=== PATIENT | male | born 1965 | race Caucasian/White ===

== ENCOUNTER 2020-02-29 08:51 | Outpatient (REF) | payer OTHER, SELFPAY | END 2020-02-29 08:52 | disposition home or self-care (01) | LOC: HO.LAB 08:51 | PROVIDERS: Visit Provider Internal Medicine | DX: Z20.828 Contact with and (suspected) exposure to other viral communicable diseases (principal) | CPT/HCPCS: C9803; U0003 ==

== ENCOUNTER 2020-09-03 10:39 | Emergency (ER) | payer OTHER, SELFPAY ==
[2020-09-03 10:47] VITALS: BP 165/98; PULSE 64; RESP 18; TEMP 36.5; O2SAT 96; BMI 32.8
--- NOTE | 2020-09-03 10:53 | PC.NURSE ---
PT USED [facility] IN [facility]. PT PROVIDED WITH PO FLUIDS.
--- NOTE | 2020-09-03 11:04 | ED_ITS ---
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 and in the last few months had LASIK on the right eye which at baseline has 2020 vision <CHI Estes Last Filed: 09/10/20 14:31> Related Data Home medications: Home Medications Medication Instructions Recorded Confirmed labetalol 300 mg tablet 300 mg PO BID 02/10/20 02/10/20 omeprazole 20 mg capsule,delayed 20 mg PO DAILY 02/10/20 02/10/20 release Previous Rx's Medication Instructions Recorded gemfibrozil 600 mg tablet 600 mg PO BID #180 tab 09/18/20 <CHI Estes Last Filed: 09/10/20 14:31> Allergies/adverse reactions: Allergies Allergy/AdvReac Type Severity Reaction Status Date / Time No Known Allergies Allergy Verified 02/10/20 09:42 [No Known Allergies*] <CHI Estes Last Filed: 09/10/20 14:31> Review of Systems Review of Systems: Positive for chemical spill exposure to eye No fever no chills no dizziness no weakness no headache no vision loss no eye pain no photophobia no discharge from high no other rash no chest pain no difficulty breathing no nausea no vomiting <CHI Estes Last Filed: 09/10/20 14:31> Yes all other systems are reviewed and are negative <CHI Estes Last Filed: 09/10/20 14:31> [facility] Past Medical History Source: nursing notes reviewed <CHI Estes Last Filed: 09/10/20 14:31> Medical History: Medical History (Updated 09/04/20 @ 00:01 by Blas Fischer) Benign essential hypertension Bipolar depression Diabetes mellitus GERD without esophagitis Mixed hyperlipidemia Obesity (BMI 30-39.9) Other bursal cyst, left ankle and foot Other cyst of bone, left hand <CHI Estes - Last Filed: 09/10/20 14:31> Surgical History: Surgical History No pertinent past surgical history <CHI Estes - Last Filed: 09/10/20 14:31> Family History Family History: Family History Father Advanced cirrhosis of liver Alcoholic cirrhosis Mother Dementia <CHI Estes - Last Filed: 09/10/20 14:31> Social History Social History: Social History (Updated 02/10/20 @ 09:47 by Fritz Shelley MD) Alcohol intake: former Advance Directives: Yes Advance Directives Information Provided: No Advance Directives on File: No <CHI Estes - Last Filed: 09/10/20 14:31> Physical Exam Vital Signs: Vital Signs: Last Vital Signs Temp 97.7 F 09/03/20 10:47 Pulse 64 09/03/20 10:47 Resp 18 09/03/20 10:47 BP 165/98 H 09/03/20 10:47 Pulse Ox 96 09/03/20 10:47 Body Mass Index 32.8 <CHI Estes - Last Filed: 09/10/20 14:31> Vital Signs: Last Vital Signs Temp 97.7 F 09/03/20 10:47 Pulse 64 09/03/20 10:47 Resp 18 09/03/20 10:47 BP 165/98 H 09/03/20 10:47 Pulse Ox 96 09/03/20 10:47 Body Mass Index 32.8 <Ronny Noland MD - Last Filed: 10/14/20 18:13> General appearance no acute distress The head is normocephalic atraumatic The eyes pupils equal round reactive to light, extraocular motions are intact Visual acuity is 2020 bilaterally, no discharge no redness Neck is supple Respiratory no acute distress Extremities no rash <CHI Estes - Last Filed: 09/10/20 14:31> Course Course Course Narrative: Both eyes are tested with pH strip and it is normal 7.0 Both eyes are stained with fluorescein, there is no dye uptake in either eye Patient did wash with copious water when he had his bleach exposure and is now asymptomatic and is discharged <CHI Estes - Last Filed: 09/10/20 14:31> I have reviewed the chart <Ronny Noland MD - Last Filed: 10/14/20 18:13> Discharge Plan Discharge Clinical Impression: Chemical exposure of eye <CHI Estes - Last Filed: 09/10/20 14:31> Patient Disposition: Home, Self-Care <CHI Estes Last Filed: 09/10/20 14:31> Additional Instructions: Our testing today showed a normal pH and no evidence of abrasion or ulceration or burn to the eye The vision in your normal good eye was 2020, we did not check the blind eye Follow with work connection if needed for any other issues related to this injury Return any concerns <CHI Estes - Last Filed: 09/10/20 14:31> Prescriptions: No Action gemfibrozil 600 mg tablet 600 mg PO BID Qty: 180 RF: 11 labetalol 300 mg tablet 300 mg PO BID RF: 0 omeprazole 20 mg capsule,delayed release(DR/EC) 20 mg PO DAILY RF: 0 <CHI Estes - Last Filed: 09/10/20 14:31> Referrals: Allen Henning MD [Physician] - 2 days (Chemical exposure to eyes, normal exam at the time of visit in the ER) <CHI Estes - Last Filed: 09/10/20 14:31> Interventions: ED Discharge Assessment Last Done: 09/03/20 11:42 <CHI Estes Last Filed: 09/10/20 14:31> Discharge Date/Time: 09/03/20 11:44 <CHI Estes Last Filed: 09/10/20 14:31>
[2020-09-03] MEDS: Tetracaine HCl/PF 0.5% Oph Sol 4 ML DROPS 3 DROP EYE-BOTH (11:11)
[2020-09-03] MEDS: Fluorescein Sodium STRIP 1 STRIP EYE-BOTH (11:12)
== END 2020-09-03 11:44 | disposition home or self-care (01) ==
PROVIDERS: Emergency Provider Emergency Medicine; PCP Internal Medicine
DX: Z77.098 Contact with and (suspected) exposure to other hazardous, chiefly nonmedicinal, chemicals (principal); Z57.9 Occupational exposure to unspecified risk factor
CPT/HCPCS: 99283

== ENCOUNTER 2020-10-29 18:42 | Inpatient (IN) | payer OTHER, SELFPAY ==
--- NOTE | 2020-10-29 | ECG_ITS ---
Test Reason : HYPOTENTION Blood Pressure : / mmHG Vent. Rate : 061 BPM Atrial Rate : 061 BPM P-R Int : 204 ms QRS Dur : 110 ms QT Int : 508 ms P-R-T Axes : 037 038 040 degrees QTc Int : 511 ms Normal sinus rhythm Prolonged QT Abnormal ECG When compared with ECG of 09-OCT-2018 20:34, Vent. rate has decreased BY 32 BPM QRS duration has increased QT has lengthened Referred By: Ronny Noland Electronically Signed By:ISRA HERNANDEZ MD
--- NOTE | ~2020-10-29 | CT_ITS ---
EXAMINATION: CT ABDOMEN AND PELVIS WITHOUT CONTRAST CLINICAL INFORMATION: Lower abdominal pain, question diverticulitis COMPARISON: 06/30/2016 TECHNIQUE: Multidetector volumetric imaging was performed from the superior aspect of the liver through the pubic symphysis. Sagittal and coronal reformatted images were obtained on the technologist's workstation. This CT examination was performed using dose optimization techniques as appropriate, variously including the following: *Automated exposure control *Adjustment of mA and/or kV according to patient size (this includes techniques or standardized protocols for targeted exams where dose is matched to indication/reason for exam; i.e. extremities or head) *Use of iterative reconstruction technique DLP: 719 mGy-cm FINDINGS: LUNG BASES: The visualized lung bases are unremarkable. Coronary artery calcifications are present. LIVER, GALLBLADDER, AND BILIARY TREE: The liver demonstrates hypoattenuation consistent with steatosis. No biliary ductal dilatation is present. The gallbladder is unremarkable with no evidence of radiopaque gallstones, gallbladder wall thickening, or obvious pericholecystic inflammatory changes. PANCREAS: No significant peripancreatic stranding. Prior cyst adjacent to the pancreatic tail on 06/30/2016 now appears essentially resolved. SPLEEN: Unremarkable. ADRENAL GLANDS: Unremarkable. KIDNEYS AND URETERS: The kidneys are normal in size, shape, and attenuation. No hydronephrosis, hydroureter, or calculi seen. BLADDER: Unremarkable. GASTROINTESTINAL TRACT: The small and large bowel are unremarkable. No findings of diverticulitis. The appendix is unremarkable. No free fluid or free air is seen. ABDOMINAL WALL: No significant hernia is appreciated. LYMPH NODES: Normal. VASCULAR: There is atherosclerotic calcification along the aorta. PELVIC VISCERA: Unremarkable. OSSEOUS STRUCTURES: Scattered endplate osteophytes are noted in the spine. CT/CT abdomen pelvis wo con IMPRESSION: No acute findings identified in the abdomen/pelvis. Hepatic steatosis.
[2020-10-29 18:55] VITALS: BP 78/40; PULSE 63; RESP 16; TEMP 36.5; O2SAT 97; BMI 31.2
--- NOTE | 2020-10-29 19:02 | ED_ITS ---
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 Patient states his last drink was yesterday. <Ronny Noland MD - Last Filed: 10/30/20 01:12> MD elicited complaint: abdominal pain <Ronny Noland MD - Last Filed: 10/30/20 01:12> Pertinent past history: other (alcoholism and pancreatitis) <Ronny Noland MD - Last Filed: 01:12> Onset (ago): day(s) (3) <Ronny Noland MD - Last Filed: 10/30/20 01:12> Location: epigastric <Ronny Noland MD - Last Filed: 10/30/20 01:12> Severity: moderate <Ronny Noland MD - Last Filed: 10/30/20 01:12> Quality: aching <Ronny Noland MD - Last Filed: 10/30/20 01:12> Associated symptoms: nausea and vomiting <Ronny Noland MD - Last Filed: 10/30/20 01:12> Related Data Home Medications: Home Medications Medication Instructions Recorded Confirmed labetalol 300 mg tablet 300 mg PO BID 02/10/20 02/10/20 omeprazole 20 mg capsule,delayed 20 mg PO DAILY 02/10/20 02/10/20 release Previous Rx's Medication Instructions Recorded gemfibrozil 600 mg tablet 600 mg PO BID #180 tab 09/18/20 metformin 500 mg tablet 500 mg PO BID #60 tab 10/20/20 <Ronny Noland MD - Last Filed: 10/30/20 01:12> Allergies/Adverse Reactions: Allergies Allergy/AdvReac Type Severity Reaction Status Date / Time No Known Allergies Allergy Verified 02/10/20 09:42 [No Known Allergies*] <Ronny Noland MD - Last Filed: 10/30/20 01:12> Review of Systems Constitutional: Reports no additional constitutional complaints <Ronny Noland MD - Last Filed: 10/30/20 01:12> Eyes: Reports no additional eye complaints <Ronny Noland MD - Last Filed: 10/30/20 01:12> Denies dizziness <Ronny Noland MD - Last Filed: 10/30/20 01:12> Cardiovascular: Reports no additional cardiovascular complaints <Ronny Noland MD - Last Filed: 10/30/20 01:12> Respiratory: Reports as per HPI <Ronny Noland MD - Last Filed: 10/30/20 01:12> Gastrointestinal: Reports no additional gastrointestinal complaints <Ronny Noland MD - Last Filed: 10/30/20 01:12> Musculoskeletal: Reports no additional musculoskeletal complaints <Ronny Noland MD - Last Filed: 10/30/20 01:12> Skin/Breast: Denies rash <Ronny Noland MD - Last Filed: 10/30/20 01:12> Reports system reviewed and no additional complaints, except as doc umented, Denies dizziness and Denies Sensory deficit (Neuro) <Ronny Noland MD - Last Filed: 10/30/20 01:12> Psychiatric: Denies anxiety <Ronny Noland MD - Last Filed: 10/30/20 01:12> Physical Exam Vital Signs: Vital Signs: Last Vital Signs Temp 97.8 F 10/30/20 04:00 Pulse 71 10/30/20 04:00 Resp 18 10/30/20 04:00 BP 92/54 L 10/30/20 04:00 Pulse Ox 94 10/30/20 04:00 Body Mass Index 31.2 <Ronny Noland MD - Last Filed: 10/30/20 01:12> Vital Signs: Last Vital Signs Temp 97.8 F 10/30/20 04:00 Pulse 71 10/30/20 04:00 Resp 18 10/30/20 04:00 BP 92/54 L 10/30/20 04:00 Pulse Ox 94 10/30/20 04:00 Body Mass Index 31.2 <Silas Jimenez MD - Last Filed: 10/30/20 04:35> Const: Other: male vomiting <Ronny Noland MD - Last Filed: 10/30/20 01:12> Nutritional Appearance: average body habitus <Ronny Noland MD - Last Filed: 10/30/20 01:12> Orientation/consciousness: oriented to person and patient oriented x3 <Ronny Noland MD - Last Filed: 10/30/20 01:12> Limitations: no limitations <Ronny Noland MD - Last Filed: 10/30/20 01:12> HENMT: Head: Yes normal to inspection <Ronny Noland MD - Last Filed: 10/30/20 01:12> Ears: external ears normal <Ronny Noland MD - Last Filed: 10/30/20 01:12> General nose exam: Normal external nose present <Ronny Noland MD - Last Filed: 10/30/20 01:12> Mouth: Normal oral and palatal mucosa present and oropharynx normal <Ronny Noland MD - Last Filed: 10/30/20 01:12> Throat: Yes posterior oropharynx normal <Ronny Noland MD - Last Filed: 10/30/20 01:12> Eyes: General: appearance normal, both eyes and all related structures < Ronny Noland MD - Last Filed: 10/30/20 01:12> Neck: Other: supple <Ronny Noland MD - Last Filed: 10/30/20 01:12> Neck: Yes normal visual inspection <Ronny Noland MD - Last Filed: 10/30/20 01:12> Chest: Chest palpation & inspection: normal inspection of the chest <Ronny Noland MD - Last Filed: 10/30/20 01:12> Resp: Auscultation: clear to auscultation bilaterally <Ronny Noland MD - Last Filed: 10/30/20 01:12> Cardio: Jugular venous distension: no JVD <Ronny Noland MD - Last Filed: 10/30/20 01:12> Rate: regular rate <Ronny Noland MD - Last Filed: 10/30/20 01:12> Rhythm: regular rhythm <Ronny Noland MD - Last Filed: 10/30/20 01:12> Heart sounds: S1 normal heart sound present and S2 normal heart sound present <Ronny Noland MD - Last Filed: 10/30/20 01:12> GI: Inspection: Yes normal to inspection <Ronny Noland MD - Last Filed: 10/30/20 01:12> Palpation (GI): Soft to palpation, nontender and No hepatosplenomegaly present <Ronny Noland MD - Last Filed: 10/30/20 01:12> Auscultation: normal bowel sounds <Ronny Noland MD - Last Filed: 10/30/20 01:12> : General: Yes no CVA tenderness <Ronny Noland MD - Last Filed: 10/30/20 01:12> Back/Spine/Pelvis: Back: no CVA tenderness <Ronny Noland MD - Last Filed: 10/30/20 01:12> Skin: General skin exam: no rashes or lesions noted <oRnny Noland MD - Last Filed: 10/30/20 01:12> Neuro: General: oriented to person and patient oriented x3 <Ronny Noland MD - Last Filed: 10/30/20 01:12> Cranial nerves: Yes CN's II-XII intact bilaterally <Ronny Noland MD - Last Filed: 10/30/20 01:12> Motor exam (neuro): 5/5 motor strength present throughout <Ronny Noland MD - Last Filed: 10/30/20 01:12> Sensory Exam: No Sensory deficit (Neuro) <Ronny Noland MD - Last Filed: 10/30/20 01:12> Extrem: General: Yes normal to inspection <Ronny Noland MD - Last Filed: 10/30/20 01:12> Psych: Appearance: grossly normal <Ronny Noland MD - Last Filed: 10/30/20 01:12> Course Course Course Narrative: Patient placed in physician observation at 1am The indication for observation is that the patient needs more time for his vomiting to settle down and wants to see detox counselor. At this time the patient is well developed well nourished, lungs clear, CV RRR, abd nontender, neuro is intact continuing with IVF and nausea medicine <Ronny Noland MD - Last Filed: 10/30/20 01:12> MDM - Abdominal Pain MDM Narrative Medical decision making narrative: 3 am Patient seen and evaluated for her and [facility] patient alcoholic came for increased nausea vomiting for last 2 days initial blood pressure was 78/40 improved to 98/60 after 5 L of IV fluid patient is still complaining of lower abdominal pain. On examination patient has percussion tenderness on the right lower quadrant? Appendicitis?? Lab workup showed WBC 93619 bicarb of 21 decreased to 14 with an anion gap of 32 blood glucose 189 magnesium 1.1 normal lipase. Serum creatinine of 1.8 Patient in severe metabolic acidosis etiology not clear also has acute renal failure. Will do abdomen set CT to rule out acute appendicitis as a cause of metabolic acidosis. Will check lactic acid level ketones blood cultures start on phenobarb protocol and plan to admit <Silas Jimenez MD - Last Filed: 10/30/20 04:35> Lab Data Result diagrams: : 10/29/20 19:16 10/30/20 01:36 <Ronny Noland MD - Last Filed: 10/30/20 01:12> Labs: Lab Results 10/29/20 10/29/20 10/29/20 Range/Units 19:16 19:16 19:16 WBC 12.0 H (4.8-10.8) X10*3/uL RBC 4.39 L (4.60-5.80) X10*6/uL Hgb 14.7 (14.0-18.0) g/dl Hct 39.9 L (42-52) % MCV 90.9 (80-98) fL MCH 33.5 H (27.0-33.0) pg MCHC 36.8 H (31.0-36.0) g/dl RDW 12.2 (11.0-16.0) % Plt Count 307 (160-400) X10*3/uL MPV 8.9 L (9.4-12.4) fL Immature Gran % (Auto) 0.5 H (0.0-0.4) % Neut % (Auto) 77.3 H (45-73) % Lymph % (Auto) 16.2 L (20-40) % Anderson % (Auto) 5.5 (2-11) % Eos % (Auto) 0.2 (0-4) % Baso % (Auto) 0.3 (0-2) % Lymph # (Auto) 1.9 (1.2-4.9) X10*3/uL Anderson # (Auto) 0.7 (0.1-1.2) X10*3/uL Eos # (Auto) 0.0 (0.0-0.4) X10*3/uL Baso # (Auto) 0.0 (0.0-0.2) X10*3/uL Abs Immat Gran (auto) 0.06 H (0.00-0.03) X10*3/uL Absolute Neuts (auto) 9.3 H (2.0-8.3) X10*3/uL Absolute Nucleated RBC 0.020 H (0.0-0.012) X10*3/uL Nucleated RBC % (auto) 0.2 (0.0-0.2) /100WBC VBG pH (7.32-7.43) VBG pCO2 mmHg VBG pO2 mmHg VBG HCO3 (22-26) mmol/L VBG O2 Saturation % VBG Base Excess mmol/L Sodium 141 (135-145) mmol/L Potassium 4.0 (3.3-5.1) mmol/L Chloride 92 L (96-108) mmol/L Carbon Dioxide 21 L (22-29) mmol/L Anion Gap 32 H (12-20) BUN 18 H (9-16) mg/dL Creatinine 1.83 H (0.5-1.4) mg/dL Estim Creat Clear Calc 50.0 Estimated GFR 39 Random Glucose 189 H (60-115) mg/dL Lactic Acid (0.5-2.0) mmol/L Calcium 8.4 (8.4-10.2) mg/dL Magnesium (1.6-2.6) mg/dL Total Bilirubin 0.7 (0.0-1.0) mg/dL Direct Bilirubin 0.3 (0.0-0.5) mg/dL AST 68 H (5-37) U/L ALT 48 H (0-40) U/L Alkaline Phosphatase 62 (39-117) U/L Troponin I High Sens 9.2 (<3.5-35.0) ng/L Total Protein 7.0 (6.5-8.0) g/dL Albumin 4.4 (3.5-5.0) g/dL Lipase 42 (8-78) U/L Urine Color Urine Appearance Urine pH (5.0-8.0) Ur Specific [place] (1.005-1.025) Urine Protein (NEG-TRACE) MG/DL Urine Glucose (UA) (NEG) MG/DL Urine Ketones (NEG) MG/DL Urine Blood (NEG) Urine Nitrite (NEG) Ur Leukocyte Esterase (NEG) Urine RBC (0) /HPF Urine WBC (0-4) /HPF Ur Squamous Epith Cells /LPF Amorphous Sediment /LPF Urine Bacteria /LPF Hyaline Casts /LPF Granular Casts /LPF Urine Opiates Screen (Not Detect) Ur Barbiturates Screen (Not Detect) Ur Phencyclidine Scrn (Not Detect) Ur Amphetamines Screen (Not Detect) U Benzodiazepines Scrn (Not Detect) Urine Cocaine Screen (Not Detect) U Marijuana (THC) Screen (Not Detect) Ethyl Alcohol mg/dL Acetone, Qual (Negative) COVID-19 ([facility]) (Negative) COVID-19 Clin Com 10/29/20 10/30/20 10/30/20 Range/Units 19:16 01:36 03:13 WBC (4.8-10.8) X10*3/uL RBC (4.60-5.80) X10*6/uL Hgb (14.0-18.0) g/dl Hct (42-52) % MCV (80-98) fL MCH (27.0-33.0) pg MCHC (31.0-36.0) g/dl RDW (11.0-16.0) % Plt Count (160-400) X10*3/uL MPV (9.4-12.4) fL Immature Gran % (Auto) (0.0-0.4) % Neut % (Auto) (45-73) % Lymph % (Auto) (20-40) % Anderson % (Auto) (2-11) % Eos % (Auto) (0-4) % Baso % (Auto) (0-2) % Lymph # (Auto) (1.2-4.9) X10*3/uL Anderson # (Auto) (0.1-1.2) X10*3/uL Eos # (Auto) (0.0-0.4) X10*3/uL Baso # (Auto) (0.0-0.2) X10*3/uL Abs Immat Gran (auto) (0.00-0.03) X10*3/uL Absolute Neuts (auto) (2.0-8.3) X10*3/uL Absolute Nucleated RBC (0.0-0.012) X10*3/uL Nucleated RBC % (auto) (0.0-0.2) /100WBC VBG pH (7.32-7.43) VBG pCO2 mmHg VBG pO2 mmHg VBG HCO3 (22-26) mmol/L VBG O2 Saturation % VBG Base Excess mmol/L Sodium 141 (135-145) mmol/L Potassium 4.9 D (3.3-5.1) mmol/L Chloride 102 (96-108) mmol/L Carbon Dioxide 14 L (22-29) mmol/L Anion Gap 30 H (12-20) BUN 21 H (9-16) mg/dL Creatinine 1.86 H (0.5-1.4) mg/dL Estim Creat Clear Calc 49.2 Estimated GFR 38 Random Glucose 142 H (60-115) mg/dL Lactic Acid (0.5-2.0) mmol/L Calcium 6.9 L D (8.4-10.2) mg/dL Magnesium 1.1 L* (1.6-2.6) mg/dL Total Bilirubin (0.0-1.0) mg/dL Direct Bilirubin (0.0-0.5) mg/dL AST (5-37) U/L ALT (0-40) U/L Alkaline Phosphatase (39-117) U/L Troponin I High Sens (<3.5-35.0) ng/L Total Protein (6.5-8.0) g/dL Albumin (3.5-5.0) g/dL Lipase (8-78) U/L Urine Color STRAW Urine Appearance HAZY Urine pH 6.0 (5.0-8.0) Ur Specific [place] 1.020 (1.005-1.025) Urine Protein 1+ H (NEG-TRACE) MG/DL Urine Glucose (UA) NEG (NEG) MG/DL Urine Ketones 15 (NEG) MG/DL Urine Blood 1+ H (NEG) Urine Nitrite NEG (NEG) Ur Leukocyte Esterase NEG (NEG) Urine RBC 0-2 (0) /HPF Urine WBC 10-14 H (0-4) /HPF Ur Squamous Epith Cells NONE /LPF Amorphous Sediment 2+ /LPF Urine Bacteria NONE /LPF Hyaline Casts 0-2 /LPF Granular Casts 0-2 /LPF Urine Opiates Screen (Not Detect) Ur Barbiturates Screen (Not Detect) Ur Phencyclidine Scrn (Not Detect) Ur Amphetamines Screen (Not Detect) U Benzodiazepines Scrn (Not Detect) Urine Cocaine Screen (Not Detect) U Marijuana (THC) Screen (Not Detect) Ethyl Alcohol 236 mg/dL Acetone, Qual (Negative) COVID-19 ([facility]) (Negative) COVID-19 Clin Com 10/30/20 10/30/20 10/30/20 Range/Units 03:13 03:30 03:30 WBC (4.8-10.8) X10*3/uL RBC (4.60-5.80) X10*6/uL Hgb (14.0-18.0) g/dl Hct (42-52) % MCV (80-98) fL MCH (27.0-33.0) pg MCHC (31.0-36.0) g/dl RDW (11.0-16.0) % Plt Count (160-400) X10*3/uL MPV (9.4-12.4) fL Immature Gran % (Auto) (0.0-0.4) % Neut % (Auto) (45-73) % Lymph % (Auto) (20-40) % Anderson % (Auto) (2-11) % Eos % (Auto) (0-4) % Baso % (Auto) (0-2) % Lymph # (Auto) (1.2-4.9) X10*3/uL Anderson # (Auto) (0.1-1.2) X10*3/uL Eos # (Auto) (0.0-0.4) X10*3/uL Baso # (Auto) (0.0-0.2) X10*3/uL Abs Immat Gran (auto) (0.00-0.03) X10*3/uL Absolute Neuts (auto) (2.0-8.3) X10*3/uL Absolute Nucleated RBC (0.0-0.012) X10*3/uL Nucleated RBC % (auto) (0.0-0.2) /100WBC VBG pH (7.32-7.43) VBG pCO2 mmHg VBG pO2 mmHg VBG HCO3 (22-26) mmol/L VBG O2 Saturation % VBG Base Excess mmol/L Sodium (135-145) mmol/L Potassium (3.3-5.1) mmol/L Chloride (96-108) mmol/L Carbon Dioxide (22-29) mmol/L Anion Gap (12-20) BUN (9-16) mg/dL Creatinine (0.5-1.4) mg/dL Estim Creat Clear Calc Estimated GFR Random Glucose (60-115) mg/dL Lactic Acid 5.5 H* (0.5-2.0) mmol/L Calcium (8.4-10.2) mg/dL Magnesium (1.6-2.6) mg/dL Total Bilirubin (0.0-1.0) mg/dL Direct Bilirubin (0.0-0.5) mg/dL AST (5-37) U/L ALT (0-40) U/L Alkaline Phosphatase (39-117) U/L Troponin I High Sens (<3.5-35.0) ng/L Total Protein (6.5-8.0) g/dL Albumin (3.5-5.0) g/dL Lipase (8-78) U/L Urine Color Urine Appearance Urine pH (5.0-8.0) Ur Specific [place] (1.005-1.025) Urine Protein (NEG-TRACE) MG/DL Urine Glucose (UA) (NEG) MG/DL Urine Ketones (NEG) MG/DL Urine Blood (NEG) Urine Nitrite (NEG) Ur Leukocyte Esterase (NEG) Urine RBC (0) /HPF Urine WBC (0-4) /HPF Ur Squamous Epith Cells /LPF Amorphous Sediment /LPF Urine Bacteria /LPF Hyaline Casts /LPF Granular Casts /LPF Urine Opiates Screen Not Detected (Not Detect) Ur Barbiturates Screen Not Detected (Not Detect) Ur Phencyclidine Scrn Not Detected (Not Detect) Ur Amphetamines Screen Not Detected (Not Detect) U Benzodiazepines Scrn Not Detected (Not Detect) Urine Cocaine Screen Not Detected (Not Detect) U Marijuana (THC) Screen Not Detected (Not Detect) Ethyl Alcohol mg/dL Acetone, Qual Small H (Negative) COVID-19 ([facility]) (Negative) COVID-19 Clin Com 10/30/20 10/30/20 Range/Units 03:32 03:35 WBC (4.8-10.8) X10*3/uL RBC (4.60-5.80) X10*6/uL Hgb (14.0-18.0) g/dl Hct (42-52) % MCV (80-98) fL MCH (27.0-33.0) pg MCHC (31.0-36.0) g/dl RDW (11.0-16.0) % Plt Count (160-400) X10*3/uL MPV (9.4-12.4) fL Immature Gran % (Auto) (0.0-0.4) % Neut % (Auto) (45-73) % Lymph % (Auto) (20-40) % Anderson % (Auto) (2-11) % Eos % (Auto) (0-4) % Baso % (Auto) (0-2) % Lymph # (Auto) (1.2-4.9) X10*3/uL Anderson # (Auto) (0.1-1.2) X10*3/uL Eos # (Auto) (0.0-0.4) X10*3/uL Baso # (Auto) (0.0-0.2) X10*3/uL Abs Immat Gran (auto) (0.00-0.03) X10*3/uL Absolute Neuts (auto) (2.0-8.3) X10*3/uL Absolute Nucleated RBC (0.0-0.012) X10*3/uL Nucleated RBC % (auto) (0.0-0.2) /100WBC VBG pH 7.37 (7.32-7.43) VBG pCO2 28 mmHg VBG pO2 95 mmHg VBG HCO3 17 L (22-26) mmol/L VBG O2 Saturation 97.0 % VBG Base Excess -6.9 mmol/L Sodium (135-145) mmol/L Potassium (3.3-5.1) mmol/L Chloride (96-108) mmol/L Carbon Dioxide (22-29) mmol/L Anion Gap (12-20) BUN (9-16) mg/dL Creatinine (0.5-1.4) mg/dL Estim Creat Clear Calc Estimated GFR Random Glucose (60-115) mg/dL Lactic Acid (0.5-2.0) mmol/L Calcium (8.4-10.2) mg/dL Magnesium (1.6-2.6) mg/dL Total Bilirubin (0.0-1.0) mg/dL Direct Bilirubin (0.0-0.5) mg/dL AST (5-37) U/L ALT (0-40) U/L Alkaline Phosphatase (39-117) U/L Troponin I High Sens (<3.5-35.0) ng/L Total Protein (6.5-8.0) g/dL Albumin (3.5-5.0) g/dL Lipase (8-78) U/L Urine Color Urine Appearance Urine pH (5.0-8.0) Ur Specific [place] (1.005-1.025) Urine Protein (NEG-TRACE) MG/DL Urine Glucose (UA) (NEG) MG/DL Urine Ketones (NEG) MG/DL Urine Blood (NEG) Urine Nitrite (NEG) Ur Leukocyte Esterase (NEG) Urine RBC (0) /HPF Urine WBC (0-4) /HPF Ur Squamous Epith Cells /LPF Amorphous Sediment /LPF Urine Bacteria /LPF Hyaline Casts /LPF Granular Casts /LPF Urine Opiates Screen (Not Detect) Ur Barbiturates Screen (Not Detect) Ur Phencyclidine Scrn (Not Detect) Ur Amphetamines Screen (Not Detect) U Benzodiazepines Scrn (Not Detect) Urine Cocaine Screen (Not Detect) U Marijuana (THC) Screen (Not Detect) Ethyl Alcohol mg/dL Acetone, Qual (Negative) COVID-19 ([facility]) Negative (Negative) COVID-19 Clin Com See Note <Ronny Noland MD - Last Filed: 10/30/20 01:12> Lab Results 10/29/20 10/29/20 10/29/20 Range/Units 19:16 19:16 19:16 WBC 12.0 H (4.8-10.8) X10*3/uL RBC 4.39 L (4.60-5.80) X10*6/uL Hgb 14.7 (14.0-18.0) g/dl Hct 39.9 L (42-52) % MCV 90.9 (80-98) fL MCH 33.5 H (27.0-33.0) pg MCHC 36.8 H (31.0-36.0) g/dl RDW 12.2 (11.0-16.0) % Plt Count 307 (160-400) X10*3/uL MPV 8.9 L (9.4-12.4) fL Immature Gran % (Auto) 0.5 H (0.0-0.4) % Neut % (Auto) 77.3 H (45-73) % Lymph % (Auto) 16.2 L (20-40) % Anderson % (Auto) 5.5 (2-11) % Eos % (Auto) 0.2 (0-4) % Baso % (Auto) 0.3 (0-2) % Lymph # (Auto) 1.9 (1.2-4.9) X10*3/uL Anderson # (Auto) 0.7 (0.1-1.2) X10*3/uL Eos # (Auto) 0.0 (0.0-0.4) X10*3/uL Baso # (Auto) 0.0 (0.0-0.2) X10*3/uL Abs Immat Gran (auto) 0.06 H (0.00-0.03) X10*3/uL Absolute Neuts (auto) 9.3 H (2.0-8.3) X10*3/uL Absolute Nucleated RBC 0.020 H (0.0-0.012) X10*3/uL Nucleated RBC % (auto) 0.2 (0.0-0.2) /100WBC VBG pH (7.32-7.43) VBG pCO2 mmHg VBG pO2 mmHg VBG HCO3 (22-26) mmol/L VBG O2 Saturation % VBG Base Excess mmol/L Sodium 141 (135-145) mmol/L Potassium 4.0 (3.3-5.1) mmol/L Chloride 92 L (96-108) mmol/L Carbon Dioxide 21 L (22-29) mmol/L Anion Gap 32 H (12-20) BUN 18 H (9-16) mg/dL Creatinine 1.83 H (0.5-1.4) mg/dL Estim Creat Clear Calc 50.0 Estimated GFR 39 Random Glucose 189 H (60-115) mg/dL Lactic Acid (0.5-2.0) mmol/L Calcium 8.4 (8.4-10.2) mg/dL Magnesium (1.6-2.6) mg/dL Total Bilirubin 0.7 (0.0-1.0) mg/dL Direct Bilirubin 0.3 (0.0-0.5) mg/dL AST 68 H (5-37) U/L ALT 48 H (0-40) U/L Alkaline Phosphatase 62 (39-117) U/L Troponin I High Sens 9.2 (<3.5-35.0) ng/L Total Protein 7.0 (6.5-8.0) g/dL Albumin 4.4 (3.5-5.0) g/dL Lipase 42 (8-78) U/L Urine Color Urine Appearance Urine pH (5.0-8.0) Ur Specific [place] (1.005-1.025) Urine Protein (NEG-TRACE) MG/DL Urine Glucose (UA) (NEG) MG/DL Urine Ketones (NEG) MG/DL Urine Blood (NEG) Urine Nitrite (NEG) Ur Leukocyte Esterase (NEG) Urine RBC (0) /HPF Urine WBC (0-4) /HPF Ur Squamous Epith Cells /LPF Amorphous Sediment /LPF Urine Bacteria /LPF Hyaline Casts /LPF Granular Casts /LPF Urine Opiates Screen (Not Detect) Ur Barbiturates Screen (Not Detect) Ur Phencyclidine Scrn (Not Detect) Ur Amphetamines Screen (Not Detect) U Benzodiazepines Scrn (Not Detect) Urine Cocaine Screen (Not Detect) U Marijuana (THC) Screen (Not Detect) Ethyl Alcohol mg/dL Acetone, Qual (Negative) COVID-19 ([facility]) (Negative) COVID-19 Clin Com 10/29/20 10/30/20 10/30/20 Range/Units 19:16 01:36 03:13 WBC (4.8-10.8) X10*3/uL RBC (4.60-5.80) X10*6/uL Hgb (14.0-18.0) g/dl Hct (42-52) % MCV (80-98) fL MCH (27.0-33.0) pg MCHC (31.0-36.0) g/dl RDW (11.0-16.0) % Plt Count (160-400) X10*3/uL MPV (9.4-12.4) fL Immature Gran % (Auto) (0.0-0.4) % Neut % (Auto) (45-73) % Lymph % (Auto) (20-40) % Anderson % (Auto) (2-11) % Eos % (Auto) (0-4) % Baso % (Auto) (0-2) % Lymph # (Auto) (1.2-4.9) X10*3/uL [place] # (Auto) (0.1-1.2) X10*3/uL Eos # (Auto) (0.0-0.4) X10*3/uL Baso # (Auto) (0.0-0.2) X10*3/uL Abs Immat Gran (auto) (0.00-0.03) X10*3/uL Absolute Neuts (auto) (2.0-8.3) X10*3/uL Absolute Nucleated RBC (0.0-0.012) X10*3/uL Nucleated RBC % (auto) (0.0-0.2) /100WBC VBG pH (7.32-7.43) VBG pCO2 mmHg VBG pO2 mmHg VBG HCO3 (22-26) mmol/L VBG O2 Saturation % VBG Base Excess mmol/L Sodium 141 (135-145) mmol/L Potassium 4.9 D (3.3-5.1) mmol/L Chloride 102 (96-108) mmol/L Carbon Dioxide 14 L (22-29) mmol/L Anion Gap 30 H (12-20) BUN 21 H (9-16) mg/dL Creatinine 1.86 H (0.5-1.4) mg/dL Estim Creat Clear Calc 49.2 Estimated GFR 38 Random Glucose 142 H (60-115) mg/dL Lactic Acid (0.5-2.0) mmol/L Calcium 6.9 L D (8.4-10.2) mg/dL Magnesium 1.1 L* (1.6-2.6) mg/dL Total Bilirubin (0.0-1.0) mg/dL Direct Bilirubin (0.0-0.5) mg/dL AST (5-37) U/L ALT (0-40) U/L Alkaline Phosphatase (39-117) U/L Troponin I High Sens (<3.5-35.0) ng/L Total Protein (6.5-8.0) g/dL Albumin (3.5-5.0) g/dL Lipase (8-78) U/L Urine Color STRAW Urine Appearance HAZY Urine pH 6.0 (5.0-8.0) Ur Specific [place] 1.020 (1.005-1.025) Urine Protein 1+ H (NEG-TRACE) MG/DL Urine Glucose (UA) NEG (NEG) MG/DL Urine Ketones 15 (NEG) MG/DL Urine Blood 1+ H (NEG) Urine Nitrite NEG (NEG) Ur Leukocyte Esterase NEG (NEG) Urine RBC 0-2 (0) /HPF Urine WBC 10-14 H (0-4) /HPF Ur Squamous Epith Cells NONE /LPF Amorphous Sediment 2+ /LPF Urine Bacteria NONE /LPF Hyaline Casts 0-2 /LPF Granular Casts 0-2 /LPF Urine Opiates Screen (Not Detect) Ur Barbiturates Screen (Not Detect) Ur Phencyclidine Scrn (Not Detect) Ur Amphetamines Screen (Not Detect) U Benzodiazepines Scrn (Not Detect) Urine Cocaine Screen (Not Detect) U Marijuana (THC) Screen (Not Detect) Ethyl Alcohol 236 mg/dL Acetone, Qual (Negative) COVID-19 (ARCENIO) (Negative) COVID-19 Clin [facility] 10/30/20 10/30/20 10/30/20 Range/Units 03:13 03:30 03:30 WBC (4.8-10.8) X10*3/uL RBC (4.60-5.80) X10*6/uL Hgb (14.0-18.0) g/dl Hct (42-52) % MCV (80-98) fL MCH (27.0-33.0) pg MCHC (31.0-36.0) g/dl RDW (11.0-16.0) % Plt Count (160-400) X10*3/uL MPV (9.4-12.4) fL Immature Gran % (Auto) (0.0-0.4) % Neut % (Auto) (45-73) % Lymph % (Auto) (20-40) % [place] % (Auto) (2-11) % Eos % (Auto) (0-4) % Baso % (Auto) (0-2) % Lymph # (Auto) (1.2-4.9) X10*3/uL [place] # (Auto) (0.1-1.2) X10*3/uL Eos # (Auto) (0.0-0.4) X10*3/uL Baso # (Auto) (0.0-0.2) X10*3/uL Abs Immat Gran (auto) (0.00-0.03) X10*3/uL Absolute Neuts (auto) (2.0-8.3) X10*3/uL Absolute Nucleated RBC (0.0-0.012) X10*3/uL Nucleated RBC % (auto) (0.0-0.2) /100WBC VBG pH (7.32-7.43) VBG pCO2 mmHg VBG pO2 mmHg VBG HCO3 (22-26) mmol/L VBG O2 Saturation % VBG Base Excess mmol/L Sodium (135-145) mmol/L Potassium (3.3-5.1) mmol/L Chloride (96-108) mmol/L Carbon Dioxide (22-29) mmol/L Anion Gap (12-20) BUN (9-16) mg/dL Creatinine (0.5-1.4) mg/dL Estim Creat Clear Calc Estimated GFR Random Glucose (60-115) mg/dL Lactic Acid 5.5 H* (0.5-2.0) mmol/L Calcium (8.4-10.2) mg/dL Magnesium (1.6-2.6) mg/dL Total Bilirubin (0.0-1.0) mg/dL Direct Bilirubin (0.0-0.5) mg/dL AST (5-37) U/L ALT (0-40) U/L Alkaline Phosphatase (39-117) U/L Troponin I High Sens (<3.5-35.0) ng/L Total Protein (6.5-8.0) g/dL Albumin (3.5-5.0) g/dL Lipase (8-78) U/L Urine Color Urine Appearance Urine pH (5.0-8.0) Ur Specific [place] (1.005-1.025) Urine Protein (NEG-TRACE) MG/DL Urine Glucose (UA) (NEG) MG/DL Urine Ketones (NEG) MG/DL Urine Blood (NEG) Urine Nitrite (NEG) Ur Leukocyte Esterase (NEG) Urine RBC (0) /HPF Urine WBC (0-4) /HPF Ur Squamous Epith Cells /LPF Amorphous Sediment /LPF Urine Bacteria /LPF Hyaline Casts /LPF Granular Casts /LPF Urine Opiates Screen Not Detected (Not Detect) Ur Barbiturates Screen Not Detected (Not Detect) Ur Phencyclidine Scrn Not Detected (Not Detect) Ur Amphetamines Screen Not Detected (Not Detect) U Benzodiazepines Scrn Not Detected (Not Detect) Urine Cocaine Screen Not Detected (Not Detect) U Marijuana (THC) Screen Not Detected (Not Detect) Ethyl Alcohol mg/dL Acetone, Qual Small H (Negative) COVID-19 (ARCENIO) (Negative) COVID-19 Clin Com 10/30/20 10/30/20 Range/Units 03:32 03:35 WBC (4.8-10.8) X10*3/uL RBC (4.60-5.80) X10*6/uL Hgb (14.0-18.0) g/dl Hct (42-52) % MCV (80-98) fL MCH (27.0-33.0) pg MCHC (31.0-36.0) g/dl RDW (11.0-16.0) % Plt Count (160-400) X10*3/uL MPV (9.4-12.4) fL Immature Gran % (Auto) (0.0-0.4) % Neut % (Auto) (45-73) % Lymph % (Auto) (20-40) % [place] % (Auto) (2-11) % Eos % (Auto) (0-4) % Baso % (Auto) (0-2) % Lymph # (Auto) (1.2-4.9) X10*3/uL [place] # (Auto) (0.1-1.2) X10*3/uL Eos # (Auto) (0.0-0.4) X10*3/uL Baso # (Auto) (0.0-0.2) X10*3/uL Abs Immat Gran (auto) (0.00-0.03) X10*3/uL Absolute Neuts (auto) (2.0-8.3) X10*3/uL Absolute Nucleated RBC (0.0-0.012) X10*3/uL Nucleated RBC % (auto) (0.0-0.2) /100WBC VBG pH 7.37 (7.32-7.43) VBG pCO2 28 mmHg VBG pO2 95 mmHg VBG HCO3 17 L (22-26) mmol/L VBG O2 Saturation 97.0 % VBG Base Excess -6.9 mmol/L Sodium (135-145) mmol/L Potassium (3.3-5.1) mmol/L Chloride (96-108) mmol/L Carbon Dioxide (22-29) mmol/L Anion Gap (12-20) BUN (9-16) mg/dL Creatinine (0.5-1.4) mg/dL Estim Creat Clear Calc Estimated GFR Random Glucose (60-115) mg/dL Lactic Acid (0.5-2.0) mmol/L Calcium (8.4-10.2) mg/dL Magnesium (1.6-2.6) mg/dL Total Bilirubin (0.0-1.0) mg/dL Direct Bilirubin (0.0-0.5) mg/dL AST (5-37) U/L ALT (0-40) U/L Alkaline Phosphatase (39-117) U/L Troponin I High Sens (<3.5-35.0) ng/L Total Protein (6.5-8.0) g/dL Albumin (3.5-5.0) g/dL Lipase (8-78) U/L Urine Color Urine Appearance Urine pH (5.0-8.0) Ur Specific [place] (1.005-1.025) Urine Protein (NEG-TRACE) MG/DL Urine Glucose (UA) (NEG) MG/DL Urine Ketones (NEG) MG/DL Urine Blood (NEG) Urine Nitrite (NEG) Ur Leukocyte Esterase (NEG) Urine RBC (0) /HPF Urine WBC (0-4) /HPF Ur Squamous Epith Cells /LPF Amorphous Sediment /LPF Urine Bacteria /LPF Hyaline Casts /LPF Granular Casts /LPF Urine Opiates Screen (Not Detect) Ur Barbiturates Screen (Not Detect) Ur Phencyclidine Scrn (Not Detect) Ur Amphetamines Screen (Not Detect) U Benzodiazepines Scrn (Not Detect) Urine Cocaine Screen (Not Detect) U Marijuana (THC) Screen (Not Detect) Ethyl Alcohol mg/dL Acetone, Qual (Negative) COVID-19 ([facility]) Negative (Negative) COVID-19 Clin Com See Note <Silas Jimenez MD - Last Filed: 10/30/20 04:35> Discharge Plan Discharge Prescriptions: No Action gemfibrozil 600 mg tablet 600 mg PO BID Qty: 180 RF: 11 metformin 500 mg tablet 500 mg PO BID Qty: 60 RF: 0 labetalol 300 mg tablet 300 mg PO BID RF: 0 omeprazole 20 mg capsule,delayed release(DR/EC) 20 mg PO DAILY RF: 0 <Ronny Noland MD - Last Filed: 10/30/20 01:12> [facility] Past Medical History Medical History: Medical History Benign essential hypertension Bipolar depression Diabetes mellitus GERD without esophagitis Mixed hyperlipidemia Obesity (BMI 30-39.9) Other bursal cyst, left ankle and foot Other cyst of bone, left hand <Ronny Noland MD - Last Filed: 10/30/20 01:12> Surgical History: Surgical History No pertinent past surgical history <Ronny Noland MD - Last Filed: 10/30/20 01:12> Family History Family History: Family History Father Advanced cirrhosis of liver Alcoholic cirrhosis Mother Dementia <Ronny Noland MD - Last Filed: 10/30/20 01:12> Social History Social History: Social History Alcohol intake: current Alcohol type: beer, wine and hard liquor Patient Tobacco Use Status: Current everyday Tobacco user Smoked in Last 30 Days: Yes Use of substances other than those prescribed or required for medical reasons: Refusing to respond Advance Directives: No Advance Directives Information Provided: No <Ronny Noland MD - Last Filed: 10/30/20 01:12>
[2020-10-29 19:21] LABS: MANUAL DIFF FLAG NO
[2020-10-29 19:22] LABS: Basophils Percent Auto 0.3 % (0-2); Eosinophils Percent Auto 0.2 % (0-4); Hematocrit 39.9 % (42-52); Hemoglobin 14.7 g/dl (14.0-18.0); Imm Gran Abs Auto 0.06 X10*3/uL (0.00-0.03); Imm Gran Pct Auto 0.5 % (0.0-0.4); Lymphocytes Absolute Auto 1.9 X10*3/uL (1.2-4.9); Lymphocytes Percent Auto 16.2 % (20-40); Mean Corpuscular HGB Conc 36.8 g/dl (31.0-36.0); Mean Corpuscular Hemoglobin 33.5 pg (27.0-33.0); Mean Corpuscular Volume 90.9 fL (80-98); Mean Platelet Volume 8.9 fL (9.4-12.4); Monocytes Absolute Auto 0.7 X10*3/uL (0.1-1.2); Monocytes Percent Auto 5.5 % (2-11); NRBC Pct Auto 0.2 /100WBC (0.0-0.2); Neutrophils Absolute Auto 9.3 X10*3/uL (2.0-8.3); Neutrophils Percent Auto 77.3 % (45-73); Platelet Count 307 X10*3/uL (160-400); Red Blood Count 4.39 X10*6/uL (4.60-5.80); Red Cell Distribution Width 12.2 % (11.0-16.0)
[2020-10-29] MEDS: ondansetron HCL 4 MG/2 ML VIAL IVPUSH (19:24)
[2020-10-29] MEDS: Pantoprazole Sodium 40 MG/10 ML VIAL IVPUSH (19:24)
[2020-10-29 19:32] VITALS: BP 82/48
--- NOTE | 2020-10-29 19:34 | PC.NURSE ---
2nd l ns hung with verbal order from helen.
[2020-10-29] MEDS: 0.9 % Sodium Chloride 1,000 ML 999 ML IVCONT ×2 (19:38→20:02)
[2020-10-29 19:52] LABS: Ethanol 236 mg/dL
[2020-10-29 19:57] LABS: Alanine Aminotransferase 48 U/L (0-40); Albumin Level 4.4 g/dL (3.5-5.0); Alkaline Phosphatase 62 U/L (39-117); Anion Gap 32 (12-20); Aspartate Amino Transferase 68 U/L (5-37); Bilirubin Direct 0.3 mg/dL (0.0-0.5); Bilirubin Total 0.7 mg/dL (0.0-1.0); Blood Urea Nitrogen 18 mg/dL (9-16); Calcium 8.4 mg/dL (8.4-10.2); Carbon Dioxide 21 mmol/L (22-29); Chloride 92 mmol/L (96-108); Estimated Glomerular Filt Rate 39; Glucose Random 189 mg/dL (60-115); Lipase 42 U/L (8-78); Sodium 141 mmol/L (135-145)
[2020-10-29 20:00] VITALS: BP 80/41; PULSE 64; RESP 18; O2SAT 96
[2020-10-29 20:01] LABS: Troponin-I High Sensitivity 9.2 ng/L (<3.5-35.0)
--- NOTE | 2020-10-29 20:57 | PC.NURSE ---
3rd liter shekhar vitale. okay for ice chips.
[2020-10-29] MEDS: Magnesium Hydrox/Alum Hydrox 30 ML ORAL.SUSP PO (21:09)
[2020-10-29] MEDS: Lidocaine HCl Viscous 2 % 15 ML SOLUTION MUCOUS MEM (21:09)
[2020-10-29] MEDS: PHENobarb/Hyoscy/Atropine/Scop 10 ML ELIXIR PO (21:09)
[2020-10-29 21:54] VITALS: BP 99/51; PULSE 69; RESP 18
[2020-10-29] MEDS: SODIUM CHLORIDE 2715 ML IV (23:38)
[2020-10-30] VITALS (12 sets, daily range): BP systolic 92–114; BP diastolic 54–73; PULSE 68–74; RESP 16–20; TEMP 36.6–37.2; O2SAT 94–97; BMI 31.4
[2020-10-30 02:20] LABS: Anion Gap 30 (12-20); Blood Urea Nitrogen 21 mg/dL (9-16); Calcium 6.9 mg/dL (8.4-10.2); Carbon Dioxide 14 mmol/L (22-29); Chloride 102 mmol/L (96-108); Creatinine Clr Calc Pharmacy 49.2; Estimated Glomerular Filt Rate 38; Glucose Random 142 mg/dL (60-115); Magnesium 1.1 mg/dL (1.6-2.6); Potassium 4.9 mmol/L (3.3-5.1); Sodium 141 mmol/L (135-145)
--- NOTE | 2020-10-30 02:20 | PC.NURSE ---
Magnesium 1.1 nurse notified notified
[2020-10-30] MEDS: Magnesium Sulfate/H2O 2 GM/50 ML PIGGYBACK IV (02:31)
[2020-10-30 03:24] LABS: Appearance Urine HAZY; Color Urine STRAW; Glucose Urine UA NEG (NEG); Leukocyte Esterase Urine NEG (NEG); Nitrite Urine NEG (NEG); Urine Blood 1+ (NEG); Urine Ketones 15 MG/DL (NEG); Urine Protein 1+ MG/DL (NEG-TRACE)
[2020-10-30] MEDS: Sodium Bicarbonate 8.4% 50 MEQ/50 ML VIAL IVPUSH (03:25)
--- NOTE | 2020-10-30 03:29 | PC.NURSE ---
REEVAL BY OVERNIGHT MD DUE TO CONTINUED COMPLAINTS OF ABD PAIN. MD AWARE. PLAN TO START PHENOBARB PROTOCOL DUE TO CONCERNS ABOUT EPISODIC DRINKING BEHAVIORS TO BE MORE CHRONIC IN NATURE. MAG INFUSED WITHOUT DIFFICULTY.
[2020-10-30 03:32] LABS: Amorphous Sediment Urine 2+ /LPF; Granular Casts Urine 0-2 /LPF; Hyaline Casts Urine 0-2 /LPF; RBC Urine 0-2 /HPF (0); UACC CULT YES
[2020-10-30 03:39] LABS: Venous Blood Gas Refer to POC result
[2020-10-30 03:41] LABS: VBG Base Excess -6.9 mmol/L; VBG HCO3 17 mmol/L (22-26); VBG pCO2 28 mmHg; VBG pH 7.37 (7.32-7.43); VBG pO2 95 mmHg
[2020-10-30 03:48] LABS: Amphetamine Screen Urine Not Detected (Not Detect); Barbiturates, Urine Not Detected (Not Detect); Benzodiazepines Screen Urine Not Detected (Not Detect); Cannabinoid Screen Urine Not Detected (Not Detect); Cocaine Screen Urine Not Detected (Not Detect); Opiate Screen Urine Not Detected (Not Detect); Phencyclidine Screen Urine Not Detected (Not Detect)
[2020-10-30] MEDS: Morphine Sulfate 4 MG/ML CARTRIDGE IVPUSH (03:52)
[2020-10-30] MEDS: ondansetron HCL 4 MG/2 ML VIAL IVPUSH (03:52)
[2020-10-30 03:53] LABS: COVID-19 Test Negative (Negative); IDNOW Serial# 9DD0AD1C
[2020-10-30 04:02] LABS: Lactic Acid 5.5 mmol/L (0.5-2.0)
[2020-10-30 04:03] LABS: Acetone, serum QL Small (Negative)
--- NOTE | 2020-10-30 04:03 | PC.NURSE ---
lactic acid 5.5 RN notified notified
[2020-10-30] MEDS: PHENobarbitaL sodium 130 MG/ML VIAL 264 MG IM (04:17)
[2020-10-30] MEDS: Piperacillin Sodium/Tazobactam 3.375 GM in 0.9 % Sodium Chloride 50 ML IV (04:18)
[2020-10-30 05:35] LABS: Reflex Lactate? Lactic Acid Added
--- NOTE | 2020-10-30 06:05 | PC.NURSE ---
LATE ENTRY 2244: DR RODRIGUES CALLED TO BEDSIDE FOR POTENTIAL SEPSIS ALERT. 2300: BP LOWER-2ND IV ESTABLISHED IN L AC. MONITORING AT THIS MARIANA. 0100: NOTIFIED OF SEVERE PAIN IN ABDOMEN BY THIS MACHINE LOAD CLERK AND 2ND RN.
[2020-10-30] MEDS: PHENobarbitaL sodium 130 MG/ML VIAL 198 MG IM ×2 (07:00→11:30)
[2020-10-30] MEDS: Morphine Sulfate 2 MG/ML CARTRIDGE IVPUSH ×4 (07:20→21:36)
[2020-10-30] MEDS: 0.9 % Sodium Chloride 1,000 ML 999 ML IV (07:21)
--- NOTE | 2020-10-30 08:25 | PHA.MEDREC ---
Pharmacy Consult ? Medication Reconciliation Pharmacy has completed the medication reconciliation. Patient reports being on Seroquel 400mg daily, however there is no recent claim history. Seroquel was last filled 12/03/2019 for Seroquel 200mg QID for a 30 day supply. Last time he took medications was yesterday (10/29/2020) morning. Stacey Currie, PharmD
[2020-10-30 08:29] LABS: ~Lactic Acid-LAB USE ONLY 2.2 mmol/L (0.5-2.0)
--- NOTE | 2020-10-30 09:05 | P.HPHOSP_ITS ---
History of Present Illness Date of Service: 10/30/20 Chief Complaint: abd pain 55M ETOH dependence, presented after 4 days of binge drinking with epigastric pain, nausea, vomitting, inability to tolerate po, denies fever, chills, sob, chest pain. symptoms started one day ptp, are continuous, relieved by antiemetic s. in ED found to have AGMA, lactic acidosis, hypomagnesemia, hypotension. given IV fluids, phenobarbital, PPI, magnesium. Review of Systems Review of Systems: Constitutional: Denies fever, denies Chills Eyes: denies blurry vision ENT: denies sore throat CVS: denies chest pain Respiratory: Denies dyspnea GI: abdominal pain : denies dysuria MSK: denies neck pain Skin: denies rash Neuro: denies specific motor weakness Psych: denies suicidal ideation Endocrine: denies heat/cold intoleratnce Hematologic: denies easy bleeding Allergy: denies hives PMFSH Medical History Benign essential hypertension Bipolar depression Diabetes mellitus GERD without esophagitis Mixed hyperlipidemia Obesity (BMI 30-39.9) Other bursal cyst, left ankle and foot Other cyst of bone, left hand Family History Father Advanced cirrhosis of liver Alcoholic cirrhosis Mother Dementia Surgical History No pertinent past surgical history Social History Alcohol intake: current Alcohol type: beer, wine and hard liquor Patient Tobacco Use Status: Current everyday Tobacco user Smoked in Last 30 Days: Yes Use of substances other than those prescribed or required for medical reasons: Refusing to respond Advance Directives: No Advance Directives Information Provided: No Meds Allergies Allergy/AdvReac Type Severity Reaction Status Date / Time No Known Allergies Allergy Verified 02/10/20 09:42 [No Known Allergies*] Active Medications: Current Medications Generic Name Dose Route Start Last Admin Trade Name Freq PRN Reason Stop Dose Admin Enoxaparin Sodium 40 mg 10/30/20 09:15 Enoxaparin Sodium 40 Mg/0.4 Ml Syringe SUBCUT Q24H [facility] Lactated Ringer's 1,000 mls @ 100 mls/hr 10/30/20 09:15 Lr IVCONT .Q10H [facility] Insulin Human Lispro 0 unit 10/30/20 11:30 Insulin Lispro 100 Unit/Ml 3 Ml Vial SUBCUT QIDACHS [facility] Protocol Medication 1 each 10/30/20 09:00 No Benzodiazepines MISCELLANE DAILY [facility] Omeprazole 20 mg 10/30/20 09:00 Omeprazole 20 Mg Capsule.Dr PO DAILY [facility] Pharmacy Consult 1 each 10/30/20 07:49 Consult Rx Perform Med Rec MISCELLANE ONCE PRN Consult order Phenobarbital 45 mg 10/30/20 21:00 Phenobarbital 15 Mg Tablet PO 11/01/20 09:01 BID [facility] Protocol Phenobarbital 15 mg 11/04/20 09:00 Phenobarbital 15 Mg Tablet PO 11/05/20 09:01 DAILY [facility] Protocol Phenobarbital 15 mg 11/01/20 21:00 Phenobarbital 15 Mg Tablet PO 11/03/20 09:01 BID [facility] Protocol Phenobarbital Sodium 198 mg 10/30/20 07:30 10/30/20 07:00 Phenobarbital Sodium 130 Mg/Ml Vial IM 10/30/20 10:31 198 mg Q3H [facility] Administration Quetiapine Fumarate 400 mg 10/30/20 09:00 Quetiapine Fumarate 400 Mg Tablet PO DAILY [facility] Sodium Chloride 3 ml 10/30/20 16:00 0.9 % Sodium Chloride Flush 3 Ml Syringe IVFLUSH QSHIFT [facility] Home Medications Medication Instructions Recorded Confirmed Last Taken Type labetalol 300 mg tablet 300 mg PO BID 02/10/20 10/30/20 10/29/20 09:00 History omeprazole 20 mg capsule,delayed 20 mg PO DAILY 02/10/20 10/30/20 10/29/20 09:00 History release multivitamin 1 tab PO DAILY 10/30/20 10/30/20 10/29/20 09:00 History omega-3 fatty acids [Fish Oil] 1,000 mg PO DAILY 10/30/20 10/30/20 10/29/20 09:00 History quetiapine [Seroquel] 400 mg PO DAILY 10/30/20 10/30/20 10/29/20 09:00 History Physical Exam Vital Signs and Narrative: Vital Signs: Last Vital Signs Temp 97.8 F 10/30/20 04:00 Pulse 70 07/22/21 07:08 Resp 18 10/30/20 07:08 BP 94/55 L 10/30/20 07:08 Pulse Ox 96 10/30/20 07:08 Body Mass Index 31.2 General: no acute distress HEENT: atraumatic Neck: normal to visual inspection CVS: S1, S2, RRR Resp: CTA bilateral Chest: non tender GI: soft, non tender, non distended : no CVA tenderness Skin: no rashes Extremities: no edema Neuro: Oriented X3, grossly intact, tremulous Psych: cooperative Results Labs CBC and Chem 7: 10/29/20 19:16 10/30/20 01:36 Labs: Laboratory Results - last 24 hr 10/29/20 10/29/20 10/29/20 19:16 19:16 19:16 MCV 90.9 MCH 33.5 H MCHC 36.8 H RDW 12.2 Plt Count 307 MPV 8.9 L Immature Gran % (Auto) 0.5 H Neut % (Auto) 77.3 H Lymph % (Auto) 16.2 L [place] % (Auto) 5.5 Eos % (Auto) 0.2 Baso % (Auto) 0.3 Lymph # (Auto) 1.9 [place] # (Auto) 0.7 Eos # (Auto) 0.0 Baso # (Auto) 0.0 Abs Immat Gran (auto) 0.06 H Absolute Neuts (auto) 9.3 H Absolute Nucleated RBC 0.020 H Nucleated RBC % (auto) 0.2 VBG pH VBG pCO2 VBG pO2 VBG HCO3 VBG O2 Saturation VBG Base Excess Anion Gap 32 H Estim Creat Clear Calc 50.0 Estimated GFR 39 Random Glucose 189 H Lactic Acid Lactic Acid Fup @ 2Hr Calcium 8.4 Magnesium Total Bilirubin 0.7 Direct Bilirubin 0.3 AST 68 H ALT 48 H Alkaline Phosphatase 62 Troponin I High Sens 9.2 Total Protein 7.0 Albumin 4.4 Lipase 42 Urine Color Urine Appearance Urine pH Ur Specific [place] Urine Protein Urine Glucose (UA) Urine Ketones Urine Blood Urine Nitrite Ur Leukocyte Esterase Urine RBC Urine WBC Ur Squamous Epith Cells Amorphous Sediment Urine Bacteria Hyaline Casts Granular Casts Urine Opiates Screen Ur Barbiturates Screen Ur Phencyclidine Scrn Ur Amphetamines Screen U Benzodiazepines Scrn Urine Cocaine Screen U Marijuana (THC) Screen Ethyl Alcohol Acetone, Qual COVID-19 ([facility]) COVID-19 Clin Com 10/29/20 10/30/20 10/30/20 19:16 01:36 03:13 MCV MCH MCHC RDW Plt Count MPV Immature Gran % (Auto) Neut % (Auto) Lymph % (Auto) [place] % (Auto) Eos % (Auto) Baso % (Auto) Lymph # (Auto) [place] # (Auto) Eos # (Auto) Baso # (Auto) Abs Immat Gran (auto) Absolute Neuts (auto) Absolute Nucleated RBC Nucleated RBC % (auto) VBG pH VBG pCO2 VBG pO2 VBG HCO3 VBG O2 Saturation VBG Base Excess Anion Gap 30 H Estim Creat Clear Calc 49.2 Estimated GFR 38 Random Glucose 142 H Lactic Acid Lactic Acid Fup @ 2Hr Calcium 6.9 L D Magnesium 1.1 L* Total Bilirubin Direct Bilirubin AST ALT Alkaline Phosphatase Troponin I High Sens Total Protein Albumin Lipase Urine Color STRAW Urine Appearance HAZY Urine pH 6.0 Ur Specific [place] 1.020 Urine Protein 1+ H Urine Glucose (UA) NEG Urine Ketones 15 Urine Blood 1+ H Urine Nitrite NEG Ur Leukocyte Esterase NEG Urine RBC 0-2 Urine WBC 10-14 H Ur Squamous Epith Cells NONE Amorphous Sediment 2+ Urine Bacteria NONE Hyaline Casts 0-2 Granular Casts 0-2 Urine Opiates Screen Ur Barbiturates Screen Ur Phencyclidine Scrn Ur Amphetamines Screen U Benzodiazepines Scrn Urine Cocaine Screen U Marijuana (THC) Screen Ethyl Alcohol 236 Acetone, Qual COVID-19 ([facility]) COVID-19 Clin Com 10/30/20 10/30/20 10/30/20 03:13 03:30 03:30 MCV MCH MCHC RDW Plt Count MPV Immature Gran % (Auto) Neut % (Auto) Lymph % (Auto) [place] % (Auto) Eos % (Auto) Baso % (Auto) Lymph # (Auto) [place] # (Auto) Eos # (Auto) Baso # (Auto) Abs Immat Gran (auto) Absolute Neuts (auto) Absolute Nucleated RBC Nucleated RBC % (auto) VBG pH VBG pCO2 VBG pO2 VBG HCO3 VBG O2 Saturation VBG Base Excess Anion Gap Estim Creat Clear Calc Estimated GFR Random Glucose Lactic Acid 5.5 H* Lactic Acid Fup @ 2Hr Calcium Magnesium Total Bilirubin Direct Bilirubin AST ALT Alkaline Phosphatase Troponin I High Sens Total Protein Albumin Lipase Urine Color Urine Appearance Urine pH Ur Specific [place] Urine Protein Urine Glucose (UA) Urine Ketones Urine Blood Urine Nitrite Ur Leukocyte Esterase Urine RBC Urine WBC Ur Squamous Epith Cells Amorphous Sediment Urine Bacteria Hyaline Casts Granular Casts Urine Opiates Screen Not Detected Ur Barbiturates Screen Not Detected Ur Phencyclidine Scrn Not Detected Ur Amphetamines Screen Not Detected U Benzodiazepines Scrn Not Detected Urine Cocaine Screen Not Detected U Marijuana (THC) Screen Not Detected Ethyl Alcohol Acetone, Qual Small H COVID-19 ([facility]) COVID-19 Clin Com 10/30/20 10/30/20 10/30/20 03:32 03:35 07:58 MCV MCH MCHC RDW Plt Count MPV Immature Gran % (Auto) Neut % (Auto) Lymph % (Auto) [place] % (Auto) Eos % (Auto) Baso % (Auto) Lymph # (Auto) [place] # (Auto) Eos # (Auto) Baso # (Auto) Abs Immat Gran (auto) Absolute Neuts (auto) Absolute Nucleated RBC Nucleated RBC % (auto) VBG pH 7.37 VBG pCO2 28 VBG pO2 95 VBG HCO3 17 L VBG O2 Saturation 97.0 VBG Base Excess -6.9 Anion Gap Estim Creat Clear Calc Estimated GFR Random Glucose Lactic Acid Lactic Acid Fup @ 2Hr 2.2 H* Calcium Magnesium Total Bilirubin Direct Bilirubin AST ALT Alkaline Phosphatase Troponin I High Sens Total Protein Albumin Lipase Urine Color Urine Appearance Urine pH Ur Specific [place] Urine Protein Urine Glucose (UA) Urine Ketones Urine Blood Urine Nitrite Ur Leukocyte Esterase Urine RBC Urine WBC Ur Squamous Epith Cells Amorphous Sediment Urine Bacteria Hyaline Casts Granular Casts Urine Opiates Screen Ur Barbiturates Screen Ur Phencyclidine Scrn Ur Amphetamines Screen U Benzodiazepines Scrn Urine Cocaine Screen U Marijuana (THC) Screen Ethyl Alcohol Acetone, Qual COVID-19 ([facility]) Negative COVID-19 Clin Com See Note Imaging Radiologist's Impressions: Impressions Abdomen/Pelvis CT 10/30/20 03:09 IMPRESSION: No acute findings identified in the abdomen/pelvis. Hepatic steatosis. Assessment and Plan (1) Alcohol abuse with withdrawal: Status: Acute 55M presented with abdominal pain, etoh withdrawl, found to have AGMA, hypotension, hypomagnesemia. alcohol dependence with withdrawl, fatty liver, alcoholic gastritis, AGMA lactic acidosis due to nausea and vomitting, metformin, not sepsis IVF, ppi monitor lfts, bmp phenobarb CIWA DM insulin, hold metformin htn relatively hypotensive, hold labetolol Quality Stroke Does the patient have a stroke diagnosis?: No VTE Prior VTE?: No VTE Risk Level:: Medical - moderate - high VTE Device Contraindication: Treatment Not Indicated VTE Drug Contraindication: N/A - Med Ordered
[2020-10-30] MEDS: Omeprazole 20 MG CAPSULE.DR PO (09:33)
[2020-10-30] MEDS: QUEtiapine Fumarate 400 MG TABLET PO (09:33)
[2020-10-30] MEDS: Lactated Ringers 1,000 ML 100 ML IVCONT ×2 (09:37→21:23)
[2020-10-30 10:00] LABS: Reflex Lactate? 2 Y
[2020-10-30] MEDS: Insulin Lispro 100 UNIT/ML 3 ML VIAL SUBCUT ×3 (11:31→21:36)
[2020-10-30 11:41] LABS: Glucose, Whole Blood 171 mg/dL (60-115)
[2020-10-30 11:44] LABS: ~Lactic Acid-LAB USE ONLY 2.6 mmol/L (0.5-2.0)
--- NOTE | 2020-10-30 11:45 | PC.NURSE ---
Patient having nausea and pain at this time. MD Worthy sent a message requesting medication.
[2020-10-30] MEDS: 0.9 % Sodium Chloride Flush 3 ML SYRINGE IVFLUSH (15:44)
[2020-10-30 18:32] LABS: Glucose, Whole Blood 196 mg/dL (60-115)
--- NOTE | 2020-10-30 20:05 | MHC.CM.PN ---
CM met with admitted patient pending bed assignment. HCP/son Jonathan Juan ([phone]). HCP is on file. HCP #2 S.O. Gabrielle Naranjo ([phone]). Pt lives with girlfriend, Has no DME and no services. No service. Pt interested in recovery support services. States I need to get my drinking under control . States he has had 2 years sobriety in past. States I want to keep my job . D/C plan is home with recovery support services. Transportation by family. CM to follow for d/c needs.
--- NOTE | 2020-10-30 20:33 | PC.NURSE ---
Report given to I[facility] RN
[2020-10-30 21:25] LABS: Glucose, Whole Blood 232 mg/dL (60-115)
[2020-10-30] MEDS: PHENobarbitaL 15 MG TABLET 45 MG PO (21:36)
[2020-10-31] VITALS (7 sets, daily range): BP systolic 116–174; BP diastolic 70–104; PULSE 72–87; RESP 18–19; TEMP 35.9–37.6; O2SAT 94–97
[2020-10-31] MEDS: Lactated Ringers 1,000 ML 100 ML IVCONT ×2 (06:17→22:01)
[2020-10-31 06:24] LABS: Hematocrit 31.4 % (42-52); Hemoglobin 10.9 g/dl (14.0-18.0); Mean Corpuscular HGB Conc 34.7 g/dl (31.0-36.0); Mean Corpuscular Hemoglobin 32.8 pg (27.0-33.0); Mean Corpuscular Volume 94.6 fL (80-98); Mean Platelet Volume 9.8 fL (9.4-12.4); Platelet Count 137 X10*3/uL (160-400); Red Blood Count 3.32 X10*6/uL (4.60-5.80); Red Cell Distribution Width 12.6 % (11.0-16.0); White Blood Count 5.7 X10*3/uL (4.8-10.8)
[2020-10-31 06:41] LABS: Prothrombin Time 11.2 SEC (9.9-13.0)
[2020-10-31 07:31] LABS: Glucose, Whole Blood 169 mg/dL (60-115)
[2020-10-31 08:02] LABS: Alanine Aminotransferase 33 U/L (0-40); Aspartate Amino Transferase 56 U/L (5-37); Bilirubin Direct 0.3 mg/dL (0.0-0.5); Bilirubin Total 0.6 mg/dL (0.0-1.0); Blood Urea Nitrogen 12 mg/dL (9-16); Creatinine Clr Calc Pharmacy 89.1; Estimated Glomerular Filt Rate > 60; Glucose Fasting 161 mg/dL (60-99); Magnesium 1.6 mg/dL (1.6-2.6)
[2020-10-31 08:17] LABS: Albumin Level 3.5 g/dL (3.5-5.0); Alkaline Phosphatase 44 U/L (39-117); Anion Gap 13 (12-20); Calcium 7.3 mg/dL (8.4-10.2); Carbon Dioxide 27 mmol/L (22-29); Chloride 102 mmol/L (96-108); Potassium 3.5 mmol/L (3.3-5.1); Sodium 138 mmol/L (135-145); Total Protein 5.4 g/dL (6.5-8.0)
[2020-10-31] MEDS: Insulin Lispro 100 UNIT/ML 3 ML VIAL SUBCUT ×3 (08:49→22:00)
[2020-10-31] MEDS: Morphine Sulfate 2 MG/ML CARTRIDGE IVPUSH ×2 (08:50→19:31)
[2020-10-31] MEDS: Enoxaparin Sodium 40 MG/0.4 ML SYRINGE SUBCUT (08:50)
[2020-10-31] MEDS: PHENobarbitaL 15 MG TABLET 45 MG PO ×2 (08:50→22:00)
[2020-10-31] MEDS: Omeprazole 20 MG CAPSULE.DR PO (08:51)
[2020-10-31] MEDS: QUEtiapine Fumarate 400 MG TABLET PO (08:51)
[2020-10-31 11:29] LABS: Glucose, Whole Blood 145 mg/dL (60-115)
--- NOTE | 2020-10-31 11:36 | HO.PM.IMPN ---
Subjective Subjective Date of Service: 10/31/20 Interval History: back pain, heartburn Cardiovascular Cardiovascular: Reports no additional cardiovascular complaints Respiratory Respiratory: Reports no additional respiratory complaints Physical Exam Vital Signs: Vital Signs: Last Vital Signs Temp 99.7 F 10/31/20 11:04 Pulse 77 10/31/20 11:04 Resp 18 10/31/20 11:04 BP 132/78 10/31/20 11:04 Pulse Ox 97 10/31/20 11:04 Body Mass Index 31.4 General: AO X 3, anxious Resp: CTA bilateral CVS: S1,S2,RRR GI: soft, non tender, non distended Neuro: motor grossly intact Psych: appropriate affect Objective Data Current Medications Generic Name Dose Route Start Last Admin Trade Name Freq PRN Reason Stop Dose Admin Calcium Carbonate 750 mg 10/31/20 10:24 Calcium Carbonate 750 Mg Tab.Chew PO Q6H PRN heartburn Enoxaparin Sodium 40 mg 10/30/20 10:00 10/31/20 08:50 Enoxaparin Sodium 40 Mg/0.4 Ml Syringe SUBCUT 40 mg Q24H [facility] Administration Lactated Ringer's 1,000 mls @ 100 mls/hr 10/30/20 09:15 10/31/20 06:17 Lr IVCONT 100 mls/hr .Q10H [facility] Administration Insulin Human Lispro 0 unit 10/30/20 11:30 10/31/20 08:49 Insulin Lispro 100 Unit/Ml 3 Ml Vial SUBCUT 2 unit QIDACHS [facility] Administration Protocol Medication 1 each 10/30/20 09:00 No Benzodiazepines MISCELLANE DAILY [facility] Morphine Sulfate 2 mg 10/30/20 11:50 10/31/20 08:50 Morphine Sulfate 2 Mg/Ml Cartridge IVPUSH 2 mg Q3H PRN Administration pain Omeprazole 20 mg 10/30/20 09:00 10/31/20 08:51 Omeprazole 20 Mg Capsule.Dr PO 20 mg DAILY [facility] Administration Ondansetron HCl 4 mg 10/30/20 11:50 Ondansetron Hcl 4 Mg/2 Ml Vial IVPUSH Q6H PRN nausea Pharmacy Consult 1 each 10/30/20 07:49 Consult Rx Perform Med Rec MISCELLANE ONCE PRN Consult order Phenobarbital 45 mg 10/30/20 21:00 10/31/20 08:50 Phenobarbital 15 Mg Tablet PO 11/01/20 09:01 45 mg BID [facility] Administration Protocol Phenobarbital 15 mg 11/04/20 09:00 Phenobarbital 15 Mg Tablet PO 11/05/20 09:01 DAILY [facility] Protocol Phenobarbital 15 mg 11/01/20 21:00 Phenobarbital 15 Mg Tablet PO 11/03/20 09:01 BID [facility] Protocol Quetiapine Fumarate 400 mg 10/30/20 09:00 10/31/20 08:51 Quetiapine Fumarate 400 Mg Tablet PO 400 mg DAILY [facility] Administration Sodium Chloride 3 ml 10/30/20 16:00 10/31/20 08:51 0.9 % Sodium Chloride Flush 3 Ml Syringe IVFLUSH Not Given QSHIFT [facility] Labs CBC & Chem 7: 10/31/20 05:22 10/31/20 05:22 Labs: Laboratory Results - last 24 hr 10/30/20 10/30/20 10/30/20 10:54 11:19 18:28 WBC RBC Hgb Hct MCV MCH MCHC RDW Plt Count MPV Absolute Nucleated RBC Nucleated RBC % (auto) PT INR Sodium Potassium Chloride Carbon Dioxide Anion Gap BUN Creatinine Estim Creat Clear Calc Estimated GFR POC Glucose 171 H 196 H Fasting Glucose Lactic Acid Fup @ 4Hr 2.6 H* Calcium Magnesium Total Bilirubin Direct Bilirubin AST ALT Alkaline Phosphatase Total Protein Albumin 10/30/20 10/31/20 10/31/20 21:21 05:22 05:22 WBC 5.7 RBC 3.32 L D Hgb 10.9 L D Hct 31.4 L D MCV 94.6 MCH 32.8 MCHC 34.7 RDW 12.6 Plt Count 137 L D MPV 9.8 Absolute Nucleated RBC 0.000 Nucleated RBC % (auto) 0.0 PT 11.2 INR 1.0 Sodium Potassium Chloride Carbon Dioxide Anion Gap BUN Creatinine Estim Creat Clear Calc Estimated GFR POC Glucose 232 H Fasting Glucose Lactic Acid Fup @ 4Hr Calcium Magnesium Total Bilirubin Direct Bilirubin AST ALT Alkaline Phosphatase Total Protein Albumin 10/31/20 10/31/20 10/31/20 05:22 07:14 11:03 WBC RBC Hgb Hct MCV MCH MCHC RDW Plt Count MPV Absolute Nucleated RBC Nucleated RBC % (auto) PT INR Sodium 138 Potassium 3.5 D Chloride 102 Carbon Dioxide 27 Anion Gap 13 BUN 12 Creatinine 1.03 Estim Creat Clear Calc 89.1 Estimated GFR > 60 POC Glucose 169 H 145 H Fasting Glucose 161 H Lactic Acid Fup @ 4Hr Calcium 7.3 L Magnesium 1.6 Total Bilirubin 0.6 Direct Bilirubin 0.3 AST 56 H ALT 33 Alkaline Phosphatase 44 D Total Protein 5.4 L D Albumin 3.5 D Microbiology Microbiology Results: Microbiology 10/30/20 Unknown Urine Culture - Final Urine clean catch - Urine rivera top No growth. 10/30/20 03:30 Blood Culture - Preliminary Blood - Venous No growth after 24 hours. 10/30/20 03:30 Blood Culture - Preliminary Blood - Venous No growth after 24 hours. Quality Stroke Does the patient have a stroke diagnosis?: No VTE Prior VTE?: No VTE Risk Level:: Medical - moderate - high VTE Device Contraindication: Treatment Not Indicated VTE Drug Contraindication: N/A - Med Ordered Assessment and Plan (1) Alcohol abuse with withdrawal: Status: Acute Assessment and Plan: 55M presented with abdominal pain, etoh withdrawl, found to have AGMA, hypotension, hypomagnesemia. alcohol dependence with withdrawal, fatty liver, alcoholic gastritis, AGMA lactic acidosis due to nausea and vomiting, metformin, not sepsis IVF, ppi monitor lfts, bmp phenobarb CIWA acidosis resolved improving, still with scoring on CIWA - 3 DM insulin, hold metformin htn relatively hypotensive, hold labetolol
--- NOTE | 2020-10-31 11:57 | MHC.CM.PN ---
EMR REVIEWED, PT REMAINS IN WITHDRAWAL AND ON PHENOBARBITOL PROTOCOL, PT TO BE SEEN BY RECOVERY SUPPORT NURSE PRIOR TO D/C, POSSIBLE D/C OVER W/E. D/C PLAN HOME SELF-CARE, FAMILY FOR TRANSPORT.
[2020-10-31] MEDS: Calcium Carbonate 750 MG TAB.CHEW PO (12:11)
--- NOTE | 2020-10-31 13:41 | MHC.CLN ---
NUTRITION CHANGED DIET TO DIABETIC 2000 KCAL TO PROVIDE 27.3 KCAL/KG CMW.
[2020-10-31 15:44] LABS: Glucose, Whole Blood 270 mg/dL (60-115)
[2020-10-31 20:38] LABS: Glucose, Whole Blood 174 mg/dL (60-115)
[2020-10-31] MEDS: 0.9 % Sodium Chloride Flush 3 ML SYRINGE IVFLUSH (23:59)
[2020-11-01] VITALS (7 sets, daily range): BP systolic 150–184; BP diastolic 94–109; PULSE 69–85; RESP 18–20; TEMP 36.4–37.1; O2SAT 94–96
--- NOTE | 2020-11-01 | ECG_ITS ---
Test Reason : chest pain Blood Pressure : / mmHG Vent. Rate : 076 BPM Atrial Rate : 076 BPM P-R Int : 196 ms QRS Dur : 092 ms QT Int : 406 ms P-R-T Axes : 005 -01 024 degrees QTc Int : 456 ms Normal sinus rhythm Normal ECG When compared to the previous EKG of QT has shortened Referred By: Herson Worthy Electronically Signed By:ISRA HERNANDEZ MD
--- NOTE | 2020-11-01 04:20 | MHC.PIE ---
P.174/104, 180/107 I.DR LEE UPDATED.ORDER FOR LABETOLOL 100MG PO X1 GIVEN.PT UPDATED AND MED GIVEN E.BP 150/96 AFTER.
[2020-11-01] MEDS: Labetalol HCL 100 MG TABLET PO (04:50)
[2020-11-01] MEDS: Morphine Sulfate 2 MG/ML CARTRIDGE IVPUSH ×3 (05:08→18:32)
[2020-11-01 07:31] LABS: Alanine Aminotransferase 29 U/L (0-40); Albumin Level 3.8 g/dL (3.5-5.0); Alkaline Phosphatase 52 U/L (39-117); Anion Gap 13 (12-20); Aspartate Amino Transferase 44 U/L (5-37); Bilirubin Direct 0.3 mg/dL (0.0-0.5); Bilirubin Total 0.7 mg/dL (0.0-1.0); Blood Urea Nitrogen 5 mg/dL (9-16); Calcium 7.6 mg/dL (8.4-10.2); Carbon Dioxide 31 mmol/L (22-29); Chloride 100 mmol/L (96-108); Creatinine Clr Calc Pharmacy 114.8; Estimated Glomerular Filt Rate > 60; Glucose Fasting 159 mg/dL (60-99); Magnesium 1.5 mg/dL (1.6-2.6); Potassium 3.3 mmol/L (3.3-5.1); Sodium 141 mmol/L (135-145); Total Protein 5.9 g/dL (6.5-8.0)
[2020-11-01 07:31] LABS: Glucose, Whole Blood 152 mg/dL (60-115)
[2020-11-01] MEDS: Omeprazole 20 MG CAPSULE.DR PO (07:56)
[2020-11-01] MEDS: PHENobarbitaL 15 MG TABLET 45 MG PO (07:56)
[2020-11-01] MEDS: QUEtiapine Fumarate 400 MG TABLET PO (07:56)
[2020-11-01] MEDS: Insulin Lispro 100 UNIT/ML 3 ML VIAL SUBCUT ×4 (07:57→20:44)
[2020-11-01] MEDS: Potassium Chloride ER 20 MEQ TAB.ER.PRT 40 MEQ PO (07:57)
[2020-11-01] MEDS: Magnesium Oxide 400 MG TABLET PO ×2 (07:57→16:36)
[2020-11-01] MEDS: Lactated Ringers 1,000 ML 100 ML IVCONT (08:17)
[2020-11-01 10:59] LABS: Glucose, Whole Blood 213 mg/dL (60-115)
--- NOTE | 2020-11-01 11:33 | HO.PM.IMPN ---
Subjective Subjective Date of Service: 11/01/20 Interval History: odynophagia Physical Exam Vital Signs: Vital Signs: Last Vital Signs Temp 97.7 F 11/01/20 08:00 Pulse 77 11/01/20 08:00 Resp 18 11/01/20 08:00 BP 158/94 H 11/01/20 08:00 Pulse Ox 94 11/01/20 08:00 Body Mass Index 31.4 General: AO X 3, anxious Resp: CTA bilateral heent: christin candidiasis CVS: S1,S2,RRR GI: soft, non tender, non distended Neuro: motor grossly intact Psych: appropriate affect Objective Data Current Medications Generic Name Dose Route Start Last Admin Trade Name Freq PRN Reason Stop Dose Admin Calcium Carbonate 750 mg 10/31/20 10:24 10/31/20 12:11 Calcium Carbonate 750 Mg Tab.Chew PO 750 mg Q6H PRN Administration heartburn Enoxaparin Sodium 40 mg 10/30/20 10:00 10/31/20 08:50 Enoxaparin Sodium 40 Mg/0.4 Ml Syringe SUBCUT 40 mg Q24H MAILE Administration Insulin Human Lispro 0 unit 10/30/20 11:30 11/01/20 07:57 Insulin Lispro 100 Unit/Ml 3 Ml Vial SUBCUT 2 unit QIDACHS [facility] Administration Protocol Lidocaine/Diphenhydr/Alum/Mg/Simeth 10 ml 11/01/20 09:30 Mag&Al/Sim/Diphenhyd/Lidocaine 10 Ml Oral.Susp PO Q4H PRN odynophagia Protocol Magnesium Oxide 400 mg 11/01/20 08:30 11/01/20 07:57 Magnesium Oxide 400 Mg Tablet PO 400 mg BIDPC MAILE Administration Medication 1 each 10/30/20 09:00 No Benzodiazepines MISCELLANE DAILY MAILE Morphine Sulfate 2 mg 10/30/20 11:50 11/01/20 05:08 Morphine Sulfate 2 Mg/Ml Cartridge IVPUSH 2 mg Q3H PRN Administration pain Nystatin 400,000 unit 11/01/20 13:00 Nystatin Oral Susp 500,000 Unit/5 Ml Oral.Susp PO QID [facility] Protocol Omeprazole 20 mg 10/30/20 09:00 11/01/20 07:56 Omeprazole 20 Mg Capsule.Dr PO 20 mg DAILY [facility] Administration Ondansetron HCl 4 mg 10/30/20 11:50 Ondansetron Hcl 4 Mg/2 Ml Vial IVPUSH Q6H PRN nausea Pharmacy Consult 1 each 10/30/20 07:49 Consult Rx Perform Med Rec MISCELLANE ONCE PRN Consult order Phenobarbital 15 mg 11/04/20 09:00 Phenobarbital 15 Mg Tablet PO 11/05/20 09:01 DAILY [facility] Protocol Phenobarbital 15 mg 11/01/20 21:00 Phenobarbital 15 Mg Tablet PO 11/03/20 09:01 BID [facility] Protocol Quetiapine Fumarate 400 mg 10/30/20 09:00 11/01/20 07:56 Quetiapine Fumarate 400 Mg Tablet PO 400 mg DAILY [facility] Administration Sodium Chloride 3 ml 10/30/20 16:00 11/01/20 07:58 0.9 % Sodium Chloride Flush 3 Ml Syringe IVFLUSH Not Given QSHIFT [facility] Labs CBC & Chem 7: 10/31/20 05:22 11/01/20 05:33 Labs: Laboratory Results - last 24 hr 10/31/20 10/31/20 11/01/20 15:40 20:34 05:33 Sodium 141 Potassium 3.3 Chloride 100 Carbon Dioxide 31 H Anion Gap 13 BUN 5 L D Creatinine 0.80 Estim Creat Clear Calc 114.8 Estimated GFR > 60 POC Glucose 270 H 174 H Fasting Glucose 159 H Calcium 7.6 L Magnesium 1.5 L Total Bilirubin 0.7 Direct Bilirubin 0.3 AST 44 H ALT 29 Alkaline Phosphatase 52 Troponin I High Sens Total Protein 5.9 L Albumin 3.8 11/01/20 11/01/20 11/01/20 07:24 09:14 10:55 Sodium Potassium Chloride Carbon Dioxide Anion Gap BUN Creatinine Estim Creat Clear Calc Estimated GFR POC Glucose 152 H 213 H Fasting Glucose Calcium Magnesium Total Bilirubin Direct Bilirubin AST ALT Alkaline Phosphatase Troponin I High Sens 9.0 Total Protein Albumin Microbiology Microbiology Results: Microbiology 10/30/20 03:30 Blood Culture - Preliminary Blood - Venous No growth after 48 hours. 10/30/20 03:30 Blood Culture - Preliminary Blood - Venous No growth after 48 hours. 10/30/20 Unknown Urine Culture - Final Urine clean catch - Urine rivera top No growth. Quality Stroke Does the patient have a stroke diagnosis?: No VTE Prior VTE?: No VTE Risk Level:: Medical - moderate - high VTE Device Contraindication: Treatment Not Indicated VTE Drug Contraindication: N/A - Med Ordered Assessment and Plan (1) Alcohol abuse with withdrawal: Status: Acute Assessment and Plan: 55M presented with abdominal pain, etoh withdrawl, found to have AGMA, hypotension, hypomagnesemia. alcohol dependence with withdrawal, fatty liver, alcoholic gastritis, AGMA lactic acidosis due to nausea and vomiting, metformin, not sepsis ppi phenobarb CIWA acidosis resolved improving but still having withdrawal symptoms odynophagia appears to be roula nystatin, magic mouthwash DM insulin, hold metformin htn restart labetolol
[2020-11-01] MEDS: Nystatin Oral Susp 500,000 UNIT/5 ML ORAL.SUSP 400000 UNIT PO ×3 (12:03→22:32)
[2020-11-01] MEDS: Enoxaparin Sodium 40 MG/0.4 ML SYRINGE SUBCUT (12:04)
[2020-11-01 16:09] LABS: Glucose, Whole Blood 153 mg/dL (60-115)
[2020-11-01] MEDS: 0.9 % Sodium Chloride Flush 3 ML SYRINGE IVFLUSH ×2 (16:37→22:32)
[2020-11-01] MEDS: Mag&Al/Sim/Diphenhyd/Lidocaine 10 ML ORAL.SUSP PO (20:12)
[2020-11-01] MEDS: Calcium Carbonate 750 MG TAB.CHEW PO (20:12)
[2020-11-01 20:21] LABS: Glucose, Whole Blood 213 mg/dL (60-115)
[2020-11-01] MEDS: HYDROmorphone HCl 0.5 MG/0.5 ML SYRINGE IVPUSH (20:44)
[2020-11-01] MEDS: Labetalol HCL 100 MG TABLET 300 MG PO (22:31)
[2020-11-01] MEDS: PHENobarbitaL 15 MG TABLET PO (22:32)
[2020-11-02] VITALS (9 sets, daily range): BP systolic 118–157; BP diastolic 84–99; PULSE 66–95; RESP 17–19; TEMP 36.1–36.7; O2SAT 94–98
[2020-11-02] MEDS: HYDROmorphone HCl 0.5 MG/0.5 ML SYRINGE IVPUSH ×6 (03:56→20:18)
--- NOTE | 2020-11-02 06:09 | PC.NURSE ---
Pt pain remaining elevated at 9/10 epigastric and upper chest pain. MD notified. Morphine changed to 0.5mg dilauded PRN Q4hr. This has good effect on patient.
[2020-11-02 07:04] LABS: Hematocrit 34.6 % (42-52); Hemoglobin 12.4 g/dl (14.0-18.0); Mean Corpuscular HGB Conc 35.8 g/dl (31.0-36.0); Mean Corpuscular Hemoglobin 33.5 pg (27.0-33.0); Mean Corpuscular Volume 93.5 fL (80-98); Mean Platelet Volume 9.9 fL (9.4-12.4); Platelet Count 147 X10*3/uL (160-400); Red Cell Distribution Width 11.9 % (11.0-16.0); White Blood Count 4.7 X10*3/uL (4.8-10.8)
[2020-11-02 07:41] LABS: Anion Gap 16 (12-20); Blood Urea Nitrogen 7 mg/dL (9-16); Carbon Dioxide 31 mmol/L (22-29); Chloride 96 mmol/L (96-108); Creatinine Clr Calc Pharmacy 117.7; Estimated Glomerular Filt Rate > 60; Glucose Fasting 152 mg/dL (60-99); Magnesium 1.4 mg/dL (1.6-2.6); Potassium 3.3 mmol/L (3.3-5.1); Sodium 140 mmol/L (135-145)
[2020-11-02 07:54] LABS: Calcium 8.4 mg/dL (8.4-10.2)
[2020-11-02 07:55] LABS: Glucose, Whole Blood 169 mg/dL (60-115)
[2020-11-02] MEDS: Insulin Lispro 100 UNIT/ML 3 ML VIAL SUBCUT ×4 (08:30→20:24)
[2020-11-02] MEDS: Mag&Al/Sim/Diphenhyd/Lidocaine 10 ML ORAL.SUSP PO ×2 (08:32→16:17)
[2020-11-02] MEDS: Enoxaparin Sodium 40 MG/0.4 ML SYRINGE SUBCUT (08:32)
[2020-11-02] MEDS: QUEtiapine Fumarate 400 MG TABLET PO (08:34)
[2020-11-02] MEDS: Nystatin Oral Susp 500,000 UNIT/5 ML ORAL.SUSP 400000 UNIT PO ×3 (08:35→16:24)
[2020-11-02] MEDS: Magnesium Oxide 400 MG TABLET PO ×2 (08:38→16:20)
[2020-11-02] MEDS: Omeprazole 20 MG CAPSULE.DR PO (08:38)
[2020-11-02] MEDS: PHENobarbitaL 15 MG TABLET PO ×2 (08:40→20:17)
[2020-11-02] MEDS: Labetalol HCL 100 MG TABLET 300 MG PO ×2 (08:41→20:17)
[2020-11-02] MEDS: Potassium Chloride ER 20 MEQ TAB.ER.PRT 40 MEQ PO (08:50)
[2020-11-02] MEDS: 0.9 % Sodium Chloride Flush 3 ML SYRINGE IVFLUSH ×3 (08:52→20:16)
--- NOTE | 2020-11-02 10:51 | HO.PM.IMPN ---
Subjective Subjective Date of Service: 11/02/20 Interval History: not feeling well, odynophagia Cardiovascular Cardiovascular: Reports no additional cardiovascular complaints Gastrointestinal Gastrointestinal: Reports no additional gastrointestinal complaints Physical Exam Vital Signs: Vital Signs: Last Vital Signs Temp 97.4 F 11/02/20 08:00 Pulse 95 11/02/20 08:41 Resp 18 11/02/20 08:00 BP 144/99 H 11/02/20 08:41 Pulse Ox 95 11/02/20 08:00 Body Mass Index 31.4 General: AO X 3, anxious Resp: CTA bilateral heent: oral candidiasis CVS: S1,S2,RRR GI: soft, non tender, non distended Neuro: motor grossly intact Psych: appropriate affect Objective Data Current Medications Generic Name Dose Route Start Last Admin Trade Name Freq PRN Reason Stop Dose Admin Calcium Carbonate 750 mg 10/31/20 10:24 11/01/20 20:12 Calcium Carbonate 750 Mg Tab.Chew PO 750 mg Q6H PRN Administration heartburn Enoxaparin Sodium 40 mg 10/30/20 10:00 11/02/20 08:32 Enoxaparin Sodium 40 Mg/0.4 Ml Syringe SUBCUT 40 mg Q24H [facility]ILE Administration Hydromorphone HCl 0.5 mg 11/01/20 20:19 11/02/20 08:31 Hydromorphone Hcl 0.5 Mg/0.5 Ml Syringe IVPUSH 0.5 mg Q4H PRN Administration Breakthrough Pain Insulin Human Lispro 0 unit 10/30/20 11:30 11/02/20 08:30 Insulin Lispro 100 Unit/Ml 3 Ml Vial SUBCUT 2 unit QIDACHS [facility] Administration Protocol Labetalol HCl 300 mg 11/01/20 21:00 11/02/20 08:41 Labetalol Hcl 100 Mg Tablet PO 300 mg BID [facility] Administration Lidocaine/Diphenhydr/Alum/Mg/Simeth 10 ml 11/01/20 09:30 11/02/20 08:32 Mag&Al/Sim/Diphenhyd/Lidocaine 10 Ml Oral.Susp PO 10 ml Q4H PRN Administration odynophagia Protocol Magnesium Oxide 400 mg 11/01/20 08:30 11/02/20 08:38 Magnesium Oxide 400 Mg Tablet PO 400 mg BIDPC MAILE Administration Medication 1 each 10/30/20 09:00 No Benzodiazepines MISCELLANE DAILY [facility] Nystatin 400,000 unit 11/01/20 13:00 11/02/20 08:35 Nystatin Oral Susp 500,000 Unit/5 Ml Oral.Susp PO 400,000 unit QID [facility] Administration Protocol Omeprazole 20 mg 10/30/20 09:00 11/02/20 08:38 Omeprazole 20 Mg Capsule.Dr PO 20 mg DAILY MAILE Administration Ondansetron HCl 4 mg 10/30/20 11:50 Ondansetron Hcl 4 Mg/2 Ml Vial IVPUSH Q6H PRN nausea Pharmacy Consult 1 each 10/30/20 07:49 Consult Rx Perform Med Rec MISCELLANE ONCE PRN Consult order Phenobarbital 15 mg 11/04/20 09:00 Phenobarbital 15 Mg Tablet PO 11/05/20 09:01 DAILY [facility] Protocol Phenobarbital 15 mg 11/01/20 21:00 11/02/20 08:40 Phenobarbital 15 Mg Tablet PO 11/03/20 09:01 15 mg BID [facility] Administration Protocol Quetiapine Fumarate 400 mg 10/30/20 09:00 11/02/20 08:34 Quetiapine Fumarate 400 Mg Tablet PO 400 mg DAILY [facility] Administration Sodium Chloride 3 ml 10/30/20 16:00 11/02/20 08:52 0.9 % Sodium Chloride Flush 3 Ml Syringe IVFLUSH 3 ml QSHIFT [facility] Administration Labs CBC & Chem 7: 11/02/20 05:20 11/02/20 05:20 Labs: Laboratory Results - last 24 hr 11/01/20 11/01/20 11/01/20 10:55 16:06 20:18 WBC RBC Hgb Hct MCV MCH MCHC RDW Plt Count MPV Absolute Nucleated RBC Nucleated RBC % (auto) Sodium Potassium Chloride Carbon Dioxide Anion Gap BUN Creatinine Estim Creat Clear Calc Estimated GFR POC Glucose 213 H 153 H 213 H Fasting Glucose Calcium Magnesium 11/02/20 11/02/20 11/02/20 05:20 05:20 07:51 WBC 4.7 L RBC 3.70 L Hgb 12.4 L Hct 34.6 L MCV 93.5 MCH 33.5 H MCHC 35.8 RDW 11.9 Plt Count 147 L MPV 9.9 Absolute Nucleated RBC 0.000 Nucleated RBC % (auto) 0.0 Sodium 140 Potassium 3.3 Chloride 96 Carbon Dioxide 31 H Anion Gap 16 BUN 7 L Creatinine 0.78 Estim Creat Clear Calc 117.7 Estimated GFR > 60 POC Glucose 169 H Fasting Glucose 152 H Calcium 8.4 D Magnesium 1.4 L* Quality Stroke Does the patient have a stroke diagnosis?: No VTE Prior VTE?: No VTE Risk Level:: Medical - moderate - high VTE Device Contraindication: Treatment Not Indicated VTE Drug Contraindication: N/A - Med Ordered Assessment and Plan (1) Alcohol abuse with withdrawal: Status: Acute Assessment and Plan: 55M presented with abdominal pain, etoh withdrawl, found to have AGMA, hypotension, hypomagnesemia. alcohol dependence with withdrawal, fatty liver, alcoholic gastritis, AGMA lactic acidosis due to nausea and vomiting, metformin, not sepsis ppi phenobarb CIWA acidosis resolved improving but still having withdrawal symptoms odynophagia appears to be roual continue nystatin, magic mouthwash hypokalemia, hypomagnesemia replace, monitor DM insulin, hold metformin htn restart labetolol
[2020-11-02 12:27] LABS: Glucose, Whole Blood 140 mg/dL (60-115)
[2020-11-02 16:02] LABS: Glucose, Whole Blood 184 mg/dL (60-115)
[2020-11-02 20:23] LABS: Glucose, Whole Blood 177 mg/dL (60-115)
[2020-11-03 03:38] VITALS: BP 150/103; PULSE 86; RESP 20; TEMP 37.1; O2SAT 97
[2020-11-03] MEDS: HYDROmorphone HCl 0.5 MG/0.5 ML SYRINGE IVPUSH ×3 (04:26→12:52)
[2020-11-03 06:04] LABS: Anion Gap 14 (12-20); Blood Urea Nitrogen 9 mg/dL (9-16); Carbon Dioxide 30 mmol/L (22-29); Chloride 98 mmol/L (96-108); Creatinine Clr Calc Pharmacy 119.2; Estimated Glomerular Filt Rate > 60; Glucose Fasting 164 mg/dL (60-99); Magnesium 1.5 mg/dL (1.6-2.6); Potassium 3.8 mmol/L (3.3-5.1); Sodium 138 mmol/L (135-145)
[2020-11-03 07:14] VITALS: BP 135/96; PULSE 82; RESP 20; TEMP 37.1; O2SAT 97
[2020-11-03 07:18] LABS: Glucose, Whole Blood 159 mg/dL (60-115)
[2020-11-03] MEDS: Insulin Lispro 100 UNIT/ML 3 ML VIAL SUBCUT ×2 (07:30→11:39)
[2020-11-03 07:31] VITALS: BP 135/96; PULSE 82
[2020-11-03] MEDS: Labetalol HCL 100 MG TABLET 300 MG PO (07:31)
[2020-11-03] MEDS: PHENobarbitaL 15 MG TABLET PO ×2 (07:31→07:36)
[2020-11-03] MEDS: Magnesium Oxide 400 MG TABLET PO (07:31)
[2020-11-03] MEDS: Omeprazole 20 MG CAPSULE.DR PO (07:31)
[2020-11-03] MEDS: Nystatin Oral Susp 500,000 UNIT/5 ML ORAL.SUSP 400000 UNIT PO ×2 (07:31→11:39)
[2020-11-03] MEDS: QUEtiapine Fumarate 400 MG TABLET PO (07:31)
[2020-11-03] MEDS: 0.9 % Sodium Chloride Flush 3 ML SYRINGE IVFLUSH (07:32)
[2020-11-03] MEDS: Mag&Al/Sim/Diphenhyd/Lidocaine 10 ML ORAL.SUSP PO (09:46)
[2020-11-03 10:38] LABS: Glucose, Whole Blood 194 mg/dL (60-115)
[2020-11-03 11:12] VITALS: BP 126/82; PULSE 68; RESP 20; TEMP 36.2; O2SAT 95
[2020-11-03 11:17] LABS: Glucose, Whole Blood 188 mg/dL (60-115)
--- NOTE | 2020-11-03 12:51 | PM.DS ---
DS: Providers Provider Date of Service: 11/03/20 Date of admission: 10/30/20 09:04 Primary care physician: Unknown Physician Consults: 10/29/20 23:48 Consult to Care Team Stat Comment: Reason for consultation: needs detox DS: Diagnosis Discharge Diagnosis (1) Alcohol abuse with withdrawal: Status: Acute DS: Medications Discharge Medications Home Medications: Home Medications Medication Instructions Recorded Confirmed labetalol 300 mg tablet 300 mg PO BID 02/10/20 10/30/20 omeprazole 20 mg capsule,delayed 20 mg PO DAILY 02/10/20 10/30/20 release multivitamin 1 tab PO DAILY 10/30/20 10/30/20 omega-3 fatty acids 1,000 mg PO DAILY 10/30/20 10/30/20 quetiapine [Seroquel] 400 mg PO DAILY 10/30/20 10/30/20 Previous Rx's Medication Instructions Recorded gemfibrozil 600 mg tablet 600 mg PO BID #180 tab 09/18/20 metformin 500 mg tablet 500 mg PO BID #60 tab 10/20/20 nystatin 400,000 unit PO QID 14 Days #224 ml 11/03/20 DS: Summary Hospital Course Hospital Course: patient was admitted for alcohol dependence with withdrawl complicated by anion gap metabolic acidosis/ lactic acidosis, hypokalemia and hypomagnesemia. he was given phenobarbital, potassium, magnesium. symptoms and labs improved. he was also noted to have oral candidiasis with odynophagia, he was given nystatin and will continue for 2 weeks. if no improvement should follow up with GI. Time Spent with Patient Time attestation: Total time spent providing and/or coordinating discharge services: Discharge coordination time: Greater than 30 minutes Quality: Stroke Does the patient have a stroke diagnosis?: No Physical Exam Vital Signs: Vital Signs: Last Vital Signs Temp 97.1 F 11/03/20 11:12 Pulse 68 11/03/20 11:12 Resp 20 11/03/20 11:12 BP 126/82 11/03/20 11:12 Pulse Ox 95 11/03/20 11:12 Body Mass Index 31.4 General: AO X 3, no acute distress Resp: CTA bilateral CVS: S1,S2,RRR GI: soft, non tender, non distended Neuro: motor grossly intact Psych: appropriate affect DS: Data Data Completed and Pending Labs on day of discharge: Laboratory Results - last 24 hr 11/02/20 11/02/20 11/02/20 11:13 15:58 20:17 Sodium Potassium Chloride Carbon Dioxide Anion Gap BUN Creatinine Estim Creat Clear Calc Estimated GFR POC Glucose 194 H 184 H 177 H Fasting Glucose Calcium Magnesium 11/03/20 11/03/20 11/03/20 05:12 07:13 11:14 Sodium 138 Potassium 3.8 Chloride 98 Carbon Dioxide 30 H Anion Gap 14 BUN 9 Creatinine 0.77 Estim Creat Clear Calc 119.2 Estimated GFR > 60 POC Glucose 159 H 188 H Fasting Glucose 164 H Calcium 9.0 D Magnesium 1.5 L Preliminary micro results at discharge 10/30/20 03:30 Blood Culture - Preliminary Blood - Venous No growth after 48 hours. 10/30/20 03:30 Blood Culture - Preliminary Blood - Venous No growth after 48 hours. Discharge Plan Discharge Patient Disposition: Home, Self-Care Discharge Diagnosis: etoh withdrawal Referrals: Kiara Stephenson MD [Physician] - 1 Week Physician,Unknown [Primary Care Provider] - 1 Week Discharge Medications: New nystatin 100,000 unit/mL Suspension 400,000 unit PO QID 14 Days Qty: 224 RF: 0 Continued gemfibrozil 600 mg tablet 600 mg PO BID Qty: 180 RF: 11 multivitamin Tablet 1 tab PO DAILY RF: 0 omega-3 fatty acids Capsule 1,000 mg PO DAILY RF: 0 quetiapine [Seroquel] 400 mg Tablet 400 mg PO DAILY RF: 0 metformin 500 mg tablet 500 mg PO BID Qty: 60 RF: 0 labetalol 300 mg tablet 300 mg PO BID RF: 0 omeprazole 20 mg capsule,delayed release(DR/EC) 20 mg PO DAILY RF: 0 Discharge Orders: Discharge Order (Routine); Ordered 11/03/20 Ordered By: Herson Worthy Diet: advance to usual diet Activity on Discharge: As tolerated Stand Alone Forms: Patient Portal Discharge page, Work/School Release Care Plan Goals: recovery Health Concerns: etoh, roula Plan of Treatment: nystatin for 2 weeks, avoid etoh, OTC prilosec Assessment: see above
--- NOTE | 2020-11-03 14:00 | MHC.CM.PN ---
Male 55 dx ETOH W/D He is discharged today to home. He has arranged for transport.
== END 2020-11-03 15:30 | disposition home or self-care (01) | DRG 392 ==
LOC: HO.ED 20:03 → HO.EDOVER 10-30 09:12 → HO.IMC 10-30 19:41
PROVIDERS: Internal Medicine; Admitting Provider Internal Medicine; Emergency Provider Emergency Medicine; Visit Provider Internal Medicine
DX: K29.20 Alcoholic gastritis without bleeding (principal); F10.239 Alcohol dependence with withdrawal, unspecified; E87.2 Acidosis; B37.0 Candidal stomatitis; K21.9 Gastro-esophageal reflux disease without esophagitis; E83.42 Hypomagnesemia; R13.10 Dysphagia, unspecified; K76.0 Fatty (change of) liver, not elsewhere classified; Z20.822 Contact with and (suspected) exposure to COVID-19; E87.6 Hypokalemia; F17.210 Nicotine dependence, cigarettes, uncomplicated; Z71.6 Tobacco abuse counseling; E11.9 Type 2 diabetes mellitus without complications; I10 Essential (primary) hypertension; Z79.899 Other long term (current) drug therapy
CPT/HCPCS: 36415; 74176; 80048; 80053; 80076; 80307; 81001; 82009; 82077; 82803; 82947; 83605; 83690; 83735; 84484; 85025; 85027; 85610; 87040; 87086; 87635; 93005; 99285; J1170; J1650; J2270; J2405; J2543; J2550; J2560; J3475

== ENCOUNTER 2021-01-09 16:23 | Inpatient (IN) | payer BC, MEDICAID, SELFPAY ==
--- NOTE | ~2021-01-09 | CT_ITS ---
EXAMINATION: CT ABDOMEN AND PELVIS WITH CONTRAST CLINICAL INFORMATION: Elevated lipase. Epigastric pain. COMPARISON: CT abdomen pelvis October 30, 2020 TECHNIQUE: Multidetector volumetric images were obtained from the superior aspect of the liver through the pubic symphysis following administration 85 mL of Omnipaque 350 intravenous contrast. Sagittal and coronal reformatted images were obtained on the technologist's workstation. Oral contrast: No This CT examination was performed using dose optimization techniques as appropriate, variously including the following: *Automated exposure control *Adjustment of mA and/or kV according to patient size (this includes techniques or standardized protocols for targeted exams where dose is matched to indication/reason for exam; i.e. extremities or head) *Use of iterative reconstruction technique DLP: 679 mGy-cm FINDINGS: LUNG BASES: The visualized lung bases are unremarkable. LIVER, GALLBLADDER, AND BILIARY TREE: There is diffuse low attenuation of liver parenchyma due to fatty change. No focal liver lesion or intrahepatic bile duct dilatation. The liver is enlarged. Right lobe of liver measures 25 cm superior inferior. The gallbladder is unremarkable with no evidence of radiopaque gallstones, gallbladder wall thickening, or obvious pericholecystic inflammatory changes. PANCREAS: Unremarkable. SPLEEN: Unremarkable. ADRENAL GLANDS: Unremarkable. KIDNEYS AND URETERS: The kidneys are normal in size, shape, and attenuation. No hydronephrosis, hydroureter, or calculi seen. No perinephric stranding. BLADDER: Unremarkable. GASTROINTESTINAL TRACT: The small and large bowel are unremarkable. The appendix is unremarkable. ABDOMINAL WALL: No significant hernia is appreciated. LYMPH NODES: Normal. VASCULAR: Unremarkable. PELVIC VISCERA: Unremarkable. OSSEOUS STRUCTURES: No acute osteoporotic. Mild degenerative spondylosis of the spine. CT/CT abdomen pelvis w con IMPRESSION: No acute abnormality CT scan abdomen pelvis. Medically. Hepatic steatosis.
[2021-01-09 16:28] VITALS: BP 150/100; PULSE 130; O2SAT 91
[2021-01-09 16:34] VITALS: BP 127/105; PULSE 118; RESP 15; TEMP 37.3; O2SAT 94; BMI 28.7
--- NOTE | 2021-01-09 16:42 | ED_ITS ---
HPI - Alcohol General Chief Complaint: ETOH/Substance Use Stated Complaint: alcohol withdrawal Time Seen by Provider: 01/09/21 16:38 Source: patient Mode of arrival: ambulatory Limitations: no limitations History of Present Illness HPI narrative: 55-year-old male presents emergency department stating that he wants to go to detox. Patient arrived in the room was asleep when I went to talk the patient started stating that he has abdominal pain. He did not complain about this to the front room and he started shaking once I came into the room. Patient was demanding pain meds. Patient admits drinking 3 hours pr ior to arrival he denies fevers cough or shortness of breath. Patient has history of acid reflux Related Data Home Medications Medication Instructions Recorded Confirmed omeprazole 20 mg capsule,delayed 20 mg PO DAILY 02/10/20 10/30/20 release multivitamin 1 tab PO DAILY 10/30/20 10/30/20 omega-3 fatty acids 1,000 mg PO DAILY 10/30/20 10/30/20 quetiapine 400 mg tablet (Seroquel) 400 mg PO DAILY 10/30/20 10/30/20 Previous Rx's Medication Instructions Recorded gemfibrozil 600 mg tablet 600 mg PO BID #180 tab 09/18/20 metformin 500 mg tablet 500 mg PO BID #60 tab 10/20/20 nystatin 100,000 unit/mL oral 400,000 unit PO QID 14 Days #224 ml 11/03/20 suspension labetalol 300 mg tablet 300 mg PO BID #180 tab 11/08/20 Allergies Allergy/AdvReac Type Severity Reaction Status Date / Time No Known Allergies Allergy Verified 02/10/20 09:42 [No Known Allergies*] Review of Systems Review of Systems: Review of systems: General: Patient denies any fever chills recent illness or falls Musculoskeletal: Denies back pain or body aches or other injuries HEENT: denies headache, runny nose, ear pain Respiratory: denies shortness of breath, cough Cardiovascular: no chest pain or palpitations : denies dysuria, frequency Abdomen: no nausea vomiting has epigastricabdominal pain Extremities: no swelling, no pain Skin: no diaphoresis Yes all other systems are reviewed and are negative PMFSH Past Medical History Medical History Benign essential hypertension Bipolar depression Diabetes mellitus GERD without esophagitis Mixed hyperlipidemia Obesity (BMI 30-39.9) Other bursal cyst, left ankle and foot Other cyst of bone, left hand Surgical History No pertinent past surgical history Family History Family History Father Advanced cirrhosis of liver Alcoholic cirrhosis Mother Dementia Social History Social History Household Members: Other Housing: House Do you presently have visiting nurse or other home services: No Alcohol intake: current Alcohol intake frequency: 3 or more drinks per day Alcohol type: beer and hard liquor Patient Tobacco Use Status: Current everyday Tobacco user Tobacco use type: Cigarette e-Cigarette/Vaping Use: Currently Using Use of substances other than those prescribed or required for medical reasons: Unknown Advance Directives: No Advance Directives Information Provided: Yes service: No Current occupational status: employed Physical Exam Vital Signs: Vital Signs: Last Vital Signs Temp 99.1 F 01/09/21 16:34 Pulse 113 H 01/09/21 18:34 Resp 24 H 01/09/21 18:34 BP 137/86 01/09/21 18:34 Pulse Ox 96 01/09/21 18:34 Body Mass Index 28.7 General: Well-appearing well-nourished in no signs of distress HEENT: Normocephalic atraumatic Neck: No signs of JVD, no masses no tenderness or lymphadenopathy Cardiovascular: Regular rate and rhythm Respiratory: Clear to auscultation bilaterally Abdomen: Soft nontender no masses rectal exam performed guia negative clinical quality assurance specialist confirmed. Extremities: Normal pedal pulses no signs of edema Skin: Dry warm no rashes Back: No tenderness full ROM Course Course Course Narrative: 1723 Ammonia is minimally elevated not to the point where the patient will need admission. I will continue with the rest of the workup. Signs of dehydration with hemoconcentration and Hemoglobin of 18. MDM - Alcohol MDM Narrative Medical decision making narrative: Patient looks well vitals are completely normal other than low but tachycardic with patient's fluids Ativan droperidol for his pain and Pepcid. I will check labs including alcohol level urine drug screen will check an ammonia level since patient is complaining of pain he does not look ill at this time. 175 Patient with minimally elevated lipase I will get patient over for CT abdomen pelvis Patient still tachycardic after 1 liter of fluid and 2 of ativan. Signs of dehydration so he will get a 2nd liter. I will give another 2 of ativan as well. Patient sleeping in the room at this time. 1830Patient with very elevated LFT is within this technically 5 and ALT 455. I spoke with Dr. Fernandez from gastroenterology thinks this is likely related to something else not test alcohol. Wanted a PT INR PTT an acute hepatitis panel. He states that he will formally consult on the patient after admission and agrees and consents to be admitted for this. He agrees that CT scan as this at this time. 1916 CT does not show any acute abnormality patient will be admitted to the hospitalist service for further evaluation of his elevated AST and hepatitis no signs of pancreatitis on the CT scan. Lab Data Result diagrams: 01/09/21 16:50 01/09/21 16:50 Labs: Lab Results 01/09/21 01/09/21 01/09/21 Range/Units 16:50 16:50 16:50 WBC 15.1 H (4.8-10.8) X10*3/uL RBC 5.75 D (4.60-5.80) X10*6/uL Hgb 18.9 H D (14.0-18.0) g/dl Hct 51.4 D (42-52) % MCV 89.4 (80-98) fL MCH 32.9 (27.0-33.0) pg MCHC 36.8 H (31.0-36.0) g/dl RDW 12.8 (11.0-16.0) % Plt Count 265 D (160-400) X10*3/uL MPV 9.0 L (9.4-12.4) fL Immature Gran % (Auto) 0.4 (0.0-0.4) % Neut % (Auto) 80.0 H (45-73) % Lymph % (Auto) 14.1 L (20-40) % [place] % (Auto) 4.8 (2-11) % Eos % (Auto) 0.1 (0-4) % Baso % (Auto) 0.6 (0-2) % Lymph # (Auto) 2.1 (1.2-4.9) X10*3/uL [place] # (Auto) 0.7 (0.1-1.2) X10*3/uL Eos # (Auto) 0.0 (0.0-0.4) X10*3/uL Baso # (Auto) 0.1 (0.0-0.2) X10*3/uL Abs Immat Gran (auto) 0.06 H (0.00-0.03) X10*3/uL Absolute Neuts (auto) 12.1 H (2.0-8.3) X10*3/uL Absolute Nucleated RBC 0.000 (0.0-0.012) X10*3/uL Nucleated RBC % (auto) 0.0 (0.0-0.2) /100WBC Sodium 130 L (135-145) mmol/L Potassium 3.7 (3.3-5.1) mmol/L Chloride 90 L (96-108) mmol/L Carbon Dioxide 13 L (22-29) mmol/L Anion Gap 31 H (12-20) BUN 16 D (9-16) mg/dL Creatinine 1.07 (0.5-1.4) mg/dL Estim Creat Clear Calc 82.3 Estimated GFR > 60 Random Glucose 245 H D (60-115) mg/dL Calcium 8.3 L D (8.4-10.2) mg/dL Total Bilirubin 1.1 H (0.0-1.0) mg/dL Direct Bilirubin 0.5 (0.0-0.5) mg/dL AST 955 H (5-37) U/L ALT 555 H (0-40) U/L Alkaline Phosphatase 78 D (39-117) U/L Ammonia 56 H (13-55) umol/L Total Protein 7.6 D (6.5-8.0) g/dL Albumin 4.6 D (3.5-5.0) g/dL Lipase 81 H (8-78) U/L Salicylates < 5.0 L (15-30) mg/dL Acetaminophen < 1 (<30) mcg/mL Ethyl Alcohol mg/dL Acetone, Qual Negative (Negative) 01/09/21 Range/Units 16:50 WBC (4.8-10.8) X10*3/uL RBC (4.60-5.80) X10*6/uL Hgb (14.0-18.0) g/dl Hct (42-52) % MCV (80-98) fL MCH (27.0-33.0) pg MCHC (31.0-36.0) g/dl RDW (11.0-16.0) % Plt Count (160-400) X10*3/uL MPV (9.4-12.4) fL Immature Gran % (Auto) (0.0-0.4) % Neut % (Auto) (45-73) % Lymph % (Auto) (20-40) % [place] % (Auto) (2-11) % Eos % (Auto) (0-4) % Baso % (Auto) (0-2) % Lymph # (Auto) (1.2-4.9) X10*3/uL [place] # (Auto) (0.1-1.2) X10*3/uL Eos # (Auto) (0.0-0.4) X10*3/uL Baso # (Auto) (0.0-0.2) X10*3/uL Abs Immat Gran (auto) (0.00-0.03) X10*3/uL Absolute Neuts (auto) (2.0-8.3) X10*3/uL Absolute Nucleated RBC (0.0-0.012) X10*3/uL Nucleated RBC % (auto) (0.0-0.2) /100WBC Sodium (135-145) mmol/L Potassium (3.3-5.1) mmol/L Chloride (96-108) mmol/L Carbon Dioxide (22-29) mmol/L Anion Gap (12-20) BUN (9-16) mg/dL Creatinine (0.5-1.4) mg/dL Estim Creat Clear Calc Estimated GFR Random Glucose (60-115) mg/dL Calcium (8.4-10.2) mg/dL Total Bilirubin (0.0-1.0) mg/dL Direct Bilirubin (0.0-0.5) mg/dL AST (5-37) U/L ALT (0-40) U/L Alkaline Phosphatase (39-117) U/L Ammonia (13-55) umol/L Total Protein (6.5-8.0) g/dL Albumin (3.5-5.0) g/dL Lipase (8-78) U/L Salicylates (15-30) mg/dL Acetaminophen (<30) mcg/mL Ethyl Alcohol 277 mg/dL Acetone, Qual (Negative) Critical Care Time Critical Care Time Critical Care Time: Yes Total Critical Care Time: 35 Attestation: Patient acute alcohol withdrawal tachycardic and hypertensive patient had to be r re-evaluated multiple times in the emergency department. Patient's vitals improved I would have to consult GI due to his acute hepatitis as well. Discharge Plan Discharge Clinical Impression: Alcohol abuse with withdrawal, Acute hepatitis, Acute alcoholic hepatitis, Abdominal pain, Acute dehydration Patient Disposition: Admitted As Inpatient Prescriptions: No Action gemfibrozil 600 mg tablet 600 mg PO BID Qty: 180 RF: 11 labetalol 300 mg tablet 300 mg PO BID Qty: 180 RF: 3 multivitamin Tablet 1 tab PO DAILY RF: 0 omega-3 fatty acids Capsule 1,000 mg PO DAILY RF: 0 quetiapine [Seroquel] 400 mg Tablet 400 mg PO DAILY RF: 0 nystatin 100,000 unit/mL Suspension 400,000 unit PO QID 14 Days Qty: 224 RF: 0 metformin 500 mg tablet 500 mg PO BID Qty: 60 RF: 0 omeprazole 20 mg capsule,delayed release(DR/EC) 20 mg PO DAILY RF: 0
[2021-01-09 16:54] LABS: MANUAL DIFF FLAG NO
[2021-01-09] MEDS: LORazepam 2 MG/ML VIAL IV (16:56)
[2021-01-09] MEDS: Famotidine/PF 20 MG/2 ML VIAL IVPUSH (16:56)
[2021-01-09 16:57] LABS: Basophils Absolute Auto 0.1 X10*3/uL (0.0-0.2); Basophils Percent Auto 0.6 % (0-2); Eosinophils Percent Auto 0.1 % (0-4); Hematocrit 51.4 % (42-52); Hemoglobin 18.9 g/dl (14.0-18.0); Imm Gran Abs Auto 0.06 X10*3/uL (0.00-0.03); Imm Gran Pct Auto 0.4 % (0.0-0.4); Lymphocytes Absolute Auto 2.1 X10*3/uL (1.2-4.9); Lymphocytes Percent Auto 14.1 % (20-40); Mean Corpuscular HGB Conc 36.8 g/dl (31.0-36.0); Mean Corpuscular Hemoglobin 32.9 pg (27.0-33.0); Mean Corpuscular Volume 89.4 fL (80-98); Monocytes Absolute Auto 0.7 X10*3/uL (0.1-1.2); Monocytes Percent Auto 4.8 % (2-11); Neutrophils Absolute Auto 12.1 X10*3/uL (2.0-8.3); Platelet Count 265 X10*3/uL (160-400); Red Blood Count 5.75 X10*6/uL (4.60-5.80); Red Cell Distribution Width 12.8 % (11.0-16.0); White Blood Count 15.1 X10*3/uL (4.8-10.8)
[2021-01-09] MEDS: 0.9 % Sodium Chloride 500 ML 999 ML IV ×2 (16:57→17:24)
[2021-01-09 17:16] LABS: Ammonia 56 umol/L (13-55)
[2021-01-09 17:21] LABS: Ethanol 277 mg/dL
[2021-01-09 17:26] VITALS: BP 139/99; PULSE 111; RESP 22; O2SAT 94
[2021-01-09 17:33] LABS: Alanine Aminotransferase 555 U/L (0-40); Albumin Level 4.6 g/dL (3.5-5.0); Alkaline Phosphatase 78 U/L (39-117); Anion Gap 31 (12-20); Aspartate Amino Transferase 955 U/L (5-37); Bilirubin Direct 0.5 mg/dL (0.0-0.5); Bilirubin Total 1.1 mg/dL (0.0-1.0); Blood Urea Nitrogen 16 mg/dL (9-16); Calcium 8.3 mg/dL (8.4-10.2); Carbon Dioxide 13 mmol/L (22-29); Chloride 90 mmol/L (96-108); Creatinine Clr Calc Pharmacy 82.3; Estimated Glomerular Filt Rate > 60; Glucose Random 245 mg/dL (60-115); Lipase 81 U/L (8-78); Potassium 3.7 mmol/L (3.3-5.1); Salicylate < 5.0 mg/dL (15-30); Sodium 130 mmol/L (135-145); Total Protein 7.6 g/dL (6.5-8.0)
[2021-01-09 17:44] LABS: Acetaminophen LAB < 1 mcg/mL (<30)
[2021-01-09] MEDS: LORazepam 2 MG/ML VIAL IVPUSH (18:30)
[2021-01-09] MEDS: iohexoL 350 MG/ML 100 ML INFUS..BTL IV (18:31)
[2021-01-09 18:34] VITALS: BP 137/86; PULSE 113; RESP 24; O2SAT 96
[2021-01-09 18:46] LABS: Acetone, serum QL Negative (Negative)
--- NOTE | 2021-01-09 19:36 | P.HPHOSP_ITS ---
History of Present Illness Date of Service: 01/09/21 55-year-old male with a history of chronic alcohol dependency, history alcoholic hepatitis, diabetes controlled with metformin, hypertension that is controlled. He presents to the emergency room today because of abdominal pain that has been acute in onset over the last 24 hours, he describes by upper quadrant area pain that is see, and is associated with episode of vomiting. He has been drinking up until this, in fact he has been drinking 12 pack of beer daily but today he also drank a pint of hard liquor. In the ED he was tachrdic, tremulous sweaty. CT of abdomen shows fatty otherwise unremarkable. Lab work showed elevated LFTs, lipase, ammonia, and highly concentrated hemoglobin indicating dehydration. He has low bicarb which could be related to alcoholic ketoacidosis, normal ketone level. Management in the emergency room has included hydration, Ativan, Pepcid and phenobarbital protocol is initiated for alcohol withdrawal. At the time that I saw the patient he was feeling much more comfortable. He relates that he is ready for detox Review of Systems Review of Systems: Gen: no fever Resp: no sob, no cough CV: no chest, no LUO, no leg edema GI: + n/v, n+ abd pain Neuro: No confusion Psyc no hallucination. Yes all other systems are reviewed and are negative [facility] Medical History Alcohol dependence Anxiety Benign essential hypertension Bipolar depression Diabetes mellitus GERD without esophagitis History of alcoholic hepatitis HTN (hypertension) Mixed hyperlipidemia Obesity (BMI 30-39.9) Other bursal cyst, left ankle and foot Other cyst of bone, left hand Family History Father Advanced cirrhosis of liver Alcoholic cirrhosis Mother Dementia Pertinent family history: . Surgical History No pertinent past surgical history Social History Household Members: Other Housing: House Do you presently have visiting nurse or other home services: No Alcohol intake: current Alcohol intake frequency: 3 or more drinks per day Alcohol type: beer and hard liquor Patient Tobacco Use Status: Current everyday Tobacco user Tobacco use type: Cigarette e-Cigarette/Vaping Use: Currently Using Use of substances other than those prescribed or required for medical reasons: Unknown Advance Directives: No Advance Directives Information Provided: Yes service: No Current occupational status: employed Meds Allergies Allergy/AdvReac Type Severity Reaction Status Date / Time No Known Allergies Allergy Verified 02/10/20 09:42 [No Known Allergies*] Active Medications: Current Medications Lorazepam (Lorazepam 1 Mg Tablet) 1 mg PO Q4H MAILE; Taper Stop: 01/13/21 19:59 Lorazepam (Lorazepam 1 Mg Tablet) 1 mg PO Q4H PRN PRN Reason: Breakthrough alcohol withdrawa Stop: 01/13/21 17:53 Home Medications Medication Instructions Recorded Confirmed Last Taken Type omeprazole 20 mg capsule,delayed 20 mg PO DAILY@0630 02/10/20 01/09/21 10/29/20 09:00 History release multivitamin 1 tab PO DAILY 10/30/20 01/09/21 10/29/20 09:00 History omega-3 fatty acids 1,000 mg PO DAILY 10/30/20 01/09/21 10/29/20 09:00 History quetiapine 400 mg tablet (Seroquel) 400 mg PO DAILY 10/30/20 01/09/21 10/29/20 09:00 History Physical Exam Vital Signs and Narrative: Vital Signs: Last Vital Signs Temp 99.1 F 01/09/21 16:34 Pulse 113 H 01/09/21 18:34 Resp 24 H 01/09/21 18:34 BP 137/86 01/09/21 18:34 Pulse Ox 96 01/09/21 18:34 Body Mass Index 28.7 Constitutional Awake and Alert, No apparent distress HEENT no sclera icteris Neck Supple, No lymphadenopathy Cardiovascular RRR, No M/R/G, S1 S2, No S3 S4, No pedal edema Respiratory Lungs clear, No respiratory distress Gastrointestinal Non tender, Non-distended Skin No rash Neurological Alert & oriented x3 Psychological Appropriate affect Results Labs CBC and Chem 7: 01/09/21 16:50 01/09/21 16:50 Labs: Laboratory Results - last 24 hr 01/09/21 01/09/21 01/09/21 16:50 16:50 16:50 MCV 89.4 MCH 32.9 MCHC 36.8 H RDW 12.8 Plt Count 265 D MPV 9.0 L Immature Gran % (Auto) 0.4 Neut % (Auto) 80.0 H Lymph % (Auto) 14.1 L [place] % (Auto) 4.8 Eos % (Auto) 0.1 Baso % (Auto) 0.6 Lymph # (Auto) 2.1 [place] # (Auto) 0.7 Eos # (Auto) 0.0 Baso # (Auto) 0.1 Abs Immat Gran (auto) 0.06 H Absolute Neuts (auto) 12.1 H Absolute Nucleated RBC 0.000 Nucleated RBC % (auto) 0.0 Anion Gap 31 H Estim Creat Clear Calc 82.3 Estimated GFR > 60 Random Glucose 245 H D Calcium 8.3 L D Total Bilirubin 1.1 H Direct Bilirubin 0.5 AST 955 H ALT 555 H Alkaline Phosphatase 78 D Ammonia 56 H Total Protein 7.6 D Albumin 4.6 D Lipase 81 H Salicylates < 5.0 L Acetaminophen < 1 Ethyl Alcohol Acetone, Qual Negative 01/09/21 16:50 MCV MCH MCHC RDW Plt Count MPV Immature Gran % (Auto) Neut % (Auto) Lymph % (Auto) [place] % (Auto) Eos % (Auto) Baso % (Auto) Lymph # (Auto) [place] # (Auto) Eos # (Auto) Baso # (Auto) Abs Immat Gran (auto) Absolute Neuts (auto) Absolute Nucleated RBC Nucleated RBC % (auto) Anion Gap Estim Creat Clear Calc Estimated GFR Random Glucose Calcium Total Bilirubin Direct Bilirubin AST ALT Alkaline Phosphatase Ammonia Total Protein Albumin Lipase Salicylates Acetaminophen Ethyl Alcohol 277 Acetone, Qual Imaging Radiologist's Impressions: Impressions Abdomen/Pelvis CT 01/09/21 17:51 IMPRESSION: No acute abnormality CT scan abdomen pelvis. Medically. Hepatic steatosis. Assessment and Plan (1) Alcohol withdrawal: Status: Acute (2) Alcoholic ketoacidosis: Status: Acute (3) Acute alcoholic hepatitis: Status: Acute 55-year-old male with alcohol dependency, diabetes, history of alcoholic torres creatitis, history of alcoholic hepatitis here with abdominal pain nausea vomiting and found to be in acute alcoholic hepatitis, acute pancreatitis, and alcohol withdrawal. Alcohol withdrawal--Starting Phenobarbital protocol, Folic and thiamine replacement. Will need CARE eval when ready for DC to help get into Detox\ Acute alcoholic hepatitis--Obviously shouls stop driking, hydrate, and repeat LFTs, GI consult with Dr. Fernandez Acute pancreatitis--mild, hydrate, morphine PRN for pain, repeat lipase and stay away from alcohol Alcoholic ketoacidosis--Bicab level should improve with hydration alone. Hyopnatremia--likely from beer potomania, NS and repeat level tomorro Diabetes--on Metformin at hold, hold and give SSI HTN-Controlled, no on meds Polycythemia--likly from hemocontration form dehydration, expect hemoglobin level to come down with hydration P leukocytosis--likely reactive no evidence of infection will repeat level in the morning. DVT prophylaxis--Lovenox Full CODE Plan discussed with the patient and his girlfriend at the bedside. Quality Stroke Does the patient have a stroke diagnosis?: No VTE Prior VTE?: No VTE Risk Level:: Medical - moderate - high VTE Device Contraindication: Treatment Not Indicated VTE Drug Contraindication: N/A - Med Ordered
[2021-01-09] MEDS: 0.9 % Sodium Chloride 1,000 ML 999 ML IVCONT (19:58)
[2021-01-09] MEDS: PHENobarbitaL sodium 130 MG/ML VIAL 160 MG IM (20:10)
[2021-01-09] MEDS: Insulin Lispro 100 UNIT/ML 3 ML VIAL SUBCUT (20:10)
[2021-01-09 20:12] LABS: Glucose, Whole Blood 232 mg/dL (60-115)
--- NOTE | 2021-01-09 20:34 | PHA.MEDREC ---
Pharmacy Consult ? Medication Reconciliation Pharmacy has completed the medication reconciliation. Spoke with patient in ED. Patient has not taken his medications in a significant amount of time. In the process of swithing PCP's.
[2021-01-09 21:13] LABS: INTERNATIONAL NORM RATIO 1.2 (0.9-1.1); Prothrombin Time 13.2 SEC (9.9-13.0)
[2021-01-09 21:16] LABS: Partial Thromboplastin Time 31.6 SEC (24.1-38.0)
[2021-01-09 21:31] VITALS: BP 128/90; PULSE 119; RESP 20; TEMP 37.2; O2SAT 96
[2021-01-09] MEDS: 0.9 % Sodium Chloride 1,000 ML 100 ML IVCONT (21:53)
[2021-01-09 23:40] VITALS: BP 131/88; PULSE 116; RESP 28; TEMP 37.1; O2SAT 97
[2021-01-10] VITALS (9 sets, daily range): BP systolic 110–152; BP diastolic 68–103; PULSE 74–119; RESP 14–20; TEMP 36–37.2; O2SAT 94–96
[2021-01-10] MEDS: PHENobarbitaL sodium 130 MG/ML VIAL 120 MG IM ×2 (00:04→04:50)
[2021-01-10] MEDS: Zolpidem Tartrate 5 MG TABLET PO ×2 (01:08→21:54)
[2021-01-10] MEDS: Magnesium Hydrox/Alum Hydrox 30 ML ORAL.SUSP PO (01:09)
--- NOTE | 2021-01-10 02:57 | PC.NURSE ---
pt sleeping with no sign of distress. Collected urine and sent .
[2021-01-10 03:40] LABS: Amphetamine Screen Urine Not Detected (Not Detect); Barbiturates, Urine POSITIVE (Not Detect); Benzodiazepines Screen Urine Not Detected (Not Detect); Cannabinoid Screen Urine POSITIVE (Not Detect); Cocaine Screen Urine Not Detected (Not Detect); Fentanyl, urine Not Detected (Not Detect); Opiate Screen Urine Not Detected (Not Detect); Phencyclidine Screen Urine Not Detected (Not Detect)
--- NOTE | 2021-01-10 03:58 | PC.NURSE ---
pt is sleeping at this time. no sign of distress.
[2021-01-10 04:16] LABS: COVID-19 Test Negative (Negative); IDNOW Serial# 9DD0AD1C
--- NOTE | 2021-01-10 04:55 | PC.NURSE ---
Notified Hospitalist in regards to patient complaining of abd pain. provider will assess and determine new orders.
[2021-01-10] MEDS: Morphine Sulfate 4 MG/ML CARTRIDGE 2 MG IVPUSH ×4 (05:51→21:53)
[2021-01-10] MEDS: 0.9 % Sodium Chloride Flush 3 ML SYRINGE IVFLUSH ×3 (05:52→21:55)
--- NOTE | 2021-01-10 06:05 | PC.NURSE ---
medicated per Mar.pt report improvement of detox s&s.
[2021-01-10] MEDS: Omeprazole 20 MG CAPSULE.DR PO (06:25)
[2021-01-10 07:38] LABS: Glucose, Whole Blood 256 mg/dL (60-115)
[2021-01-10] MEDS: 0.9 % Sodium Chloride 1,000 ML 100 ML IVCONT (07:40)
[2021-01-10] MEDS: Insulin Lispro 100 UNIT/ML 3 ML VIAL SUBCUT ×4 (07:40→21:54)
[2021-01-10 07:44] LABS: Mean Corpuscular Hemoglobin 33.3 pg (27.0-33.0); PLT CLUMP 1; Red Cell Distribution Width 12.4 % (11.0-16.0)
[2021-01-10 07:46] LABS: Hematocrit 39.2 % (42-52); Hemoglobin 14.5 g/dl (14.0-18.0); Mean Corpuscular Volume 89.9 fL (80-98); Mean Platelet Volume 8.9 fL (9.4-12.4); Platelet Count 151 X10*3/uL (160-400); Red Blood Count 4.36 X10*6/uL (4.60-5.80); White Blood Count 6.1 X10*3/uL (4.8-10.8)
[2021-01-10 07:56] LABS: Lipase 104 U/L (8-78)
[2021-01-10 08:01] LABS: Alanine Aminotransferase 373 U/L (0-40); Albumin Level 3.6 g/dL (3.5-5.0); Alkaline Phosphatase 62 U/L (39-117); Anion Gap 16 (12-20); Aspartate Amino Transferase 521 U/L (5-37); Bilirubin Direct 0.8 mg/dL (0.0-0.5); Blood Urea Nitrogen 10 mg/dL (9-16); Calcium 7.4 mg/dL (8.4-10.2); Carbon Dioxide 23 mmol/L (22-29); Chloride 99 mmol/L (96-108); Creatinine Clr Calc Pharmacy 95.7; Estimated Glomerular Filt Rate > 60; Glucose Random 273 mg/dL (60-115); Potassium 3.8 mmol/L (3.3-5.1); Sodium 134 mmol/L (135-145); Total Protein 5.8 g/dL (6.5-8.0)
[2021-01-10] MEDS: QUEtiapine Fumarate 400 MG TABLET PO (08:45)
[2021-01-10] MEDS: gemfibroziL 600 MG TABLET PO ×2 (08:45→21:54)
[2021-01-10] MEDS: metFORMIN HCl 500 MG TABLET PO ×2 (08:45→21:54)
[2021-01-10] MEDS: Multivitamin TABLET 1 TAB PO (08:45)
[2021-01-10] MEDS: Folic Acid 1 MG TABLET PO (08:46)
[2021-01-10] MEDS: Thiamine HCL 100 MG TABLET PO (08:46)
[2021-01-10] MEDS: PHENobarbitaL 15 MG TABLET 45 MG PO ×2 (08:46→21:53)
[2021-01-10] MEDS: Labetalol HCL 100 MG TABLET 300 MG PO ×2 (08:46→21:54)
--- NOTE | 2021-01-10 09:22 | HO.PM.IMPN ---
Subjective Subjective Date of Service: 01/10/21 Interval History: cc: abd pain, vomitting interval: continues to have pain Cardiovascular Cardiovascular: Reports no additional cardiovascular complaints Respiratory Respiratory: Reports no additional respiratory complaints Physical Exam Vital Signs: Vital Signs: Last Vital Signs Temp 98.9 F 01/10/21 03:06 Pulse 100 01/10/21 08:46 Resp 20 01/10/21 03:06 BP 152/103 H 01/10/21 08:46 Pulse Ox 94 01/10/21 03:06 Body Mass Index 28.7 Constitutional Awake and Alert, diaphoretic HEENT no sclera icteris Neck Supple, No lymphadenopathy Cardiovascular RRR, No M/R/G, S1 S2, No S3 S4, No pedal edema Respiratory Lungs clear, No respiratory distress Gastrointestinal Non tender, Non-distended Skin No rash Neurological Alert & oriented x3 Psychological Appropriate affect Objective Data Active Medications Al Hydroxide/Mg Hydroxide (Magnesium Hydrox/Alum Hydrox 30 Ml Oral.Susp) 30 ml PO Q4H PRN PRN Reason: Heartburn/Nausea Folic Acid (Folic Acid 1 Mg Tablet) 1 mg PO DAILY [facility] Stop: 01/12/21 09:01 Last Admin: 01/10/21 08:46 Dose: 1 mg Documented by: TONYA Gemfibrozil (Gemfibrozil 600 Mg Tablet) 600 mg PO BID [facility] Last Admin: 01/10/21 08:45 Dose: 600 mg Documented by: TONYA Sodium Chloride (Ns) 1,000 mls @ 100 mls/hr IVCONT .Q10H [facility] Stop: 01/10/21 17:29 Last Admin: 01/10/21 07:40 Dose: 100 mls/hr Documented by: TONYA Insulin Human Lispro (Insulin Lispro 100 Unit/Ml 3 Ml Vial) 0 unit SUBCUT QIDACHS [facility]; Protocol Last Admin: 01/10/21 07:40 Dose: 6 unit Documented by: TONYA Labetalol HCl (Labetalol Hcl 100 Mg Tablet) 300 mg PO BID [facility] Last Admin: 01/10/21 08:46 Dose: 300 mg Documented by: TONYA Medication (No Benzodiazepines) 1 each MISCELLANE DAILY [facility] Melatonin (Melatonin 3 Mg Tablet) 6 mg PO BEDTIME PRN PRN Reason: Insomnia Metformin HCl (Metformin Hcl 500 Mg Tablet) 500 mg PO BID [facility] Last Admin: 01/10/21 08:45 Dose: 500 mg Documented by: TONYA Morphine Sulfate (Morphine Sulfate 4 Mg/Ml Cartridge) 2 mg IVPUSH Q4H PRN; Protocol PRN Reason: Pain, Severe (Pain Scale 7-10) Last Admin: 01/10/21 05:51 Dose: 2 mg Documented by: NELI Multivitamins/Vitamin C (Multivitamin Tablet) 1 tab PO DAILY [facility] Last Admin: 01/10/21 08:45 Dose: 1 tab Documented by: TONYA Omeprazole (Omeprazole 20 Mg Capsule.Dr) 20 mg PO DAILY@0630 [facility] Last Admin: 01/10/21 06:25 Dose: 20 mg Documented by: HILARIO Ondansetron HCl (Ondansetron Hcl 4 Mg/2 Ml Vial) 4 mg IVPUSH Q8H PRN PRN Reason: Nausea and Vomiting Pharmacy Consult (Consult Rx Perform Med Rec) 1 each MISCELLANE ONCE PRN PRN Reason: Consult order Phenobarbital (Phenobarbital 15 Mg Tablet) 45 mg PO BID [facility] Stop: 01/11/21 21:01 Last Admin: 01/10/21 08:46 Dose: 45 mg Documented by: TONYA Phenobarbital (Phenobarbital 30 Mg Tablet) 30 mg PO BID [facility] Stop: 01/13/21 21:01 Phenobarbital (Phenobarbital 15 Mg Tablet) 15 mg PO DAILY [facility] Stop: 01/15/21 09:01 Quetiapine Fumarate (Quetiapine Fumarate 400 Mg Tablet) 400 mg PO DAILY [facility] Last Admin: 01/10/21 08:45 Dose: 400 mg Documented by: TONYA Sodium Chloride (0.9 % Sodium Chloride Flush 3 Ml Syringe) 3 ml IVFLUSH QSHIFT [facility] Last Admin: 01/10/21 07:41 Dose: Not Given Documented by: TONYA Non-Admin Reason: IV Running Thiamine HCl (Thiamine Hcl 100 Mg Tablet) 100 mg PO DAILY [facility] Stop: 01/12/21 09:01 Last Admin: 01/10/21 08:46 Dose: 100 mg Documented by: TONYA Zolpidem Tartrate (Zolpidem Tartrate 5 Mg Tablet) 5 mg PO BEDTIME PRN PRN Reason: Insomnia Last Admin: 01/10/21 01:08 Dose: 5 mg Documented by: NELI Labs CBC & Chem 7: 01/10/21 07:28 01/10/21 07:28 Labs: Laboratory Results - last 24 hr 01/09/21 01/09/21 01/09/21 16:50 16:50 16:50 MCV 89.4 MCH 32.9 MCHC 36.8 H RDW 12.8 Plt Count 265 D MPV 9.0 L Immature Gran % (Auto) 0.4 Neut % (Auto) 80.0 H Lymph % (Auto) 14.1 L [place] % (Auto) 4.8 Eos % (Auto) 0.1 Baso % (Auto) 0.6 Lymph # (Auto) 2.1 [place] # (Auto) 0.7 Eos # (Auto) 0.0 Baso # (Auto) 0.1 Abs Immat Gran (auto) 0.06 H Absolute Neuts (auto) 12.1 H Absolute Nucleated RBC 0.000 Nucleated RBC % (auto) 0.0 PT INR APTT Anion Gap 31 H Estim Creat Clear Calc 82.3 Estimated GFR > 60 POC Glucose Random Glucose 245 H D Calcium 8.3 L D Total Bilirubin 1.1 H Direct Bilirubin 0.5 AST 955 H ALT 555 H Alkaline Phosphatase 78 D Ammonia 56 H Total Protein 7.6 D Albumin 4.6 D Lipase 81 H Salicylates < 5.0 L Urine Opiates Screen Urine Fentanyl Screen Acetaminophen < 1 Ur Barbiturates Screen Ur Phencyclidine Scrn Ur Amphetamines Screen U Benzodiazepines Scrn Urine Cocaine Screen U Marijuana (THC) Screen Ethyl Alcohol Acetone, Qual Negative COVID-19 ([facility]) COVID-19 Clin Com 01/09/21 01/09/21 01/09/21 16:50 20:08 21:00 MCV MCH MCHC RDW Plt Count MPV Immature Gran % (Auto) Neut % (Auto) Lymph % (Auto) [place] % (Auto) Eos % (Auto) Baso % (Auto) Lymph # (Auto) [place] # (Auto) Eos # (Auto) Baso # (Auto) Abs Immat Gran (auto) Absolute Neuts (auto) Absolute Nucleated RBC Nucleated RBC % (auto) PT 13.2 H INR 1.2 H APTT 31.6 Anion Gap Estim Creat Clear Calc Estimated GFR POC Glucose 232 H Random Glucose Calcium Total Bilirubin Direct Bilirubin AST ALT Alkaline Phosphatase Ammonia Total Protein Albumin Lipase Salicylates Urine Opiates Screen Urine Fentanyl Screen Acetaminophen Ur Barbiturates Screen Ur Phencyclidine Scrn Ur Amphetamines Screen U Benzodiazepines Scrn Urine Cocaine Screen U Marijuana (THC) Screen Ethyl Alcohol 277 Acetone, Qual COVID-19 ([facility]) COVID-19 [facility] [employer] Com 01/10/21 01/10/21 01/10/21 03:05 03:57 07:26 MCV MCH MCHC RDW Plt Count MPV Immature Gran % (Auto) Neut % (Auto) Lymph % (Auto) [place] % (Auto) Eos % (Auto) Baso % (Auto) Lymph # (Auto) [place] # (Auto) Eos # (Auto) Baso # (Auto) Abs Immat Gran (auto) Absolute Neuts (auto) Absolute Nucleated RBC Nucleated RBC % (auto) PT INR APTT Anion Gap Estim Creat Clear Calc Estimated GFR POC Glucose 256 H Random Glucose Calcium Total Bilirubin Direct Bilirubin AST ALT Alkaline Phosphatase Ammonia Total Protein Albumin Lipase Salicylates Urine Opiates Screen Not Detected Urine Fentanyl Screen Not Detected Acetaminophen Ur Barbiturates Screen POSITIVE H Ur Phencyclidine Scrn Not Detected Ur Amphetamines Screen Not Detected U Benzodiazepines Scrn Not Detected Urine Cocaine Screen Not Detected U Marijuana (THC) Screen POSITIVE H Ethyl Alcohol Acetone, Qual COVID-19 ([facility]) Negative COVID-19 [employer] See Note 01/10/21 01/10/21 01/10/21 07:28 07:28 07:28 MCV 89.9 MCH 33.3 H MCHC 37.0 H RDW 12.4 Plt Count 151 L D MPV 8.9 L Immature Gran % (Auto) Neut % (Auto) Lymph % (Auto) [place] % (Auto) Eos % (Auto) Baso % (Auto) Lymph # (Auto) [place] # (Auto) Eos # (Auto) Baso # (Auto) Abs Immat Gran (auto) Absolute Neuts (auto) Absolute Nucleated RBC 0.000 Nucleated RBC % (auto) 0.0 PT INR APTT Anion Gap 16 Estim Creat Clear Calc 95.7 Estimated GFR > 60 POC Glucose Random Glucose 273 H Calcium 7.4 L D Total Bilirubin 2.0 H Direct Bilirubin 0.8 H AST 521 H ALT 373 H Alkaline Phosphatase 62 D Ammonia Total Protein 5.8 L D Albumin 3.6 D Lipase 104 H Salicylates Urine Opiates Screen Urine Fentanyl Screen Acetaminophen Ur Barbiturates Screen Ur Phencyclidine Scrn Ur Amphetamines Screen U Benzodiazepines Scrn Urine Cocaine Screen U Marijuana (THC) Screen Ethyl Alcohol Acetone, Qual COVID-19 ([facility]) COVID-19 Clin Com Assessment and Plan (1) Alcohol withdrawal: Status: Acute (2) Alcoholic ketoacidosis: Status: Acute (3) Acute alcoholic hepatitis: Status: Acute Assessment and Plan: 55M presnted with abdominal pain alcohold dependence complicated by withdrawal, acute alcoholic hepatitis and mild pancreatitis, and gastritis continue phenobarbital and ciwa monitoring, monitor LFTS, follow up GI currently on full liquids, continue iv morphine for pain, advance as tolerated leukocytosis, metabolic acidosis, and hyponatremia resolved continue ppi, iv fluids DM metformin, insulin htn labetolol hld lopid dvt prophylaxis - lovenox Quality Stroke Does the patient have a stroke diagnosis?: No VTE Prior VTE?: No VTE Risk Level:: Medical - moderate - high VTE Device Contraindication: Treatment Not Indicated VTE Drug Contraindication: N/A - Med Ordered
[2021-01-10] MEDS: Enoxaparin Sodium 40 MG/0.4 ML SYRINGE SUBCUT (10:21)
[2021-01-10 11:24] LABS: Glucose, Whole Blood 236 mg/dL (60-115)
--- NOTE | 2021-01-10 14:32 | MHC.CM.PN ---
PT LIVES WITH HIS GF AND IS INDEPENDENT WITH ADLS PT HAS NO DME AND NO IN HOME SERVICES PT HAS A HCP ON FILE AND HIS PCP IS JENNIFER JOLLEY CURRENT DC PLAN IS HOME WITH RESOURCES FROM [employer] OFFICER
--- NOTE | 2021-01-10 15:13 | PC.NURSE ---
call for report- states to make contact with home energy consultant supervisor
--- NOTE | 2021-01-10 15:18 | PC.NURSE ---
rn to call back for report
--- NOTE | 2021-01-10 17:40 | PM.EVENT ---
Event Note Date of Service: 01/10/21 Event Note: GI Consult-Hx via patient, girlfriend, and EMR. Full note dictated. Imp: 55 yo male with chronic EtOH abuse and recent binging presenting with RUQ pain, N/V, bloody emesis at home, and elevated LFT's. He denies any drug use besides marijuana and denies any OTC meds, including NSAIDs or Acetaminophen. He only takes omeprazole currently. He has had no vomiting here and denies melena. He did have an EGD with Dr. Simmons in 2018 describing gastritis and esophagitis, but no varices. His liver enzymes are in the usual pattern of EtOH-induced hepatitis, although higher than typically seen. His PT/INR and TBili are OK. The CT is negative except for hepatomegaly. Overall this appears c/w EtOH-induced liver disease and RUQ pain due to that. I don't think he needs steroids for the EtOH-hepatitis at this time. Given the findings on his previous EGD, the clinical history, and no signs of further bleeding, I don't think he needs an EGD at this time. Rec: Supportive care, PPI therapy, F/U labs, check Hepatitis serologies, EtOH rehab. 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 D/W them in detail. They were comfortable with this plan. thanks.
[2021-01-10 17:47] LABS: Glucose, Whole Blood 239 mg/dL (60-115)
[2021-01-10 21:36] LABS: Glucose, Whole Blood 248 mg/dL (60-115)
[2021-01-11] VITALS (8 sets, daily range): BP systolic 111–160; BP diastolic 69–97; PULSE 67–80; RESP 15–20; TEMP 36.4–36.8; O2SAT 96–98
[2021-01-11] MEDS: ondansetron HCL 4 MG/2 ML VIAL IVPUSH (04:58)
[2021-01-11] MEDS: Morphine Sulfate 4 MG/ML CARTRIDGE 2 MG IVPUSH ×5 (04:58→21:52)
[2021-01-11] MEDS: Omeprazole 20 MG CAPSULE.DR PO (05:06)
[2021-01-11 06:37] LABS: Hematocrit 33.9 % (42-52); Hemoglobin 12.3 g/dl (14.0-18.0); Mean Corpuscular HGB Conc 36.3 g/dl (31.0-36.0); Mean Corpuscular Hemoglobin 32.8 pg (27.0-33.0); Mean Corpuscular Volume 90.4 fL (80-98); Mean Platelet Volume 9.2 fL (9.4-12.4); Red Blood Count 3.75 X10*6/uL (4.60-5.80); Red Cell Distribution Width 12.4 % (11.0-16.0)
[2021-01-11 06:43] LABS: Prothrombin Time 10.8 SEC (9.9-13.0)
[2021-01-11 07:00] LABS: Alanine Aminotransferase 247 U/L (0-40); Albumin Level 3.2 g/dL (3.5-5.0); Alkaline Phosphatase 65 U/L (39-117); Anion Gap 10 (12-20); Aspartate Amino Transferase 309 U/L (5-37); Bilirubin Direct 0.5 mg/dL (0.0-0.5); Bilirubin Total 0.7 mg/dL (0.0-1.0); Blood Urea Nitrogen 7 mg/dL (9-16); Calcium 7.3 mg/dL (8.4-10.2); Carbon Dioxide 27 mmol/L (22-29); Chloride 103 mmol/L (96-108); Creatinine Clr Calc Pharmacy 120.7; Estimated Glomerular Filt Rate > 60; Glucose Fasting 198 mg/dL (60-99); Magnesium 1.8 mg/dL (1.6-2.6); Potassium 3.1 mmol/L (3.3-5.1); Sodium 137 mmol/L (135-145); Total Protein 5.2 g/dL (6.5-8.0)
[2021-01-11 07:12] LABS: Platelet Count 77 X10*3/uL (160-400)
[2021-01-11 08:12] LABS: Glucose, Whole Blood 195 mg/dL (60-115)
[2021-01-11] MEDS: Insulin Lispro 100 UNIT/ML 3 ML VIAL SUBCUT ×4 (08:27→20:28)
[2021-01-11] MEDS: PHENobarbitaL 15 MG TABLET 45 MG PO ×2 (08:27→20:28)
[2021-01-11] MEDS: gemfibroziL 600 MG TABLET PO ×2 (08:28→20:28)
[2021-01-11] MEDS: Labetalol HCL 100 MG TABLET 300 MG PO ×2 (08:28→20:27)
[2021-01-11] MEDS: Multivitamin TABLET 1 TAB PO (08:28)
[2021-01-11] MEDS: QUEtiapine Fumarate 400 MG TABLET PO (08:28)
[2021-01-11] MEDS: Thiamine HCL 100 MG TABLET PO (08:29)
[2021-01-11] MEDS: Enoxaparin Sodium 40 MG/0.4 ML SYRINGE SUBCUT (08:29)
[2021-01-11] MEDS: Folic Acid 1 MG TABLET PO (08:29)
[2021-01-11] MEDS: metFORMIN HCl 500 MG TABLET PO ×2 (08:29→20:28)
[2021-01-11] MEDS: 0.9 % Sodium Chloride Flush 3 ML SYRINGE IVFLUSH ×3 (08:30→20:28)
[2021-01-11] MEDS: Potassium Chloride ER 20 MEQ TAB.ER.PRT 40 MEQ PO (09:26)
--- NOTE | 2021-01-11 10:48 | HO.PM.IMPN ---
Subjective Subjective Date of Service: 01/11/21 Interval History: cc: abdominal pain still shaky, some pain, anxious Cardiovascular Cardiovascular: Reports no additional cardiovascular complaints Respiratory Respiratory: Reports no additional respiratory complaints Physical Exam Vital Signs: Vital Signs: Last Vital Signs Temp 97.8 F 01/11/21 08:00 Pulse 80 01/11/21 08:28 Resp 18 01/11/21 08:00 BP 142/97 H 01/11/21 08:28 Pulse Ox 97 01/11/21 08:00 Body Mass Index 28.7 Constitutional Awake and Alert, diaphoretic HEENT no sclera icteris Neck Supple, No lymphadenopathy Cardiovascular RRR, No M/R/G, S1 S2, No S3 S4, No pedal edema Respiratory Lungs clear, No respiratory distress Gastrointestinal Non tender, Non-distended Skin No rash Neurological Alert & oriented x3 Psychological Appropriate affect Objective Data Active Medications Al Hydroxide/Mg Hydroxide (Magnesium Hydrox/Alum Hydrox 30 Ml Oral.Susp) 30 ml PO Q4H PRN PRN Reason: Heartburn/Nausea Enoxaparin Sodium (Enoxaparin Sodium 40 Mg/0.4 Ml Syringe) 40 mg SUBCUT Q24H [facility] Last Admin: 01/11/21 08:29 Dose: 40 mg Documented by: NILDA Folic Acid (Folic Acid 1 Mg Tablet) 1 mg PO DAILY [facility] Stop: 01/12/21 09:01 Last Admin: 01/11/21 08:29 Dose: 1 mg Documented by: BROCisco Gemfibrozil (Gemfibrozil 600 Mg Tablet) 600 mg PO BID [facility] Last Admin: 01/11/21 08:28 Dose: 600 mg Documented by: NILDA Insulin Human Lispro (Insulin Lispro 100 Unit/Ml 3 Ml Vial) 0 unit SUBCUT QIDACHS [facility]; Protocol Last Admin: 01/11/21 08:27 Dose: 2 unit Documented by: NILDA Labetalol HCl (Labetalol Hcl 100 Mg Tablet) 300 mg PO BID [facility] Last Admin: 01/11/21 08:28 Dose: 300 mg Documented by: NILDA Medication (No Benzodiazepines) 1 each MISCELLANE DAILY [facility] Melatonin (Melatonin 3 Mg Tablet) 6 mg PO BEDTIME PRN PRN Reason: Insomnia Metformin HCl (Metformin Hcl 500 Mg Tablet) 500 mg PO BID [facility] Last Admin: 01/11/21 08:29 Dose: 500 mg Documented by: NILDA Morphine Sulfate (Morphine Sulfate 4 Mg/Ml Cartridge) 2 mg IVPUSH Q4H PRN; Protocol PRN Reason: Pain, Severe (Pain Scale 7-10) Last Admin: 01/11/21 09:30 Dose: 2 mg Documented by: NILDA Multivitamins/Vitamin C (Multivitamin Tablet) 1 tab PO DAILY [facility] Last Admin: 01/11/21 08:28 Dose: 1 tab Documented by: NILDA Omeprazole (Omeprazole 20 Mg Capsule.Dr) 20 mg PO DAILY@0630 [facility] Last Admin: 01/11/21 05:06 Dose: 20 mg Documented by: CIPRIANO Ondansetron HCl (Ondansetron Hcl 4 Mg/2 Ml Vial) 4 mg IVPUSH Q8H PRN PRN Reason: Nausea and Vomiting Last Admin: 01/11/21 04:58 Dose: 4 mg Documented by: CIPRIANO Pharmacy Consult (Consult Rx Perform Med Rec) 1 each MISCELLANE ONCE PRN PRN Reason: Consult order Phenobarbital (Phenobarbital 15 Mg Tablet) 45 mg PO BID [facility] Stop: 01/11/21 21:01 Last Admin: 01/11/21 08:27 Dose: 45 mg Documented by: NILDA Phenobarbital (Phenobarbital 30 Mg Tablet) 30 mg PO BID [facility] Stop: 01/13/21 21:01 Phenobarbital (Phenobarbital 15 Mg Tablet) 15 mg PO DAILY [facility] Stop: 01/15/21 09:01 Quetiapine Fumarate (Quetiapine Fumarate 400 Mg Tablet) 400 mg PO DAILY [facility] Last Admin: 01/11/21 08:28 Dose: 400 mg Documented by: NILDA Sodium Chloride (0.9 % Sodium Chloride Flush 3 Ml Syringe) 3 ml IVFLUSH QSHIFT [facility] Last Admin: 01/11/21 08:30 Dose: 3 ml Documented by: NILDA Thiamine HCl (Thiamine Hcl 100 Mg Tablet) 100 mg PO DAILY [facility] Stop: 01/12/21 09:01 Last Admin: 01/11/21 08:29 Dose: 100 mg Documented by: NILDA Zolpidem Tartrate (Zolpidem Tartrate 5 Mg Tablet) 5 mg PO BEDTIME PRN PRN Reason: Insomnia Last Admin: 01/10/21 21:54 Dose: 5 mg Documented by: CIPRIANO Labs CBC & Chem 7: 01/11/21 06:18 01/11/21 06:18 Labs: Laboratory Results - last 24 hr 01/10/21 01/10/21 01/10/21 11:20 17:43 21:10 MCV MCH MCHC RDW Plt Count MPV Absolute Nucleated RBC Nucleated RBC % (auto) PT INR Anion Gap Estim Creat Clear Calc Estimated GFR POC Glucose 236 H 239 H 248 H Fasting Glucose Calcium Magnesium Total Bilirubin Direct Bilirubin AST ALT Alkaline Phosphatase Total Protein Albumin 01/11/21 01/11/21 01/11/21 06:18 06:18 06:18 MCV 90.4 MCH 32.8 MCHC 36.3 H RDW 12.4 Plt Count 77 L D MPV 9.2 L Absolute Nucleated RBC 0.000 Nucleated RBC % (auto) 0.0 PT 10.8 INR 1.0 Anion Gap 10 L Estim Creat Clear Calc 120.7 Estimated GFR > 60 POC Glucose Fasting Glucose 198 H Calcium 7.3 L Magnesium 1.8 Total Bilirubin 0.7 Direct Bilirubin 0.5 AST 309 H ALT 247 H Alkaline Phosphatase 65 Total Protein 5.2 L Albumin 3.2 L 01/11/21 08:08 MCV MCH MCHC RDW Plt Count MPV Absolute Nucleated RBC Nucleated RBC % (auto) PT INR Anion Gap Estim Creat Clear Calc Estimated GFR POC Glucose 195 H Fasting Glucose Calcium Magnesium Total Bilirubin Direct Bilirubin AST ALT Alkaline Phosphatase Total Protein Albumin Assessment and Plan (1) Alcohol withdrawal: Status: Acute (2) Alcoholic ketoacidosis: Status: Acute (3) Acute alcoholic hepatitis: Status: Acute Assessment and Plan: 55M presnted with abdominal pain alcohold dependence complicated by withdrawal, acute alcoholic hepatitis and mild pancreatitis, and gastritis continue phenobarbital and ciwa monitoring, monitor LFTS- improving, gi appreciated diet advanced to regular, tolerating leukocytosis, metabolic acidosis, and hyponatremia resolved continue ppi, iv fluids pancytopenia could be dilution or related to ETOH repeat tomorrow hypokalemia replace, monitor DM metformin, insulin htn labetolol hld lopid dvt prophylaxis - lovenox Quality Stroke Does the patient have a stroke diagnosis?: No VTE Prior VTE?: No VTE Risk Level:: Medical - moderate - high VTE Device Contraindication: Treatment Not Indicated VTE Drug Contraindication: N/A - Med Ordered
[2021-01-11 11:25] LABS: Glucose, Whole Blood 218 mg/dL (60-115)
[2021-01-11 16:12] LABS: Glucose, Whole Blood 186 mg/dL (60-115)
[2021-01-11 19:54] LABS: Glucose, Whole Blood 218 mg/dL (60-115)
[2021-01-11] MEDS: Zolpidem Tartrate 5 MG TABLET PO (20:28)
[2021-01-12] VITALS: BP 132/84; PULSE 74; RESP 18; TEMP 36.5; O2SAT 97
[2021-01-12 02:54] VITALS: BP 138/91; PULSE 69; RESP 18; TEMP 36.4; O2SAT 97
[2021-01-12] MEDS: Morphine Sulfate 4 MG/ML CARTRIDGE 2 MG IVPUSH (03:35)
[2021-01-12 04:27] LABS: HBc Num1 0.08 S/CO (0.00-0.79); Hepatitis B Core Antibody Nonreactive (Nonreactive); ~HepC Num1 0.09 S/CO (0.00-0.79); ~Hepatitis B Surface Antibody NONREACTIVE (Nonreactive); ~Hepatitis C Antibody Nonreactive (Nonreactive)
[2021-01-12 04:29] LABS: Hepatitis B Surface Antigen Negative (Negative)
[2021-01-12 06:09] LABS: PLT CLUMP 1; Red Cell Distribution Width 12.3 % (11.0-16.0)
[2021-01-12 06:11] LABS: Hematocrit 36.7 % (42-52); Hemoglobin 13.2 g/dl (14.0-18.0); Mean Corpuscular Hemoglobin 32.8 pg (27.0-33.0); Mean Corpuscular Volume 91.3 fL (80-98); Red Blood Count 4.02 X10*6/uL (4.60-5.80); White Blood Count 2.8 X10*3/uL (4.8-10.8)
[2021-01-12 06:20] LABS: Platelet Count 77 X10*3/uL (160-400)
[2021-01-12] MEDS: Omeprazole 20 MG CAPSULE.DR PO (06:24)
[2021-01-12 06:32] LABS: Alanine Aminotransferase 199 U/L (0-40); Albumin Level 3.6 g/dL (3.5-5.0); Alkaline Phosphatase 71 U/L (39-117); Anion Gap 11 (12-20); Aspartate Amino Transferase 157 U/L (5-37); Bilirubin Direct 0.4 mg/dL (0.0-0.5); Bilirubin Total 0.5 mg/dL (0.0-1.0); Blood Urea Nitrogen 6 mg/dL (9-16); Calcium 8.2 mg/dL (8.4-10.2); Carbon Dioxide 28 mmol/L (22-29); Chloride 105 mmol/L (96-108); Creatinine Clr Calc Pharmacy 115.9; Estimated Glomerular Filt Rate > 60; Glucose Fasting 203 mg/dL (60-99); Potassium 3.9 mmol/L (3.3-5.1); Sodium 140 mmol/L (135-145); Total Protein 5.8 g/dL (6.5-8.0)
[2021-01-12 07:28] VITALS: BP 104/82; PULSE 78; RESP 18; TEMP 36.2; O2SAT 98
[2021-01-12 07:34] LABS: Glucose, Whole Blood 228 mg/dL (60-115)
[2021-01-12] MEDS: gemfibroziL 600 MG TABLET PO (07:41)
[2021-01-12] MEDS: Thiamine HCL 100 MG TABLET PO (07:41)
[2021-01-12] MEDS: Labetalol HCL 100 MG TABLET 300 MG PO (07:41)
[2021-01-12] MEDS: oxyCODONE HCl Immed Release 5 MG TABLET PO ×2 (07:41→10:38)
[2021-01-12] MEDS: Multivitamin TABLET 1 TAB PO (07:41)
[2021-01-12] MEDS: Enoxaparin Sodium 40 MG/0.4 ML SYRINGE SUBCUT (07:42)
[2021-01-12] MEDS: Folic Acid 1 MG TABLET PO (07:42)
[2021-01-12] MEDS: Insulin Lispro 100 UNIT/ML 3 ML VIAL SUBCUT (07:42)
[2021-01-12] MEDS: PHENobarbitaL 30 MG TABLET PO (07:42)
[2021-01-12] MEDS: QUEtiapine Fumarate 400 MG TABLET PO (07:42)
[2021-01-12] MEDS: metFORMIN HCl 500 MG TABLET PO (07:42)
[2021-01-12] MEDS: 0.9 % Sodium Chloride Flush 3 ML SYRINGE IVFLUSH (07:45)
--- NOTE | 2021-01-12 10:14 | P.DS_ITS ---
DS: Providers Provider Date of Service: 01/12/21 Date of admission: 01/09/21 21:10 Primary care physician: Fritz Shelley MD Consults: 01/09/21 21:13 Consult to Gastroenterology Routine Consulting Provider: Colby Fernandez Reason for consultation: acute alcoholic hepatitis DS: Diagnosis Discharge Diagnosis (1) Alcohol withdrawal: Status: Acute (2) Alcoholic ketoacidosis: Status: Acute (3) Acute alcoholic hepatitis: Status: Acute DS: Summary Status at Discharge Cognitive/behavioral status at discharge: Patient was admitted for alcohol dependence complicated by withdrawal, acute alcoholic hepatitis, mild pancreatitis, gastritis, pancytopenia, , leukocytosis, alcoholic ketoacidosis, hyponatremia He was given IV fluids, ppi, and phenobarbital. His hypokalemia was replaced with supplemental potassium and resolved. Patient's withdrawal and acidosis resolved, his transaminitis showing signs of improving. He was noted to have some pancytopenia likely related to alcohol. This should be rechecked in 1 week. Patient is feeling much better and will be discharged home. He is encouraged to not drink any more alcohol. Time Spent with Patient Time attestation: Total time spent providing and/or coordinating discharge services: Discharge coordination time: Greater than 30 minutes Quality: Stroke Does the patient have a stroke diagnosis?: No Physical Exam Vital Signs: Vital Signs: Last Vital Signs Temp 97.2 F 01/12/21 07:28 Pulse 78 01/12/21 07:28 Resp 18 01/12/21 07:28 BP 104/82 01/12/21 07:28 Pulse Ox 98 01/12/21 07:28 Body Mass Index 28.7 General: AO X 3, no acute distress Resp: CTA bilateral, no accessory muscles used CVS: S1,S2,RRR GI: soft, non tender, non distended Neuro: motor grossly intact, alert Psych: appropriate affect, appropriate insight DS: Data Data Completed and Pending Completed studies during hospitalization [Text1]: Procedures Detoxification Services for Substance Abuse Treatment (10/30/20) Labs on day of discharge: Laboratory Results - last 24 hr 01/09/21 01/11/21 01/11/21 16:50 11:22 16:05 WBC RBC Hgb Hct MCV MCH MCHC RDW Plt Count MPV Absolute Nucleated RBC Nucleated RBC % (auto) Sodium Potassium Chloride Carbon Dioxide Anion Gap BUN Creatinine Estim Creat Clear Calc Estimated GFR POC Glucose 218 H 186 H Fasting Glucose Calcium Total Bilirubin Direct Bilirubin AST ALT Alkaline Phosphatase Total Protein Albumin Hep Bs Antigen Negative Hep Bs Antibody NONREACTIVE Hep B Core Total Ab Nonreactive Hepatitis C Ab (EIA) Nonreactive 01/11/21 01/12/21 01/12/21 19:51 05:52 05:52 WBC 2.8 L RBC 4.02 L Hgb 13.2 L Hct 36.7 L MCV 91.3 MCH 32.8 MCHC 36.0 RDW 12.3 Plt Count 77 L MPV 10.0 Absolute Nucleated RBC 0.000 Nucleated RBC % (auto) 0.0 Sodium 140 Potassium 3.9 D Chloride 105 Carbon Dioxide 28 Anion Gap 11 L BUN 6 L Creatinine 0.76 Estim Creat Clear Calc 115.9 Estimated GFR > 60 POC Glucose 218 H Fasting Glucose 203 H Calcium 8.2 L D Total Bilirubin 0.5 Direct Bilirubin 0.4 AST 157 H ALT 199 H Alkaline Phosphatase 71 Total Protein 5.8 L Albumin 3.6 Hep Bs Antigen Hep Bs Antibody Hep B Core Total Ab Hepatitis C Ab (EIA) 01/12/21 07:30 WBC RBC Hgb Hct MCV MCH MCHC RDW Plt Count MPV Absolute Nucleated RBC Nucleated RBC % (auto) Sodium Potassium Chloride Carbon Dioxide Anion Gap BUN Creatinine Estim Creat Clear Calc Estimated GFR POC Glucose 228 H Fasting Glucose Calcium Total Bilirubin Direct Bilirubin AST ALT Alkaline Phosphatase Total Protein Albumin Hep Bs Antigen Hep Bs Antibody Hep B Core Total Ab Hepatitis C Ab (EIA) Discharge Plan Discharge Patient Disposition: Home, Self-Care Discharge Diagnosis: alcohol withdrawal and hepatitis, pancytopenia Referrals: Fritz Shelley MD [Primary Care Provider] - 1 Week Discharge Medications: Continued multivitamin Tablet 1 tab PO DAILY RF: 0 omega-3 fatty acids Capsule 1,000 mg PO DAILY RF: 0 quetiapine [Seroquel] 400 mg Tablet 400 mg PO DAILY RF: 0 metformin 500 mg tablet 500 mg PO BID Qty: 60 RF: 0 gemfibrozil 600 mg tablet 600 mg PO BID Qty: 180 RF: 11 labetalol 300 mg tablet 300 mg PO BID Qty: 180 RF: 3 omeprazole 20 mg capsule,delayed release(DR/EC) 20 mg PO DAILY@0630 RF: 0 Discharge Orders: Discharge Order (Routine); Ordered 01/12/21 Ordered By: Herson Worthy Diet: advance to usual diet Activity on Discharge: As tolerated Stand Alone Forms: Patient Portal Discharge page, Work/School Release Other Ambulatory Orders: Complete Blood Count no Diff (Routine) Timeframe: 1 Week Facility: [facility] - Location: Laboratory Ordered By: Hreson Worthy Care Plan Goals: recovery Health Concerns: etoh, pancytopenia Plan of Treatment: avoid alcohol, follow up with pcp, recheck cbc in about 1 week Assessment: see above
--- NOTE | 2021-01-12 10:16 | MHC.CM.PN ---
Patient has been medically cleared for dc to home today, no services.
--- NOTE | 2021-01-12 14:22 | CONS_ITS ---
DATE OF SERVICE: 01/10/2021 REASON FOR CONSULTATION: Right upper quadrant discomfort, elevated LFTs, and alcohol abuse. HISTORY OF PRESENT ILLNESS: This has been obtained from the patient, his girlfriend, and the medical record. The patient is a 55-year-old male with a long-standing history of intermittent alcohol use and recent binging over the past several days. He has developed some right upper quadrant pain, vomiting, and fatigue. He came to the ER for evaluation and was found to have significantly elevated LFTs. He has been having some vomiting at home, which he describes as bloody. He did have an upper endoscopy in [address] Simmons describing some esophagitis and gastritis, but no report of varices. Since admission to the ER and up to the medical floor, he has had no further vomiting. He denies any melena nor hematochezia. At home, he was drinking heavily and using some marijuana, but denies any other drug use, nor any other mzpn-eab-wbxukgy medications such as NSAIDs or acetaminophen. He reports that the only medication he presently uses at home is omeprazole. He reports that he still has some right upper quadrant pain, but does feel better than yesterday. He denies any history of jaundice in the past nor ulcer disease. MEDICATIONS: Medications at home, omeprazole. He does report that he supposed to be taking other medications such as gemfibrozil, labetalol, metformin, and Seroquel, but has not been using those because he ran out of them and has been trying to establish a new primary care physician. Medications here in the hospital include omeprazole, Lovenox, folic acid, gemfibrozil, labetalol, melatonin p.r.n., metformin, multivitamins, phenobarbital, Seroquel, thiamine, and Ambien. PAST MEDICAL HISTORY: Surgery for a varicocele. Alcohol abuse as above. Upper endoscopy in 2018 describing some esophagitis and gastritis with gastric biopsies negative for H pylori. He had a negative screening colonoscopy with Dr. Simmons in April 2018. He does have underlying history of hyperlipidemia. Eba-bnbtysp-wvtuhlxcj diabetes mellitus. Hypertension. He also has a history of bipolar disease. 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 He does not smoke. Alcohol as above. FAMILY HISTORY: Noncontributory. REVIEW OF SYSTEMS: CONSTITUTIONAL: He has been feeling fairly poorly at home. SKIN: No rash. No pruritus. CARDIAC: No chest pain. PULMONARY: No coughing. No hemoptysis. GASTROINTESTINAL: As above. URINARY: No dysuria. No hematuria. NEUROLOGIC: No headache or seizures. PHYSICAL EXAMINATION: GENERAL: The patient is alert, comfortable-appearing male, in no distress. He answers questions appropriately and is cooperative. SKIN: Warm and dry. Nonjaundiced. HEENT: Anicteric sclerae. NECK: Supple. CHEST: Clear. CARDIAC: Normal S1 and S2. ABDOMEN: Soft, nondistended. Bowel sounds are normal. He does have some right upper quadrant discomfort, but no mass, rebound, or guarding. EXTREMITIES: Without edema. LABORATORY DATA: On admission, his white blood cell count was 15.1 and today is 6.1. Hemoglobin was initially 18.9, but today is 14.5. Platelets 265,000 yesterday and 151,000 today. PT was 13.2 with INR 1.2 yesterday. His total bilirubin was 1.1 yesterday and 2.0 today with a direct bilirubin today of 0.8. AST was 955 yesterday and 521 today. ALT was 555 yesterday and 373 today. Alkaline phosphatase was 62 today and 78 yesterday. Ammonia level was 56 yesterday. Albumin was 3.6. Lipase was 81 yesterday and 104 today. Urine toxicology was positive for barbiturates and marijuana, but negative otherwise. His alcohol level was 277. Salicylates and acetaminophen were negative. COVID test was negative. Hepatitis profile is pending. CT scan of the abdomen and pelvis describes hepatomegaly, but an unremarkable pancreas and spleen. There is no biliary disease. The GI tract appeared unremarkable. There is no sign of any liver mass. IMPRESSION: Given the patient's clinical history, this seems consistent with alcohol-induced hepatitis based on his alcohol level and liver enzymes, which were in the typical ratio for alcohol-induced liver injury. However, the degree of elevation of liver enzymes is rather atypical, but he does not appear to have any other source of acute hepatitis at this time, although hepatitis viral serologies are pending. Does not show any signs of liver failure, particularly with his normal PT and INR and just minimally elevated total bilirubin. He does not show any signs of encephalopathy. In regard to the reported GI bleeding, I suspect this represents some esophagitis and/or gastritis in relation to the vomiting and alcohol use, similar to his episode in 2018. Given the clinical history, I do not think endoscopy is currently required unless he was just shows signs of active bleeding. I do not think he needs any steroids for his alcohol-induced hepatitis at this time based on his laboratories. At this point, I will continue supportive care, omeprazole, followup laboratories, and check the final studies of the hepatitis serologies. I did review with him and his girlfriend obviously the need to avoid alcohol completely on a long-term basis. I do not think any further evaluation of his liver disease is required at this time. This has all been discussed with the patient and his girlfriend in detail and they are comfortable with this plan. Please advise me if I could be of any further assistance during his hospitalization. MD PEACE Pickens/BRANDON / [phone] MTDD
[2021-01-14 07:48] LABS: HBsAGNum1 0.22 S/CO (0.00-0.99)
[2021-01-14 09:16] LABS: Hepatitis A Antibody IgM 0.12 Index (0-0.79); ~Hepatitis A Antibody IgM Nonreactive (Nonreactive)
== END 2021-01-12 11:02 | disposition home or self-care (01) | DRG 432 ==
LOC: HO.ED 19:19 → HO.EDOVER 21:25 → HO.IMC 01-10 15:09
PROVIDERS: Internal Medicine; Admitting Provider Internal Medicine; Emergency Provider Student in an Organized Health Care Education/Training Program; PCP Internal Medicine; Visit Provider Internal Medicine
DX: K70.10 Alcoholic hepatitis without ascites (principal); K85.20 Alcohol induced acute pancreatitis without necrosis or infection; F10.239 Alcohol dependence with withdrawal, unspecified; E87.2 Acidosis; E87.1 Hypo-osmolality and hyponatremia; D61.818 Other pancytopenia; E87.6 Hypokalemia; E86.0 Dehydration; K21.9 Gastro-esophageal reflux disease without esophagitis; E78.5 Hyperlipidemia, unspecified; I10 Essential (primary) hypertension; D75.1 Secondary polycythemia; Z20.822 Contact with and (suspected) exposure to COVID-19; Z79.84 Long term (current) use of oral hypoglycemic drugs; Z79.899 Other long term (current) drug therapy
CPT/HCPCS: 36415; 74177; 80048; 80076; 80143; 80179; 80307; 82009; 82077; 82140; 82947; 83690; 83735; 85025; 85027; 85610; 85730; 86704; 86706; 86709; 86803; 87340; 87635; 99285; J1650; J1790; J2060; J2270; J2405; J2560; Q9967

== ENCOUNTER 2021-02-23 09:24 | Outpatient (REF) | payer BC, MEDICAID, SELFPAY ==
--- NOTE | ~2021-02-23 | US_ITS ---
EXAMINATION: US COMPLETE ABDOMEN WITH LIVER ELASTOGRAPHY CLINICAL INFORMATION: Hepatic steatosis. COMPARISON: Ultrasound abdomen 09/19/2018 TECHNIQUE: Real-time imaging of the abdominal viscera. Noninvasive ultrasound liver fibrosis assessment is performed using Britney ElastPQ point quantification shear wave elastography (pSWE) with a C5-2 MHz transducer. Multiple elastography samples are obtained. FINDINGS: PANCREAS: Normal. The visualized pancreatic head and body are normal in appearance. The remainder of the pancreas is obscured from visualization by the overlying bowel gas. ABDOMINAL AORTA: The proximal and mid abdominal aortic segments are not visualized. The distal distal aortic segment is normal in caliber. INFERIOR VENA CAVA: Visualized portions are normal. LIVER: The liver demonstrates normal size, contour and diffuse increased echogenicity. There are areas of focal fatty sparing. No additional focal lesion or intrahepatic biliary duct dilatation. The right lobe measures 16.4 cm in length. The left lobe measures 10.8 cm in length. Portal flow is hepatopedal. Shear wave liver elastography median stiffness is 1.96 m/s (reference: normal median stiffness is 1.3 m/s or less). IQR/median stiffness to assess sampling precision is 0.2 (reference: good quality data set is IQR/median stiffness of 0.15 or less). GALLBLADDER: Normal. The gallbladder is physiologically distended without evidence of stones, sludge, polyps, wall thickening or pericholecystic fluid. COMMON BILE DUCT: Normal in caliber measuring 0.28 cm in diameter. RIGHT KIDNEY: Normal. No hydronephrosis. No renal calculi or focal parenchymal lesions. The kidney measures 11.5 cm in maximum dimension. LEFT KIDNEY: Normal. No hydronephrosis. No renal calculi or focal parenchymal lesions. The kidney measures 11.0 cm in maximum dimension. SPLEEN: Normal. The spleen measures 12.1 cm in maximum dimension. FREE FLUID: None. US/US abdomen comp w elastography IMPRESSION: 1. Diffuse hepatic steatosis with areas of focal fatty sparing. 2. Liver elastography: Median liver stiffness 1.96 m/s suggestive of cACLD. REFERENCE: Society of Radiologists in Ultrasound Liver Stiffness Thresholds (2020): LIVER STIFFNESS THRESHOLDS: *Liver Stiffness equal or less than 1.3 m/s: High probability of being normal. *Liver Stiffness less than 1.7 m/s: In the absence of other known clinical signs, rules out compensated advanced chronic liver disease. *Liver Stiffness 1.7-2.1 m/s: Suggestive of compensated advanced chronic liver disease but need further test for confirmation. *Liver Stiffness over 2.1 m/s: Rules in compensated advanced chronic liver disease. *Liver Stiffness over 2.4 m/s: Suggestive of clinically significant portal hypertension. QUALITY OF DATA SET: *IQR/Median value equal or less than 0.15 implies a quality data set. *IQR/Median value over 0.15 implies a poor quality data set. SIGNIFICANT CHANGE FROM PRIOR EXAM: Significant change if liver stiffness measurement is 10% or greater from prior exam. OTHER CONSIDERATIONS: The stage of liver fibrosis may be overestimated in the setting of acute hepatitis, liver inflammation, elevated liver function tests, hepatic vascular congestion, obstructive cholestasis, non-fasting state, and infiltrative diseases such as amyloidosis and lymphoma. In some patients with NAFLD, the liver stiffness thresholds for compensated advanced chronic liver disease may be lower. In causes other than viral hepatitis and NAFLD, liver stiffness thresholds are not well established.
== END 2021-02-23 09:25 | disposition home or self-care (01) ==
LOC: HO.US 09:24
PROVIDERS: Visit Provider Internal Medicine Gastroenterology
DX: K76.0 Fatty (change of) liver, not elsewhere classified (principal)
CPT/HCPCS: 76705; 76981

== ENCOUNTER 2021-07-29 06:12 | Outpatient (REF) | payer OTHER, SELFPAY ==
[2021-07-29 11:21] LABS: Appearance Urine CLOUDY; Color Urine YELLOW; Glucose Urine UA NEG (NEG); Leukocyte Esterase Urine NEG (NEG); Nitrite Urine NEG (NEG); Specific Gravity - Urine >= 1.030 (1.005-1.025); Urine Blood NEG (NEG); Urine Ketones NEG (NEG); Urine Protein NEG (NEG-TRACE)
[2021-07-29 11:44] LABS: Creatinine Urine 161.71 mg/dL; Microalbum/Creatinine Ratio Ur 3.7 ug/mg cr
[2021-07-29 11:54] LABS: Estimated Average Glucose 146 mg/dL; Hemoglobin A1c % 6.7 %
[2021-07-29 12:04] LABS: Alanine Aminotransferase 22 U/L (0-40); Albumin Level 4.6 g/dL (3.5-5.0); Alkaline Phosphatase 60 U/L (39-117); Anion Gap 13 (12-20); Aspartate Amino Transferase 20 U/L (5-37); Bilirubin Total 0.4 mg/dL (0.0-1.0); Blood Urea Nitrogen 21 mg/dL (9-16); Calcium 10.3 mg/dL (8.4-10.2); Carbon Dioxide 28 mmol/L (22-29); Chloride 104 mmol/L (96-108); Cholesterol 236 mg/dL; Estimated Glomerular Filt Rate > 60; Glucose Fasting 175 mg/dL (60-99); HDL Cholesterol 53 mg/dL; LDL Cholesterol Calculated 152 mg/dl; Potassium 4.6 mmol/L (3.3-5.1); Sodium 140 mmol/L (135-145); Total Protein 7.3 g/dL (6.5-8.0); Triglycerides 156 mg/dL
[2021-07-29 13:02] LABS: Prostate Specific Antigen Scr 0.89 ng/mL (<0.05-4.0)
== END 2021-07-29 06:13 | disposition home or self-care (01) ==
LOC: HO.HMGCLDS 06:12
PROVIDERS: PCP Nurse Practitioner Family; Visit Provider Nurse Practitioner Family
DX: Z00.00 Encounter for general adult medical examination without abnormal findings (principal); Z12.5 Encounter for screening for malignant neoplasm of prostate; E11.9 Type 2 diabetes mellitus without complications
CPT/HCPCS: 36415; 80053; 80061; 81003; 82043; 83036; 84153; 84443

== ENCOUNTER 2021-09-23 03:47 | Inpatient (IN) | payer OTHER, SELFPAY ==
--- NOTE | 2021-09-23 | ECG_ITS ---
Test Reason : med clearance Blood Pressure : / mmHG Vent. Rate : 091 BPM Atrial Rate : 091 BPM P-R Int : 168 ms QRS Dur : 092 ms QT Int : 348 ms P-R-T Axes : 032 -19 029 degrees QTc Int : 428 ms Normal sinus rhythm Normal ECG When compared with ECG of 01-NOV-2020 08:49, No significant change was found Referred By: Sudha Ley Electronically Signed By:Bahman Chavira
[2021-09-23 03:51] VITALS: BP 127/93; PULSE 107; RESP 18; TEMP 36; O2SAT 95; BMI 29.7
[2021-09-23 04:12] LABS: Glucose, Whole Blood 171 mg/dL (60-115)
[2021-09-23] MEDS: LORazepam 1 MG TABLET 2 MG PO ×3 (04:22→12:27)
--- NOTE | 2021-09-23 04:25 | PC.NURSE ---
Patient is restless, reporting racing thought, provider notified/ordered Ativan 2 mg PO/administered as ordered/pending effect, patient does intermittent screaming as a coping to counter his racing thought, patient i currently being closely observed for behavior escalation, med rec completed/pending provider's approval, patient is apparently under ETOH influence, thought process coherent, patient reported he stopped taking his medication for his bipolar, Sertraline and Serequel for over 2 years, care team consult ordered/pending evaluation in the morning, will continue to monitor.
[2021-09-23 04:42] LABS: MANUAL DIFF FLAG NO
[2021-09-23 04:43] LABS: Basophils Percent Auto 0.3 % (0-2); Eosinophils Absolute Auto 0.1 X10*3/uL (0.0-0.4); Eosinophils Percent Auto 0.9 % (0-4); Hematocrit 48.4 % (42.0-52.0); Hemoglobin 17.5 g/dl (14.0-18.0); Imm Gran Abs Auto 0.06 X10*3/uL (0.00-0.03); Imm Gran Pct Auto 0.5 % (0.0-0.4); Lymphocytes Absolute Auto 4.2 X10*3/uL (1.2-4.9); Mean Corpuscular HGB Conc 36.2 g/dl (31.0-36.0); Mean Corpuscular Volume 85.8 fL (80.0-98.0); Mean Platelet Volume 8.8 fL (9.4-12.4); Monocytes Absolute Auto 0.7 X10*3/uL (0.1-1.2); Monocytes Percent Auto 5.5 % (2-11); Neutrophils Absolute Auto 7.3 x10*3/uL (2.0-8.3); Neutrophils Percent Auto 58.8 % (45-73); Platelet Count 280 X10*3/uL (160-400); Red Blood Count 5.64 X10*6/uL (4.60-5.80); White Blood Count 12.3 X10*3/uL (4.8-10.8)
[2021-09-23 04:55] LABS: Ethanol 274 mg/dL
[2021-09-23 04:57] LABS: COVID-19 Test Negative (Negative)
[2021-09-23 05:00] LABS: Acetaminophen LAB < 1 mcg/mL (<30); Alanine Aminotransferase 34 U/L (0-40); Albumin Level 5.1 g/dL (3.5-5.0); Alkaline Phosphatase 62 U/L (39-117); Anion Gap 17 (12-20); Aspartate Amino Transferase 25 U/L (5-37); Bilirubin Direct 0.2 mg/dL (0.0-0.5); Bilirubin Total 0.4 mg/dL (0.0-1.0); Blood Urea Nitrogen 15 mg/dL (9-16); Calcium 9.8 mg/dL (8.4-10.2); Carbon Dioxide 25 mmol/L (22-29); Chloride 103 mmol/L (96-108); Creatinine Clr Calc Pharmacy 81.2; Estimated Glomerular Filt Rate > 60; Glucose Random 160 mg/dL (60-115); Magnesium 2.2 mg/dL (1.6-2.6); Potassium 4.3 mmol/L (3.3-5.1); Salicylate < 5.0 mg/dL (15-30); Sodium 141 mmol/L (135-145); Total Protein 8.4 g/dL (6.5-8.0)
--- NOTE | 2021-09-23 05:22 | PC.NURSE ---
Patient have his hospital Chato around his neck and was trying to find spot to hang himself as reported by the patient. Provider notified/ordered 1:1 observation suicidal risk, will continue to monitor.
--- NOTE | 2021-09-23 06:11 | ED_ITS ---
HPI - Psych General Chief Complaint: Psychiatric Symptoms Stated Complaint: Section 12 Time Seen by Provider: 09/23/21 06:08 Source: patient and EMS Mode of arrival: EMS Limitations: no limitations History of Present Illness HPI Narrative: Patient comes to the emergency room for suicidal ideation. Patient states that he wants to hang himself, patient admits to drinking alcohol. At home, patient ready to hang self with close. Here in the Emergency Behavioral Health room, patient grabbed his robe and tried tying it around his neck Related Data Home Medications Medication Instructions Recorded Confirmed labetalol 300 mg tablet 1 tab PO BID 09/23/21 09/23/21 metformin 500 mg tablet 1 tab PO BID 09/23/21 09/23/21 rosuvastatin 10 mg tablet 1 tab PO DAILY 09/23/21 09/23/21 trazodone 100 mg tablet 1 tab PO DAILY 09/23/21 09/23/21 Allergies Allergy/AdvReac Type Severity Reaction Status Date / Time No Known Allergies Allergy Verified 07/30/21 12:23 [No Known Allergies*] Review of Systems Review of Systems: Constitutional : No Weight loss, No Fever, No Chills, No Night Sweats, No Fatigue, No Malaise ENT/Mouth : No Hearing loss, No Ear Pain, No Nasal Congestion, No Sinus Pain, No Hoarseness, No sore throat, No Rhinorrhea, No Swallowing Difficulty Eyes: No Eye Pain, No Swelling, No Redness, No Foreign Body, No Discharge, No Vision Changes Cardiovascular : No Chest Pain, No SOB, No Dyspnea on Exertion, No Orthopnea, No Edema, No Palpitations Respiratory : No Cough, No Sputum, No Wheezing, No Smoke Exposure, No Dyspnea Gastrointestinal : No Nausea, No Vomiting, No Diarrhea, No Constipation, No abdo eleazar Pain, No Hematochezia, No Melena Genitourinary : no irregular bleeding, No Dysuria, No Urinary Frequency, No Hematuria, No Urinary Incontinence, No Urgency, No Flank Pain, No Urinary Flow Changes, No Hesitancy Musculoskeletal : No joint pain, No Myalgias, No Joint Swelling Skin : No Skin Lesions, No rash Neuro : No Weakness, No Numbness, No Paresthesias, No Loss of Consciousness, No Dizziness, No Headache Psych : Complaining of anxiety, depression, suicidal ideation, no homicidal ideation, alcohol abuse Heme/Lymph: No Bruising, No Bleeding,No Lymphadenopathy Endocrine : No Polyuria, No Polydipsia, No Temperature Intolerance [facility] Past Medical History Medical History (Updated 09/23/21 @ 06:15 by Rhona Marsh MD) Abdominal pain Acute hepatitis Alcohol dependence Alcohol withdrawal Anxiety Bipolar depression Diabetes mellitus History of alcoholic hepatitis HTN (hypertension) Surgical History No pertinent past surgical history Family History Family History Father Advanced cirrhosis of liver Alcoholic cirrhosis Substance use disorder Mother Dementia Maternal Grandfather Substance use disorder Sister Substance use disorder Social History Social History Household Members: Spouse Housing: House Do you presently have visiting nurse or other home services: No Alcohol intake: current Alcohol intake frequency: 3 or more drinks per day Alcohol type: beer and hard liquor Patient Tobacco Use Status: Former Tobacco user Tobacco use type: Cigarette Years Smoked: quit 10 years ago e-Cigarette/Vaping Use: Never Used Second Hand Smoke Exposure: No Advance Directives: No service: No Current occupational 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 Oriented X3. No acute distress. Eyes: Pupils equal, round and reactive to light. ENT: Pharynx normal. Neck: Normal inspection. Neck supple. No lymph nodes noted. No crepitus CVS: Normal heart rate and rhythm. Pulses normal. Normal S1 and S2 Respiratory: No respiratory distress. Breath sounds normal. No Wheezing. No rales Abdomen: Soft and nontender. No rigidity. No distention. Skin: Skin warm and dry. Normal skin color. Normal skin turgor. Extremities: No lower extremity edema. No Lacerations. No Rash Neuro: Oriented X 3. No motor deficit. No sensory deficit. Moving all extremities. No slurred speech. CN 2 through 12 grossly intact Psych: calm, cooperative, normal affect Course Course Course Narrative: Patient will be seen by the care team. Physician supervision started at 06:00 Patient is on a Section 12 MDM - Psych Lab Data Result diagrams: 09/23/21 04:37 09/23/21 04:36 Labs: Lab Results 09/23/21 09/23/21 09/23/21 Range/Units 04:07 04:36 04:36 WBC (4.8-10.8) X10*3/uL RBC (4.60-5.80) X10*6/uL Hgb (14.0-18.0) g/dl Hct (42.0-52.0) % MCV (80.0-98.0) fL MCH (27.0-33.0) pg MCHC (31.0-36.0) g/dl RDW (11.0-16.0) % Plt Count (160-400) X10*3/uL MPV (9.4-12.4) fL Immature Gran % (Auto) (0.0-0.4) % Neut % (Auto) (45-73) % Lymph % (Auto) (20-40) % [place] % (Auto) (2-11) % Eos % (Auto) (0-4) % Baso % (Auto) (0-2) % Lymph # (Auto) (1.2-4.9) X10*3/uL [place] # (Auto) (0.1-1.2) X10*3/uL Eos # (Auto) (0.0-0.4) X10*3/uL Baso # (Auto) (0.0-0.2) X10*3/uL Abs Immat Gran (auto) (0.00-0.03) X10*3/uL Absolute Neuts (auto) (2.0-8.3) x10*3/uL Absolute Nucleated RBC (0.0-0.012) X10*3/uL Nucleated RBC % (auto) (0.0-0.2) /100WBC Sodium 141 (135-145) mmol/L Potassium 4.3 (3.3-5.1) mmol/L Chloride 103 (96-108) mmol/L Carbon Dioxide 25 (22-29) mmol/L Anion Gap 17 (12-20) BUN 15 (9-16) mg/dL Creatinine 1.09 (0.5-1.4) mg/dL Estim Creat Clear Calc 81.2 Estimated GFR > 60 POC Glucose 171 H (60-115) mg/dL Random Glucose 160 H D (60-115) mg/dL Calcium 9.8 (8.4-10.2) mg/dL Magnesium 2.2 (1.6-2.6) mg/dL Total Bilirubin 0.4 (0.0-1.0) mg/dL Direct Bilirubin 0.2 (0.0-0.5) mg/dL AST 25 (5-37) U/L ALT 34 (0-40) U/L Alkaline Phosphatase 62 (39-117) U/L Total Protein 8.4 H (6.5-8.0) g/dL Albumin 5.1 H (3.5-5.0) g/dL Salicylates < 5.0 L (15-30) mg/dL Acetaminophen < 1 (<30) mcg/mL Ethyl Alcohol 274 mg/dL COVID-19 (ARCENIO) (Negative) COVID-19 Clin Com 09/23/21 09/23/21 Range/Units 04:37 04:37 WBC 12.3 H (4.8-10.8) X10*3/uL RBC 5.64 (4.60-5.80) X10*6/uL Hgb 17.5 (14.0-18.0) g/dl Hct 48.4 (42.0-52.0) % MCV 85.8 (80.0-98.0) fL MCH 31.0 (27.0-33.0) pg MCHC 36.2 H (31.0-36.0) g/dl RDW 13.0 (11.0-16.0) % Plt Count 280 (160-400) X10*3/uL MPV 8.8 L (9.4-12.4) fL Immature Gran % (Auto) 0.5 H (0.0-0.4) % Neut % (Auto) 58.8 (45-73) % Lymph % (Auto) 34.0 (20-40) % [place] % (Auto) 5.5 (2-11) % Eos % (Auto) 0.9 (0-4) % Baso % (Auto) 0.3 (0-2) % Lymph # (Auto) 4.2 (1.2-4.9) X10*3/uL [place] # (Auto) 0.7 (0.1-1.2) X10*3/uL Eos # (Auto) 0.1 (0.0-0.4) X10*3/uL Baso # (Auto) 0.0 (0.0-0.2) X10*3/uL Abs Immat Gran (auto) 0.06 H (0.00-0.03) X10*3/uL Absolute Neuts (auto) 7.3 (2.0-8.3) x10*3/uL Absolute Nucleated RBC 0.000 (0.0-0.012) X10*3/uL Nucleated RBC % (auto) 0.0 (0.0-0.2) /100WBC Sodium (135-145) mmol/L Potassium (3.3-5.1) mmol/L Chloride (96-108) mmol/L Carbon Dioxide (22-29) mmol/L Anion Gap (12-20) BUN (9-16) mg/dL Creatinine (0.5-1.4) mg/dL Estim Creat Clear Calc Estimated GFR POC Glucose (60-115) mg/dL Random Glucose (60-115) mg/dL Calcium (8.4-10.2) mg/dL Magnesium (1.6-2.6) mg/dL Total Bilirubin (0.0-1.0) mg/dL Direct Bilirubin (0.0-0.5) mg/dL AST (5-37) U/L ALT (0-40) U/L Alkaline Phosphatase (39-117) U/L Total Protein (6.5-8.0) g/dL Albumin (3.5-5.0) g/dL Salicylates (15-30) mg/dL Acetaminophen (<30) mcg/mL Ethyl Alcohol mg/dL COVID-19 (ARCENIO) Negative (Negative) COVID-19 Clin Com See Note Discharge Plan Discharge Clinical Impression: Suicide ideation Patient Disposition: Still a Patient Prescriptions: No Action metformin 500 mg tablet 1 tab PO BID trazodone 100 mg tablet 1 tab PO DAILY rosuvastatin 10 mg tablet 1 tab PO DAILY labetalol 300 mg tablet 1 tab PO BID
--- NOTE | 2021-09-23 07:11 | PC.NURSE ---
patient appears to remain asleep at present respirations are even and unlabored patient appears in no distress
[2021-09-23 08:21] VITALS: BP 143/99; PULSE 116; RESP 18; TEMP 36.7; O2SAT 95
--- NOTE | 2021-09-23 09:11 | PHA.MEDREC ---
Pharmacy Consult ? Medication Reconciliation Pharmacy has reviewed the medication reconciliation completed by Samuel. Stacey Currie, SanjayD
[2021-09-23] MEDS: OLANZapine 5 MG TABLET PO (09:13)
[2021-09-23] MEDS: Labetalol HCL 100 MG TABLET 300 MG PO ×2 (09:41→21:46)
[2021-09-23] MEDS: Atorvastatin Calcium 40 MG TABLET PO (09:41)
[2021-09-23] MEDS: metFORMIN HCl 500 MG TABLET PO ×2 (09:41→21:47)
[2021-09-23] MEDS: Folic Acid 1 MG TABLET PO (12:25)
[2021-09-23] MEDS: Thiamine HCL 100 MG TABLET 200 MG PO (12:25)
[2021-09-23 12:29] VITALS: BP 111/79; PULSE 97; RESP 18; TEMP 36.4; O2SAT 96
[2021-09-23] MEDS: Omeprazole 40 MG CAPSULE.DR PO (13:27)
[2021-09-23] MEDS: Gabapentin 300 MG CAPSULE PO ×2 (14:06→21:46)
[2021-09-23] MEDS: LORazepam 1 MG TABLET PO ×3 (14:06→21:46)
--- NOTE | 2021-09-23 16:43 | MHC.CARE ---
Pt refused to sign a Voluntary Admission Form. Psychiatry will be consulted.
[2021-09-23 16:51] VITALS: BP 130/102; PULSE 107; RESP 18; TEMP 36.3; O2SAT 96
[2021-09-23 17:13] VITALS: BP 143/85; PULSE 108; RESP 17; TEMP 36.6; O2SAT 97
[2021-09-23 18:00] VITALS: BP 128/92; PULSE 106; TEMP 36.2; O2SAT 95
--- NOTE | 2021-09-23 18:00 | PC.ADMIT ---
PT admitted from [facility] with a diagnosis of unspecified bipolar disorder and alcohol use disorder on a CV. PT signed a 3-day letter upon arrival. Pt is calm and cooperative with admission process. Pt reports that he came to the hospital after binge drinking over the weekend, he states he was unable to stop drinking once he started. Pt reports that he was drinking because he went to see his mother who is suffering from dementia and that seeing her in that condition was extremely hard. Pt states that he usually keeps his drinking under control stating that he does not drink on weekdays, only weekends and only occasionally has more than 5 beers. Pt states that while he was intoxicated he made suicidal statements to his girlfriend and she brought him to the hospital. Per the crisis eval pt told his girlfriend he was going to hang himself in the garage and then walked to the garage prompting her to call the police. PT reports that he has not been on psych meds for over a year, he states he was on seroquel and zoloft but after reading about the side effects does not want to take psych meds any more. Pt states he has been hospitalized once before, about 15 years ago on M5. PT reports poor sleep. Pt denies SI at this time, denies HI and hallucinations. Pt is linear and reality based in conversation. PT reports feeling safe on the unit. 15 minute safety checks initiated for safety.
[2021-09-23] MEDS: traZODone HCL 100 MG TABLET PO (21:47)
[2021-09-23 22:06] LABS: Glucose, Whole Blood 176 mg/dL (60-115)
[2021-09-24 05:45] VITALS: BP 120/75; PULSE 75
[2021-09-24 08:06] LABS: Glucose, Whole Blood 171 mg/dL (60-115)
[2021-09-24 08:15] VITALS: BP 127/93; PULSE 92; RESP 18; TEMP 36.9; O2SAT 95
[2021-09-24] MEDS: LORazepam 1 MG TABLET 2 MG PO (08:34)
[2021-09-24] MEDS: Labetalol HCL 100 MG TABLET 300 MG PO ×2 (08:35→20:10)
[2021-09-24] MEDS: Folic Acid 1 MG TABLET PO (08:36)
[2021-09-24] MEDS: Atorvastatin Calcium 40 MG TABLET PO (08:37)
[2021-09-24] MEDS: Gabapentin 300 MG CAPSULE PO ×3 (08:37→20:10)
[2021-09-24] MEDS: Omeprazole 40 MG CAPSULE.DR PO (08:37)
[2021-09-24] MEDS: metFORMIN HCl 500 MG TABLET PO ×2 (08:37→21:28)
[2021-09-24 08:54] LABS: Estimated Average Glucose 134 mg/dL; Hemoglobin A1c % 6.3 %
[2021-09-24 09:16] LABS: Alanine Aminotransferase 41 U/L (0-40); Albumin Level 4.6 g/dL (3.5-5.0); Alkaline Phosphatase 61 U/L (39-117); Anion Gap 14 (12-20); Aspartate Amino Transferase 29 U/L (5-37); Bilirubin Total 1.2 mg/dL (0.0-1.0); Blood Urea Nitrogen 26 mg/dL (9-16); Calcium 9.4 mg/dL (8.4-10.2); Carbon Dioxide 26 mmol/L (22-29); Chloride 102 mmol/L (96-108); Cholesterol 188 mg/dL; Creatinine Clr Calc Pharmacy 85.9; Estimated Glomerular Filt Rate > 60; Glucose Fasting 184 mg/dL (60-99); HDL Cholesterol 52 mg/dL; Potassium 3.9 mmol/L (3.3-5.1); Sodium 138 mmol/L (135-145); Total Protein 7.2 g/dL (6.5-8.0); Triglycerides 443 mg/dL
[2021-09-24 09:22] LABS: Thyroid Stimulating Hormone 1.95 uIU/mL (0.32-4.0)
[2021-09-24 09:56] LABS: Folate > 20.0 ng/mL (> or = 4.0); Vitamin B12 286 pg/mL (200-900)
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
[2021-09-24 11:46] LABS: Amphetamine Screen Urine Not Detected (Not Detect); Barbiturates, Urine Not Detected (Not Detect); Benzodiazepines Screen Urine Not Detected (Not Detect); Cannabinoid Screen Urine Not Detected (Not Detect); Cocaine Screen Urine Not Detected (Not Detect); Fentanyl, urine POSITIVE (Not Detect); Opiate Screen Urine Not Detected (Not Detect); Phencyclidine Screen Urine Not Detected (Not Detect)
[2021-09-24 14:00] VITALS: BP 144/95; PULSE 90; RESP 18; O2SAT 98
[2021-09-24] MEDS: LORazepam 1 MG TABLET PO (14:49)
[2021-09-24] MEDS: hydrOXYzine HCL 25 MG TABLET PO (17:00)
[2021-09-24 20:05] VITALS: BP 155/95; PULSE 94; RESP 18; TEMP 36.6; O2SAT 97
[2021-09-24] MEDS: Doxepin HCl 25 MG CAPSULE PO (20:10)
[2021-09-24] MEDS: traZODone HCL 100 MG TABLET PO ×2 (20:10→21:27)
[2021-09-24 20:15] LABS: Glucose, Whole Blood 177 mg/dL (60-115)
[2021-09-25] MEDS: Omeprazole 40 MG CAPSULE.DR PO (05:45)
[2021-09-25] MEDS: Acetaminophen 325 MG TABLET 650 MG PO ×2 (05:52→21:14)
[2021-09-25] MEDS: LORazepam 1 MG TABLET PO (05:52)
[2021-09-25 08:30] VITALS: BP 143/83; PULSE 76; RESP 16; TEMP 36.4; O2SAT 96
[2021-09-25] MEDS: Naltrexone HCl 50 MG TABLET PO (09:02)
[2021-09-25] MEDS: Gabapentin 300 MG CAPSULE PO ×3 (09:02→21:12)
[2021-09-25] MEDS: Atorvastatin Calcium 40 MG TABLET PO (09:02)
[2021-09-25] MEDS: metFORMIN HCl 500 MG TABLET PO ×2 (09:02→21:12)
[2021-09-25] MEDS: Folic Acid 1 MG TABLET PO (09:02)
[2021-09-25] MEDS: Labetalol HCL 100 MG TABLET 300 MG PO ×2 (09:02→21:12)
[2021-09-25 09:12] LABS: Glucose, Whole Blood 209 mg/dL (60-115)
[2021-09-25] MEDS: hydrOXYzine HCL 25 MG TABLET PO (15:38)
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
[2021-09-25] MEDS: LORazepam 0.5 MG TABLET PO (18:23)
--- NOTE | 2021-09-25 18:58 | MHC.RECOVSUP ---
? Reason for consult Recovery Support o Current location: [facility] o Identified substance use concern: Alcohol - Support ? Intervention: o Community resources provided o Harm reduction discussion ? Plan: o Patient to follow up with [facility] after discharge ? Additional information: met with patient and we talk about Harm reduction & recovery.. Patient was given [facility] information..
[2021-09-25 21:13] LABS: Glucose, Whole Blood 212 mg/dL (60-115)
[2021-09-25] MEDS: Doxepin HCl 25 MG CAPSULE PO (21:13)
[2021-09-25] MEDS: traZODone HCL 100 MG TABLET 200 MG PO (21:16)
[2021-09-25 21:20] VITALS: BP 160/97; PULSE 87; RESP 18; TEMP 36.6; O2SAT 97
[2021-09-26] MEDS: LORazepam 0.5 MG TABLET PO ×2 (02:42→13:35)
[2021-09-26 08:28] VITALS: BP 122/73; PULSE 70; RESP 16; TEMP 36.7; O2SAT 98
[2021-09-26] MEDS: Acetaminophen 325 MG TABLET 650 MG PO ×2 (08:39→15:46)
[2021-09-26] MEDS: Omeprazole 40 MG CAPSULE.DR PO (08:40)
[2021-09-26] MEDS: FLUoxetine HCl Oral Solution 20 MG/5 ML SOLUTION PO (08:40)
[2021-09-26] MEDS: Naltrexone HCl 50 MG TABLET PO (08:40)
[2021-09-26] MEDS: Labetalol HCL 100 MG TABLET 300 MG PO ×2 (08:40→21:14)
[2021-09-26] MEDS: Folic Acid 1 MG TABLET PO (08:41)
[2021-09-26] MEDS: metFORMIN HCl 500 MG TABLET PO ×2 (08:41→21:15)
[2021-09-26] MEDS: Atorvastatin Calcium 40 MG TABLET PO (08:41)
[2021-09-26] MEDS: Gabapentin 300 MG CAPSULE PO ×3 (08:41→21:15)
[2021-09-26 08:55] LABS: Glucose, Whole Blood 161 mg/dL (60-115)
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
[2021-09-26 21:05] VITALS: BP 133/80; PULSE 82; RESP 18; TEMP 36.6; O2SAT 97
[2021-09-26 21:14] LABS: Glucose, Whole Blood 261 mg/dL (60-115)
[2021-09-26] MEDS: traZODone HCL 100 MG TABLET 200 MG PO (21:14)
[2021-09-26] MEDS: Ibuprofen 800 MG TABLET PO (21:15)
[2021-09-26] MEDS: Doxepin HCl 25 MG CAPSULE PO (21:15)
--- NOTE | 2021-09-27 05:11 | PC.NURSE ---
Patient asked nurse not to wake him in the Am if he was sleeping to give him his omeprazole.
[2021-09-27 08:30] VITALS: BP 106/68; PULSE 70; RESP 18; TEMP 36.6; O2SAT 97
[2021-09-27] MEDS: Ibuprofen 800 MG TABLET PO ×2 (09:24→17:38)
[2021-09-27] MEDS: Folic Acid 1 MG TABLET PO (09:24)
[2021-09-27] MEDS: Atorvastatin Calcium 40 MG TABLET PO (09:24)
[2021-09-27] MEDS: Labetalol HCL 100 MG TABLET 300 MG PO ×2 (09:24→21:47)
[2021-09-27] MEDS: Gabapentin 300 MG CAPSULE PO ×2 (09:25→15:43)
[2021-09-27] MEDS: Naltrexone HCl 50 MG TABLET PO (09:25)
[2021-09-27] MEDS: FLUoxetine HCl Oral Solution 20 MG/5 ML SOLUTION PO (09:25)
[2021-09-27] MEDS: metFORMIN HCl 500 MG TABLET PO ×2 (09:25→21:47)
[2021-09-27] MEDS: Omeprazole 40 MG CAPSULE.DR PO (09:25)
[2021-09-27] MEDS: LORazepam 0.5 MG TABLET PO (09:30)
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
[2021-09-27 12:23] LABS: Glucose, Whole Blood 184 mg/dL (60-115)
[2021-09-27] MEDS: Acetaminophen 325 MG TABLET 650 MG PO (12:42)
[2021-09-27 21:42] LABS: Glucose, Whole Blood 191 mg/dL (60-115)
[2021-09-27 21:43] VITALS: BP 152/91; PULSE 80; RESP 18; TEMP 36.2; O2SAT 98
[2021-09-27] MEDS: QUEtiapine Fumarate 50 MG TABLET PO (21:47)
[2021-09-27] MEDS: traZODone HCL 100 MG TABLET 200 MG PO (21:47)
[2021-09-28] MEDS: LORazepam 0.5 MG TABLET PO (01:45)
[2021-09-28] MEDS: QUEtiapine Fumarate 50 MG TABLET PO (07:49)
[2021-09-28] MEDS: Omeprazole 40 MG CAPSULE.DR PO (07:51)
[2021-09-28 08:43] VITALS: BP 132/78; PULSE 69; RESP 15; TEMP 36.4; O2SAT 96
[2021-09-28] MEDS: Naltrexone HCl 50 MG TABLET PO (08:45)
[2021-09-28] MEDS: Folic Acid 1 MG TABLET PO (08:45)
[2021-09-28] MEDS: Labetalol HCL 100 MG TABLET 300 MG PO (08:45)
[2021-09-28] MEDS: FLUoxetine HCl 20 MG CAPSULE PO (08:46)
[2021-09-28] MEDS: Atorvastatin Calcium 40 MG TABLET PO (08:46)
[2021-09-28] MEDS: metFORMIN HCl 500 MG TABLET PO (08:46)
[2021-09-28 08:58] LABS: Glucose, Whole Blood 174 mg/dL (60-115)
[2021-09-28] MEDS: Ibuprofen 800 MG TABLET PO (11:07)
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
--- NOTE | 2021-09-28 14:40 | PC.NURSE ---
Patient is A & Ox[employer]. Patient is pleasant and cooperative upon approach. Patient is in agreement with discharge teachings and instructions. Patient denies SI/HI/AH/VH. Reports feeling ready for discharge. it took me 54 years to finally find a good job, I need to get back to it . Patient denies complaints at this time.
== END 2021-09-28 14:32 | disposition home health service (06) | DRG 885 ==
LOC: HO.ED 06:15 → HO.PADLT16 14:30
PROVIDERS: Admitting Provider Psychiatry & Neurology Psychiatry; Emergency Provider Emergency Medicine; Visit Provider Social Worker
DX: F33.2 Major depressive disorder, recurrent severe without psychotic features (principal); R45.851 Suicidal ideations; K21.9 Gastro-esophageal reflux disease without esophagitis; F10.20 Alcohol dependence, uncomplicated; Z20.822 Contact with and (suspected) exposure to COVID-19; Z87.891 Personal history of nicotine dependence; Z79.84 Long term (current) use of oral hypoglycemic drugs; Z79.899 Other long term (current) drug therapy
CPT/HCPCS: 36415; 80048; 80053; 80061; 80076; 80143; 80179; 80307; 82077; 82607; 82746; 82947; 83036; 83735; 84443; 85025; 87635; 93005; 99285

== ENCOUNTER 2021-10-13 00:49 | Emergency (ER) | payer OTHER, SELFPAY ==
[2021-10-13 00:51] VITALS: BP 145/108; PULSE 118; RESP 24; TEMP 36.7; O2SAT 95; BMI 30.5
--- NOTE | 2021-10-13 00:56 | ECG_ITS ---
Test Reason : CHEST PAIN Blood Pressure : / mmHG Vent. Rate : 113 BPM Atrial Rate : 113 BPM P-R Int : 162 ms QRS Dur : 090 ms QT Int : 326 ms P-R-T Axes : 026 135 012 degrees QTc Int : 447 ms Sinus tachycardia Right axis deviation Abnormal ECG When compared with ECG of 23-SEP-2021 14:02, No significant change was found Referred By: Generic ED Physician Electronically Signed By:Bahman Chavira
[2021-10-13 01:24] LABS: MANUAL DIFF FLAG NO
[2021-10-13 01:25] LABS: Basophils Absolute Auto 0.1 X10*3/uL (0.0-0.2); Basophils Percent Auto 0.3 % (0-2); Eosinophils Absolute Auto 0.1 X10*3/uL (0.0-0.4); Eosinophils Percent Auto 0.6 % (0-4); Hematocrit 48.5 % (42.0-52.0); Hemoglobin 17.2 g/dl (14.0-18.0); Imm Gran Abs Auto 0.11 X10*3/uL (0.00-0.03); Imm Gran Pct Auto 0.7 % (0.0-0.4); Lymphocytes Percent Auto 19.2 % (20-40); Mean Corpuscular HGB Conc 35.5 g/dl (31.0-36.0); Mean Corpuscular Volume 87.5 fL (80.0-98.0); Monocytes Percent Auto 6.3 % (2-11); Neutrophils Absolute Auto 11.4 x10*3/uL (2.0-8.3); Neutrophils Percent Auto 72.9 % (45-73); Platelet Count 357 X10*3/uL (160-400); Red Blood Count 5.54 X10*6/uL (4.60-5.80); Red Cell Distribution Width 13.2 % (11.0-16.0); White Blood Count 15.6 X10*3/uL (4.8-10.8)
[2021-10-13 01:40] LABS: COVID-19 Test Negative (Negative); IDNOW Serial# 16C4AD1C
--- NOTE | 2021-10-13 01:42 | ED_ITS ---
HPI - General Adult General Chief complaint: GI Bleed Stated complaint: ?Severe heartburn Time Seen by Provider: 10/13/21 01:29 Source: patient Limitations: no limitations History of Present Illness HPI narrative: For this is a 56-year-old male with a history of alcohol use disorder, binge drinking, who had been in detox within the last few weeks, and was clean for about a week, but 3 days ago began drinking again. Patient's last drink was about an hour ago but about 6 hours ago the patient began vomiting bright red blood. Patient has some upper abdominal pain and heartburn. He denies any shortness of breath. He does feel little lightheaded. He does have a history of prior hematemesis. He notes that his stool has been dark. He states his liver was checked when he last got admitted a few weeks ago and was normal. Related Data Home Medications Medication Instructions Recorded Confirmed labetalol 300 mg tablet 1 tab PO BID 09/23/21 09/23/21 metformin 500 mg tablet 1 tab PO BID 09/23/21 09/23/21 rosuvastatin 10 mg tablet 1 tab PO DAILY 09/23/21 09/23/21 Previous Rx's Medication Instructions Recorded fluoxetine 20 mg capsule 20 mg PO DAILY #30 caps 09/28/21 folic acid 1 mg tablet 1 mg PO DAILY #30 tabs 09/28/21 hydroxyzine HCl 25 mg tablet 25 mg PO Q6H PRN Anxiety #30 tabs 09/28/21 naltrexone 50 mg tablet 50 mg PO DAILY #30 tabs 09/28/21 omeprazole 40 mg capsule,delayed 40 mg PO DAILY@0630 #30 caps 09/28/21 release quetiapine 50 mg tablet 50 mg PO TID PRN sleep, anxiety 09/28/21 #60 tabs trazodone 100 mg tablet 200 mg PO BEDTIME #30 tabs 09/28/21 lorazepam 2 mg tablet 2 mg PO TID PRN alcohol withdrawal 10/13/21 #12 tabs ondansetron 4 mg disintegrating 4 mg PO Q6H PRN nausea and 10/13/21 tablet vomiting #10 tabs Allergies Allergy/AdvReac Type Severity Reaction Status Date / Time No Known Allergies Allergy Verified 07/30/21 12:23 [No Known Allergies*] Review of Systems Review of Systems: Yes all other systems are reviewed and are negative Constitutional: Constitutional: Reports as per HPI and Denies fever(s) Eyes: Eyes: Reports as per HPI and Reports no additional eye complaints ENT: Reports system reviewed and no additional complaints, except as documented, Reports as per HPI, Denies nasal congestion, Denies nasal discharge and Denies sore throat Cardiovascular: Cardiovascular: Reports as per HPI, Denies chest pain and Denies dyspnea Respiratory: Respiratory: Reports as per HPI, Denies cough and Denies dyspnea Gastrointestinal: Gastrointestinal: Reports as per HPI, Reports abdominal pain, Reports melena, Reports heartburn, Denies diarrhea, Reports vomiting and Reports hematemesis Genitourinary: Genitourinary: Reports as per HPI, Denies hematuria, Denies dysuria and Denies urinary frequency Musculoskeletal: Musculoskeletal: Reports no additional musculoskeletal complaints and Denies numbness Integumentary/Breasts: Skin/Breast: Reports as per HPI and Denies rash Neurologic: Reports as per HPI, Denies focal weakness and Denies numbness Comments: Anxiety and restlessness Psychiatric: Psychiatric: Reports no additional psychiatric complaints, Reports as per HPI and Reports anxiety Endocrine: Endocrine: Reports no additional endocrine complaints and Reports as per HPI Hematologic/Lymphatic: Hematologic/Lymphatic: Reports no additional hematologic/lymphatic complaints, Reports as per HPI and Reports other (No peripheral edema) [facility] Past Medical History Medical History (Updated 10/13/21 @ 02:48 by Chepe Sams MD) Abdominal pain Acute hepatitis Alcohol dependence Alcohol withdrawal Anxiety Benign essential hypertension Bipolar depression Diabetes mellitus GERD without esophagitis History of alcoholic hepatitis HTN (hypertension) Mixed hyperlipidemia Obesity (BMI 30-39.9) Other bursal cyst, left ankle and foot Other cyst of bone, left hand Surgical History No pertinent past surgical history Family History Family History Father Advanced cirrhosis of liver Alcoholic cirrhosis Substance use disorder Mother Dementia Maternal Grandfather Substance use disorder Sister Substance use disorder Social History Social History Household Members: Significant Other Housing: Apartment Do you presently have visiting nurse or other home services: No Alcohol intake: current Alcohol intake frequency: 3 or more drinks per day Alcohol type: beer and hard liquor Patient Tobacco Use Status: Former Tobacco user Tobacco use type: Cigarette Years Smoked: quit 10 years ago e-Cigarette/Vaping Use: Never Used Second Hand Smoke Exposure: No Advance Directives: No Advance Directives Information Provided: Yes service: No 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 Cognitive needs: No Hearing needs: No Vision needs: No Physical Exam ED Vital Signs: Vital Signs - 24 hr 10/13/ 00:51 Temperature 98.0 F Pulse Rate 118 H Respiratory Rate 24 H Blood Pressure 145/108 H Pulse Oximetry 95 Oxygen Delivery Method Room Air BMI result Body Mass Index 30.5 Const Other: patient not tremulous, not diaphoretic General: no acute distress Orientation/consciousness: patient oriented x3 HENMT Head: Yes normal to inspection General nose exam: Normal external nose present Mouth: moist mucous membranes Throat: Yes posterior oropharynx normal, Yes tonsils normal and Yes uvula midline Eyes Eyelids: Yes eyelids normal Conjunctivae: conjunctivae normal Pupils: Equal, round and reactive pupils present Neck Neck: Yes supple Resp Effort & Inspection: normal respiratory effort Auscultation: clear to auscultation bilaterally Cardio Rate: tachycardic Rhythm: regular rhythm Heart sounds: S1 normal heart sound present, S2 normal heart sound present, no gallops, no murmurs and no rubs GI Inspection: No distended Palpation (GI): Soft to palpation and Tenderness to palpation present (GI) ( epigastric, left upper quadrant) Auscultation: normal bowel sounds Skin General skin exam: other (Warm and dry) Neuro General: patient oriented x3 and CN's II-XI intact bilaterally Cranial nerves: Yes Equal, round and reactive pupils present Extrem General: Yes no pedal edema Psych Affect: normal affect Attitude: cooperative Medical Decision Making [facility] Narrative Medical decision making narrative: Patient here for reported hematemesis, had none observed in the emergency department, after having been drinking for 3 days. The patient had been sober for about a week. Patient also had sensation of heartburn. The patient was treated with Maalox and Protonix. Was also given Ativan IV. The patient upon re-evaluation at 02:40 with sleeping, upon awakening felt better, felt comfortable going home. Patient denied being suicidal. He felt that he would do fine at home with a prescription for Zofran for nausea, lorazepam for anxiety/ withdrawal. Patient does not appear to be in significant withdrawal, is not tremulous, is mildly tachycardic. Patient reported hematemesis but did not have any in the department and his hemoglobin and hematocrit are normal to slightly elevated consistent with hemoconcentration. The patient was hydrated with normal saline 1 L IV. Evaluation by [facility] for detox versus discharge home were discussed with the patient his and they felt comfortable with the latter. Lab Data Lab results reviewed: Yes I reviewed the patient's lab results. Result diagrams: 10/13/21 01:19 10/13/21 01:19 Labs: Lab Results 10/13/21 10/13/21 10/13/21 Range/Units 01:19 01:19 01:19 WBC 15.6 H (4.8-10.8) X10*3/uL RBC 5.54 (4.60-5.80) X10*6/uL Hgb 17.2 (14.0-18.0) g/dl Hct 48.5 (42.0-52.0) % MCV 87.5 (80.0-98.0) fL MCH 31.0 (27.0-33.0) pg MCHC 35.5 (31.0-36.0) g/dl RDW 13.2 (11.0-16.0) % Plt Count 357 D (160-400) X10*3/uL MPV 9.0 L (9.4-12.4) fL Immature Gran % (Auto) 0.7 H (0.0-0.4) % Neut % (Auto) 72.9 (45-73) % Lymph % (Auto) 19.2 L (20-40) % [place] % (Auto) 6.3 (2-11) % Eos % (Auto) 0.6 (0-4) % Baso % (Auto) 0.3 (0-2) % Lymph # (Auto) 3.0 (1.2-4.9) X10*3/uL [place] # (Auto) 1.0 (0.1-1.2) X10*3/uL Eos # (Auto) 0.1 (0.0-0.4) X10*3/uL Baso # (Auto) 0.1 (0.0-0.2) X10*3/uL Abs Immat Gran (auto) 0.11 H (0.00-0.03) X10*3/uL Absolute Neuts (auto) 11.4 H (2.0-8.3) x10*3/uL Absolute Nucleated RBC 0.000 (0.0-0.012) X10*3/uL Nucleated RBC % (auto) 0.0 (0.0-0.2) /100WBC PT (10.0-13.1) SEC INR (0.9-1.1) APTT (24.1-38.0) SEC Sodium 140 (135-145) mmol/L Potassium 4.1 (3.3-5.1) mmol/L Chloride 96 (96-108) mmol/L Carbon Dioxide 23 (22-29) mmol/L Anion Gap 25 H (12-20) BUN 13 (9-16) mg/dL Creatinine 0.84 (0.5-1.4) mg/dL Estim Creat Clear Calc 106.7 Estimated GFR > 60 Random Glucose 160 H (60-115) mg/dL Calcium 10.4 H D (8.4-10.2) mg/dL Troponin I High Sens (<3.5-35.0) ng/L Lipase 16 (8-78) U/L Ethyl Alcohol 208 mg/dL COVID-19 ([facility]) Negative (Negative) COVID-19 Clin Com See Note 10/13/21 10/13/21 Range/Units 01:19 01:57 WBC (4.8-10.8) X10*3/uL RBC (4.60-5.80) X10*6/uL Hgb (14.0-18.0) g/dl Hct (42.0-52.0) % MCV (80.0-98.0) fL MCH (27.0-33.0) pg MCHC (31.0-36.0) g/dl RDW (11.0-16.0) % Plt Count (160-400) X10*3/uL MPV (9.4-12.4) fL Immature Gran % (Auto) (0.0-0.4) % Neut % (Auto) (45-73) % Lymph % (Auto) (20-40) % [place] % (Auto) (2-11) % Eos % (Auto) (0-4) % Baso % (Auto) (0-2) % Lymph # (Auto) (1.2-4.9) X10*3/uL [place] # (Auto) (0.1-1.2) X10*3/uL Eos # (Auto) (0.0-0.4) X10*3/uL Baso # (Auto) (0.0-0.2) X10*3/uL Abs Immat Gran (auto) (0.00-0.03) X10*3/uL Absolute Neuts (auto) (2.0-8.3) x10*3/uL Absolute Nucleated RBC (0.0-0.012) X10*3/uL Nucleated RBC % (auto) (0.0-0.2) /100WBC PT 11.0 (10.0-13.1) SEC INR 1.0 (0.9-1.1) APTT 35.3 (24.1-38.0) SEC Sodium (135-145) mmol/L Potassium (3.3-5.1) mmol/L Chloride (96-108) mmol/L Carbon Dioxide (22-29) mmol/L Anion Gap (12-20) BUN (9-16) mg/dL Creatinine (0.5-1.4) mg/dL Estim Creat Clear Calc Estimated GFR Random Glucose (60-115) mg/dL Calcium (8.4-10.2) mg/dL Troponin I High Sens < 3.5 (<3.5-35.0) ng/L Lipase (8-78) U/L Ethyl Alcohol mg/dL COVID-19 ([facility]IO) (Negative) COVID-19 Clin Com ECG Data Attestation: I personally reviewed and interpreted this ECG as follows: Interpretation: Sinus tachycardia with a rate of 113. Right axis deviation. No concerning ST elevation or depression. No significant change compared to 09/23/2021 Discharge Plan Discharge Clinical Impression: Hematemesis, Anxiety, Alcohol use with alcohol-induced disorder Patient Disposition: Home, Self-Care Instructions: Alcohol Use Disorder (ED), Hematemesis (ED) Additional Instructions: Use the lorazepam and ondansetron as prescribed. Follow-up with your primary care physician. Return for any new or worsened symptoms Prescriptions: New ondansetron 4 mg tablet,disintegrating 4 mg PO Q6H PRN (Reason: nausea and vomiting) Qty: 10 0RF lorazepam 2 mg tablet 2 mg PO TID PRN (Reason: alcohol withdrawal) Qty: 12 0RF No Action metformin 500 mg tablet 1 tab PO BID rosuvastatin 10 mg tablet 1 tab PO DAILY labetalol 300 mg tablet 1 tab PO BID naltrexone 50 mg Tablet 50 mg PO DAILY Qty: 30 0RF omeprazole 40 mg Capsule,Delayed Release(Dr/Ec) 40 mg PO DAILY@0630 Qty: 30 0RF trazodone 100 mg Tablet 200 mg PO BEDTIME Qty: 30 1RF folic acid 1 mg Tablet 1 mg PO DAILY Qty: 30 0RF hydroxyzine HCl 25 mg Tablet 25 mg PO Q6H PRN (Reason: Anxiety) Qty: 30 0RF fluoxetine 20 mg Capsule 20 mg PO DAILY Qty: 30 0RF quetiapine 50 mg Tablet 50 mg PO TID PRN (Reason: sleep, anxiety) Qty: 60 0RF
[2021-10-13 01:43] LABS: Troponin-I High Sensitivity < 3.5 ng/L (<3.5-35.0)
[2021-10-13 01:46] LABS: Anion Gap 25 (12-20); Blood Urea Nitrogen 13 mg/dL (9-16); Calcium 10.4 mg/dL (8.4-10.2); Carbon Dioxide 23 mmol/L (22-29); Chloride 96 mmol/L (96-108); Creatinine Clr Calc Pharmacy 106.7; Estimated Glomerular Filt Rate > 60; Glucose Random 160 mg/dL (60-115); Potassium 4.1 mmol/L (3.3-5.1); Sodium 140 mmol/L (135-145)
[2021-10-13 01:53] LABS: Ethanol 208 mg/dL; Lipase 16 U/L (8-78)
[2021-10-13] MEDS: Pantoprazole Sodium 40 MG/10 ML VIAL 80 MG IVPUSH (02:02)
[2021-10-13] MEDS: LORazepam 2 MG/ML VIAL IVPUSH (02:02)
[2021-10-13] MEDS: Magnesium Hydrox/Alum Hydrox 30 ML ORAL.SUSP PO (02:02)
[2021-10-13] MEDS: ondansetron HCL 4 MG/2 ML VIAL IVPUSH (02:02)
[2021-10-13] MEDS: 0.9 % Sodium Chloride 1,000 ML 999 ML IV (02:12)
[2021-10-13 02:18] LABS: Partial Thromboplastin Time 35.3 SEC (24.1-38.0)
--- NOTE | 2021-10-13 03:18 | PC.NURSE ---
Pt a&o, no sob or chest pain. pt sleeping at time of discharge. Reviewed discharge instructions wit pt and family. Pt verbalized understanding. Reported to KUMAR Cardenas. Pt will be discharge after fluids are completed.
[2021-10-13 03:20] VITALS: BP 148/77; PULSE 113; RESP 16
== END 2021-10-13 04:11 | disposition home or self-care (01) ==
PROVIDERS: Emergency Provider Emergency Medicine; PCP Nurse Practitioner Family
DX: R04.2 Hemoptysis (principal); F41.1 Generalized anxiety disorder; F43.0 Acute stress reaction; F10.180 Alcohol abuse with alcohol-induced anxiety disorder; Y90.7 Blood alcohol level of 200-239 mg/100 ml; Z20.822 Contact with and (suspected) exposure to COVID-19; Z79.899 Other long term (current) drug therapy
CPT/HCPCS: 36415; 80048; 82077; 83690; 84484; 85025; 85610; 85730; 87635; 93005; 96360; 96365; 96375; 99284; J2060; J2405

== ENCOUNTER 2021-10-16 12:28 | Emergency (ER) | payer OTHER, SELFPAY ==
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
[2021-10-16 12:47] VITALS: BP 156/101; BP 158/88; PULSE 104; PULSE 109; RESP 22; TEMP 36.1; O2SAT 97; O2SAT 98; BMI 27.4
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
[2021-10-16 12:50] VITALS: RESP 20; BMI 32.3
[2021-10-16] MEDS: LORazepam 1 MG TABLET 2 MG PO ×2 (12:58→17:04)
[2021-10-16] MEDS: OLANZapine 5 MG TABLET PO (12:58)
--- NOTE | 2021-10-16 13:11 | PC.NURSE ---
Pt took po medication,
--- NOTE | 2021-10-16 13:21 | PC.NURSE ---
Pt continues to lie in bed screaming, vocally.
--- NOTE | 2021-10-16 13:25 | PC.NURSE ---
Pt requesting more medication at this time.
--- NOTE | 2021-10-16 13:31 | PC.NURSE ---
Pt continuing to request more medication. i just want to sleep when educated that there is no more medication to be offered. Per patient i'm just going to keep screaming until I get what I want.
--- NOTE | 2021-10-16 13:54 | PC.NURSE ---
Provider on board to allow PO medication to kick in instead of administering IM restraint at this time.
[2021-10-16 14:00] VITALS: RESP 24
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
--- NOTE | 2021-10-16 14:05 | PC.NURSE ---
Pt is ambulatory in room, intermittently screaming and lying down. Pt educated that a phone will not be supplied to him until he is in behavioral control/willing to keep clothing on.
--- NOTE | 2021-10-16 14:20 | PC.NURSE ---
Preliminary Med rec completed. Awaiting for pharmacy to confirm.
--- NOTE | 2021-10-16 14:21 | PC.NURSE ---
Pt agreeable to lab work at this time.
[2021-10-16 14:32] LABS: MANUAL DIFF FLAG NO
[2021-10-16 14:35] LABS: Basophils Absolute Auto 0.1 X10*3/uL (0.0-0.2); Basophils Percent Auto 0.7 % (0-2); Eosinophils Absolute Auto 0.3 X10*3/uL (0.0-0.4); Hematocrit 44.6 % (42.0-52.0); Imm Gran Abs Auto 0.06 X10*3/uL (0.00-0.03); Imm Gran Pct Auto 0.7 % (0.0-0.4); Lymphocytes Absolute Auto 3.2 X10*3/uL (1.2-4.9); Lymphocytes Percent Auto 35.4 % (20-40); Mean Corpuscular HGB Conc 35.9 g/dl (31.0-36.0); Mean Corpuscular Hemoglobin 30.9 pg (27.0-33.0); Mean Corpuscular Volume 86.3 fL (80.0-98.0); Mean Platelet Volume 8.7 fL (9.4-12.4); Monocytes Absolute Auto 0.4 X10*3/uL (0.1-1.2); Monocytes Percent Auto 4.9 % (2-11); Neutrophils Percent Auto 55.3 % (45-73); Platelet Count 287 X10*3/uL (160-400); Red Blood Count 5.17 X10*6/uL (4.60-5.80); Red Cell Distribution Width 12.7 % (11.0-16.0)
--- NOTE | 2021-10-16 14:36 | PC.NURSE ---
I SPOKE WITH PT'S FRIEND EMY. SHE STATES HE'S BEEN TALKING ABOUT GOING TO REHAB. TOLD HER WE WOULD DISCUSS DETOX WITH PT AND IF REFUSES SHE STATED SHE WILL PICK HIM UP.
[2021-10-16 14:51] LABS: Alanine Aminotransferase 23 U/L (0-40); Albumin Level 5.1 g/dL (3.5-5.0); Alkaline Phosphatase 74 U/L (39-117); Anion Gap 22 (12-20); Aspartate Amino Transferase 21 U/L (5-37); Bilirubin Direct 0.2 mg/dL (0.0-0.5); Bilirubin Total 0.4 mg/dL (0.0-1.0); Blood Urea Nitrogen 10 mg/dL (9-16); Calcium 9.1 mg/dL (8.4-10.2); Carbon Dioxide 25 mmol/L (22-29); Chloride 102 mmol/L (96-108); Creatinine Clr Calc Pharmacy 104.7; Estimated Glomerular Filt Rate > 60; Ethanol 289 mg/dL; Glucose Random 155 mg/dL (60-115); Potassium 4.2 mmol/L (3.3-5.1); Sodium 145 mmol/L (135-145); Total Protein 8.1 g/dL (6.5-8.0)
[2021-10-16 14:55] LABS: COVID-19 Test Negative (Negative)
--- NOTE | 2021-10-16 15:13 | PC.NURSE ---
Report from [facility] HE[facility], pt noted to be sleepng, no visible tremors or diaphoresis noted, resp reg and even. NAD.
[2021-10-16 17:02] VITALS: BP 143/102; PULSE 120; RESP 20; TEMP 36.7; O2SAT 96
[2021-10-16 17:05] VITALS: BP 143/102; PULSE 120
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
--- NOTE | 2021-10-16 17:53 | MHC.RECOVSUP ---
Recovery Support note: Patient is a 56 year old [place] speaking male who presented to [facility] under the influence of alcohol. This video game script writer met with patient to discuss alcohol use and treatment options. Patient reports he previously went to [facility] and found it helpful. Patient also reports he has successfully detoxed at home. This video game script writer found ATS bed for patient however due to insurance he would have to pay a $5000 deductible before insurance covered a portion of his treatment. Patient reports he is not able to go to treatment due to this. Discussed the dangers of alcohol withdrawal and the ability to apply for zero interest loan for treatment. Patient is requesting discharge. Discussed with ED provider. Plan for patient to have friend pick him up. Resources and contact information for this video game script writer provided.
[2021-10-16 17:59] VITALS: BP 128/80; PULSE 123; RESP 16; TEMP 36.7; O2SAT 95
== END 2021-10-16 18:20 | disposition home or self-care (01) ==
PROVIDERS: Emergency Provider Emergency Medicine
DX: F10.120 Alcohol abuse with intoxication, uncomplicated (principal); Y90.8 Blood alcohol level of 240 mg/100 ml or more; I10 Essential (primary) hypertension; F41.9 Anxiety disorder, unspecified; F31.9 Bipolar disorder, unspecified; Z87.891 Personal history of nicotine dependence; Z79.899 Other long term (current) drug therapy
CPT/HCPCS: 80048; 80076; 82077; 85025; 87635; 96372; 99284

== ENCOUNTER → 2021-10-22 08:59 | Outpatient (BNVA) | payer OTHER, SELFPAY | PROVIDERS: Visit Provider Surgery | DX: L02.411 Cutaneous abscess of right axilla (principal) | CPT/HCPCS: 10060; 10061 ==

== ENCOUNTER 2021-10-22 17:25 | Inpatient (IN) | payer OTHER, SELFPAY ==
--- NOTE | ~2021-10-22 | CT_ITS ---
EXAMINATION: CT HEAD WITHOUT CONTRAST CLINICAL INFORMATION: Severe headache. COMPARISON: CT head 01/24/2014 TECHNIQUE: Contiguous axial imaging was performed from the skull base to vertex without intravenous administration of contrast. Coronal and sagittal reformatted images are performed at the CT scanner. [This CT examination was performed using dose optimization techniques as appropriate, variously including the following: *Automated exposure control *Adjustment of mA and/or kV according to patient size (this includes techniques or standardized protocols for targeted exams where dose is matched to indication/reason for exam; i.e. extremities or head) *Use of iterative reconstruction technique] DLP: 801 mGy-cm. FINDINGS: There is no evidence of acute intracranial hemorrhage or territorial infarction. No abnormal mass-effect or midline shift is seen. Wilson to white matter differentiation is well preserved. No extra-axial fluid collections are identified. The ventricles are normal in size. Physiologic mineralization basal ganglia bilaterally. There is no osseous abnormality. The mastoid air cells and visualized portions of the paranasal sinuses are well-aerated. CT/CT head/brain wo con IMPRESSION: No acute intracranial pathology.
[2021-10-22 18:17] VITALS: BP 158/87; PULSE 122; RESP 22; TEMP 39.4; O2SAT 98; BMI 31.3
--- NOTE | 2021-10-22 18:19 | ECG_ITS ---
Test Reason : possible infection Blood Pressure : / mmHG Vent. Rate : 123 BPM Atrial Rate : 123 BPM P-R Int : 152 ms QRS Dur : 084 ms QT Int : 306 ms P-R-T Axes : 009 096 007 degrees QTc Int : 438 ms Sinus tachycardia Rightward axis Possible Anterior infarct , age undetermined Abnormal ECG When compared with ECG of 13-OCT-2021 00:52, No significant change was found Referred By: Generic ED Physician Electronically Signed By:ISRA HERNANDEZ MD
[2021-10-22 18:34] LABS: Hematocrit 37.9 % (42.0-52.0); Hemoglobin 13.3 g/dl (14.0-18.0); Mean Corpuscular HGB Conc 35.1 g/dl (31.0-36.0); Mean Corpuscular Hemoglobin 31.1 pg (27.0-33.0); Mean Corpuscular Volume 88.6 fL (80.0-98.0); Mean Platelet Volume 9.3 fL (9.4-12.4); NRBC Pct Auto 0.3 /100WBC (0.0-0.2); Platelet Count 137 X10*3/uL (160-400); Red Blood Count 4.28 X10*6/uL (4.60-5.80); Red Cell Distribution Width 13.2 % (11.0-16.0); White Blood Count 7.6 X10*3/uL (4.8-10.8)
--- NOTE | 2021-10-22 18:48 | ED_ITS ---
HPI - General Adult General Chief complaint: General Medical Stated complaint: abscess removed today c/o fever 103 Time Seen by Provider: 10/22/21 18:34 Source: patient Mode of arrival: ambulatory Limitations: no limitations History of Present Illness HPI narrative: This is a 56-year-old male past medical history significant for alcohol use disorder, major depression, abscess of right axilla drain today by Dr. Wadsworth. Presenting with fever, malaise, fatigue, severe headache. Patient tells me that he had a pimple like structure to his right axilla, it progressively worsened over time with drainage, pain and tenderness, he was initially seen at Urgent Care then he was advised to go see General surgery, the abscess was drained. He was not discharged on antibiotics however, he recently finished a course of antibiotics from Urgent Care. He tells me he suddenly started experiencing fevers, chills, malise, fatigue. He also tells me he is experiencing a severe frontal headache, he tells me he is not prone to headaches that he never gets them, denies dizziness or vision. No vission changes. Not anticoagulated. Related Data Home Medications Medication Instructions Recorded Confirmed labetalol 300 mg tablet 1 tab PO BID 09/23/21 10/22/21 metformin 500 mg tablet 1 tab PO BID 09/23/21 10/22/21 rosuvastatin 10 mg tablet 1 tab PO DAILY 09/23/21 10/22/21 Previous Rx's Medication Instructions Recorded fluoxetine 20 mg capsule 20 mg PO DAILY #30 caps 09/28/21 folic acid 1 mg tablet 1 mg PO DAILY #30 tabs 09/28/21 hydroxyzine HCl 25 mg tablet 25 mg PO Q6H PRN Anxiety #30 tabs 09/28/21 naltrexone 50 mg tablet 50 mg PO DAILY #30 tabs 09/28/21 omeprazole 40 mg capsule,delayed 40 mg PO DAILY@0630 #30 caps 09/28/21 release quetiapine 50 mg tablet 50 mg PO TID PRN sleep, anxiety 09/28/21 #60 tabs trazodone 100 mg tablet 200 mg PO BEDTIME #30 tabs 09/28/21 lorazepam 2 mg tablet 2 mg PO TID PRN alcohol withdrawal 10/13/21 #12 tabs ondansetron 4 mg disintegrating 4 mg PO Q6H PRN nausea and 10/13/21 tablet vomiting #10 tabs amoxicillin-potassium clavulanate 1 tab PO BID 7 days #14 tabs 10/15/21 1,000 mg-62.5 mg tablet,ext.rel 12hr (Augmentin XR) diclofenac sodium 75 mg 75 mg PO BID PRN pain 30 days #30 10/15/21 tablet,delayed release tabs chlordiazepoxide HCl 25 mg capsule 25 mg PO TID PRN alcohol 10/16/21 withdrawal #9 caps Allergies Allergy/AdvReac Type Severity Reaction Status Date / Time No Known Allergies Allergy Verified 10/22/21 09:08 [No Known Allergies*] Review of Systems Review of Systems: Constitutional : No Weight loss, + Fever, + Chills, + Fatigue, + Malaise ENT/Mouth : No sore throat, No Rhinorrhea Eyes: No Eye Pain, No Swelling, No Redness Cardiovascular : No Chest Pain, No SOB, No Dyspnea on Exertion, No Orthopnea, No Edema, No Palpitations Respiratory : No Cough, No Sputum, No Wheezing Gastrointestinal : No Nausea, No Vomiting, No Diarrhea, No Constipation, No abdominal Pain, No Hematochezia, No Melena Genitourinary : No Dysuria, No Urinary Frequency, No Hematuria, Musculoskeletal : No joint pain, No Myalgias, No Joint Swelling Skin : No Skin Lesions, No rash Neuro : No Weakness, No Numbness, No Dizziness, No Headache Psych : No Anxiety/Panic, No Depression All other systems reviewed and are negative Yes all other systems are reviewed and are negative [facility] Past Medical History Attestation statement: The following information was validated with the patient. Source: old records reviewed and nursing notes reviewed Medical History Abdominal pain Acute hepatitis Alcohol dependence Alcohol withdrawal Anxiety Benign essential hypertension Bipolar depression Diabetes mellitus GERD without esophagitis History of alcoholic hepatitis HTN (hypertension) Mixed hyperlipidemia Obesity (BMI 30-39.9) Other bursal cyst, left ankle and foot Other cyst of bone, left hand Surgical History No pertinent past surgical history Family History Family History Father Advanced cirrhosis of liver Alcoholic cirrhosis Substance use disorder Mother Dementia Maternal Grandfather Substance use disorder Sister Substance use disorder Social History Social History Household Members: Significant Other Housing: Apartment Do you presently have visiting nurse or other home services: No Alcohol intake: former Patient Tobacco Use Status: Former Tobacco user Tobacco use type: Cigarette Years Smoked: quit 10 years ago e-Cigarette/Vaping Use: Never Used Second Hand Smoke Exposure: No Use of substances other than those prescribed or required for medical reasons: No Advance Directives: No service: No 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 Cognitive needs: No Hearing needs: No Vision needs: No Physical Exam ED Vital Signs: Vital Signs - 24 hr 10/22/21 18:17 10/22/21 19:27 10/22/21 20:06 Temperature 103 F H 99.3 F Pulse Rate 122 H 108 H 99 Respiratory Rate 22 H 16 14 Blood Pressure 158/87 H 134/72 116/68 Pulse Oximetry 98 99 96 Oxygen Delivery Method Room Air Room Air Room Air BMI result Body Mass Index 31.3 tachycardic, tachypnea, febrile. Appearance: Alert.? Oriented X3.? No acute distress.? Head: Normocephalic, atraumatic, no step-offs or deformities Eyes: Pupils equal, round and reactive to light.? ENT: Pharynx normal.? Neck: Normal inspection.? Neck supple.? CVS: Normal heart rate and rhythm.? Pulses normal.? Respiratory: No respiratory distress.? Breath sounds normal.? Abdomen: Soft and nontender.? Skin: Skin warm and dry.? Normal skin color.? Normal skin turgor.? Extremities: No lower extremity edema.? No calf ttp. 5/5 strength to bilateral upper and lower extremities Back: No midline tenderness, no C-spine tenderness, full range of motion, no CVA tenderness bilaterally Neuro: Oriented X 3.? No motor deficit.? No sensory deficit. CN 2-12 intact Course Reevaluation(s) Reevaluation #1: Patients last drink was tuesday. CBC appears to be around patient's baseline. Platelets chronically low. Chemistry with no acute electrolyte abnormalities requiring intervention, his lactic acid is 2.2 however patient is on metformin but I do suspect infection to right axilla. Ethanol less than 10. Consistent with patient's last drink being on Tuesday. Flu/COVID/RSV pending. Time: 20:18 Reevaluation #2: Discuss this case with hospitalist, patient will be admitted for IV antibiotics since patient failed outpatient p.o. antibiotics. Time: 21:45 Medical Decision Making [facility] Narrative Medical decision making narrative: 1901 56-year-old male presenting with tachycardia, tachypnea, febrile, patient tells me he had an incision and drainage done earlier today she by Dr. Wadsworth. Tells me he started not feeling well after the he felt warm, jittery. Physical exam patient is diaphoretic, regular rate fast rhythm likely sinus tachycardia. Lungs clear. There is a indurated area underneath the right axilla with some overlying cellulitis, pain to palpation to the site. It is actively draining yellow/white purulence fluid. Vital signs significant for fever, tachypnea and tachycardia Upon chart review patient has a substantial history of alcohol use disorder, will rule out infection however this is likely alcohol withdrawal. Will also rule out flu/COVID/RSV. [facility] Plan-patient meeting SIRS criteria therefore fluids and antibiotics will be ordered. Will wait to order the 30 cc/kilos bolus until all labs have resulted as he is not meeting severe sepsis criteria at this time. Medical Records Medical records reviewed: Yes I reviewed the patient's medical records. Lab Data Lab results reviewed: Yes I reviewed the patient's lab results. Result diagrams: 10/22/21 18:23 10/22/21 18:23 Labs: Lab Results 10/22/21 10/22/21 10/22/21 Range/Units 18:23 18:23 18:23 WBC 7.6 (4.8-10.8) X10*3/uL RBC 4.28 L (4.60-5.80) X10*6/uL Hgb 13.3 L (14.0-18.0) g/dl Hct 37.9 L (42.0-52.0) % MCV 88.6 (80.0-98.0) fL MCH 31.1 (27.0-33.0) pg MCHC 35.1 (31.0-36.0) g/dl RDW 13.2 (11.0-16.0) % Plt Count 137 L D (160-400) X10*3/uL MPV 9.3 L (9.4-12.4) fL Absolute Nucleated RBC 0.020 H (0.0-0.012) X10*3/uL Nucleated RBC % (auto) 0.3 H (0.0-0.2) /100WBC Sodium 135 (135-145) mmol/L Potassium 4.3 (3.3-5.1) mmol/L Chloride 98 (96-108) mmol/L Carbon Dioxide 25 (22-29) mmol/L Anion Gap 16 (12-20) BUN 18 H D (9-16) mg/dL Creatinine 0.92 (0.5-1.4) mg/dL Estim Creat Clear Calc 98.6 Estimated GFR > 60 Random Glucose 163 H (60-115) mg/dL Lactic Acid (0.5-2.0) mmol/L Calcium 9.0 (8.4-10.2) mg/dL Troponin I High Sens 14.0 D (<3.5-35.0) ng/L Ethyl Alcohol < 10 mg/dL 10/22/21 Range/Units 18:59 WBC (4.8-10.8) X10*3/uL RBC (4.60-5.80) X10*6/uL Hgb (14.0-18.0) g/dl Hct (42.0-52.0) % MCV (80.0-98.0) fL MCH (27.0-33.0) pg MCHC (31.0-36.0) g/dl RDW (11.0-16.0) % Plt Count (160-400) X10*3/uL MPV (9.4-12.4) fL Absolute Nucleated RBC (0.0-0.012) X10*3/uL Nucleated RBC % (auto) (0.0-0.2) /100WBC Sodium (135-145) mmol/L Potassium (3.3-5.1) mmol/L Chloride (96-108) mmol/L Carbon Dioxide (22-29) mmol/L Anion Gap (12-20) BUN (9-16) mg/dL Creatinine (0.5-1.4) mg/dL Estim Creat Clear Calc Estimated GFR Random Glucose (60-115) mg/dL Lactic Acid 2.2 H* (0.5-2.0) mmol/L Calcium (8.4-10.2) mg/dL Troponin I High Sens (<3.5-35.0) ng/L Ethyl Alcohol mg/dL Critical Care Time Critical Care Time Critical Care Time: No Discharge Plan Discharge Clinical Impression: Cellulitis Patient Disposition: Admitted As Inpatient Prescriptions: No Action ondansetron 4 mg tablet,disintegrating 4 mg PO Q6H PRN (Reason: nausea and vomiting) Qty: 10 0RF lorazepam 2 mg tablet 2 mg PO TID PRN (Reason: alcohol withdrawal) Qty: 12 0RF metformin 500 mg tablet 1 tab PO BID rosuvastatin 10 mg tablet 1 tab PO DAILY labetalol 300 mg tablet 1 tab PO BID naltrexone 50 mg Tablet 50 mg PO DAILY Qty: 30 0RF omeprazole 40 mg Capsule,Delayed Release(Dr/Ec) 40 mg PO DAILY@0630 Qty: 30 0RF trazodone 100 mg Tablet 200 mg PO BEDTIME Qty: 30 1RF folic acid 1 mg Tablet 1 mg PO DAILY Qty: 30 0RF hydroxyzine HCl 25 mg Tablet 25 mg PO Q6H PRN (Reason: Anxiety) Qty: 30 0RF fluoxetine 20 mg Capsule 20 mg PO DAILY Qty: 30 0RF quetiapine 50 mg Tablet 50 mg PO TID PRN (Reason: sleep, anxiety) Qty: 60 0RF chlordiazepoxide HCl 25 mg capsule 25 mg PO TID PRN (Reason: alcohol withdrawal) Qty: 9 0RF diclofenac sodium 75 mg tablet,delayed release (DR/EC) 75 mg PO BID PRN (Reason: pain) 30 Days Qty: 30 0RF Rx Instructions: take it with food amoxicillin-pot clavulanate [Augmentin XR] 1,000-62.5 mg tablet extended release 12 hr 1 tab PO BID 7 Days Qty: 14 0RF
[2021-10-22 18:49] LABS: Anion Gap 16 (12-20); Blood Urea Nitrogen 18 mg/dL (9-16); Carbon Dioxide 25 mmol/L (22-29); Chloride 98 mmol/L (96-108); Creatinine Clr Calc Pharmacy 98.6; Estimated Glomerular Filt Rate > 60; Glucose Random 163 mg/dL (60-115); Potassium 4.3 mmol/L (3.3-5.1); Sodium 135 mmol/L (135-145)
[2021-10-22] MEDS: chlordiazePOXIDE HCl 25 MG CAPSULE 50 MG PO (19:09)
[2021-10-22] MEDS: cefTRIAXone sodium 1 GM in 0.9 % Sodium Chloride 50 ML IV (19:15)
[2021-10-22] MEDS: 0.9 % Sodium Chloride 1,000 ML 999 ML IV ×2 (19:15)
[2021-10-22 19:25] LABS: Ethanol < 10 mg/dL
[2021-10-22 19:27] VITALS: BP 134/72; PULSE 108; RESP 16; O2SAT 99
[2021-10-22 19:29] LABS: Lactic Acid 2.2 mmol/L (0.5-2.0)
[2021-10-22 19:59] LABS: Influenza A PCR NEGATIVE (Negative); Influenza B PCR NEGATIVE (Negative); Resp Syncy Virus RNA Qual PCR NEGATIVE (Negative); SARS COV2 PCR INHOUSE NEGATIVE (Negative)
[2021-10-22 20:06] VITALS: BP 116/68; PULSE 99; RESP 14; TEMP 37.4; O2SAT 96
[2021-10-22] MEDS: Morphine Sulfate 2 MG/ML CARTRIDGE IVPUSH (20:53)
[2021-10-22 21:02] LABS: Reflex Lactate? Lactic Acid Added
[2021-10-22 21:45] LABS: ~Lactic Acid-LAB USE ONLY 1.6 mmol/L (0.5-2.0)
--- NOTE | 2021-10-22 21:46 | PC.NURSE ---
this RN assist pt with dressing change on I&D abscess in right axilla
--- NOTE | 2021-10-22 22:10 | PHA.MEDREC ---
Pharmacy Consult ? Medication Reconciliation Pharmacy has completed the medication reconciliation.
--- NOTE | 2021-10-22 22:32 | PM.IMHP ---
History of Present Illness Date of Service: 10/22/21 Chief Complaint: abscess 56-year-old male with past medical history of anxiety, HTN, bipolar depression, diabetes, HLD, history of alcohol abuse who presents to the hospital with complaints of an abscess under his right armpit. Patient reports that it started as a pea size lump under his armpit about a week ago, he was seen at urgent care and was given Augmentin for 7 days which he almost has completed, the abscess continued to grow and became the size of a golf ball therefore was referred to surgery by urgent care. Patient underwent I&D on the a.m. of ED presentation. He reports that once he got home he was doing well but several hours later he developed severe pain, drainage, occult surgical office and was asked to come to the ED instead. Patient reports that he had a fever of 103 at home, he has chills, he denies any chest pain, no shortness of breath, no abdominal pain nausea or vomiting, no diarrhea constipation, no urinary symptoms and no lower extremity edema. On arrival to the ED patient vitals are significant for temperature of 103 degrees, heart rate of 122, respiratory rate of 22, blood pressure 158/87 Labs are significant for WBC count of 7.6, hemoglobin of 13.3, hematocrit 37.9, lactic acid of 2.2, Patient met SIRS criteria, started on IV antibiotics and will be admitted for further management Review of Systems Review of Systems: Yes all other systems are reviewed and are negative [facility] Medical History Abdominal pain Acute hepatitis Alcohol dependence Alcohol withdrawal Anxiety Benign essential hypertension Bipolar depression Diabetes mellitus GERD without esophagitis History of alcoholic hepatitis HTN (hypertension) Mixed hyperlipidemia Obesity (BMI 30-39.9) Other bursal cyst, left ankle and foot Other cyst of bone, left hand Family History Father Advanced cirrhosis of liver Alcoholic cirrhosis Substance use disorder Mother Dementia Maternal Grandfather Substance use disorder Sister Substance use disorder Surgical History No pertinent past surgical history Social History Household Members: Significant Other Housing: Apartment Do you presently have visiting nurse or other home services: No Alcohol intake: former Patient Tobacco Use Status: Former Tobacco user Tobacco use type: Cigarette Years Smoked: quit 10 years ago e-Cigarette/Vaping Use: Never Used Second Hand Smoke Exposure: No Use of substances other than those prescribed or required for medical reasons: No Advance Directives: No service: No 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 Cognitive needs: No Hearing needs: No Vision needs: No Meds Allergies Allergy/AdvReac Type Severity Reaction Status Date / Time No Known Allergies Allergy Verified 10/22/21 09:08 [No Known Allergies*] Home Medications Medication Instructions Recorded Confirmed Last Taken Type labetalol 300 mg tablet 1 tab PO BID 09/23/21 10/22/21 10/22/21 09:00 History metformin 500 mg tablet 1 tab PO BID 09/23/21 10/22/21 10/22/21 09:00 History rosuvastatin 10 mg tablet 1 tab PO DAILY 09/23/21 10/22/21 10/22/21 09:00 History Physical Exam Vital Signs and Narrative: Vital Signs: Last Vital Signs Temp 99.3 F 10/22/21 20:06 Pulse 99 10/22/21 20:06 Resp 14 10/22/21 20:06 BP 116/68 10/22/21 20:06 Pulse Ox 96 10/22/21 20:06 O2 Del Method 10/22/21 20:06 BMI result Body Mass Index 31.3 Const: General: cooperative and no acute distress Orientation/consciousness: patient oriented x3 Eyes: General: appearance normal, both eyes and all related structures Resp: Effort & Inspection: normal respiratory effort Auscultation: clear to auscultation bilaterally Cardio: Rate: regular rate Rhythm: regular rhythm GI: Palpation (GI): Soft to palpation Auscultation: normal bowel sounds Skin: Other: Right axillary abscess with active drainage, significant warmth and tenderness, minimal erythema Neuro: General: patient oriented x3 Cognition (Neuro): normal cognition Extrem: Other: Right axillary abscess with active drainage warmth, tenderness, General: Yes no pedal edema Results Labs CBC and Chem 7: 10/22/21 18:23 10/22/21 18:23 Labs: Laboratory Results - last 24 hr 10/22/21 10/22/21 10/22/21 18:23 18:23 18:23 MCV 88.6 MCH 31.1 MCHC 35.1 RDW 13.2 Plt Count 137 L D MPV 9.3 L Absolute Nucleated RBC 0.020 H Nucleated RBC % (auto) 0.3 H Anion Gap 16 Estim Creat Clear Calc 98.6 Estimated GFR > 60 Random Glucose 163 H Lactic Acid Lactic Acid F/U @ 2Hr Calcium 9.0 Troponin I High Sens 14.0 D Ethyl Alcohol < 10 10/22/21 10/22/21 18:59 21:27 MCV MCH MCHC RDW Plt Count MPV Absolute Nucleated RBC Nucleated RBC % (auto) Anion Gap Estim Creat Clear Calc Estimated GFR Random Glucose Lactic Acid 2.2 H* Lactic Acid F/U @ 2Hr 1.6 Calcium Troponin I High Sens Ethyl Alcohol Imaging Radiologist's Impressions: Impressions Head CT 10/22/21 20:30 IMPRESSION: No acute intracranial pathology. Assessment and Plan (1) Sepsis: Status: Acute (2) Cellulitis: Status: Acute (3) Abscess of axilla, right: Status: Acute (4) Alcohol use disorder, moderate, dependence: Status: Acute Plan 56-year-old male with past medical history of alcohol abuse, HTN, bipolar disorder, who presents to the hospital with complaints of worsening symptoms of abscess post I&D # sepsis - does not on arrival - patient tachycardic, tachypneic, febrile, - likely source abscess/cellulitis - treat with IV antibiotics - follow cultures # abscess of right axilla/cellulitis - patient underwent I&D on morning of 10/22 - developed fever, tachycardia, tachypnea on arrival to the ED with evidence of sepsis - at this time will treat with IV antibiotics patient failed p.o. - follow cultures # alcohol abuse - no evidence of withdrawal as his last drink was Tuesday and was on Librium at home - will place on folic acid and thiamine - monitor for symptoms # HTN - continue labetalol DVT prophylaxis: Lovenox Given failed outpatient therapy, sepsis, need for IV antibiotics patient will require minimal 2 night hospital stay for further management and monitoring Quality Stroke Does the patient have a stroke diagnosis?: No VTE Prior VTE?: No VTE Risk Level:: Medical - moderate - high VTE Device Contraindication: Treatment Not Indicated VTE Drug Contraindication: N/A - Med Ordered
--- NOTE | 2021-10-22 22:44 | PHA.PROG ---
Admission Date/Time: October 22, 2021 22:29 Indication: Skin and soft tissue Weight in k.718 kg Adjusted body weight in Kg: [place] body weight in Kg: Obesity Dosing Indication % IBW: 37% Serum Creatinine - Last 168 Hours 10/22/21 18:23 Creatinine 0.92 Estimated CrCl and GFR - Last 168 Hours 10/22/21 18:23 Estim Creat Clear Calc 98.6 Estimated GFR > 60 Vancomycin Loading Dose: 2000mg X 1 Current Vancomycin Dosing Regimen: 1000mg Q12H Vancomycin Monitoring using AUC goal of 400 - 600 range with trough as surrogate marker: 538mg/L Date and Time for next Vancomycin Level to be drawn: 10/24/21 @0900 Pharmacist Comments on Vancomycin Plan: obesity model being used, will continue to monitor renal function Vancomycin dosing will take advantage of [employer] as a clinical decision support tool that uses Bayesian modeling to calculate individual patient's pharmacokinetic parameters and forecast the patient's drug concentration time course with the target goal AUC 24 range of 400 - 600 mg/L/hr.
[2021-10-22] MEDS: Lactated Ringers 1,000 ML 100 ML IVCONT (22:57)
[2021-10-22] MEDS: Piperacillin Sodium/Tazobactam 3.375 GM in 0.9 % Sodium Chloride 50 ML IV (23:02)
[2021-10-22 23:36] VITALS: BP 115/73; PULSE 95; RESP 18; O2SAT 96
[2021-10-22] MEDS: traZODone HCL 100 MG TABLET 200 MG PO (23:51)
[2021-10-22] MEDS: ondansetron HCL 4 MG/2 ML VIAL IVPUSH (23:51)
[2021-10-22 23:54] VITALS: BP 121/76; PULSE 91; RESP 21; TEMP 37.5; O2SAT 96
[2021-10-23] MEDS: oxyCODONE HCl Immed Release 5 MG TABLET PO ×4 (01:29→22:01)
[2021-10-23] MEDS: Piperacillin Sodium/Tazobactam 3.375 GM in 0.9 % Sodium Chloride 50 ML IV (05:22)
[2021-10-23 05:23] VITALS: BP 113/72; PULSE 91; RESP 20; TEMP 38; O2SAT 93
[2021-10-23] MEDS: Acetaminophen 325 MG TABLET 650 MG PO ×4 (05:24→22:00)
[2021-10-23 06:46] LABS: MANUAL DIFF FLAG NO
[2021-10-23 06:51] LABS: Basophils Percent Auto 0.4 % (0-2); Eosinophils Percent Auto 0.5 % (0-4); Hematocrit 33.3 % (42.0-52.0); Hemoglobin 11.5 g/dl (14.0-18.0); Imm Gran Abs Auto 0.16 X10*3/uL (0.00-0.03); Imm Gran Pct Auto 2.8 % (0.0-0.4); Lymphocytes Absolute Auto 0.9 X10*3/uL (1.2-4.9); Lymphocytes Percent Auto 16.5 % (20-40); Mean Corpuscular HGB Conc 34.5 g/dl (31.0-36.0); Mean Corpuscular Hemoglobin 31.8 pg (27.0-33.0); Mean Platelet Volume 9.8 fL (9.4-12.4); Monocytes Absolute Auto 0.6 X10*3/uL (0.1-1.2); Monocytes Percent Auto 10.4 % (2-11); Neutrophils Percent Auto 69.4 % (45-73); Platelet Count 109 X10*3/uL (160-400); Red Blood Count 3.62 X10*6/uL (4.60-5.80); Red Cell Distribution Width 13.4 % (11.0-16.0); White Blood Count 5.7 X10*3/uL (4.8-10.8)
--- NOTE | 2021-10-23 07:19 | PHA.MEDREC ---
Pharmacy Consult ? Medication Reconciliation Pharmacy has completed the medication reconciliation. Reviewed med rec done by nurse
[2021-10-23 07:24] LABS: Anion Gap 13 (12-20); Blood Urea Nitrogen 13 mg/dL (9-16); Calcium 8.3 mg/dL (8.4-10.2); Carbon Dioxide 27 mmol/L (22-29); Chloride 103 mmol/L (96-108); Creatinine Clr Calc Pharmacy 105.4; Estimated Glomerular Filt Rate > 60; Glucose Random 145 mg/dL (60-115); Potassium 3.7 mmol/L (3.3-5.1); Sodium 139 mmol/L (135-145)
[2021-10-23 08:12] LABS: Estimated Average Glucose 137 mg/dL; Hemoglobin A1c % 6.4 %
[2021-10-23] MEDS: Labetalol HCL 100 MG TABLET 300 MG PO ×2 (08:22→20:31)
[2021-10-23] MEDS: Atorvastatin Calcium 40 MG TABLET PO (08:23)
[2021-10-23] MEDS: Lactated Ringers 1,000 ML 100 ML IVCONT ×2 (08:37→18:54)
--- NOTE | 2021-10-23 09:17 | HE.PHANOTE ---
[facility] [facility] CONTINUE CURRENT DOSE, NEXT TROUGH DUE 10/24@0900
[2021-10-23 09:58] LABS: Troponin-I High Sensitivity 11.2 ng/L (<3.5-35.0)
--- NOTE | 2021-10-23 10:23 | HO.PM.IMPN ---
Subjective Subjective Date of Service: 10/23/21 Interval History: R axilla painful but improved low-grade temp elev to 100.4 this AM some chills Review of Systems Review of Systems: Yes all other systems are reviewed and are negative Physical Exam Vital Signs: Vital Signs: Last Vital Signs Temp 100.4 F 10/23/21 05:23 Pulse 91 10/23/21 05:23 Resp 20 10/23/21 05:23 BP 113/72 10/23/21 05:23 Pulse Ox 93 10/23/21 05:23 O2 Del Method 10/23/21 05:23 BMI result Body Mass Index 31.3 Gen: in no acute distress HEENT: sclera anicteric, moist mucus membranes Neck: supple Lungs: clear to auscultation bilaterally Heart: regular rate and rhythm, no murmurs Abd: soft, non-tender, non-distended Ext: no edema Skin: warm/well-perfused, I+D site in R axilla with no residual purulence, moderate surrounding erythema + induration Neuro: alert and oriented x3, no focal findings Psych: appropriate affect Objective Data Active Medications Acetaminophen (Acetaminophen 325 Mg Tablet) 650 mg PO Q6H PRN PRN Reason: Pain, Mild (Pain Scale 1-3) Last Admin: 10/23/21 05:24 Dose: 650 mg Documented By: ROSIO Atorvastatin Calcium (Atorvastatin Calcium 40 Mg Tablet) 40 mg PO DAILY [facility] Last Admin: 10/23/21 08:23 Dose: 40 mg Documented By: CHAYITO Dextrose (Dextrose 50 % 25 Gm/50 Ml Syringe) 25 gm IVPUSH Q15M PRN; Protocol PRN Reason: per Hypoglycemia Standing Ord. Docusate Sodium (Docusate Sodium 100 Mg Capsule) 100 mg PO DAILY PRN PRN Reason: Constipation Enoxaparin Sodium (Enoxaparin Sodium 40 Mg/0.4 Ml Syringe) 40 mg SUBCUT Q24H [facility] Last Admin: 10/22/21 23:07 Dose: Not Given Documented By: ROSIO Non-Admin Reason: Patient Refused Glucose (Glucose Gel 15 Gm Gel..Gram.) 15 gm PO Q15M PRN; Protocol PRN Reason: per Hypoglycemia Standing Ord. Lactated Ringer's (Lr) 1,000 mls @ 100 mls/hr IVCONT .Q10H [facility] Last Admin: 10/23/21 08:37 Dose: 100 mls/hr Documented By: CHAYITO Vancomycin HCl 1,000 mg/ (Sodium Chloride) 270 mls @ 270 mls/hr IV Q12H [facility] Insulin Human Lispro (Insulin Lispro 100 Unit/Ml 3 Ml Vial) 0.1 - 10 unit SUBCUT QIDACHS [facility]; Protocol Last Admin: 10/23/21 08:35 Dose: Not Given Documented By: TRAVIS Non-Admin Reason: No Insulin Coverage Labetalol HCl (Labetalol Hcl 100 Mg Tablet) 300 mg PO BID [facility] Last Admin: 10/23/21 08:22 Dose: 300 mg Documented By: CHAYITO Omeprazole (Omeprazole 40 Mg Capsule.Dr) 40 mg PO DAILY@0630 [facility] Last Admin: 10/23/21 06:38 Dose: Not Given Documented By: ROSIO Non-Admin Reason: Patient Refused Ondansetron HCl (Ondansetron Hcl 4 Mg/2 Ml Vial) 4 mg IVPUSH Q8H PRN PRN Reason: Nausea and Vomiting Last Admin: 10/22/21 23:51 Dose: 4 mg Documented By: ROSIO Oxycodone HCl (Oxycodone Hcl Immed Release 5 Mg Tablet) 5 mg PO Q6H PRN PRN Reason: severe pain Pharmacy Consult (Consult Rx Vancomycin Dosing) 1 each MISCELLANE DAILY PRN PRN Reason: Consult order Sodium Chloride (0.9 % Sodium Chloride Flush 3 Ml Syringe) 3 ml IVFLUSH QSHIFT [facility] Last Admin: 10/23/21 07:03 Dose: Not Given Documented By: CHAYITO Non-Admin Reason: Med Not Available Trazodone HCl (Trazodone Hcl 100 Mg Tablet) 200 mg PO BEDTIME [facility] Last Admin: 10/22/21 23:51 Dose: 200 mg Documented By: ROSIO Labs CBC & Chem 7: 10/23/21 06:16 10/23/21 06:16 Labs: Laboratory Results - last 24 hr 10/22/21 10/22/21 10/22/21 18:23 18:23 18:23 MCV 88.6 MCH 31.1 MCHC 35.1 RDW 13.2 Plt Count 137 L D MPV 9.3 L Immature Gran % (Auto) Neut % (Auto) Lymph % (Auto) [place] % (Auto) Eos % (Auto) Baso % (Auto) Lymph # (Auto) [place] # (Auto) Eos # (Auto) Baso # (Auto) Abs Immat Gran (auto) Absolute Neuts (auto) Absolute Nucleated RBC 0.020 H Nucleated RBC % (auto) 0.3 H Anion Gap 16 Estim Creat Clear Calc 98.6 Estimated GFR > 60 Random Glucose 163 H Estimat Average Glucose Hemoglobin A1c % Lactic Acid Lactic Acid F/U @ 2Hr Calcium 9.0 Troponin I High Sens 14.0 D Ethyl Alcohol < 10 Influenza Type A (PCR) Influenza Type B (PCR) RSV RNA Qual (PCR) SARS-CoV-2 RNA (RT-PCR) 10/22/21 10/22/21 10/22/21 18:59 19:16 21:27 MCV MCH MCHC RDW Plt Count MPV Immature Gran % (Auto) Neut % (Auto) Lymph % (Auto) [place] % (Auto) Eos % (Auto) Baso % (Auto) Lymph # (Auto) [place] # (Auto) Eos # (Auto) Baso # (Auto) Abs Immat Gran (auto) Absolute Neuts (auto) Absolute Nucleated RBC Nucleated RBC % (auto) Anion Gap Estim Creat Clear Calc Estimated GFR Random Glucose Estimat Average Glucose Hemoglobin A1c % Lactic Acid 2.2 H* Lactic Acid F/U @ 2Hr 1.6 Calcium Troponin I High Sens Ethyl Alcohol Influenza Type A (PCR) NEGATIVE Influenza Type B (PCR) NEGATIVE RSV RNA Qual (PCR) NEGATIVE SARS-CoV-2 RNA (RT-PCR) NEGATIVE 10/23/21 10/23/21 10/23/21 06:16 06:16 06:16 MCV 92.0 MCH 31.8 MCHC 34.5 RDW 13.4 Plt Count 109 L MPV 9.8 Immature Gran % (Auto) 2.8 H Neut % (Auto) 69.4 Lymph % (Auto) 16.5 L [place] % (Auto) 10.4 Eos % (Auto) 0.5 Baso % (Auto) 0.4 Lymph # (Auto) 0.9 L [place] # (Auto) 0.6 Eos # (Auto) 0.0 Baso # (Auto) 0.0 Abs Immat Gran (auto) 0.16 H Absolute Neuts (auto) 4.0 Absolute Nucleated RBC 0.000 Nucleated RBC % (auto) 0.0 Anion Gap 13 Estim Creat Clear Calc 105.4 Estimated GFR > 60 Random Glucose 145 H Estimat Average Glucose 137 Hemoglobin A1c % 6.4 Lactic Acid Lactic Acid F/U @ 2Hr Calcium 8.3 L D Troponin I High Sens Ethyl Alcohol Influenza Type A (PCR) Influenza Type B (PCR) RSV RNA Qual (PCR) SARS-CoV-2 RNA (RT-PCR) 10/23/21 09:31 MCV MCH MCHC RDW Plt Count MPV Immature Gran % (Auto) Neut % (Auto) Lymph % (Auto) [place] % (Auto) Eos % (Auto) Baso % (Auto) Lymph # (Auto) [place] # (Auto) Eos # (Auto) Baso # (Auto) Abs Immat Gran (auto) Absolute Neuts (auto) Absolute Nucleated RBC Nucleated RBC % (auto) Anion Gap Estim Creat Clear Calc Estimated GFR Random Glucose Estimat Average Glucose Hemoglobin A1c % Lactic Acid Lactic Acid F/U @ 2Hr Calcium Troponin I High Sens 11.2 Ethyl Alcohol Influenza Type A (PCR) Influenza Type B (PCR) RSV RNA Qual (PCR) SARS-CoV-2 RNA (RT-PCR) Assessment and Plan (1) Sepsis: Status: Acute (2) Cellulitis: Status: Acute (3) Abscess of axilla, right: Status: Acute Plan hospital d#2 56yo M with hx alcohol abuse, HTN, DM2, bipolar disorder presented with severe pain and drainage after office I+D of R axillary abscess by Dr Wadsworth after 1 wk of amox/clav did not resolve the initial infection admitted for severe sepsis related to purulent cellulitis # purulent cellulitis - s/p I+D 10/22 in Gen Surg office; given no connection to PO or GI tract, will d/c pip/lianna and continue vancomycin alone d#2; also send wound Cx; suspect MRSA infection; follow BCx as well # severe sepsis - lactic acidosis normalized # HTN - labetalol # DM2 - correction-dose lispro; A1c 6.4 # HLD - continue statin # EtOH abuse - no evidence of withdrawal; monitor for symptoms; continue B-vitamins # VTE ppx: LMWH In my clinical judgment, the patient requires continued hospitalization for the following reasons: IV ABX Quality Stroke Does the patient have a stroke diagnosis?: No VTE Prior VTE?: No VTE Risk Level:: Medical - moderate - high VTE Device Contraindication: Treatment Not Indicated VTE Drug Contraindication: N/A - Med Ordered
[2021-10-23] MEDS: vancomycin HCL 1,000 MG in 0.9 % Sodium Chloride 250 ML 270 MG IV ×2 (10:28→22:00)
[2021-10-23 11:03] VITALS: BP 102/59; PULSE 75; RESP 20; TEMP 37.5; O2SAT 93
[2021-10-23 12:22] LABS: Glucose, Whole Blood 173 mg/dL (60-115)
[2021-10-23 12:24] VITALS: BP 119/64; PULSE 75; RESP 20; TEMP 36.8; O2SAT 94
--- NOTE | 2021-10-23 13:44 | P.CDIC_ITS ---
CDI Concurrent Query Documentation Clarification: PHYSICIAN'S DOCUMENTATION REQUEST Date of Query: 10/23/21 4294 Patient Name: Jose Miguel Juan Jr Admit Date: 10/22/21 Dear Doctor, A review of the medical record indicates additional documentation may be needed. Please review below and update the documentation accordingly. Risk Factors/Clinical Indicators/Treatments Per MD progress note 10/23/21: admitted for severe sepsis related to purulent cellulitis - s/p I+D 10/22 in Gen Surg office Treated with Vancomycin PMH: Diabetes Mellitus Please clarify the relationship between these conditions: * Yes, Cellulitis is related to / associated with / due to Diabetes Mellitus * No, Cellulitis is not related to / associated with / due to Diabetes Mellitus * Other * Unable to determine Use of terms such as suspected, likely, concern for, or probable (associated with a specific diagnosis that is being evaluated, monitored, or treated as if it exists) are acceptable and can be coded in the inpatient setting, when documented at the time of discharge. Thank you, Janny Guzman . RN Extension: [phone] Please use your independent medical judgment in providing your response. THIS QUERY IS PART OF THE PERMANENT MEDICAL RECORD Provider Response: Other Other Diagnosis:
[2021-10-23 14:45] LABS: Glucose, Whole Blood 165 mg/dL (60-115)
--- NOTE | 2021-10-23 16:10 | PC.NURSE ---
Assumed care of patient. Received report from Darya HEATH.
[2021-10-23 18:27] LABS: Glucose, Whole Blood 194 mg/dL (60-115)
[2021-10-23] MEDS: Insulin Lispro 100 UNIT/ML 3 ML VIAL SUBCUT ×2 (18:37→21:19)
[2021-10-23] MEDS: ondansetron HCL 4 MG/2 ML VIAL IVPUSH (19:14)
[2021-10-23] MEDS: traZODone HCL 100 MG TABLET 200 MG PO (20:30)
[2021-10-23 20:39] VITALS: BP 146/84; PULSE 92; RESP 19; TEMP 37.3; O2SAT 97
[2021-10-23 20:53] LABS: Glucose, Whole Blood 180 mg/dL (60-115)
--- NOTE | 2021-10-23 21:12 | PC.NURSE ---
Addendum entered by Heaven Noyola RN 10/23/21 21:42: Rectal temp 103.2 Dr. Franklin notified. tylenol previously given. Original Note: Patient c/o ? fever (temp 99.1), shaking, nausea, and right arm numbness tigered Dr. Franklin she is coming to see him. at bedside.
[2021-10-23 21:41] VITALS: TEMP 39.6
[2021-10-23] MEDS: LORazepam 0.5 MG TABLET PO (22:00)
[2021-10-23] MEDS: Enoxaparin Sodium 40 MG/0.4 ML SYRINGE SUBCUT (22:00)
[2021-10-23 22:22] LABS: Lactic Acid 1.9 mmol/L (0.5-2.0)
[2021-10-24] VITALS (8 sets, daily range): BP systolic 105–146; BP diastolic 71–86; PULSE 63–89; RESP 17–18; TEMP 36.1–37; O2SAT 92–97; BMI 31.2
[2021-10-24] MEDS: Lactated Ringers 1,000 ML 100 ML IVCONT ×2 (04:25→14:11)
[2021-10-24] MEDS: Omeprazole 40 MG CAPSULE.DR PO (06:21)
[2021-10-24 06:25] LABS: Creatinine Clr Calc Pharmacy 117.7; Estimated Glomerular Filt Rate > 60
[2021-10-24 07:20] LABS: Glucose, Whole Blood 134 mg/dL (60-115)
[2021-10-24] MEDS: Labetalol HCL 100 MG TABLET 300 MG PO ×2 (09:02→21:04)
[2021-10-24] MEDS: oxyCODONE HCl Immed Release 5 MG TABLET PO (09:02)
[2021-10-24] MEDS: Atorvastatin Calcium 40 MG TABLET PO (09:02)
[2021-10-24] MEDS: 0.9 % Sodium Chloride Flush 3 ML SYRINGE IVFLUSH ×2 (09:03→16:43)
--- NOTE | 2021-10-24 09:59 | P.PNIM_ITS ---
Subjective Subjective Date of Service: 10/24/21 Interval History: Febrile to 103.2 Anxiety/shakiness this AM, got 1 dose PO lorazepam R arm pain improved Review of Systems Review of Systems: Yes all other systems are reviewed and are negative Physical Exam Vital Signs: Vital Signs: Last Vital Signs Temp 97.9 F 10/24/21 07:10 Pulse 89 10/24/21 07:10 Resp 18 10/24/21 07:10 BP 129/83 10/24/21 07:10 Pulse Ox 92 10/24/21 07:10 O2 Del Method 10/24/21 07:10 BMI result Body Mass Index 31.2 Gen: tremulous HEENT: sclera anicteric, moist mucus membranes Neck: supple Lungs: clear to auscultation bilaterally Heart: regular rate and rhythm, no murmurs Abd: soft, non-tender, non-distended Ext: no edema Skin: warm/well-perfused, I+D site in R axilla with no residual purulence, moderate surrounding erythema + induration Neuro: alert and oriented x3, no focal findings Psych: appropriate affect Objective Data Active Medications Acetaminophen (Acetaminophen 325 Mg Tablet) 650 mg PO Q6H PRN PRN Reason: Pain, Mild (Pain Scale 1-3) Last Admin: 10/23/21 20:31 Dose: 650 mg Documented By: LUCAS Atorvastatin Calcium (Atorvastatin Calcium 40 Mg Tablet) 40 mg PO DAILY [facility] Last Admin: 10/24/21 09:02 Dose: 40 mg Documented By: KATHIE Dextrose (Dextrose 50 % 25 Gm/50 Ml Syringe) 25 gm IVPUSH Q15M PRN; Protocol PRN Reason: per Hypoglycemia Standing Ord. Docusate Sodium (Docusate Sodium 100 Mg Capsule) 100 mg PO DAILY PRN PRN Reason: Constipation Enoxaparin Sodium (Enoxaparin Sodium 40 Mg/0.4 Ml Syringe) 40 mg SUBCUT Q24H [facility] Last Admin: 10/23/21 22:00 Dose: 40 mg Documented By: LEIDA Glucose (Glucose Gel 15 Gm Gel..Gram.) 15 gm PO Q15M PRN; Protocol PRN Reason: per Hypoglycemia Standing Ord. Lactated Ringer's (Lr) 1,000 mls @ 100 mls/hr IVCONT .Q10H [facility] Last Admin: 10/24/21 04:25 Dose: 100 mls/hr Documented By: ZA Vancomycin HCl 1,000 mg/ (Sodium Chloride) 270 mls @ 270 mls/hr IV Q12H [facility] Last Infusion: 10/24/21 03:29 Dose: 0 mls/hr Documented By: LEIDA Insulin Human Lispro (Insulin Lispro 100 Unit/Ml 3 Ml Vial) 0.1 - 10 unit SUBCUT QIDACHS [facility]; Protocol Last Admin: 10/24/21 08:55 Dose: Not Given Documented By: KATHIE Non-Admin Reason: Patient Refused Labetalol HCl (Labetalol Hcl 100 Mg Tablet) 300 mg PO BID [facility] Last Admin: 10/24/21 09:02 Dose: 300 mg Documented By: KATHIE Omeprazole (Omeprazole 40 Mg Capsule.Dr) 40 mg PO DAILY@0630 [facility] Last Admin: 10/24/21 06:21 Dose: 40 mg Documented By: ZA Ondansetron HCl (Ondansetron Hcl 4 Mg/2 Ml Vial) 4 mg IVPUSH Q8H PRN PRN Reason: Nausea and Vomiting Last Admin: 10/23/21 19:14 Dose: 4 mg Documented By: LUCAS Oxycodone HCl (Oxycodone Hcl Immed Release 5 Mg Tablet) 5 mg PO Q6H PRN PRN Reason: severe pain Last Admin: 10/24/21 09:02 Dose: 5 mg Documented By: KATHIE Pharmacy Consult (Consult Rx Vancomycin Dosing) 1 each MISCELLANE DAILY PRN PRN Reason: Consult order Sodium Chloride (0.9 % Sodium Chloride Flush 3 Ml Syringe) 3 ml IVFLUSH QSHIFT [facility] Last Admin: 10/24/21 09:03 Dose: 3 ml Documented By: KATHIE Trazodone HCl (Trazodone Hcl 100 Mg Tablet) 200 mg PO BEDTIME [facility] Last Admin: 10/23/21 20:30 Dose: 200 mg Documented By: LUCAS Labs CBC & Chem 7: 10/23/21 06:16 10/24/21 05:56 Labs: Laboratory Results - last 24 hr 10/23/21 10/23/21 10/23/21 09:31 12:18 13:31 Estim Creat Clear Calc Estimated GFR POC Glucose 173 H 165 H Lactic Acid Troponin I High Sens 11.2 10/23/21 10/23/21 10/23/21 18:24 20:49 21:55 Estim Creat Clear Calc Estimated GFR POC Glucose 194 H 180 H Lactic Acid 1.9 Troponin I High Sens 10/24/21 10/24/21 05:56 07:15 Estim Creat Clear Calc 117.7 Estimated GFR > 60 POC Glucose 134 H Lactic Acid Troponin I High Sens Preliminary micro results at discharge 10/23/21 10:24 Routine Culture - Preliminary Axilla Right Staphylococcus aureus 10/22/21 18:59 Blood Culture - Preliminary Blood - Venous No growth after 24 hours. 10/22/21 18:51 Blood Culture - Preliminary Blood - Venous No growth after 24 hours. Microbiology Microbiology Results: Microbiology 10/23/21 10:24 Gram Stain - Final Axilla Right Routine Culture - Preliminary Staphylococcus aureus 10/22/21 18:59 Blood Culture - Preliminary Blood - Venous No growth after 24 hours. 10/22/21 18:51 Blood Culture - Preliminary Blood - Venous No growth after 24 hours. Assessment and Plan (1) Sepsis: Status: Acute (2) Cellulitis: Status: Acute (3) Abscess of axilla, right: Status: Acute Plan hospital d#3 56yo M with hx AUD, HTN, DM2, bipolar disorder presented with severe pain and drainage after office I+D of R axillary abscess by Dr Wadsworth after 1 wk of amox/clav did not resolve the initial infection admitted for severe sepsis related to purulent cellulitis # purulent cellulitis - s/p I+D 10/22 in Gen Surg office; continue vancomycin alone d#3; wound Cx growing St. aureus, follow-up methicillin resistance status, follow BCx # severe sepsis - lactic acidosis normalized # HTN - labetalol # EtOH withdrawal - got lorzepam overnight; will start phenobarbital taper; continue B-vitamins; CARE Team + Addiction Medicine consultations # DM2 - correction-dose lispro; A1c 6.4 # HLD - continue statin # VTE ppx: LMWH In my clinical judgment, the patient requires continued hospitalization for the following reasons: IV ABX Quality Stroke Does the patient have a stroke diagnosis?: No VTE Prior VTE?: No VTE Risk Level:: Medical - moderate - high VTE Device Contraindication: Treatment Not Indicated VTE Drug Contraindication: N/A - Med Ordered
[2021-10-24 10:33] LABS: Vancomycin Trough 7.1 mcg/mL (10.0-20.0)
--- NOTE | 2021-10-24 10:48 | HE.PHANOTE ---
Patient trough low 7.1, increase dose to 1500 mg q12, predicted auc 473, trough 7.7 (although, I would anticipate it to be higher), next level; 10/25@2100
[2021-10-24] MEDS: ondansetron HCL 4 MG/2 ML VIAL IVPUSH (11:11)
[2021-10-24] MEDS: vancomycin HCL 1,500 MG in 0.9 % Sodium Chloride 500 ML 333.33 MG IV ×2 (11:11→22:36)
[2021-10-24] MEDS: Acetaminophen 325 MG TABLET 650 MG PO ×2 (11:11→18:33)
[2021-10-24] MEDS: PHENobarbitaL 200 MG PO ONCE PO (11:11)
[2021-10-24 11:28] LABS: Glucose, Whole Blood 205 mg/dL (60-115)
--- NOTE | 2021-10-24 11:37 | MHC.CM.PN ---
PT REPORTS HE LIVES AT HOME WITH HIS S/O, EMY HE REPORTS HE IS INDEPENDENT, HAS NO DME AND NO HOME SERVICES PT HAS A HCP ON FILE PCP: THERESA CAVANAUGH HE REPORTS HE IS VACCINATED AGAINST COVID-19 CURRENT DC PLAN IS HOME WITH RESOURCES FROM [employer] PT TO ARRANGE TRANSPORT
[2021-10-24] MEDS: Insulin Lispro 100 UNIT/ML 3 ML VIAL SUBCUT ×3 (12:21→21:03)
[2021-10-24] MEDS: PHENobarbitaL 100 MG, PHENobarbitaL 60 MG 160 MG PO ×2 (14:39→17:16)
--- NOTE | 2021-10-24 15:39 | MHC.RECOVSUP ---
Recovery Support note: Patient is a 56 year old Tajik speaking male who [place] [facility] [place]. This personal lines underwriter met with patient in [phone] to discuss his alcohol use and recovery supports. Patient reports he has not had a drink since he discharged from the ED on 10/16. Patient reports he has had significant periods of sobriety however has been drinking on the weekends for the past few months. Patient reports he does not drink during the week due to work. Patient acknowledges that he is unable to limit his alcohol use once he starts drinking and he expresses that he plans to avoid consuming alcohol entirely moving forward. Discussed recovery supports with patient. Patient is interested in going to AA meetings and doing an evening IOP. Patient is also interested in starting naltrexone. Education on [facility] was provided. This personal lines underwriter will follow up with patient on 10/24 to provide resources discussed. Discussed case with Cheri Méndez NP.
[2021-10-24 15:55] LABS: Glucose, Whole Blood 163 mg/dL (60-115)
[2021-10-24 20:15] LABS: Glucose, Whole Blood 192 mg/dL (60-115)
[2021-10-24] MEDS: traZODone HCL 100 MG TABLET 200 MG PO (21:04)
--- NOTE | 2021-10-24 21:10 | PC.NURSE ---
p patient refuses Lovenox I Dr. Rendon notifed,patient educated on risk of DVT E encouraged activity,sequentials ordered
[2021-10-24] MEDS: Enoxaparin Sodium 40 MG/0.4 ML SYRINGE SUBCUT (22:38)
[2021-10-25] MEDS: oxyCODONE HCl Immed Release 5 MG TABLET PO ×3 (01:35→19:56)
[2021-10-25 03:53] VITALS: BP 139/82; PULSE 91; RESP 17; TEMP 39; O2SAT 96
--- NOTE | 2021-10-25 04:18 | PC.NURSE ---
Patient requesting to see MD as he c/o headache and chills and nausea for three days. Fever now 102.2 MD texted
[2021-10-25] MEDS: Acetaminophen 325 MG TABLET 650 MG PO ×2 (04:24→11:08)
[2021-10-25] MEDS: ondansetron HCL 4 MG/2 ML VIAL IVPUSH (04:24)
[2021-10-25] MEDS: Omeprazole 40 MG CAPSULE.DR PO (06:21)
[2021-10-25 06:23] VITALS: TEMP 36.4
[2021-10-25 07:06] LABS: Creatinine Clr Calc Pharmacy 114.7; Estimated Glomerular Filt Rate > 60
[2021-10-25 07:08] LABS: Glucose, Whole Blood 138 mg/dL (60-115)
[2021-10-25 07:46] VITALS: BP 131/59; PULSE 74; RESP 20; TEMP 36; O2SAT 94
[2021-10-25] MEDS: Labetalol HCL 100 MG TABLET 300 MG PO ×2 (08:36→19:55)
[2021-10-25] MEDS: Atorvastatin Calcium 40 MG TABLET PO (08:36)
[2021-10-25] MEDS: PHENobarbitaL 15 MG TABLET 45 MG PO ×2 (08:36→19:56)
[2021-10-25] MEDS: 0.9 % Sodium Chloride Flush 3 ML SYRINGE IVFLUSH ×3 (08:37→19:55)
--- NOTE | 2021-10-25 10:19 | HO.PM.IMPN ---
Subjective Subjective Date of Service: 10/25/21 Interval History: febrile to 102.2 last night c/o headache/chills Review of Systems Review of Systems: Yes all other systems are reviewed and are negative Physical Exam Vital Signs: Vital Signs: Last Vital Signs Temp 96.8 F 10/25/21 07:46 Pulse 74 10/25/21 07:46 Resp 20 10/25/21 07:46 BP 131/59 L 10/25/21 07:46 Pulse Ox 94 10/25/21 07:46 O2 Del Method 10/25/21 07:46 BMI result Body Mass Index 31.2 Gen: NAD HEENT: sclera anicteric, moist mucus membranes Neck: supple Lungs: clear to auscultation bilaterally Heart: regular rate and rhythm, no murmurs Abd: soft, non-tender, non-distended Ext: no edema Skin: warm/well-perfused, I+D wound 1 cm in R axilla with purulence expressed, minimal surrounding erythema + induration Neuro: alert and oriented x3, no focal findings Psych: appropriate affect Objective Data Active Medications Acetaminophen (Acetaminophen 325 Mg Tablet) 650 mg PO Q6H PRN PRN Reason: Pain, Mild (Pain Scale 1-3) Last Admin: 10/25/21 04:24 Dose: 650 mg Documented By: SKYE Atorvastatin Calcium (Atorvastatin Calcium 40 Mg Tablet) 40 mg PO DAILY [facility] Last Admin: 10/25/21 08:36 Dose: 40 mg Documented By: MANUEL Dextrose (Dextrose 50 % 25 Gm/50 Ml Syringe) 25 gm IVPUSH Q15M PRN; Protocol PRN Reason: per Hypoglycemia Standing Ord. Docusate Sodium (Docusate Sodium 100 Mg Capsule) 100 mg PO DAILY PRN PRN Reason: Constipation Enoxaparin Sodium (Enoxaparin Sodium 40 Mg/0.4 Ml Syringe) 40 mg SUBCUT Q24H [facility] Last Admin: 10/24/21 22:38 Dose: 40 mg Documented By: PAZ Glucose (Glucose Gel 15 Gm Gel..Gram.) 15 gm PO Q15M PRN; Protocol PRN Reason: per Hypoglycemia Standing Ord. Vancomycin HCl 1,500 mg/ (Sodium Chloride) 500 mls @ 333.333 mls/hr IV Q12H [facility] Last Infusion: 10/25/21 01:57 Dose: 0 mls/hr Documented By: SKYE Insulin Human Lispro (Insulin Lispro 100 Unit/Ml 3 Ml Vial) 0.1 - 10 unit SUBCUT QIDACHS [facility]; Protocol Last Admin: 10/25/21 07:51 Dose: Not Given Documented By: MANUEL Non-Admin Reason: No Insulin Coverage Labetalol HCl (Labetalol Hcl 100 Mg Tablet) 300 mg PO BID [facility] Last Admin: 10/25/21 08:36 Dose: 300 mg Documented By: MANUEL Omeprazole (Omeprazole 40 Mg Capsule.Dr) 40 mg PO DAILY@0630 [facility] Last Admin: 10/25/21 06:21 Dose: 40 mg Documented By: SKYE Ondansetron HCl (Ondansetron Hcl 4 Mg/2 Ml Vial) 4 mg IVPUSH Q8H PRN PRN Reason: Nausea and Vomiting Last Admin: 10/25/21 04:24 Dose: 4 mg Documented By: SKYE Oxycodone HCl (Oxycodone Hcl Immed Release 5 Mg Tablet) 5 mg PO Q6H PRN PRN Reason: severe pain Last Admin: 10/25/21 08:36 Dose: 5 mg Documented By: MANUEL Pharmacy Consult (Consult Rx Vancomycin Dosing) 1 each MISCELLANE DAILY PRN PRN Reason: Consult order Pharmacy Consult (Consult Rx Etoh Phenob Po Only) 1 each MISCELLANE ONCE PRN; Protocol PRN Reason: Consult order Phenobarbital (Phenobarbital 15 Mg Tablet) 45 mg PO BID [facility] Stop: 10/26/21 21:01 Last Admin: 10/25/21 08:36 Dose: 45 mg Documented By: MANUEL Phenobarbital (Phenobarbital 30 Mg Tablet) 30 mg PO BID [facility] Stop: 10/28/21 21:01 Phenobarbital (Phenobarbital 30 Mg Tablet) 30 mg PO DAILY [facility] Stop: 10/30/21 09:01 Sodium Chloride (0.9 % Sodium Chloride Flush 3 Ml Syringe) 3 ml IVFLUSH QSHIFT [facility] Last Admin: 10/25/21 08:37 Dose: 3 ml Documented By: MANUEL Trazodone HCl (Trazodone Hcl 100 Mg Tablet) 200 mg PO BEDTIME [facility] Last Admin: 10/24/21 21:04 Dose: 200 mg Documented By: PAZ Labs CBC & Chem 7: 10/23/21 06:16 10/25/21 05:48 Labs: Laboratory Results - last 24 hr 10/24/21 10/24/21 10/24/21 08:16 11:08 15:51 Estim Creat Clear Calc Estimated GFR POC Glucose 205 H 163 H Vancomycin Trough 7.1 L 10/24/21 10/25/21 10/25/21 20:08 05:48 07:04 Estim Creat Clear Calc 114.7 Estimated GFR > 60 POC Glucose 192 H 138 H Vancomycin Trough Microbiology Microbiology Results: Microbiology 10/23/21 10:24 Gram Stain - Final Axilla Right Routine Culture - Preliminary Staphylococcus aureus 10/23/21 21:59 Blood Culture - Preliminary Blood - Venous No growth after 24 hours. 10/23/21 21:55 Blood Culture - Preliminary Blood - Venous No growth after 24 hours. 10/22/21 18:59 Blood Culture - Preliminary Blood - Venous No growth after 48 hours. 10/22/21 18:51 Blood Culture - Preliminary Blood - Venous No growth after 48 hours. Assessment and Plan (1) Sepsis: Status: Acute (2) Cellulitis: Status: Acute (3) Abscess of axilla, right: Status: Acute Plan hospital d#4 56yo M with hx AUD, HTN, DM2, bipolar disorder presented with severe pain and drainage after office I+D of R axillary abscess by Dr Wadsworth after 1 wk of amox/clav did not resolve the initial infection admitted for severe sepsis related to purulent cellulitis # purulent cellulitis - s/p I+D 10/22 in Gen Surg office; consult Gen Surg as incision may need to be extended; also consult ID given persistent fevers; continue vancomycin alone d#4; wound Cx growing St. aureus, follow-up methicillin resistance status, follow BCx which are negative to date # severe sepsis - lactic acidosis normalized # HTN - labetalol # EtOH withdrawal -contine phenobarbital taper; continue B-vitamins; CARE Team + Addiction Medicine consultations # DM2 - correction-dose lispro; A1c 6.4 # HLD - continue statin # VTE ppx: LMWH In my clinical judgment, the patient requires continued hospitalization for the following reasons: IV ABX Quality Stroke Does the patient have a stroke diagnosis?: No VTE Prior VTE?: No VTE Risk Level:: Medical - moderate - high VTE Device Contraindication: Treatment Not Indicated VTE Drug Contraindication: N/A - Med Ordered
[2021-10-25] MEDS: vancomycin HCL 1,500 MG in 0.9 % Sodium Chloride 500 ML 333.33 MG IV ×2 (11:09→22:48)
[2021-10-25 11:25] LABS: Glucose, Whole Blood 141 mg/dL (60-115)
[2021-10-25 11:53] VITALS: BP 156/86; PULSE 67; RESP 20; TEMP 36.6; O2SAT 96
[2021-10-25 15:47] VITALS: BP 133/71; PULSE 65; RESP 17; TEMP 37; O2SAT 96
[2021-10-25 16:14] LABS: Glucose, Whole Blood 210 mg/dL (60-115)
[2021-10-25] MEDS: Insulin Lispro 100 UNIT/ML 3 ML VIAL SUBCUT ×2 (16:19→20:10)
[2021-10-25] MEDS: Morphine Sulfate 4 MG/ML CARTRIDGE IVPUSH (16:19)
--- NOTE | 2021-10-25 17:19 | PM.CNGS ---
History of Present Illness Consult details Consult date: 10/25/21 Reason for consult: other Requesting physician: Dasha Zavala Narrative: the pt is a 56 year old male with right axillary abscess who had it drained a few days ago in the office but he continued to get worse and then developed fevers and chills and cellulitis and am to the ER - he has been admitted and getting iv antibx- Vaco - cx grew out staph aureus. however area still sore and with temps and wbc area of firmness present on exam Review of Systems Review of Systems: Yes all other systems are reviewed and are negative [facility] Past Medical History Medical History Abdominal pain Acute hepatitis Alcohol dependence Alcohol withdrawal Anxiety Benign essential hypertension Bipolar depression Diabetes mellitus GERD without esophagitis History of alcoholic hepatitis HTN (hypertension) Mixed hyperlipidemia Obesity (BMI 30-39.9) Other bursal cyst, left ankle and foot Other cyst of bone, left hand Family History Family History Father Advanced cirrhosis of liver Alcoholic cirrhosis Substance use disorder Mother Dementia Maternal Grandfather Substance use disorder Sister Substance use disorder Surgical History Surgical History No pertinent past surgical history Social History Social History Household Members: Significant Other Housing: House Do you presently have visiting nurse or other home services: No Alcohol intake: former Patient Tobacco Use Status: Former Tobacco user Tobacco use type: Cigarette Years Smoked: quit 10 years ago e-Cigarette/Vaping Use: Never Used Second Hand Smoke Exposure: No service: No 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 Cognitive needs: No Hearing needs: No Vision needs: No Meds Allergies Allergy/AdvReac Type Severity Reaction Status Date / Time No Known Allergies Allergy Verified 10/22/21 09:08 [No Known Allergies*] Active Medications: Current Medications Acetaminophen (Acetaminophen 325 Mg Tablet) 650 mg PO Q6H PRN PRN Reason: Pain, Mild (Pain Scale 1-3) Last Admin: 10/25/21 11:08 Dose: 650 mg Atorvastatin Calcium (Atorvastatin Calcium 40 Mg Tablet) 40 mg PO DAILY [facility] Last Admin: 10/25/21 08:36 Dose: 40 mg Dextrose (Dextrose 50 % 25 Gm/50 Ml Syringe) 25 gm IVPUSH Q15M PRN; Protocol PRN Reason: per Hypoglycemia Standing Ord. Docusate Sodium (Docusate Sodium 100 Mg Capsule) 100 mg PO DAILY PRN PRN Reason: Constipation Enoxaparin Sodium (Enoxaparin Sodium 40 Mg/0.4 Ml Syringe) 40 mg SUBCUT Q24H [facility] Last Admin: 10/24/21 22:38 Dose: 40 mg Glucose (Glucose Gel 15 Gm Gel..Gram.) 15 gm PO Q15M PRN; Protocol PRN Reason: per Hypoglycemia Standing Ord. Vancomycin HCl 1,500 mg/ (Sodium Chloride) 500 mls @ 333.333 mls/hr IV Q12H [facility] Last Infusion: 10/25/21 12:49 Dose: Infused Insulin Human Lispro (Insulin Lispro 100 Unit/Ml 3 Ml Vial) 0.1 - 10 unit SUBCUT QIDACHS [facility]; Protocol Last Admin: 10/25/21 16:19 Dose: 4 unit Labetalol HCl (Labetalol Hcl 100 Mg Tablet) 300 mg PO BID [facility] Last Admin: 10/25/21 08:36 Dose: 300 mg Omeprazole (Omeprazole 40 Mg Capsule.Dr) 40 mg PO DAILY@0630 [facility] Last Admin: 10/25/21 06:21 Dose: 40 mg Ondansetron HCl (Ondansetron Hcl 4 Mg/2 Ml Vial) 4 mg IVPUSH Q8H PRN PRN Reason: Nausea and Vomiting Last Admin: 10/25/21 04:24 Dose: 4 mg Oxycodone HCl (Oxycodone Hcl Immed Release 5 Mg Tablet) 5 mg PO Q6H PRN PRN Reason: severe pain Last Admin: 10/25/21 08:36 Dose: 5 mg Pharmacy Consult (Consult Rx Vancomycin Dosing) 1 each MISCELLANE DAILY PRN PRN Reason: Consult order Pharmacy Consult (Consult Rx Etoh Phenob Po Only) 1 each MISCELLANE ONCE PRN; Protocol PRN Reason: Consult order Phenobarbital (Phenobarbital 15 Mg Tablet) 45 mg PO BID [facility] Stop: 10/26/21 21:01 Last Admin: 10/25/21 08:36 Dose: 45 mg Phenobarbital (Phenobarbital 30 Mg Tablet) 30 mg PO BID [facility] Stop: 10/28/21 21:01 Phenobarbital (Phenobarbital 30 Mg Tablet) 30 mg PO DAILY [facility] Stop: 10/30/21 09:01 Sodium Chloride (0.9 % Sodium Chloride Flush 3 Ml Syringe) 3 ml IVFLUSH QSHIFT [facility] Last Admin: 10/25/21 17:12 Dose: 3 ml Trazodone HCl (Trazodone Hcl 100 Mg Tablet) 200 mg PO BEDTIME [facility] Last Admin: 10/24/21 21:04 Dose: 200 mg Zolpidem Tartrate (Zolpidem Tartrate 5 Mg Tablet) 5 mg PO BEDTIME PRN PRN Reason: Insomnia Home Medications Medication Instructions Recorded Confirmed Last Taken Type labetalol 300 mg tablet 1 tab PO BID 09/23/21 10/22/21 10/22/21 09:00 History metformin 500 mg tablet 1 tab PO BID 09/23/21 10/22/21 10/22/21 09:00 History rosuvastatin 10 mg tablet 1 tab PO DAILY 09/23/21 10/22/21 10/22/21 09:00 History Physical Exam Vital Signs: Vital Signs: Last Vital Signs Temp 98.6 F 10/25/21 15:47 Pulse 65 10/25/21 15:47 Resp 17 10/25/21 15:47 BP 133/71 10/25/21 15:47 Pulse Ox 96 10/25/21 15:47 O2 Del Method 10/25/21 15:47 BMI result Body Mass Index 31.2 Const: General: cooperative, healthy appearing and comfortable Skin: Other: right axillary area with firm induration and drainage opening with some leakage but mainly closed. indurated area about 3x1.5 cm mildly tender Results Labs Result diagrams: 10/23/21 06:16 10/25/21 05:48 Labs: Abnormal lab results 10/24/21 10/25/21 10/25/21 Range/Units 20:08 07:04 11:17 POC Glucose 192 H 138 H 141 H (60-115) mg/dL 10/25/21 Range/Units 16:02 POC Glucose 210 H (60-115) mg/dL BMP 10/25/21 05:48 Creatinine 0.79 All other labs normal. Assessment and Plan (1) Abscess of axilla, right: Status: Acute Plan 56 year old male with right axillary abscess and infection making ill- somewhat improved s/p drainage in office and iv vanco for staph but not improving now - indurated area to be drained. he understands and gets the risks and bendfits and wishes to proceed. Procedures Date of Service Date of Service: 10/25/21 Abscess I/D Consent for Procedure: Elective - informed consent obtained Site: other (axilla) Side (if applicable): right Sedation/analgesia: other Anesthetic used: lidocaine 1% Technique: other Irrigation: Yes Packing used?: plain Additional comments: area cleaned wiht betadine swab and numbed with lidocaine and 15 blade used to shah over the indurated area and snap used to break up the area - some murky liquid obtained but not much purulence. area less indurated with breaking up loculated areas of firmness. he tolerate procedure well
[2021-10-25 19:32] VITALS: BP 121/70; PULSE 71; RESP 18; TEMP 36.6; O2SAT 97
[2021-10-25] MEDS: traZODone HCL 100 MG TABLET 200 MG PO (19:55)
[2021-10-25 19:58] LABS: Glucose, Whole Blood 161 mg/dL (60-115)
[2021-10-25 22:06] LABS: Vancomycin Trough 11.3 mcg/mL (10.0-20.0)
[2021-10-25] MEDS: Zolpidem Tartrate 5 MG TABLET PO (22:50)
[2021-10-25] MEDS: Enoxaparin Sodium 40 MG/0.4 ML SYRINGE SUBCUT (22:51)
[2021-10-26] VITALS: BP 119/64; PULSE 76; RESP 18; TEMP 39.1; O2SAT 97
[2021-10-26] MEDS: Acetaminophen 325 MG TABLET 650 MG PO (00:31)
[2021-10-26 04:00] VITALS: BP 110/78; PULSE 76; RESP 17; TEMP 36.4; TEMP 36.5; O2SAT 95
[2021-10-26] MEDS: Omeprazole 40 MG CAPSULE.DR PO (05:46)
[2021-10-26 06:26] LABS: Creatinine Clr Calc Pharmacy 109.2; Estimated Glomerular Filt Rate > 60
[2021-10-26] MEDS: oxyCODONE HCl Immed Release 5 MG TABLET PO ×2 (07:46→21:00)
[2021-10-26] MEDS: 0.9 % Sodium Chloride Flush 3 ML SYRINGE IVFLUSH ×3 (07:48→21:00)
[2021-10-26 07:50] LABS: Glucose, Whole Blood 130 mg/dL (60-115)
--- NOTE | 2021-10-26 07:50 | PM.PNGS ---
Subjective Subjective Date of Service: 10/26/21 Interval history: feels much better pain much improved no fever Physical Exam Vital Signs: Vital Signs: Last Vital Signs Temp 97.6 F 10/26/21 04:00 Pulse 76 10/26/21 04:00 Resp 17 10/26/21 04:00 BP 110/78 10/26/21 04:00 Pulse Ox 95 10/26/21 04:00 O2 Del Method 10/26/21 04:00 BMI result Body Mass Index 31.2 Const: General: comfortable and no acute distress Resp: Effort & Inspection: normal respiratory effort Cardio: Rate: regular rate Extrem: Other: right axillary I and D site much less indurated, no pus, packing in place Objective Data Active Medications Acetaminophen (Acetaminophen 325 Mg Tablet) 650 mg PO Q6H PRN PRN Reason: Pain, Mild (Pain Scale 1-3) Last Admin: 10/26/21 00:31 Dose: 650 mg Documented By: OMER Atorvastatin Calcium (Atorvastatin Calcium 40 Mg Tablet) 40 mg PO DAILY [facility] Last Admin: 10/25/21 08:36 Dose: 40 mg Documented By: MANUEL Dextrose (Dextrose 50 % 25 Gm/50 Ml Syringe) 25 gm IVPUSH Q15M PRN; Protocol PRN Reason: per Hypoglycemia Standing Ord. Docusate Sodium (Docusate Sodium 100 Mg Capsule) 100 mg PO DAILY PRN PRN Reason: Constipation Enoxaparin Sodium (Enoxaparin Sodium 40 Mg/0.4 Ml Syringe) 40 mg SUBCUT Q24H [facility] Last Admin: 10/25/21 22:51 Dose: 40 mg Documented By: OMER Glucose (Glucose Gel 15 Gm Gel..Gram.) 15 gm PO Q15M PRN; Protocol PRN Reason: per Hypoglycemia Standing Ord. Vancomycin HCl 1,500 mg/ (Sodium Chloride) 500 mls @ 333.333 mls/hr IV Q12H [facility] Last Infusion: 10/26/21 00:35 Dose: 0 mls/hr Documented By: OMER Insulin Human Lispro (Insulin Lispro 100 Unit/Ml 3 Ml Vial) 0.1 - 10 unit SUBCUT QIDACHS [facility]; Protocol Last Admin: 10/26/21 07:48 Dose: Not Given Documented By: MANUEL Non-Admin Reason: No Insulin Coverage Labetalol HCl (Labetalol Hcl 100 Mg Tablet) 300 mg PO BID [facility] Last Admin: 10/25/21 19:55 Dose: 300 mg Documented By: OMER Omeprazole (Omeprazole 40 Mg Capsule.Dr) 40 mg PO DAILY@0630 [facility] Last Admin: 10/26/21 05:46 Dose: 40 mg Documented By: OMER Ondansetron HCl (Ondansetron Hcl 4 Mg/2 Ml Vial) 4 mg IVPUSH Q8H PRN PRN Reason: Nausea and Vomiting Last Admin: 10/25/21 04:24 Dose: 4 mg Documented By: SKYE Oxycodone HCl (Oxycodone Hcl Immed Release 5 Mg Tablet) 5 mg PO Q6H PRN PRN Reason: severe pain Last Admin: 10/26/21 07:46 Dose: 5 mg Documented By: MANUEL Pharmacy Consult (Consult Rx Vancomycin Dosing) 1 each MISCELLANE DAILY PRN PRN Reason: Consult order Pharmacy Consult (Consult Rx Etoh Phenob Po Only) 1 each MISCELLANE ONCE PRN; Protocol PRN Reason: Consult order Phenobarbital (Phenobarbital 15 Mg Tablet) 45 mg PO BID [facility] Stop: 10/26/21 21:01 Last Admin: 10/25/21 19:56 Dose: 45 mg Documented By: OMER Phenobarbital (Phenobarbital 30 Mg Tablet) 30 mg PO BID [facility] Stop: 10/28/21 21:01 Phenobarbital (Phenobarbital 30 Mg Tablet) 30 mg PO DAILY [facility] Stop: 10/30/21 09:01 Sodium Chloride (0.9 % Sodium Chloride Flush 3 Ml Syringe) 3 ml IVFLUSH QSHIFT [facility] Last Admin: 10/26/21 07:48 Dose: 3 ml Documented By: MANUEL Trazodone HCl (Trazodone Hcl 100 Mg Tablet) 200 mg PO BEDTIME [facility] Last Admin: 10/25/21 19:55 Dose: 200 mg Documented By: OMER Zolpidem Tartrate (Zolpidem Tartrate 5 Mg Tablet) 5 mg PO BEDTIME PRN PRN Reason: Insomnia Last Admin: 10/25/21 22:50 Dose: 5 mg Documented By: OMRE Labs CBC & Chem 7: 10/23/21 06:16 10/26/21 05:39 Labs: Laboratory Results - last 24 hr 10/25/21 10/25/21 10/25/21 11:17 16:02 19:44 Estim Creat Clear Calc Estimated GFR POC Glucose 141 H 210 H 161 H Vancomycin Trough 10/25/21 10/26/21 21:00 05:39 Estim Creat Clear Calc 109.2 Estimated GFR > 60 POC Glucose Vancomycin Trough 11.3 Microbiology Microbiology Results: Microbiology 10/23/21 21:59 Blood Culture - Preliminary Blood - Venous No growth after 48 hours. 10/23/21 21:55 Blood Culture - Preliminary Blood - Venous No growth after 48 hours. 10/23/21 10:24 Gram Stain - Final Axilla Right Routine Culture - Preliminary Staphylococcus aureus Procedures Date of Service Date of Service: 10/26/21 Progress Note: A&P Assessment and plan (1) Abscess of axilla, right: Status: Acute Assessment and Plan: I and D site much improved I removed her packing ok to dc home with PO abx warm compress ffup in office 1-2 weeks Time Spent With Patient Time: Total time spent is greater than 50% in coordination of care (as documented) at patient's floor/unit and/or counseling patient: Quality Stroke Does the patient have a stroke diagnosis?: No VTE Prior VTE?: No VTE Risk Level:: Medical - moderate - high VTE Device Contraindication: Treatment Not Indicated VTE Drug Contraindication: N/A - Med Ordered
--- NOTE | 2021-10-26 07:51 | HE.PHANOTE ---
Addendum entered by Sofia Jackson [facility] 10/26/21 13:15: Vancomycin Addendum Spoke with Dr. Martinez regarding patient with low grade fever. Confirmed current vancomycin dosing regimen targets an AUC of 505 with a corresponding trough of 8.9 mg/L based on Bayesian modeling software. Level on 10/25 @ 2100 of 11.3. Hence, patient therapeutic on vancomycin regimen. Dr. Martinez reports patient is improving. Patient concurrently on phenobarbital which has been implicated in drug-induced fevers. According to Dr. Martinez, plan is if no high grade fever reported to continue current therapy and re-evaluate. Alternate plan will be to change to linezolid should the picture change. Will continue to follow. Charity Jackson, PharmD, BCPS, BCCCP x [phone] Original Note: Vancomycin Dosing Addendum Patient Scr stable. Continue current regimen. Predicted AUC 505mg/L/hr with a T of 8.9mg/L. Trough ordered for 10/27 @0900
[2021-10-26 07:53] VITALS: BP 131/81; PULSE 74; RESP 16; TEMP 37.6; O2SAT 97
[2021-10-26 09:17] LABS: Hematocrit 30.9 % (42.0-52.0); Hemoglobin 10.9 g/dl (14.0-18.0); Mean Corpuscular HGB Conc 35.3 g/dl (31.0-36.0); Mean Corpuscular Hemoglobin 31.7 pg (27.0-33.0); Mean Corpuscular Volume 89.8 fL (80.0-98.0); Mean Platelet Volume 9.7 fL (9.4-12.4); Platelet Count 165 X10*3/uL (160-400); Red Blood Count 3.44 X10*6/uL (4.60-5.80); Red Cell Distribution Width 12.9 % (11.0-16.0); White Blood Count 5.9 X10*3/uL (4.8-10.8)
[2021-10-26] MEDS: Atorvastatin Calcium 40 MG TABLET PO (10:43)
[2021-10-26] MEDS: PHENobarbitaL 15 MG TABLET 45 MG PO ×2 (10:43→20:58)
[2021-10-26] MEDS: Labetalol HCL 100 MG TABLET 300 MG PO ×2 (10:43→20:57)
[2021-10-26] MEDS: vancomycin HCL 1,500 MG in 0.9 % Sodium Chloride 500 ML 333.33 MG IV ×2 (10:44→22:48)
[2021-10-26] MEDS: Docusate Sodium 100 MG CAPSULE PO (10:55)
--- NOTE | 2021-10-26 11:22 | HO.ADDICT_ITS ---
History of Present Illness Date of Service: 10/26/2021 Chief Complaint: Abscess,Sepsis Reason for Consult: AUD HPI Narrative: Patient is a 56 year old male currently medically admitted with abcess requiring IV abx. Patient also carries dx of alcohol use disorder, and was started on phenobarb taper after concern of alcohol withdrawal sx. Seen by [facility] and expressed interest in restarting Naltrexone This morning seen by this greeting card writer and RSRN. Patient states AUD has been an ongoing issue decades . He reports longest period in recovery was 2 years. Expressing desire to remain abstinent from alcohol I have lost so much because of drinking . History of Naltrexone few months , feels it was effective. Previously involved with recovery community in [place]--provided with local recovery resources as well as virtual resources. 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 Past Psychiatric History: Inpatient: [facility] more than 10 years OP: none suicide attempts: none Past medication trials: sertraline, seroquel Review of Systems Constitutional: Reports as per HPI and Reports no additional constitutional complaints Diagnostics Vital Signs (24Hr): Vital Signs - 24 hr 10/25/21 11:53 10/25/21 15:47 10/25/21 19:32 Temperature 97.8 F 98.6 F 98 F Pulse Rate 67 65 71 Respiratory Rate 20 17 18 Blood Pressure 156/86 H 133/71 121/70 Pulse Oximetry 96 96 97 Oxygen Delivery Method Room Air Room Air Room Air 10/26/21 00:00 10/26/21 04:00 10/26/21 04:00 Temperature 102.3 F H 97.7 F 97.6 F Pulse Rate 76 76 Respiratory Rate 18 17 Blood Pressure 119/64 110/78 Pulse Oximetry 97 95 Oxygen Delivery Method Room Air Room Air 10/26/21 07:53 Temperature 99.6 F Pulse Rate 74 Respiratory Rate 16 Blood Pressure 131/81 Pulse Oximetry 97 Oxygen Delivery Method BMI result Body Mass Index 31.2 Labs Results: 10/26/21 08:33 10/26/21 05:39 Labs: Laboratory Results - last 48 hr 10/24/21 10/24/21 10/24/21 11:08 15:51 20:08 WBC RBC Hgb Hct MCV MCH MCHC RDW Plt Count MPV Absolute Nucleated RBC Nucleated RBC % (auto) Creatinine Estim Creat Clear Calc Estimated GFR POC Glucose 205 H 163 H 192 H Vancomycin Trough 10/25/21 10/25/21 10/25/21 05:48 07:04 11:17 WBC RBC Hgb Hct MCV MCH MCHC RDW Plt Count MPV Absolute Nucleated RBC Nucleated RBC % (auto) Creatinine 0.79 Estim Creat Clear Calc 114.7 Estimated GFR > 60 POC Glucose 138 H 141 H Vancomycin Trough 10/25/21 10/25/21 10/25/21 16:02 19:44 21:00 WBC RBC Hgb Hct MCV MCH MCHC RDW Plt Count MPV Absolute Nucleated RBC Nucleated RBC % (auto) Creatinine Estim Creat Clear Calc Estimated GFR POC Glucose 210 H 161 H Vancomycin Trough 11.3 10/26/21 10/26/21 10/26/21 05:39 07:45 08:33 WBC 5.9 RBC 3.44 L Hgb 10.9 L Hct 30.9 L MCV 89.8 MCH 31.7 MCHC 35.3 RDW 12.9 Plt Count 165 D MPV 9.7 Absolute Nucleated RBC 0.000 Nucleated RBC % (auto) 0.0 Creatinine 0.83 Estim Creat Clear Calc 109.2 Estimated GFR > 60 POC Glucose 130 H Vancomycin Trough Imaging Radiology Impressions: ITS Impressions Head CT 10/22/21 20:30 IMPRESSION: No acute intracranial pathology. Mental Status Exam Mental Status Exam Patient Appearance: Appropriate Level of Consciousness: Awake and Appropriate Patient Behavior: Appropriate and Cooperative Affect Description: Calm Judgement: Good Medications Medications Current Medications Acetaminophen (Acetaminophen 325 Mg Tablet) 650 mg PO Q6H PRN PRN Reason: Pain, Mild (Pain Scale 1-3) Last Admin: 10/26/21 00:31 Dose: 650 mg Atorvastatin Calcium (Atorvastatin Calcium 40 Mg Tablet) 40 mg PO DAILY [facility] Last Admin: 10/26/21 10:43 Dose: 40 mg Dextrose (Dextrose 50 % 25 Gm/50 Ml Syringe) 25 gm IVPUSH Q15M PRN; Protocol PRN Reason: per Hypoglycemia Standing Ord. Docusate Sodium (Docusate Sodium 100 Mg Capsule) 100 mg PO DAILY PRN PRN Reason: Constipation Last Admin: 10/26/21 10:55 Dose: 100 mg Enoxaparin Sodium (Enoxaparin Sodium 40 Mg/0.4 Ml Syringe) 40 mg SUBCUT Q24H [facility] Last Admin: 10/25/21 22:51 Dose: 40 mg Glucose (Glucose Gel 15 Gm Gel..Gram.) 15 gm PO Q15M PRN; Protocol PRN Reason: per Hypoglycemia Standing Ord. Vancomycin HCl 1,500 mg/ (Sodium Chloride) 500 mls @ 333.333 mls/hr IV Q12H [facility] Last Admin: 10/26/21 10:44 Dose: 333.33 mls/hr Insulin Human Lispro (Insulin Lispro 100 Unit/Ml 3 Ml Vial) 0.1 - 10 unit SUBCUT QIDACHS [facility]; Protocol Last Admin: 10/26/21 07:48 Dose: Not Given Labetalol HCl (Labetalol Hcl 100 Mg Tablet) 300 mg PO BID [facility] Last Admin: 10/26/21 10:43 Dose: 300 mg Omeprazole (Omeprazole 40 Mg Capsule.Dr) 40 mg PO DAILY@0630 [facility] Last Admin: 10/26/21 05:46 Dose: 40 mg Ondansetron HCl (Ondansetron Hcl 4 Mg/2 Ml Vial) 4 mg IVPUSH Q8H PRN PRN Reason: Nausea and Vomiting Last Admin: 10/25/21 04:24 Dose: 4 mg Oxycodone HCl (Oxycodone Hcl Immed Release 5 Mg Tablet) 5 mg PO Q6H PRN PRN Reason: severe pain Last Admin: 10/26/21 07:46 Dose: 5 mg Pharmacy Consult (Consult Rx Vancomycin Dosing) 1 each MISCELLANE DAILY PRN PRN Reason: Consult order Pharmacy Consult (Consult Rx Etoh Phenob Po Only) 1 each MISCELLANE ONCE PRN; Protocol PRN Reason: Consult order Phenobarbital (Phenobarbital 15 Mg Tablet) 45 mg PO BID [facility] Stop: 10/26/21 21:01 Last Admin: 10/26/21 10:43 Dose: 45 mg Phenobarbital (Phenobarbital 30 Mg Tablet) 30 mg PO BID [facility] Stop: 10/28/21 21:01 Phenobarbital (Phenobarbital 30 Mg Tablet) 30 mg PO DAILY [facility] Stop: 10/30/21 09:01 Sodium Chloride (0.9 % Sodium Chloride Flush 3 Ml Syringe) 3 ml IVFLUSH QSHIFT [facility] Last Admin: 10/26/21 07:48 Dose: 3 ml Trazodone HCl (Trazodone Hcl 100 Mg Tablet) 200 mg PO BEDTIME [facility] Last Admin: 10/25/21 19:55 Dose: 200 mg Zolpidem Tartrate (Zolpidem Tartrate 5 Mg Tablet) 5 mg PO BEDTIME PRN PRN Reason: Insomnia Last Admin: 10/25/21 22:50 Dose: 5 mg Allergies Allergies Allergy/AdvReac Type Severity Reaction Status Date / Time No Known Allergies Allergy Verified 10/22/21 09:08 [No Known Allergies*] Assessment & Plan Assessment & Plan (1) Alcohol use disorder, moderate, dependence: Status: Acute Code(s): F10.20 - Alcohol dependence, uncomplicated Assessment and Plan: * naltrexone 50mg QD can be started once he is discharged (currently receiving pain medication) * follow up appt at [facility] to be scheduled I spent __35____ minutes with the patient and/or on the patient floor today, greater than?50% of which was spent counseling/coordinating care. PMFSH Past Medical History Medical History Abdominal pain Acute hepatitis Alcohol dependence Alcohol withdrawal Anxiety Benign essential hypertension Bipolar depression Diabetes mellitus GERD without esophagitis History of alcoholic hepatitis HTN (hypertension) Mixed hyperlipidemia Obesity (BMI 30-39.9) Other bursal cyst, left ankle and foot Other cyst of bone, left hand Family History Family History Father Advanced cirrhosis of liver Alcoholic cirrhosis Substance use disorder Mother Dementia Maternal Grandfather Substance use disorder Sister Substance use disorder Surgical History Surgical History No pertinent past surgical history Social History Social History Household Members: Significant Other Housing: House Do you presently have visiting nurse or other home services: No Alcohol intake: former Patient Tobacco Use Status: Former Tobacco user Tobacco use type: Cigarette Years Smoked: quit 10 years ago e-Cigarette/Vaping Use: Never Used Second Hand Smoke Exposure: No service: No 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 Cognitive needs: No Hearing needs: No Vision needs: No
[2021-10-26 11:41] LABS: Glucose, Whole Blood 161 mg/dL (60-115)
[2021-10-26] MEDS: Insulin Lispro 100 UNIT/ML 3 ML VIAL SUBCUT ×2 (11:53→20:56)
--- NOTE | 2021-10-26 12:35 | HO.PM.IMPN ---
Subjective Subjective Date of Service: 10/26/21 Interval History: loculations in abscess broken up by Dr Berkowitz yesterday and wound was packed pt had fever 102.2 this AM however, he does feel better without chills or headache Review of Systems Review of Systems: Yes all other systems are reviewed and are negative Physical Exam Vital Signs: Vital Signs: Last Vital Signs Temp 99.6 F 10/26/21 07:53 Pulse 74 10/26/21 07:53 Resp 16 10/26/21 07:53 BP 131/81 10/26/21 07:53 Pulse Ox 97 10/26/21 07:53 O2 Del Method 10/26/21 04:00 BMI result Body Mass Index 31.2 Gen: NAD HEENT: sclera anicteric, moist mucus membranes Neck: supple Lungs: clear to auscultation bilaterally Heart: regular rate and rhythm, no murmurs Abd: soft, non-tender, non-distended Ext: no edema Skin: warm/well-perfused, I+D wound R axilla with no residual purulence, packing removed by Dr Wadsworth, minimal surrounding erythema + induration Neuro: alert and oriented x3, no focal findings Psych: appropriate affect Objective Data Active Medications Acetaminophen (Acetaminophen 325 Mg Tablet) 650 mg PO Q6H PRN PRN Reason: Pain, Mild (Pain Scale 1-3) Last Admin: 10/26/21 00:31 Dose: 650 mg Documented By: OMER Atorvastatin Calcium (Atorvastatin Calcium 40 Mg Tablet) 40 mg PO DAILY [facility] Last Admin: 10/26/21 10:43 Dose: 40 mg Documented By: MANUEL Dextrose (Dextrose 50 % 25 Gm/50 Ml Syringe) 25 gm IVPUSH Q15M PRN; Protocol PRN Reason: per Hypoglycemia Standing Ord. Docusate Sodium (Docusate Sodium 100 Mg Capsule) 100 mg PO DAILY PRN PRN Reason: Constipation Last Admin: 10/26/21 10:55 Dose: 100 mg Documented By: MANUEL Enoxaparin Sodium (Enoxaparin Sodium 40 Mg/0.4 Ml Syringe) 40 mg SUBCUT Q24H [facility] Last Admin: 10/25/21 22:51 Dose: 40 mg Documented By: OMER Glucose (Glucose Gel 15 Gm Gel..Gram.) 15 gm PO Q15M PRN; Protocol PRN Reason: per Hypoglycemia Standing Ord. Vancomycin HCl 1,500 mg/ (Sodium Chloride) 500 mls @ 333.333 mls/hr IV Q12H [facility] Last Admin: 10/26/21 10:44 Dose: 333.33 mls/hr Documented By: MANUEL Insulin Human Lispro (Insulin Lispro 100 Unit/Ml 3 Ml Vial) 0.1 - 10 unit SUBCUT QIDACHS [facility]; Protocol Last Admin: 10/26/21 11:53 Dose: 2 unit Documented By: MANUEL Labetalol HCl (Labetalol Hcl 100 Mg Tablet) 300 mg PO BID [facility] Last Admin: 10/26/21 10:43 Dose: 300 mg Documented By: MANUEL Omeprazole (Omeprazole 40 Mg Capsule.Dr) 40 mg PO DAILY@0630 [facility] Last Admin: 10/26/21 05:46 Dose: 40 mg Documented By: OMER Ondansetron HCl (Ondansetron Hcl 4 Mg/2 Ml Vial) 4 mg IVPUSH Q8H PRN PRN Reason: Nausea and Vomiting Last Admin: 10/25/21 04:24 Dose: 4 mg Documented By: SKYE Oxycodone HCl (Oxycodone Hcl Immed Release 5 Mg Tablet) 5 mg PO Q6H PRN PRN Reason: severe pain Last Admin: 10/26/21 07:46 Dose: 5 mg Documented By: MANUEL Pharmacy Consult (Consult Rx Vancomycin Dosing) 1 each MISCELLANE DAILY PRN PRN Reason: Consult order Pharmacy Consult (Consult Rx Etoh Phenob Po Only) 1 each MISCELLANE ONCE PRN; Protocol PRN Reason: Consult order Phenobarbital (Phenobarbital 15 Mg Tablet) 45 mg PO BID [facility] Stop: 10/26/21 21:01 Last Admin: 10/26/21 10:43 Dose: 45 mg Documented By: MANUEL Phenobarbital (Phenobarbital 30 Mg Tablet) 30 mg PO BID [facility] Stop: 10/28/21 21:01 Phenobarbital (Phenobarbital 30 Mg Tablet) 30 mg PO DAILY [facility] Stop: 10/30/21 09:01 Sodium Chloride (0.9 % Sodium Chloride Flush 3 Ml Syringe) 3 ml IVFLUSH QSHIFT [facility] Last Admin: 10/26/21 07:48 Dose: 3 ml Documented By: MANUEL Trazodone HCl (Trazodone Hcl 100 Mg Tablet) 200 mg PO BEDTIME [facility] Last Admin: 10/25/21 19:55 Dose: 200 mg Documented By: OMER Zolpidem Tartrate (Zolpidem Tartrate 5 Mg Tablet) 5 mg PO BEDTIME PRN PRN Reason: Insomnia Last Admin: 10/25/21 22:50 Dose: 5 mg Documented By: OMER Labs CBC & Chem 7: 10/26/21 08:33 10/26/21 05:39 Labs: Laboratory Results - last 24 hr 10/25/21 10/25/21 10/25/21 16:02 19:44 21:00 MCV MCH MCHC RDW Plt Count MPV Absolute Nucleated RBC Nucleated RBC % (auto) Estim Creat Clear Calc Estimated GFR POC Glucose 210 H 161 H Vancomycin Trough 11.3 10/26/21 10/26/21 10/26/21 05:39 07:45 08:33 MCV 89.8 MCH 31.7 MCHC 35.3 RDW 12.9 Plt Count 165 D MPV 9.7 Absolute Nucleated RBC 0.000 Nucleated RBC % (auto) 0.0 Estim Creat Clear Calc 109.2 Estimated GFR > 60 POC Glucose 130 H Vancomycin Trough 10/26/21 11:35 MCV MCH MCHC RDW Plt Count MPV Absolute Nucleated RBC Nucleated RBC % (auto) Estim Creat Clear Calc Estimated GFR POC Glucose 161 H Vancomycin Trough Microbiology Microbiology Results: Microbiology 10/23/21 10:24 Gram Stain - Final Axilla Right Routine Culture - Final Methicillin Res Staph Aureus 10/23/21 21:59 Blood Culture - Preliminary Blood - Venous No growth after 48 hours. 10/23/21 21:55 Blood Culture - Preliminary Blood - Venous No growth after 48 hours. Assessment and Plan (1) Sepsis: Status: Acute (2) Cellulitis: Status: Acute (3) Abscess of axilla, right: Status: Acute Plan hospital d#5 56yo M with hx AUD, HTN, DM2, bipolar disorder presented with severe pain and drainage after office I+D of R axillary abscess by Dr Wadsworth after 1 wk of amox/clav did not resolve the initial infection admitted for severe sepsis related to purulent cellulitis # purulent cellulitis, MRSA growing from wound, no bacteremia - s/p I+D 10/22 in Gen Surg office; repeat I+D at bedside 10/25; continue vancomycin d#5; ID consult pending; check tickborne panel given nightly fevers # severe sepsis - lactic acidosis normalized # HTN - labetalol # EtOH withdrawal - continuephenobarbital taper; continue B-vitamins; CARE Team + Addiction Medicine consultations # DM2 - correction-dose lispro; A1c 6.4 # HLD - continue statin # VTE ppx: LMWH In my clinical judgment, the patient requires continued hospitalization for the following reasons: IV ABX, fever Quality Stroke Does the patient have a stroke diagnosis?: No VTE Prior VTE?: No VTE Risk Level:: Medical - moderate - high VTE Device Contraindication: Treatment Not Indicated VTE Drug Contraindication: N/A - Med Ordered
--- NOTE | 2021-10-26 13:08 | P.CNID_ITS ---
History of Present Illness Data of Consult Service Date: 10/26/21 Requesting physician: Dasha Zavala Primary Care Provider: MARNIE Rivera- HPI Reason for consult: fever of unknown origin He presents to ER with one week right axilla discomfort. He had temperature of 103 with tachycardia of 122 on arrival. He initially was seen in ER and given Augmentin and no improvement. He then was admitted and is taking Vancomycin now. He has nightly temperature of 102.1 Review of Systems Review of Systems: Yes all other systems are reviewed and are negative [facility] Past Medical History Medical History Abdominal pain Acute hepatitis Alcohol dependence Alcohol withdrawal Anxiety Benign essential hypertension Bipolar depression Diabetes mellitus GERD without esophagitis History of alcoholic hepatitis HTN (hypertension) Mixed hyperlipidemia Obesity (BMI 30-39.9) Other bursal cyst, left ankle and foot Other cyst of bone, left hand Family History Family History Father Advanced cirrhosis of liver Alcoholic cirrhosis Substance use disorder Mother Dementia Maternal Grandfather Substance use disorder Sister Substance use disorder Family history: reviewed and not pertinent Surgical History Surgical History No pertinent past surgical history Social History Social History Household Members: Significant Other Housing: House Do you presently have visiting nurse or other home services: No Alcohol intake: former Patient Tobacco Use Status: Former Tobacco user Tobacco use type: Cigarette Years Smoked: quit 10 years ago e-Cigarette/Vaping Use: Never Used Second Hand Smoke Exposure: No service: No 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 Cognitive needs: No Hearing needs: No Vision needs: No Meds Allergies Allergy/AdvReac Type Severity Reaction Status Date / Time No Known Allergies Allergy Verified 10/22/21 09:08 [No Known Allergies*] Active Medications: Current Medications Acetaminophen (Acetaminophen 325 Mg Tablet) 650 mg PO Q6H PRN PRN Reason: Pain, Mild (Pain Scale 1-3) Last Admin: 10/26/21 00:31 Dose: 650 mg Atorvastatin Calcium (Atorvastatin Calcium 40 Mg Tablet) 40 mg PO DAILY [facility] Last Admin: 10/26/21 10:43 Dose: 40 mg Dextrose (Dextrose 50 % 25 Gm/50 Ml Syringe) 25 gm IVPUSH Q15M PRN; Protocol PRN Reason: per Hypoglycemia Standing Ord. Docusate Sodium (Docusate Sodium 100 Mg Capsule) 100 mg PO DAILY PRN PRN Reason: Constipation Last Admin: 10/26/21 10:55 Dose: 100 mg Enoxaparin Sodium (Enoxaparin Sodium 40 Mg/0.4 Ml Syringe) 40 mg SUBCUT Q24H [facility] Last Admin: 10/25/21 22:51 Dose: 40 mg Glucose (Glucose Gel 15 Gm Gel..Gram.) 15 gm PO Q15M PRN; Protocol PRN Reason: per Hypoglycemia Standing Ord. Vancomycin HCl 1,500 mg/ (Sodium Chloride) 500 mls @ 333.333 mls/hr IV Q12H [facility] Last Infusion: 10/26/21 12:39 Dose: Infused Insulin Human Lispro (Insulin Lispro 100 Unit/Ml 3 Ml Vial) 0.1 - 10 unit SUBCUT QIDACHS [facility]; Protocol Last Admin: 10/26/21 11:53 Dose: 2 unit Labetalol HCl (Labetalol Hcl 100 Mg Tablet) 300 mg PO BID [facility] Last Admin: 10/26/21 10:43 Dose: 300 mg Omeprazole (Omeprazole 40 Mg Capsule.Dr) 40 mg PO DAILY@0630 [facility] Last Admin: 10/26/21 05:46 Dose: 40 mg Ondansetron HCl (Ondansetron Hcl 4 Mg/2 Ml Vial) 4 mg IVPUSH Q8H PRN PRN Reason: Nausea and Vomiting Last Admin: 10/25/21 04:24 Dose: 4 mg Oxycodone HCl (Oxycodone Hcl Immed Release 5 Mg Tablet) 5 mg PO Q6H PRN PRN Reason: severe pain Last Admin: 10/26/21 07:46 Dose: 5 mg Pharmacy Consult (Consult Rx Vancomycin Dosing) 1 each MISCELLANE DAILY PRN PRN Reason: Consult order Pharmacy Consult (Consult Rx Etoh Phenob Po Only) 1 each MISCELLANE ONCE PRN; Protocol PRN Reason: Consult order Phenobarbital (Phenobarbital 15 Mg Tablet) 45 mg PO BID [facility] Stop: 10/26/21 21:01 Last Admin: 10/26/21 10:43 Dose: 45 mg Phenobarbital (Phenobarbital 30 Mg Tablet) 30 mg PO BID [facility] Stop: 10/28/21 21:01 Phenobarbital (Phenobarbital 30 Mg Tablet) 30 mg PO DAILY [facility] Stop: 10/30/21 09:01 Sodium Chloride (0.9 % Sodium Chloride Flush 3 Ml Syringe) 3 ml IVFLUSH QSHIFT [facility] Last Admin: 10/26/21 07:48 Dose: 3 ml Trazodone HCl (Trazodone Hcl 100 Mg Tablet) 200 mg PO BEDTIME [facility] Last Admin: 10/25/21 19:55 Dose: 200 mg Zolpidem Tartrate (Zolpidem Tartrate 5 Mg Tablet) 5 mg PO BEDTIME PRN PRN Reason: Insomnia Last Admin: 10/25/21 22:50 Dose: 5 mg Home Medications Medication Instructions Recorded Confirmed Last Taken Type labetalol 300 mg tablet 1 tab PO BID 09/23/21 10/22/21 10/22/21 09:00 History metformin 500 mg tablet 1 tab PO BID 09/23/21 10/22/21 10/22/21 09:00 History rosuvastatin 10 mg tablet 1 tab PO DAILY 09/23/21 10/22/21 10/22/21 09:00 History Physical Exam Vital Signs: Vital Signs: Last Vital Signs Temp 99.6 F 10/26/21 07:53 Pulse 74 10/26/21 07:53 Resp 16 10/26/21 07:53 BP 131/81 10/26/21 07:53 Pulse Ox 97 10/26/21 07:53 O2 Del Method 10/26/21 04:00 BMI result Body Mass Index 31.2 Const: General: cooperative HEENT: Head: Yes normal to inspection Face and sinus: Yes normal facial exam Mouth: Normal oral and palatal mucosa present Teeth and gingiva: dentition normal Eyes: General: appearance normal, both eyes and all related structures Pupils: Equal, round and reactive pupils present Resp: Effort & Inspection: normal respiratory effort Cardio: Rate: regular rate Rhythm: regular rhythm GI: Palpation (GI): Soft to palpation and nontender : General: Yes no CVA tenderness Back/Spine/Pelvis: Back: no CVA tenderness Skin: Other: right axilla packed area,healing Neuro: General: moves all extremities Cranial nerves: Yes Equal, round and reactive pupils present Extrem: General: Yes normal to inspection Psych: Appearance: grossly normal Results Labs CBC & Chem 7: 10/26/21 08:33 10/26/21 05:39 Labs: Short CBC 10/26/21 Range/Units 08:33 WBC 5.9 (4.8-10.8) X10*3/uL Hgb 10.9 L (14.0-18.0) g/dl Hct 30.9 L (42.0-52.0) % Plt Count 165 D (160-400) X10*3/uL BMP 10/26/21 05:39 Creatinine 0.83 Microbiology Microbiology Results: Microbiology 10/23/21 10:24 Axilla Right Gram Stain - Final 10/23/21 10:24 Axilla Right Routine Culture - Final Methicillin Res Staph Aureus 10/23/21 21:59 Blood - Venous Blood Culture - Preliminary No growth after 48 hours. 10/23/21 21:55 Blood - Venous Blood Culture - Preliminary No growth after 48 hours. 10/22/21 18:59 Blood - Venous Blood Culture - Preliminary No growth after 48 hours. 10/22/21 18:51 Blood - Venous Blood Culture - Preliminary No growth after 48 hours. Assessment and Plan (1) Sepsis: Status: Acute fever of unknown origin possibly due to MRSA axilla wound but is improving He also has been on phenobarbital which can cause of fever (2) Cellulitis: Status: Acute (3) Abscess of axilla, right: Status: Acute Plan If not better tonight and no highgrade would try linezolid 600 mg every 12 hours Otherwise continue Vancomycin and switch to po Doxycycline 100 mg bid for 14 d outpatient. Check nares for MRSA and treat if positive.
[2021-10-26 16:00] VITALS: BP 129/76; PULSE 66; RESP 18; TEMP 36.7; O2SAT 96
[2021-10-26 16:44] LABS: Glucose, Whole Blood 129 mg/dL (60-115)
[2021-10-26 20:00] VITALS: BP 122/75; PULSE 63; RESP 18; TEMP 36.4; O2SAT 94
[2021-10-26 20:25] LABS: Glucose, Whole Blood 187 mg/dL (60-115)
[2021-10-26] MEDS: traZODone HCL 100 MG TABLET 200 MG PO (20:57)
[2021-10-26] MEDS: Zolpidem Tartrate 5 MG TABLET PO (22:48)
[2021-10-27] VITALS: BP 120/75; PULSE 59; RESP 18; TEMP 36.4; O2SAT 95
[2021-10-27 04:00] VITALS: BP 120/69; PULSE 58; RESP 18; TEMP 36.4; O2SAT 96
[2021-10-27] MEDS: Omeprazole 40 MG CAPSULE.DR PO (05:48)
[2021-10-27 06:43] LABS: Creatinine Clr Calc Pharmacy 110.5; Estimated Glomerular Filt Rate > 60
[2021-10-27 07:22] VITALS: BP 131/77; PULSE 59; RESP 16; TEMP 36.2; O2SAT 97
[2021-10-27 07:34] LABS: Glucose, Whole Blood 143 mg/dL (60-115)
[2021-10-27 09:23] LABS: Vancomycin Trough 13.1 mcg/mL (10.0-20.0)
[2021-10-27] MEDS: vancomycin HCL 1,500 MG in 0.9 % Sodium Chloride 500 ML 333.33 MG IV (10:07)
[2021-10-27] MEDS: Atorvastatin Calcium 40 MG TABLET PO (10:08)
[2021-10-27] MEDS: PHENobarbitaL 30 MG TABLET PO (10:08)
[2021-10-27] MEDS: Labetalol HCL 100 MG TABLET 300 MG PO (10:08)
[2021-10-27] MEDS: 0.9 % Sodium Chloride Flush 3 ML SYRINGE IVFLUSH (10:08)
--- NOTE | 2021-10-27 10:25 | PM.DS ---
DS: Providers Provider Date of Service: 10/27/21 Date of admission: 10/22/21 22:29 Date of discharge: 10/27/21 Primary care physician: MARNIE Rivera- Consults: 10/24/21 10:05 Addiction Medicine Routine Consulting Provider: Cheri Méndez Reason for consultation: AUD Consult to Care Team Routine Comment: Reason for consultation: AUD 10/25/21 07:59 Consult to General Surgery Routine Consulting Provider: Sallie Berkowitz Reason for consultation: incompletely drained R axillary abscess 10/25/21 08:00 Consult to Infectious Diseases Routine Consulting Provider: Rhona Martinez Reason for consultation: persistent fever despite drainage of R axillary abscess DS: Diagnosis Discharge Diagnosis (1) Sepsis: Status: Acute (2) Cellulitis: Status: Acute (3) Abscess of axilla, right: Status: Acute (4) Alcohol use disorder, moderate, dependence: Status: Acute (5) Alcohol withdrawal: Status: Acute DS: Summary Hospital Course Hospital Course: from admission H+P by hospitalist Tito Rendon MD, 10/22/21: 56-year-old male with past medical history of anxiety, HTN, bipolar depression, diabetes, HLD, history of alcohol abuse who presents to the hospital with complaints of an abscess under his right armpit.? Patient reports that it started as a pea size lump under his armpit about a week ago, he was seen at urgent care and was given Augmentin for 7 days which he almost has completed, the abscess continued to grow and became the size of a golf ball therefore was referred to surgery by urgent care.? Patient underwent I&D on the a.m. of ED presentation.? He reports that once he got home he was doing well but several hours later he developed severe pain, drainage, occult surgical office and was asked to come to the ED instead. Patient reports that he had a fever of 103 at home, he has chills, he denies any chest pain, no shortness of breath, no abdominal pain nausea or vomiting, no diarrhea constipation, no urinary symptoms and no lower extremity edema. On arrival to the ED patient vitals are significant for temperature of 103 degrees, heart rate of 122, respiratory rate of 22, blood pressure 158/87 Labs are significant for WBC count of 7.6, hemoglobin of 13.3, hematocrit 37.9, lactic acid of 2.2, Patient met SIRS criteria, started on IV antibiotics and will be admitted for further management 56yo M with hx AUD, HTN, DM2, bipolar disorder who presented with severe pain and drainage after office I+D of R axillary abscess by Dr Wadsworth after 1 wk of amox/clav did not resolve the initial infection. He was admitted for severe sepsis related to purulent cellulitis. The wound culture grew MRSA. He was treated with vancomycin IV for 5 days. A repeat I+D at bedside was done on 10/25/21 due to persistent fever and fluctuance. He finally defervesced and was discharged home with 14 days of doxycycline and instructions to follow up with his PCP or surgeon in 1 week for wound check. He was also treated with phenobarbital for alcohol withdrawal and seen by Addiction Medicine. He was prescribed naltrexone to maintain sobriety and will follow up with [facility] in 1 week for follow-up of AUD. Time Spent with Patient Time attestation: Total time spent providing and/or coordinating discharge services: Discharge coordination time: Greater than 30 minutes Quality: Safe Use of Opioids Does Pt have an Active Cancer Diagnosis on the Problem List?: No Quality: Stroke Does the patient have a stroke diagnosis?: No Physical Exam Vital Signs: Vital Signs: Last Vital Signs Temp 97.2 F 10/27/21 07:22 Pulse 59 10/27/21 07:22 Resp 16 10/27/21 07:22 BP 131/77 10/27/21 07:22 Pulse Ox 97 10/27/21 07:22 O2 Del Method 10/27/21 07:22 BMI result Body Mass Index 31.2 Gen: NAD HEENT: sclera anicteric, moist mucus membranes Neck: supple Lungs: clear to auscultation bilaterally Heart: regular rate and rhythm, no murmurs Abd: soft, non-tender, non-distended Ext: no edema Skin: warm/well-perfused, I+D wound? R axilla with no residual purulence, minimal surrounding erythema + induration Neuro: alert and oriented x3, no focal findings Psych: appropriate affect DS: Data Data Completed and Pending Completed studies during hospitalization [Text1]: Laboratory Results WBC 5.9 X10*3/uL (4.8-10.8) 10/26/21 08:33 RBC 3.44 X10*6/uL (4.60-5.80) L 10/26/21 08:33 Hgb 10.9 g/dl (14.0-18.0) L 10/26/21 08:33 Hct 30.9 % (42.0-52.0) L 10/26/21 08:33 MCV 89.8 fL (80.0-98.0) 10/26/21 08:33 MCH 31.7 pg (27.0-33.0) 10/26/21 08:33 MCHC 35.3 g/dl (31.0-36.0) 10/26/21 08:33 RDW 12.9 % (11.0-16.0) 10/26/21 08:33 Plt Count 165 X10*3/uL (160-400) D 10/26/21 08:33 MPV 9.7 fL (9.4-12.4) 10/26/21 08:33 Immature Gran % (Auto) 2.8 % (0.0-0.4) H 10/23/21 06:16 Neut % (Auto) 69.4 % (45-73) 10/23/21 06:16 Lymph % (Auto) 16.5 % (20-40) L 10/23/21 06:16 [place] % (Auto) 10.4 % (2-11) 10/23/21 06:16 Eos % (Auto) 0.5 % (0-4) 10/23/21 06:16 Baso % (Auto) 0.4 % (0-2) 10/23/21 06:16 Lymph # (Auto) 0.9 X10*3/uL (1.2-4.9) L 10/23/21 06:16 [place] # (Auto) 0.6 X10*3/uL (0.1-1.2) 10/23/21 06:16 Eos # (Auto) 0.0 X10*3/uL (0.0-0.4) 10/23/21 06:16 Baso # (Auto) 0.0 X10*3/uL (0.0-0.2) 10/23/21 06:16 Abs Immat Gran (auto) 0.16 X10*3/uL (0.00-0.03) H 10/23/21 06:16 Absolute Neuts (auto) 4.0 x10*3/uL (2.0-8.3) 10/23/21 06:16 Absolute Nucleated RBC 0.000 X10*3/uL (0.0-0.012) 10/26/21 08:33 Nucleated RBC % (auto) 0.0 /100WBC (0.0-0.2) 10/26/21 08:33 Sodium 139 mmol/L (135-145) 10/23/21 06:16 Potassium 3.7 mmol/L (3.3-5.1) 10/23/21 06:16 Chloride 103 mmol/L (96-108) 10/23/21 06:16 Carbon Dioxide 27 mmol/L (22-29) 10/23/21 06:16 Anion Gap 13 (12-20) 10/23/21 06:16 BUN 13 mg/dL (9-16) 10/23/21 06:16 Creatinine 0.82 mg/dL (0.5-1.4) 10/27/21 05:53 Estim Creat Clear Calc 110.5 10/27/21 05:53 Estimated GFR > 60 10/27/21 05:53 POC Glucose 143 mg/dL (60-115) H 10/27/21 07:28 Random Glucose 145 mg/dL (60-115) H 10/23/21 06:16 Estimat Average Glucose 137 mg/dL 10/23/21 06:16 Hemoglobin A1c % 6.4 % 10/23/21 06:16 Lactic Acid 1.9 mmol/L (0.5-2.0) 10/23/21 21:55 Lactic Acid F/U @ 2Hr 1.6 mmol/L (0.5-2.0) 10/22/21 21:27 Calcium 8.3 mg/dL (8.4-10.2) L D 10/23/21 06:16 Troponin I High Sens 11.2 ng/L (<3.5-35.0) 10/23/21 09:31 Vancomycin Trough 13.1 mcg/mL (10.0-20.0) 10/27/21 08:48 Ethyl Alcohol < 10 mg/dL 10/22/21 18:23 Influenza Type A (PCR) NEGATIVE (Negative) 10/22/21 19:16 Influenza Type B (PCR) NEGATIVE (Negative) 10/22/21 19:16 RSV RNA Qual (PCR) NEGATIVE (Negative) 10/22/21 19:16 SARS-CoV-2 RNA (RT-PCR) NEGATIVE (Negative) 10/22/21 19:[address] 10/22/21 20:30 IMPRESSION: No acute intracranial pathology. Labs on day of discharge: Preliminary micro results at discharge 10/23/21 21:59 Blood Culture - Preliminary Blood - Venous No growth after 48 hours. 10/23/21 21:55 Blood Culture - Preliminary Blood - Venous No growth after 48 hours. 10/22/21 18:59 Blood Culture - Preliminary Blood - Venous No growth after 48 hours. 10/22/21 18:51 Blood Culture - Preliminary Blood - Venous No growth after 48 hours. Discharge Plan Discharge Patient Disposition: Home, Self-Care Discharge Diagnosis: sepsis due to cellulitis/abscess, alcohol withdrawal/alcohol use disorder Referrals: Miky Avitia FNP-MATTY [Primary Care Provider] - 1 Week Setve Wadsworth MD [Physician] - 1 Week Cheri Méndez CNP [Nurse Practitioner] - 1 Week Discharge Medications: New doxycycline monohydrate 100 mg tablet 100 mg PO BID Qty: 28 0RF naltrexone 50 mg tablet 50 mg PO DAILY Qty: 30 0RF Continued metformin 500 mg tablet 1 tab PO BID rosuvastatin 10 mg tablet 1 tab PO DAILY labetalol 300 mg tablet 1 tab PO BID omeprazole 40 mg Capsule,Delayed Release(Dr/Ec) 40 mg PO DAILY@0630 Qty: 30 0RF trazodone 100 mg Tablet 200 mg PO BEDTIME Qty: 30 1RF diclofenac sodium 75 mg tablet,delayed release (DR/EC) 75 mg PO BID PRN (Reason: pain) 30 Days Qty: 30 0RF Rx Instructions: take it with food Discontinued chlordiazepoxide HCl 25 mg capsule 25 mg PO TID PRN (Reason: alcohol withdrawal) Qty: 9 0RF amoxicillin-pot clavulanate [Augmentin XR] 1,000-62.5 mg tablet extended release 12 hr 1 tab PO BID 7 Days Qty: 14 0RF Discharge Orders: Discharge Order (Routine); Ordered 10/27/21 Ordered By: Dasha Zavala Diet: Diabetic diet Activity on Discharge: As tolerated Stand Alone Forms: Patient Portal Discharge page Care Plan Goals: cure of infection sobriety Health Concerns: sepsis due to cellulitis/abscess - take doxycycline 100 mg twice daily for 14 days - see your primary care doctor or Dr Wadsworth from general surgery in 1 week - keep wound covered and dry alcohol withdrawal/alcohol use disorder - sobriety resources - naltrexone 50 mg daily - see [facility] in 1 week return to hospital if worsening symptoms Plan of Treatment: see above Assessment: See Discharge Summary
--- NOTE | 2021-10-27 10:28 | MHC.RECOVRN ---
Pt has follow up appt with the [facility] on 11/12 at 1PM, telehealth with Cheri Méndez APRN. CM and pt aware. 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
[2021-10-27 11:20] VITALS: BP 136/80; PULSE 60; RESP 16; TEMP 36.2; O2SAT 93
[2021-10-27 11:34] LABS: Glucose, Whole Blood 224 mg/dL (60-115)
--- NOTE | 2021-10-27 11:42 | MHC.CM.PN ---
HOME -SELF CARE WITH OUTPATIENT FOLLOW UP ADDICTION MEDICINE. PATIENT IS AWARE OF DATE AND TIME, AND THAT MEETING IS VIRTUAL.
[2021-10-27] MEDS: Magnesium Hydrox/Alum Hydrox 30 ML ORAL.SUSP PO (12:18)
[2021-10-27] MEDS: Insulin Lispro 100 UNIT/ML 3 ML VIAL SUBCUT (12:18)
[2021-10-27] MEDS: oxyCODONE HCl Immed Release 5 MG TABLET PO (13:38)
[2021-10-27 15:54] VITALS: BP 132/77; PULSE 60; RESP 18; TEMP 36.3; O2SAT 96
[2021-10-27 16:13] LABS: Glucose, Whole Blood 149 mg/dL (60-115)
[2021-10-28 19:21] LABS: A. Phagocytphilium DNA,RT-PCR NOT DETECTED (NOT DETECTED); Babesia Microti DNA, RT-PCR NOT DETECTED (NOT DETECTED); Borrelia Miyamotoi,DNA RT-PCR NOT DETECTED (NOT DETECTED); E.Chaffeensis DNA RT-PCR NOT DETECTED (NOT DETECTED); Lyme(Borrelia ssp)DNA RT-PCR NOT DETECTED (NOT DETECTED)
[2021-10-29 08:37] LABS: Source-Tick borne disease BLOOD
== END 2021-10-27 17:35 | disposition home or self-care (01) | DRG 603 ==
LOC: HO.ED 21:46 → HO.EDOVER 22:38 → HO.S3 10-24 03:14
PROVIDERS: Physician Assistant; Admitting Provider Internal Medicine; Emergency Provider Emergency Medicine; PCP Nurse Practitioner Family; Visit Provider Family Medicine
DX: L02.411 Cutaneous abscess of right axilla (principal); F10.239 Alcohol dependence with withdrawal, unspecified; L03.111 Cellulitis of right axilla; F31.9 Bipolar disorder, unspecified; I10 Essential (primary) hypertension; E78.5 Hyperlipidemia, unspecified; B95.62 Methicillin resistant Staphylococcus aureus infection as the cause of diseases classified elsewhere; F41.9 Anxiety disorder, unspecified; Z20.822 Contact with and (suspected) exposure to COVID-19; Z87.891 Personal history of nicotine dependence; Z79.84 Long term (current) use of oral hypoglycemic drugs; Z79.899 Other long term (current) drug therapy
CPT/HCPCS: 0241U; 36415; 70450; 80048; 80202; 82077; 82565; 82947; 83036; 83605; 84484; 85025; 85027; 87040; 87071; 87077; 87186; 87205; 87798; 87801; 93005; 96361; 96374; 96375; 99285; J0696; J1650; J2270; J2405; J2543; J3370

== ENCOUNTER 2021-11-09 04:35 | Emergency (ER) | payer OTHER, SELFPAY ==
[2021-11-09 04:47] VITALS: BP 119/72; PULSE 74; RESP 20; TEMP 36.7; O2SAT 95; BMI 29.7
[2021-11-09 05:04] VITALS: BP 113/79; PULSE 78; RESP 16; TEMP 36.8; O2SAT 94
--- NOTE | 2021-11-09 05:05 | ED_ITS ---
HPI - Alcohol General Chief Complaint: ETOH/Substance Use Stated Complaint: withdrawls, hearing voices Time Seen by Provider: 11/09/21 04:38 Source: patient and family Mode of arrival: ambulatory Limitations: no limitations History of Present Illness MD complaint: alcohol withdrawal and desires rehab Last drink: Hours (ago) Chronic alcohol use: Yes Previous visits for alcohol intoxication: Yes Recent trauma: No Associated symptoms: nausea and tremors Treatments prior to arrival: none Related Data Home Medications Medication Instructions Recorded Confirmed labetalol 300 mg tablet 1 tab PO BID 09/23/21 10/22/21 metformin 500 mg tablet 1 tab PO BID 09/23/21 10/22/21 Previous Rx's Medication Instructions Recorded omeprazole 40 mg capsule,delayed 40 mg PO DAILY@0630 #30 caps 09/28/21 release trazodone 100 mg tablet 200 mg PO BEDTIME #30 tabs 09/28/21 diclofenac sodium 75 mg 75 mg PO BID PRN pain 30 days #30 10/15/21 tablet,delayed release tabs doxycycline monohydrate 100 mg 100 mg PO BID #28 tabs 10/27/21 tablet naltrexone 50 mg tablet 50 mg PO DAILY #30 tabs 10/27/21 rosuvastatin 10 mg tablet 10 mg PO DAILY #90 tabs 10/28/21 Allergies Allergy/AdvReac Type Severity Reaction Status Date / Time No Known Allergies Allergy Verified 10/22/21 09:08 [No Known Allergies*] Review of Systems Review of Systems: Constitutional : No Fever, No Chills ENT/Mouth : No Ear Pain, No Nasal Congestion, No sore throat Eyes: No Eye Pain, No Swelling, No Redness Cardiovascular : No Chest Pain, No SOB Respiratory : No Cough, No Sputum, No Dyspnea Gastrointestinal : pos Nausea, No Vomiting, No Diarrhea, No Hematochezia, No Melena Genitourinary : No Dysuria, No Urinary Frequency, No Hematuria Musculoskeletal : No Myalgias Skin : No Skin Lesions, No rash Neuro : No Weakness, No Numbness, No Paresthesias, No Dizziness, No Headache Psych : positive Anxiety, no Depression, no SI/HI Heme/Lymph: No Lymphadenopathy Endocrine : No Polyuria, No Polydipsia All other systems reviewed and are negative [facility] Past Medical History Attestation statement: The following information was validated with the patient. Medical History Abdominal pain Abscess of axilla, right Acute hepatitis Alcohol dependence Alcohol use disorder, moderate, dependence Alcohol withdrawal Anxiety Benign essential hypertension Bipolar depression Cellulitis Diabetes mellitus GERD without esophagitis History of alcoholic hepatitis HTN (hypertension) Mixed hyperlipidemia Obesity (BMI 30-39.9) Other bursal cyst, left ankle and foot Other cyst of bone, left hand Sepsis Surgical History No pertinent past surgical history Family History Family History Father Advanced cirrhosis of liver Alcoholic cirrhosis Substance use disorder Mother Dementia Maternal Grandfather Substance use disorder Sister Substance use disorder Social History Social History Household Members: Significant Other Housing: House Do you presently have visiting nurse or other home services: No Alcohol intake: former Patient Tobacco Use Status: Former Tobacco user Tobacco use type: Cigarette Years Smoked: quit 10 years ago e-Cigarette/Vaping Use: Never Used Second Hand Smoke Exposure: No Advance Directives: Yes Advance Directives on File: Yes Advance Directives Date on File: 10/23/21 service: No 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 Cognitive needs: No Hearing needs: No Vision needs: No Physical Exam ED Vital Signs: Vital Signs - 24 hr 11/09/21 04:47 11/09/21 05:04 Temperature 98.1 F 98.3 F Pulse Rate 74 78 Respiratory Rate 20 16 Blood Pressure 119/72 113/79 Pulse Oximetry 95 94 Oxygen Delivery Method Room Air Room Air BMI result Body Mass Index 29.7 Appearance: Alert. Oriented X3. No acute distress. Anxious Eyes: Pupils equal, round and reactive to light. ENT: Pharynx normal. no tongue fasciculations Neck: Normal inspection. Neck supple. CVS: Normal heart rate and rhythm. Pulses normal. Respiratory: No respiratory distress. Breath sounds normal. Abdomen: Soft and nontender. Skin: Skin warm and dry. Normal skin color. Normal skin turgor. Extremities: No lower extremity edema. No calf ttp Neuro: Oriented X 3. No motor deficit. No sensory deficit. Mild tremors Course Course Course Narrative: Physician observation started at 542am. Patient placed in physician observation because the patient needed more time for CARE team/recovery team to help with ETOH detox. At the time observation was started the patient's vitals were stable, patient is alert and oriented but slightly anxious. Neuro: nonfocal, CV RRR, Lungs clear MDM - Alcohol MDM Narrative Medical decision making narrative: 56 yo male with hx of ETOH abuse, GERD, HLD, HTN here with c/o ETOH withdrawal - appears mild right now VS stable and mild tremors he is requesting help with detox at this time will obtain labs and start on PRN PO ativan and refer to CARE team/recovery team. Lab Data Result diagrams: 11/09/21 05:12 11/09/21 05:12 Labs: Lab Results 11/09/21 11/09/21 11/09/21 Range/Units 05:12 05:12 05:12 WBC 5.5 (4.8-10.8) X10*3/uL RBC 4.20 L D (4.60-5.80) X10*6/uL Hgb 13.1 L D (14.0-18.0) g/dl Hct 36.7 L (42.0-52.0) % MCV 87.4 (80.0-98.0) fL MCH 31.2 (27.0-33.0) pg MCHC 35.7 (31.0-36.0) g/dl RDW 13.2 (11.0-16.0) % Plt Count 262 D (160-400) X10*3/uL MPV 9.0 L (9.4-12.4) fL Immature Gran % (Auto) 0.4 (0.0-0.4) % Neut % (Auto) 43.6 L (45-73) % Lymph % (Auto) 46.4 H (20-40) % [place] % (Auto) 6.0 (2-11) % Eos % (Auto) 2.7 (0-4) % Baso % (Auto) 0.9 (0-2) % Lymph # (Auto) 2.5 (1.2-4.9) X10*3/uL [place] # (Auto) 0.3 (0.1-1.2) X10*3/uL Eos # (Auto) 0.2 (0.0-0.4) X10*3/uL Baso # (Auto) 0.1 (0.0-0.2) X10*3/uL Abs Immat Gran (auto) 0.02 (0.00-0.03) X10*3/uL Absolute Neuts (auto) 2.4 (2.0-8.3) x10*3/uL Absolute Nucleated RBC 0.000 (0.0-0.012) X10*3/uL Nucleated RBC % (auto) 0.0 (0.0-0.2) /100WBC Sodium 141 (135-145) mmol/L Potassium 4.1 (3.3-5.1) mmol/L Chloride 105 (96-108) mmol/L Carbon Dioxide 24 (22-29) mmol/L Anion Gap 16 (12-20) BUN 11 (9-16) mg/dL Creatinine 0.86 (0.5-1.4) mg/dL Estim Creat Clear Calc 102.9 Estimated GFR > 60 Random Glucose 115 (60-115) mg/dL Calcium 9.4 D (8.4-10.2) mg/dL Total Bilirubin 0.3 (0.0-1.0) mg/dL Direct Bilirubin < 0.2 (0.0-0.5) mg/dL AST 21 (5-37) U/L ALT 26 (0-40) U/L Alkaline Phosphatase 57 D (39-117) U/L Total Protein 7.4 (6.5-8.0) g/dL Albumin 4.6 (3.5-5.0) g/dL Ethyl Alcohol mg/dL COVID-19 ([facility]) Negative (Negative) COVID-19 Clin Com See Note 11/09/21 Range/Units 05:12 WBC (4.8-10.8) X10*3/uL RBC (4.60-5.80) X10*6/uL Hgb (14.0-18.0) g/dl Hct (42.0-52.0) % MCV (80.0-98.0) fL MCH (27.0-33.0) pg MCHC (31.0-36.0) g/dl RDW (11.0-16.0) % Plt Count (160-400) X10*3/uL MPV (9.4-12.4) fL Immature Gran % (Auto) (0.0-0.4) % Neut % (Auto) (45-73) % Lymph % (Auto) (20-40) % [place] % (Auto) (2-11) % Eos % (Auto) (0-4) % Baso % (Auto) (0-2) % Lymph # (Auto) (1.2-4.9) X10*3/uL [place] # (Auto) (0.1-1.2) X10*3/uL Eos # (Auto) (0.0-0.4) X10*3/uL Baso # (Auto) (0.0-0.2) X10*3/uL Abs Immat Gran (auto) (0.00-0.03) X10*3/uL Absolute Neuts (auto) (2.0-8.3) x10*3/uL Absolute Nucleated RBC (0.0-0.012) X10*3/uL Nucleated RBC % (auto) (0.0-0.2) /100WBC Sodium (135-145) mmol/L Potassium (3.3-5.1) mmol/L Chloride (96-108) mmol/L Carbon Dioxide (22-29) mmol/L Anion Gap (12-20) BUN (9-16) mg/dL Creatinine (0.5-1.4) mg/dL Estim Creat Clear Calc Estimated GFR Random Glucose (60-115) mg/dL Calcium (8.4-10.2) mg/dL Total Bilirubin (0.0-1.0) mg/dL Direct Bilirubin (0.0-0.5) mg/dL AST (5-37) U/L ALT (0-40) U/L Alkaline Phosphatase (39-117) U/L Total Protein (6.5-8.0) g/dL Albumin (3.5-5.0) g/dL Ethyl Alcohol 243 mg/dL COVID-19 ([facility]) (Negative) COVID-19 Clin Com Discharge Plan Discharge Clinical Impression: Alcohol abuse with withdrawal Patient Disposition: Still a Patient Prescriptions: No Action rosuvastatin 10 mg tablet 10 mg PO DAILY Qty: 90 1RF doxycycline monohydrate 100 mg tablet 100 mg PO BID Qty: 28 0RF naltrexone 50 mg tablet 50 mg PO DAILY Qty: 30 0RF metformin 500 mg tablet 1 tab PO BID labetalol 300 mg tablet 1 tab PO BID omeprazole 40 mg Capsule,Delayed Release(Dr/Ec) 40 mg PO DAILY@0630 Qty: 30 0RF trazodone 100 mg Tablet 200 mg PO BEDTIME Qty: 30 1RF diclofenac sodium 75 mg tablet,delayed release (DR/EC) 75 mg PO BID PRN (Reason: pain) 30 Days Qty: 30 0RF Rx Instructions: take it with food
[2021-11-09] MEDS: Thiamine HCL 100 MG TABLET PO (05:14)
[2021-11-09] MEDS: LORazepam 1 MG TABLET 2 MG PO ×3 (05:14→10:05)
[2021-11-09 05:21] LABS: Basophils Absolute Auto 0.1 X10*3/uL (0.0-0.2); Basophils Percent Auto 0.9 % (0-2); Eosinophils Absolute Auto 0.2 X10*3/uL (0.0-0.4); Eosinophils Percent Auto 2.7 % (0-4); Hematocrit 36.7 % (42.0-52.0); Hemoglobin 13.1 g/dl (14.0-18.0); Imm Gran Abs Auto 0.02 X10*3/uL (0.00-0.03); Imm Gran Pct Auto 0.4 % (0.0-0.4); Lymphocytes Absolute Auto 2.5 X10*3/uL (1.2-4.9); Lymphocytes Percent Auto 46.4 % (20-40); MANUAL DIFF FLAG NO; Mean Corpuscular HGB Conc 35.7 g/dl (31.0-36.0); Mean Corpuscular Hemoglobin 31.2 pg (27.0-33.0); Mean Corpuscular Volume 87.4 fL (80.0-98.0); Monocytes Absolute Auto 0.3 X10*3/uL (0.1-1.2); Neutrophils Absolute Auto 2.4 x10*3/uL (2.0-8.3); Neutrophils Percent Auto 43.6 % (45-73); Platelet Count 262 X10*3/uL (160-400); Red Cell Distribution Width 13.2 % (11.0-16.0); White Blood Count 5.5 X10*3/uL (4.8-10.8)
[2021-11-09 05:33] LABS: COVID-19 Test Negative (Negative)
[2021-11-09 05:37] LABS: Ethanol 243 mg/dL
[2021-11-09 05:40] LABS: Alanine Aminotransferase 26 U/L (0-40); Albumin Level 4.6 g/dL (3.5-5.0); Alkaline Phosphatase 57 U/L (39-117); Anion Gap 16 (12-20); Aspartate Amino Transferase 21 U/L (5-37); Bilirubin Direct < 0.2 mg/dL (0.0-0.5); Bilirubin Total 0.3 mg/dL (0.0-1.0); Blood Urea Nitrogen 11 mg/dL (9-16); Calcium 9.4 mg/dL (8.4-10.2); Carbon Dioxide 24 mmol/L (22-29); Chloride 105 mmol/L (96-108); Creatinine Clr Calc Pharmacy 102.9; Estimated Glomerular Filt Rate > 60; Glucose Random 115 mg/dL (60-115); Potassium 4.1 mmol/L (3.3-5.1); Sodium 141 mmol/L (135-145); Total Protein 7.4 g/dL (6.5-8.0)
[2021-11-09 05:50] LABS: Amphetamine Screen Urine Not Detected (Not Detect); Barbiturates, Urine Not Detected (Not Detect); Benzodiazepines Screen Urine Not Detected (Not Detect); Cannabinoid Screen Urine POSITIVE (Not Detect); Cocaine Screen Urine Not Detected (Not Detect); Fentanyl, urine POSITIVE (Not Detect); Opiate Screen Urine Not Detected (Not Detect); Phencyclidine Screen Urine Not Detected (Not Detect)
[2021-11-09 07:41] VITALS: BP 104/74; PULSE 71; RESP 18; TEMP 36.6; O2SAT 92
--- NOTE | 2021-11-09 08:01 | PC.NURSE ---
pt a/o x 3 no sob/marielos noted skin pink warm dry speaks in full sentences. ciwa scale -6, aware. pt med x 1 with ativan 2mg po. pt aware of plan of care.
--- NOTE | 2021-11-09 08:03 | PC.NURSE ---
pt denies any si/hi. pt is waiting to be seen by the chief engineer drilling and recovery.
--- NOTE | 2021-11-09 09:10 | MHC.RECOVRN ---
Met with pt in ED18 after pt expressed interest in ATS. Pt reports drinking heavily (beer) since , unknown amount. Pt has been to ATS in the past, [facility] x 1. Pt states I need help, I need to stop drinking. [facility] availability, pts referral faxed, pt completed intake. After intake, [facility] called and informed t/w that pt stated many things that raised concern. Pt reported abdominal pain, vomiting blood since last night, no BM in 3 days, hearing voices and seeing things that are not there, wishing he was and has several ways in which he would kill himself. [facility] requesting crisis evaluation. Provider and CARE Team made aware.
--- NOTE | 2021-11-09 10:15 | PC.NURSE ---
pt is now stating that he is +si.
[2021-11-09 10:21] VITALS: BP 122/79; PULSE 99; RESP 18; TEMP 37.2; O2SAT 94
--- NOTE | 2021-11-09 12:28 | MHC.CARE ---
CARE Team consulted to meet with this patient who reported having auditory hallucinations and suicidal ideation during a phone intake with [facility]. He was in room 18 in the main ED, sitting up in bed, alert and oriented, appeared his stated age, wearing casual summer clothes, hygiene and grooming unremarkable. Patient maintained eye contact, was engaged but somewhat guarded, voice soft and clear, he denied changes in sleep or appetite. When asked about the hallucinations he reported earlier this morning, he replied that is due to the alcohol and does not think that he is psychotic. In terms of the concerning suicidal statements patient made this morning, he minimized that and said it was just thoughts and even thought he stated he had several plans he denied any intention of following through. Patient identified his children, grandchildren and girlfriend as primary protective factors said he would not leave them. Girlfriend at bedside, said she does not worry that patient will end his life and appeared to be a strong support for patient.? At this time patient does not need an inpatient psychiatric placement, is taking the medication he was prescribed and said the medication are working as expected but as he continues to drink his mood gets lower. Patient explained that he is going to lose his job and is motivated for treatment, ?I have to do this, I need help and I am ready.? Patient can wait for a detox placement here but prefers to go home and seek an admission on his own. His girlfriend took the day off to help him and said she will be involved with this process. CARE Team will continue to try to reach [facility], patient was given a list of other facilities that accept private insurance and are relatively easy to work with.? Case reviewed with ED providers, Dr. Noland who is in agreement with plan to discharge home, CARE Team will provide follow up call to patient within 24-48hrs Patient has contact information for Crisis services and understand that he may return to the ED to manage withdrawal symptoms.
== END 2021-11-09 11:43 | disposition home or self-care (01) ==
PROVIDERS: Emergency Provider Emergency Medicine
DX: F10.231 Alcohol dependence with withdrawal delirium (principal); Y90.8 Blood alcohol level of 240 mg/100 ml or more; Z71.9 Counseling, unspecified; Z20.822 Contact with and (suspected) exposure to COVID-19; Z79.899 Other long term (current) drug therapy
CPT/HCPCS: 36415; 80048; 80076; 80307; 82077; 85025; 87635; 99284; 99285

== ENCOUNTER 2021-11-10 11:38 | Emergency (ER) | payer OTHER, SELFPAY ==
[2021-11-10] VITALS (8 sets, daily range): BP systolic 120–138; BP diastolic 82–97; PULSE 75–118; RESP 12–20; TEMP 36.6–37; O2SAT 93–99; BMI 31.3
--- NOTE | 2021-11-10 12:32 | ED.ALCOHOL ---
HPI - Alcohol General Chief Complaint: ETOH/Substance Use Stated Complaint: ETOH INTOXICATION PER EMS Time Seen by Provider: 11/10/21 12:28 Source: patient Limitations: no limitations History of Present Illness HPI narrative: Patient comes to the emergency room requesting detox. Patient states that he has been drinking alcohol. Yesterday, patient came with the same complaint, the care team evaluated the patient, found him a place at [facility]. Patient was discharged but he never went there. Patient coming back requesting help with detox. Patient denies any falls, no SI or HI Related Data Home Medications Medication Instructions Recorded Confirmed labetalol 300 mg tablet 1 tab PO BID 09/23/21 10/22/21 metformin 500 mg tablet 1 tab PO BID 09/23/21 10/22/21 Previous Rx's Medication Instructions Recorded omeprazole 40 mg capsule,delayed 40 mg PO DAILY@0630 #30 caps 09/28/21 release trazodone 100 mg tablet 200 mg PO BEDTIME #30 tabs 09/28/21 diclofenac sodium 75 mg 75 mg PO BID PRN pain 30 days #30 10/15/21 tablet,delayed release tabs doxycycline monohydrate 100 mg 100 mg PO BID #28 tabs 10/27/21 tablet naltrexone 50 mg tablet 50 mg PO DAILY #30 tabs 10/27/21 rosuvastatin 10 mg tablet 10 mg PO DAILY #90 tabs 10/28/21 Allergies Allergy/AdvReac Type Severity Reaction Status Date / Time No Known Allergies Allergy Verified 10/22/21 09:08 [No Known Allergies*] Review of Systems Review of Systems: Constitutional : No Weight loss, No Fever, No Chills, No Night Sweats, No Fatigue, No Malaise ENT/Mouth : No Hearing loss, No Ear Pain, No Nasal Congestion, No Sinus Pain, No Hoarseness, No sore throat, No Rhinorrhea, No Swallowing Difficulty Eyes: No Eye Pain, No Swelling, No Redness, No Foreign Body, No Discharge, No Vision Changes Cardiovascular : No Chest Pain, No SOB, No Dyspnea on Exertion, No Orthopnea, No Edema, No Palpitations Respiratory : No Cough, No Sputum, No Wheezing, No Smoke Exposure, No Dyspnea Gastrointestinal : No Nausea, No Vomiting, No Diarrhea, No Constipation, No abdominal Pain, No Hematochezia, No Melena Genitourinary : no irregular bleeding, No Dysuria, No Urinary Frequency, No Hematuria, No Urinary Incontinence, No Urgency, No Flank Pain, No Urinary Flow Changes, No Hesitancy Musculoskeletal : No joint pain, No Myalgias, No Joint Swelling Skin : No Skin Lesions, No rash Neuro : No Weakness, No Numbness, No Paresthesias, No Loss of Consciousness, No Dizziness, No Headache Psych : No Anxiety/Panic, No Depression, No SI/HI/AH/VH, requesting detox for alcohol. Heme/Lymph: No Bruising, No Bleeding,No Lymphadenopathy Endocrine : No Polyuria, No Polydipsia, No Temperature Intolerance [facility] Past Medical History Medical History Abdominal pain Abscess of axilla, right Acute hepatitis Alcohol dependence Alcohol use disorder, moderate, dependence Alcohol withdrawal Anxiety Benign essential hypertension Bipolar depression Cellulitis Diabetes mellitus GERD without esophagitis History of alcoholic hepatitis HTN (hypertension) Mixed hyperlipidemia Obesity (BMI 30-39.9) Other bursal cyst, left ankle and foot Other cyst of bone, left hand Sepsis Surgical History No pertinent past surgical history Family History Family History Father Advanced cirrhosis of liver Alcoholic cirrhosis Substance use disorder Mother Dementia Maternal Grandfather Substance use disorder Sister Substance use disorder Social History Social History Household Members: Significant Other Housing: House Do you presently have visiting nurse or other home services: No Alcohol intake: current Alcohol intake frequency: other Alcohol type: hard liquor Patient Tobacco Use Status: Former Tobacco user Tobacco use type: Cigarette Years Smoked: quit 10 years ago e-Cigarette/Vaping Use: Never Used Second Hand Smoke Exposure: No Use of substances other than those prescribed or required for medical reasons: No Advance Directives: Yes Advance Directives on File: Yes Advance Directives Date on File: 10/23/21 service: No 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 Cognitive needs: No Hearing needs: No Vision needs: No Physical Exam ED Vital Signs: Vital Signs - 24 hr 11/10/21 11:55 Temperature 98.2 F Pulse Rate 75 Respiratory Rate 20 Blood Pressure 133/97 H Pulse Oximetry 94 Oxygen Delivery Method Room Air BMI result Body Mass Index 31.3 Const Other: Appearance: Alert. Oriented X3. No acute distress. Eyes: Dilated pupils bilateral Pupils equal, round and reactive to light. ENT: Pharynx normal. Neck: Normal inspection. Neck supple. No lymph nodes noted. No crepitus CVS: Normal heart rate and rhythm. Pulses normal. Normal S1 and S2 Respiratory: No respiratory distress. Breath sounds normal. No Wheezing. No rales Abdomen: Soft and nontender. No rigidity. No distention. Skin: Skin warm and dry. Normal skin color. Normal skin turgor. Extremities: No lower extremity edema. No Lacerations. No Rash Neuro: Oriented X 3. No motor deficit. No sensory deficit. Moving all extremities. No slurred speech. CN 2 through 12 grossly intact Psych: calm, cooperative, normal affect Course Course Course Narrative: Care team consult pending. Physician observation started at 12:30 Discharge Plan Discharge Clinical Impression: Alcohol abuse Patient Disposition: Still a Patient Prescriptions: No Action rosuvastatin 10 mg tablet 10 mg PO DAILY Qty: 90 1RF doxycycline monohydrate 100 mg tablet 100 mg PO BID Qty: 28 0RF naltrexone 50 mg tablet 50 mg PO DAILY Qty: 30 0RF metformin 500 mg tablet 1 tab PO BID labetalol 300 mg tablet 1 tab PO BID omeprazole 40 mg Capsule,Delayed Release(Dr/Ec) 40 mg PO DAILY@0630 Qty: 30 0RF trazodone 100 mg Tablet 200 mg PO BEDTIME Qty: 30 1RF diclofenac sodium 75 mg tablet,delayed release (DR/EC) 75 mg PO BID PRN (Reason: pain) 30 Days Qty: 30 0RF Rx Instructions: take it with food
[2021-11-10 13:12] LABS: MANUAL DIFF FLAG NO
[2021-11-10 13:14] LABS: Basophils Absolute Auto 0.1 X10*3/uL (0.0-0.2); Basophils Percent Auto 0.7 % (0-2); Eosinophils Absolute Auto 0.2 X10*3/uL (0.0-0.4); Eosinophils Percent Auto 2.6 % (0-4); Hematocrit 39.3 % (42.0-52.0); Hemoglobin 14.2 g/dl (14.0-18.0); Imm Gran Abs Auto 0.03 X10*3/uL (0.00-0.03); Imm Gran Pct Auto 0.4 % (0.0-0.4); Lymphocytes Absolute Auto 3.1 X10*3/uL (1.2-4.9); Lymphocytes Percent Auto 36.8 % (20-40); Mean Corpuscular HGB Conc 36.1 g/dl (31.0-36.0); Mean Corpuscular Hemoglobin 30.9 pg (27.0-33.0); Mean Corpuscular Volume 85.6 fL (80.0-98.0); Mean Platelet Volume 8.6 fL (9.4-12.4); Monocytes Absolute Auto 0.4 X10*3/uL (0.1-1.2); Monocytes Percent Auto 4.3 % (2-11); Neutrophils Absolute Auto 4.7 x10*3/uL (2.0-8.3); Neutrophils Percent Auto 55.2 % (45-73); Platelet Count 265 X10*3/uL (160-400); Red Blood Count 4.59 X10*6/uL (4.60-5.80); Red Cell Distribution Width 12.9 % (11.0-16.0); White Blood Count 8.5 X10*3/uL (4.8-10.8)
--- NOTE | 2021-11-10 13:22 | MHC.RECOVRN ---
Met with pt in ED14 after consult placed to CARE Team for alcohol use and desire for ATS. Pt had presented yesterday with same concern and has been working with [facility] to secure a bed. [facility] has bed availability, however, when staff at spoke with pt this morning, pt informed staff he had SI with a plan to hang himself. requested pt return to ED to be evaluated by Crisis. Pt did endorse same to t/w today, active SI with plan to hang himself. Provider and CARE Team aware.
[2021-11-10 13:44] LABS: Alanine Aminotransferase 29 U/L (0-40); Albumin Level 4.9 g/dL (3.5-5.0); Alkaline Phosphatase 62 U/L (39-117); Anion Gap 18 (12-20); Aspartate Amino Transferase 23 U/L (5-37); Bilirubin Direct 0.2 mg/dL (0.0-0.5); Bilirubin Total 0.4 mg/dL (0.0-1.0); Blood Urea Nitrogen 7 mg/dL (9-16); Calcium 9.5 mg/dL (8.4-10.2); Carbon Dioxide 27 mmol/L (22-29); Chloride 95 mmol/L (96-108); Creatinine Clr Calc Pharmacy 110.6; Estimated Glomerular Filt Rate > 60; Ethanol 416 mg/dL; Glucose Random 134 mg/dL (60-115); Potassium 4.2 mmol/L (3.3-5.1); Sodium 136 mmol/L (135-145); Total Protein 7.8 g/dL (6.5-8.0)
[2021-11-10 14:35] LABS: Amphetamine Screen Urine Not Detected (Not Detect); Barbiturates, Urine Not Detected (Not Detect); Benzodiazepines Screen Urine Not Detected (Not Detect); Cannabinoid Screen Urine Not Detected (Not Detect); Cocaine Screen Urine Not Detected (Not Detect); Fentanyl, urine Not Detected (Not Detect); Opiate Screen Urine Not Detected (Not Detect); Phencyclidine Screen Urine Not Detected (Not Detect)
[2021-11-10] MEDS: LORazepam 1 MG TABLET 2 MG PO ×3 (14:54→22:15)
--- NOTE | 2021-11-10 16:03 | MHC.CARE ---
Pt is intoxicated and will not be clinically appropriate for a crisis evaluation until after 1AM, based on his ethanol level.
--- NOTE | 2021-11-10 17:12 | PC.NURSE ---
Patient reporting anxiety and withdrawals Dr. Salma nolasco.
--- NOTE | 2021-11-10 17:59 | PC.NURSE ---
Verbal order for 650 mg tylenol po for headache
[2021-11-10] MEDS: Acetaminophen 325 MG TABLET 650 MG PO (18:03)
--- NOTE | 2021-11-10 22:02 | PC.NURSE ---
Pt heart rate increased to 140's. Pt is increasingly anxious and diaphoretic.
--- NOTE | 2021-11-10 22:14 | PHA.MEDREC ---
Pharmacy Consult ? Medication Reconciliation Pharmacy has completed the medication reconciliation.
--- NOTE | 2021-11-10 22:44 | PC.NURSE ---
[facility] Smart sheet submitted.
[2021-11-10 23:37] LABS: COVID-19 Test Negative (Negative)
--- NOTE | 2021-11-11 00:30 | MHC.CARE ---
CARE team jesus completed. Recommendation is for detox placement in the morning. This fiction writer faxed referral packet to [facility] [phone] and contacted pt's girlfriend who reported that she can bring him to detox whenever he's ready to go. Pt will remain in the ED overnight and CARE/recovery team will follow up with [facility] admission coordinator in the morning.
[2021-11-11] MEDS: traZODone HCL 100 MG TABLET 200 MG PO (00:46)
[2021-11-11] MEDS: Labetalol HCL 100 MG TABLET 300 MG PO ×2 (00:46→08:43)
[2021-11-11] MEDS: LORazepam 1 MG TABLET 2 MG PO ×4 (02:22→14:25)
[2021-11-11 06:08] VITALS: BP 111/83; PULSE 80; RESP 16; O2SAT 95
--- NOTE | 2021-11-11 07:16 | PC.NURSE ---
patient appears to remain asleep at present respirations are even and unlabored patient appears in no distress
--- NOTE | 2021-11-11 07:31 | PC.NURSE ---
Patient slept through the night, no distress observed/reported, disposition per care team is detox bed search, medication compliant, Ativan administered as ordered for comfort, behavior non concerning, VSS, will continue to monitor.
[2021-11-11] MEDS: metFORMIN HCl 500 MG TABLET PO (08:42)
[2021-11-11] MEDS: Atorvastatin Calcium 40 MG TABLET PO (08:42)
[2021-11-11] MEDS: Naltrexone HCl 50 MG TABLET PO (10:57)
--- NOTE | 2021-11-11 11:06 | MHC.RECOVRN ---
Updated Meds Administered sent to [facility]. Awaiting return call with admission time.
[2021-11-11 11:24] VITALS: BP 126/87; PULSE 76; RESP 18; TEMP 36.8; O2SAT 95
--- NOTE | 2021-11-11 12:14 | MHC.RECOVRN ---
Admission at [facility] scheduled for 4:30PM. RN and CARE Team aware.
== END 2021-11-11 16:24 | disposition home or self-care (01) ==
PROVIDERS: Emergency Provider Emergency Medicine
DX: F10.20 Alcohol dependence, uncomplicated (principal); Y90.8 Blood alcohol level of 240 mg/100 ml or more; Z20.822 Contact with and (suspected) exposure to COVID-19; I10 Essential (primary) hypertension; E11.9 Type 2 diabetes mellitus without complications; E78.2 Mixed hyperlipidemia; Z87.891 Personal history of nicotine dependence; Z79.02 Long term (current) use of antithrombotics/antiplatelets; Z79.84 Long term (current) use of oral hypoglycemic drugs; Z79.899 Other long term (current) drug therapy
CPT/HCPCS: 36415; 80048; 80076; 80307; 82077; 85025; 87635; 99284; 99285

== ENCOUNTER 2021-11-15 11:25 | Inpatient (IN) | payer OTHER, SELFPAY ==
--- NOTE | ~2021-11-15 | XR_ITS ---
EXAMINATION: XR CERVICAL SPINE CLINICAL INFORMATION: Fall COMPARISON: None TECHNIQUE: 3 views of the cervical spine were obtained. FINDINGS: Bone alignment is normal. No fracture or dislocation is seen. There is mild degenerative spondylosis from C2-C3 to C5-C6. Disc spaces are normal. Prevertebral soft tissues are normal. XR/XR cervical spine 3V IMPRESSION: No fracture or dislocation. Mild degenerative changes.
--- NOTE | ~2021-11-15 | XR_ITS ---
EXAMINATION: BILATERAL SHOULDER X-RAY CLINICAL INFORMATION: Pain. History of fall. COMPARISON: Previous right shoulder x-ray from 2013 TECHNIQUE: 4 views of each shoulder FINDINGS: Left: Bone alignment is normal. No fracture or dislocation is seen. The glenohumeral joint is normal. There is arthritis at the acromioclavicular joint. Soft tissues are unremarkable. Right: Bone alignment is normal. No fracture or dislocation is seen. The glenohumeral joint is normal. There is arthritis at the acromioclavicular joint. Soft tissues are unremarkable. XR/XR shoulder LT min 2V IMPRESSION: No fracture or dislocation. 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
--- NOTE | ~2021-11-15 | XR_ITS ---
EXAMINATION: XR LUMBOSACRAL SPINE CLINICAL INFORMATION: Fall COMPARISON: CT of the abdomen and pelvis January 2021 TECHNIQUE: Three views of the lumbosacral spine. FINDINGS: There is mild curvature of the lumbar sacral spine to the right. Bone alignment is otherwise normal. No fracture or dislocation is seen. There is mild degenerative spondylosis at L2-L3 and L3-L4. Disc spaces are normal. There is lower lumbar spine facet arthritis. There is evidence of mild atherosclerotic disease. There is a 1 cm density that projects over the anterior right abdomen. No corresponding abnormality is seen on prior CT scan and this probably represents the patient has ingested, possibly a pill. XR/XR lumbar spine 2-3V IMPRESSION: No fracture or dislocation. Mild degenerative changes.
--- NOTE | ~2021-11-15 | XR_ITS ---
EXAMINATION: BILATERAL SHOULDER X-RAY CLINICAL INFORMATION: Pain. History of fall. COMPARISON: Previous right shoulder x-ray from 2013 TECHNIQUE: 4 views of each shoulder FINDINGS: Left: Bone alignment is normal. No fracture or dislocation is seen. The glenohumeral joint is normal. There is arthritis at the acromioclavicular joint. Soft tissues are unremarkable. Right: Bone alignment is normal. No fracture or dislocation is seen. The glenohumeral joint is normal. There is arthritis at the acromioclavicular joint. Soft tissues are unremarkable. XR/XR shoulder RT min 2V IMPRESSION: No fracture or dislocation. 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
[2021-11-15 11:39] VITALS: BP 120/89; PULSE 67; RESP 18; TEMP 36.6; O2SAT 97; BMI 30.5
[2021-11-15] MEDS: LORazepam 1 MG TABLET 2 MG PO ×3 (12:07→22:21)
--- NOTE | 2021-11-15 12:14 | ED_ITS ---
HPI - General Adult General Chief complaint: Anxiety <CHI Baldwin - Last Filed: 11/15/21 19:58> Stated complaint: anxiety <CHI Baldwin - Last Filed: 11/15/21 19:58> Time Seen by Provider: 11/15/21 11:58 <CHI Baldwin - Last Filed: 11/15/21 19:58> Source: patient <CHI Baldwin - Last Filed: 11/15/21 19:58> Mode of arrival: ambulatory <CHI Baldwin - Last Filed: 11/15/21 19:58> Limitations: no limitations <CHI Baldwin Last Filed: 11/15/21 19:58> History of Present Illness HPI narrative: 56-year-old with pmh of alcohol abuse, HTN, male presents to the ED for anxiety. Patient states feeling anxious the past couple days. Patient states no suicidal homicidal ideation. Patient patient sent from [facility] for possible inpatient psych treatment. Patient was there for detox with think patient anxiety needs psych inpatient treatment. Patient states this feeling anxious. <CHI Baldwin - Last Filed: 11/15/21 19:58> Related Data Home medications: Home Medications Medication Instructions Recorded Confirmed metformin 500 mg tablet 1 tab PO BIDWM 09/23/21 11/15/21 Seroquel 50 mg PO BEDTIME 11/15/21 11/15/21 folic acid 1 mg PO DAILY 11/15/21 11/15/21 hydroxyzine pamoate 25 mg PO Q6-8H PRN Anxiety 11/15/21 11/15/21 magnesium oxide 400 mg PO TID 11/15/21 11/15/21 methocarbamol 750 mg PO Q8-10H PRN Muscle Pain 11/15/21 11/15/21 rosuvastatin 10 mg tablet 1 tab PO DAILY 11/15/21 11/15/21 thiamine HCl (vitamin B1) 100 mg PO DAILY 11/15/21 11/15/21 Previous Rx's Medication Instructions Recorded trazodone 100 mg tablet 200 mg PO BEDTIME #30 tabs 09/28/21 doxycycline monohydrate 100 mg 100 mg PO BID #28 tabs 10/27/21 tablet naltrexone 50 mg tablet 50 mg PO DAILY #30 tabs 10/27/21 <CHI Baldwin Last Filed: 11/15/21 19:58> Allergies/adverse reactions: Allergies Allergy/AdvReac Type Severity Reaction Status Date / Time No Known Allergies Allergy Verified 11/15/21 11:43 [No Known Allergies*] <CHI Baldwin - Last Filed: 11/15/21 19:58> Review of Systems Review of Systems: anxiety. <CHI Baldwin - Last Filed: 11/15/21 19:58> Yes all other systems are reviewed and are negative <CHI Baldwin - Last Filed: 11/15/21 19:58> PMFSH Past Medical History Medical History: Medical History Abdominal pain Abscess of axilla, right Acute hepatitis Alcohol dependence Alcohol use disorder, moderate, dependence Alcohol withdrawal Anxiety Benign essential hypertension Bipolar depression Cellulitis Diabetes mellitus GERD without esophagitis History of alcoholic hepatitis HTN (hypertension) Mixed hyperlipidemia Obesity (BMI 30-39.9) Other bursal cyst, left ankle and foot Other cyst of bone, left hand Sepsis <CHI Baldwin - Last Filed: 11/15/21 19:58> Surgical History: Surgical History No pertinent past surgical history <CHI Baldwin - Last Filed: 11/15/21 19:58> Family History Family History: Family History Father Advanced cirrhosis of liver Alcoholic cirrhosis Substance use disorder Mother Dementia Maternal Grandfather Substance use disorder Sister Substance use disorder <CHI Baldwin - Last Filed: 11/15/21 19:58> Social History Social History: Social History Household Members: Significant Other Housing: House Do you presently have visiting nurse or other home services: No Alcohol intake: current Alcohol intake frequency: 3 or more drinks per day Alcohol type: beer and hard liquor Patient Tobacco Use Status: Former Tobacco user Tobacco use type: Cigarette Years Smoked: quit 10 years ago e-Cigarette/Vaping Use: Never Used Second Hand Smoke Exposure: No Use of substances other than those prescribed or required for medical reasons: No Advance Directives: Yes Advance Directives on File: Yes Advance Directives Date on File: 10/23/21 service: No 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 Cognitive needs: No Hearing needs: No Vision needs: No <CHI Baldwin Last Filed: 11/15/21 19:58> Physical Exam ED Vital Signs: Vital Signs - 24 hr 11/15/21 11:39 11/15/21 14:35 11/16/21 01:15 Temperature 97.9 F 98.7 F 98.5 F Pulse Rate 67 74 77 Respiratory Rate 18 16 16 Blood Pressure 120/89 115/75 135/99 H Pulse Oximetry 97 96 96 Oxygen Delivery Method Room Air Room Air Room Air BMI result Body Mass Index 30.5 <CHI Baldwin Last Filed: 11/15/21 19:58> Vital Signs - 24 hr 11/15/21 11:39 11/15/21 14:35 11/16/21 01:15 Temperature 97.9 F 98.7 F 98.5 F Pulse Rate 67 74 77 Respiratory Rate 18 16 16 Blood Pressure 120/89 115/75 135/99 H Pulse Oximetry 97 96 96 Oxygen Delivery Method Room Air Room Air Room Air BMI result Body Mass Index 30.5 <Srinivasa Han MD - Last Filed: 11/16/21 08:00> Const General: cooperative, healthy appearing, comfortable, no acute distress, well developed, alert, awake and Physically active <CHI Baldwin Last Filed: 11/15/21 19:58> Orientation/consciousness: oriented to time and patient oriented x3 <CHI Baldwin Last Filed: 11/15/21 19:58> HENMT Head: Yes normal to inspection, Yes No palpable skull fracture present, Yes normocephalic, Yes atraumatic and No abrasion <CHI Baldwin Last Filed: 11/15/21 19:58> Eyes General: appearance normal, both eyes and all related structures <CHI Baldwin Last Filed: 11/15/21 19:58> Neck Neck: Yes normal visual inspection, Yes full ROM, Yes no lymphadenopathy, Yes no meningeal signs, Yes trachea midline, Yes supple, No anterior neck swelling and No tender <CHI Baldwin Last Filed: 11/15/21 19:58> Chest Chest palpation & inspection: normal inspection of the chest and normal palpation of entire chest wall <CHI Baldwin Oralia Last Filed: 11/15/21 19:58> Resp Effort & Inspection: normal respiratory effort and able to speak in complete sentences <CHI Baldwin Last Filed: 11/15/21 19:58> Auscultation: clear to auscultation bilaterally <CHI Baldwin Last Filed: 11/15/21 19:58> Cardio Jugular venous distension: no JVD <CHI Baldwin Last Filed: 11/15/21 19:58> Heart sounds: S1 normal heart sound present and S2 normal heart sound present <CHI Baldwin Oralia Last Filed: 11/15/21 19:58> GI Inspection: Yes normal to inspection and No abdominal wall ecchymosis <CHI Balwdin Last Filed: 11/15/21 19:58> Palpation (GI): Soft to palpation, not firm, nontender, no guarding and not rigid <CHI Baldwin Last Filed: 11/15/21 19:58> General: No CVA tenderness and Yes no CVA tenderness <CHI Baldwin Oralia Last Filed: 11/15/21 19:58> Back/Spine/Pelvis Back: no CVA tenderness, No CVA tenderness and No back tenderness <CHI Baldwin Last Filed: 11/15/21 19:58> Skin General skin exam: no rashes or lesions noted and elasticity normal <CHI Baldwin Last Filed: 11/15/21 19:58> Neuro General: oriented to time, patient oriented x3, no meningeal signs and CN's II-XI intact bilaterally <CHI Baldwin Oralia Last Filed: 11/15/21 19:58> Cranial nerves: Yes CN's II-XII intact bilaterally <CHI Baldwin Last Filed: 10/30 19:58> Extrem General: Yes normal to inspection and Yes full ROM <CHI Baldwin Last Filed: 11/15/21 19:58> Psych Other: anxious <CHI Baldwin - Last Filed: 11/15/21 19:58> Appearance: grossly normal and well kempt <CHI Baldwin - Last Filed: 11/15/21 19:58> Course Course Course Narrative: Initial provider states patient was a section 12 and inpatient bed search but there is no Section 12 note and nurse call [facility] counselor and they refused that. Will call again. <CHI Baldwin - Last Filed: 11/15/21 19:58> Reevaluation(s) Reevaluation #1: Spoke with pigment making supervisor Duarte of [facility] and she states patient is a Section 12 and inpatient bed search. Section 12 signed. <CHI Baldwin - Last Filed: 11/15/21 19:58> Time: 13:06 <CHI Baldwin - Last Filed: 11/15/21 19:58> Reevaluation #2: Patient medically cleared. <CHI Baldwin - Last Filed: 11/15/21 19:58> Time: 19:23 <CHI Baldwin - Last Filed: 11/15/21 19:58> Time: 07:58 <Srinivasa Han MD - Last Filed: 11/16/21 08:00> Additional Reevaluation(s): 11/16/2021 8 Am remain stable no event overnight,remain on section 12 bed search increasing anxiety and substance abuse including ETOH <Srinivasa Han MD - Last Filed: 11/16/21 08:00> Medical Decision Making MDM Narrative Medical decision making narrative: Anxiety. Depression <CHI Baldwin - Last Filed: 11/15/21 19:58> Lab Data Result diagrams: : 11/15/21 14:25 11/15/21 13:16 <CHI Baldwin - Last Filed: 11/15/21 19:58> Labs: Lab Results 11/15/21 11/15/21 11/15/21 Range/Units 13:16 13:16 13:51 WBC (4.8-10.8) X10*3/uL RBC (4.60-5.80) X10*6/uL Hgb (14.0-18.0) g/dl Hct (42.0-52.0) % MCV (80.0-98.0) fL MCH (27.0-33.0) pg MCHC (31.0-36.0) g/dl RDW (11.0-16.0) % Plt Count (160-400) X10*3/uL MPV (9.4-12.4) fL Immature Gran % (Auto) (0.0-0.4) % Neut % (Auto) (45-73) % Lymph % (Auto) (20-40) % Lawrence % (Auto) (2-11) % Eos % (Auto) (0-4) % Baso % (Auto) (0-2) % Lymph # (Auto) (1.2-4.9) X10*3/uL Lawrence # (Auto) (0.1-1.2) X10*3/uL Eos # (Auto) (0.0-0.4) X10*3/uL Baso # (Auto) (0.0-0.2) X10*3/uL Abs Immat Gran (auto) (0.00-0.03) X10*3/uL Absolute Neuts (auto) (2.0-8.3) x10*3/uL Absolute Nucleated RBC (0.0-0.012) X10*3/uL Nucleated RBC % (auto) (0.0-0.2) /100WBC Sodium 139 (135-145) mmol/L Potassium 4.1 (3.3-5.1) mmol/L Chloride 104 (96-108) mmol/L Carbon Dioxide 23 (22-29) mmol/L Anion Gap 16 (12-20) BUN 14 D (9-16) mg/dL Creatinine 0.74 (0.5-1.4) mg/dL Estim Creat Clear Calc 121.1 Estimated GFR > 60 Random Glucose 104 (60-115) mg/dL Calcium 9.3 (8.4-10.2) mg/dL Total Bilirubin 0.6 (0.0-1.0) mg/dL AST 33 D (5-37) U/L ALT 36 (0-40) U/L Alkaline Phosphatase 54 (39-117) U/L Total Protein 7.2 (6.5-8.0) g/dL Albumin 4.5 (3.5-5.0) g/dL Urine Color YELLOW Urine Appearance CLEAR Urine pH 6.0 (5.0-8.0) Ur Specific [place] 1.010 (1.005-1.025) Urine Protein NEG (NEG-TRACE) MG/DL Urine Glucose (UA) NEG (NEG) MG/DL Urine Ketones NEG (NEG) MG/DL Urine Blood NEG (NEG) Urine Nitrite NEG (NEG) Ur Leukocyte Esterase NEG (NEG) Urine Opiates Screen (Not Detect) Urine Fentanyl Screen (Not Detect) Ur Barbiturates Screen (Not Detect) Ur Phencyclidine Scrn (Not Detect) Ur Amphetamines Screen (Not Detect) U Benzodiazepines Scrn (Not Detect) Urine Cocaine Screen (Not Detect) U Marijuana (THC) Screen (Not Detect) Ethyl Alcohol < 10 mg/dL COVID-19 (ARCENIO) Negative (Negative) COVID-19 Clin Com See Note 11/15/21 11/15/21 Range/Units 13:51 14:25 WBC 5.6 (4.8-10.8) X10*3/uL RBC 3.98 L (4.60-5.80) X10*6/uL Hgb 12.5 L (14.0-18.0) g/dl Hct 35.3 L (42.0-52.0) % MCV 88.7 (80.0-98.0) fL MCH 31.4 (27.0-33.0) pg MCHC 35.4 (31.0-36.0) g/dl RDW 13.3 (11.0-16.0) % Plt Count 149 L D (160-400) X10*3/uL MPV 9.4 (9.4-12.4) fL Immature Gran % (Auto) 0.4 (0.0-0.4) % Neut % (Auto) 59.3 (45-73) % Lymph % (Auto) 29.7 (20-40) % Lawrence % (Auto) 5.4 (2-11) % Eos % (Auto) 4.8 H (0-4) % Baso % (Auto) 0.4 (0-2) % Lymph # (Auto) 1.7 (1.2-4.9) X10*3/uL Lawrence # (Auto) 0.3 (0.1-1.2) X10*3/uL Eos # (Auto) 0.3 (0.0-0.4) X10*3/uL Baso # (Auto) 0.0 (0.0-0.2) X10*3/uL Abs Immat Gran (auto) 0.02 (0.00-0.03) X10*3/uL Absolute Neuts (auto) 3.3 (2.0-8.3) x10*3/uL Absolute Nucleated RBC 0.000 (0.0-0.012) X10*3/uL Nucleated RBC % (auto) 0.0 (0.0-0.2) /100WBC Sodium (135-145) mmol/L Potassium (3.3-5.1) mmol/L Chloride (96-108) mmol/L Carbon Dioxide (22-29) mmol/L Anion Gap (12-20) BUN (9-16) mg/dL Creatinine (0.5-1.4) mg/dL Estim Creat Clear Calc Estimated GFR Random Glucose (60-115) mg/dL Calcium (8.4-10.2) mg/dL Total Bilirubin (0.0-1.0) mg/dL AST (5-37) U/L ALT (0-40) U/L Alkaline Phosphatase (39-117) U/L Total Protein (6.5-8.0) g/dL Albumin (3.5-5.0) g/dL Urine Color Urine Appearance Urine pH (5.0-8.0) Ur Specific [place] (1.005-1.025) Urine Protein (NEG-TRACE) MG/DL Urine Glucose (UA) (NEG) MG/DL Urine Ketones (NEG) MG/DL Urine Blood (NEG) Urine Nitrite (NEG) Ur Leukocyte Esterase (NEG) Urine Opiates Screen Not Detected (Not Detect) Urine Fentanyl Screen POSITIVE H (Not Detect) Ur Barbiturates Screen POSITIVE H (Not Detect) Ur Phencyclidine Scrn Not Detected (Not Detect) Ur Amphetamines Screen Not Detected (Not Detect) U Benzodiazepines Scrn Not Detected (Not Detect) Urine Cocaine Screen Not Detected (Not Detect) U Marijuana (THC) Screen Not Detected (Not Detect) Ethyl Alcohol mg/dL COVID-19 (ARCENIO) (Negative) COVID-19 Clin Com <CHI Baldwin - Last Filed: 11/15/21 19:58> Lab Results 11/15/21 11/15/21 11/15/21 Range/Units 13:16 13:16 13:51 WBC (4.8-10.8) X10*3/uL RBC (4.60-5.80) X10*6/uL Hgb (14.0-18.0) g/dl Hct (42.0-52.0) % MCV (80.0-98.0) fL MCH (27.0-33.0) pg MCHC (31.0-36.0) g/dl RDW (11.0-16.0) % Plt Count (160-400) X10*3/uL MPV (9.4-12.4) fL Immature Gran % (Auto) (0.0-0.4) % Neut % (Auto) (45-73) % Lymph % (Auto) (20-40) % Lawrence % (Auto) (2-11) % Eos % (Auto) (0-4) % Baso % (Auto) (0-2) % Lymph # (Auto) (1.2-4.9) X10*3/uL Lawrence # (Auto) (0.1-1.2) X10*3/uL Eos # (Auto) (0.0-0.4) X10*3/uL Baso # (Auto) (0.0-0.2) X10*3/uL Abs Immat Gran (auto) (0.00-0.03) X10*3/uL Absolute Neuts (auto) (2.0-8.3) x10*3/uL Absolute Nucleated RBC (0.0-0.012) X10*3/uL Nucleated RBC % (auto) (0.0-0.2) /100WBC Sodium 139 (135-145) mmol/L Potassium 4.1 (3.3-5.1) mmol/L Chloride 104 (96-108) mmol/L Carbon Dioxide 23 (22-29) mmol/L Anion Gap 16 (12-20) BUN 14 D (9-16) mg/dL Creatinine 0.74 (0.5-1.4) mg/dL Estim Creat Clear Calc 121.1 Estimated GFR > 60 Random Glucose 104 (60-115) mg/dL Calcium 9.3 (8.4-10.2) mg/dL Total Bilirubin 0.6 (0.0-1.0) mg/dL AST 33 D (5-37) U/L ALT 36 (0-40) U/L Alkaline Phosphatase 54 (39-117) U/L Total Protein 7.2 (6.5-8.0) g/dL Albumin 4.5 (3.5-5.0) g/dL Urine Color YELLOW Urine Appearance CLEAR Urine pH 6.0 (5.0-8.0) Ur Specific [place] 1.010 (1.005-1.025) Urine Protein NEG (NEG-TRACE) MG/DL Urine Glucose (UA) NEG (NEG) MG/DL Urine Ketones NEG (NEG) MG/DL Urine Blood NEG (NEG) Urine Nitrite NEG (NEG) Ur Leukocyte Esterase NEG (NEG) Urine Opiates Screen (Not Detect) Urine Fentanyl Screen (Not Detect) Ur Barbiturates Screen (Not Detect) Ur Phencyclidine Scrn (Not Detect) Ur Amphetamines Screen (Not Detect) U Benzodiazepines Scrn (Not Detect) Urine Cocaine Screen (Not Detect) U Marijuana (THC) Screen (Not Detect) Ethyl Alcohol < 10 mg/dL COVID-19 (ARCENIO) Negative (Negative) COVID-19 Clin Com See Note 11/15/21 11/15/21 Range/Units 13:51 14:25 WBC 5.6 (4.8-10.8) X10*3/uL RBC 3.98 L (4.60-5.80) X10*6/uL Hgb 12.5 L (14.0-18.0) g/dl Hct 35.3 L (42.0-52.0) % MCV 88.7 (80.0-98.0) fL MCH 31.4 (27.0-33.0) pg MCHC 35.4 (31.0-36.0) g/dl RDW 13.3 (11.0-16.0) % Plt Count 149 L D (160-400) X10*3/uL MPV 9.4 (9.4-12.4) fL Immature Gran % (Auto) 0.4 (0.0-0.4) % Neut % (Auto) 59.3 (45-73) % Lymph % (Auto) 29.7 (20-40) % Lawrence % (Auto) 5.4 (2-11) % Eos % (Auto) 4.8 H (0-4) % Baso % (Auto) 0.4 (0-2) % Lymph # (Auto) 1.7 (1.2-4.9) X10*3/uL Lawrence # (Auto) 0.3 (0.1-1.2) X10*3/uL Eos # (Auto) 0.3 (0.0-0.4) X10*3/uL Baso # (Auto) 0.0 (0.0-0.2) X10*3/uL Abs Immat Gran (auto) 0.02 (0.00-0.03) X10*3/uL Absolute Neuts (auto) 3.3 (2.0-8.3) x10*3/uL Absolute Nucleated RBC 0.000 (0.0-0.012) X10*3/uL Nucleated RBC % (auto) 0.0 (0.0-0.2) /100WBC Sodium (135-145) mmol/L Potassium (3.3-5.1) mmol/L Chloride (96-108) mmol/L Carbon Dioxide (22-29) mmol/L Anion Gap (12-20) BUN (9-16) mg/dL Creatinine (0.5-1.4) mg/dL Estim Creat Clear Calc Estimated GFR Random Glucose (60-115) mg/dL Calcium (8.4-10.2) mg/dL Total Bilirubin (0.0-1.0) mg/dL AST (5-37) U/L ALT (0-40) U/L Alkaline Phosphatase (39-117) U/L Total Protein (6.5-8.0) g/dL Albumin (3.5-5.0) g/dL Urine Color Urine Appearance Urine pH (5.0-8.0) Ur Specific [place] (1.005-1.025) Urine Protein (NEG-TRACE) MG/DL Urine Glucose (UA) (NEG) MG/DL Urine Ketones (NEG) MG/DL Urine Blood (NEG) Urine Nitrite (NEG) Ur Leukocyte Esterase (NEG) Urine Opiates Screen Not Detected (Not Detect) Urine Fentanyl Screen POSITIVE H (Not Detect) Ur Barbiturates Screen POSITIVE H (Not Detect) Ur Phencyclidine Scrn Not Detected (Not Detect) Ur Amphetamines Screen Not Detected (Not Detect) U Benzodiazepines Scrn Not Detected (Not Detect) Urine Cocaine Screen Not Detected (Not Detect) U Marijuana (THC) Screen Not Detected (Not Detect) Ethyl Alcohol mg/dL COVID-19 (ARCENIO) (Negative) COVID-19 Clin Com <Srinivasa Han MD - Last Filed: 11/16/21 08:00> Discharge Plan Discharge Clinical Impression: Anxiety, Depression <CHI Baldwin - Last Filed: 11/15/21 19:58> Patient Disposition: Admitted As Inpatient <CHI Baldwin - Last Filed: 11/15/21 19:58>
--- NOTE | 2021-11-15 12:36 | PC.NURSE ---
PER MITZY JOHANSEN AND SYLVAIN, PT WAS NOT SENT HERE ON A SEC 12, SEC 12 PAPERWORK NOT INCLUDED IN PACKET SENT WITH HIM. PT DENIES SI AT THIS TIME. PT RESTLESS, PACING THROUGHOUT POD, COOPERATIVE, ORIENTED X4.
[2021-11-15 13:43] LABS: COVID-19 Test Negative (Negative)
[2021-11-15 13:51] LABS: Alanine Aminotransferase 36 U/L (0-40); Albumin Level 4.5 g/dL (3.5-5.0); Alkaline Phosphatase 54 U/L (39-117); Anion Gap 16 (12-20); Aspartate Amino Transferase 33 U/L (5-37); Bilirubin Total 0.6 mg/dL (0.0-1.0); Blood Urea Nitrogen 14 mg/dL (9-16); Calcium 9.3 mg/dL (8.4-10.2); Carbon Dioxide 23 mmol/L (22-29); Chloride 104 mmol/L (96-108); Creatinine Clr Calc Pharmacy 121.1; Estimated Glomerular Filt Rate > 60; Ethanol < 10 mg/dL; Glucose Random 104 mg/dL (60-115); Potassium 4.1 mmol/L (3.3-5.1); Sodium 139 mmol/L (135-145); Total Protein 7.2 g/dL (6.5-8.0)
[2021-11-15 14:12] LABS: Appearance Urine CLEAR; Color Urine YELLOW; Glucose Urine UA NEG (NEG); Leukocyte Esterase Urine NEG (NEG); Nitrite Urine NEG (NEG); Urine Blood NEG (NEG); Urine Ketones NEG (NEG); Urine Protein NEG (NEG-TRACE)
[2021-11-15 14:21] LABS: Amphetamine Screen Urine Not Detected (Not Detect); Barbiturates, Urine POSITIVE (Not Detect); Benzodiazepines Screen Urine Not Detected (Not Detect); Cannabinoid Screen Urine Not Detected (Not Detect); Cocaine Screen Urine Not Detected (Not Detect); Fentanyl, urine POSITIVE (Not Detect); Opiate Screen Urine Not Detected (Not Detect); Phencyclidine Screen Urine Not Detected (Not Detect)
[2021-11-15 14:35] VITALS: BP 115/75; PULSE 74; RESP 16; TEMP 37.1; O2SAT 96
[2021-11-15 14:41] LABS: Hemoglobin 12.5 g/dl (14.0-18.0); Imm Gran Abs Auto 0.02 X10*3/uL (0.00-0.03); Imm Gran Pct Auto 0.4 % (0.0-0.4)
[2021-11-15 14:43] LABS: Basophils Percent Auto 0.4 % (0-2); Eosinophils Absolute Auto 0.3 X10*3/uL (0.0-0.4); Eosinophils Percent Auto 4.8 % (0-4); Hematocrit 35.3 % (42.0-52.0); Lymphocytes Absolute Auto 1.7 X10*3/uL (1.2-4.9); Lymphocytes Percent Auto 29.7 % (20-40); Mean Corpuscular HGB Conc 35.4 g/dl (31.0-36.0); Mean Corpuscular Hemoglobin 31.4 pg (27.0-33.0); Mean Corpuscular Volume 88.7 fL (80.0-98.0); Mean Platelet Volume 9.4 fL (9.4-12.4); Monocytes Absolute Auto 0.3 X10*3/uL (0.1-1.2); Monocytes Percent Auto 5.4 % (2-11); Neutrophils Absolute Auto 3.3 x10*3/uL (2.0-8.3); Neutrophils Percent Auto 59.3 % (45-73); Red Blood Count 3.98 X10*6/uL (4.60-5.80); Red Cell Distribution Width 13.3 % (11.0-16.0)
[2021-11-15 14:47] LABS: Platelet Count 149 X10*3/uL (160-400); White Blood Count 5.6 X10*3/uL (4.8-10.8)
--- NOTE | 2021-11-15 15:23 | PHA.MEDREC ---
Pharmacy Consult ? Medication Reconciliation Pharmacy has reviewed the medication reconciliation completed by Olga. Olga reported that see used like from [facility]. Patient still actively taking doxycycline at [facility]. Stacey Currie, SanjayD
[2021-11-15] MEDS: metFORMIN HCl 500 MG TABLET PO (15:27)
[2021-11-15] MEDS: Cyclobenzaprine HCl 10 MG TABLET PO (15:27)
[2021-11-15] MEDS: Magnesium Oxide 400 MG TABLET PO ×2 (15:28→21:11)
[2021-11-15] MEDS: Thiamine HCL 100 MG TABLET PO (15:28)
[2021-11-15] MEDS: hydrOXYzine HCL 25 MG TABLET PO (15:28)
[2021-11-15] MEDS: Folic Acid 1 MG TABLET PO (15:28)
[2021-11-15] MEDS: Naltrexone HCl 50 MG TABLET PO (16:16)
[2021-11-15] MEDS: traZODone HCL 100 MG TABLET 200 MG PO (21:11)
[2021-11-15] MEDS: QUEtiapine Fumarate 50 MG TABLET PO (21:12)
--- NOTE | 2021-11-16 | ECG_ITS ---
Test Reason : MED [employer] Blood Pressure : / mmHG Vent. Rate : 062 BPM Atrial Rate : 062 BPM P-R Int : 196 ms QRS Dur : 094 ms QT Int : 396 ms P-R-T Axes : 037 002 039 degrees QTc Int : 401 ms Normal sinus rhythm Normal ECG When compared with ECG of 22-OCT-2021 18:19, Vent. rate has decreased BY 61 BPM Questionable change in QRS axis T wave inversion no longer evident in Inferior leads Referred By: Srinivasa Han Electronically Signed By:BIANCA SAENZ
[2021-11-16 01:15] VITALS: BP 135/99; PULSE 77; RESP 16; TEMP 36.9; O2SAT 96
--- NOTE | 2021-11-16 05:35 | PC.NURSE ---
Patient slept through the night, no distress observed/reported, medication compliant, behavior non concerning, mood pleasant, disposition per [facility] is section 12 inpatient bed search, VSS, will continue to monitor.
--- NOTE | 2021-11-16 07:32 | PC.NURSE ---
patient appears to remain asleep at present respirations are even and unlabored patient appears in no distress
[2021-11-16] MEDS: Atorvastatin Calcium 40 MG TABLET PO (07:59)
[2021-11-16] MEDS: Thiamine HCL 100 MG TABLET PO (07:59)
[2021-11-16] MEDS: Folic Acid 1 MG TABLET PO (07:59)
[2021-11-16] MEDS: metFORMIN HCl 500 MG TABLET PO ×2 (08:00→17:04)
[2021-11-16] MEDS: Magnesium Oxide 400 MG TABLET PO ×3 (08:00→20:38)
[2021-11-16] MEDS: Naltrexone HCl 50 MG TABLET PO (08:00)
[2021-11-16] MEDS: LORazepam 1 MG TABLET 2 MG PO ×4 (08:04→20:44)
[2021-11-16] MEDS: Cyclobenzaprine HCl 10 MG TABLET PO ×2 (09:53→17:04)
[2021-11-16 17:00] VITALS: BP 128/88; PULSE 87; TEMP 36.6
--- NOTE | 2021-11-16 17:14 | PC.ADMIT ---
Pt is a 56 year old male who came to from [facility] requesting more care. [place] [facility] [place] sent to [facility] for detox from ETOH and now presenting back to for anxiety and increased care. Feels he was not getting enough care and was receiving handfuls of pills all day as management. Pt reports wanting a more therapeutic approach with a main goal of med management and finding the medications and doses that work for him to manage anxiety. Pt reports wanting to feel more normal and wants to be able to live his life more normally. Pt appears anxious and states he is an anxious person, had leg bouncing showing signs of anxiety. Reports he is in a safe relationship and has a strong support system but wants to gain more supports through resources such as AA and people who understand/have gone through what he has. Pt is calm and pleasant with a goal oriented mindset. Pt reports a fall during last binge episode, obtained lacerations to forehead which are scabbed/healing and have no signs of infection, he reports pain of the tailbone and between the shoulder blades and states Flexaril has been helping with the pain. Provider notified of admission and placed orders. Pt has no other medical issues mentioned. Pt is in behavioral control and visible in milieu. Pt denies SI/HI/AH/VH. Pt reports feeling safe on the unit and can seek out staff if needed. Pt is on 15 min safety checks. Pt has clear thoughts. Start treatment plan and monitor for safety.
[2021-11-16] MEDS: QUEtiapine Fumarate 50 MG TABLET PO (20:39)
[2021-11-16] MEDS: traZODone HCL 100 MG TABLET 200 MG PO (20:39)
[2021-11-16] MEDS: Magnesium Hydrox/Alum Hydrox 30 ML ORAL.SUSP PO (20:43)
[2021-11-16] MEDS: Acetaminophen 325 MG TABLET 650 MG PO (20:44)
[2021-11-17 06:00] VITALS: BP 128/88; PULSE 151; RESP 19; TEMP 36.2; O2SAT 95
[2021-11-17 08:52] LABS: Cholesterol 190 mg/dL; HDL Cholesterol 40 mg/dL; LDL Cholesterol Calculated 74 mg/dl; Triglycerides 382 mg/dL
[2021-11-17 08:53] LABS: Estimated Average Glucose 131 mg/dL; Hemoglobin A1C 151.9548 umol/L; Hemoglobin A1c % 6.2 %
[2021-11-17] MEDS: Atorvastatin Calcium 40 MG TABLET PO (09:06)
[2021-11-17] MEDS: metFORMIN HCl 500 MG TABLET PO ×2 (09:06→17:16)
[2021-11-17] MEDS: Folic Acid 1 MG TABLET PO (09:07)
[2021-11-17] MEDS: LORazepam 1 MG TABLET 2 MG PO ×3 (09:07→20:39)
[2021-11-17] MEDS: Naltrexone HCl 50 MG TABLET PO (09:07)
[2021-11-17] MEDS: Magnesium Oxide 400 MG TABLET PO ×3 (09:07→20:39)
[2021-11-17] MEDS: Thiamine HCL 100 MG TABLET PO (09:07)
[2021-11-17] MEDS: Cyclobenzaprine HCl 10 MG TABLET PO ×2 (09:07→20:39)
[2021-11-17 09:13] LABS: Free T4 (Free Thyroxine) 0.92 ng/dL (0.71-1.85); Thyroid Stimulating Hormone 1.11 uIU/mL (0.32-4.0)
[2021-11-17 09:28] LABS: Folate 19.1 ng/mL (> or = 4.0); Vitamin B12 452 pg/mL (200-900)
[2021-11-17] MEDS: Acetaminophen 325 MG TABLET 650 MG PO (13:51)
[2021-11-17] MEDS: FLUoxetine HCl 20 MG CAPSULE PO (13:51)
--- NOTE | 2021-11-17 15:50 | HO.PSYADMNOT ---
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 Reports recent relapse, treated at [facility] then to [facility]. Drinking for 10+ days prior and taking OTC sleep agents. Reports he was given medications at [facility] which [facility] made changes with, specifically stopping Lorazepam and transitioning to Atarax. Reports the transition was OK, but when he was completely taken off Lorazepam, I could not function and I think I went out of my mind, I believe I had a nervous breakdown. I have not felt this normal on a medicine in years-it works for me and I want to keep it. Experienced anxiety, tremor, racing thoughts, poor sleep, poor appetite, poor concentration, SI with a plan to hang himself. Pt is aware of addictive potential and of short term use-asks if we can find something else similiar to help him to feel well. Stressors-learned today that he was terminated from his job due to excess absences which were all accounted for medically. Requests assistance in returning to [facility]. Reports non compliance with meds upon discharge from [facility] (Prozac, Seroquel), but is willing to trial again Past Psychiatric History: Inpatient: more than 10 years, [facility] recently x 2 OP: none suicide attempts: none Past medication trials: sertraline, seroquel, prozac Reports hx of manic behaviors/hypomania Medical Evaluation Reviewed: Yes [facility] Medical History (Updated 11/17/21 @ 20:31 by Ingris Ruffin, SHABBIR) Abdominal pain Abscess of axilla, right Acute hepatitis Alcohol dependence Alcohol use disorder, moderate, dependence Alcohol use disorder, severe, dependence Alcohol withdrawal Anxiety Benign essential hypertension Bipolar depression Cellulitis Diabetes mellitus GERD without esophagitis History of alcoholic hepatitis HTN (hypertension) Mixed hyperlipidemia Obesity (BMI 30-39.9) Other bursal cyst, left ankle and foot Other cyst of bone, left hand Recurrent moderate major depressive disorder with anxiety Sepsis Narrative: Pancreatitis x 2 with intubation per pt report. Surgical History No pertinent past surgical history Family History: father alcohol use, mother hx of Bipolar, Dementia Paternal and Maternal grandparents all with reported mental illness and dementia Social History: Lives with GF of past 9 years. 2 adult children, 34 and 32. Five grandchildren GF is very supportive Hx of incarceration for 2.5 years s/p OUI Unemployed as of today Substance History: alcohol is primary cannabis on occasion intermittent cocaine Reports several detox admits Trauma History: denies Diagnostics Vital Signs (24Hr): Vital Signs - 24 hr 11/16/21 17:00 11/17/21 06:00 Temperature 97.8 F 97.2 F Pulse Rate 87 151 H Respiratory Rate 19 Blood Pressure 128/88 128/88 Pulse Oximetry 95 Oxygen Delivery Method Room Air BMI result Body Mass Index 30.5 Labs Results: 11/15/21 14:25 11/15/21 13:16 Labs: Laboratory Results - last 48 hr 11/17/21 11/17/21 11/17/21 08:13 08:13 08:13 Estimat Average Glucose 131 Hemoglobin A1c % 6.2 Magnesium 2.0 Triglycerides 382 Cholesterol 190 LDL Cholesterol, Calc 74 HDL Cholesterol 40 D Vitamin B12 452 Folate 19.1 TSH 1.11 Free T4 0.92 Meds/Allergies Meds Home Medications Medication Instructions Recorded Confirmed Type metformin 500 mg tablet 1 tab PO BIDWM 09/23/21 11/15/21 History Seroquel 50 mg PO BEDTIME 11/15/21 11/15/21 History folic acid 1 mg PO DAILY 11/15/21 11/15/21 History hydroxyzine pamoate 25 mg PO Q6-8H PRN Anxiety 11/15/21 11/15/21 History magnesium oxide 400 mg PO TID 11/15/21 11/15/21 History methocarbamol 750 mg PO Q8-10H PRN Muscle Pain 11/15/21 11/15/21 History rosuvastatin 10 mg tablet 1 tab PO DAILY 11/15/21 11/15/21 History thiamine HCl (vitamin B1) 100 mg PO DAILY 11/15/21 11/15/21 History Allergies Allergies Allergy/AdvReac Type Severity Reaction Status Date / Time No Known Allergies Allergy Verified 11/15/21 11:43 [No Known Allergies*] Mental Status Exam Mental Status Exam Patient Appearance: Appropriate Patient Orientation: Person, Place, Time and Situation Level of Consciousness: Alert Patient Behavior: Talkative and Good Eye Contact Mood Description: Depressed and Anxious Affect Description: Anxious Patient Cognition Impaired: No Ability to Follow Directions: Good Speech Pattern: Spontaneous Speech Memory Description: Intact Hallucinations: None Delusions: Not Present Thought Process: Rumination Thought Content: positive for Perseveration and positive for Suicidal Ideation Depressive Symptoms: Increased Anxiety, Insomnia, Difficulty Sleeping, Thoughts of /Suicide and Low Self Esteem Abnormal Motor Activity Signs and Symptoms: Restlessness Judgement: Fair Assessment & Plan Assessment & Plan (1) Recurrent moderate major depressive disorder with anxiety: Status: Acute Code(s): F33.1 - Major depressive disorder, recurrent, moderate; F41.9 - Anxiety disorder, unspecified (2) Alcohol use disorder, severe, dependence: Status: Acute Code(s): F10.20 - Alcohol dependence, uncomplicated Plan 56 yo male, with a long history of alcohol use disorder, depression, anxiety, with reports of alessio/hypomania at times. Pt finding much relief of sx with Lorazepam, which was discontinued at [facility]. Reports when Lorazepam was stopped, I think I had a breakdown. Asks if we can treat his anxiety without addictive agents. By history, denies any mood stabilizer trials. Plan: Ferrous Sulfate daily Iron Profile Pt asks for assist in re-application for [employer] [facility] Pt asks for assist in [facility] referral Requests to stop doxycycline as he has taken this agent for recent infection for longer than I was instructed to do so. Restart Prozac, Seroquel Trileptal 450 mg hs XRay-Lumbar spine, Cervical Spine, bilateral shoulders Collateral contact as needed Couples meeting with pt/partner Patient educated on: diagnosis, medication risk/benefits, substance abuse, therapeutic strategies and medical condition Informed Consent: understands Reason for continued inpatient stay Substantial Risk for: harm to self, inability to function, rapid decompensation and med/psych decompensation
[2021-11-17 18:00] VITALS: BP 158/90; PULSE 59; RESP 18; TEMP 36.8
[2021-11-17] MEDS: traZODone HCL 100 MG TABLET 200 MG PO (20:39)
[2021-11-17] MEDS: QUEtiapine Fumarate 100 MG TABLET PO (20:39)
[2021-11-17] MEDS: OXcarbazepine 150 MG TABLET 450 MG PO (22:00)
[2021-11-18 06:00] VITALS: BP 112/82; PULSE 92; RESP 18; TEMP 36.3; O2SAT 94
[2021-11-18] MEDS: Naltrexone HCl 50 MG TABLET PO (08:35)
[2021-11-18] MEDS: Multivitamin TABLET 1 TAB PO (08:35)
[2021-11-18] MEDS: Magnesium Oxide 400 MG TABLET PO ×3 (08:35→21:13)
[2021-11-18] MEDS: metFORMIN HCl 500 MG TABLET PO ×2 (08:35→17:06)
[2021-11-18] MEDS: FLUoxetine HCl 20 MG CAPSULE PO (08:35)
[2021-11-18] MEDS: Atorvastatin Calcium 40 MG TABLET PO (08:35)
[2021-11-18] MEDS: Thiamine HCL 100 MG TABLET PO (08:35)
[2021-11-18] MEDS: Folic Acid 1 MG TABLET PO (08:36)
[2021-11-18] MEDS: Ferrous Sulfate 324 MG TABLET.DR PO (08:36)
[2021-11-18] MEDS: LORazepam 1 MG TABLET 2 MG PO ×4 (08:40→21:12)
[2021-11-18 09:26] LABS: Iron 72 mcg/dL (45-160); Percent Iron Saturation 20 % (15-50); Total Iron Binding Capacity 364 mcg/dL (228-428); Unsaturated Iron Binding 292 ug/dL
[2021-11-18] MEDS: Cyclobenzaprine HCl 10 MG TABLET PO (12:00)
[2021-11-18] MEDS: Acetaminophen 325 MG TABLET 650 MG PO ×2 (13:13→21:11)
[2021-11-18] MEDS: Magnesium Hydrox/Alum Hydrox 30 ML ORAL.SUSP PO ×2 (17:06→21:14)
[2021-11-18 17:25] LABS: Glucose, Whole Blood 136 mg/dL (60-115)
[2021-11-18 18:00] VITALS: BP 135/79; PULSE 113; RESP 18; TEMP 36.1; O2SAT 97
--- NOTE | 2021-11-18 18:08 | P.PNPSI_ITS ---
Subjective Subjective Date of Service: 11/18/21 Reason For Visit: anxiety Subjective Notes: Conditional Voluntary Healthcare Proxy: No Guardianship: No Medical Problems Affecting Mental Status: No Interim History: Reports some improvement, able to sleep. Will plan a couples meeting for 11/19 5 :30pm with partner. Meds are tolerated and without SE. 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) Reports behavioral changes Psychiatric: Reports abnormal sleep pattern, Reports anxiety, Reports behavioral changes, Reports change in appetite, Reports depression, Reports difficulty concentrating, Reports hopelessness, Reports anhedonia and Reports suicidal ideation Mental Status Exam Mental Status Exam Patient Appearance: Appropriate Patient Orientation: Person, Place, Time and Situation Level of Consciousness: Alert Patient Behavior: Talkative and Good Eye Contact Mood Description: Depressed and Anxious Affect Description: Anxious Patient Cognition Impaired: No Ability to Follow Directions: Good Speech Pattern: Spontaneous Speech Memory Description: Intact Hallucinations: None Delusions: Not Present Thought Process: Rumination Thought Content: positive for Perseveration and positive for Suicidal Ideation Depressive Symptoms: Increased Anxiety, Insomnia, Difficulty Sleeping, Thoughts of /Suicide and Low Self Esteem Abnormal Motor Activity Signs and Symptoms: Restlessness Judgement: Fair Diagnostics Vital Signs (24Hr): Vital Signs - 24 hr 11/18/21 06:00 Temperature 97.4 F Pulse Rate 92 Respiratory Rate 18 Blood Pressure 112/82 Pulse Oximetry 94 Oxygen Delivery Method Room Air BMI result Body Mass Index 30.5 Labs Results: 11/15/21 14:25 11/15/21 13:16 Labs: Laboratory Results - last 48 hr 11/17/21 11/17/21 11/17/21 08:13 08:13 08:13 POC Glucose Estimat Average Glucose 131 Hemoglobin A1c % 6.2 Magnesium 2.0 Iron TIBC % Saturation Unsat Iron Binding Triglycerides 382 Cholesterol 190 LDL Cholesterol, Calc 74 HDL Cholesterol 40 D Vitamin B12 452 Folate 19.1 TSH 1.11 Free T4 0.92 11/18/21 11/18/21 07:58 17:12 POC Glucose 136 H Estimat Average Glucose Hemoglobin A1c % Magnesium Iron 72 TIBC 364 % Saturation 20 Unsat Iron Binding 292 Triglycerides Cholesterol LDL Cholesterol, Calc HDL Cholesterol Vitamin B12 Folate TSH Free T4 Imaging Radiology Impressions: ITS Impressions Cervical Spine X-Ray 11/18/21 10:35 IMPRESSION: No fracture or dislocation. Mild degenerative changes. Lumbar Spine X-Ray 11/18/21 10:35 IMPRESSION: No fracture or dislocation. Mild degenerative changes. Shoulder X-Ray 11/18/21 10:35 IMPRESSION: No fracture or dislocation. 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 Shoulder X-Ray 11/18/21 10:35 IMPRESSION: No fracture or dislocation. 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 Medications Medications Current Medications Acetaminophen (Acetaminophen 325 Mg Tablet) 650 mg PO Q6H PRN PRN Reason: Headache/Pain Mild Scale (1-3) Last Admin: 11/18/21 13:13 Dose: 650 mg Al Hydroxide/Mg Hydroxide (Magnesium Hydrox/Alum Hydrox 30 Ml Oral.Susp) 30 ml PO Q6H PRN PRN Reason: Heartburn/Nausea Last Admin: 11/18/21 17:06 Dose: 30 ml Atorvastatin Calcium (Atorvastatin Calcium 40 Mg Tablet) 40 mg PO DAILY [facility] Last Admin: 11/18/21 08:35 Dose: 40 mg Cyclobenzaprine HCl (Cyclobenzaprine Hcl 10 Mg Tablet) 10 mg PO BID PRN PRN Reason: Muscle Pain Last Admin: 11/18/21 12:00 Dose: 10 mg Ferrous Sulfate (Ferrous Sulfate 324 Mg Tablet.Dr) 324 mg PO DAILY [facility] Last Admin: 11/18/21 08:36 Dose: 324 mg Fluoxetine HCl (Fluoxetine Hcl 20 Mg Capsule) 20 mg PO DAILY [facility] Last Admin: 11/18/21 08:35 Dose: 20 mg Folic Acid (Folic Acid 1 Mg Tablet) 1 mg PO DAILY [facility] Last Admin: 11/18/21 08:36 Dose: 1 mg Hydroxyzine HCl (Hydroxyzine Hcl 25 Mg Tablet) 25 mg PO Q6H PRN PRN Reason: Anxiety Last Admin: 11/15/21 15:28 Dose: 25 mg Lorazepam (Lorazepam 1 Mg Tablet) 2 mg PO QID PRN PRN Reason: Anxiety Last Admin: 11/18/21 17:17 Dose: 2 mg Magnesium Hydroxide (Milk Of Magnesia 30 Ml Oral.Susp) 30 ml PO DAILY PRN PRN Reason: Constipation Magnesium Oxide (Magnesium Oxide 400 Mg Tablet) 400 mg PO TID [facility] Last Admin: 11/18/21 15:01 Dose: 400 mg Metformin HCl (Metformin Hcl 500 Mg Tablet) 500 mg PO BIDWM [facility] Last Admin: 11/18/21 17:06 Dose: 500 mg Multivitamins/Vitamin C (Multivitamin Tablet) 1 tab PO DAILY [facility] Last Admin: 11/18/21 08:35 Dose: 1 tab Naltrexone HCl (Naltrexone Hcl 50 Mg Tablet) 50 mg PO DAILY [facility] Last Admin: 11/18/21 08:35 Dose: 50 mg Oxcarbazepine (Oxcarbazepine 150 Mg Tablet) 450 mg PO BEDTIME [facility] Last Admin: 11/17/21 22:00 Dose: 450 mg Quetiapine Fumarate (Quetiapine Fumarate 100 Mg Tablet) 100 mg PO BEDTIME [facility] Last Admin: 11/17/21 20:39 Dose: 100 mg Thiamine HCl (Thiamine Hcl 100 Mg Tablet) 100 mg PO DAILY [facility] Last Admin: 11/18/21 08:35 Dose: 100 mg Trazodone HCl (Trazodone Hcl 100 Mg Tablet) 200 mg PO BEDTIME [facility] Last Admin: 11/17/21 20:39 Dose: 200 mg Allergies Allergies Allergy/AdvReac Type Severity Reaction Status Date / Time No Known Allergies Allergy Verified 11/15/21 11:43 [No Known Allergies*] Assessment & Plan Assessment & Plan (1) Recurrent moderate major depressive disorder with anxiety: Status: Acute Code(s): F33.1 - Major depressive disorder, recurrent, moderate; F41.9 - Anxiety disorder, unspecified (2) Alcohol use disorder, severe, dependence: Status: Acute Code(s): F10.20 - Alcohol dependence, uncomplicated Plan 56 yo male, with a long history of alcohol use disorder, depression, anxiety, w ith reports of alessio/hypomania at times. Pt finding much relief of sx with Lorazepam, which was discontinued at [facility]. Reports when Lorazepam was stopped, I think I had a breakdown. Asks if we can treat his anxiety without addictive agents. By history, denies any mood stabilizer trials. Plan: Ferrous Sulfate daily Iron Profile Pt asks for assist in re-application for [place] Pt asks for assist in [facility] referral Requests to stop doxycycline as he has taken this agent for recent infection for longer than I was instructed to do so. Restart Prozac, Seroquel Trileptal 450 mg hs XRay-Lumbar spine, Cervical Spine, bilateral shoulders Collateral contact as needed Couples meeting with pt/partner 11/18/21- Continue current plan. Couples meeting 11/19/21 5:30pm I spent minutes with the patient and/or on the patient floor today, greater than?50% of which was spent counseling/coordinating care. Patient educated on: medication risk/benefits and therapeutic strategies Informed Consent: understands and further education needed Reason for contiued inpatient stay Substantial Risk for: harm to self and rapid decompensation
[2021-11-18] MEDS: OXcarbazepine 150 MG TABLET 450 MG PO (21:13)
[2021-11-18] MEDS: traZODone HCL 100 MG TABLET 200 MG PO (21:13)
[2021-11-18] MEDS: QUEtiapine Fumarate 100 MG TABLET PO (21:13)
[2021-11-19 06:00] VITALS: BP 121/74; PULSE 63; RESP 16; TEMP 36.4; O2SAT 97
[2021-11-19] MEDS: Naltrexone HCl 50 MG TABLET PO (08:57)
[2021-11-19] MEDS: metFORMIN HCl 500 MG TABLET PO ×2 (08:57→16:47)
[2021-11-19] MEDS: Thiamine HCL 100 MG TABLET PO (08:57)
[2021-11-19] MEDS: Atorvastatin Calcium 40 MG TABLET PO (08:57)
[2021-11-19] MEDS: FLUoxetine HCl 20 MG CAPSULE PO (08:57)
[2021-11-19] MEDS: Ferrous Sulfate 324 MG TABLET.DR PO (08:57)
[2021-11-19] MEDS: Multivitamin TABLET 1 TAB PO (08:57)
[2021-11-19] MEDS: Magnesium Oxide 400 MG TABLET PO ×3 (08:57→20:35)
[2021-11-19] MEDS: Folic Acid 1 MG TABLET PO (08:57)
[2021-11-19] MEDS: Cyclobenzaprine HCl 10 MG TABLET PO ×2 (09:01→16:48)
[2021-11-19] MEDS: LORazepam 1 MG TABLET 2 MG PO ×3 (09:02→20:42)
--- NOTE | 2021-11-19 15:44 | HO.PSYCHPN ---
Subjective Subjective Date of Service: 11/19/21 Reason For Visit: anxiety Subjective Notes: Conditional Voluntary Healthcare Proxy: No Guardianship: No Medical Problems Affecting Mental Status: No Interim History: Tolerating regime. Great anxiety relief with Lorazepam. Couples meeting with pt and ludy. Ludy is very supportive, stating this is the first time she finds pt to be so serious about his treatment and wanting to go to [facility]. Pt has lost his job and needs a few hours to go to work to gather his tools prior to going to [facility]. [facility]y willing to transport and supervise him before TSS admission. Team continues to work on bed availability. Review of radiology reports Arthritis in bilateral shoulders; Mild degenerative changes in cervical and lumbar spine. Medication Compliance: Yes Side effects from medications: No Attending Groups: Intermittent Review of Systems Acute medical concerns: No Medical Review of Systems: unchanged Review of Systems Psychiatric: Reports anxiety Mental Status Exam Mental Status Exam Patient Appearance: Appropriate Patient Orientation: Person, Place, Time and Situation Level of Consciousness: Alert Patient Behavior: Talkative and Good Eye Contact Mood Description: Depressed and Anxious Affect Description: Anxious Patient Cognition Impaired: No Ability to Follow Directions: Good Speech Pattern: Spontaneous Speech Memory Description: Intact Hallucinations: None Delusions: Not Present Thought Process: Rumination Thought Content: positive for Perseveration and positive for Suicidal Ideation Depressive Symptoms: Increased Anxiety, Insomnia, Difficulty Sleeping, Thoughts of /Suicide and Low Self Esteem Abnormal Motor Activity Signs and Symptoms: Restlessness Judgement: Fair Diagnostics Vital Signs (24Hr): Vital Signs - 24 hr 11/18/21 18:00 11/19/21 06:00 Temperature 97 F 97.5 F Pulse Rate 113 H 63 Respiratory Rate 18 16 Blood Pressure 135/79 121/74 Pulse Oximetry 97 97 Oxygen Delivery Method Room Air Room Air BMI result Body Mass Index 30.5 Labs Results: 11/15/21 14:25 11/15/21 13:16 Labs: Laboratory Results - last 48 hr 11/18/21 11/18/21 07:58 17:12 POC Glucose 136 H Iron 72 TIBC 364 % Saturation 20 Unsat Iron Binding 292 Imaging Radiology Impressions: ITS Impressions Cervical Spine X-Ray 11/18/21 10:35 IMPRESSION: No fracture or dislocation. Mild degenerative changes. Lumbar Spine X-Ray 11/18/21 10:35 IMPRESSION: No fracture or dislocation. Mild degenerative changes. Shoulder X-Ray 11/18/21 10:35 IMPRESSION: No fracture or dislocation. 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 Shoulder X-Ray 11/18/21 10:35 IMPRESSION: No fracture or dislocation. 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 Medications Medications Current Medications Acetaminophen (Acetaminophen 325 Mg Tablet) 650 mg PO Q6H PRN PRN Reason: Headache/Pain Mild Scale (1-3) Last Admin: 11/18/21 21:11 Dose: 650 mg Al Hydroxide/Mg Hydroxide (Magnesium Hydrox/Alum Hydrox 30 Ml Oral.Susp) 30 ml PO Q6H PRN PRN Reason: Heartburn/Nausea Last Admin: 11/18/21 21:14 Dose: 30 ml Atorvastatin Calcium (Atorvastatin Calcium 40 Mg Tablet) 40 mg PO DAILY REPLACED BY [facility] Last Admin: 11/19/21 08:57 Dose: 40 mg Cyclobenzaprine HCl (Cyclobenzaprine Hcl 10 Mg Tablet) 10 mg PO BID PRN PRN Reason: Muscle Pain Last Admin: 11/19/21 09:01 Dose: 10 mg Ferrous Sulfate (Ferrous Sulfate 324 Mg Tablet.Dr) 324 mg PO DAILY REPLACED BY [facility] Last Admin: 11/19/21 08:57 Dose: 324 mg Fluoxetine HCl (Fluoxetine Hcl 20 Mg Capsule) 20 mg PO DAILY REPLACED BY [facility] Last Admin: 11/19/21 08:57 Dose: 20 mg Folic Acid (Folic Acid 1 Mg Tablet) 1 mg PO DAILY REPLACED BY [facility] Last Admin: 11/19/21 08:57 Dose: 1 mg Hydroxyzine HCl (Hydroxyzine Hcl 25 Mg Tablet) 25 mg PO Q6H PRN PRN Reason: Anxiety Last Admin: 11/15/21 15:28 Dose: 25 mg Lorazepam (Lorazepam 1 Mg Tablet) 2 mg PO QID PRN PRN Reason: Anxiety Last Admin: 11/19/21 13:40 Dose: 2 mg Magnesium Hydroxide (Milk Of Magnesia 30 Ml Oral.Susp) 30 ml PO DAILY PRN PRN Reason: Constipation Magnesium Oxide (Magnesium Oxide 400 Mg Tablet) 400 mg PO TID REPLACED BY [facility] Last Admin: 11/19/21 14:11 Dose: 400 mg Metformin HCl (Metformin Hcl 500 Mg Tablet) 500 mg PO BIDWM REPLACED BY [facility] Last Admin: 11/19/21 08:57 Dose: 500 mg Multivitamins/Vitamin C (Multivitamin Tablet) 1 tab PO DAILY REPLACED BY [facility] Last Admin: 11/19/21 08:57 Dose: 1 tab Naltrexone HCl (Naltrexone Hcl 50 Mg Tablet) 50 mg PO DAILY [facility] Last Admin: 11/19/21 08:57 Dose: 50 mg Oxcarbazepine (Oxcarbazepine 150 Mg Tablet) 450 mg PO BEDTIME [facility] Last Admin: 11/18/21 21:13 Dose: 450 mg Quetiapine Fumarate (Quetiapine Fumarate 100 Mg Tablet) 100 mg PO BEDTIME [facility] Last Admin: 11/18/21 21:13 Dose: 100 mg Thiamine HCl (Thiamine Hcl 100 Mg Tablet) 100 mg PO DAILY [facility] Last Admin: 11/19/21 08:57 Dose: 100 mg Trazodone HCl (Trazodone Hcl 100 Mg Tablet) 200 mg PO BEDTIME [facility] Last Admin: 11/18/21 21:13 Dose: 200 mg Allergies Allergies Allergy/AdvReac Type Severity Reaction Status Date / Time No Known Allergies Allergy Verified 11/15/21 11:43 [No Known Allergies*] Assessment & Plan Assessment & Plan (1) Recurrent moderate major depressive disorder with anxiety: Status: Acute Code(s): F33.1 - Major depressive disorder, recurrent, moderate; F41.9 - Anxiety disorder, unspecified (2) Alcohol use disorder, severe, dependence: Status: Acute Code(s): F10.20 - Alcohol dependence, uncomplicated Plan 56 yo male, with a long history of alcohol use disorder, depression, anxiety, with reports of alessio/hypomania at times. Pt finding much relief of sx with Lorazepam, which was discontinued at [facility]. Reports when Lorazepam was stopped, I think I had a breakdown. Asks if we can treat his anxiety without addictive agents. By history, denies any mood stabilizer trials. Plan: Ferrous Sulfate daily Iron Profile Pt asks for assist in re-application for [employer] Pt asks for assist in [facility] referral Requests to stop doxycycline as he has taken this agent for recent infection for longer than I was instructed to do so. Restart Prozac, Seroquel Trileptal 450 mg hs XRay-Lumbar spine, Cervical Spine, bilateral shoulders Collateral contact as needed Couples meeting with pt/partner 11/18/21- Continue current plan. Couples meeting 11/19/21 5:30pm 11/19/21- Continue current plan TSS admit when bed is available. I spent minutes with the patient and/or on the patient floor today, greater than?50% of which was spent counseling/coordinating care. Patient educated on: medication risk/benefits and medical condition Informed Consent: understands Reason for contiued inpatient stay Substantial Risk for: inability to function and rapid decompensation
[2021-11-19 20:28] VITALS: BP 138/87; PULSE 113; TEMP 36.3
[2021-11-19] MEDS: OXcarbazepine 150 MG TABLET 450 MG PO (20:35)
[2021-11-19] MEDS: QUEtiapine Fumarate 100 MG TABLET PO (20:35)
[2021-11-19] MEDS: traZODone HCL 100 MG TABLET 200 MG PO (20:35)
[2021-11-19] MEDS: Acetaminophen 325 MG TABLET 650 MG PO (20:41)
[2021-11-20 06:00] VITALS: BP 119/84; PULSE 83; RESP 16; TEMP 36.4; O2SAT 97
[2021-11-20] MEDS: Cyclobenzaprine HCl 10 MG TABLET PO (08:29)
[2021-11-20] MEDS: FLUoxetine HCl 20 MG CAPSULE PO (08:29)
[2021-11-20] MEDS: Atorvastatin Calcium 40 MG TABLET PO (08:29)
[2021-11-20] MEDS: Thiamine HCL 100 MG TABLET PO (08:29)
[2021-11-20] MEDS: Ferrous Sulfate 324 MG TABLET.DR PO (08:29)
[2021-11-20] MEDS: Naltrexone HCl 50 MG TABLET PO (08:29)
[2021-11-20] MEDS: Magnesium Oxide 400 MG TABLET PO ×3 (08:29→19:36)
[2021-11-20] MEDS: LORazepam 1 MG TABLET 2 MG PO (08:29)
[2021-11-20] MEDS: Multivitamin TABLET 1 TAB PO (08:29)
[2021-11-20] MEDS: metFORMIN HCl 500 MG TABLET PO ×2 (08:29→16:25)
[2021-11-20] MEDS: Folic Acid 1 MG TABLET PO (08:29)
[2021-11-20] MEDS: QUEtiapine Fumarate 50 MG TABLET PO ×2 (13:42→16:41)
--- NOTE | 2021-11-20 16:41 | P.PNPSI_ITS ---
Subjective Subjective Date of Service: 11/20/21 Reason For Visit: anxiety Subjective Notes: Conditional Voluntary Healthcare Proxy: No Guardianship: No Medical Problems Affecting Mental Status: No Interim History: [facility] currently closed due to COVID outbreak. Pt will discharge to home on 11/23. Lorazepam changed to Klonopin 1 mg bid; Triletpal increased to 900 mg hs and Seroquel prn added to assist with anxiety mgt. Aftercare appointments are secured. Medication Compliance: Yes Side effects from medications: No Attending Groups: Intermittent Review of Systems Acute medical concerns: No Medical Review of Systems: unchanged Review of Systems Psychiatric: Reports anxiety Mental Status Exam Mental Status Exam Patient Appearance: Appropriate Patient Orientation: Person, Place, Time and Situation Level of Consciousness: Alert Patient Behavior: Talkative and Good Eye Contact Mood Description: Depressed and Anxious Affect Description: Anxious Patient Cognition Impaired: No Ability to Follow Directions: Good Speech Pattern: Spontaneous Speech Memory Description: Intact Hallucinations: None Delusions: Not Present Thought Process: Rumination Thought Content: positive for Perseveration and positive for Suicidal Ideation Depressive Symptoms: Increased Anxiety, Insomnia, Difficulty Sleeping, Thoughts of /Suicide and Low Self Esteem Abnormal Motor Activity Signs and Symptoms: Restlessness Judgement: Fair Diagnostics Vital Signs (24Hr): Vital Signs - 24 hr 11/19/21 20:28 11/20/21 06:00 Temperature 97.4 F 97.6 F Pulse Rate 113 H 83 Respiratory Rate 16 Blood Pressure 138/87 119/84 Pulse Oximetry 97 BMI result Body Mass Index 30.5 Labs Results: 11/15/21 14:25 11/15/21 13:16 Labs: Laboratory Results - last 48 hr 11/18/21 17:12 POC Glucose 136 H Imaging Radiology Impressions: ITS Impressions Cervical Spine X-Ray 11/18/21 10:35 IMPRESSION: No fracture or dislocation. Mild degenerative changes. Lumbar Spine X-Ray 11/18/21 10:35 IMPRESSION: No fracture or dislocation. Mild degenerative changes. Shoulder X-Ray 11/18/21 10:35 IMPRESSION: No fracture or dislocation. 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 Shoulder X-Ray 11/18/21 10:35 IMPRESSION: No fracture or dislocation. 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 Medications Medications Current Medications Acetaminophen (Acetaminophen 325 Mg Tablet) 650 mg PO Q6H PRN PRN Reason: Headache/Pain Mild Scale (1-3) Last Admin: 11/19/21 20:41 Dose: 650 mg Al Hydroxide/Mg Hydroxide (Magnesium Hydrox/Alum Hydrox 30 Ml Oral.Susp) 30 ml PO Q6H PRN PRN Reason: Heartburn/Nausea Last Admin: 11/18/21 21:14 Dose: 30 ml Atorvastatin Calcium (Atorvastatin Calcium 40 Mg Tablet) 40 mg PO DAILY [facility] Last Admin: 11/20/21 08:29 Dose: 40 mg Clonazepam (Clonazepam 1 Mg Tablet) 1 mg PO BID [facility] Ferrous Sulfate (Ferrous Sulfate 324 Mg Tablet.Dr) 324 mg PO DAILY [facility] Last Admin: 11/20/21 08:29 Dose: 324 mg Fluoxetine HCl (Fluoxetine Hcl 20 Mg Capsule) 20 mg PO DAILY [facility] Last Admin: 11/20/21 08:29 Dose: 20 mg Folic Acid (Folic Acid 1 Mg Tablet) 1 mg PO DAILY [facility] Last Admin: 11/20/21 08:29 Dose: 1 mg Hydroxyzine HCl (Hydroxyzine Hcl 25 Mg Tablet) 25 mg PO Q6H PRN PRN Reason: Anxiety Last Admin: 11/15/21 15:28 Dose: 25 mg Magnesium Hydroxide (Milk Of Magnesia 30 Ml Oral.Susp) 30 ml PO DAILY PRN PRN Reason: Constipation Magnesium Oxide (Magnesium Oxide 400 Mg Tablet) 400 mg PO TID [facility] Last Admin: 11/20/21 15:24 Dose: 400 mg Metformin HCl (Metformin Hcl 500 Mg Tablet) 500 mg PO BIDWM [facility] Last Admin: 11/20/21 16:25 Dose: 500 mg Multivitamins/Vitamin C (Multivitamin Tablet) 1 tab PO DAILY [facility] Last Admin: 11/20/21 08:29 Dose: 1 tab Naltrexone HCl (Naltrexone Hcl 50 Mg Tablet) 50 mg PO DAILY [facility] Last Admin: 11/20/21 08:29 Dose: 50 mg Oxcarbazepine (Oxcarbazepine 300 Mg Tablet) 900 mg PO BEDTIME [facility] Quetiapine Fumarate (Quetiapine Fumarate 100 Mg Tablet) 100 mg PO BEDTIME [facility] Last Admin: 11/19/21 20:35 Dose: 100 mg Quetiapine Fumarate (Quetiapine Fumarate 50 Mg Tablet) 50 mg PO BID PRN PRN Reason: anxiety Last Admin: 11/20/21 13:42 Dose: 50 mg Thiamine HCl (Thiamine Hcl 100 Mg Tablet) 100 mg PO DAILY [facility] Last Admin: 11/20/21 08:29 Dose: 100 mg Trazodone HCl (Trazodone Hcl 100 Mg Tablet) 200 mg PO BEDTIME [facility] Last Admin: 11/19/21 20:35 Dose: 200 mg Allergies Allergies Allergy/AdvReac Type Severity Reaction Status Date / Time No Known Allergies Allergy Verified 11/15/21 11:43 [No Known Allergies*] Assessment & Plan Assessment & Plan (1) Recurrent moderate major depressive disorder with anxiety: Status: Acute Code(s): F33.1 - Major depressive disorder, recurrent, moderate; F41.9 - Anxiety disorder, unspecified (2) Alcohol use disorder, severe, dependence: Status: Acute Code(s): F10.20 - Alcohol dependence, uncomplicated Plan 56 yo male, with a long history of alcohol use disorder, depression, anxiety, with reports of alessio/hypomania at times. Pt finding much relief of sx with Lorazepam, which was discontinued at [facility]. Reports when Lorazepam was stopped, I think I had a breakdown. Asks if we can treat his anxiety without addictive agents. By history, denies any mood stabilizer trials. Plan: Ferrous Sulfate daily Iron Profile Pt asks for assist in re-application for [employer] Pt asks for assist in [facility] referral Requests to stop doxycycline as he has taken this agent for recent infection for longer than I was instructed to do so. Restart Prozac, Seroquel Trileptal 450 mg hs XRay-Lumbar spine, Cervical Spine, bilateral shoulders Collateral contact as needed Couples meeting with pt/partner 11/18/21- Continue current plan. 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 Patient educated on: medication risk/benefits Informed Consent: understands and further education needed Reason for contiued inpatient stay Substantial Risk for: inability to function and rapid decompensation
[2021-11-20 18:00] VITALS: BP 122/78; PULSE 89; RESP 16; TEMP 36.6; O2SAT 99
[2021-11-20] MEDS: QUEtiapine Fumarate 100 MG TABLET PO (19:36)
[2021-11-20] MEDS: OXcarbazepine 300 MG TABLET 900 MG PO (19:36)
[2021-11-20] MEDS: clonazePAM 1 MG TABLET PO (19:37)
[2021-11-20] MEDS: traZODone HCL 100 MG TABLET 200 MG PO (19:37)
[2021-11-21 06:32] VITALS: BP 125/77; PULSE 89; RESP 16; TEMP 36.2; O2SAT 98
[2021-11-21] MEDS: QUEtiapine Fumarate 50 MG TABLET PO ×4 (08:15→21:36)
[2021-11-21] MEDS: Multivitamin TABLET 1 TAB PO (08:15)
[2021-11-21] MEDS: Ferrous Sulfate 324 MG TABLET.DR PO (08:15)
[2021-11-21] MEDS: Magnesium Oxide 400 MG TABLET PO ×3 (08:15→19:47)
[2021-11-21] MEDS: clonazePAM 1 MG TABLET PO ×2 (08:15→19:47)
[2021-11-21] MEDS: metFORMIN HCl 500 MG TABLET PO ×2 (08:15→16:04)
[2021-11-21] MEDS: Naltrexone HCl 50 MG TABLET PO (08:15)
[2021-11-21] MEDS: Thiamine HCL 100 MG TABLET PO (08:15)
[2021-11-21] MEDS: Folic Acid 1 MG TABLET PO (08:15)
[2021-11-21] MEDS: FLUoxetine HCl 20 MG CAPSULE PO (08:15)
[2021-11-21] MEDS: Atorvastatin Calcium 40 MG TABLET PO (08:15)
--- NOTE | 2021-11-21 13:39 | HO.PSYCHPN ---
Subjective Subjective Date of Service: 11/21/21 Reason For Visit: anxiety Interim History: Patient reports that he is very anxious and wants to discharge. He says that his depression is a little better than when he came in; his anxiety was getting better but when he switched from Ativan to clonazepam (for detox) he felt his anxiety go up. Patient however agrees to have an increase in p.r.n. Seroquel to help with anxiety. [employer] also agrees to add Ativan dose for today and tomorrow to help mitigate withdrawal symptoms from taper. Denies any SI or HI Patient shared how he has always had anxiety but that it got out of control a few weeks ago, coinciding with being hospitalized for sepsis Mental Status Exam Mental Status Exam Patient Appearance: Appropriate Patient Orientation: Person, Place, Time and Situation Level of Consciousness: Alert Patient Behavior: Appropriate and Good Eye Contact Mood Description: Depressed and Anxious Affect Description: Anxious Patient Cognition Impaired: No Ability to Follow Directions: Good Speech Pattern: Spontaneous Speech Memory Description: Intact Hallucinations: None Delusions: Not Present Thought Process: Rumination Thought Content: positive for Perseveration and positive for Suicidal Ideation (denies) Depressive Symptoms: Increased Anxiety, Insomnia, Difficulty Sleeping, Thoughts of /Suicide and Low Self Esteem Abnormal Motor Activity Signs and Symptoms: Restlessness Judgement: Fair Diagnostics Vital Signs (24Hr): Vital Signs - 24 hr 11/20/21 18:00 11/21/21 06:32 Temperature 97.8 F 97.1 F Pulse Rate 89 89 Respiratory Rate 16 16 Blood Pressure 122/78 125/77 Pulse Oximetry 99 98 Oxygen Delivery Method Room Air BMI result Body Mass Index 30.5 Labs Results: 11/15/21 14:25 11/15/21 13:16 Imaging Radiology Impressions: ITS Impressions Cervical Spine X-Ray 11/18/21 10:35 IMPRESSION: No fracture or dislocation. Mild degenerative changes. Lumbar Spine X-Ray 11/18/21 10:35 IMPRESSION: No fracture or dislocation. Mild degenerative changes. Shoulder X-Ray 11/18/21 10:35 IMPRESSION: No fracture or dislocation. 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 Shoulder X-Ray 11/18/21 10:35 IMPRESSION: No fracture or dislocation. 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 Medications Medications Current Medications Acetaminophen (Acetaminophen 325 Mg Tablet) 650 mg PO Q6H PRN PRN Reason: Headache/Pain Mild Scale (1-3) Last Admin: 11/19/21 20:41 Dose: 650 mg Al Hydroxide/Mg Hydroxide (Magnesium Hydrox/Alum Hydrox 30 Ml Oral.Susp) 30 ml PO Q6H PRN PRN Reason: Heartburn/Nausea Last Admin: 11/18/21 21:14 Dose: 30 ml Atorvastatin Calcium (Atorvastatin Calcium 40 Mg Tablet) 40 mg PO DAILY [facility] Last Admin: 11/21/21 08:15 Dose: 40 mg Clonazepam (Clonazepam 1 Mg Tablet) 1 mg PO BID [facility] Last Admin: 11/21/21 08:15 Dose: 1 mg Ferrous Sulfate (Ferrous Sulfate 324 Mg Tablet.Dr) 324 mg PO DAILY [facility] Last Admin: 11/21/21 08:15 Dose: 324 mg Fluoxetine HCl (Fluoxetine Hcl 20 Mg Capsule) 20 mg PO DAILY [facility] Last Admin: 11/21/21 08:15 Dose: 20 mg Folic Acid (Folic Acid 1 Mg Tablet) 1 mg PO DAILY [facility] Last Admin: 11/21/21 08:15 Dose: 1 mg Hydroxyzine HCl (Hydroxyzine Hcl 25 Mg Tablet) 25 mg PO Q6H PRN PRN Reason: Anxiety Last Admin: 11/15/21 15:28 Dose: 25 mg Lorazepam (Lorazepam 1 Mg Tablet) 1 mg PO ONCE ONE Stop: 11/22/21 13:01 Magnesium Hydroxide (Milk Of Magnesia 30 Ml Oral.Susp) 30 ml PO DAILY PRN PRN Reason: Constipation Magnesium Oxide (Magnesium Oxide 400 Mg Tablet) 400 mg PO TID [facility] Last Admin: 11/21/21 08:15 Dose: 400 mg Metformin HCl (Metformin Hcl 500 Mg Tablet) 500 mg PO BIDWM [facility] Last Admin: 11/21/21 08:15 Dose: 500 mg Multivitamins/Vitamin C (Multivitamin Tablet) 1 tab PO DAILY [facility] Last Admin: 11/21/21 08:15 Dose: 1 tab Naltrexone HCl (Naltrexone Hcl 50 Mg Tablet) 50 mg PO DAILY [facility] Last Admin: 11/21/21 08:15 Dose: 50 mg Oxcarbazepine (Oxcarbazepine 300 Mg Tablet) 900 mg PO BEDTIME [facility] Last Admin: 11/20/21 19:36 Dose: 900 mg Quetiapine Fumarate (Quetiapine Fumarate 100 Mg Tablet) 100 mg PO BEDTIME [facility] Last Admin: 11/20/21 19:36 Dose: 100 mg Quetiapine Fumarate (Quetiapine Fumarate 50 Mg Tablet) 50 mg PO QID PRN PRN Reason: anxiety Thiamine HCl (Thiamine Hcl 100 Mg Tablet) 100 mg PO DAILY [facility] Last Admin: 11/21/21 08:15 Dose: 100 mg Trazodone HCl (Trazodone Hcl 100 Mg Tablet) 200 mg PO BEDTIME [facility] Last Admin: 11/20/21 19:37 Dose: 200 mg Allergies Allergies Allergy/AdvReac Type Severity Reaction Status Date / Time No Known Allergies Allergy Verified 11/15/21 11:43 [No Known Allergies*] Assessment & Plan Assessment & Plan (1) Recurrent moderate major depressive disorder with anxiety: Status: Acute Code(s): F33.1 - Major depressive disorder, recurrent, moderate; F41.9 - Anxiety disorder, unspecified (2) Alcohol use disorder, severe, dependence: Status: Acute Code(s): F10.20 - Alcohol dependence, uncomplicated Plan 56 yo male, with a long history of alcohol use disorder, depression, anxiety, with reports of alessio/hypomania at times. Pt finding much relief of sx with Lorazepam, which was discontinued at [facility]. Reports when Lorazepam was stopped, I think I had a breakdown. Asks if we can treat his anxiety without addictive agents. By history, denies any mood stabilizer trials. Plan: Ferrous Sulfate daily Iron Profile Pt asks for assist in re-application for [employer] Pt asks for assist in [facility] referral Requests to stop doxycycline as he has taken this agent for recent infection for longer than I was instructed to do so. Restart Prozac, Seroquel Trileptal 450 mg hs XRay-Lumbar spine, Cervical Spine, bilateral shoulders Collateral contact as needed Couples meeting with pt/partner 11/18/21- Continue current plan. 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 to q.i.d. Added Ativan 1 mg for 11/21 and 11/22 (up to 11/20 patient on Ativan 2 mg t.i.d.; on 11/20 patient on Ativan 2 mg once and clonazepam 1 mg once) I spent minutes with the patient and/or on the patient floor today, greater than?50% of which was spent counseling/coordinating care. Patient educated on: medication risk/benefits and substance abuse Informed Consent: understands Reason for contiued inpatient stay Substantial Risk for: med/psych decompensation
[2021-11-21] MEDS: LORazepam 1 MG TABLET PO (13:43)
[2021-11-21 18:00] VITALS: BP 119/78; PULSE 92; RESP 16; TEMP 36.6; O2SAT 99
[2021-11-21] MEDS: OXcarbazepine 300 MG TABLET 900 MG PO (19:47)
[2021-11-21] MEDS: QUEtiapine Fumarate 100 MG TABLET PO (19:47)
[2021-11-21] MEDS: traZODone HCL 100 MG TABLET 200 MG PO (19:47)
[2021-11-22] MEDS: hydrOXYzine HCL 25 MG TABLET PO (04:11)
[2021-11-22] MEDS: QUEtiapine Fumarate 50 MG TABLET PO ×3 (04:11→13:36)
[2021-11-22 06:00] VITALS: BP 123/77; PULSE 96; RESP 16; TEMP 36.7; O2SAT 95
[2021-11-22 07:49] LABS: Creatinine Clr Calc Pharmacy 104.2; Estimated Glomerular Filt Rate > 60
[2021-11-22] MEDS: Naltrexone HCl 50 MG TABLET PO (08:09)
[2021-11-22] MEDS: metFORMIN HCl 500 MG TABLET PO ×2 (08:09→16:01)
[2021-11-22] MEDS: Thiamine HCL 100 MG TABLET PO (08:09)
[2021-11-22] MEDS: Multivitamin TABLET 1 TAB PO (08:09)
[2021-11-22] MEDS: Magnesium Oxide 400 MG TABLET PO ×3 (08:09→19:27)
[2021-11-22] MEDS: FLUoxetine HCl 20 MG CAPSULE PO (08:09)
[2021-11-22] MEDS: clonazePAM 1 MG TABLET PO ×2 (08:10→19:28)
[2021-11-22] MEDS: Folic Acid 1 MG TABLET PO (08:10)
[2021-11-22] MEDS: Atorvastatin Calcium 40 MG TABLET PO (08:10)
[2021-11-22] MEDS: Ferrous Sulfate 324 MG TABLET.DR PO (08:10)
--- NOTE | 2021-11-22 13:11 | P.PNPSI_ITS ---
Subjective Subjective Date of Service: 11/22/21 Reason For Visit: anxiety Interim History: Says doing okay I guess. Denies any SI or HI. Says that the extra Seroquel p.r.n. has helped take the edge off his anxiety though does remain. Also appreciates the Ativan each day. No other complaints or requests. Mostly keeps to himself in his room Mental Status Exam Mental Status Exam Patient Appearance: Appropriate Patient Orientation: Person, Place, Time and Situation Level of Consciousness: Alert Patient Behavior: Appropriate and Good Eye Contact Mood Description: Depressed and Anxious Affect Description: Anxious Patient Cognition Impaired: No Ability to Follow Directions: Good Speech Pattern: Spontaneous Speech Memory Description: Intact Hallucinations: None Delusions: Not Present Thought Process: Rumination Thought Content: positive for Perseveration and positive for Suicidal Ideation (denies) Depressive Symptoms: Increased Anxiety, Insomnia, Difficulty Sleeping, Thoughts of /Suicide and Low Self Esteem Abnormal Motor Activity Signs and Symptoms: Restlessness Judgement: Fair Diagnostics Vital Signs (24Hr): Vital Signs - 24 hr 11/21/21 18:00 11/22/21 06:00 Temperature 97.8 F 98.1 F Pulse Rate 92 96 Respiratory Rate 16 16 Blood Pressure 119/78 123/77 Pulse Oximetry 99 95 Oxygen Delivery Method Room Air Room Air BMI result Body Mass Index 30.5 Labs Results: 11/15/21 14:25 11/22/21 06:40 Labs: Laboratory Results - last 48 hr 11/22/21 06:40 Creatinine 0.86 Estim Creat Clear Calc 104.2 Estimated GFR > 60 Imaging Radiology Impressions: ITS Impressions Cervical Spine X-Ray 11/18/21 10:35 IMPRESSION: No fracture or dislocation. Mild degenerative changes. Lumbar Spine X-Ray 11/18/21 10:35 IMPRESSION: No fracture or dislocation. Mild degenerative changes. Shoulder X-Ray 11/18/21 10:35 IMPRESSION: No fracture or dislocation. 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 Shoulder X-Ray 11/18/21 10:35 IMPRESSION: No fracture or dislocation. 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 Medications Medications Current Medications Acetaminophen (Acetaminophen 325 Mg Tablet) 650 mg PO Q6H PRN PRN Reason: Headache/Pain Mild Scale (1-3) Last Admin: 11/19/21 20:41 Dose: 650 mg Al Hydroxide/Mg Hydroxide (Magnesium Hydrox/Alum Hydrox 30 Ml Oral.Susp) 30 ml PO Q6H PRN PRN Reason: Heartburn/Nausea Last Admin: 11/18/21 21:14 Dose: 30 ml Atorvastatin Calcium (Atorvastatin Calcium 40 Mg Tablet) 40 mg PO DAILY [facility] Last Admin: 11/22/21 08:10 Dose: 40 mg Clonazepam (Clonazepam 1 Mg Tablet) 1 mg PO BID [facility] Last Admin: 11/22/21 08:10 Dose: 1 mg Ferrous Sulfate (Ferrous Sulfate 324 Mg Tablet.Dr) 324 mg PO DAILY [facility] Last Admin: 11/22/21 08:10 Dose: 324 mg Fluoxetine HCl (Fluoxetine Hcl 20 Mg Capsule) 20 mg PO DAILY [facility] Last Admin: 11/22/21 08:09 Dose: 20 mg Folic Acid (Folic Acid 1 Mg Tablet) 1 mg PO DAILY [facility] Last Admin: 11/22/21 08:10 Dose: 1 mg Hydroxyzine HCl (Hydroxyzine Hcl 25 Mg Tablet) 25 mg PO Q6H PRN PRN Reason: Anxiety Last Admin: 11/22/21 04:11 Dose: 25 mg Magnesium Hydroxide (Milk Of Magnesia 30 Ml Oral.Susp) 30 ml PO DAILY PRN PRN Reason: Constipation Magnesium Oxide (Magnesium Oxide 400 Mg Tablet) 400 mg PO TID [facility] Last Admin: 11/22/21 08:09 Dose: 400 mg Metformin HCl (Metformin Hcl 500 Mg Tablet) 500 mg PO BIDWM [facility] Last Admin: 11/22/21 08:09 Dose: 500 mg Multivitamins/Vitamin C (Multivitamin Tablet) 1 tab PO DAILY [facility] Last Admin: 11/22/21 08:09 Dose: 1 tab Naltrexone HCl (Naltrexone Hcl 50 Mg Tablet) 50 mg PO DAILY [facility] Last Admin: 11/22/21 08:09 Dose: 50 mg Oxcarbazepine (Oxcarbazepine 300 Mg Tablet) 900 mg PO BEDTIME [facility] Last Admin: 11/21/21 19:47 Dose: 900 mg Quetiapine Fumarate (Quetiapine Fumarate 100 Mg Tablet) 100 mg PO BEDTIME [facility] Last Admin: 11/21/21 19:47 Dose: 100 mg Quetiapine Fumarate (Quetiapine Fumarate 50 Mg Tablet) 50 mg PO QID PRN PRN Reason: anxiety Last Admin: 11/22/21 08:09 Dose: 50 mg Thiamine HCl (Thiamine Hcl 100 Mg Tablet) 100 mg PO DAILY [facility] Last Admin: 11/22/21 08:09 Dose: 100 mg Trazodone HCl (Trazodone Hcl 100 Mg Tablet) 200 mg PO BEDTIME [facility] Last Admin: 11/21/21 19:47 Dose: 200 mg Allergies Allergies Allergy/AdvReac Type Severity Reaction Status Date / Time No Known Allergies Allergy Verified 11/15/21 11:43 [No Known Allergies*] Assessment & Plan Assessment & Plan (1) Recurrent moderate major depressive disorder with anxiety: Status: Acute Code(s): F33.1 - Major depressive disorder, recurrent, moderate; F41.9 - Anxiety disorder, unspecified (2) Alcohol use disorder, severe, dependence: Status: Acute Code(s): F10.20 - Alcohol dependence, uncomplicated Plan 56 yo male, with a long history of alcohol use disorder, depression, anxiety, with reports of alessio/hypomania at times. Pt finding much relief of sx with Lorazepam, which was discontinued at [facility]. Reports when Lorazepam was stopped, I think I had a breakdown. Asks if we can treat his anxiety without addictive agents. By history, denies any mood stabilizer trials. Plan: Ferrous Sulfate daily Iron Profile Pt asks for assist in re-application for [employer] Pt asks for assist in [facility] referral Requests to stop doxycycline as he has taken this agent for recent infection for longer than I was instructed to do so. Restart Prozac, Seroquel Trileptal 450 mg hs XRay-Lumbar spine, Cervical Spine, bilateral shoulders Collateral contact as needed Couples meeting with pt/partner 11/18/21- Continue current plan. Couples meeting 11/19/21 5:30pm 11/20/21- Discontinue Lorazepam Klonopin 1 mg bid-discussed nursing home tapering Increase Trileptal to 900 mg hs Seroquel prn added for daytime anxiety relief 11/21 Increased Seroquel p.r.n. to q.i.d. Added Ativan 1 mg for 11/21 and 11/22 (up to 11/20 patient on Ativan 2 mg t.i.d.; on 11/20 patient on Ativan 2 mg once and clonazepam 1 mg once) 11/22 continue current treatment plan dc ativan after today I spent minutes with the patient and/or on the patient floor today, greater than?50% of which was spent counseling/coordinating care. Patient educated on: diagnosis and medication risk/benefits Informed Consent: understands Reason for contiued inpatient stay Substantial Risk for: stable for discharge
[2021-11-22] MEDS: LORazepam 1 MG TABLET PO (13:36)
[2021-11-22] MEDS: Magnesium Hydrox/Alum Hydrox 30 ML ORAL.SUSP PO ×2 (15:10→22:58)
[2021-11-22 16:48] VITALS: BP 133/78; PULSE 78; RESP 16; TEMP 36.7; O2SAT 99
[2021-11-22] MEDS: traZODone HCL 100 MG TABLET 200 MG PO (19:27)
[2021-11-22] MEDS: QUEtiapine Fumarate 100 MG TABLET PO (19:27)
[2021-11-22] MEDS: OXcarbazepine 300 MG TABLET 900 MG PO (19:28)
[2021-11-23] MEDS: hydrOXYzine HCL 25 MG TABLET PO (03:35)
[2021-11-23] MEDS: QUEtiapine Fumarate 50 MG TABLET PO ×3 (03:35→15:37)
[2021-11-23] MEDS: Atorvastatin Calcium 40 MG TABLET PO (08:12)
[2021-11-23] MEDS: Multivitamin TABLET 1 TAB PO (08:12)
[2021-11-23] MEDS: Folic Acid 1 MG TABLET PO (08:12)
[2021-11-23] MEDS: metFORMIN HCl 500 MG TABLET PO ×2 (08:13→16:46)
[2021-11-23] MEDS: Ferrous Sulfate 324 MG TABLET.DR PO (08:13)
[2021-11-23] MEDS: Naltrexone HCl 50 MG TABLET PO (08:13)
[2021-11-23] MEDS: clonazePAM 1 MG TABLET PO (08:13)
[2021-11-23] MEDS: Thiamine HCL 100 MG TABLET PO (08:13)
[2021-11-23] MEDS: Magnesium Oxide 400 MG TABLET PO ×2 (08:13→15:37)
[2021-11-23] MEDS: FLUoxetine HCl 20 MG CAPSULE PO (08:13)
[2021-11-23 10:00] VITALS: BP 124/72; PULSE 92; RESP 16; TEMP 36.5; O2SAT 99
--- NOTE | 2021-11-23 11:00 | PM.PSYDC ---
DS: Providers Provider Date of Service: 11/23/21 Date of admission: 11/16/21 11:46 Date of discharge: 11/23/21 [facility] Admitting clinician: Ingris Ruffin Attending physician on admission: Hugo Lopez Attending physician on discharge: Hugo Lopez Discharging clinician: Ingris Ruffin DS: Diagnosis Discharge Diagnosis (1) Recurrent moderate major depressive disorder with anxiety: Status: Acute (2) Alcohol use disorder, severe, dependence: Status: Acute DS: Medications Discharge Medications Home Medications: Previous Rx's Medication Instructions Recorded clonazepam 1 mg tablet 1 mg PO BID #14 tabs 11/23/21 ferrous sulfate 324 mg (65 mg 324 mg PO DAILY #30 tabs 11/23/21 iron) tablet,delayed release fluoxetine 20 mg capsule 20 mg PO DAILY #30 caps 11/23/21 folic acid 1 mg PO DAILY #30 tabs 11/23/21 folic acid 1 mg tablet 1 mg PO DAILY #30 tabs 11/23/21 hydroxyzine HCl 25 mg tablet 25 mg PO Q6H PRN Anxiety #120 tabs 11/23/21 magnesium oxide 400 mg PO TID #90 caps 11/23/21 magnesium oxide 400 mg PO TID #90 tabs 11/23/21 metformin 500 mg tablet 1 tab PO BIDWM #60 tabs 11/23/21 multivitamin (Daily-Derek tablet) 1 tab PO DAILY #30 tabs 11/23/21 naltrexone 50 mg tablet 50 mg PO DAILY #30 tabs 11/23/21 oxcarbazepine 300 mg tablet 900 mg PO BEDTIME #90 tabs 11/23/21 quetiapine 100 mg tablet 100 mg PO BEDTIME #30 tabs 11/23/21 quetiapine 50 mg tablet 50 mg PO QID PRN anxiety #60 tabs 11/23/21 rosuvastatin 10 mg tablet 1 tab PO DAILY #30 tabs 11/23/21 thiamine HCl (vitamin B1) 100 mg PO DAILY #30 tabs 11/23/21 thiamine HCl (vitamin B1) 100 mg 100 mg PO DAILY #30 tabs 11/23/21 tablet trazodone 100 mg tablet 200 mg PO BEDTIME #60 tabs 11/23/21 Mental Status Exam Mental Status Exam Patient Appearance: Appropriate Patient Orientation: Person, Place, Time and Situation Level of Consciousness: Alert Patient Behavior: Appropriate and Good Eye Contact Mood Description: Depressed and Anxious Affect Description: Anxious Patient Cognition Impaired: No Ability to Follow Directions: Good Speech Pattern: Spontaneous Speech Memory Description: Intact Hallucinations: None Delusions: Not Present Thought Process: Rumination Thought Content: positive for Perseveration and positive for Suicidal Ideation (denies) Depressive Symptoms: Increased Anxiety, Insomnia, Difficulty Sleeping, Thoughts of /Suicide and Low Self Esteem Abnormal Motor Activity Signs and Symptoms: Restlessness Judgement: Fair Data Data Completed and Pending Completed studies during hospitalization [Text1]: 11/17/21 11/17/21 11/17/21 08:13 08:13 08:13 Creatinine Estim Creat Clear Calc Estimated GFR POC Glucose Estimat Average Glucose 131 Hemoglobin A1c % 6.2 Magnesium 2.0 Iron TIBC % Saturation Unsat Iron Binding Triglycerides 382 Cholesterol 190 LDL Cholesterol, Calc 74 HDL Cholesterol 40 D Vitamin B12 452 Folate 19.1 TSH 1.11 Free T4 0.92 11/18/21 11/18/21 11/22/21 07:58 17:12 06:40 Creatinine 0.86 Estim Creat Clear Calc 104.2 Estimated GFR > 60 POC Glucose 136 H Estimat Average Glucose Hemoglobin A1c % Magnesium Iron 72 TIBC 364 % Saturation 20 Unsat Iron Binding 292 Triglycerides Cholesterol LDL Cholesterol, Calc HDL Cholesterol Vitamin B12 Folate TSH Free T4 Imaging Diagnostic Imaging Impressions Cervical Spine X-Ray 11/18/21 10:35 IMPRESSION: No fracture or dislocation. Mild degenerative changes. Lumbar Spine X-Ray 11/18/21 10:35 IMPRESSION: No fracture or dislocation. Mild degenerative changes. Shoulder X-Ray 11/18/21 10:35 IMPRESSION: No fracture or dislocation. 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 Shoulder X-Ray 11/18/21 10:35 IMPRESSION: No fracture or dislocation. 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 DS: Summary Hospital Course Hospital Course: Admission to adult psychiatry for symptom exacerbation of recurrent major depression, anxiety, and alcohol use disorder. Seroquel, Trileptal, Prozac and Klonopin and Naltrexone were initiated for symptom mgt. Ativan on admission was changed to Klonopin. Pt to follow up with [facility] (beds not available upon discharge) and with [facility]. He will meet with Dr. Bauer for psychopharmacology to discuss ongoing treatment of anxiety with benzodiazepines. Time spent discussing smoking cessation with patient: 3 to 10 minutes Status at Discharge Functional status at discharge: independent ambulation Overall status at discharge: patient is back to baseline Time Spent with Patient Time attestation: Total time spent providing and/or coordinating discharge services:45 Time spent: Greater than 30 minutes Discharge Plan Discharge Patient Disposition: Home, Self-Care Discharge Diagnosis: Recurrent major depression, severe, with anxiety Alcohol Use Disorder, severe, dependence Referrals: ARJUN BOONE, THERAPIST [Other] - 11/30/21 11:00 am (OFFICE APPOINTMENT) GLORIA BAUER, PSYCHIATRY [Other] - 12/23/21 11:00 am (TELEHEALTH) GLORIA BAUER, PSYCHIATRY [Other] - 01/20/22 11:20 am (TELEHEALTH) [facility] ([facility]) [Other] - 1 Week (Call daily to check-in about whether there is a bed available. ) [facility] Clinical Stabilization Services (CSS) [Other] - 1 Week (Call daily to check-in to see if a bed is available. ) Miky Avitia, MARNIE- [Primary Care Provider] - 01/06/22 3:15 pm (IN OFFICE) Discharge Medications: Continued metformin 500 mg tablet 1 tab PO BIDWM Qty: 60 0RF trazodone 100 mg Tablet 200 mg PO BEDTIME Qty: 60 0RF Discontinued doxycycline monohydrate 100 mg tablet 100 mg PO BID Qty: 28 0RF naltrexone 50 mg tablet 50 mg PO DAILY Qty: 30 0RF folic acid 1 MG tablet 1 mg PO DAILY magnesium oxide 400 MG tablet 400 mg PO TID methocarbamol 750 MG tablet 750 mg PO Q8-10H PRN (Reason: Muscle Pain) Seroquel 50 MG tablet 50 mg PO BEDTIME hydroxyzine pamoate 25 MG capsule 25 mg PO Q6-8H PRN (Reason: Anxiety) thiamine HCl (vitamin B1) 100 MG tablet 100 mg PO DAILY rosuvastatin 10 mg tablet 1 tab PO DAILY No Action labetalol 300 mg tablet 1 tab PO BID Discharge Orders: Discharge Order (Routine); Ordered 11/23/21 Ordered By: Ingris Ruffin Diet: Advance to usual diet Activity on Discharge: As tolerated Stand Alone Forms: Patient Portal Discharge page, Community Support Care Plan Goals: Decrease in symptoms of anxiety Sobriety Stabilization of mood Health Concerns: Depression Alcohol Use Disorder Plan of Treatment: Attend follow up appointments Take medications as directed Continue to apply to TSS/CSS programming Crisis Team if needed [phone] Call/Return as needed Assessment: non-suicidal, non-psychotic Patient Instructions: Depression (ED), Anxiety (ED) Discharge Date/Time: 11/23/21 17:35
[2021-11-23] MEDS: Magnesium Hydrox/Alum Hydrox 30 ML ORAL.SUSP PO (15:37)
== END 2021-11-23 17:35 | disposition home or self-care (01) | DRG 885 ==
LOC: HO.ED 19:54 → HO.PM5 11-16 11:56
PROVIDERS: Physician Assistant; Admitting Provider Psychiatry & Neurology Psychiatry; Emergency Provider Emergency Medicine; PCP Nurse Practitioner Family; Visit Provider Clinical Nurse Specialist Psychiatric/Mental Health, Adult
DX: F33.1 Major depressive disorder, recurrent, moderate (principal); R45.851 Suicidal ideations; K21.9 Gastro-esophageal reflux disease without esophagitis; I10 Essential (primary) hypertension; F41.9 Anxiety disorder, unspecified; F10.20 Alcohol dependence, uncomplicated; E11.9 Type 2 diabetes mellitus without complications; Z20.822 Contact with and (suspected) exposure to COVID-19; Z87.891 Personal history of nicotine dependence; Z91.14 Patient's other noncompliance with medication regimen; Z79.84 Long term (current) use of oral hypoglycemic drugs; Z79.899 Other long term (current) drug therapy
CPT/HCPCS: 36415; 72040; 72100; 73030; 80053; 80061; 80307; 81003; 82077; 82565; 82607; 82746; 82947; 83036; 83540; 83735; 84439; 84443; 85025; 87635; 93005; 99285

== ENCOUNTER 2021-12-11 09:14 | Inpatient (IN) | payer OTHER, SELFPAY ==
--- NOTE | ~2021-12-11 | CT_ITS ---
EXAMINATION: CT HEAD WITHOUT CONTRAST CLINICAL INFORMATION: Fall. COMPARISON: Head CT's dating between October 22, 2021 and January 24, 2014. TECHNIQUE: Contiguous axial imaging was performed from the skull base to vertex without intravenous administration of contrast. This CT examination was performed using dose optimization techniques as appropriate, variously including the following: *Automated exposure control *Adjustment of mA and/or kV according to patient size (this includes techniques or standardized protocols for targeted exams where dose is matched to indication/reason for exam; i.e. extremities or head) *Use of iterative reconstruction technique DLP: 757 mGy-cm FINDINGS: No intracranial hemorrhage, large infarction, or mass lesion is seen. No extra-axial collection is appreciated. The ventricles are normal in size and configuration without evidence of hydrocephalus. Suspect atretic right A1 segment. The visualized paranasal sinuses and mastoid air cells are clear. CT/CT head/brain wo IV con IMPRESSION: No acute intracranial finding.
--- NOTE | ~2021-12-11 | US_ITS ---
EXAMINATION: US ABDOMEN COMPLETE CLINICAL INFORMATION: Epigastric pain and increased liver function tests. COMPARISON: Previous CT of the abdomen and pelvis January 2021 and abdominal ultrasound February 2021 TECHNIQUE: Real-time imaging of the abdominal viscera. FINDINGS: PANCREAS: Normal. ABDOMINAL AORTA: The proximal and distal segments are normal in caliber. Midabdominal aorta is not well visualized. INFERIOR VENA CAVA: Visualized portions are normal. LIVER: The liver is enlarged. Liver echotexture is increased suggestive of fatty infiltration. The liver is normal in contour. No focal hepatic lesion. There is no intrahepatic biliary duct dilatation seen. GALLBLADDER: Normal. The gallbladder is physiologically distended without evidence of stones, sludge, polyps, wall thickening or pericholecystic fluid. COMMON BILE DUCT: Normal in caliber measuring 0.2 cm in diameter. RIGHT KIDNEY: There are 2 echogenic foci in the upper pole questionable for stones. Mild fullness of the renal pelvis. no hydronephrosis. No renal calculi or focal parenchymal lesions. The kidney measures 11.3, cm in maximum dimension. LEFT KIDNEY: Normal. No hydronephrosis. No renal calculi or focal parenchymal lesions. The kidney measures 10.5 cm in maximum dimension. SPLEEN: Normal. The spleen measures 11.9 cm in maximum dimension. FREE FLUID: None. US/US abdomen complete IMPRESSION: Enlarged echogenic liver suggestive of fatty infiltration. Question small right renal stones. Limited visualization of the aorta.
[2021-12-11 09:17] VITALS: BP 141/98; PULSE 125; RESP 18; TEMP 36.7; O2SAT 99; BMI 31.3
--- NOTE | 2021-12-11 09:35 | ED_ITS ---
HPI - Alcohol General Chief Complaint: ETOH/Substance Use Stated Complaint: wants to get sober/R eye swollen Time Seen by Provider: 12/11/21 09:32 Source: patient Mode of arrival: ambulatory Limitations: no limitations History of Present Illness HPI narrative: 56 yo male with hx of anxiety, ETOH abuse, alcoholic hepatitis, GERD, HLD, HTN reports he has been drinking and fell two days ago he doesn't remember the fall but has a R black eye. He is here asking for help with detox - his last drink was last night, he started vomiting on arrival here it has slight pink tinge to it. MD complaint: alcohol withdrawal and desires rehab Last drink: Days (ago) (1) Chronic alcohol use: Yes Previous visits for alcohol intoxication: Yes Recent trauma: Yes Associated symptoms: nausea, vomiting, tremors and other (R black eye) Treatments prior to arrival: none Related Data Home Medications Medication Instructions Recorded Confirmed labetalol 300 mg tablet 1 tab PO BID 12/11/21 12/11/21 Previous Rx's Medication Instructions Recorded metformin 500 mg tablet 1 tab PO BIDWM #60 tabs 11/23/21 trazodone 100 mg tablet 200 mg PO BEDTIME #60 tabs 11/23/21 Allergies Allergy/AdvReac Type Severity Reaction Status Date / Time No Known Allergies Allergy Verified 11/15/21 11:43 [No Known Allergies*] Review of Systems Review of Systems: Constitutional : No Weight loss, No Fever, No Chills, pos fatigue ENT/Mouth : No sore throat, No Rhinorrhea Eyes: No Swelling, No Redness Cardiovascular : No Chest Pain, No SOB, NoEdema Respiratory : No Cough, No Sputum, No Wheezing Gastrointestinal : Positive Nausea, Positive Vomiting, no Diarrhea, no abdominal Pain, No Hematochezia, No Melena Genitourinary : No Dysuria, No Urinary Frequency, No Hematuria, No Urgency Musculoskeletal : No joint pain, No Myalgias, No Joint Swelling Skin : No Skin Lesions, No rash Neuro : No Weakness, No Numbness, No Dizziness, No Headache Psych : pos Anxiety/Panic, No Depression Heme/Lymph: No Bruising, No Lymphadenopathy Endocrine : No Polyuria, No Polydipsia All other systems reviewed and are negative. [facility] Past Medical History Attestation statement: The following information was validated with the patient. Medical History (Updated 12/11/21 @ 15:01 by Sayra Arrieta MD) Acute hepatitis Alcohol use disorder, severe, dependence Alcohol withdrawal Anxiety Diabetes mellitus GERD without esophagitis History of alcoholic hepatitis HTN (hypertension) Mixed hyperlipidemia Obesity (BMI 30-39.9) Recurrent moderate major depressive disorder with anxiety Surgical History No pertinent past surgical history Family History Family History Father Advanced cirrhosis of liver Alcoholic cirrhosis Substance use disorder Mother Dementia Maternal Grandfather Substance use disorder Sister Substance use disorder Social History Social History Household Members: Significant Other Housing: Apartment Do you presently have visiting nurse or other home services: No Alcohol intake: current Alcohol intake frequency: 3 or more drinks per day A lcohol type: beer and hard liquor Patient Tobacco Use Status: Former Tobacco user Tobacco use type: Cigarette Years Smoked: quit 10 years ago e-Cigarette/Vaping Use: Never Used Second Hand Smoke Exposure: No Advance Directives: Yes Advance Directives on File: Yes Advance Directives Date on File: 10/23/21 service: No Current occupational 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 Oriented X3. Anxious mild acute distress. Eyes: Pupils equal, round and reactive to light. R periorbital area is ecchymotic with mild swelling EOM intact, small abrasion noted on R zygoma area, no crepitus felt ENT: Pharynx normal. Neck: Normal inspection. Neck supple. CVS: tachycardic heart rate and rhythm. Pulses normal. Respiratory: No respiratory distress. Breath sounds normal. Abdomen: Soft and nontender. Skin: Skin warm and dry. Normal skin color. Normal skin turgor. Extremities: No lower extremity edema. No calf ttp Neuro: Oriented X 3. No motor deficit. No sensory deficit. Course Course Course Narrative: AG from ETOH will repeat BMP after fluids due for his PO labetalol appears more comfortable at this time now c/o being shaky will start on phenobarb and admit MDM - Alcohol MDM Narrative Medical decision making narrative: 56 yo male with hx of anxiety, ETOH abuse, alcoholic hepatitis, GERD, HLD, HTN here with c/o vomiting (some pink tinge) suspect ETOH gastritis, tremors/anxiety - IV versed ordered, IVF, labs, CT head given fall no other injuries reported or seen on exam. Addiction medicine likely to come down and see patient. He wants rehab will try to get him better so he can get to detox. Lab Data Result diagrams: 12/11/21 10:32 12/11/21 12:22 Labs: Lab Results 12/11/21 12/11/21 12/11/21 Range/Units 10:32 10:32 10:32 WBC 8.9 (4.8-10.8) X10*3/uL RBC 5.15 D (4.60-5.80) X10*6/uL Hgb 16.3 D (14.0-18.0) g/dl Hct 44.1 D (42.0-52.0) % MCV 85.6 (80.0-98.0) fL MCH 31.7 (27.0-33.0) pg MCHC 37.0 H (31.0-36.0) g/dl RDW 13.2 (11.0-16.0) % Plt Count 172 (160-400) X10*3/uL MPV 9.2 L (9.4-12.4) fL Immature Gran % (Auto) 0.3 (0.0-0.4) % Neut % (Auto) 64.6 (45-73) % Lymph % (Auto) 28.8 (20-40) % [place] % (Auto) 5.8 (2-11) % Eos % (Auto) 0.2 (0-4) % Baso % (Auto) 0.3 (0-2) % Lymph # (Auto) 2.6 (1.2-4.9) X10*3/uL [place] # (Auto) 0.5 (0.1-1.2) X10*3/uL Eos # (Auto) 0.0 (0.0-0.4) X10*3/uL Baso # (Auto) 0.0 (0.0-0.2) X10*3/uL Abs Immat Gran (auto) 0.03 (0.00-0.03) X10*3/uL Absolute Neuts (auto) 5.7 (2.0-8.3) x10*3/uL Absolute Nucleated RBC 0.000 (0.0-0.012) X10*3/uL Nucleated RBC % (auto) 0.0 (0.0-0.2) /100WBC Sodium 140 (135-145) mmol/L Potassium 3.8 (3.3-5.1) mmol/L Chloride 95 L (96-108) mmol/L Carbon Dioxide 20 L (22-29) mmol/L Anion Gap 29 H (12-20) BUN 13 (9-16) mg/dL Creatinine 0.97 (0.5-1.4) mg/dL Estim Creat Clear Calc 93.5 Estimated GFR > 60 Random Glucose 193 H D (60-115) mg/dL Calcium 8.9 (8.4-10.2) mg/dL Magnesium 2.1 (1.6-2.6) mg/dL Total Bilirubin 1.0 (0.0-1.0) mg/dL Direct Bilirubin 0.3 (0.0-0.5) mg/dL AST 48 H D (5-37) U/L ALT 47 H (0-40) U/L Alkaline Phosphatase 66 D (39-117) U/L Total Protein 8.9 H D (6.5-8.0) g/dL Albumin 5.3 H (3.5-5.0) g/dL Ethyl Alcohol mg/dL COVID-19 ([facility]) Negative (Negative) COVID-19 Clin Com See Note 12/11/21 12/11/21 Range/Units 10:32 12:22 WBC (4.8-10.8) X10*3/uL RBC (4.60-5.80) X10*6/uL Hgb (14.0-18.0) g/dl Hct (42.0-52.0) % MCV (80.0-98.0) fL MCH (27.0-33.0) pg MCHC (31.0-36.0) g/dl RDW (11.0-16.0) % Plt Count (160-400) X10*3/uL MPV (9.4-12.4) fL Immature Gran % (Auto) (0.0-0.4) % Neut % (Auto) (45-73) % Lymph % (Auto) (20-40) % [place] % (Auto) (2-11) % Eos % (Auto) (0-4) % Baso % (Auto) (0-2) % Lymph # (Auto) (1.2-4.9) X10*3/uL [place] # (Auto) (0.1-1.2) X10*3/uL Eos # (Auto) (0.0-0.4) X10*3/uL Baso # (Auto) (0.0-0.2) X10*3/uL Abs Immat Gran (auto) (0.00-0.03) X10*3/uL Absolute Neuts (auto) (2.0-8.3) x10*3/uL Absolute Nucleated RBC (0.0-0.012) X10*3/uL Nucleated RBC % (auto) (0.0-0.2) /100WBC Sodium 141 (135-145) mmol/L Potassium 4.0 (3.3-5.1) mmol/L Chloride 100 (96-108) mmol/L Carbon Dioxide 19 L (22-29) mmol/L Anion Gap 26 H (12-20) BUN 13 (9-16) mg/dL Creatinine 0.84 (0.5-1.4) mg/dL Estim Creat Clear Calc 107.9 Estimated GFR > 60 Random Glucose 163 H (60-115) mg/dL Calcium 8.2 L D (8.4-10.2) mg/dL Magnesium (1.6-2.6) mg/dL Total Bilirubin (0.0-1.0) mg/dL Direct Bilirubin (0.0-0.5) mg/dL AST (5-37) U/L ALT (0-40) U/L Alkaline Phosphatase (39-117) U/L Total Protein (6.5-8.0) g/dL Albumin (3.5-5.0) g/dL Ethyl Alcohol 180 mg/dL COVID-19 ([facility]) (Negative) COVID-19 Clin Com Critical Care Time Critical Care Time Critical Care Time: Yes Total Critical Care Time: 45 Attestation: IVF x 2L, repeat IV versed, phenobarb protocol, admission I attest to this time spent taking care of the patient Discharge Plan Discharge Clinical Impression: Alcohol abuse with withdrawal Acute alcoholic gastritis Qualifiers: Gastritis bleeding: without bleeding Qualified Code(s): K29.20 - Alcoholic gastritis without bleeding Patient Disposition: Admitted As Inpatient
[2021-12-11 10:00] VITALS: BP 142/100; PULSE 112; RESP 20; TEMP 37.6; O2SAT 93
[2021-12-11 10:37] LABS: MANUAL DIFF FLAG NO
[2021-12-11 10:38] LABS: Basophils Percent Auto 0.3 % (0-2); Eosinophils Percent Auto 0.2 % (0-4); Hematocrit 44.1 % (42.0-52.0); Hemoglobin 16.3 g/dl (14.0-18.0); Imm Gran Abs Auto 0.03 X10*3/uL (0.00-0.03); Imm Gran Pct Auto 0.3 % (0.0-0.4); Lymphocytes Absolute Auto 2.6 X10*3/uL (1.2-4.9); Lymphocytes Percent Auto 28.8 % (20-40); Mean Corpuscular Hemoglobin 31.7 pg (27.0-33.0); Mean Corpuscular Volume 85.6 fL (80.0-98.0); Mean Platelet Volume 9.2 fL (9.4-12.4); Monocytes Absolute Auto 0.5 X10*3/uL (0.1-1.2); Monocytes Percent Auto 5.8 % (2-11); Neutrophils Absolute Auto 5.7 x10*3/uL (2.0-8.3); Neutrophils Percent Auto 64.6 % (45-73); Platelet Count 172 X10*3/uL (160-400); Red Blood Count 5.15 X10*6/uL (4.60-5.80); Red Cell Distribution Width 13.2 % (11.0-16.0); White Blood Count 8.9 X10*3/uL (4.8-10.8)
[2021-12-11] MEDS: Famotidine/PF 20 MG/2 ML VIAL IVPUSH ×3 (10:38→20:52)
[2021-12-11] MEDS: Midazolam HCl/PF 2 MG/2 ML VIAL IVPUSH ×2 (10:38→12:34)
[2021-12-11] MEDS: ondansetron HCL 4 MG/2 ML VIAL IVPUSH ×3 (10:38→22:34)
[2021-12-11] MEDS: Magnesium Sulfate/H2O 2 GM/50 ML PIGGYBACK IV (10:39)
[2021-12-11 10:52] LABS: COVID-19 Test Negative (Negative); IDNOW Serial# 9DB6401D
[2021-12-11 11:01] LABS: Ethanol 180 mg/dL
[2021-12-11 11:10] LABS: Alanine Aminotransferase 47 U/L (0-40); Albumin Level 5.3 g/dL (3.5-5.0); Alkaline Phosphatase 66 U/L (39-117); Anion Gap 29 (12-20); Aspartate Amino Transferase 48 U/L (5-37); Bilirubin Direct 0.3 mg/dL (0.0-0.5); Blood Urea Nitrogen 13 mg/dL (9-16); Calcium 8.9 mg/dL (8.4-10.2); Carbon Dioxide 20 mmol/L (22-29); Chloride 95 mmol/L (96-108); Creatinine Clr Calc Pharmacy 93.5; Estimated Glomerular Filt Rate > 60; Glucose Random 193 mg/dL (60-115); Magnesium 2.1 mg/dL (1.6-2.6); Potassium 3.8 mmol/L (3.3-5.1); Sodium 140 mmol/L (135-145); Total Protein 8.9 g/dL (6.5-8.0)
[2021-12-11] MEDS: Lactated Ringers 1,000 ML 999 ML IV ×2 (11:23→12:16)
[2021-12-11] MEDS: LORazepam 1 MG TABLET 2 MG PO (11:25)
--- NOTE | 2021-12-11 11:32 | PC.NURSE ---
Patient is tachy on the manager monitoring, VS are hypertensive. Patient has hematoma on his right eye. Patient has an IV on right anticubital side, LR and Mg is running.
[2021-12-11 12:00] VITALS: BP 160/104; PULSE 87; RESP 20; TEMP 36.8; O2SAT 99
[2021-12-11] MEDS: Labetalol HCL 200 MG TABLET PO (12:34)
--- NOTE | 2021-12-11 12:37 | PC.NURSE ---
pt medicated with 2mg versed for ciwa protocol. pt ciwa is 11, c/o nausea, notable tremors and anxiety, pt also medicated with bp medication
[2021-12-11 12:52] LABS: Anion Gap 26 (12-20); Blood Urea Nitrogen 13 mg/dL (9-16); Calcium 8.2 mg/dL (8.4-10.2); Carbon Dioxide 19 mmol/L (22-29); Chloride 100 mmol/L (96-108); Creatinine Clr Calc Pharmacy 107.9; Estimated Glomerular Filt Rate > 60; Glucose Random 163 mg/dL (60-115); Sodium 141 mmol/L (135-145)
[2021-12-11] MEDS: Thiamine HCL 200 MG in 0.9 % Sodium Chloride 100 ML 204 MG IV (13:18)
--- NOTE | 2021-12-11 13:19 | PC.NURSE ---
pt medicated per order, pt c/o heartburn, secured entrance monitor nsr 80s, pt also stating he cant sit still and is shaking his legs in the bed, provider is aware and has seen patient laying calmly, call ambriz within reach, will continue to monitor
--- NOTE | 2021-12-11 14:30 | PM.IMHP ---
History of Present Illness Date of Service: 12/11/21 Chief Complaint: Nausea/vomiting This is a 56-year-old male with a pertinent history of alcohol use disorder, insomnia, essential hypertension who presents to the emergency department with complaints of nausea/vomiting. Patient states that he drinks about a gallon of wine every day, his last drink was last night. He decided to quit this morning and started having nausea, abdominal pain,multiple episodes of emesis, his last episode of vomiting was blood-tinged. He has associated bilateral hand tremors, sweating, multiple episodes of emesis. No headache, visual disturbances or tactile or auditory hallucinations. Patient also reports that he fell 2 days ago while he was binge drinking, does not remember the details and has a black eye since. patient has not been taking his psych meds which include Trileptal, Seroquel, fluoxetine, Klonopin. States he tried naltrexone but has not been compliant with it. In the emergency department, patient was given IV fluids, benzos and phenobarbital Review of Systems Review of Systems: positive for nausea, vomiting, abdominal pain . All other review of systems are negative except as noted in HPI. [facility] Medical History (Updated 12/11/21 @ 15:07 by Sayra Arrieta MD) Acute hepatitis Alcohol use disorder, severe, dependence Alcohol withdrawal Anxiety Diabetes mellitus GERD without esophagitis History of alcoholic hepatitis HTN (hypertension) Mixed hyperlipidemia Obesity (BMI 30-39.9) Recurrent moderate major depressive disorder with anxiety Family History Father Advanced cirrhosis of liver Alcoholic cirrhosis Substance use disorder Mother Dementia Maternal Grandfather Substance use disorder Sister Substance use disorder Surgical History No pertinent past surgical history Social History Household Members: Significant Other Housing: Apartment Do you presently have visiting nurse or other home services: No Alcohol intake: current Alcohol intake frequency: 3 or more drinks per day Alcohol type: beer and hard liquor Patient Tobacco Use Status: Former Tobacco user Tobacco use type: Cigarette Years Smoked: quit 10 years ago e-Cigarette/Vaping Use: Never Used Second Hand Smoke Exposure: No Advance Directives: Yes Advance Directives on File: Yes Advance Directives Date on File: 10/23/21 service: No Current occupational 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 Meds Allergies Allergy/AdvReac Type Severity Reaction Status Date / Time No Known Allergies Allergy Verified 11/15/21 11:43 [No Known Allergies*] Active Medications: Current Medications Acetaminophen (Acetaminophen 325 Mg Tablet) 650 mg PO Q6H PRN PRN Reason: Pain, Mild (Pain Scale 1-3) Enoxaparin Sodium (Enoxaparin Sodium 40 Mg/0.4 Ml Syringe) 40 mg SUBCUT Q24H MAILE Famotidine (Famotidine/Pf 20 Mg/2 Ml Vial) 20 mg IVPUSH BID MAILE Hydroxyzine HCl (Hydroxyzine Hcl 25 Mg Tablet) 25 mg PO Q6H PRN PRN Reason: Anxiety Sodium Chloride (Ns) 1,000 mls @ 100 mls/hr IVCONT .Q10H MAILE Stop: 12/12/21 00:29 Melatonin (Melatonin 3 Mg Tablet) 6 mg PO BEDTIME PRN PRN Reason: Insomnia Non-Formulary Medication (Labetalol) 1 tab PO BID MAILE Ondansetron HCl (Ondansetron Hcl 4 Mg/2 Ml Vial) 4 mg IVPUSH Q8H PRN PRN Reason: Nausea and Vomiting Pharmacy Consult (Consult Rx Etoh Phenob Im/Po) 1 each MISCELLANE ONCE PRN; Protocol PRN Reason: Consult order Pharmacy Consult (Consult Rx Perform Med Rec) 1 each MISCELLANE ONCE PRN PRN Reason: Consult order Phenobarbital (Phenobarbital 15 Mg Tablet) 45 mg PO BID REPLACED BY [facility]; Protocol Stop: 12/13/21 21:01 Phenobarbital (Phenobarbital 30 Mg Tablet) 30 mg PO BID REPLACED BY [facility]; Protocol Stop: 12/15/21 21:01 Phenobarbital (Phenobarbital 30 Mg Tablet) 30 mg PO DAILY REPLACED BY [facility]; Protocol Stop: 12/17/21 09:01 Phenobarbital Sodium (Phenobarbital Sodium 130 Mg/Ml Vial Im Q3hx2) 240 mg IM Q3H MAILE; Protocol Stop: 12/11/21 20:01 Sodium Chloride (0.9 % Sodium Chloride Flush 3 Ml Syringe) 3 ml IVFLUSH QSHIFT MAILE Thiamine HCl (Thiamine Hcl 100 Mg Tablet) 100 mg PO DAILY REPLACED BY [facility] Trazodone HCl (Trazodone Hcl 100 Mg Tablet) 200 mg PO BEDTIME REPLACED BY [facility] Home Medications Medication Instructions Recorded Confirmed Last Taken Type labetalol 300 mg tablet 1 tab PO BID 12/11/21 12/11/21 Unknown History Physical Exam Vital Signs and Narrative: Vital Signs: Last Vital Signs Temp 98.3 F 12/11/21 12:00 Pulse 87 12/11/21 12:00 Resp 20 12/11/21 12:00 BP 160/104 H 12/11/21 12:00 Pulse Ox 99 12/11/21 12:00 O2 Del Method 12/11/21 12:00 BMI result Body Mass Index 31.3 Middle aged male lying in ER bed, anxious appearing right eye ecchymosis seen, neck supple bilateral equal breath sounds with no wheezing or crackles pulse is regular, S1-S2 heard, no murmurs appreciated no significant upper abdominal tenderness, no guarding, no rigidity, no CVA tenderness no pedal edema patient is awake, alert, oriented to self, person, place and time, no focal motor weakness psych: Mood : anxious Results Labs CBC and Chem 7: 12/11/21 10:32 12/11/21 12:22 Labs: Laboratory Results - last 24 hr 12/11/21 12/11/21 12/11/21 10:32 10:32 10:32 MCV 85.6 MCH 31.7 MCHC 37.0 H RDW 13.2 Plt Count 172 MPV 9.2 L Immature Gran % (Auto) 0.3 Neut % (Auto) 64.6 Lymph % (Auto) 28.8 [place] % (Auto) 5.8 Eos % (Auto) 0.2 Baso % (Auto) 0.3 Lymph # (Auto) 2.6 [place] # (Auto) 0.5 Eos # (Auto) 0.0 Baso # (Auto) 0.0 Abs Immat Gran (auto) 0.03 Absolute Neuts (auto) 5.7 Absolute Nucleated RBC 0.000 Nucleated RBC % (auto) 0.0 Anion Gap 29 H Estim Creat Clear Calc 93.5 Estimated GFR > 60 Random Glucose 193 H D Calcium 8.9 Magnesium 2.1 Total Bilirubin 1.0 Direct Bilirubin 0.3 AST 48 H D ALT 47 H Alkaline Phosphatase 66 D Total Protein 8.9 H D Albumin 5.3 H Ethyl Alcohol COVID-19 ([facility]) Negative COVID-19 Clin Com See Note 12/11/21 12/11/21 10:32 12:22 MCV MCH MCHC RDW Plt Count MPV Immature Gran % (Auto) Neut % (Auto) Lymph % (Auto) [place] % (Auto) Eos % (Auto) Baso % (Auto) Lymph # (Auto) [place] # (Auto) Eos # (Auto) Baso # (Auto) Abs Immat Gran (auto) Absolute Neuts (auto) Absolute Nucleated RBC Nucleated RBC % (auto) Anion Gap 26 H Estim Creat Clear Calc 107.9 Estimated GFR > 60 Random Glucose 163 H Calcium 8.2 L D Magnesium Total Bilirubin Direct Bilirubin AST ALT Alkaline Phosphatase Total Protein Albumin Ethyl Alcohol 180 COVID-19 ([facility]) COVID-19 Clin Com Imaging Radiologist's Impressions: Impressions Head CT 12/11/21 11:09 IMPRESSION: No acute intracranial finding. Assessment and Plan (1) Alcohol withdrawal: Status: Acute CIWA : 16, Received benzos in the ER, currently on phenobarbital. Symptomatic management with IV Zofran p.r.n. (2) Alcohol use disorder, severe, dependence: Status: Acute noncompliant with naltrexone. Consulted case management team for resources regarding detox and rehab facility. initiating thiamine 100 mg IV daily x5 (3) Acute alcoholic gastritis: Qualifiers: Gastritis bleeding: without bleeding Qualified Code(s): K29.20 - Alcoholic gastritis without bleeding Status: Acute Initiating IV Pepcid 20 mg b.i.d. (4) Alcoholic ketoacidosis: Status: Acute (5) Benign essential hypertension: Status: Acute continue home labetalol (6) Anxiety with depression: Status: Acute noncompliant with Klonopin, fluoxetine, Seroquel, Trileptal. Recommend outpatient psychiatry evaluation (7) Insomnia: Status: Acute continue home trazodone (8) Diabetes mellitus: Status: Acute Holding metformin Quality Stroke Does the patient have a stroke diagnosis?: No VTE Prior VTE?: No VTE Risk Level:: Medical - moderate - high VTE Device Contraindication: Treatment Not Indicated VTE Drug Contraindication: N/A - Med Ordered
--- NOTE | 2021-12-11 14:32 | PHA.MEDREC ---
Pharmacy Consult ? Medication Reconciliation Pharmacy has completed the medication reconciliation. Patient reports only taking Labetolol, Metformin, and Trazodone. Reports he had a lot of other medication on discharge from the psych unit but stopped taking the medications when he started drinking a few weeks ago. The following medications are the ones he was discharged with: Clonazaepam 1 mg BID Fluoxetine 20 mg daily Naltrexone 50 mg daily Oxcarbezapine 900 mg bedtime Quetiapine 100 mg bedtime Quetiapine 50 mg QID PRN anxiety rosuvastatin 10 mg bedtime Hydroxyzine 25 mg Q ferrous sulfate, thiamine and multivitamin Dr. Arrieta was present duing interview. Wanted only the medications patient actively taking in home med list. Stacey Currie, PharmD
[2021-12-11 14:40] VITALS: BP 135/91; PULSE 99; RESP 16; O2SAT 95
[2021-12-11] MEDS: PHENobarbitaL sodium 130 MG/ML IM ONCE 320 MG IM (14:47)
[2021-12-11] MEDS: Enoxaparin Sodium 40 MG/0.4 ML SYRINGE SUBCUT (14:48)
[2021-12-11] MEDS: Magnesium Hydrox/Alum Hydrox 30 ML ORAL.SUSP 15 ML PO (14:48)
[2021-12-11] MEDS: 0.9 % Sodium Chloride 1,000 ML 100 ML IVCONT (15:15)
--- NOTE | 2021-12-11 15:17 | PC.NURSE ---
patient alert to person/place not time, ekg monitor sinus tach, vss, ivf hung per order, pt medicated per order, call ambriz within reach, will continue to monitor
[2021-12-11] MEDS: PHENobarbitaL sodium 130 MG/ML VIAL IM Q3Hx2 240 MG IM ×2 (17:20→20:13)
--- NOTE | 2021-12-11 17:22 | PC.NURSE ---
patient awake/alert, pt medicated with phenobarb per order, ivf continue to run per order, surveillance system monitor nsr 90s, vss, call ambriz within reach, will continue to monitor
[2021-12-11 17:24] VITALS: BP 133/89; PULSE 92; RESP 16; TEMP 37.3; O2SAT 94
[2021-12-11 18:45] VITALS: BMI 31.4
[2021-12-11] MEDS: hydrOXYzine HCL 25 MG TABLET PO (19:20)
[2021-12-11 19:35] VITALS: BP 173/91; PULSE 91; RESP 20; TEMP 37.7; O2SAT 97
[2021-12-11] MEDS: traZODone HCL 100 MG TABLET 200 MG PO (20:52)
[2021-12-11] MEDS: Labetalol HCL 100 MG TABLET 300 MG PO (20:53)
[2021-12-12] VITALS (7 sets, daily range): BP systolic 135–153; BP diastolic 82–99; PULSE 66–73; RESP 13–18; TEMP 36.3–37; O2SAT 95–98
--- NOTE | 2021-12-12 02:50 | PC.NURSE ---
PT C/O OF NAUSEA NOT DUE FOR ZOFRAN UNTIL 633. notified and said to give another dose of zofran now.
[2021-12-12] MEDS: ondansetron HCL 4 MG/2 ML VIAL IVPUSH ×2 (02:56→16:18)
[2021-12-12] MEDS: hydrOXYzine HCL 25 MG TABLET PO ×2 (03:01→16:18)
[2021-12-12] MEDS: Labetalol HCL 100 MG TABLET 300 MG PO ×2 (08:45→20:54)
[2021-12-12] MEDS: PHENobarbitaL 15 MG TABLET 45 MG PO ×2 (08:45→20:54)
[2021-12-12] MEDS: Famotidine/PF 20 MG/2 ML VIAL IVPUSH ×2 (08:46→20:52)
[2021-12-12] MEDS: Thiamine HCL 100 MG TABLET PO (08:46)
[2021-12-12] MEDS: Acetaminophen 325 MG TABLET 650 MG PO ×2 (08:46→16:17)
[2021-12-12] MEDS: 0.9 % Sodium Chloride Flush 3 ML SYRINGE IVFLUSH ×3 (08:47→20:54)
--- NOTE | 2021-12-12 09:56 | MHC.RECOVRN ---
Addendum entered by Laure Sands 12/12/21 11:17: CSS referral also sent to [facility]. Original Note: Met with pt in 353 to discuss alcohol use. Pt reports having been admitted to [facility] at the begining of November and was sent to [facility] due to anxiety and the meds not working. Subsequently, pt was admitted psychiatrically and discharged from [facility] on 11/23. Shortly after pt returned to drinking alcohol, has been drinking about 1 gallon of wine daily for a couple weeks. Pt states I have to do something else, what I'm doing isn't working. Pt reports hx of binging and abstaining for a month at a time. However, pt wishes to obtain complete abstinence. Discussed CSS level of care, pt agreeable. Pt also interested in meeting with Deputy [employer] Of [employer], will have that arranged while inpatient. Pt interested in CSS referrals statewide, referrals sent to [facility] [place] [facility] as well as [facility] [place]. Will continue to follow.
[2021-12-12] MEDS: oxyCODONE HCl Immed Release 5 MG TABLET PO ×2 (13:54→19:50)
[2021-12-12] MEDS: Enoxaparin Sodium 40 MG/0.4 ML SYRINGE SUBCUT (13:55)
[2021-12-12] MEDS: traZODone HCL 100 MG TABLET 200 MG PO (20:53)
--- NOTE | 2021-12-12 20:58 | MHC.RECOVSUP ---
? Reason for consult:ETOH o Current location:[facility] 353-1 o Identified substance use concern: - Seeking ATS (detox) - Support ? Intervention: o Community resources provided o Harm reduction discussion ? Plan: o Follow up tomorrow ? Additional information:RC met with PT and discussed harm reduction, and treatment, pt is interested in going to treatment upon discharge, most likely css or tss depending when he is discharged. I gave pt resources, and my contact info.
[2021-12-13] MEDS: Melatonin 3 MG TABLET 6 MG PO
[2021-12-13] MEDS: hydrOXYzine HCL 25 MG TABLET PO
[2021-12-13] MEDS: ondansetron HCL 4 MG/2 ML VIAL IVPUSH ×2 (02:28→17:38)
[2021-12-13] MEDS: HYDROmorphone HCl 2 MG TABLET 1 MG PO (03:46)
[2021-12-13 03:51] VITALS: BP 142/90; PULSE 67; RESP 18; TEMP 36.1; O2SAT 96
[2021-12-13 07:31] VITALS: BP 141/87; PULSE 72; RESP 18; TEMP 36.3; O2SAT 97
[2021-12-13] MEDS: PHENobarbitaL 15 MG TABLET 45 MG PO ×2 (07:40→19:32)
[2021-12-13] MEDS: oxyCODONE HCl Immed Release 5 MG TABLET PO ×3 (07:41→19:36)
[2021-12-13] MEDS: Thiamine HCL 100 MG TABLET PO (07:41)
[2021-12-13] MEDS: Labetalol HCL 100 MG TABLET 300 MG PO ×2 (07:41→19:31)
[2021-12-13] MEDS: Famotidine/PF 20 MG/2 ML VIAL IVPUSH ×2 (07:42→19:32)
[2021-12-13] MEDS: 0.9 % Sodium Chloride Flush 3 ML SYRINGE IVFLUSH ×3 (07:42→19:32)
--- NOTE | 2021-12-13 09:20 | HO.PM.IMPN ---
Subjective Subjective Date of Service: 12/13/21 Interval History: f/u on alcohol withdrawal and alcoholic gastritis interval history: c/o abd pain, Review of Systems abd pain, no n/v, no confusion, no sezure Physical Exam Vital Signs: Vital Signs: Last Vital Signs Temp 97.4 F 12/13/21 07:31 Pulse 72 12/13/21 07:31 Resp 18 12/13/21 07:31 BP 141/87 H 12/13/21 07:31 Pulse Ox 97 12/13/21 07:31 O2 Del Method 12/13/21 07:31 BMI result Body Mass Index 31.4 Const: Other: General: AO X 3, no acute distress Resp: CTA bilateral CVS: S1,S2,RRR GI: +BS, NT, no distention Skin: No rash Neuro: motor grossly intact Psych: appropriate affect Objective Data Active Medications Acetaminophen (Acetaminophen 325 Mg Tablet) 650 mg PO Q6H PRN PRN Reason: Pain, Mild (Pain Scale 1-3) Last Admin: 12/13/21 00:00 Dose: 650 mg Documented By: LOCO Enoxaparin Sodium (Enoxaparin Sodium 40 Mg/0.4 Ml Syringe) 40 mg SUBCUT Q24H [facility] Last Admin: 12/12/21 13:55 Dose: 40 mg Documented By: ANTHONY Famotidine (Famotidine/Pf 20 Mg/2 Ml Vial) 20 mg IVPUSH BID [facility] Last Admin: 12/13/21 07:42 Dose: 20 mg Documented By: TATIANA Hydroxyzine HCl (Hydroxyzine Hcl 25 Mg Tablet) 25 mg PO Q6H PRN PRN Reason: Anxiety Last Admin: 12/13/21 00:00 Dose: 25 mg Documented By: LOCO Labetalol HCl (Labetalol Hcl 100 Mg Tablet) 300 mg PO BID [facility] Last Admin: 12/13/21 07:41 Dose: 300 mg Documented By: TATIANA Melatonin (Melatonin 3 Mg Tablet) 6 mg PO BEDTIME PRN PRN Reason: Insomnia Last Admin: 12/13/21 00:00 Dose: 6 mg Documented By: LOCO Ondansetron HCl (Ondansetron Hcl 4 Mg/2 Ml Vial) 4 mg IVPUSH Q8H PRN PRN Reason: Nausea and Vomiting Last Admin: 12/13/21 02:28 Dose: 4 mg Documented By: LOCO Oxycodone HCl (Oxycodone Hcl Immed Release 5 Mg Tablet) 5 mg PO Q6H PRN PRN Reason: Pain, Severe (Pain Scale 7-10) Last Admin: 12/13/21 07:41 Dose: 5 mg Documented By: TATIANA Pharmacy Consult (Consult Rx Etoh Phenob Im/Po) 1 each MISCELLANE ONCE PRN; Protocol PRN Reason: Consult order Pharmacy Consult (Consult Rx Perform Med Rec) 1 each MISCELLANE ONCE PRN PRN Reason: Consult order Phenobarbital (Phenobarbital 15 Mg Tablet) 45 mg PO BID [facility]; Protocol Stop: 12/13/21 21:01 Last Admin: 12/13/21 07:40 Dose: 45 mg Documented By: TATIANA Phenobarbital (Phenobarbital 30 Mg Tablet) 30 mg PO BID [facility]; Protocol Stop: 12/15/21 21:01 Phenobarbital (Phenobarbital 30 Mg Tablet) 30 mg PO DAILY [facility]; Protocol Stop: 12/17/21 09:01 Sodium Chloride (0.9 % Sodium Chloride Flush 3 Ml Syringe) 3 ml IVFLUSH QSHIFT [facility] Last Admin: 12/13/21 07:42 Dose: 3 ml Documented By: TATIANA Thiamine HCl (Thiamine Hcl 100 Mg Tablet) 100 mg PO DAILY [facility] Last Admin: 12/13/21 07:41 Dose: 100 mg Documented By: TATIANA Trazodone HCl (Trazodone Hcl 100 Mg Tablet) 200 mg PO BEDTIME [facility] Last Admin: 12/12/21 20:53 Dose: 200 mg Documented By: LOCO Labs CBC & Chem 7: 12/11/21 10:32 12/11/21 12:22 Assessment and Plan (1) Acute alcoholic gastritis: Status: Acute (2) Alcohol abuse with withdrawal: Status: Acute Plan ?56yo M with hx AUD, HTN, DM2, bipolar disorder, alcohol dependence here with alcoholic gastritis and alcohol withdrawal #Alcohol withdrawal--calm, no sings of withdrawal -continue Phenobarbital #Abdominal pain d/t gastritis -Add IV Pepcid -oxycodone for pain -if perisists then GI consult #HTN--cpmtomie Labetalol #Anxiety depression-noncompliant with Klonopin, fluoxetine, Seroquel, Trileptal.? Recommend outpatient psychiatry evaluation ? #Insomnia:continue home trazodone #diabetes--hold metformin, SSI Need for inpatient: Alcohol withdrawal treatment, gastritisthat may need EGD Quality Stroke Does the patient have a stroke diagnosis?: No VTE Prior VTE?: No VTE Risk Level:: Medical - moderate - high VTE Device Contraindication: Treatment Not Indicated VTE Drug Contraindication: N/A - Med Ordered
[2021-12-13 11:31] VITALS: BP 144/85; PULSE 71; RESP 18; TEMP 36.1; O2SAT 97
--- NOTE | 2021-12-13 11:53 | MHC.RECOVRN ---
Attempted to contact [facility] re CSS bed availability this week, awaiting call back. [facility] and [facility] will need to be contacted when a discharge date is determined.
--- NOTE | 2021-12-13 12:49 | MHC.CM.PN ---
PT REPORTS HE LIVES WITH HIS FIANCEEMY, AND IS INDEPENDENT WITH CARE PT DENIES USE OF DME OR HOME SERVICES PT REPORTS HIS PCP IS THERESA CAVANAUGH PT SAYS HE IS COVID VACCINATED HCP OPN FILE DCP HOME VS HOME WITH RECOVERY RESOURCES S/O TO TRANSPORT
[2021-12-13] MEDS: Acetaminophen 325 MG TABLET 650 MG PO ×2 (14:00)
[2021-12-13] MEDS: Enoxaparin Sodium 40 MG/0.4 ML SYRINGE SUBCUT (15:28)
[2021-12-13 15:37] VITALS: BP 124/94; PULSE 70; RESP 17; TEMP 36.3; O2SAT 97
[2021-12-13 19:26] VITALS: BP 152/91; PULSE 76; RESP 20; TEMP 36.3; O2SAT 98
[2021-12-13] MEDS: traZODone HCL 100 MG TABLET 200 MG PO (19:31)
[2021-12-14] VITALS (7 sets, daily range): BP systolic 126–169; BP diastolic 81–113; PULSE 68–78; RESP 16–20; TEMP 36.1–36.9; O2SAT 97–99
[2021-12-14] MEDS: ondansetron HCL 4 MG/2 ML VIAL IVPUSH (01:08)
[2021-12-14] MEDS: hydrOXYzine HCL 25 MG TABLET PO (05:53)
[2021-12-14] MEDS: oxyCODONE HCl Immed Release 5 MG TABLET PO ×3 (05:53→15:37)
[2021-12-14 08:37] LABS: Mean Corpuscular HGB Conc 35.5 g/dl (31.0-36.0); Mean Corpuscular Hemoglobin 31.4 pg (27.0-33.0); Mean Corpuscular Volume 88.4 fL (80.0-98.0); Mean Platelet Volume 10.1 fL (9.4-12.4); NRBC Pct Auto 0.6 /100WBC (0.0-0.2); Red Blood Count 3.98 X10*6/uL (4.60-5.80); Red Cell Distribution Width 13.4 % (11.0-16.0); White Blood Count 3.5 X10*3/uL (4.8-10.8)
[2021-12-14] MEDS: Famotidine/PF 20 MG/2 ML VIAL IVPUSH ×2 (08:38→20:33)
[2021-12-14] MEDS: 0.9 % Sodium Chloride Flush 3 ML SYRINGE IVFLUSH ×3 (08:38→20:34)
[2021-12-14] MEDS: Labetalol HCL 100 MG TABLET 300 MG PO ×2 (08:39→20:33)
[2021-12-14] MEDS: Thiamine HCL 100 MG TABLET PO (08:39)
[2021-12-14] MEDS: PHENobarbitaL 30 MG TABLET PO ×2 (08:39→20:33)
[2021-12-14 08:40] LABS: Hematocrit 35.2 % (42.0-52.0); Hemoglobin 12.5 g/dl (14.0-18.0); Platelet Count 69 X10*3/uL (160-400)
--- NOTE | 2021-12-14 11:35 | HO.PM.IMPN ---
Subjective Subjective Date of Service: 12/14/21 Interval History: f/u on alcohol withdrawal and alcoholic gastritis interval history: c/o abd pain and not able to eat even jello Review of Systems abd pain, no n/v, no confusion, no sezure Physical Exam Vital Signs: Vital Signs: Last Vital Signs Temp 97.1 F 12/14/21 08:00 Pulse 78 12/14/21 08:00 Resp 18 12/14/21 08:00 BP 169/113 H 12/14/21 08:00 Pulse Ox 97 12/14/21 08:00 O2 Del Method 12/14/21 08:00 BMI result Body Mass Index 31.4 Const: Other: General: AO X 3, no acute distress Resp: CTA bilateral CVS: S1,S2,RRR GI: +BS, NT, no distention Skin: No rash Neuro: motor grossly intact Psych: appropriate affect Objective Data Active Medications Acetaminophen (Acetaminophen 325 Mg Tablet) 650 mg PO Q6H PRN PRN Reason: Pain, Mild (Pain Scale 1-3) Last Admin: 12/13/21 14:00 Dose: 650 mg Documented By: NIHARIKA Enoxaparin Sodium (Enoxaparin Sodium 40 Mg/0.4 Ml Syringe) 40 mg SUBCUT Q24H [facility] Last Admin: 12/13/21 15:28 Dose: 40 mg Documented By: NIHARIKA Famotidine (Famotidine/Pf 20 Mg/2 Ml Vial) 20 mg IVPUSH BID [facility] Last Admin: 12/14/21 08:38 Dose: 20 mg Documented By: ELIE Hydroxyzine HCl (Hydroxyzine Hcl 25 Mg Tablet) 25 mg PO Q6H PRN PRN Reason: Anxiety Last Admin: 12/14/21 05:53 Dose: 25 mg Documented By: KYLIE Labetalol HCl (Labetalol Hcl 100 Mg Tablet) 300 mg PO BID [facility] Last Admin: 12/14/21 08:39 Dose: 300 mg Documented By: ELIE Melatonin (Melatonin 3 Mg Tablet) 6 mg PO BEDTIME PRN PRN Reason: Insomnia Last Admin: 12/13/21 00:00 Dose: 6 mg Documented By: LOCO Ondansetron HCl (Ondansetron Hcl 4 Mg/2 Ml Vial) 4 mg IVPUSH Q8H PRN PRN Reason: Nausea and Vomiting Last Admin: 12/14/21 01:08 Dose: 4 mg Documented By: KYLIE Oxycodone HCl (Oxycodone Hcl Immed Release 5 Mg Tablet) 5 mg PO Q4H PRN PRN Reason: Pain, Severe (Pain Scale 7-10) Last Admin: 12/14/21 10:44 Dose: 5 mg Documented By: ELIE Pharmacy Consult (Consult Rx Etoh Phenob Im/Po) 1 each MISCELLANE ONCE PRN; Protocol PRN Reason: Consult order Pharmacy Consult (Consult Rx Perform Med Rec) 1 each MISCELLANE ONCE PRN PRN Reason: Consult order Phenobarbital (Phenobarbital 30 Mg Tablet) 30 mg PO BID [facility]; Protocol Stop: 12/15/21 21:01 Last Admin: 12/14/21 08:39 Dose: 30 mg Documented By: ELIE Phenobarbital (Phenobarbital 30 Mg Tablet) 30 mg PO DAILY [facility]; Protocol Stop: 12/17/21 09:01 Sodium Chloride (0.9 % Sodium Chloride Flush 3 Ml Syringe) [address] [facility] Last Admin: 12/14/21 08:38 Dose: 3 ml Documented By: ELIE Thiamine HCl (Thiamine Hcl 100 Mg Tablet) 100 mg PO DAILY [facility] Last Admin: 12/14/21 08:39 Dose: 100 mg Documented By: ELIE Trazodone HCl (Trazodone Hcl 100 Mg Tablet) 200 mg PO BEDTIME [facility] Last Admin: 12/13/21 19:31 Dose: 200 mg Documented By: KYLIE Labs CBC & Chem 7: 12/14/21 08:07 12/11/21 12:22 Labs: Laboratory Results - last 24 hr 12/14/21 08:07 MCV 88.4 MCH 31.4 MCHC 35.5 RDW 13.4 Plt Count 69 L D MPV 10.1 Absolute Nucleated RBC 0.020 H Nucleated RBC % (auto) 0.6 H Assessment and Plan (1) Acute alcoholic gastritis: Status: Acute (2) Diabetes mellitus: Status: Acute Plan ?56yo M with hx AUD, HTN, DM2, bipolar disorder, alcohol dependence here with alcoholic gastritis and alcohol withdrawal #Alcohol withdrawal--calm, no sings of withdrawal -continue Phenobarbital #Abdominal pain d/t gastritis -Add IV Pepcid -oxycodone for pain - GI consult given persistance of pain, IV PPI #HTN--cpmtomie Labetalol #Anxiety depression-noncompliant with Klonopin, fluoxetine, Seroquel, Trileptal.? Recommend outpatient psychiatry evaluation ? #Insomnia:continue home trazodone #diabetes--hold metformin, SSI Need for inpatient: Alcohol withdrawal treatment, gastritisthat may need EGD to be evaluated by GI Quality Stroke Does the patient have a stroke diagnosis?: No VTE Prior VTE?: No VTE Risk Level:: Medical - moderate - high VTE Device Contraindication: Treatment Not Indicated VTE Drug Contraindication: N/A - Med Ordered
--- NOTE | 2021-12-14 11:48 | P.CNGI_ITS ---
History of Present Illness Data of Consult Service Date: 12/14/21 Requesting physician: Herminio [facility] Primary Care Provider: Unknown Physician HPI Reason for consult: abdominal pain 56-year-old male with history of alcohol abuse, insomnia, essential hypertension who I am seeing for assessment for abdominal pain. Patient initially admitted with nausea, blood tinged emesis, and severe 10/10 epigastric twisting pain which is not radiating and worse after eating food, but ok with water. He also noted worsening reflux but no dysphagia, no rectal bleeding, having normal stools. He fell few days ago whilst drunk and has right sided black eye but no headache, visual disturbances or tactile or auditory hallucinations. He had tremors on admission but better now with alcohol withdrawal protocol. He drinks about a gallon of wine every day for the last 2 weeks and tends to binge with short periods of alcohol free periods. He has been drinking heavily for 35 yrs due to father being alcoholic. Labs: Hgb 16 on admission, then 12 closer to his baseline, mild AST, ALT elevation, INR1.0, pos alcohol blood level, no hep serologies on file Last US liver 2020-- diffuse steatosis Review of Systems Review of Systems: Constitutional : No Weight loss, No Fever, No Chills ENT/Mouth : No sore throat, No Rhinorrhea Eyes: No Swelling, No Redness Cardiovascular : No Chest Pain, No SOB, No Edema Respiratory : No Cough, No Sputum, No Wheezing Gastrointestinal : see HPI Genitourinary : NO Dysuria, No Urinary Frequency, No Hematuria, No Urgency Musculoskeletal : No joint pain, No Myalgias, No Joint Swelling Skin : No Skin Lesions, No rash Neuro : No Weakness, No Numbness, No Dizziness, No Headache Psych : No Anxiety/Panic, No Depression Heme/Lymph: No Bruising, No Lymphadenopathy Endocrine : No Polyuria, No Polydipsia All other systems reviewed and are negative. [facility] Past Medical History Medical History (Updated 12/11/21 @ 15:07 by Sayra Arrieta MD) Acute hepatitis Alcohol use disorder, severe, dependence Alcohol withdrawal Anxiety Diabetes mellitus GERD without esophagitis History of alcoholic hepatitis HTN (hypertension) Mixed hyperlipidemia Obesity (BMI 30-39.9) Recurrent moderate major depressive disorder with anxiety Family History Family History Father Advanced cirrhosis of liver Alcoholic cirrhosis Substance use disorder Mother Dementia Maternal Grandfather Substance use disorder Sister Substance use disorder Surgical History Surgical History No pertinent past surgical history Social History Social History Household Members: Significant Other Household Members Other:: 2 Housing: House Do you presently have visiting nurse or other home services: No Alcohol intake: current Alcohol intake frequency: 3 or more drinks per day Alcohol type: wine Patient Tobacco Use Status: Former Tobacco user Tobacco use type: Cigarette Years Smoked: quit 10 years ago e-Cigarette/Vaping Use: Never Used Second Hand Smoke Exposure: No Substance Use Type: Marijuana Advance Directives Date on File: 10/23/21 service: No Current occupational status: 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 Meds Allergies Allergy/AdvReac Type Severity Reaction Status Date / Time No Known Allergies Allergy Verified 11/15/21 11:43 [No Known Allergies*] Active Medications: Current Medications Acetaminophen (Acetaminophen 325 Mg Tablet) 650 mg PO Q6H PRN PRN Reason: Pain, Mild (Pain Scale 1-3) Last Admin: 12/13/21 14:00 Dose: 650 mg Enoxaparin Sodium (Enoxaparin Sodium 40 Mg/0.4 Ml Syringe) 40 mg SUBCUT Q24H [facility] Last Admin: 12/13/21 15:28 Dose: 40 mg Famotidine (Famotidine/Pf 20 Mg/2 Ml Vial) 20 mg IVPUSH BID [facility] Last Admin: 12/14/21 08:38 Dose: 20 mg Hydroxyzine HCl (Hydroxyzine Hcl 25 Mg Tablet) 25 mg PO Q6H PRN PRN Reason: Anxiety Last Admin: 12/14/21 05:53 Dose: 25 mg Labetalol HCl (Labetalol Hcl 100 Mg Tablet) 300 mg PO BID [facility] Last Admin: 12/14/21 08:39 Dose: 300 mg Melatonin (Melatonin 3 Mg Tablet) 6 mg PO BEDTIME PRN PRN Reason: Insomnia Last Admin: 12/13/21 00:00 Dose: 6 mg Ondansetron HCl (Ondansetron Hcl 4 Mg/2 Ml Vial) 4 mg IVPUSH Q8H PRN PRN Reason: Nausea and Vomiting Last Admin: 12/14/21 01:08 Dose: 4 mg Oxycodone HCl (Oxycodone Hcl Immed Release 5 Mg Tablet) 5 mg PO Q4H PRN PRN Reason: Pain, Severe (Pain Scale 7-10) Last Admin: 12/14/21 10:44 Dose: 5 mg Pharmacy Consult (Consult Rx Etoh Phenob Im/Po) 1 each MISCELLANE ONCE PRN; Protocol PRN Reason: Consult order Pharmacy Consult (Consult Rx Perform Med Rec) 1 each MISCELLANE ONCE PRN PRN Reason: Consult order Phenobarbital (Phenobarbital 30 Mg Tablet) 30 mg PO BID [facility]; Protocol Stop: 12/15/21 21:01 Last Admin: 12/14/21 08:39 Dose: 30 mg Phenobarbital (Phenobarbital 30 Mg Tablet) 30 mg PO DAILY [facility]; Protocol Stop: 12/17/21 09:01 Sodium Chloride (0.9 % Sodium Chloride Flush 3 Ml Syringe) 3 ml IVFLUSH QSHIFT [facility] Last Admin: 12/14/21 08:38 Dose: 3 ml Thiamine HCl (Thiamine Hcl 100 Mg Tablet) 100 mg PO DAILY [facility] Last Admin: 12/14/21 08:39 Dose: 100 mg Trazodone HCl (Trazodone Hcl 100 Mg Tablet) 200 mg PO BEDTIME [facility] Last Admin: 12/13/21 19:31 Dose: 200 mg Home Medications Medication Instructions Recorded Confirmed Last Taken Type labetalol 300 mg tablet 1 tab PO BID 12/11/21 12/11/21 Unknown History Physical Exam Vital Signs: Vital Signs: Last Vital Signs Temp 97.1 F 12/14/21 08:00 Pulse 78 12/14/21 08:00 Resp 18 12/14/21 08:00 BP 169/113 H 12/14/21 08:00 Pulse Ox 97 12/14/21 08:00 O2 Del Method 12/14/21 08:00 BMI result Body Mass Index 31.4 EXAM: GENERAL: The patient is obese VITAL SIGNS:see workflow HEENT: Nonicteric sclerae, PERRLA, EOMI. Oropharynx clear. Moist mucous membranes. Conjunctivae appear well perfused. No thyroid mass. CHEST: Chest wall is nontender. HEART: Regular rate and rhythm without murmurs. LUNGS: Clear to auscultation bilaterally. ABDOMEN: Soft, positive bowel sounds, tender, no organomegaly.no flank tenderness SKIN: No rash, no excessive bruising, petechiae epigastrium, or purpura. elena orbital bruising right eye NEUROLOGIC: Cranial nerves II-XII intact without motor/sensory deficit. psych-nml affect Results Labs CBC & Chem 7: 12/14/21 08:07 12/14/21 12:55 Labs: Short CBC 12/14/21 Range/Units 08:07 WBC 3.5 L (4.8-10.8) X10*3/uL Hgb 12.5 L D (14.0-18.0) g/dl Hct 35.2 L D (42.0-52.0) % Plt Count 69 L D (160-400) X10*3/uL Assessment and Plan (1) Pancytopenia: Status: Acute (2) Acute alcoholic gastritis: Qualifiers: Gastritis bleeding: without bleeding Qualified Code(s): K29.20 - Alcoholic gastritis without bleeding Status: Acute (3) Alcohol use disorder, severe, dependence: Status: Acute Plan 1/ Abdominal pain, epigastric, most likely due to alcoholic gastritis, ddx; pancreatitis (no lipase or imaging on admission), PUD, GOO and pyloric stenosis. LFT on admission were not consistent with alcoholic hepatitis 2/ pancytopenia, likely from alcohol use vs nutritional def e.g folate or b vitamins, ddx; Hep B,C, HIV PLAN: 1/ Would check lipase, and recheck lft since been few days 2/ high dose PPI with carafate, anti emetic scheduled for 2-3 days 3/ if ongoing sx then can consider EGD vs US imaging 4/ check folic, b12, b1, hiv, hep c, c serologies Procedures Date of Service Date of Service: 12/14/21
[2021-12-14] MEDS: Sucralfate Oral Suspension 1 GM/10 ML ORAL.SUSP PO ×2 (12:28→20:33)
[2021-12-14 13:21] LABS: Alanine Aminotransferase 47 U/L (0-40); Albumin Level 4.1 g/dL (3.5-5.0); Alkaline Phosphatase 49 U/L (39-117); Anion Gap 17 (12-20); Aspartate Amino Transferase 67 U/L (5-37); Bilirubin Total 0.6 mg/dL (0.0-1.0); Blood Urea Nitrogen 7 mg/dL (9-16); Calcium 7.7 mg/dL (8.4-10.2); Carbon Dioxide 24 mmol/L (22-29); Chloride 99 mmol/L (96-108); Creatinine Clr Calc Pharmacy 114.9; Estimated Glomerular Filt Rate > 60; Glucose Random 114 mg/dL (60-115); Lipase 33 U/L (8-78); Potassium 3.1 mmol/L (3.3-5.1); Sodium 137 mmol/L (135-145); Total Protein 6.5 g/dL (6.5-8.0)
[2021-12-14] MEDS: Pantoprazole Sodium 40 MG/10 ML VIAL IVPUSH (15:36)
[2021-12-14] MEDS: traZODone HCL 100 MG TABLET 200 MG PO (20:33)
[2021-12-14] MEDS: Melatonin 3 MG TABLET 6 MG PO (20:33)
[2021-12-15 03:19] VITALS: BP 127/69; PULSE 74; RESP 16; TEMP 36.5; O2SAT 98
[2021-12-15] MEDS: Pantoprazole Sodium 40 MG/10 ML VIAL IVPUSH ×2 (05:33→15:35)
[2021-12-15 07:30] VITALS: BP 176/98; PULSE 72; RESP 18; TEMP 36.4; O2SAT 97
[2021-12-15] MEDS: Famotidine/PF 20 MG/2 ML VIAL IVPUSH ×2 (08:08→20:19)
[2021-12-15] MEDS: 0.9 % Sodium Chloride Flush 3 ML SYRINGE IVFLUSH ×3 (08:08→20:20)
[2021-12-15] MEDS: PHENobarbitaL 30 MG TABLET PO ×2 (08:08→20:19)
[2021-12-15] MEDS: Labetalol HCL 100 MG TABLET 300 MG PO ×2 (08:08→20:19)
[2021-12-15] MEDS: Sucralfate Oral Suspension 1 GM/10 ML ORAL.SUSP PO ×2 (08:08→20:18)
[2021-12-15] MEDS: Thiamine HCL 100 MG TABLET PO (08:08)
[2021-12-15 08:54] LABS: Hematocrit 36.4 % (42.0-52.0); Hemoglobin 12.7 g/dl (14.0-18.0); Mean Corpuscular HGB Conc 34.9 g/dl (31.0-36.0); Mean Corpuscular Hemoglobin 31.3 pg (27.0-33.0); Mean Corpuscular Volume 89.7 fL (80.0-98.0); Mean Platelet Volume 9.7 fL (9.4-12.4); Red Blood Count 4.06 X10*6/uL (4.60-5.80); Red Cell Distribution Width 13.5 % (11.0-16.0)
[2021-12-15 08:58] LABS: Platelet Count 78 X10*3/uL (160-400); White Blood Count 3.3 X10*3/uL (4.8-10.8)
[2021-12-15 09:20] LABS: Iron 54 mcg/dL (45-160); Percent Iron Saturation 16 % (15-50); Potassium 3.4 mmol/L (3.3-5.1); Total Iron Binding Capacity 340 mcg/dL (228-428); Unsaturated Iron Binding 286 ug/dL
[2021-12-15 09:37] LABS: HBS Num1 0.98 mIU/mL (0-7.99); HBc Num1 0.05 S/CO (0.00-0.79); Hepatitis A Antibody IgM 0.15 Index (0-0.79); Hepatitis B Core Antibody Nonreactive (Nonreactive); Hepatitis B Surface Antigen Negative (Negative); ~HepC Num1 0.07 S/CO (0.00-0.79); ~Hepatitis A Antibody IgM Nonreactive (Nonreactive); ~Hepatitis B Surface Antibody NONREACTIVE (Nonreactive); ~Hepatitis C Antibody Nonreactive (Nonreactive)
[2021-12-15 09:56] LABS: Folate > 20.0 ng/mL (> or = 4.0); Vitamin B12 711 pg/mL (200-900)
[2021-12-15 11:21] VITALS: BP 168/98; PULSE 69; RESP 18; TEMP 36.3; O2SAT 97
[2021-12-15] MEDS: Acetaminophen 325 MG TABLET 650 MG PO (15:35)
[2021-12-15 15:41] VITALS: BP 172/99; PULSE 81; RESP 18; TEMP 36.7; O2SAT 98
--- NOTE | 2021-12-15 18:20 | HO.PM.IMPN ---
Subjective Subjective Date of Service: 12/15/21 Interval History: alcohol withdrawal, gastritis Review of Systems patient still has abdominal pain unable to tolerate diet yet Physical Exam Vital Signs: Vital Signs: Last Vital Signs Temp 98.0 F 12/15/21 15:41 Pulse 81 12/15/21 15:41 Resp 18 12/15/21 15:41 BP 172/99 H 12/15/21 15:41 Pulse Ox 98 12/15/21 15:41 O2 Del Method 12/15/21 15:41 O2 Flow Rate 98 12/14/21 16:00 BMI result Body Mass Index 31.4 General: AO X 3, no acute distress Resp:? CTA bilateral CVS: S1,S2,RRR GI: +BS,epigastric disconfort/afraid to eat, no distention Skin: No rash Neuro:? motor grossly intact Psych: appropriate affect Objective Data Active Medications Acetaminophen (Acetaminophen 325 Mg Tablet) 650 mg PO Q6H PRN PRN Reason: Pain, Mild (Pain Scale 1-3) Last Admin: 12/15/21 15:35 Dose: 650 mg Documented By: ELIE Enoxaparin Sodium (Enoxaparin Sodium 40 Mg/0.4 Ml Syringe) 40 mg SUBCUT Q24H [facility] Last Admin: 12/14/21 15:39 Dose: Not Given Documented By: ELIE Non-Admin Reason: Patient Refused Famotidine (Famotidine/Pf 20 Mg/2 Ml Vial) 20 mg IVPUSH BID [facility] Last Admin: 12/15/21 08:08 Dose: 20 mg Documented By: ELIE Hydroxyzine HCl (Hydroxyzine Hcl 25 Mg Tablet) 25 mg PO Q6H PRN PRN Reason: Anxiety Last Admin: 12/14/21 05:53 Dose: 25 mg Documented By: KYLIE Labetalol HCl (Labetalol Hcl 100 Mg Tablet) 300 mg PO BID [facility] Last Admin: 12/15/21 08:08 Dose: 300 mg Documented By: ELIE Melatonin (Melatonin 3 Mg Tablet) 6 mg PO BEDTIME PRN PRN Reason: Insomnia Last Admin: 12/14/21 20:33 Dose: 6 mg Documented By: CASTILJefferson Ondansetron HCl (Ondansetron Hcl 4 Mg/2 Ml Vial) 4 mg IVPUSH Q8H PRN PRN Reason: Nausea and Vomiting Last Admin: 12/14/21 01:08 Dose: 4 mg Documented By: KYLIE Oxycodone HCl (Oxycodone Hcl Immed Release 5 Mg Tablet) 5 mg PO Q4H PRN PRN Reason: Pain, Severe (Pain Scale 7-10) Last Admin: 12/14/21 15:37 Dose: 5 mg Documented By: ELIE Pantoprazole Sodium (Pantoprazole Sodium 40 Mg/10 Ml Vial) 40 mg IVPUSH BID@0630,1630 [facility] Last Admin: 12/15/21 15:35 Dose: 40 mg Documented By: ELIE Pharmacy Consult (Consult Rx Etoh Phenob Im/Po) 1 each MISCELLANE ONCE PRN; Protocol PRN Reason: Consult order Pharmacy Consult (Consult Rx Perform Med Rec) 1 each MISCELLANE ONCE PRN PRN Reason: Consult order Phenobarbital (Phenobarbital 30 Mg Tablet) 30 mg PO BID [facility]; Protocol Stop: 12/15/21 21:01 Last Admin: 12/15/21 08:08 Dose: 30 mg Documented By: ELIE Phenobarbital (Phenobarbital 30 Mg Tablet) 30 mg PO DAILY [facility]; Protocol Stop: 12/17/21 09:01 Sodium Chloride (0.9 % Sodium Chloride Flush 3 Ml Syringe) [facility] Last Admin: 12/15/21 15:35 Dose: 3 ml Documented By: ELIE Sucralfate (Sucralfate Oral Suspension 1 Gm/10 Ml Oral.Susp) 1 gm PO BID [facility] Last Admin: 12/15/21 08:08 Dose: 1 gm Documented By: ELIE Thiamine HCl (Thiamine Hcl 100 Mg Tablet) 100 mg PO DAILY [facility] Last Admin: 12/15/21 08:08 Dose: 100 mg Documented By: ELIE Trazodone HCl (Trazodone Hcl 100 Mg Tablet) 200 mg PO BEDTIME [facility] Last Admin: 12/14/21 20:33 Dose: 200 mg Documented By: LESTER Labs CBC & Chem 7: 12/15/21 08:34 12/15/21 08:34 Labs: Laboratory Results - last 24 hr 12/15/21 12/15/21 12/15/21 08:34 08:34 08:34 MCV 89.7 MCH 31.3 MCHC 34.9 RDW 13.5 Plt Count 78 L MPV 9.7 Absolute Nucleated RBC 0.000 Nucleated RBC % (auto) 0.0 Iron 54 TIBC 340 % Saturation 16 Unsat Iron Binding 286 Vitamin B12 711 Folate > 20.0 Hepatitis A IgM Ab Hep Bs Antigen Hep Bs Antibody Hep B Core Total Ab Hepatitis C Ab (EIA) 12/15/21 08:34 MCV MCH MCHC RDW Plt Count MPV Absolute Nucleated RBC Nucleated RBC % (auto) Iron TIBC % Saturation Unsat Iron Binding Vitamin B12 Folate Hepatitis A IgM Ab Nonreactive Hep Bs Antigen Negative Hep Bs Antibody NONREACTIVE Hep B Core Total Ab Nonreactive Hepatitis C Ab (EIA) Nonreactive Assessment and Plan (1) Alcohol abuse with withdrawal: Status: Acute (2) Acute alcoholic gastritis: Status: Acute (3) Hypokalemia: Status: Acute Plan 56yo M with hx AUD, HTN, DM2, bipolar disorder, alcohol dependence here with alcoholic gastritis and alcohol withdrawal #Alcohol withdrawal--calm, no sings of withdrawal -continue Phenobarbital #Abdominal pain d/t gastritis -Add IV Pepcid -oxycodone for pain - GI consult given persistance of pain, IV PPI,sucralfate #HTN--continue adjusted Labetalol. #Anxiety depression-noncompliant with Klonopin, fluoxetine, Seroquel, Trileptal.? Recommend outpatient psychiatry evaluation ? #Insomnia:continue home trazodone #diabetes--hold metformin, SSI hypokalemia: repleted and resolved. Need for inpatient: Alcohol withdrawal treatment, gastritisthat may need EGD to be evaluated by GI Quality Stroke Does the patient have a stroke diagnosis?: No VTE Prior VTE?: No VTE Risk Level:: Medical - moderate - high VTE Device Contraindication: Treatment Not Indicated VTE Drug Contraindication: N/A - Med Ordered
[2021-12-15 19:32] VITALS: BP 165/101; PULSE 91; RESP 16; TEMP 36.6; O2SAT 97
[2021-12-15] MEDS: traZODone HCL 100 MG TABLET 200 MG PO (20:19)
[2021-12-15] MEDS: ondansetron HCL 4 MG/2 ML VIAL IVPUSH (20:35)
[2021-12-15 23:22] VITALS: BP 140/81; PULSE 81; RESP 16; TEMP 37.2; O2SAT 97
[2021-12-16] MEDS: oxyCODONE HCl Immed Release 5 MG TABLET PO ×2 (03:12→09:43)
[2021-12-16 03:16] VITALS: BP 156/98; PULSE 80; RESP 16; TEMP 36.3; O2SAT 98
[2021-12-16] MEDS: Pantoprazole Sodium 40 MG/10 ML VIAL IVPUSH (06:22)
[2021-12-16 07:55] VITALS: BP 182/92; PULSE 65; RESP 18; TEMP 36.6; O2SAT 96
[2021-12-16] MEDS: 0.9 % Sodium Chloride Flush 3 ML SYRINGE IVFLUSH (09:42)
[2021-12-16] MEDS: Famotidine/PF 20 MG/2 ML VIAL IVPUSH (09:42)
[2021-12-16] MEDS: Sucralfate Oral Suspension 1 GM/10 ML ORAL.SUSP PO (09:42)
[2021-12-16] MEDS: Labetalol HCL 100 MG TABLET 300 MG PO (09:43)
[2021-12-16] MEDS: PHENobarbitaL 30 MG TABLET PO (09:43)
[2021-12-16] MEDS: Thiamine HCL 100 MG TABLET PO (09:43)
[2021-12-16 11:42] VITALS: BP 177/94; PULSE 61; RESP 18; TEMP 36.7; O2SAT 98
--- NOTE | 2021-12-16 13:05 | P.PNIM_ITS ---
Subjective Subjective Date of Service: 12/16/21 Interval History: alcohol withdrawal, gastritis Review of Systems still has abdominal pain , says afraid to take p.o. feel nauseated Physical Exam Vital Signs: Vital Signs: Last Vital Signs Temp 98.1 F 12/16/21 11:42 Pulse 61 12/16/21 11:42 Resp 18 12/16/21 11:42 BP 177/94 H 12/16/21 11:42 Pulse Ox 98 12/16/21 11:42 O2 Del Method 12/16/21 11:42 O2 Flow Rate 98 12/14/21 16:00 BMI result Body Mass Index 31.4 General: AO X 3, no acute distress Resp:? CTA bilateral CVS: S1,S2,RRR GI: +BS,epigastric discomfort/afraid to eat, no distention Skin: No rash Neuro:? motor grossly intact Psych: appropriate affect Objective Data Active Medications Acetaminophen (Acetaminophen 325 Mg Tablet) 650 mg PO Q6H PRN PRN Reason: Pain, Mild (Pain Scale 1-3) Last Admin: 12/15/21 15:35 Dose: 650 mg Documented By: ELIE Capsaicin (Capsaicin 0.025% Cream 60 Gm Tube) 1 appl TOPICAL QID PRN; Protocol PRN Reason: abd pain Docusate Sodium (Docusate Sodium 100 Mg Capsule) 100 mg PO DAILY [facility] Enoxaparin Sodium (Enoxaparin Sodium 40 Mg/0.4 Ml Syringe) 40 mg SUBCUT Q24H [facility] Last Admin: 12/14/21 15:39 Dose: Not Given Documented By: ELIE Non-Admin Reason: Patient Refused Famotidine (Famotidine/Pf 20 Mg/2 Ml Vial) 20 mg IVPUSH BID [facility] Last Admin: 12/16/21 09:42 Dose: 20 mg Documented By: JOHNATHON Hydroxyzine HCl (Hydroxyzine Hcl 25 Mg Tablet) 25 mg PO Q6H PRN PRN Reason: Anxiety Last Admin: 12/14/21 05:53 Dose: 25 mg Documented By: KYLIE Labetalol HCl (Labetalol Hcl 100 Mg Tablet) 300 mg PO BID [facility] Last Admin: 12/16/21 09:43 Dose: 300 mg Documented By: JHONATHON Melatonin (Melatonin 3 Mg Tablet) 6 mg PO BEDTIME PRN PRN Reason: Insomnia Last Admin: 12/14/21 20:33 Dose: 6 mg Documented By: LESTER Ondansetron HCl (Ondansetron Hcl 4 Mg/2 Ml Vial) 4 mg IVPUSH Q8H PRN PRN Reason: Nausea and Vomiting Last Admin: 12/15/21 20:35 Dose: 4 mg Documented By: LONNIE Oxycodone HCl (Oxycodone Hcl Immed Release 5 Mg Tablet) 5 mg PO Q4H PRN PRN Reason: Pain, Severe (Pain Scale 7-10) Last Admin: 12/16/21 09:43 Dose: 5 mg Documented By: JOHNATHON Pantoprazole Sodium (Pantoprazole Sodium 40 Mg/10 Ml Vial) 40 mg IVPUSH BID@0630,1630 [facility] Last Admin: 12/16/21 06:22 Dose: 40 mg Documented By: SYEDA Pharmacy Consult (Consult Rx Etoh Phenob Im/Po) 1 each MISCELLANE ONCE PRN; Protocol PRN Reason: Consult order Pharmacy Consult (Consult Rx Perform Med Rec) 1 each MISCELLANE ONCE PRN PRN Reason: Consult order Phenobarbital (Phenobarbital 30 Mg Tablet) 30 mg PO DAILY [facility]; Protocol Stop: 12/17/21 09:01 Last Admin: 12/16/21 09:43 Dose: 30 mg Documented By: JOHNATHON Sodium Chloride (0.9 % Sodium Chloride Flush 3 Ml Syringe) 3 ml IVFLUSH QSHIFT [facility] Last Admin: 12/16/21 09:42 Dose: 3 ml Documented By: JOHNATHON Sucralfate (Sucralfate Oral Suspension 1 Gm/10 Ml Oral.Susp) 1 gm PO BID [facility] Last Admin: 12/16/21 09:42 Dose: 1 gm Documented By: JOHNATHON Thiamine HCl (Thiamine Hcl 100 Mg Tablet) 100 mg PO DAILY [facility] Last Admin: 12/16/21 09:43 Dose: 100 mg Documented By: JOHNATHON Trazodone HCl (Trazodone Hcl 100 Mg Tablet) 200 mg PO BEDTIME [facility] Last Admin: 12/15/21 20:19 Dose: 200 mg Documented By: LONNIE Labs CBC & Chem 7: 12/15/21 08:34 12/15/21 08:34 Assessment and Plan (1) Acute alcoholic gastritis: Status: Acute (2) Alcohol withdrawal: Status: Acute Plan 56yo M with hx AUD, HTN, DM2, bipolar disorder, alcohol dependence here with alcoholic gastritis and alcohol withdrawal #Alcohol withdrawal--calm, no sings of withdrawal -continue Phenobarbital #Abdominal pain d/t gastritis -Add IV Pepcid -oxycodone for pain - GI consult given persistance of pain, IV PPI,sucralfate,added capcian cream also added abd us #HTN--continue adjusted? Labetalol. #Anxiety depression-noncompliant with Klonopin, fluoxetine, Seroquel, Trileptal.? Recommend outpatient psychiatry evaluation ? #Insomnia:continue home trazodone #diabetes--hold metformin, SSI hypokalemia: repleted and resolved. Need for inpatient: Alcohol withdrawal treatment, gastritis unable to take po yet-need Gi workup. Quality Stroke Does the patient have a stroke diagnosis?: No VTE Prior VTE?: No VTE Risk Level:: Medical - moderate - high VTE Device Contraindication: Treatment Not Indicated VTE Drug Contraindication: N/A - Med Ordered
--- NOTE | 2021-12-16 15:37 | MHC.CM.PN ---
PER ROUNDS DISCUSSION PATIENT IS NOT YET MEDICALLY CLEARED FOR DISCHARGE R/T ALCOHOL WITHDRAWAL TREATMENT, GASTRITIS-UNABLE TO TAKE PO YET; NEED FOR ULTRASOUND AND GI WORK-UP. D/C CONTINUES TO BE HOME SELF-CARE vs HOME WITH CARE TEAM REC. CM WILL FOLLOW FOR D/C PLAN.
[2021-12-16 15:47] VITALS: BP 153/98; PULSE 72; RESP 17; TEMP 36.2; O2SAT 99
--- NOTE | 2021-12-16 17:28 | PM.EVENT ---
Event Note Date of Service: 12/16/21 Event Note: I spoke with the patient around 17:30 as his nurse texted me that he wants to leave AMA. The patient mention that he is feeling much better now with no recurrence of the pain and he has been tolerating diet well and does not want to wait until tomorrow to be discharged. I explained to him that he was kept in the hospital to continue treatment and if he leaves AMA he will not finish the treatment risking himself for worsening and might require further admission. He understood and agrees but preferred to go home. Discussed with the nurse old at him sign AMA papers and leak.
--- NOTE | 2021-12-17 07:59 | P.DS_ITS ---
DS: Providers Provider Date of Service: 12/17/21 Date of admission: 12/11/21 14:17 Primary care physician: Unknown Physician Consults: 12/11/21 14:20 Consult to Care Team Routine Comment: Reason for consultation: alcohol dependency 12/14/21 11:31 Consult to Gastroenterology Routine Consulting Provider: Kiara Stephenson Reason for consultation: Abd pain unlable to eat Has provider been notified: No DS: Diagnosis Discharge Diagnosis (1) Acute alcoholic gastritis: Status: Acute (2) Alcohol withdrawal: Status: Acute DS: Summary Hospital Course Hospital Course: 56-year-old male with a pertinent history of alcohol use disorder, insomnia, essential hypertension who presents to the emergency department with complaints of nausea/vomiting.? Patient states that he drinks about a gallon of wine every day, his last drink was last night.? He decided to quit this morning and started having nausea, abdominal pain,multiple episodes of emesis, his last episode of vomiting was blood-tinged.? He has associated bilateral hand tremors, sweating,? multiple episodes of emesis.? No headache, visual disturbances or tactile or auditory hallucinations. Patient also reports that he fell? 2 days ago while he was binge drinking, does not remember the details and has a black eye since. ?patient has not been taking his psych meds which include Trileptal, Seroquel, fluoxetine, Klonopin.? States he tried naltrexone but has not been compliant with it. ? In the emergency department, patient was given IV fluids, benzos and phenobarbital. Hospital course: Patient was admitted for alcohol withdrawal, also had possible alcohol related gastritis and mildly elevated LFT possibly secondary to alcohol use. Patient was started on phenobarb - alcohol withdrawal seems to be improved, patient still was having gastric discomfort which was treated with PPIs and sacral fat, elevated LFT: workup including hepatitis serologies A,B,C seems non reactive, abdominal ultrasound shows some fatty liver changes( please see imaging section below for detailed information). has pancytopenia -possible related to alcohol use , moniter cbc with pcp. patient was still having epigastric discomfort but later in the day decided to leave against the medical advise and risks explained. he said he is feeling better and wants to go, tolerating diet. Time Spent with Patient Time attestation: Total time spent providing and/or coordinating discharge services: Discharge coordination time: Greater than 30 minutes Quality: Safe Use of Opioids Does Pt have an Active Cancer Diagnosis on the Problem List?: No Quality: Stroke Does the patient have a stroke diagnosis?: No Physical Exam Vital Signs: Vital Signs: Last Vital Signs Temp 97.1 F 12/16/21 15:47 Pulse 72 12/16/21 15:47 Resp 17 12/16/21 15:47 BP 153/98 H 12/16/21 15:47 Pulse Ox 99 12/16/21 15:47 O2 Del Method 12/16/21 15:47 O2 Flow Rate 98 12/14/21 16:00 BMI result Body Mass Index 31.4 patient left AMA -please refer to my previous note for physical exam. DS: Data Data Completed and Pending Completed studies during hospitalization [Text1]: Procedures Detoxification Services for Substance Abuse Treatment (10/22/21) Drainage of Right Axilla, Open Approach (10/22/21) Additional Comments Additional comments: ? 12/15/21 12/15/21 12/15/21 ? 08:34 08:34 08:34 MCV ? ?89.7 ? MCH ? ?31.3 ? MCHC ? ?34.9 ? RDW ? ?13.5 ? Plt Count ? ?78 L ? MPV ? ?9.7 ? Absolute Nucleated RBCB ? ?0.000 ? Nucleated RBC % (auto) ? ?0.0 ? Iron ?54 ? ? TIBC ?340 ? ? % Saturation ?16 ? ? Unsat Iron Binding ?286 ? ? Vitamin B12 ? ? ?711 Folate ? ? ?> 20.0 Hepatitis A IgM Ab ? ? ? Hep Bs Antigen ? ? ? Hep Bs Antibody ? ? ? Hep B Core Total Ab ? ? ? Hepatitis C Ab (EIA) ? 12/15/21 ? 08:34 MCV ? MCH ? MCHC ? RDW ? Plt Count ? MPV ? Absolute Nucleated RBC ? Nucleated RBC % (auto) ? Iron ? TIBC ? % Saturation ? Unsat Iron Binding ? Vitamin B12 ? Folate ? Hepatitis A IgM Ab ?Nonreactive Hep Bs Antigen ?Negative Hep Bs Antibody ?NONREACTIVE Hep B Core Total Ab ?Nonreactive .Hepatitis C Ab (EIA) ?Nonreactive US/US abdomen complete IMPRESSION: Enlarged echogenic liver suggestive of fatty infiltration. Question small right renal stones. Limited visualization of the aorta Discharge Plan Discharge Patient Disposition: Left Against Medical Advice Discharge Diagnosis: alcohol withdrawal, gastritis,pancytopenia Referrals: Physician,Unknown J [Physician] - 1 Week Discharge Medications: New omeprazole 20 mg capsule,delayed release(DR/EC) 20 mg PO DAILY Qty: 30 0RF Continued metformin 500 mg tablet 1 tab PO BIDWM Qty: 60 0RF trazodone 100 mg Tablet 200 mg PO BEDTIME Qty: 60 0RF labetalol 300 mg tablet 1 tab PO BID Discharge Orders: Discharge Order (Routine); Ordered 12/16/21 Ordered By: Lolis Owusu Care Plan Goals: left ama follow up with pcp for lft's and cbc monitering Health Concerns: as above. Plan of Treatment: as above. Assessment: as above. Discharge Date/Time: 12/16/21 17:55
== END 2021-12-16 17:55 | disposition left against medical advice (07) | DRG 241 ==
LOC: HO.ED 13:24 → HO.EDOVER 14:32 → HO.S3 16:58
PROVIDERS: Internal Medicine; Internal Medicine Gastroenterology; Admitting Provider Student in an Organized Health Care Education/Training Program; Emergency Provider Emergency Medicine; PCP Nurse Practitioner Family; Visit Provider Internal Medicine
DX: K29.20 Alcoholic gastritis without bleeding (principal); D61.818 Other pancytopenia; E87.2 Acidosis; F33.9 Major depressive disorder, recurrent, unspecified; E78.2 Mixed hyperlipidemia; E11.9 Type 2 diabetes mellitus without complications; G47.00 Insomnia, unspecified; F10.239 Alcohol dependence with withdrawal, unspecified; Y90.6 Blood alcohol level of 120-199 mg/100 ml; E87.6 Hypokalemia; Z91.14 Patient's other noncompliance with medication regimen; Z71.41 Alcohol abuse counseling and surveillance of alcoholic; Z87.891 Personal history of nicotine dependence; Z20.822 Contact with and (suspected) exposure to COVID-19; Z79.84 Long term (current) use of oral hypoglycemic drugs; Z79.899 Other long term (current) drug therapy
CPT/HCPCS: 36415; 70450; 76700; 80048; 80053; 80076; 82077; 82607; 82746; 83540; 83690; 83735; 84132; 85025; 85027; 86704; 86706; 86709; 86803; 87340; 87635; 99285; J1650; J2250; J2405; J2550; J2560; J3411; J3475

== ENCOUNTER 2022-01-05 10:23 | Outpatient (REF) | payer OTHER, SELFPAY ==
[2022-01-05 11:53] LABS: Alanine Aminotransferase 37 U/L (0-40); Albumin Level 4.7 g/dL (3.5-5.0); Alkaline Phosphatase 70 U/L (39-117); Anion Gap 16 (12-20); Aspartate Amino Transferase 24 U/L (5-37); Bilirubin Total 0.4 mg/dL (0.0-1.0); Blood Urea Nitrogen 13 mg/dL (9-16); Calcium 9.9 mg/dL (8.4-10.2); Carbon Dioxide 29 mmol/L (22-29); Chloride 100 mmol/L (96-108); Cholesterol 273 mg/dL; Estimated Glomerular Filt Rate > 60; Glucose Fasting 128 mg/dL (60-99); HDL Cholesterol 43 mg/dL; Sodium 141 mmol/L (135-145); Total Protein 7.5 g/dL (6.5-8.0); Triglycerides 690 mg/dL
== END 2022-01-05 10:24 | disposition home or self-care (01) ==
LOC: HO.HMGCLDS 10:23
PROVIDERS: PCP Nurse Practitioner Family; Visit Provider Nurse Practitioner Family
DX: E78.2 Mixed hyperlipidemia (principal)
CPT/HCPCS: 36415; 80053; 80061

== ENCOUNTER 2022-01-13 15:05 | Outpatient (REF) | payer OTHER, SELFPAY ==
--- NOTE | ~2022-01-13 | XR_ITS ---
EXAMINATION: XR HIP, RIGHT CLINICAL INFORMATION: Pain in right hip COMPARISON: None TECHNIQUE: Two views of the right hip. FINDINGS: Bones and soft tissues are normal. No fracture. Alignment is anatomic. Hip joint space is maintained. XR/XR hip RT min 2V IMPRESSION: Unremarkable right hip exam
== END 2022-01-13 15:06 | disposition home or self-care (01) ==
LOC: HO.HMGCX 15:05
PROVIDERS: PCP Nurse Practitioner Family; Visit Provider Nurse Practitioner Family
DX: M25.551 Pain in right hip (principal)
CPT/HCPCS: 73502

== ENCOUNTER → 2022-03-19 13:23 | Outpatient (BNVA) | payer OTHER, SELFPAY | PROVIDERS: PCP Nurse Practitioner Family; Visit Provider Internal Medicine | DX: R10.9 Unspecified abdominal pain (principal); F10.21 Alcohol dependence, in remission | CPT/HCPCS: 99212 ==

== ENCOUNTER 2022-03-31 07:19 | Day surgery (SDC) | payer OTHER, SELFPAY ==
[2022-03-25 14:56] VITALS: BMI 32.8
--- NOTE | 2022-03-30 10:36 | HO.ANESPROP2 ---
Documented by User: Esperanza Guan NP 03/30/22 10:41 HPI - Anesthesia Eval Consult details Narrative: 56yo M for Upper Endoscopy ETOH abuse - sober since 12/2021, naltrexone Low PLTs PMFSH Active Problems Active Problems: All Active Problems (Updated 03/25/22 @ 14:49 by Seema Tejeda RN) Other bursal cyst, left ankle and foot (Acute) Other cyst of bone, left hand (Acute) Abscess (Acute) Alcohol abuse with withdrawal (Acute) Acute alcoholic hepatitis (Acute) Alcoholic ketoacidosis (Acute) Pancytopenia (Acute) Physical exam (Acute) Screening PSA (prostate specific antigen) (Acute) MDD (major depressive disorder), recurrent severe, without psychosis (Acute) Alcohol withdrawal (Acute) Acute alcoholic gastritis (Acute) Chest pain (Acute) Right hip pain (Acute) Abdominal pain (Acute) Alcoholism in remission (Acute) Recurrent moderate major depressive disorder with anxiety (Acute) Alcohol use disorder, severe, dependence (Acute) Obesity (BMI 30-39.9) (Acute) GERD without esophagitis (Acute) Mixed hyperlipidemia (Acute) Past Medical History Medical History Acute hepatitis Alcohol use disorder, severe, dependence Alcohol withdrawal Alcoholic ketoacidosis Anxiety with depression Benign essential hypertension Diabetes mellitus GERD without esophagitis History of alcoholic hepatitis HTN (hypertension) Insomnia Mixed hyperlipidemia Obesity (BMI 30-39.9) Recurrent moderate major depressive disorder with anxiety Family History Family History Father Advanced cirrhosis of liver Alcoholic cirrhosis Substance use disorder Mother Dementia Maternal Grandfather Substance use disorder Sister Substance use disorder Maternal Grandfather Colon cancer Prostate cancer Surgical History Surgical History H/O colonoscopy History of esophagogastroduodenoscopy (EGD) Social History Social History Household Members: Significant Other Household Members Other:: 2 Housing: House Do you presently have visiting nurse or other home services: No Alcohol intake: former Patient Tobacco Use Status: Former Tobacco user Tobacco use type: Cigarette Years Smoked: quit 10 years ago e-Cigarette/Vaping Use: Never Used Second Hand Smoke Exposure: No Substance Use Type: Marijuana Are you DNR?: No Advance Directives: Yes Advance Directives on File: Yes Advance Directives Date on File: 10/23/21 Recently lost weight without trying: No Nutrition Risks: No Nutritional Risk service: No Current occupational status: 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 Meds Allergies Allergy/AdvReac Type Severity Reaction Status Date / Time No Known Allergies Allergy Verified 03/19/22 13:31 [No Known Allergies*] Home Medications Medication Instructions Recorded Confirmed Last Taken Type labetalol 300 mg tablet 1 tab PO BID 12/11/21 03/31/22 03/30/22 History quetiapine 100 mg tablet 100 - 200 mg PO BEDTIME PRN anxiety 01/06/22 03/31/22 03/30/22 History paroxetine HCl 30 mg tablet 30 mg PO DAILY 02/24/22 03/31/22 03/30/22 History metformin 500 mg tablet 500 mg PO BID 03/19/22 03/31/22 03/30/22 History multivitamin 1 tab PO DAILY 03/19/22 03/31/22 03/30/22 History omeprazole 20 mg capsule,delayed 20 mg PO DAILY 03/19/22 03/31/22 03/30/22 History release Exam Exam Date and Time: March 30, 2022 1036 Height,Weight and Vital Signs: Height 5 ft 7 in Weight 95.254 kg Pertinent Lab Results Pertinent Lab Results: Laboratory Tests 12/15/21 01/05/22 08:34 10:28 WBC 3.3 L Hgb 12.7 L Hct 36.4 L Plt Count 78 L Sodium 141 Potassium 4.0 Chloride 100 Carbon Dioxide 29 BUN 13 D Creatinine 0.92 Narrative Narrative: US abdomen complete 12/2021 IMPRESSION: Enlarged echogenic liver suggestive of fatty infiltration. Question small right renal stones. Limited visualization of the aorta. EKG 12/2021 NSR @ 62 Assessment and Plan Assessment Anesthesia Assessment: Chart Reviewed Documented by User: Skye Anne MD 03/31/22 09:12 COUNT INCLUDES THE [facility] Active Problems Active Problems: All Active Problems (Updated 03/25/22 @ 14:49 by Seema Tejeda RN) Other bursal cyst, left ankle and foot (Acute) Other cyst of bone, left hand (Acute) Abscess (Acute) Alcohol abuse with withdrawal (Acute) Acute alcoholic hepatitis (Acute) Alcoholic ketoacidosis (Acute) Pancytopenia (Acute) Physical exam (Acute) Screening PSA (prostate specific antigen) (Acute) MDD (major depressive disorder), recurrent severe, without psychosis (Acute) Alcohol withdrawal (Acute) Acute alcoholic gastritis (Acute) Chest pain (Acute) Right hip pain (Acute) Abdominal pain (Acute) Alcoholism in remission (Acute) Recurrent moderate major depressive disorder with anxiety (Acute) Alcohol use disorder, severe, dependence (Acute) Obesity (BMI 30-39.9) (Acute) GERD without esophagitis (Acute) Mixed hyperlipidemia (Acute) Denies SEBASTIAN. States no ETOH since 12/31 Past Medical History Medical History Acute hepatitis Alcohol use disorder, severe, dependence Alcohol withdrawal Alcoholic ketoacidosis Anxiety with depression Benign essential hypertension Diabetes mellitus GERD without esophagitis History of alcoholic hepatitis HTN (hypertension) Insomnia Mixed hyperlipidemia Obesity (BMI 30-39.9) Recurrent moderate major depressive disorder with anxiety Family History Family History Father Advanced cirrhosis of liver Alcoholic cirrhosis Substance use disorder Mother Dementia Maternal Grandfather Substance use disorder Sister Substance use disorder Maternal Grandfather Colon cancer Prostate cancer Family history of problems with anesthesia: No Surgical History Surgical History H/O colonoscopy History of esophagogastroduodenoscopy (EGD) History of Problems with Anesthesia: No Social History Social History Household Members: Significant Other Household Members Other:: 2 Housing: House Do you presently have visiting nurse or other home services: No Alcohol intake: former Patient Tobacco Use Status: Former Tobacco user Tobacco use type: Cigarette Years Smoked: quit 10 years ago e-Cigarette/Vaping Use: Never Used Second Hand Smoke Exposure: No Substance Use Type: Marijuana Are you DNR?: No Advance Directives: Yes Advance Directives on File: Yes Advance Directives Date on File: 10/23/21 Recently lost weight without trying: No Nutrition Risks: No Nutritional Risk service: No Current occupational status: 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 Meds Allergies Allergy/AdvReac Type Severity Reaction Status Date / Time No Known Allergies Allergy Verified 03/19/22 13:31 [No Known Allergies*] Home Medications Medication Instructions Recorded Confirmed Last Taken Type labetalol 300 mg tablet 1 tab PO BID 12/11/21 03/31/22 03/30/22 History quetiapine 100 mg tablet 100 - 200 mg PO BEDTIME PRN anxiety 01/06/22 03/31/22 03/30/22 History paroxetine HCl 30 mg tablet 30 mg PO DAILY 02/24/22 03/31/22 03/30/22 History metformin 500 mg tablet 500 mg PO BID 03/19/22 03/31/22 03/30/22 History multivitamin 1 tab PO DAILY 03/19/22 03/31/22 03/30/22 History omeprazole 20 mg capsule,delayed 20 mg PO DAILY 03/19/22 03/31/22 03/30/22 History release Exam Height,Weight and Vital Signs: Height 5 ft 7 in Weight 95.254 kg Vital Signs Temp Pulse Resp BP Pulse Ox O2 Del Method 03/31/22 07:41 98 F 60 18 110/58 L 97 Room Air Pertinent Lab Results Pertinent Lab Results: Laboratory Tests 12/15/21 01/05/22 08:34 10:28 WBC 3.3 L Hgb 12.7 L Hct 36.4 L Plt Count 78 L Sodium 141 Potassium 4.0 Chloride 100 Carbon Dioxide 29 BUN 13 D Creatinine 0.92 Lab Results 03/31/22 03/31/22 Range/Units 07:39 07:41 WBC 5.7 (4.8-10.8) X10*3/uL RBC 4.41 L (4.60-5.80) X10*6/uL Hgb 13.5 L (14.0-18.0) g/dl Hct 38.1 L (42.0-52.0) % MCV 86.4 (80.0-98.0) fL MCH 30.6 (27.0-33.0) pg MCHC 35.4 (31.0-36.0) g/dl RDW 12.6 (11.0-16.0) % Plt Count 210 D (160-400) X10*3/uL MPV 9.5 (9.4-12.4) fL Absolute Nucleated RBC 0.000 (0.0-0.012) X10*3/uL Nucleated RBC % (auto) 0.0 (0.0-0.2) /100WBC POC Glucose 144 H (60-115) mg/dL Airway Mallampati Class: III TM Dist: >3cm Neck ROM: Full Loose/Missing/Broken Teeth: Yes (Broken tooth bottom right back) Heart: RRR Lungs: CTAB Assessment and Plan Assessment Anesthesia Assessment: Anesthesia Plan Discussed Final Anesthetic Review Family History of Problems with Anesthesia: No History of Problems with Anesthesia: No NPO: Yes ASA Class: III Final Preanesthetic Review: No Changes in Pt Med Stat, Meds/Allgs Chart Reviewed, Consent Obtained/Reviewed and Anes Risks/Benef Reviewed Patient Risk: Intermediate Procedure Risk: Low Assessment/Block/Sedation in SS: Assess/Block/Sedation-SS Anesthetic Plan Anesthetic Plan: MAC: Disposition: Standard PACU
[2022-03-31 07:41] VITALS: BP 110/58; PULSE 60; RESP 18; TEMP 36.6; O2SAT 97
[2022-03-31 07:42] LABS: Glucose, Whole Blood 144 mg/dL (60-115)
[2022-03-31 07:55] LABS: Hematocrit 38.1 % (42.0-52.0); Hemoglobin 13.5 g/dl (14.0-18.0); Mean Corpuscular HGB Conc 35.4 g/dl (31.0-36.0); Mean Corpuscular Hemoglobin 30.6 pg (27.0-33.0); Mean Corpuscular Volume 86.4 fL (80.0-98.0); Mean Platelet Volume 9.5 fL (9.4-12.4); Platelet Count 210 X10*3/uL (160-400); Red Blood Count 4.41 X10*6/uL (4.60-5.80); Red Cell Distribution Width 12.6 % (11.0-16.0); White Blood Count 5.7 X10*3/uL (4.8-10.8)
[2022-03-31] MEDS: Lactated Ringers 1,000 ML 100 ML IVCONT (07:58)
--- NOTE | 2022-03-31 09:08 | MHC.SHP ---
Pre-Procedural Eval Section A Date of Service: 03/31/22 The patient is an INPATIENT: No The History & Physical has been completed within 30 days and I have reviewed it.: Yes Section B Chief Complaint: Unspecified abdominal pain Allergies: Allergies Allergy/AdvReac Type Severity Reaction Status Date / Time No Known Allergies Allergy Verified 03/19/22 13:31 [No Known Allergies*] Plan Diagnosis/Plan: Unchanged I have reviewed the history and physical and performed a pertinent physical examination on my patient. No changes have occurred unless specified. Time Spent With Patient Time: Total time managing care of this patient today ____ minutes.
--- NOTE | 2022-03-31 09:09 | P.OP_ITS ---
Operative Note Operative Note Date of Service: 03/31/22 Narrative: Procedure: Esophagogastroduodenoscopy Endoscopist: Yudi Trinh MD Indication: Abdominal pain Anesthesia Provider: Siria Cano CRNA Anesthesia Type: MAC Instrument: [id number] ?? EGD Procedure:?? The procedure, indications, preparation and potential complications were reviewed with the patient, who indicated understanding and gave written informed consent to proceed. A physical exam was performed. The endoscope was introduced through the mouth, and advanced to the third part of duodenum. The mucosa was carefully examined on slow withdrawal of the endoscope. The patient tolerated the procedure well. There were no immediate complications.? ? EGD Findings:? * Esophagus:? Normal mucosa noted in the entire esophagus. The Z line was at 36. Lilly colored mucosa suspicious for Valles's esophagus was noted to extend up to 34 cm. C1M2. 4-quadrant cold forceps biopsies were taken every 1 cm from 36 cm to 34 cm. * Stomach:? Normal mucosa was noted in the stomach. A few polyps in the fundus were noted. The largest one was sampled with cold biopsy forceps. Random gastric biopsies were taken to rule out H Pylori infection. * Duodenum:? Prominent villi with whitish tips were noted in the entire examined duodenum. Biopsies were taken from duodenal bulb and second portion of the duodenum to rule out celiac sprue. ? EGD Impressions:? * 2 cm salmon-pink tongue extending above gastro-esophageal junction suspicious for Valles's esophagus (biopsy) * Normal stomach mucosa (biopsy) * Gastric polyps (biopsy) * ? Duodenal lymphangectasia (biopsy) ?? Recommendations:?? * Follow biopsy results. Our office will call or send a letter with results within 7-10 days. * Start/continue PPI therapy. * If H pylori +, patient will be prescribed eradication therapy followed by test of cure. * Avoid NSAIDs. Above has been reviewed with the patient. Relevant educational hand outs were provided at discharge.
[2022-03-31 09:12] VITALS: BP 110/59; PULSE 53; RESP 16; TEMP 36.1; O2SAT 98
[2022-03-31 09:27] VITALS: BP 101/56; PULSE 63; RESP 16; O2SAT 97
[2022-03-31 09:42] VITALS: BP 120/57; PULSE 54; RESP 16; O2SAT 95
== END 2022-03-31 10:21 | disposition home or self-care (01) ==
PROVIDERS: Nurse Practitioner; PCP Nurse Practitioner Family; Visit Provider Internal Medicine
PROC: 0DJ08ZZ Inspection of Upper Intestinal Tract, Via Natural or Artificial Opening Endoscopic (ICD-10-PCS; CPT 43235; principal; 2022-03-31 08:30)
DX: R10.13 Epigastric pain (principal); K22.70 Barrett's esophagus without dysplasia; K31.7 Polyp of stomach and duodenum; K21.9 Gastro-esophageal reflux disease without esophagitis; F10.21 Alcohol dependence, in remission; I10 Essential (primary) hypertension; E11.9 Type 2 diabetes mellitus without complications; E78.5 Hyperlipidemia, unspecified; G47.00 Insomnia, unspecified; E66.9 Obesity, unspecified; Z68.33 Body mass index [BMI] 33.0-33.9, adult; Z79.84 Long term (current) use of oral hypoglycemic drugs; Z79.899 Other long term (current) drug therapy; Z79.1 Long term (current) use of non-steroidal anti-inflammatories (NSAID); Z87.891 Personal history of nicotine dependence
CPT/HCPCS: 43239; 36415; 82947; 85027; 88305; 88342

== ENCOUNTER 2022-04-07 11:42 | Outpatient (REF) | payer OTHER, SELFPAY ==
[2022-04-07 13:50] LABS: MANUAL DIFF FLAG NO
[2022-04-07 13:59] LABS: Basophils Percent Auto 0.4 % (0-2); Eosinophils Absolute Auto 0.2 X10*3/uL (0.0-0.4); Eosinophils Percent Auto 2.4 % (0-4); Hematocrit 44.5 % (42.0-52.0); Hemoglobin 15.1 g/dl (14.0-18.0); Imm Gran Abs Auto 0.02 X10*3/uL (0.00-0.03); Imm Gran Pct Auto 0.3 % (0.0-0.4); Lymphocytes Absolute Auto 0.8 X10*3/uL (1.2-4.9); Lymphocytes Percent Auto 11.5 % (20-40); Mean Corpuscular HGB Conc 33.9 g/dl (31.0-36.0); Mean Corpuscular Hemoglobin 29.5 pg (27.0-33.0); Mean Corpuscular Volume 87.1 fL (80.0-98.0); Mean Platelet Volume 9.9 fL (9.4-12.4); Monocytes Absolute Auto 0.4 X10*3/uL (0.1-1.2); Monocytes Percent Auto 6.1 % (2-11); Neutrophils Absolute Auto 5.7 x10*3/uL (2.0-8.3); Neutrophils Percent Auto 79.3 % (45-73); Platelet Count 214 X10*3/uL (160-400); Red Blood Count 5.11 X10*6/uL (4.60-5.80); Red Cell Distribution Width 12.9 % (11.0-16.0); White Blood Count 7.2 X10*3/uL (4.8-10.8)
[2022-04-07 14:15] LABS: Alanine Aminotransferase 28 U/L (0-40); Albumin Level 4.9 g/dL (3.5-5.0); Alkaline Phosphatase 60 U/L (39-117); Anion Gap 16 (12-20); Aspartate Amino Transferase 25 U/L (5-37); Bilirubin Total 1.4 mg/dL (0.0-1.0); Blood Urea Nitrogen 18 mg/dL (9-16); Calcium 9.6 mg/dL (8.4-10.2); Carbon Dioxide 28 mmol/L (22-29); Chloride 100 mmol/L (96-108); Cholesterol 139 mg/dL; Estimated Glomerular Filt Rate > 60; Glucose Fasting 152 mg/dL (60-99); HDL Cholesterol 36 mg/dL; LDL Cholesterol Calculated 46 mg/dl; Potassium 3.9 mmol/L (3.3-5.1); Sodium 140 mmol/L (135-145); Total Protein 7.4 g/dL (6.5-8.0); Triglycerides 285 mg/dL
[2022-04-07 14:46] LABS: Folate 19.1 ng/mL (> or = 4.0); Vitamin B12 422 pg/mL (200-900)
== END 2022-04-07 11:43 | disposition home or self-care (01) ==
LOC: HO.HMGCLDS 11:42
PROVIDERS: PCP Nurse Practitioner Family; Visit Provider Nurse Practitioner Family
DX: K29.20 Alcoholic gastritis without bleeding (principal)
CPT/HCPCS: 36415; 80053; 80061; 82607; 82746; 85025

== ENCOUNTER 2022-06-06 07:03 | Inpatient (IN) | payer OTHER, SELFPAY ==
[2022-06-06 07:10] VITALS: BP 139/110; PULSE 107; RESP 18; TEMP 36.8; O2SAT 97; BMI 30.8
--- NOTE | 2022-06-06 07:22 | ED_ITS ---
HPI - Alcohol General Chief Complaint: ETOH/Substance Use Stated Complaint: Seeking detox Time Seen by Provider: 06/06/22 07:21 Source: patient Mode of arrival: ambulatory Limitations: no limitations History of Present Illness HPI narrative: Patients last drink was at 1:30am. States that he vomited last night and had coffee ground vomitus. Patient has been binging for one week, had been sober for 5 months. complaint: alcohol withdrawal Last drink: Hours (ago) Chronic alcohol use: Yes Previous visits for alcohol intoxication: Yes Recent trauma: No Associated symptoms: nausea and vomiting Related Data Home Medications Medication Instructions Recorded Confirmed quetiapine 100 mg tablet 200 mg PO BEDTIME PRN anxiety 01/06/22 06/06/22 multivitamin 1 tab PO DAILY 03/19/22 06/06/22 hydroxyzine pamoate 50 mg capsule 2 cap PO BEDTIME PRN insomnia 06/06/22 06/06/22 inulin 2 gram chewable tablet 6 g PO DAILY 06/06/22 06/06/22 (Fiber Gummies) paroxetine HCl 40 mg tablet 1 tab PO DAILY 06/06/22 06/06/22 rosuvastatin 20 mg tablet 20 mg PO BEDTIME 06/06/22 06/06/22 Previous Rx's Medication Instructions Recorded labetalol 300 mg tablet 300 mg PO BID 30 days #60 tabs 04/08/22 metformin 500 mg tablet 500 mg PO BID 30 days #60 tabs 05/31/22 primidone 50 mg tablet 50 mg PO BEDTIME #30 tabs 06/02/22 Allergies Allergy/AdvReac Type Severity Reaction Status Date / Time No Known Allergies Allergy Verified 05/20/22 11:44 [No Known Allergies*] Review of Systems Review of Systems: Yes all other systems are reviewed and are negative Constitutional: Comments: alcohol withdrawal Gastrointestinal: Comments: vomiting coffee grounds Psychiatric: Comments: anxious PMFSH Past Medical History Medical History Acute hepatitis Alcohol use disorder, severe, dependence Alcohol withdrawal Alcoholic ketoacidosis Anxiety with depression Benign essential hypertension Diabetes mellitus GERD without esophagitis History of alcoholic hepatitis HTN (hypertension) Insomnia Mixed hyperlipidemia Obesity (BMI 30-39.9) Recurrent moderate major depressive disorder with anxiety Surgical History H/O colonoscopy History of esophagogastroduodenoscopy (EGD) Family History Family History Father Advanced cirrhosis of liver Alcoholic cirrhosis Substance use disorder Mother Dementia Maternal Grandfather Substance use disorder Sister Substance use disorder Maternal Grandfather Colon cancer Prostate cancer Social History Social History Household Members: Significant Other Household Members Other:: 2 Housing: House Do you presently have visiting nurse or other home services: No Alcohol intake: unknown Patient Tobacco Use Status: Former Tobacco user Tobacco use type: Cigarette Years Smoked: quit 10 years ago Smoked in Last 30 Days: Yes e-Cigarette/Vaping Use: Never Used Second Hand Smoke Exposure: No Use of substances other than those prescribed or required for medical reasons: Unknown Substance Use Type: Marijuana Advance Directives: Yes Advance Directives on File: Yes Advance Directives Date on File: 10/23/21 Nutrition Risks: No Nutritional Risk service: No Current occupational status: 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 Physical Exam ED Vital Signs: Vital Signs - 24 hr 06/06/22 07:10 06/06/22 08:00 06/06/22 11:16 Temperature 98.2 F Pulse Rate 107 H 94 Respiratory Rate 18 18 23 H Blood Pressure 139/110 H 131/83 Pulse Oximetry 97 97 Oxygen Delivery Method Room Air Room Air BMI result Body Mass Index 30.8 Const Other: anxious rocking, looking older than stated age Nutritional Appearance: average body habitus Orientation/consciousness: oriented to person and patient oriented x3 Limitations: no limitations HENMT Head: Yes normal to inspection Ears: external ears normal General nose exam: Normal external nose present Mouth: Normal oral and palatal mucosa present and oropharynx normal Throat: Yes posterior oropharynx normal Eyes General: appearance normal, both eyes and all related structures Neck Neck: Yes normal visual inspection Chest Chest palpation & inspection: normal inspection of the chest Resp Auscultation: clear to auscultation bilaterally Cardio Jugular venous distension: no JVD Rate: regular rate Rhythm: regular rhythm Heart sounds: S1 normal heart sound present and S2 normal heart sound present GI Inspection: Yes normal to inspection Palpation (GI): Soft to palpation, nontender and No hepatosplenomegaly present Auscultation: normal bowel sounds Other: rectal brown stool heme negative General: Yes no CVA tenderness Back/Spine/Pelvis Back: no CVA tenderness Skin General skin exam: no rashes or lesions noted Neuro General: oriented to person and patient oriented x3 Cranial nerves: Yes CN's II-XII intact bilaterally Motor exam (neuro): 5/5 motor strength present throughout Extrem General: Yes normal to inspection Psych Appearance: grossly normal Course Reevaluation(s) Reevaluation #1: Despite multiple rounds of IV phenobarbital patient is still tachycardic and poppy phoretic, he will need to be admitted for alcohol withdrawal Time: 11:29 Reevaluation #2: I spent 40 minutes of critical care, with interventions, assessments, speaking to patient, consultants, and family. Time: 11:34 Medical Decision Making Differential Diagnosis Differential Diagnoses: The differential diagnosis associated with the presentation includes (alcohol intoxication, alcohol withdrawal) Admission/Observation Consideration of admission/observation: Escalation of care including admission/observation considered (with a history of multiple admissions for alcohol withdrawal admission was being considered upon arrival) Consult Healthcare Provider Management of the patient was discussed with: Hospitalist Lab Data MDM Lab Attestation statement: I reviewed the patient's lab results. 06/06/22 07:56 06/06/22 07:56 Labs: Lab Results 06/06/22 06/06/22 06/06/22 Range/Units 07:36 07:56 07:56 WBC 9.3 (4.8-10.8) X10*3/uL RBC 5.33 (4.60-5.80) X10*6/uL Hgb 15.6 (14.0-18.0) g/dl Hct 43.3 (42.0-52.0) % MCV 81.2 (80.0-98.0) fL MCH 29.3 (27.0-33.0) pg MCHC 36.0 (31.0-36.0) g/dl RDW 12.3 (11.0-16.0) % Plt Count 211 (160-400) X10*3/uL MPV 9.0 L (9.4-12.4) fL Immature Gran % (Auto) 0.3 (0.0-0.4) % Neut % (Auto) 53.9 (45-73) % Lymph % (Auto) 36.9 (20-40) % [place] % (Auto) 7.9 (2-11) % Eos % (Auto) 0.4 (0-4) % Baso % (Auto) 0.6 (0-2) % Lymph # (Auto) 3.4 (1.2-4.9) X10*3/uL [place] # (Auto) 0.7 (0.1-1.2) X10*3/uL Eos # (Auto) 0.0 (0.0-0.4) X10*3/uL Baso # (Auto) 0.1 (0.0-0.2) X10*3/uL Abs Immat Gran (auto) 0.03 (0.00-0.03) X10*3/uL Absolute Neuts (auto) 5.0 (2.0-8.3) x10*3/uL Absolute Nucleated RBC 0.000 (0.0-0.012) X10*3/uL Nucleated RBC % (auto) 0.0 (0.0-0.2) /100WBC PT (10.0-13.1) SEC INR (0.9-1.1) Sodium 140 (135-145) mmol/L Potassium 3.8 (3.3-5.1) mmol/L Chloride 95 L (96-108) mmol/L Carbon Dioxide 24 (22-29) mmol/L Anion Gap 25 H (12-20) BUN 18 H (9-16) mg/dL Creatinine 0.93 (0.5-1.4) mg/dL Estim Creat Clear Calc 96.8 Estimated GFR > 60 Random Glucose 193 H (60-115) mg/dL Calcium 8.8 D (8.4-10.2) mg/dL Magnesium 1.9 (1.6-2.6) mg/dL Total Bilirubin 0.9 (0.0-1.0) mg/dL AST 37 (5-37) U/L ALT 47 H (0-40) U/L Alkaline Phosphatase 62 (39-117) U/L Total Protein 7.6 (6.5-8.0) g/dL Albumin 4.8 (3.5-5.0) g/dL Ethyl Alcohol 175 mg/dL COVID-19 ([facility]) Negative (Negative) COVID-19 Clin Com See Note 06/06/22 06/06/22 Range/Units 07:56 12:05 WBC (4.8-10.8) X10*3/uL RBC (4.60-5.80) X10*6/uL Hgb (14.0-18.0) g/dl Hct (42.0-52.0) % MCV (80.0-98.0) fL MCH (27.0-33.0) pg MCHC (31.0-36.0) g/dl RDW (11.0-16.0) % Plt Count (160-400) X10*3/uL MPV (9.4-12.4) fL Immature Gran % (Auto) (0.0-0.4) % Neut % (Auto) (45-73) % Lymph % (Auto) (20-40) % [place] % (Auto) (2-11) % Eos % (Auto) (0-4) % Baso % (Auto) (0-2) % Lymph # (Auto) (1.2-4.9) X10*3/uL [place] # (Auto) (0.1-1.2) X10*3/uL Eos # (Auto) (0.0-0.4) X10*3/uL Baso # (Auto) (0.0-0.2) X10*3/uL Abs Immat Gran (auto) (0.00-0.03) X10*3/uL Absolute Neuts (auto) (2.0-8.3) x10*3/uL Absolute Nucleated RBC (0.0-0.012) X10*3/uL Nucleated RBC % (auto) (0.0-0.2) /100WBC PT 11.6 (10.0-13.1) SEC INR 1.0 (0.9-1.1) Sodium (135-145) mmol/L Potassium (3.3-5.1) mmol/L Chloride (96-108) mmol/L Carbon Dioxide (22-29) mmol/L Anion Gap (12-20) BUN (9-16) mg/dL Creatinine (0.5-1.4) mg/dL Estim Creat Clear Calc Estimated GFR Random Glucose (60-115) mg/dL Calcium (8.4-10.2) mg/dL Magnesium (1.6-2.6) mg/dL Total Bilirubin (0.0-1.0) mg/dL AST (5-37) U/L ALT (0-40) U/L Alkaline Phosphatase (39-117) U/L Total Protein (6.5-8.0) g/dL Albumin (3.5-5.0) g/dL Ethyl Alcohol mg/dL COVID-19 ([facility]) Negative (Negative) COVID-19 Clin Com See Note Independent Historian Clinical information obtained from an independent historian. History obtained from or confirmed by: Spouse Social Determinants Patient?s care significantly limited by Social Determinants of Health including: Alcoholism and drug addiction in family Medications Administered Generic Name Dose Route Start Last Admin Trade Name Freq PRN Reason Stop Dose Admin Enoxaparin Sodium 40 mg 06/06/22 14:00 06/06/22 14:51 Enoxaparin Sodium 40 Mg/0.4 Ml Syringe SUBCUT 40 mg Q24H MAILE Administration Folic Acid 1 mg 06/06/22 13:30 06/06/22 14:49 Folic Acid 1 Mg Tablet PO 06/09/22 13:29 1 mg DAILY MAILE Administration Lactated Ringer's 1,000 mls @ 100 mls/hr 06/06/22 13:30 06/06/22 14:52 Lr IVCONT 100 mls/hr .Q10H MAILE Administration Insulin Human Lispro 0 unit 06/06/22 16:30 06/06/22 17:16 Insulin Lispro 100 Unit/Ml 3 Ml Vial SUBCUT Not Given QIDACHS [facility] Protocol Ondansetron HCl 4 mg 06/06/22 13:11 06/06/22 17:15 Ondansetron Hcl 4 Mg/2 Ml Vial IVPUSH 4 mg Q8H PRN Administration Nausea and Vomiting Pantoprazole Sodium 40 mg 06/06/22 16:30 06/06/22 17:15 Pantoprazole Sodium 40 Mg/10 Ml Vial IVPUSH 40 mg BID@0630,1630 MAILE Administration Paroxetine HCl 40 mg 06/06/22 15:45 06/06/22 17:00 Paroxetine Hcl 40 Mg Tablet PO Not Given DAILY MAILE Phenobarbital Sodium 198 mg 06/06/22 15:00 06/06/22 14:50 Phenobarbital Sodium 130 Mg/Ml Vial Im Q3hx2 IM 06/06/22 18:01 198 mg Q3H MAILE Administration Protocol Sodium Chloride 3 ml 06/06/22 16:00 06/06/22 17:00 0.9 % Sodium Chloride Flush 3 Ml Syringe IVFLUSH Not Given QSHIFT MAILE Thiamine HCl 100 mg 06/06/22 13:30 06/06/22 14:49 Thiamine Hcl 100 Mg Tablet PO 06/09/22 13:29 100 mg DAILY MAILE Administration Discontinued Medications Generic Name Dose Route Start Last Admin Trade Name Silasq PRN Reason Stop Dose Admin Famotidine 20 mg 06/06/22 13:15 06/06/22 14:49 Famotidine 20 Mg Tablet PO 20 mg BID MAILE Administration Sodium Chloride 1,000 mls @ 999 mls/hr 06/06/22 07:30 06/06/22 12:35 Ns IVCONT 06/06/22 09:30 Infused .Q1H1M MAILE Infusion Ondansetron HCl 4 mg 06/06/22 07:26 06/06/22 08:04 Ondansetron Hcl 4 Mg/2 Ml Vial IVPUSH 06/06/22 07:27 4 mg ONCE ONE Administration Pantoprazole Sodium 40 mg 06/06/22 07:26 06/06/22 08:05 Pantoprazole Sodium 40 Mg/10 Ml Vial IVPUSH 06/06/22 07:27 40 mg ONCE ONE Administration Phenobarbital Sodium 65 mg 06/06/22 07:26 06/06/22 08:59 Phenobarbital Sodium 65 Mg/Ml Vial IVPUSH 06/06/22 07:27 Not Given ONCE ONE Phenobarbital Sodium 65 mg 06/06/22 08:15 06/06/22 08:10 Phenobarbital Sodium 130 Mg/Ml Vial IVPUSH 06/06/22 08:16 65 mg ONCE ONE Administration Phenobarbital Sodium 65 mg 06/06/22 09:15 06/06/22 09:16 Phenobarbital Sodium 130 Mg/Ml Vial IVPUSH 06/06/22 09:16 65 mg ONCE ONE Administration Phenobarbital Sodium 130 mg 06/06/22 12:00 06/06/22 12:27 Phenobarbital Sodium 130 Mg/Ml Im Once IM 06/06/22 12:01 130 mg ONCE ONE Administration Protocol Discharge Plan Discharge Clinical Impression: Alcohol abuse with withdrawal Patient Disposition: Admitted As Inpatient Interventions: [place]-Suicide Risk Severity Scale Last Done: 06/06/22 16:00
[2022-06-06 08:00] VITALS: RESP 18
[2022-06-06 08:02] LABS: MANUAL DIFF FLAG NO
[2022-06-06 08:02] LABS: COVID-19 Test Negative (Negative); IDNOW Serial# 16C4AD1C
[2022-06-06 08:03] LABS: Imm Gran Abs Auto 0.03 X10*3/uL (0.00-0.03); Imm Gran Pct Auto 0.3 % (0.0-0.4); PLT CLUMP 1; SCAN SMEAR FLAG 1
[2022-06-06 08:04] LABS: Basophils Absolute Auto 0.1 X10*3/uL (0.0-0.2); Basophils Percent Auto 0.6 % (0-2); Hemoglobin 15.6 g/dl (14.0-18.0); Lymphocytes Absolute Auto 3.4 X10*3/uL (1.2-4.9); Monocytes Percent Auto 7.9 % (2-11); Red Cell Distribution Width 12.3 % (11.0-16.0)
[2022-06-06] MEDS: ondansetron HCL 4 MG/2 ML VIAL IVPUSH ×2 (08:04→17:15)
[2022-06-06] MEDS: 0.9 % Sodium Chloride 1,000 ML 999 ML IVCONT ×2 (08:05→08:46)
[2022-06-06] MEDS: Pantoprazole Sodium 40 MG/10 ML VIAL IVPUSH ×2 (08:05→17:15)
--- NOTE | 2022-06-06 08:06 | PC.NURSE ---
contact made to pharmacy for Phenobarbitol. Will be sent down.
[2022-06-06 08:07] LABS: Prothrombin Time 11.6 SEC (10.0-13.1)
[2022-06-06 08:09] LABS: Eosinophils Percent Auto 0.4 % (0-4); Hematocrit 43.3 % (42.0-52.0); Lymphocytes Percent Auto 36.9 % (20-40); Mean Corpuscular Hemoglobin 29.3 pg (27.0-33.0); Mean Corpuscular Volume 81.2 fL (80.0-98.0); Monocytes Absolute Auto 0.7 X10*3/uL (0.1-1.2); Neutrophils Percent Auto 53.9 % (45-73); Red Blood Count 5.33 X10*6/uL (4.60-5.80); White Blood Count 9.3 X10*3/uL (4.8-10.8)
[2022-06-06] MEDS: PHENobarbitaL sodium 130 MG/ML VIAL 65 MG IVPUSH ×2 (08:10→09:16)
[2022-06-06 08:24] LABS: Alanine Aminotransferase 47 U/L (0-40); Albumin Level 4.8 g/dL (3.5-5.0); Alkaline Phosphatase 62 U/L (39-117); Anion Gap 25 (12-20); Aspartate Amino Transferase 37 U/L (5-37); Bilirubin Total 0.9 mg/dL (0.0-1.0); Blood Urea Nitrogen 18 mg/dL (9-16); Calcium 8.8 mg/dL (8.4-10.2); Carbon Dioxide 24 mmol/L (22-29); Chloride 95 mmol/L (96-108); Creatinine Clr Calc Pharmacy 96.8; Estimated Glomerular Filt Rate > 60; Glucose Random 193 mg/dL (60-115); Potassium 3.8 mmol/L (3.3-5.1); Sodium 140 mmol/L (135-145); Total Protein 7.6 g/dL (6.5-8.0)
[2022-06-06 08:30] LABS: Platelet Count 211 X10*3/uL (160-400)
[2022-06-06 09:54] LABS: Ethanol 175 mg/dL
[2022-06-06 11:16] VITALS: BP 131/83; PULSE 94; RESP 23; O2SAT 97
[2022-06-06 12:25] LABS: COVID-19 Test Negative (Negative); IDNOW Serial# 55D5AD1C
[2022-06-06] MEDS: PHENobarbitaL sodium 130 MG/ML IM ONCE IM (12:27)
--- NOTE | 2022-06-06 12:38 | P.HPHOSP_ITS ---
History of Present Illness Date of Service: 06/06/22 Attending physician on admission: Lolis Owusu Chief Complaint: Alcohol withdrawal Pt is a 56-year-old male with a PMH significant for?alcohol use disorder with previous withdrawal, insomnia, HTN, HLD, mood disorder, and imu-eswvulm-nykh ndent diabetes who presents to the ED in acute alcohol withdrawal. Pt has been binging for the past week on a lot of bourbon. Pt was previously sober for 5 months and doing well until a financial issue led to relapse. Pt has been experiencing anxiety, restlessness, vomiting, uncontrollable rocking back and forth. History of hallucinations from past withdrawals but currently denies any auditory visual hallucinations. Patient has not had a history of seizures. Patient also has abdominal pain from nausea and vomiting. Vomitus is described as being dark in color, though lead maintenance technician than coffee-grounds and of a liquid consistency. Complains of chronic upper left-sided back pain for the past few months, denies any trauma to the area. Denies chest pain/pressure, palpitations. No shortness of breath. Denies fever, chills. In the ED was tachycardic up to 107, tachypneic up to 23. Labs were largely unremarkable, ethyl alcohol of 175 at time of presentation. Pt was treated with phenobarbital, IVF, ondansetron. Pt will be admitted to the hospital to telemetry for treatment of further evaluation of alcohol withdrawal. Review of Systems Review of Systems: Mild tremors Restlessness, pacing back and forth Agitation, anxiety Abdominal pain, Nausea, vomiting with dark colored vomitus Denies chest pain/pressure, palpitations No shortness of breath No fever, chills Yes all other systems are reviewed and are negative [facility] Medical History Acute hepatitis Alcohol use disorder, severe, dependence Alcohol withdrawal Alcoholic ketoacidosis Anxiety with depression Benign essential hypertension Diabetes mellitus GERD without esophagitis History of alcoholic hepatitis HTN (hypertension) Insomnia Mixed hyperlipidemia Obesity (BMI 30-39.9) Recurrent moderate major depressive disorder with anxiety Family History Father Advanced cirrhosis of liver Alcoholic cirrhosis Substance use disorder Mother Dementia Maternal Grandfather Substance use disorder Sister Substance use disorder Maternal Grandfather Colon cancer Prostate cancer Surgical History H/O colonoscopy History of esophagogastroduodenoscopy (EGD) Social History Household Members: Significant Other Household Members Other:: 2 Housing: House Do you presently have visiting nurse or other home services: No Alcohol intake: former Patient Tobacco Use Status: Former Tobacco user Tobacco use type: Cigarette Years Smoked: quit 10 years ago e-Cigarette/Vaping Use: Never Used Second Hand Smoke Exposure: No Substance Use Type: Marijuana Advance Directives: Yes Advance Directives on File: Yes Advance Directives Date on File: 10/23/21 service: No Current occupational status: 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 Meds Allergies Allergy/AdvReac Type Severity Reaction Status Date / Time No Known Allergies Allergy Verified 05/20/22 11:44 [No Known Allergies*] Active Medications: Current Medications Pharmacy Consult (Consult Rx Etoh Phenob Im/Po) 1 each MISCELLANE ONCE PRN; Protocol PRN Reason: Consult order Pharmacy Consult (Consult Rx Perform Med Rec) 1 each MISCELLANE ONCE PRN PRN Reason: Consult order Phenobarbital (Phenobarbital 15 Mg Tablet) 45 mg PO BID MAILE; Protocol Stop: 06/08/22 21:01 Phenobarbital (Phenobarbital 15 Mg Tablet) 15 mg PO BID MAILE; Protocol Stop: 06/10/22 21:01 Phenobarbital (Phenobarbital 15 Mg Tablet) 15 mg PO DAILY MAILE; Protocol Stop: 06/12/22 09:01 Phenobarbital Sodium (Phenobarbital Sodium 130 Mg/Ml Vial Im Q3hx2) 198 mg IM Q3H MAILE; Protocol Stop: 06/06/22 18:01 Home Medications Medication Instructions Recorded Confirmed Last Taken Type quetiapine 100 mg tablet 100 - 200 mg PO BEDTIME PRN anxiety 01/06/22 05/20/22 03/30/22 History paroxetine HCl 30 mg tablet 30 mg PO DAILY 02/24/22 05/20/22 03/30/22 History multivitamin 1 tab PO DAILY 03/19/22 05/20/22 03/30/22 History omeprazole 20 mg capsule,delayed 20 mg PO DAILY 03/19/22 05/20/2203/30/22 History release Physical Exam Vital Signs and Narrative: Vital Signs: Last Vital Signs Temp 98.2 F 06/06/22 07:10 Pulse 94 06/06/22 11:16 Resp 23 H 06/06/22 11:16 BP 131/83 06/06/22 11:16 Pulse Ox 97 06/06/22 11:16 O2 Del Method 06/06/22 11:16 BMI result Body Mass Index 30.8 Constitutional: Pt seen rocking back and forth on end of bed, agitated, in no acute distress. Mental Status: Oriented to person, place and time. Eyes: Pupils are equal, round, and reactive to light. Ear, Nose, and Throat: Oropharynx clear, mucous membranes dry. Ears and nose without deformities. Trachea midline. Respiratory: Clear to auscultation bilaterally. No wheezing, rales, or rhonchi. Cardiovascular: S1, S2 regular. No murmurs, rubs, or gallops. Gastrointestinal: Abdomen soft, non-tender, non-distended. Normal bowel sounds. Neurologic: Cranial nerves II-XII are grossly intact. No focal neurological deficits. Moves all extremities spontaneously. Back: Mild tenderness to upper left back, lateral aspect. No lesions or ecchymosis noted. Skin: No rashes or lesions noted. Musculoskeletal: No cyanosis or clubbing. Extremities: No edema. Psychiatric: Normal mood and affect. Results Labs 06/06/22 07:56 06/06/22 07:56 Labs: Laboratory Results - last 24 hr 06/06/22 06/06/22 06/06/22 07:36 07:56 07:56 MCV 81.2 MCH 29.3 MCHC 36.0 RDW 12.3 Plt Count 211 MPV 9.0 L Immature Gran % (Auto) 0.3 Neut % (Auto) 53.9 Lymph % (Auto) 36.9 [place] % (Auto) 7.9 Eos % (Auto) 0.4 Baso % (Auto) 0.6 Lymph # (Auto) 3.4 [place] # (Auto) 0.7 Eos # (Auto) 0.0 Baso # (Auto) 0.1 Abs Immat Gran (auto) 0.03 Absolute Neuts (auto) 5.0 Absolute Nucleated RBC 0.000 Nucleated RBC % (auto) 0.0 PT INR Anion Gap 25 H Estim Creat Clear Calc 96.8 Estimated GFR > 60 Random Glucose 193 H Calcium 8.8 D Total Bilirubin 0.9 AST 37 ALT 47 H Alkaline Phosphatase 62 Total Protein 7.6 Albumin 4.8 Ethyl Alcohol 175 COVID-19 ([facility]) Negative COVID-19 Clin Com See Note 06/06/22 06/06/22 07:56 12:05 MCV MCH MCHC RDW Plt Count MPV Immature Gran % (Auto) Neut % (Auto) Lymph % (Auto) [place] % (Auto) Eos % (Auto) Baso % (Auto) Lymph # (Auto) [place] # (Auto) Eos # (Auto) Baso # (Auto) Abs Immat Gran (auto) Absolute Neuts (auto) Absolute Nucleated RBC Nucleated RBC % (auto) PT 11.6 INR 1.0 Anion Gap Estim Creat Clear Calc Estimated GFR Random Glucose Calcium Total Bilirubin AST ALT Alkaline Phosphatase Total Protein Albumin Ethyl Alcohol COVID-19 ([facility]) Negative COVID-19 Clin Com See Note Assessment and Plan (1) Alcohol abuse with withdrawal: Status: Acute Plan Pt is a 56-year-old male with a PMH significant for?alcohol use disorder with previous withdrawal, insomnia, HTN, HLD, mood disorder, and amd-bgnmbqj-nnrmhayel diabetes who presents to the ED in acute alcohol withdrawal. Pt will be admitted to the hospital to telemetry for treatment of further evaluation of alcohol withdrawal. Alcohol withdrawal Patient rocking back and forth and bed, minor tremors, no hallucinations Received IVF, ondansetron, phenobarb, pantoprazole in ED Continue phenobarb protocol Daily multivitamin, folic acid, vitamin, famotidine IVF: Lactated Ringers Follow lytes, Mag, CBC Addiction medicine consult CIWA scale Monitor on telemetry Dark vomitus Patient has had dark colored vomitus, though described as lead maintenance technician than coffee- grounds and of a thin consistency H&H stable at 15.6/43.3 Repeat CBC tonight, again in the morning Upper left lateral back pain Patient complains of chronic upper left back pain, worse with coughing Follow up outpatient Ucs-kllxnqb-csyaksliy diabetes Hold metformin SSI HTN Continue home meds HLD Continue statin Mood disorder Continue home meds Full Code Attending:?Dr. Owusu DVT Prophylaxis: Lovenox Pt will require a hospitalization of at least two nights for treatment of?acute alcohol withdrawal. Time Spent With Patient Time: Total time managing care of this patient today ____ minutes. Quality Stroke Does the patient have a stroke diagnosis?: No VTE Prior VTE?: No VTE Risk Level:: Medical - moderate - high VTE Device Contraindication: Treatment Not Indicated VTE Drug Contraindication: N/A - Med Ordered
[2022-06-06 13:26] VITALS: BP 159/90; PULSE 99; RESP 13; TEMP 36.7
[2022-06-06 13:43] LABS: Magnesium 1.9 mg/dL (1.6-2.6)
--- NOTE | 2022-06-06 13:46 | MHC.RECOVSUP ---
? Reason for consult: recovery Support o Current location: ED17 o Identified substance use concern: AUD? - Withdrawal - Seeking ATS (detox) - Support ? ?Intervention: o ATS bed search started/completed/in process o MAT started or to be started o Community resources provided o Harm reduction discussion ? Plan: o Referral to [facility] o Follow up tomorrow ? ? Additional information:?Patient consultation with the care team prior to entry. assistant women's soccer coach met with pt to discuss detox and/or further treatment. Pt. was seeking detox, CSS and out patient treatment along with a MAT followed by conditioning coach services through [facility]. Bed search was started and referral was sent to [facility]. Medical team updated conditioning coach that pt. was being admitted at this time. A follow up tomorrow with the recovery team is needed. Recovery support was given along with community services and harm reduction strategies.
[2022-06-06] MEDS: Thiamine HCL 100 MG TABLET PO (14:49)
[2022-06-06] MEDS: Famotidine 20 MG TABLET PO (14:49)
[2022-06-06] MEDS: Folic Acid 1 MG TABLET PO (14:49)
[2022-06-06] MEDS: PHENobarbitaL sodium 130 MG/ML VIAL IM Q3Hx2 198 MG IM ×2 (14:50→18:39)
[2022-06-06] MEDS: Enoxaparin Sodium 40 MG/0.4 ML SYRINGE SUBCUT (14:51)
[2022-06-06] MEDS: Lactated Ringers 1,000 ML 100 ML IVCONT (14:52)
--- NOTE | 2022-06-06 15:08 | PM.EVENT ---
Event Note Date of Service: 06/06/22 Event Note: This patient is seen and examined with APC. ?56-year-old male with a PMH significant for?alcohol use disorder with previous withdrawal, insomnia, HTN, HLD, mood disorder, and iiu-peqsnlv-ipzjapnrj diabetes who presents to the ED in acute alcohol withdrawal. Patient said that previously he was drinking lot of beer but this time his tried bourbon-is having difficulty quitting alcohol. Seems very anxious and shaky Initially had the episode of vomiting-? Question of coffee-ground but unclear if it was really coffee-ground. Lab reviewed: CBC seems stable, BMP mild metabolic acidosis, mild transaminitis inr normal Physical exam and assessment and plan coordinated in APCs note, Agree with the plan in addition: 1. Alcohol withdrawals: Continue hydration, phenobarb protocol, thiamine folic acid. Mild transaminitis possibly related to alcohol use. 2. Mild metabolic acidosis probably related to alcohol get acidosis/starvation ketosis. Add antiemetics, hydration, monitor closely BMP. 3. Question of coffee-ground: In the patient is not very clear about it. Continue hydration, ppi, will check CBC in the evening. If patient has new episode of vomiting or bleeding or H&H significantly trend down than will consider GI evaluation. dvt prophylax: scd,?coffee-ground: Time Spent With Patient Time: Total time managing care of this patient today ____ minutes.
--- NOTE | 2022-06-06 15:22 | PHA.MEDREC ---
Pharmacy Consult ? Medication Reconciliation Pharmacy has completed the medication reconciliation. Patient reports no longer taking naltrexone because it ruined his sex drive . Knows they should still be on it, but would rather want an alternative because of the aforementioned adverse effect.
[2022-06-06 16:46] LABS: Glucose, Whole Blood 151 mg/dL (60-115)
[2022-06-06 19:31] VITALS: BP 144/93; PULSE 92; RESP 9; TEMP 36.9; O2SAT 98
[2022-06-06 20:18] LABS: Hematocrit 38.1 % (42.0-52.0); Hemoglobin 13.7 g/dl (14.0-18.0); Mean Corpuscular Hemoglobin 30.4 pg (27.0-33.0); Mean Corpuscular Volume 84.5 fL (80.0-98.0); Mean Platelet Volume 9.1 fL (9.4-12.4); Platelet Count 173 X10*3/uL (160-400); Red Blood Count 4.51 X10*6/uL (4.60-5.80); Red Cell Distribution Width 12.3 % (11.0-16.0); White Blood Count 8.7 X10*3/uL (4.8-10.8)
[2022-06-06 20:27] LABS: Anion Gap 19 (12-20); Blood Urea Nitrogen 17 mg/dL (9-16); Calcium 8.3 mg/dL (8.4-10.2); Carbon Dioxide 28 mmol/L (22-29); Chloride 98 mmol/L (96-108); Creatinine Clr Calc Pharmacy 96.8; Estimated Glomerular Filt Rate > 60; Glucose Random 157 mg/dL (60-115); Potassium 4.1 mmol/L (3.3-5.1); Sodium 141 mmol/L (135-145)
[2022-06-06 20:29] LABS: Glucose, Whole Blood 187 mg/dL (60-115)
[2022-06-06] MEDS: Labetalol HCL 100 MG TABLET 300 MG PO (20:30)
[2022-06-06] MEDS: Atorvastatin Calcium 80 MG TABLET PO (20:31)
[2022-06-06] MEDS: Insulin Lispro 100 UNIT/ML 3 ML VIAL SUBCUT (20:31)
--- NOTE | 2022-06-06 20:36 | PC.NURSE ---
This nurse took over at 19:00 Pt is on seizures precautions due to CIWA 20. Pt has LR running as 100ml. Pt meds were given as order. Pt has V/S satble. Pt is a/o x4. IV on his LAC. Pt has urinal at bedside and 2 can of soda. PT is on continuos hospital monitor and it shows sinus tachy. will continue to monitor.
[2022-06-06] MEDS: QUEtiapine Fumarate 200 MG TABLET PO (21:22)
--- NOTE | 2022-06-06 21:23 | PC.NURSE ---
Pt's V/S remains stable, pt denies pain and this nurse has given hi seroquel due to severe anxiety.
[2022-06-06 22:25] VITALS: BP 138/87; PULSE 76; RESP 19; TEMP 36.3; O2SAT 95
--- NOTE | 2022-06-06 23:00 | PC.NURSE ---
Called nurse to nurse report spoke to Nurse Flannery
[2022-06-06 23:59] VITALS: BMI 30.5
[2022-06-07] VITALS (7 sets, daily range): BP systolic 131–143; BP diastolic 71–88; PULSE 67–79; RESP 15–20; TEMP 36.4–36.8; O2SAT 95–97
[2022-06-07] MEDS: hydrOXYzine HCL 50 MG TABLET 100 MG PO (00:23)
[2022-06-07] MEDS: PHENobarbitaL sodium 130 MG/ML VIAL IM (00:23)
[2022-06-07] MEDS: diphenhydrAMINE HCL 25 MG CAPSULE PO (01:12)
[2022-06-07] MEDS: Lactated Ringers 1,000 ML 100 ML IVCONT ×3 (01:20→16:58)
[2022-06-07] MEDS: 0.9 % Sodium Chloride Flush 3 ML SYRINGE IVFLUSH (01:20)
[2022-06-07] MEDS: Pantoprazole Sodium 40 MG/10 ML VIAL IVPUSH ×2 (06:13→16:58)
[2022-06-07 07:22] LABS: Hematocrit 34.7 % (42.0-52.0); Hemoglobin 12.4 g/dl (14.0-18.0); Mean Corpuscular HGB Conc 35.7 g/dl (31.0-36.0); Mean Corpuscular Hemoglobin 30.2 pg (27.0-33.0); Mean Corpuscular Volume 84.6 fL (80.0-98.0); Mean Platelet Volume 9.2 fL (9.4-12.4); Platelet Count 122 X10*3/uL (160-400)
[2022-06-07 07:41] LABS: Blood Urea Nitrogen 18 mg/dL (9-16); Creatinine Clr Calc Pharmacy 94.3; Estimated Glomerular Filt Rate > 60; Glucose Random 174 mg/dL (60-115); Magnesium 1.7 mg/dL (1.6-2.6)
[2022-06-07 07:50] LABS: Anion Gap 15 (12-20); Carbon Dioxide 28 mmol/L (22-29); Chloride 97 mmol/L (96-108); Potassium 3.2 mmol/L (3.3-5.1); Sodium 137 mmol/L (135-145)
[2022-06-07] MEDS: Folic Acid 1 MG TABLET PO (08:17)
[2022-06-07] MEDS: Insulin Lispro 100 UNIT/ML 3 ML VIAL SUBCUT ×4 (08:17→21:07)
[2022-06-07] MEDS: PHENobarbitaL 15 MG TABLET 45 MG PO ×2 (08:17→21:06)
[2022-06-07] MEDS: Labetalol HCL 100 MG TABLET 300 MG PO ×2 (08:17→21:06)
[2022-06-07] MEDS: PARoxetine HCL 40 MG TABLET PO (08:17)
[2022-06-07] MEDS: Multivitamin TABLET 1 TAB PO (08:17)
[2022-06-07] MEDS: Thiamine HCL 100 MG TABLET PO (08:17)
[2022-06-07 08:19] LABS: Glucose, Whole Blood 196 mg/dL (60-115)
--- NOTE | 2022-06-07 09:12 | MHC.CM.PN ---
CM MET WITH PT AT BEDSIDE. PT LIVES WITH GIRLFRIEND AND COUSIN IN A [facility]. INDEPENDENT AT BASELINE. PT HAS A THERAPIST AND PSYCHIATRIST IN THE COMMUNITY. + HCP, COPY REQUESTED. + COVID VAX X3. PCP THERESA MIRELES AT [facility]. DP: HOME VS INPATIENT DETOX, FAMILY TO TRANSPORT AT [place]. CM WILL CONTINUE TO FOLLOW.
[2022-06-07] MEDS: Potassium Chloride Packet 20 MEQ PACKET PO (09:20)
[2022-06-07 11:01] LABS: Glucose, Whole Blood 283 mg/dL (60-115)
[2022-06-07] MEDS: QUEtiapine Fumarate 25 MG TABLET PO (11:12)
[2022-06-07] MEDS: PHENobarbitaL sodium 130 MG/ML VIAL 65 MG IM (11:12)
--- NOTE | 2022-06-07 12:07 | P.PNIM_ITS ---
Subjective Subjective Date of Service: 06/07/22 Interval History: ?Alcohol withdrawal, Mild metabolic acidosis,? coffee ground Review of Systems Patient denies any vomiting today, eating better. Still seems very anxious and tremulous. No fever or chills. Physical Exam Vital Signs: Vital Signs: Last Vital Signs Temp 98.1 F 06/07/22 08:00 Pulse 73 06/07/22 08:00 Resp 18 06/07/22 08:00 BP 133/71 06/07/22 08:00 Pulse Ox 96 06/07/22 08:00 O2 Del Method 06/07/22 08:00 BMI result Body Mass Index 30.5 Appearance: Alert.? Oriented X3.? anxious and tramulous. cvs: rrr, [id number] . res: clear to auscultation ,no rhonchii or wheezing abd: no rebound or guarding ,nt, bs present. ext pulses present , no cyanosis . neuro: axo3 , nonfocal. Objective Data Active Medications Acetaminophen (Acetaminophen 325 Mg Tablet) 650 mg PO Q6H PRN PRN Reason: Pain, Mild (Pain Scale 1-3) Atorvastatin Calcium (Atorvastatin Calcium 80 Mg Tablet) 80 mg PO BEDTIME [facility]ILE Last Admin: 06/06/22 20:31 Dose: 80 mg Documented By: KALE Dextrose (Dextrose 50 % 25 Gm/50 Ml Syringe) 25 gm IVPUSH Q15M PRN; Protocol PRN Reason: per Hypoglycemia Standing Ord. Docusate Sodium (Docusate Sodium 100 Mg Capsule) 100 mg PO DAILY PRN PRN Reason: Constipation Enoxaparin Sodium (Enoxaparin Sodium 40 Mg/0.4 Ml Syringe) 40 mg SUBCUT Q24H [facility] Last Admin: 06/06/22 14:51 Dose: 40 mg Documented By: CARLO Folic Acid (Folic Acid 1 Mg Tablet) 1 mg PO DAILY [facility] Stop: 06/09/22 13:29 Last Admin: 06/07/22 08:17 Dose: 1 mg Documented By: ANTHONY Glucose (Glucose Gel 15 Gm Gel..Gram.) 15 gm PO Q15M PRN; Protocol PRN Reason: per Hypoglycemia Standing Ord. Hydroxyzine HCl (Hydroxyzine Hcl 50 Mg Tablet) 100 mg PO BEDTIME PRN PRN Reason: insomnia Last Admin: 06/07/22 00:23 Dose: 100 mg Documented By: SANJAY Lactated Ringer's (Lr) 1,000 mls @ 100 mls/hr IVCONT .Q10H [facility] Last Admin: 06/07/22 08:15 Dose: 100 mls/hr Documented By: ANTHONY Insulin Human Lispro (Insulin Lispro 100 Unit/Ml 3 Ml Vial) 0 unit SUBCUT QIDACHS [facility]; Protocol Last Admin: 06/07/22 11:12 Dose: 6 unit Documented By: ANTHONY Labetalol HCl (Labetalol Hcl 100 Mg Tablet) 300 mg PO BID [facility] Last Admin: 06/07/22 08:17 Dose: 300 mg Documented By: ANTHONY Magnesium Oxide (Magnesium Oxide 400 Mg Tablet) [facility] Multivitamins/Vitamin C (Multivitamin Tablet) 1 tab PO DAILY [facility] Last Admin: 06/07/22 08:17 Dose: 1 tab Documented By: ANTHONY Ondansetron HCl (Ondansetron Hcl 4 Mg/2 Ml Vial) 4 mg IVPUSH Q8H PRN PRN Reason: Nausea and Vomiting Last Admin: 06/06/22 17:15 Dose: 4 mg Documented By: CARLO Pantoprazole Sodium (Pantoprazole Sodium 40 Mg/10 Ml Vial) 40 mg IVPUSH BI D@0630,1630 [facility] Last Admin: 06/07/22 06:13 Dose: 40 mg Documented By: SANJAY Paroxetine HCl (Paroxetine Hcl 40 Mg Tablet) 40 mg PO DAILY [facility] Last Admin: 06/07/22 08:17 Dose: 40 mg Documented By: ANTHONY Pharmacy Consult (Consult Rx Etoh Phenob Im/Po) 1 each MISCELLANE ONCE PRN; Protocol PRN Reason: Consult order Pharmacy Consult (Consult Rx Perform Med Rec) 1 each MISCELLANE ONCE PRN PRN Reason: Consult order Phenobarbital (Phenobarbital 15 Mg Tablet) 45 mg PO BID [facility]; Protocol Stop: 06/08/22 21:01 Last Admin: 06/07/22 08:17 Dose: 45 mg Documented By: ANTHONY Phenobarbital (Phenobarbital 15 Mg Tablet) 15 mg PO BID [facility]; Protocol Stop: 06/10/22 21:01 Phenobarbital (Phenobarbital 15 Mg Tablet) 15 mg PO DAILY [facility]; Protocol Stop: 06/12/22 09:01 Quetiapine Fumarate (Quetiapine Fumarate 200 Mg Tablet) 200 mg PO BEDTIME PRN PRN Reason: anxiety Last Admin: 06/06/22 21:22 Dose: 200 mg Documented By: KALE Sodium Chloride (0.9 % Sodium Chloride Flush 3 Ml Syringe) 3 ml IVFLUSH QSHIFT [facility] Last Admin: 06/07/22 08:18 Dose: Not Given Documented By: ANTHONY Non-Admin Reason: IV Running Thiamine HCl (Thiamine Hcl 100 Mg Tablet) 100 mg PO DAILY [facility] Stop: 06/09/22 13:29 Last Admin: 06/07/22 08:17 Dose: 100 mg Documented By: ANTHONY Labs 06/07/22 06:56 06/07/22 06:56 Labs: Laboratory Results - last 24 hr 06/06/22 06/06/22 06/06/22 07:56 12:05 16:42 MCV MCH MCHC RDW Plt Count MPV Absolute Nucleated RBC Nucleated RBC % (auto) Anion Gap Estim Creat Clear Calc Estimated GFR POC Glucose 151 H Random Glucose Calcium Magnesium 1.9 COVID-19 ([facility]) Negative COVID-19 Clin Com See Note 06/06/22 06/06/22 06/06/22 19:54 19:54 20:24 MCV 84.5 MCH 30.4 MCHC 36.0 RDW 12.3 Plt Count 173 MPV 9.1 L Absolute Nucleated RBC 0.000 Nucleated RBC % (auto) 0.0 Anion Gap 19 Estim Creat Clear Calc 96.8 Estimated GFR > 60 POC Glucose 187 H Random Glucose 157 H Calcium 8.3 L Magnesium COVID-19 ([facility]) COVID-19 Clin Com 06/07/22 06/07/22 06/07/22 06:56 06:56 08:08 MCV 84.6 MCH 30.2 MCHC 35.7 RDW 12.0 Plt Count 122 L D MPV 9.2 L Absolute Nucleated RBC 0.000 Nucleated RBC % (auto) 0.0 Anion Gap 15 Estim Creat Clear Calc 94.3 Estimated GFR > 60 POC Glucose 196 H Random Glucose 174 H Calcium 8.0 L Magnesium 1.7 COVID-19 ([facility]) COVID-19 Clin Com 06/07/22 10:51 MCV MCH MCHC RDW Plt Count MPV Absolute Nucleated RBC Nucleated RBC % (auto) Anion Gap Estim Creat Clear Calc Estimated GFR POC Glucose 283 H Random Glucose Calcium Magnesium COVID-19 ([facility]) COVID-19 Clin Com Assessment and Plan (1) Alcohol abuse with withdrawal: Status: Acute (2) Coffee ground emesis: Status: Acute Plan 56-year-old male with a PMH significant for?alcohol use disorder with previous withdrawal, insomnia, HTN, HLD, mood disorder, and mih-tpjydpi-qoksnbcqv diabetes who presents to the ED in acute alcohol withdrawal. Pt will be admitted to the hospital to telemetry for treatment of further evaluation of alcohol withdrawal. Alcohol withdrawal CIWA scale-6 this morning still anxious and tremulous Patient rocking back and forth and bed, minor tremors, no hallucinations Received IVF, ondansetron, phenobarb, pantoprazole in ED Continue phenobarb protocol mtabolic acisosis -starvation/alcohholic ketoais resolved with hydration. Daily multivitamin, folic acid, vitamin, famotidine,Lactated Ringers, added extra dose of phenobarb. Follow lytes, Mag, CBC Addiction medicine consult Monitor on telemetry Dark vomitus Patient has had dark colored vomitus, though described as coin machine supervisor than coffee-grounds and of a thin consistency H&H stable at around 12.4 /34.7 no new episodes,coninue ppi if new episodes -will consider Gi eval. Upper left lateral back pain Patient complains of chronic upper left back pain, worse with coughing Follow up outpatient Kpk-histiuo-tfvdctzhi diabetes Hold metformin SSI HTN Continue home meds HLD Continue statin Mood disorder Continue home meds hypokalemia : repleted moniter bmp DVT Prophylaxis: Lovenox inpatient need:treatment of?acute alcohol withdraw-phenobarbital, CIWA monitoring and electrolyte monitoring. Time Spent With Patient Time: Total time managing care of this patient today ____ minutes. Quality Stroke Does the patient have a stroke diagnosis?: No VTE Prior VTE?: No VTE Risk Level:: Medical - moderate - high VTE Device Contraindication: Treatment Not Indicated VTE Drug Contraindication: N/A - Med Ordered
[2022-06-07 16:34] LABS: Glucose, Whole Blood 199 mg/dL (60-115)
[2022-06-07] MEDS: Magnesium Oxide 400 MG TABLET PO (17:00)
[2022-06-07] MEDS: Acetaminophen 325 MG TABLET 650 MG PO (17:27)
[2022-06-07 20:43] LABS: Glucose, Whole Blood 260 mg/dL (60-115)
[2022-06-07] MEDS: Atorvastatin Calcium 80 MG TABLET PO (21:06)
[2022-06-07] MEDS: QUEtiapine Fumarate 200 MG TABLET PO (21:17)
[2022-06-08] MEDS: Lactated Ringers 1,000 ML 100 ML IVCONT ×2 (02:51→11:58)
[2022-06-08 03:45] VITALS: BP 155/80; PULSE 61; RESP 16; TEMP 37.1; O2SAT 95
[2022-06-08] MEDS: Pantoprazole Sodium 40 MG/10 ML VIAL IVPUSH ×2 (05:58→16:04)
[2022-06-08 07:17] VITALS: BP 138/79; PULSE 66; RESP 20; TEMP 36.3; O2SAT 96
[2022-06-08 07:23] LABS: Glucose, Whole Blood 180 mg/dL (60-115)
[2022-06-08 07:50] LABS: Hematocrit 32.7 % (42.0-52.0); Hemoglobin 11.8 g/dl (14.0-18.0); Mean Corpuscular HGB Conc 36.1 g/dl (31.0-36.0); Mean Corpuscular Hemoglobin 29.7 pg (27.0-33.0); Mean Corpuscular Volume 82.4 fL (80.0-98.0); Red Blood Count 3.97 X10*6/uL (4.60-5.80); Red Cell Distribution Width 11.8 % (11.0-16.0); White Blood Count 3.7 X10*3/uL (4.8-10.8)
[2022-06-08 07:51] LABS: Platelet Count 99 X10*3/uL (160-400)
[2022-06-08] MEDS: Insulin Lispro 100 UNIT/ML 3 ML VIAL SUBCUT ×4 (07:56→20:40)
[2022-06-08] MEDS: Thiamine HCL 100 MG TABLET PO (07:57)
[2022-06-08] MEDS: Labetalol HCL 100 MG TABLET 300 MG PO ×2 (07:57→20:41)
[2022-06-08] MEDS: Folic Acid 1 MG TABLET PO (07:57)
[2022-06-08] MEDS: Magnesium Oxide 400 MG TABLET PO ×2 (07:58→16:58)
[2022-06-08] MEDS: PHENobarbitaL 15 MG TABLET 45 MG PO ×2 (07:58→20:41)
[2022-06-08] MEDS: PARoxetine HCL 40 MG TABLET PO (07:58)
[2022-06-08] MEDS: Multivitamin TABLET 1 TAB PO (07:58)
[2022-06-08 07:59] LABS: Alanine Aminotransferase 34 U/L (0-40); Albumin Level 3.7 g/dL (3.5-5.0); Alkaline Phosphatase 53 U/L (39-117); Anion Gap 12 (12-20); Aspartate Amino Transferase 40 U/L (5-37); Bilirubin Direct 0.3 mg/dL (0.0-0.5); Blood Urea Nitrogen 11 mg/dL (9-16); Calcium 7.9 mg/dL (8.4-10.2); Carbon Dioxide 31 mmol/L (22-29); Chloride 103 mmol/L (96-108); Creatinine Clr Calc Pharmacy 97.4; Estimated Glomerular Filt Rate > 60; Glucose Random 173 mg/dL (60-115); Potassium 3.8 mmol/L (3.3-5.1); Sodium 142 mmol/L (135-145); Total Protein 5.7 g/dL (6.5-8.0)
[2022-06-08 08:54] LABS: Magnesium 1.6 mg/dL (1.6-2.6)
--- NOTE | 2022-06-08 10:53 | P.PNIM_ITS ---
Subjective Subjective Date of Service: 06/08/22 Interval History: anxiety/tremors improved c/o sexual side effects of naltrexone Review of Systems Review of Systems: Yes all other systems are reviewed and are negative Physical Exam Vital Signs: Vital Signs: Last Vital Signs Temp 97.3 F 06/08/22 07:17 Pulse 66 06/08/22 07:17 Resp 20 06/08/22 07:17 BP 138/79 06/08/22 07:17 Pulse Ox 96 06/08/22 07:17 O2 Del Method 06/08/22 07:17 BMI result Body Mass Index 30.5 Const: Other: Gen: in no acute distress HEENT: sclera anicteric, moist mucus membranes Neck: supple Lungs: clear to auscultation bilaterally Heart: regular rate and rhythm, no murmurs Abd: soft, non-tender, non-distended Ext: no edema Skin: warm/well-perfused Neuro: alert and oriented x3, no focal findings Psych: appropriate affect Objective Data Active Medications Acetaminophen (Acetaminophen 325 Mg Tablet) 650 mg PO Q6H PRN PRN Reason: Pain, Mild (Pain Scale 1-3) Last Admin: 06/07/22 17:27 Dose: 650 mg Documented By: ANTHONY Atorvastatin Calcium (Atorvastatin Calcium 80 Mg Tablet) 80 mg PO BEDTIME [facility] Last Admin: 06/07/22 21:06 Dose: 80 mg Documented By: DEBBI Dextrose (Dextrose 50 % 25 Gm/50 Ml Syringe) 25 gm IVPUSH Q15M PRN; Protocol PRN Reason: per Hypoglycemia Standing Ord. Docusate Sodium (Docusate Sodium 100 Mg Capsule) 100 mg PO DAILY PRN PRN Reason: Constipation Enoxaparin Sodium (Enoxaparin Sodium 40 Mg/0.4 Ml Syringe) 40 mg SUBCUT Q24H [facility] Last Admin: 06/06/22 14:51 Dose: 40 mg Documented By: CARLO Folic Acid (Folic Acid 1 Mg Tablet) 1 mg PO DAILY [facility] Stop: 06/09/22 13:29 Last Admin: 06/08/22 07:57 Dose: 1 mg Documented By: DEBBIE-SOFFA Glucose (Glucose Gel 15 Gm Gel..Gram.) 15 gm PO Q15M PRN; Protocol PRN Reason: per Hypoglycemia Standing Ord. Hydroxyzine HCl (Hydroxyzine Hcl 50 Mg Tablet) 100 mg PO BEDTIME PRN PRN Reason: insomnia Last Admin: 06/07/22 00:23 Dose: 100 mg Documented By: SANJAY Lactated Ringer's (Lr) 1,000 mls @ 100 mls/hr IVCONT .Q10H [facility] Last Admin: 06/08/22 02:51 Dose: 100 mls/hr Documented By: DIO Insulin Human Lispro (Insulin Lispro 100 Unit/Ml 3 Ml Vial) 0 unit SUBCUT QIDACHS [facility]; Protocol Last Admin: 06/08/22 07:56 Dose: 2 unit Documented By: MARCELA Labetalol HCl (Labetalol Hcl 100 Mg Tablet) 300 mg PO BID [facility] Last Admin: 06/08/22 07:57 Dose: 300 mg Documented By: MARCELA Magnesium Oxide ([facility]ide 400 Mg Tablet) [facility] Last Admin: 06/08/22 07:58 Dose: 400 mg Documented By: MARCELA Multivitamins/Vitamin C (Multivitamin Tablet) 1 tab PO DAILY [facility] Last Admin: 06/08/22 07:58 Dose: 1 tab Documented By: MARCELA Ondansetron HCl (Ondansetron Hcl 4 Mg/2 Ml Vial) 4 mg IVPUSH Q8H PRN PRN Reason: Nausea and Vomiting Last Admin: 06/06/22 17:15 Dose: 4 mg Documented By: CARLO Pantoprazole Sodium (Pantoprazole Sodium 40 Mg/10 Ml Vial) 40 mg IVPUSH BID@0630,1630 [facility] Last Admin: 06/08/22 05:58 Dose: 40 mg Documented By: DIO Paroxetine HCl (Paroxetine Hcl 40 Mg Tablet) 40 mg PO DAILY [facility] Last Admin: 06/08/22 07:58 Dose: 40 mg Documented By: MARCELA Pharmacy Consult (Consult Rx Etoh Phenob Im/Po) 1 each MISCELLANE ONCE PRN; Protocol PRN Reason: Consult order Pharmacy Consult (Consult Rx Perform Med Rec) 1 each MISCELLANE ONCE PRN PRN Reason: Consult order Phenobarbital (Phenobarbital 15 Mg Tablet) 45 mg PO BID [facility]; Protocol Stop: 06/08/22 21:01 Last Admin: 06/08/22 07:58 Dose: 45 mg Documented By: MARCELA Phenobarbital (Phenobarbital 15 Mg Tablet) 15 mg PO BID [facility]; Protocol Stop: 06/10/22 21:01 Phenobarbital (Phenobarbital 15 Mg Tablet) 15 mg PO DAILY [facility]; Protocol Stop: 06/12/22 09:01 Quetiapine Fumarate (Quetiapine Fumarate 200 Mg Tablet) 200 mg PO BEDTIME PRN PRN Reason: anxiety Last Admin: 06/07/22 21:17 Dose: 200 mg Documented By: DEBBI Sodium Chloride (0.9 % Sodium Chloride Flush 3 Ml Syringe) 3 ml IVFLUSH QSHIFT [facility] Last Admin: 06/08/22 07:07 Dose: Not Given Documented By: MARCELA Non-Admin Reason: See Note Thiamine HCl (Thiamine Hcl 100 Mg Tablet) 100 mg PO DAILY [facility] Stop: 06/09/22 13:29 Last Admin: 06/08/22 07:57 Dose: 100 mg Documented By: MARCELA Labs 06/08/22 07:08 06/08/22 07:08 Labs: Laboratory Results - last 24 hr 06/07/22 06/07/22 06/07/22 10:51 16:31 20:39 MCV MCH MCHC RDW Plt Count MPV Absolute Nucleated RBC Nucleated RBC % (auto) Anion Gap Estim Creat Clear Calc Estimated GFR POC Glucose 283 H 199 H 260 H Random Glucose Calcium Magnesium Total Bilirubin Direct Bilirubin AST ALT Alkaline Phosphatase Total Protein Albumin 06/08/22 06/08/22 06/08/22 07:08 07:08 07:19 MCV 82.4 MCH 29.7 MCHC 36.1 H RDW 11.8 Plt Count 99 L MPV 9.0 L Absolute Nucleated RBC 0.000 Nucleated RBC % (auto) 0.0 Anion Gap 12 Estim Creat Clear Calc 97.4 Estimated GFR > 60 POC Glucose 180 H Random Glucose 173 H Calcium 7.9 L Magnesium 1.6 Total Bilirubin 1.0 Direct Bilirubin 0.3 AST 40 H ALT 34 Alkaline Phosphatase 53 Total Protein 5.7 L Albumin 3.7 Assessment and Plan (1) Alcohol abuse with withdrawal: Status: Acute (2) Coffee ground emesis: Status: Acute Plan d#3 56yo M with AUD with hx withdrawal, mood disorder, HTN, HLD, DM2, insomnia admitted for EtOH withdrawal # EtOH withdrawal - phenobarbital taper + got extra dose yesterday for breakthrough withdrawal # AUD - Addiction Medicine consultation - vitamin supplementation # alcoholic ketoacidosis - resolved p IV fluid hydration # dark vomit - H+H stable, continue PPI, consider GI evaluation if recurs # chronic upper back pain - prn APAP # hypoK - repleted # DM2 - hold MTF, continue correction-dose lispro # HTN - labetalol # HLD - statin # mood disorder - paroxetine, hyroxyzine, quetiapine # VTE ppx: LMWH # dispo: anticipate home in next 1-2d Time Spent With Patient Time: Total time managing care of this patient today __35__ minutes. Quality Stroke Does the patient have a stroke diagnosis?: No VTE Prior VTE?: No VTE Risk Level:: Medical - moderate - high VTE Device Contraindication: Treatment Not Indicated VTE Drug Contraindication: N/A - Med Ordered
[2022-06-08 10:58] VITALS: BP 138/78; PULSE 73; RESP 20; TEMP 36.7; O2SAT 96
[2022-06-08 11:03] LABS: Glucose, Whole Blood 215 mg/dL (60-115)
[2022-06-08] MEDS: QUEtiapine Fumarate 25 MG TABLET PO (11:57)
--- NOTE | 2022-06-08 13:12 | P.PNADD_ITS ---
Subjective Subjective Date of Service: 06/08/22 Reason For Visit: alcohol Withdrawl Interim History: Patient is a 56 year old male currenly medically admitted with alcohol withdrawal. Reporting withdrawal sx improved from yesterday, however feeling a lot of shame due to drinking again. Seen by asbestos remover earlier in the day and shared that he has been abstinent from alcohol for 5 months while taking Naltrexone. He stopped taking Naltrexone and approx 3 weeks later he began drinking again. He had originally shared that he felt Naltrexone was contributing to sexual side effects, then after meeting with this bid writer, he reports stopping because he he thought he had this, I thought I was okay . Please see asbestos remover note for additional details This bid writer validated patients concern of side effects, and acknowledged that it is important to address this. Encouraged patient to discuss concerns with psychiatric provider as other medications may be contributing to sexual side eff ects as well (Paxil). Discussed patients goals moving forward in regards to alcohol. He states he does not ant to keep drinking and would like to resume Naltrexone. This bid writer reminded patient that Campral is also an option if he wishes to trial this instead. Patient declined, stating he knows the Naltrexone was helpful and he also does not want to increase number of pills needed to take daily. Review of Systems Constitutional: Reports as per HPI Mental Status Exam Mental Status Exam Patient Appearance: Appropriate Patient Orientation: Person, Place, Time and Situation Level of Consciousness: Awake and Appropriate Patient Behavior: Appropriate and Talkative Mood Description: Blunted Affect Description: Constricted Speech Pattern: Clear Depressive Symptoms: Feelings of Guilt Judgement: Fair Diagnostics Vital Signs (24Hr): Vital Signs - 24 hr 06/07/22 16:00 06/07/22 19:57 06/07/22 23:36 Temperature 97.6 F 98.2 F 97.6 F Pulse Rate 76 79 67 Respiratory Rate 18 15 18 Blood Pressure 135/78 136/82 143/77 H Pulse Oximetry 97 95 Oxygen Delivery Method Room Air Room Air 06/08/22 03:45 06/08/22 07:17 06/08/22 10:58 Temperature 98.7 F 97.3 F 98.0 F Pulse Rate 61 66 73 Respiratory Rate 16 20 20 Blood Pressure 155/80 H 138/79 138/78 Pulse Oximetry 95 96 96 Oxygen Delivery Method Room Air Room Air Room Air BMI result Body Mass Index 30.5 Labs 06/08/22 07:08 06/08/22 07:08 Labs: Laboratory Results - last 48 hr 06/06/22 06/06/22 06/06/22 07:56 16:42 19:54 WBC 8.7 RBC 4.51 L Hgb 13.7 L Hct 38.1 L MCV 84.5 MCH 30.4 MCHC 36.0 RDW 12.3 Plt Count 173 MPV 9.1 L Absolute Nucleated RBC 0.000 Nucleated RBC % (auto) 0.0 Sodium Potassium Chloride Carbon Dioxide Anion Gap BUN Creatinine Estim Creat Clear Calc Estimated GFR POC Glucose 151 H Random Glucose Calcium Magnesium 1.9 Total Bilirubin Direct Bilirubin AST ALT Alkaline Phosphatase Total Protein Albumin 06/06/22 06/06/22 06/07/22 19:54 20:24 06:56 WBC 5.0 RBC 4.10 L Hgb 12.4 L Hct 34.7 L MCV 84.6 MCH 30.2 MCHC 35.7 RDW 12.0 Plt Count 122 L D MPV 9.2 L Absolute Nucleated RBC 0.000 Nucleated RBC % (auto) 0.0 Sodium 141 Potassium 4.1 Chloride 98 Carbon Dioxide 28 Anion Gap 19 BUN 17 H Creatinine 0.93 Estim Creat Clear Calc 96.8 Estimated GFR > 60 POC Glucose 187 H Random Glucose 157 H Calcium 8.3 L Magnesium Total Bilirubin Direct Bilirubin AST ALT Alkaline Phosphatase Total Protein Albumin 06/07/22 06/07/22 06/07/22 06:56 08:08 10:51 WBC RBC Hgb Hct MCV MCH MCHC RDW Plt Count MPV Absolute Nucleated RBC Nucleated RBC % (auto) Sodium 137 Potassium 3.2 L D Chloride 97 Carbon Dioxide 28 Anion Gap 15 BUN 18 H Creatinine 0.95 Estim Creat Clear Calc 94.3 Estimated GFR > 60 POC Glucose 196 H 283 H Random Glucose 174 H Calcium 8.0 L Magnesium 1.7 Total Bilirubin Direct Bilirubin AST ALT Alkaline Phosphatase Total Protein Albumin 06/07/22 06/07/22 06/08/22 16:31 20:39 07:08 WBC 3.7 L RBC 3.97 L Hgb 11.8 L Hct 32.7 L MCV 82.4 MCH 29.7 MCHC 36.1 H RDW 11.8 Plt Count 99 L MPV 9.0 L Absolute Nucleated RBC 0.000 Nucleated RBC % (auto) 0.0 Sodium Potassium Chloride Carbon Dioxide Anion Gap BUN Creatinine Estim Creat Clear Calc Estimated GFR POC Glucose 199 H 260 H Random Glucose Calcium Magnesium Total Bilirubin Direct Bilirubin AST ALT Alkaline Phosphatase Total Protein Albumin 06/08/22 06/08/22 06/08/22 07:08 07:19 11:00 WBC RBC Hgb Hct MCV MCH MCHC RDW Plt Count MPV Absolute Nucleated RBC Nucleated RBC % (auto) Sodium 142 Potassium 3.8 Chloride 103 Carbon Dioxide 31 H Anion Gap 12 BUN 11 Creatinine 0.92 Estim Creat Clear Calc 97.4 Estimated GFR > 60 POC Glucose 180 H 215 H Random Glucose 173 H Calcium 7.9 L Magnesium 1.6 Total Bilirubin 1.0 Direct Bilirubin 0.3 AST 40 H ALT 34 Alkaline Phosphatase 53 Total Protein 5.7 L Albumin 3.7 Medications Medications Current Medications Acetaminophen (Acetaminophen 325 Mg Tablet) 650 mg PO Q6H PRN PRN Reason: Pain, Mild (Pain Scale 1-3) Last Admin: 06/07/22 17:27 Dose: 650 mg Atorvastatin Calcium (Atorvastatin Calcium 80 Mg Tablet) 80 mg PO BEDTIME [facility] Last Admin: 06/07/22 21:06 Dose: 80 mg Dextrose (Dextrose 50 % 25 Gm/50 Ml Syringe) 25 gm IVPUSH Q15M PRN; Protocol PRN Reason: per Hypoglycemia Standing Ord. Docusate Sodium (Docusate Sodium 100 Mg Capsule) 100 mg PO DAILY PRN PRN Reason: Constipation Enoxaparin Sodium (Enoxaparin Sodium 40 Mg/0.4 Ml Syringe) 40 mg SUBCUT Q24H [facility] Last Admin: 06/06/22 14:51 Dose: 40 mg Folic Acid (Folic Acid 1 Mg Tablet) 1 mg PO DAILY [facility] Stop: 06/09/22 13:29 Last Admin: 06/08/22 07:57 Dose: 1 mg Glucose (Glucose Gel 15 Gm Gel..Gram.) 15 gm PO Q15M PRN; Protocol PRN Reason: per Hypoglycemia Standing Ord. Hydroxyzine HCl (Hydroxyzine Hcl 50 Mg Tablet) 100 mg PO BEDTIME PRN PRN Reason: insomnia Last Admin: 06/07/22 00:23 Dose: 100 mg Lactated Ringer's (Lr) 1,000 mls @ 100 mls/hr IVCONT .Q10H [facility] Last Admin: 06/08/22 11:58 Dose: 100 mls/hr Insulin Human Lispro (Insulin Lispro 100 Unit/Ml 3 Ml Vial) 0 unit SUBCUT QIDACHS [facility]; Protocol Last Admin: 06/08/22 11:19 Dose: 4 unit Labetalol HCl (Labetalol Hcl 100 Mg Tablet) 300 mg PO BID [facility] Last Admin: 06/08/22 07:57 Dose: 300 mg Magnesium Oxide (Magnesium Oxide 400 Mg Tablet) 400 mg PO BIDPC [facility] Last Admin: 06/08/22 07:58 Dose: 400 mg Multivitamins/Vitamin C (Multivitamin Tablet) 1 tab PO DAILY [facility] Last Admin: 06/08/22 07:58 Dose: 1 tab Ondansetron HCl (Ondansetron Hcl 4 Mg/2 Ml Vial) 4 mg IVPUSH Q8H PRN PRN Reason: Nausea and Vomiting Last Admin: 06/06/22 17:15 Dose: 4 mg Pantoprazole Sodium (Pantoprazole Sodium 40 Mg/10 Ml Vial) 40 mg IVPUSH BID@0630,1630 [facility] Last Admin: 06/08/22 05:58 Dose: 40 mg Paroxetine HCl (Paroxetine Hcl 40 Mg Tablet) 40 mg PO DAILY [facility] Last Admin: 06/08/22 07:58 Dose: 40 mg Pharmacy Consult (Consult Rx Etoh Phenob Im/Po) 1 each MISCELLANE ONCE PRN; Protocol PRN Reason: Consult order Pharmacy Consult (Consult Rx Perform Med Rec) 1 each MISCELLANE ONCE PRN PRN Reason: Consult order Phenobarbital (Phenobarbital 15 Mg Tablet) 45 mg PO BID [facility]; Protocol Stop: 06/08/22 21:01 Last Admin: 06/08/22 07:58 Dose: 45 mg Phenobarbital (Phenobarbital 15 Mg Tablet) 15 mg PO BID [facility]; Protocol Stop: 06/10/22 21:01 Phenobarbital (Phenobarbital 15 Mg Tablet) 15 mg PO DAILY [facility]; Protocol Stop: 06/12/22 09:01 Quetiapine Fumarate (Quetiapine Fumarate 200 Mg Tablet) 200 mg PO BEDTIME PRN PRN Reason: anxiety Last Admin: 06/07/22 21:17 Dose: 200 mg Sodium Chloride (0.9 % Sodium Chloride Flush 3 Ml Syringe) 3 ml IVFLUSH QSHIFT [facility] Last Admin: 06/08/22 07:07 Dose: Not Given Thiamine HCl (Thiamine Hcl 100 Mg Tablet) 100 mg PO DAILY [facility] Stop: 06/09/22 13:29 Last Admin: 06/08/22 07:57 Dose: 100 mg Allergies Allergies Allergy/AdvReac Type Severity Reaction Status Date / Time No Known Allergies Allergy Verified 05/20/22 11:44 [No Known Allergies*] Assessment & Plan Assessment & Plan (1) Alcohol use disorder, severe, dependence: Status: Acute Code(s): F10.20 - Alcohol dependence, uncomplicated Assessment and Plan: * restart naltrexone prior to discharge * discussed recovery supports, patient very familiar with and active in community--will be seeking out a sponsor * actively engaged with BH provider in the community--encouraged to follow up with her soon * PHP information provided by RN as requested by patient. Encouraged to call while here and schedule an intake. Total time managing care of this patient today __35__ minutes.
--- NOTE | 2022-06-08 13:24 | MHC.RECOVRN ---
Met with pt this morning after consult placed to CARE Team for alcohol use. Pt sitting in bed, awake, alert, easily engages in conversation. Pt familiar with t/w from consult in December 2021. Currently, pt reports drinking 1.75 liters of bourbon daily x 1 week. Pt unsure of trigger to resume alcohol use. Pt reports after last admission he abstained from alcohol for about 5 months. Pt was attending AA meetings, taking naltrexone, and going to the gym 5x weekly. Pt reports concerns over naltrexone having side effects causing sexual dysfunction. Pt reports he stopped taking the medication and side effects improved. Pt also reports he has been seeing a therapist and psychiatrist and has been diagnosed with biploar disorder and started on medications. Pt educated that other medications may be leading to dysfunction. Pt would like to restart naltrexone if sexual side effects are not typical with this medication. Discussed recovery resources and supports, pt interested in PHP. Provided with information and encouraged to call to schedule intake. Pt plans to return home, attend PHP, attend AA, obtain a sponsor, continue with medications as well as seeing outpatient providers. Pt provided with written resources as well as t/w contact information if needed. Discussed with Cheri Méndez APRN.
[2022-06-08 15:23] VITALS: BP 144/84; PULSE 69; RESP 17; TEMP 36.6; O2SAT 96
[2022-06-08] MEDS: Acetaminophen 325 MG TABLET 650 MG PO (16:04)
[2022-06-08 16:40] LABS: Glucose, Whole Blood 221 mg/dL (60-115)
[2022-06-08 20:00] VITALS: BP 137/78; PULSE 98; RESP 18; TEMP 36.7; O2SAT 98
[2022-06-08 20:07] LABS: Glucose, Whole Blood 201 mg/dL (60-115)
[2022-06-08] MEDS: QUEtiapine Fumarate 200 MG TABLET PO (20:40)
[2022-06-08] MEDS: Atorvastatin Calcium 80 MG TABLET PO (20:40)
[2022-06-08 23:51] VITALS: BP 148/76; PULSE 62; RESP 18; TEMP 36.6; O2SAT 93
[2022-06-09 03:47] VITALS: BP 156/86; PULSE 64; RESP 18; TEMP 36.8; O2SAT 98
[2022-06-09] MEDS: Pantoprazole Sodium 40 MG/10 ML VIAL IVPUSH ×2 (06:27→16:02)
[2022-06-09 07:11] VITALS: BP 141/92; PULSE 70; RESP 20; TEMP 36.6; O2SAT 95
[2022-06-09 07:12] LABS: Glucose, Whole Blood 147 mg/dL (60-115)
[2022-06-09] MEDS: Thiamine HCL 100 MG TABLET PO (07:34)
[2022-06-09] MEDS: Multivitamin TABLET 1 TAB PO (07:34)
[2022-06-09] MEDS: PHENobarbitaL 15 MG TABLET PO (07:34)
[2022-06-09] MEDS: PARoxetine HCL 40 MG TABLET PO (07:34)
[2022-06-09] MEDS: Magnesium Oxide 400 MG TABLET PO ×2 (07:34→16:03)
[2022-06-09] MEDS: Folic Acid 1 MG TABLET PO (07:34)
[2022-06-09] MEDS: Labetalol HCL 100 MG TABLET 300 MG PO (07:35)
[2022-06-09] MEDS: 0.9 % Sodium Chloride Flush 3 ML SYRINGE IVFLUSH ×2 (07:38→16:03)
--- NOTE | 2022-06-09 10:44 | MHC.CM.PN ---
Addendum entered by Daiana Armijo 06/09/22 10:59: Patient has arranged for a ride; but the person can not get to [facility] until 6pm. A Gift card to the coffee shop has been provided. The patient agrees to go to the discharge lounge later this afternoon. Original Note: Patient is discharged today, home self care. Addiction Medicine consultation was performed. The Recovery nurse met with the patient yesterday. The patient will follow up with [facility] Partial Hospitalization Program @ Discharge. Patient has arranged for a ride home.
--- NOTE | 2022-06-09 10:49 | PM.DS ---
DS: Providers Provider Date of Service: 06/09/22 Date of admission: 06/06/22 13:06 Date of discharge: 06/09/22 Primary care physician: MERY Rivera Consults: 06/06/22 07:27 Consult to Care Team Stat Comment: Reason for consultation: alcohol withdrawal 06/06/22 13:34 Addiction Medicine Routine Consulting Provider: Addiction Covering Reason for consultation: Alcohol withdrawal DS: Diagnosis Discharge Diagnosis (1) Alcohol use disorder, severe, dependence: Status: Acute (2) Alcohol abuse with withdrawal: Status: Acute (3) Alcoholic ketoacidosis: Status: Acute DS: Summary Hospital Course Hospital Course: from admission H+P by hospitalist CHI Fuller, 06/06/22: Pt is a 56-year-old male with a PMH significant for?alcohol use disorder with previous withdrawal, insomnia, HTN, HLD, mood disorder, and [id number] diabetes who presents to the ED in acute alcohol withdrawal. Pt has been binging for the past week on a lot of bourbon. Pt was previously sober for 5 months and doing well until a financial issue led to relapse. Pt has been experiencing anxiety, restlessness, vomiting, uncontrollable rocking back and forth.? History of hallucinations from past withdrawals but currently denies any auditory visual hallucinations.? Patient has not had a history of seizures.? Patient also has abdominal pain from nausea and vomiting.? Vomitus is described as being dark in color, though fugitive investigator than coffee-grounds and of a liquid consistency.? Complains of chronic upper left-sided back pain for the past few months, denies any trauma to the area. Denies chest pain/pressure, palpitations.? No shortness of breath.? Denies fever, chills. In the ED was tachycardic up to 107, tachypneic up to 23. Labs were largely unremarkable, ethyl alcohol of 175 at time of presentation. Pt was treated with phenobarbital, IVF, ondansetron. Pt will be admitted to the hospital to telemetry for treatment of further evaluation of alcohol withdrawal. 56yo M with AUD with hx withdrawal, mood disorder, HTN, HLD, DM2, insomnia admitted for EtOH withdrawal and treated with phenobarbital taper for withdrawal. Addiction Medicine consulted and pt discharged on naltrexone and advised to call PHP for intake. Alcoholic ketoacidosis resolved with IV fluid hydration. Dark vomit did not recur and H+H was stable. Time Spent with Patient Time attestation: Total time managing care of this patient today _35___ minutes. Discharge coordination time: Greater than 30 minutes Quality: Safe Use of Opioids Does Pt have an Active Cancer Diagnosis on the Problem List?: No Quality: Stroke Does the patient have a stroke diagnosis?: No Physical Exam Vital Signs: Vital Signs: Last Vital Signs Temp 97.9 F 06/09/22 07:11 Pulse 70 06/09/22 07:11 Resp 20 06/09/22 07:11 BP 141/92 H 06/09/22 07:11 Pulse Ox 95 06/09/22 07:11 O2 Del Method 06/09/22 07:11 BMI result Body Mass Index 30.5 Gen: in no acute distress HEENT: sclera anicteric, moist mucus membranes Neck: supple Lungs: clear to auscultation bilaterally Heart: regular rate and rhythm, no murmurs Abd: soft, non-tender, non-distended Ext: no edema Skin: warm/well-perfused Neuro: alert and oriented x3, chronic tremor Psych: appropriate affect DS: Data Data Completed and Pending Completed studies during hospitalization [Text1]: Laboratory Results WBC 3.7 X10*3/uL (4.8-10.8) L 06/08/22 07:08 RBC 3.97 X10*6/uL (4.60-5.80) L 06/08/22 07:08 Hgb 11.8 g/dl (14.0-18.0) L 06/08/22 07:08 Hct 32.7 % (42.0-52.0) L 06/08/22 07:08 MCV 82.4 fL (80.0-98.0) 06/08/22 07:08 MCH 29.7 pg (27.0-33.0) 06/08/22 07:08 MCHC 36.1 g/dl (31.0-36.0) H 06/08/22 07:08 RDW 11.8 % (11.0-16.0) 06/08/22 07:08 Plt Count 99 X10*3/uL (160-400) L 06/08/22 07:08 MPV 9.0 fL (9.4-12.4) L 06/08/22 07:08 Immature Gran % (Auto) 0.3 % (0.0-0.4) 06/06/22 07:56 Neut % (Auto) 53.9 % (45-73) 06/06/22 07:56 Lymph % (Auto) 36.9 % (20-40) 06/06/22 07:56 Traill % (Auto) 7.9 % (2-11) 06/06/22 07:56 Eos % (Auto) 0.4 % (0-4) 06/06/22 07:56 Baso % (Auto) 0.6 % (0-2) 06/06/22 07:56 Lymph # (Auto) 3.4 X10*3/uL (1.2-4.9) 06/06/22 07:56 Traill # (Auto) 0.7 X10*3/uL (0.1-1.2) 06/06/22 07:56 Eos # (Auto) 0.0 X10*3/uL (0.0-0.4) 06/06/22 07:56 Baso # (Auto) 0.1 X10*3/uL (0.0-0.2) 06/06/22 07:56 Abs Immat Gran (auto) 0.03 X10*3/uL (0.00-0.03) 06/06/22 07:56 Absolute Neuts (auto) 5.0 x10*3/uL (2.0-8.3) 06/06/22 07:56 Absolute Nucleated RBC 0.000 X10*3/uL (0.0-0.012) 06/08/22 07:08 Nucleated RBC % (auto) 0.0 /100WBC (0.0-0.2) 06/08/22 07:08 PT 11.6 SEC (10.0-13.1) 06/06/22 07:56 INR 1.0 (0.9-1.1) 06/06/22 07:56 Sodium 142 mmol/L (135-145) 06/08/22 07:08 Potassium 3.8 mmol/L (3.3-5.1) 06/08/22 07:08 Chloride 103 mmol/L (96-108) 06/08/22 07:08 Carbon Dioxide 31 mmol/L (22-29) H 06/08/22 07:08 Anion Gap 12 (12-20) 06/08/22 07:08 BUN 11 mg/dL (9-16) 06/08/22 07:08 Creatinine 0.92 mg/dL (0.5-1.4) 06/08/22 07:08 Estim Creat Clear Calc 97.4 06/08/22 07:08 Estimated GFR > 60 06/08/22 07:08 POC Glucose 147 mg/dL (60-115) H 06/09/22 07:05 Random Glucose 173 mg/dL (60-115) H 06/08/22 07:08 Calcium 7.9 mg/dL (8.4-10.2) L 06/08/22 07:08 Magnesium 1.6 mg/dL (1.6-2.6) 06/08/22 07:08 Total Bilirubin 1.0 mg/dL (0.0-1.0) 06/08/22 07:08 Direct Bilirubin 0.3 mg/dL (0.0-0.5) 06/08/22 07:08 AST 40 U/L (5-37) H 06/08/22 07:08 ALT 34 U/L (0-40) 06/08/22 07:08 Alkaline Phosphatase 53 U/L (39-117) 06/08/22 07:08 Total Protein 5.7 g/dL (6.5-8.0) L 06/08/22 07:08 Albumin 3.7 g/dL (3.5-5.0) 06/08/22 07:08 Ethyl Alcohol 175 mg/dL 06/06/22 07:56 COVID-19 (ARCENIO) Negative (Negative) 06/06/22 12:05 COVID-19 Clin Com See Note 06/06/22 12:05 Labs on day of discharge: Laboratory Results - last 24 hr 06/08/22 06/08/22 06/08/22 11:00 16:36 19:59 POC Glucose 215 H 221 H 201 H 06/09/22 07:05 POC Glucose 147 H Discharge Plan Discharge Anticipated Discharge Date/Time: 06/09/22 10:39 Patient Disposition: Home, Self-Care Discharge Diagnosis: alcohol withdrawal alcohol use disorder Referrals: [facility] [Other] - 1 Week Miky Avitia, POLICE COMM[employer]ICATIONS DISPATCHER-[employer] [Primary Care Provider] - 1 Week Discharge Medications: New folic acid 1 mg Tablet 1 mg PO DAILY Qty: 30 0RF thiamine mononitrate (vit B1) 100 mg Tablet 100 mg PO DAILY Qty: 30 0RF propranolol 80 mg tablet 80 mg PO BID Qty: 60 0RF Rx Instructions: replaces labetalol naltrexone 50 mg tablet 50 mg PO DAILY Qty: 30 0RF Continued metformin 500 mg tablet 500 mg PO BID 30 Days Qty: 60 3RF primidone 50 mg tablet 50 mg PO BEDTIME Qty: 30 2RF hydroxyzine pamoate 50 mg capsule 2 cap PO BEDTIME PRN (Reason: insomnia) paroxetine HCl 40 mg tablet 1 tab PO DAILY rosuvastatin 20 mg tablet 20 mg PO BEDTIME Fiber Gummies 2 gram Tablet,Chewable 6 g PO DAILY quetiapine 100 mg tablet 200 mg PO BEDTIME PRN (Reason: anxiety) multivitamin Tablet 1 tab PO DAILY Discontinued labetalol 300 mg tablet 300 mg PO BID 30 Days Qty: 60 3RF Discharge Orders: Discharge Order (Routine); Ordered 06/09/22 Ordered By: Dasha Zavala Diet: Diabetic diet Activity on Discharge: As tolerated Stand Alone Forms: Patient Portal Discharge page, Work/School Release Care Plan Goals: sobriety Health Concerns: alcohol withdrawal alcohol use disorder Plan of Treatment: avoid alcohol change labetalol to propranolol take thiamine and folic acid take naltrexone 50 mg daily call PHP for intake follow up with [facility] Assessment: See Discharge Summary.
[2022-06-09] MEDS: Acetaminophen 325 MG TABLET 650 MG PO (10:55)
[2022-06-09 11:07] LABS: Glucose, Whole Blood 176 mg/dL (60-115)
[2022-06-09 11:19] VITALS: BP 138/76; PULSE 67; RESP 20; TEMP 36.7; O2SAT 97
[2022-06-09] MEDS: Insulin Lispro 100 UNIT/ML 3 ML VIAL SUBCUT ×2 (11:51→16:02)
[2022-06-09 15:42] VITALS: BP 153/96; PULSE 71; RESP 18; TEMP 36.6; O2SAT 91
[2022-06-09 15:51] LABS: Glucose, Whole Blood 165 mg/dL (60-115)
== END 2022-06-09 17:15 | disposition home or self-care (01) | DRG 425 ==
LOC: HO.ED 11:34 → HO.EDOVER 13:19 → HO.IMC 22:40
PROVIDERS: Internal Medicine; Admitting Provider Student in an Organized Health Care Education/Training Program; Emergency Provider Emergency Medicine; PCP Nurse Practitioner Family; Visit Provider Family Medicine
DX: E87.20 Acidosis, unspecified (principal); E11.9 Type 2 diabetes mellitus without complications; F10.229 Alcohol dependence with intoxication, unspecified; Z87.891 Personal history of nicotine dependence; F41.8 Other specified anxiety disorders; G89.29 Other chronic pain; F10.239 Alcohol dependence with withdrawal, unspecified; M54.9 Dorsalgia, unspecified; E87.6 Hypokalemia; E78.2 Mixed hyperlipidemia; Y90.6 Blood alcohol level of 120-199 mg/100 ml; I10 Essential (primary) hypertension; Z20.822 Contact with and (suspected) exposure to COVID-19; Z79.84 Long term (current) use of oral hypoglycemic drugs; Z79.899 Other long term (current) drug therapy
CPT/HCPCS: 36415; 80048; 80053; 80076; 82077; 82947; 83735; 85025; 85027; 85610; 87635; 96361; 96372; 96374; 96375; 96376; 99285; J1650; J2405; J2560

== ENCOUNTER 2022-08-02 10:00 | Outpatient (RCR) | payer OTHER, SELFPAY ==
--- NOTE | 2022-07-14 11:18 | HO.PS.ADMBH ---
HPI Date of Service: 07/14/22 Chief Complaint: bipolar,AUD Sources of Information: patient interviewed, chart reviewed and crisis/core team assessment reviewed HPI Medical Problems Affecting Mental Status: No Narrative: Patient is a 56-year-old single male, referred to PHP through [facility] where he was medically hospitalized due to acute alcohol withdrawals. Long history of alcohol dependence, bipolar disorder. Prior to hospitalization had been sober for 5 months, had relapsed for 1 week, drinking large amounts of bourbon. Reports that he tends to have long binges of alcohol when he does drink, which have led to psychiatric breakdowns. Currently lives with partner, describes her as supportive. Had attempted to return to work through weeks ago, states he was only able to work 4 days, ?I could not do it ?. Has visible tremors in both upper extremities. Reports that they appear to be long-term, related to his drinking. States that they make it very difficult for him to be able to work. I would identifies symptoms of depression and anxiety, including anhedonia, feeling hopeless and helpless, disrupted sleep, fatigue, poor motivation, decreased energy, poor appetite, feelings of shame and guilt. Denies actual SI with an intent or plan, but states ?hate myself, I have self loathing ?. Does state that he does not intent to harm himself or others in any way. Reports that he was hospitalized in November of 2021. States he was able to stay sober for 6 months, relapse due to experiencing financial stressors. Has been hospitalized several times in the past due to psychiatric symptoms. Has tried recovery engineer is in the past 3 times, states that it never worked out. Has attended AA off and on over the years, currently attending some meetings. Engaged with outpatient providers through [facility]. Past Psychiatric History: Inpatient: [facility] more than 10 years, [facility] recently x 3 [place] X3. In [place], X2. PHP in past OP: Chasity Fitzgerald MD, and therapist Tamiko Muñiz, both through [facility]. suicide attempts: none Past medication trials: sertraline, seroquel, prozac Reports hx of manic behaviors/hypomania Medical Evaluation Reviewed: Yes [facility] Medical History (Updated 07/14/22 @ 15:36 by Deysi Ervin) Acute hepatitis Alcohol abuse with withdrawal Alcohol use disorder, severe, dependence Alcohol withdrawal Alcoholic ketoacidosis Anxiety with depression Benign essential hypertension Diabetes mellitus GERD without esophagitis History of alcoholic hepatitis HTN (hypertension) Insomnia Mixed hyperlipidemia Obesity (BMI 30-39.9) Recurrent moderate major depressive disorder with anxiety Surgical History H/O colonoscopy History of esophagogastroduodenoscopy (EGD) Family History: father alcohol use, mother hx of Bipolar, Dementia Paternal and Maternal grandparents all with reported mental illness and dementia Sister bipolar disorder. Social History: Lives with GF of past 10 years. 2 adult children, 35 and 33. Five grandchildren GF is very supportive Hx of incarceration for 2.5 years s/p OUI Unemployed as of today, has applied for disability Substance History: Longstanding history alcohol use disorder, daily, recent binge, over past 30 years. Currently sober over 1 week. Has had periods of sobriety, up to 2 years at 1 time. Within past year had been sober 5 months at 1 time. Trauma History: denies Meds/Allergies Meds Home Medications Medication Instructions Recorded Confirmed Type quetiapine 100 mg tablet 200 mg PO BEDTIME PRN anxiety 01/06/22 07/14/22 History multivitamin 1 tab PO DAILY 03/19/22 07/14/22 History hydroxyzine pamoate 50 mg capsule 2 cap PO BEDTIME PRN insomnia 06/06/22 07/14/22 History inulin 2 gram chewable tablet 6 g PO DAILY 06/06/22 07/14/22 History (Fiber Gummies) paroxetine HCl 40 mg tablet 1 tab PO DAILY 06/06/22 07/14/22 History rosuvastatin 20 mg tablet 20 mg PO BEDTIME 06/06/22 07/14/22 History Allergies Allergies Allergy/AdvReac Type Severity Reaction Status Date / Time No Known Allergies Allergy Verified 07/13/22 10:30 [No Known Allergies*] Mental Status Exam Mental Status Exam Narrative: Well-developed, well-nourished male, NAD. Tremors noted bilateral upper extremities. Posture within normal limits. Normal ambulation. No cogwheeling or rigidity noted. No perceptual disturbances noted. Patient Appearance: Well Grooomed Patient Orientation: Person, Place, Time and Situation Level of Consciousness: Appropriate Patient Behavior: Appropriate Mood Description: Depressed Affect Description: Depressed Patient Cognition Impaired: No Ability to Follow Directions: Good Speech Pattern: Clear Memory Description: Intact Hallucinations: None Delusions: Not Present Thought Process: Intact Thought Content: positive for Intact and positive for Suicidal Ideation (Passive, no intent or plan.) Depressive Symptoms: Increased Anxiety, Difficulty Sleeping, Changes in Appetite (decreased), Loss of Int. in Activity, Feelings of Worthlessness, Hopelessness, Feelings of Guilt, Unhappiness, Increased Fatigue, Thoughts of /Suicide and Low Self Esteem Abnormal Motor Activity Signs and Symptoms: Tremors (bilateral hands) Judgement: Fair Assessment & Plan Assessment & Plan (1) Alcohol use disorder, severe, dependence: Status: Acute Code(s): F10.20 - Alcohol dependence, uncomplicated Assessment and Plan: Patient with longstanding history alcohol dependence, bipolar disorder. Has been hospitalized several times in the past due to increased depressive symptoms with SI. Passive SI at the time, no intent or plan. Currently engage with outpatient providers through [facility]. No concerns regarding medications at this time. Reports that when he has had binges in the past, if continued, they have led to psychiatric breakdowns. He would like to engage in treatment now so as to prevent this from occurring. Has engaged in a partial program in the past. Is hoping to focus on coping skills and recovery from alcohol while engaged in this program. (2) Bipolar disorder, current episode depressed, severe, without psychotic features: Status: Acute Code(s): F31.4 - Bipolar disorder, current episode depressed, severe, without psychotic features Assessment and Plan: Patient currently satisfied with medications, would prefer to not have medication changes while here. Plan 1. Continue with current [facility] plan of care. 2. Continue with medications as currently prescribed by outpatient provider. 3. Recovery support, risk reduction discussion. 4. Follow-up as per protocol. Certification I certify that partial hospital treatment is medically necessary due to the symptoms and problems resulting from the patient's mental illness and the failure to treat the patient at the partial hospital level of care would likely result in the patient requiring inpatient psychiatric care which could not be prevented at a less intensive level of care. Time Spent With Patient Time: Total time managing care of this patient today ____ minutes.
--- NOTE | 2022-07-14 15:38 | PC.ADMIT ---
Patient is a 56 year old male who holds a dx of Bipolar disorder who is struggling with severe alcohol use disorder and depression with passive SI, denied plan or intent. Patient reportedly went to the ER with acute ETOH withdrawal and was medically admitted. BAL 175. Patient was tachycardic and tachypneic. Patient also has a history of hallucinations with alcohol withdrawal. Patient was treated with Phenobarbital and Ondansetron. He reports he was sober for almost 6 months prior to hospitalization and relapsed for a week stating he would drink until he was unconscious. Patient reports second relapse 8 days ago for 2 days drinking 5 beers and 4 shots each day. He denied cravings for ETOH at present. He denied ETOH withdrawal sxs. Vital signs stable 110/72 P 60. No diaphoresis. Patient has a history of DUI's and hx of incarceration related to alcohol use. See Integrative Assessment for more information. Patient does have a hand tremor however stated he has had the tremor all his life and reports recently it has worsened thus has an appointment with a neurologist in the beginning of August 2022. Patient reports he wants to get the motivation to work out at the gym again as he stated this had helped him stay sober for almost 6 months prior to his recent relapse. He stated he felt good about himself at that time. Patient is currently prescribed Naltrexone. 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 Was there for 4 days (new Job). November of last year I was let go from that job . Patient is alert and oriented x4. Calm and cooperative. Presented with depressed mood, anxious affect. Wants to get sober from ETOH. Longest period of sobriety was 2 years. Patient reports he started drinking alcohol at age 16. Patient given a copy of his safety plan if needed. I reviewed his safety plan with him. Medications reconciled with patient and medical record from inpatient hospitalization. He reports taking medications as prescribed.
[2022-07-14 15:41] VITALS: BP 110/72; PULSE 60; TEMP 36.8
[2022-07-14 15:42] VITALS: BMI 31.8
--- NOTE | 2022-07-15 15:44 | HO.PHP ---
Clients case was reviewed and opened today in treatment team.
--- NOTE | 2022-07-20 10:41 | HO.PHPPROGNO ---
Subjective Subjective Date of Service: 07/20/22 Reason For Visit: bipolar,AUD Medical Problems Affecting Mental Status: No Interim History: Reports feeling less depressed, states he can feel improvement ?getting better every day ?. States ?my mind is clearing up ?. Finding group somewhat helpful. Satisfied with current medication regimen. Denies any thoughts of harm to self or others, no SI, no safety concerns. Denies any cravings to drink alcohol, remains abstinent. Medication Compliance: Yes Side effects from medications: No Attending Groups: Yes Review of Systems Acute medical concerns: No Medical Review of Systems: unchanged Review of Systems Review of Systems Yes all other systems are reviewed and are negative Constitutional: Reports no additional constitutional complaints Mental Status Exam Mental Status Exam Narrative: NAD Patient Appearance: Appropriate Patient Orientation: Person, Place, Time and Situation Level of Consciousness: Appropriate Patient Behavior: Appropriate Mood Description: Depressed (less) Affect Description: Appropriate Patient Cognition Impaired: No Ability to Follow Directions: Excellent Speech Pattern: Clear Memory Description: Intact Hallucinations: None Delusions: Not Present Thought Process: Intact Thought Content: positive for Intact Depressive Symptoms: Increased Anxiety, Feelings of Guilt and Low Self Esteem Judgement: Fair Diagnostics Vital Signs (24Hr): BMI result Body Mass Index 31.8 Assessment & Plan Assessment & Plan (1) Bipolar disorder, current episode depressed, severe, without psychotic features: Status: Acute Code(s): F31.4 - Bipolar disorder, current episode depressed, severe, without psychotic features Assessment and Plan: Reports feeling less depressed, states he can feel improvement ?getting better every day ?. States ?my mind is clearing up ?. Feels stable. Finding group somewhat helpful. Satisfied with current medication regimen. Denies any thoughts of harm to self or others, no SI, no safety concerns. Denies any cravings to drink alcohol, remains abstinent. Reports that he does have a pattern where he feels good for several months, feels physically healthy, becomes more productive, and then relapses. He expressed concern over this pattern, would like to stop it. Discussed will continue working with an outpatient therapist, attend 12 step meetings, start working with a sponsor. He was in agreement with the suggestions. (2) Alcohol use disorder, severe, dependence: Status: Acute Code(s): F10.20 - Alcohol dependence, uncomplicated Plan 1. Continue with current [facility] plan of care. 2. Continue with current medications as prescribed by outpatient provider. 3. Follow-up as per protocol. Patient educated on: diagnosis, medication risk/benefits, substance abuse and therapeutic strategies Informed Consent: understands Reason for contiued partial hosp. stay Substantial Risk for: inability to function, rapid decompensation and med/psych decompensation Certification I certify that partial hospital treatment is medically necessary due to the symptoms and problems resulting from the patient's mental illness and the failure to treat the patient at the partial hospital level of care would likely result in the patient requiring inpatient psychiatric care which could not be prevented at a less intensive level of care. Total time managing care of this patient today ____ minutes. Discharge Plan Discharge Attending provider: Alfred Kumar Medications: No Action metformin 500 mg tablet 500 mg PO BID 30 Days Qty: 60 3RF primidone 50 mg tablet 50 mg PO BEDTIME Qty: 30 2RF hydroxyzine pamoate 50 mg capsule 2 cap PO BEDTIME PRN (Reason: insomnia) paroxetine HCl 40 mg tablet 1 tab PO DAILY rosuvastatin 20 mg tablet 20 mg PO BEDTIME Fiber Gummies 2 gram Tablet,Chewable 6 g PO DAILY folic acid 1 mg Tablet 1 mg PO DAILY Qty: 30 0RF thiamine mononitrate (vit B1) 100 mg Tablet 100 mg PO DAILY Qty: 30 0RF propranolol 80 mg tablet 80 mg PO BID Qty: 60 0RF Rx Instructions: replaces labetalol naltrexone 50 mg tablet 50 mg PO DAILY Qty: 30 0RF quetiapine 100 mg tablet 200 mg PO BEDTIME PRN (Reason: anxiety) sulfamethoxazole-trimethoprim [Bactrim DS] 800-160 mg tablet 1 tab PO Q12H 10 Days Qty: 20 0RF multivitamin Tablet 1 tab PO DAILY Stand Alone Forms: Patient Portal Discharge page
--- NOTE | 2022-07-27 09:58 | HO.PHPPROGNO ---
Subjective Subjective Date of Service: 07/27/22 Reason For Visit: bipolar,AUD Medical Problems Affecting Mental Status: No Interim History: Feels mood has improved. Craved alcohol over long weekend, did not use. Using coping skills. No concerns with medications No SI, feels safe. Medication Compliance: Yes Side effects from medications: No Attending Groups: Yes Review of Systems Acute medical concerns: No Medical Review of Systems: unchanged Review of Systems Review of Systems Yes all other systems are reviewed and are negative Constitutional: Reports no additional constitutional complaints Mental Status Exam Mental Status Exam Narrative: NAD Patient Appearance: Appropriate Patient Orientation: Person, Place, Time and Situation Level of Consciousness: Appropriate Patient Behavior: Appropriate Mood Description: Depressed (less) Affect Description: Anxious Patient Cognition Impaired: No Ability to Follow Directions: Excellent Speech Pattern: Clear Memory Description: Intact Hallucinations: None Delusions: Not Present Thought Process: Intact Thought Content: positive for Intact Depressive Symptoms: Increased Anxiety, Feelings of Guilt and Low Self Esteem Judgement: Fair Diagnostics Vital Signs (24Hr): BMI result Body Mass Index 31.8 Assessment & Plan Assessment & Plan (1) Bipolar disorder, current episode depressed, severe, without psychotic features: Status: Acute Code(s): F31.4 - Bipolar disorder, current episode depressed, severe, without psychotic features Assessment and Plan: Reports mood improved. No SI, no safety concerns. Satisfied with current medication regimen. (2) Alcohol use disorder, severe, dependence: Status: Acute Code(s): F10.20 - Alcohol dependence, uncomplicated Assessment and Plan: Reports he was craving alcohol over long weekend. Utilizing coping skills, was able to abstain from use. Discussed strategies for avoiding triggers, relapse prevention tools. Plan 1. Continue with current [facility] plan of care. 2. Continue risk reduction discussion. 3. Follow-up as per protocol. Patient educated on: diagnosis, medication risk/benefits, substance abuse and therapeutic strategies Reason for contiued partial hosp. stay Substantial Risk for: inability to function and rapid decompensation Certification I certify that partial hospital treatment is medically necessary due to the symptoms and problems resulting from the patient's mental illness and the failure to treat the patient at the partial hospital level of care would likely result in the patient requiring inpatient psychiatric care which could not be prevented at a less intensive level of care. Total time managing care of this patient today _15__ minutes. Discharge Plan Discharge Attending provider: Alfred Kumar Medications: New hydroxyzine pamoate 50 mg capsule 100 mg PO BEDTIME PRN (Reason: insomnia) Qty: 30 0RF paroxetine HCl 40 mg tablet 40 mg PO DAILY Qty: 30 0RF quetiapine 100 mg tablet 200 mg PO BEDTIME PRN (Reason: anxiety) Qty: 60 0RF No Action metformin 500 mg tablet 500 mg PO BID 30 Days Qty: 60 3RF primidone 50 mg tablet 50 mg PO BEDTIME Qty: 30 2RF hydroxyzine pamoate 50 mg capsule 2 cap PO BEDTIME PRN (Reason: insomnia) paroxetine HCl 40 mg tablet 1 tab PO DAILY rosuvastatin 20 mg tablet 20 mg PO BEDTIME Fiber Gummies 2 gram Tablet,Chewable 6 g PO DAILY folic acid 1 mg Tablet 1 mg PO DAILY Qty: 30 0RF thiamine mononitrate (vit B1) 100 mg Tablet 100 mg PO DAILY Qty: 30 0RF propranolol 80 mg tablet 80 mg PO BID Qty: 60 0RF Rx Instructions: replaces labetalol naltrexone 50 mg tablet 50 mg PO DAILY Qty: 30 0RF quetiapine 100 mg tablet 200 mg PO BEDTIME PRN (Reason: anxiety) sulfamethoxazole-trimethoprim [Bactrim DS] 800-160 mg tablet 1 tab PO Q12H 10 Days Qty: 20 0RF multivitamin Tablet 1 tab PO DAILY Stand Alone Forms: Patient Portal Discharge page
--- NOTE | 2022-07-30 08:04 | HO.PHP ---
[facility] staff followed up with Jose Miguel due to him calling out sick today. Jose Miguel mentioned that he has not been feeling well. [facility] asked Jose Miguel if he was aware today was his discharge date. Jose Miguel voiced that he was. [facility] staff explored if Jose Miguel would like to discharge today or come back on Tuesday to do his discharge when feeling better. Jose Miguel disclosed that he would like to come in on Tuesday to say goodbye to the group. [facility] staff was receptive.
--- NOTE | 2022-07-30 08:29 | PC.NURSE ---
Frank called out sick today. [facility] staff is aware.
--- NOTE | 2022-08-02 11:55 | P.PNPSP_ITS ---
Subjective Subjective Date of Service: 08/02/22 Reason For Visit: bipolar,AUD Medical Problems Affecting Mental Status: No Interim History: Describes mood today as ?good ?. 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 Reports bilateral hand tremors, believes it may be hereditary, as his father and grandfather, as well as his son all have this. Continues to remain abstinent from alcohol, denies cravings. Reports the quetiapine is helping him sleep. Has an upcoming neurology appointment in August. No SI, no safety concerns. Feels stable for discharge from [facility] at this time. Medication Compliance: Yes Side effects from medications: No Attending Groups: Yes Review of Systems Acute medical concerns: No Medical Review of Systems: unchanged Review of Systems Review of Systems bilateral hand tremors, says they are ongoing. Yes all other systems are reviewed and are negative Constitutional: Reports no additional constitutional complaints Mental Status Exam Mental Status Exam Narrative: NAD Patient Appearance: Well Grooomed Patient Orientation: Person, Place, Time and Situation Level of Consciousness: Appropriate Patient Behavior: Appropriate, Cooperative and Good Eye Contact Mood Description: Calm and Appropriate Affect Description: Appropriate Patient Cognition Impaired: No Ability to Follow Directions: Excellent Speech Pattern: Clear Memory Description: Intact Hallucinations: None Delusions: Not Present Thought Process: Intact Thought Content: positive for Intact Depressive Symptoms: Increased Anxiety, Feelings of Guilt and Low Self Esteem Abnormal Motor Activity Signs and Symptoms: Tremors (bilat hands, especially when writing, etc) Judgement: Good Diagnostics Vital Signs (24Hr): BMI result Body Mass Index 31.8 Assessment & Plan Assessment & Plan (1) Bipolar disorder, current episode depressed, severe, without psychotic features: Status: Acute Code(s): F31.4 - Bipolar disorder, current episode depressed, severe, without psychotic features Assessment and Plan: Describes mood today as ?good ?. Stabilized. 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 Reports has ulcers due to years of heavy alcohol use. Reports bilateral hand tremors, believes it may be hereditary, as his father and grandfather, as well as his son all have this. States that this has cost him a job recently, as his hands were shaking during interview. States that this is his baseline, even when he is sober, fully detoxed. Continues to remain abstinent from alcohol, denies cravings. Continues to attend alcoholics anonymous meetings. Taking naltrexone as prescribed. No concerns. Reports the quetiapine is helping him sleep. Has an upcoming neurology appointment in August. We discussed possibility gabapentin in helping with hand tremors, also helps in early recovery from alcohol use disorder. Education was provided. Patient has a medical appointment today with his primary care physician, he will discuss this med with him. No SI, no safety concerns. Feels stable for discharge from [facility] at this time. (2) Alcohol use disorder, severe, dependence: Status: Acute Code(s): F10.20 - Alcohol dependence, uncomplicated Plan 1. Patient appears stable for discharge from [facility] at this time. 2. Patient to follow-up with outpatient providers going forward. Patient educated on: diagnosis, medication risk/benefits, substance abuse and therapeutic strategies Informed Consent: understands Reason for contiued partial hosp. stay Substantial Risk for: stable for discharge Certification I certify that partial hospital treatment is medically necessary due to the symptoms and problems resulting from the patient's mental illness and the failure to treat the patient at the partial hospital level of care would likely result in the patient requiring inpatient psychiatric care which could not be prevented at a less intensive level of care. Total time managing care of this patient today _20___ minutes. Discharge Plan Discharge Attending provider: Alfred Kumar Medications: New hydroxyzine pamoate 50 mg capsule 100 mg PO BEDTIME PRN (Reason: insomnia) Qty: 30 0RF paroxetine HCl 40 mg tablet 40 mg PO DAILY Qty: 30 0RF quetiapine 100 mg tablet 200 mg PO BEDTIME PRN (Reason: anxiety) Qty: 60 0RF No Action metformin 500 mg tablet 500 mg PO BID 30 Days Qty: 60 3RF primidone 50 mg tablet 50 mg PO BEDTIME Qty: 30 2RF rosuvastatin 20 mg tablet 20 mg PO BEDTIME 30 Days Qty: 30 3RF hydroxyzine pamoate 50 mg capsule 2 cap PO BEDTIME PRN (Reason: insomnia) folic acid 1 mg Tablet 1 mg PO DAILY Qty: 30 0RF thiamine mononitrate (vit B1) 100 mg Tablet 100 mg PO DAILY Qty: 30 0RF naltrexone 50 mg tablet 50 mg PO DAILY Qty: 30 0RF labetalol 300 mg tablet 300 mg PO BID multivitamin Tablet 1 tab PO DAILY Stand Alone Forms: Patient Portal Discharge page Patient Education: Bipolar Disorder (DC), Alcohol Use Disorder (DC)
== END 2022-08-02 23:59 | disposition home or self-care (01) ==
LOC: HO.PHPA 10:00
PROVIDERS: Visit Provider Psychiatry & Neurology Psychiatry
DX: F31.4 Bipolar disorder, current episode depressed, severe, without psychotic features (principal); F10.20 Alcohol dependence, uncomplicated; Z79.899 Other long term (current) drug therapy
CPT/HCPCS: 90791; 90853

== ENCOUNTER → 2022-08-10 14:24 | Outpatient (BNVA) | payer OTHER, SELFPAY | PROVIDERS: PCP Nurse Practitioner Family; Visit Provider Psychiatry & Neurology Neurology | DX: G25.0 Essential tremor (principal); G25.2 Other specified forms of tremor; R06.83 Snoring; G47.10 Hypersomnia, unspecified | CPT/HCPCS: 99202 ==

== ENCOUNTER 2022-08-19 06:49 | Emergency (ER) | payer OTHER, SELFPAY ==
[2022-08-19 06:53] VITALS: BP 150/109; PULSE 105; RESP 20; TEMP 36.8; O2SAT 98; BMI 31.3
== END 2022-08-19 08:29 | disposition left against medical advice (07) ==
PROVIDERS: Emergency Provider Emergency Medicine
DX: Z71.41 Alcohol abuse counseling and surveillance of alcoholic (principal)
CPT/HCPCS: 99281

== ENCOUNTER 2022-08-19 10:29 | Emergency (ER) | payer OTHER, SELFPAY ==
--- NOTE | ~2022-08-19 | XR_ITS ---
EXAMINATION: XR CHEST CLINICAL INFORMATION: Chest pain. COMPARISON: Chest radiograph 10/09/2018. TECHNIQUE: 2 views of the chest were obtained. FINDINGS: Stable prominence of the cardiomediastinal silhouette. Low lung volumes with diffuse bronchovascular crowding. No focal airspace opacity, pleural effusion or pneumothorax. No acute osseous abnormalities. The visualized upper abdomen is within normal limits. XR/XR chest 2V IMPRESSION: 1. Low lung volumes with bronchovascular crowding. 2. No focal airspace opacity. 3. No pleural effusion or pneumothorax.
[2022-08-19 10:43] VITALS: BP 240/192; PULSE 116; RESP 16; TEMP 35.8; O2SAT 97; BMI 31.3
[2022-08-19 10:57] VITALS: BP 132/95; PULSE 116; TEMP 36.9; O2SAT 99
--- NOTE | 2022-08-19 11:08 | ED.ALCOHOL ---
HPI - Alcohol General Chief Complaint: ETOH/Substance Use <CHI Uriarte - Last Filed: 08/19/22 17:23> Stated Complaint: detox <CHI Uriarte - Last Filed: 08/19/22 17:23> Time Seen by Provider: 08/19/22 11:00 <CHI Uriarte Last Filed: 08/19/22 17:23> Source: patient and RN notes reviewed <CHI Uriarte - Last Filed: 08/19/22 17:23> Mode of arrival: ambulatory <CHI Uriarte - Last Filed: 08/19/22 17:23> Limitations: no limitations <CHI Uriarte Last Filed: 08/19/22 17:23> History of Present Illness HPI narrative: This is a 57-year-old male, with a past medical history of alcohol abuse, hypertension, hyperlipidemia, GERD, diabetes, and hepatitis, who presents to the emergency department today with complaints alcohol withdrawal symptoms since today. Patient reports his last drink was 1/2 beer this morning. Patient reports that he goes on ?Benders? where he is sober for periods of time and then drinks excessively is for several days and weeks at a time. Patient reports that he has been on this ?Parnell? for the last 5 days. He approximates that he is drinking 20 beers per day with numerous nips of at hard alcohol. Patient reports that he had some heartburn which just started upon arrival in the emergency department. He denies any headaches, dizziness, shortness of breath, palpitations, abdominal pain diarrhea. He does admit to having some nausea. He reports he has thoughts of suicide ?all the time , no homicidal ideations. No other complaints or concerns at this time. <CHI Uriarte - Last Filed: 08/19/22 17:23> MD complaint: alcohol withdrawal and desires rehab <CHI Uriarte Last Filed: 08/19/22 17:23> Last drink: Hours (ago) <CHI Uriarte Last Filed: 08/19/22 17:23> Amount of alcohol consumed: 1/2 beer <CHI Uriarte Last Filed: 08/19/22 17:23> Chronic alcohol use: Yes <CHI Uriarte Last Filed: 08/19/22 17:23> Previous visits for alcohol intoxication: Yes <CHI Uriarte Last Filed: 08/19/22 17:23> Recent trauma: No <CHI Uriarte Last Filed: 08/19/22 17:23> Associated symptoms: nausea <CHI Uriarte Last Filed: 08/19/22 17:23> Treatments prior to arrival: none <CHI Uriarte Last Filed: 08/19/22 17:23> Related Data Home Medications: Home Medications Medication Instructions Recorded Confirmed multivitamin 1 tab PO DAILY 03/19/22 08/10/22 hydroxyzine pamoate 50 mg capsule 2 cap PO BEDTIME PRN insomnia 06/06/22 08/10/22 labetalol 300 mg tablet 300 mg PO BID 08/02/22 08/10/22 Previous Rx's Medication Instructions Recorded metformin 500 mg tablet 500 mg PO BID 30 days #60 tabs 05/31/22 folic acid 1 mg tablet 1 mg PO DAILY #30 tabs 06/09/22 naltrexone 50 mg tablet 50 mg PO DAILY #30 tabs 06/09/22 thiamine mononitrate (vit B1) 100 100 mg PO DAILY #30 tabs 06/09/22 mg tablet hydroxyzine pamoate 50 mg capsule 100 mg PO BEDTIME PRN insomnia #30 07/22/22 caps paroxetine HCl 40 mg tablet 40 mg PO DAILY #30 tabs 07/22/22 quetiapine 100 mg tablet 200 mg PO BEDTIME PRN anxiety #60 07/22/22 tabs rosuvastatin 20 mg tablet 20 mg PO BEDTIME 30 days #30 tabs 08/02/22 primidone 50 mg tablet 100 mg PO BID 30 days #120 tabs 08/10/22 <CHI Uriarte Last Filed: 08/19/22 17:23> Allergies/Adverse Reactions: Allergies Allergy/AdvReac Type Severity Reaction Status Date / Time No Known Allergies Allergy Verified 08/19/22 06:53 [No Known Allergies*] <CHI Uriarte Last Filed: 08/19/22 17:23> Review of Systems Review of Systems: Constitutional: No Weight loss, No Fever, No Chills, No Night Sweats, No Fatigue, No Malaise ENT/Mouth: No Hearing loss, No Ear Pain, No Nasal Congestion, No Sinus Pain, No Hoarseness, No sore throat, No Rhinorrhea, No Swallowing Difficulty Eyes: No Eye Pain, No Swelling, No Redness, No Foreign Body, No Discharge, No Vision Changes Cardiovascular: + Chest Pain, No SOB, No Dyspnea on Exertion, No Orthopnea, No Edema, No Palpitations Respiratory: No Cough, No Sputum, No Wheezing, No Smoke Exposure, No Dyspnea Gastrointestinal: + Nausea, No Vomiting, No Diarrhea, No Constipation, No Abdominal pain, No Hematochezia, No Melena Genitourinary: No irregular bleeding, No Dysuria, No Urinary Frequency, No Hematuria, No Urinary Incontinence/retention, No Urgency, No Flank Pain, No Urinary Flow Changes, No Hesitancy Musculoskeletal: No joint pain, No Myalgias, No Joint Swelling Skin: No Skin Lesions, No rash Neuro: No Weakness, No Numbness, No Paresthesias, No Loss of Consciousness, No Dizziness, No Headache Psych: No Anxiety/Panic, No Depression, No SI/HI/AH/VH, No Social Issues, Heme/Lymph: No Bruising, No Bleeding,No Lymphadenopathy Endocrine: No Polyuria, No Polydipsia, No Temperature Intolerance <CHI Uriarte - Last Filed: 08/19/22 17:23> Yes all other systems are reviewed and are negative <CHI Uriarte - Last Filed: 08/19/22 17:23> Constitutional: Constitutional: Reports as per HPI <CHI Uriarte - Last Filed: 08/19/22 17:23> [facility] Past Medical History Attestation statement: The following information was validated with the patient. <CHI Uriarte - Last Filed: 08/19/22 17:23> Medical History: Medical History Acute hepatitis Alcohol abuse with withdrawal Alcohol use disorder, severe, dependence Alcohol withdrawal Alcoholic ketoacidosis Anxiety with depression Benign essential hypertension Diabetes mellitus Essential and other specified forms of tremor GERD without esophagitis History of alcoholic hepatitis HTN (hypertension) Hypersomnolence Insomnia Mixed hyperlipidemia Obesity (BMI 30-39.9) Recurrent moderate major depressive disorder with anxiety Snoring <CHI Uriarte - Last Filed: 08/19/22 17:23> Surgical History: Surgical History H/O colonoscopy History of esophagogastroduodenoscopy (EGD) <CHI Uriarte - Last Filed: 08/19/22 17:23> Family History Family History: Family History Father Advanced cirrhosis of liver Alcoholic cirrhosis Substance use disorder Mother Dementia Maternal Grandfather Substance use disorder Sister Substance use disorder Maternal Grandfather Colon cancer Prostate cancer <CHI Uriarte - Last Filed: 08/19/22 17:23> Social History Social History: Social History Household Members: Significant Other and Other Household Members Other:: Cousin Housing: House Do you presently have visiting nurse or other home services: No Alcohol intake: unknown Patient Tobacco Use Status: Former Tobacco user Tobacco use type: Cigarette Years Smoked: quit 10 years ago e-Cigarette/Vaping Use: Never Used Second Hand Smoke Exposure: No Substance Use Type: Marijuana Advance Directives: Yes Advance Directives on File: Yes Advance Directives Date on File: 10/23/21 service: No Current occupational status: 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 <CHI Uriarte - Last Filed: 08/19/22 17:23> Physical Exam ED Vital Signs: Vital Signs - 24 hr 08/19/22 10:43 08/19/22 10:57 08/19/22 17:14 Temperature 96.5 F L 98.4 F 98.9 F Pulse Rate 116 H 116 H 102 H Respiratory Rate 16 18 Blood Pressure 240/192 H 132/95 H 142/102 H Pulse Oximetry 97 99 96 Oxygen Delivery Method Room Air Room Air Room Air BMI result Body Mass Index 31.3 <CHI Uriarte - Last Filed: 08/19/22 17:23> Vital Signs - 24 hr 08/19/22 10:43 08/19/22 10:57 08/19/22 17:14 Temperature 96.5 F L 98.4 F 98.9 F Pulse Rate 116 H 116 H 102 H Respiratory Rate 16 18 Blood Pressure 240/192 H 132/95 H 142/102 H Pulse Oximetry 97 99 96 Oxygen Delivery Method Room Air Room Air Room Air BMI result Body Mass Index 31.3 <Elliot Burrell - Last Filed: 08/19/22 17:46> Const Other: Anxious appearing <Betty Rangel PA - Last Filed: 08/19/22 17:23> General: cooperative and comfortable <Betty Rangel PA - Last Filed: 08/19/22 17:23> Orientation/consciousness: patient oriented x3 <Betty Rangel PA - Last Filed: 08/19/22 17:23> Limitations: no limitations <Betty Rangel PA - Last Filed: 08/19/22 17:23> HENMT Head: Yes normal to inspection, Yes normocephalic and Yes atraumatic <Betty Rangel PA - Last Filed: 08/19/22 17:23> Ears: hearing grossly normal bilaterally <Betty Rangel PA - Last Filed: 08/19/22 17:23> General nose exam: Normal external nose present <Betty Rangel PA - Last Filed: 08/19/22 17:23> Face and sinus: Yes normal facial exam <Betty Rangel PA - Last Filed: 08/19/22 17:23> Mouth: Normal oral and palatal mucosa present, oropharynx normal and moist mucous membranes <Betty Rangel PA - Last Filed: 08/19/22 17:23> Throat: Yes posterior oropharynx normal <Betty Rangel PA - Last Filed: 08/19/22 17:23> Eyes General: appearance normal, both eyes and all related structures <Betty Rangel PA - Last Filed: 08/19/22 17:23> Eyelids: Yes eyelids normal <Betty Rangel PA - Last Filed: 08/19/22 17:23> Conjunctivae: conjunctivae normal <Betty Rangel PA - Last Filed: 08/19/22 17:23> Sclerae: sclerae normal <Betty Rangel PA - Last Filed: 08/19/22 17:23> Pupils: Equal, round and reactive pupils present <Betty Rangel PA - Last Filed: 08/19/22 17:23> EOM: EOMs intact bilaterally <Betty [place]ina [place] - Last Filed: 08/19/22 17:23> Neck Neck: Yes normal visual inspection, Yes full ROM and Yes no lymphadenopathy <Betty Ranegl [place] - Last Filed: 08/19/22 17:23> Lymphatic: no lymphadenopathy noted <Betty Rangel [place] - Last Filed: 08/19/22 17:23> Chest Chest palpation & inspection: normal inspection of the chest <Betty Rangel [place] - Last Filed: 08/19/22 17:23> Resp Effort & Inspection: normal respiratory effort and able to speak in complete sentences <Betty Rangel [facility] Last Filed: 08/19/22 17:23> Auscultation: clear to auscultation bilaterally, no crackles, no rales, no rhonchi and no wheezes <Betty Rangel [facility] Last Filed: 08/19/22 17:23> Cardio Rate: regular rate <Betty Rangel [place] - Last Filed: 08/19/22 17:23> Rhythm: regular rhythm <Betty Rangel [place] - Last Filed: 08/19/22 17:23> Heart sounds: S1 normal heart sound present and S2 normal heart sound present <Betty Rangel [place] - Last Filed: 08/19/22 17:23> GI Inspection: Yes normal to inspection <Betty Rangel [facility] Last Filed: 08/19/22 17:23> Skin General skin exam: no rashes or lesions noted <Betty Rangel [place] - Last Filed: 08/19/22 17:23> Trauma: no lacerations or abrasions <Betty Rangel [place] - Last Filed: 08/19/22 17:23> Wounds: no wounds <Betty Rangel [place] - Last Filed: 08/19/22 17:23> Neuro General: patient oriented x3 and moves all extremities <Betty Rangel PA - Last Filed: 08/19/22 17:23> Cranial nerves: Yes Equal, round and reactive pupils present <Betty Rangel [place] - Last Filed: 08/19/22 17:23> Extrem General: Yes normal to inspection <Betty Rangel [place] - Last Filed: 08/19/22 17:23> Right upper extremity: normal to inspection <CHI Uriarte - Last Filed: 08/19/22 17:23> Left upper extremity: normal to inspection <CHI Uriarte - Last Filed: 08/19/22 17:23> Right lower extremity: normal to inspection <CHI Uriarte - Last Filed: 08/19/22 17:23> Left lower extremity: normal to inspection <CHI Uriarte - Last Filed: 08/19/22 17:23> Course Course Course Narrative: 5:45 p.m. patient [facility] for 11:00 p.m. tonnicole. His girlfriend is bedside within and she will take the patient there herself. The patient is resting comfortably at this time. He is stable for discharge <Elliot Burrell - Last Filed: 08/19/22 17:46> Reevaluation(s) Reevaluation #1: Patient's symptoms not improving after Ativan, clonidine 0.1 mg p.o. ordered. 1L IV fluids, ativan 1mg IV ordered. Pt requesting heart burn medication. <CHI Uriarte - Last Filed: 08/19/22 17:23> Reevaluation #2: Patient asleep, resting comfortably in stretcher. <CHI Uriarte - Last Filed: 08/19/22 17:23> Time: 13:39 <CHI Uriarte - Last Filed: 08/19/22 17:23> Reevaluation #3: Patient resting comfortably, still asleep in stretcher, discussed case with recovery technical support professional, who is looking into getting him into [facility]. <CHI Uriarte - Last Filed: 08/19/22 17:23> Time: 16:00 <CHI Uriarte - Last Filed: 08/19/22 17:23> Additional Reevaluation(s): Patient is feeling better. Still mildly shaky, will administer Librium 50 mg p.o. Patient has a bed at [facility] just waiting for patient to obtain physical home meds to transfer patient. Patient is currently asymptomatic and would like to be discharged to [facility], at bedside providing patient's at home medications. Vital signs stable. Sign-out given to Elliot burrell PA-C pending transfer to [facility]. <CHI Uriarte Last Filed: 08/19/22 17:23> Medical Decision Making Medical Decision Making [facility] Narrative: 57 y/o M, with a past medical history of alcohol abuse, hypertension, hyperlipidemia, GERD, diabetes, and hepatitis, who presents to the emergency department seeking etoh detox. Patient feeling anxious, with nausea and some chest pain and heartburn. Patient hypertensive at 132/95, pulse 116, respirations 16. Oxygen saturation 99% on RA. Plan: Ativan 2mg PO and Zofran 4mg PO. <CHI Uriarte Last Filed: 08/19/22 17:23> Differential Diagnosis Differential Diagnoses: The differential diagnosis associated with the presentation includes <CHI Uriarte Last Filed: 08/19/22 17:23> ETOH withdrawal, delirium tremens, gastritis, suicidal ideation, depression, anxiety, ACS <CHI Uriarte Last Filed: 08/19/22 17:23> Admission/Observation Consideration of admission/observation: Escalation of care including admission/observation considered <CHI Uriarte Last Filed: 08/19/22 17:23> Patient with multiple hospitalizations for alcohol use disorder with alcohol withdrawal. Last hospitalization was 06/06/2022 until 06/09/2022 <CHI Uriarte - Last Filed: 08/19/22 17:23> Consult Healthcare Provider Management of the patient was discussed with: Hospitalist <CHI Uriarte Last Filed: 08/19/22 17:23> Lab Data [facility] Lab Attestation statement: I reviewed the patient's lab results. <CHI Uriarte - Last Filed: 08/19/22 17:23> Result Diagrams: 08/19/22 11:17 08/19/22 11:17 <CHI Uriarte - Last Filed: 08/19/22 17:23> Labs: Lab Results 08/19/22 08/19/22 08/19/22 Range/Units 11:17 11:17 16:37 WBC 11.7 H (4.8-10.8) X10*3/uL RBC 5.29 D (4.60-5.80) X10*6/uL Hgb 15.9 D (14.0-18.0) g/dl Hct 43.5 D (42.0-52.0) % MCV 82.2 (80.0-98.0) fL MCH 30.1 (27.0-33.0) pg MCHC 36.6 H (31.0-36.0) g/dl RDW 13.5 (11.0-16.0) % Plt Count 338 D (160-400) X10*3/uL MPV 8.3 L (9.4-12.4) fL Immature Gran % (Auto) 0.3 (0.0-0.4) % Neut % (Auto) 65.9 (45-73) % Lymph % (Auto) 26.1 (20-40) % [place] % (Auto) 7.1 (2-11) % Eos % (Auto) 0.3 (0-4) % Baso % (Auto) 0.3 (0-2) % Lymph # (Auto) 3.1 (1.2-4.9) X10*3/uL [place] # (Auto) 0.8 (0.1-1.2) X10*3/uL Eos # (Auto) 0.0 (0.0-0.4) X10*3/uL Baso # (Auto) 0.0 (0.0-0.2) X10*3/uL Abs Immat Gran (auto) 0.03 (0.00-0.03) X10*3/uL Absolute Neuts (auto) 7.7 (2.0-8.3) x10*3/uL Absolute Nucleated RBC 0.000 (0.0-0.012) X10*3/uL Nucleated RBC % (auto) 0.0 (0.0-0.2) /100WBC Sodium 137 (135-145) mmol/L Potassium 4.3 (3.3-5.1) mmol/L Chloride 96 (96-108) mmol/L Carbon Dioxide 26 (22-29) mmol/L Anion Gap 19 (12-20) BUN 11 (9-16) mg/dL Creatinine 0.89 (0.5-1.4) mg/dL Estim Creat Clear Calc 100.7 Estimated GFR > 60 Random Glucose 236 H (60-115) mg/dL Calcium 9.9 D (8.4-10.2) mg/dL Magnesium 2.0 (1.6-2.6) mg/dL Total Bilirubin 0.9 (0.0-1.0) mg/dL Direct Bilirubin 0.2 (0.0-0.5) mg/dL AST 33 (5-37) U/L ALT 48 H (0-40) U/L Alkaline Phosphatase 72 (39-117) U/L Troponin I High Sens (<3.5-35.0) ng/L Total Protein 8.1 H (6.5-8.0) g/dL Albumin 5.2 H (3.5-5.0) g/dL Lipase 46 (8-78) U/L Urine Color Yellow Urine Appearance Clear Urine pH 5.5 (5.0-9.0) Ur Specific [place] 1.020 (1.005-1.025) Urine Protein 100 (2+) H (Neg-Trace) mg/dL Urine Glucose (UA) Negative (Negative) mg/dL Urine Ketones Trace (Negative) mg/dL Urine Blood Negative (Negative) Urine Nitrite Negative (Negative) Ur Leukocyte Esterase Negative (Negative) Urine RBC 0-2 (0-2) /HPF Urine WBC 0-5 (0-5) /HPF Ur Squamous Epith Cells 0-2 (0-2) /HPF Urine Bacteria None Seen (None Seen) Hyaline Casts 0-2 (0-2) /LPF Urine Opiates Screen (Not Detect) Urine Fentanyl Screen (Not Detect) Ur Barbiturates Screen (Not Detect) Ur Phencyclidine Scrn (Not Detect) Ur Amphetamines Screen (Not Detect) U Benzodiazepines Scrn (Not Detect) Urine Cocaine Screen (Not Detect) U Marijuana (THC) Screen (Not Detect) Ethyl Alcohol 143 mg/dL 08/19/22 08/19/22 Range/Units 16:37 16:42 WBC (4.8-10.8) X10*3/uL RBC (4.60-5.80) X10*6/uL Hgb (14.0-18.0) g/dl Hct (42.0-52.0) % MCV (80.0-98.0) fL MCH (27.0-33.0) pg MCHC (31.0-36.0) g/dl RDW (11.0-16.0) % Plt Count (160-400) X10*3/uL MPV (9.4-12.4) fL Immature Gran % (Auto) (0.0-0.4) % Neut % (Auto) (45-73) % Lymph % (Auto) (20-40) % [place] % (Auto) (2-11) % Eos % (Auto) (0-4) % Baso % (Auto) (0-2) % Lymph # (Auto) (1.2-4.9) X10*3/uL [place] # (Auto) (0.1-1.2) X10*3/uL Eos # (Auto) (0.0-0.4) X10*3/uL Baso # (Auto) (0.0-0.2) X10*3/uL Abs Immat Gran (auto) (0.00-0.03) X10*3/uL Absolute Neuts (auto) (2.0-8.3) x10*3/uL Absolute Nucleated RBC (0.0-0.012) X10*3/uL Nucleated RBC % (auto) (0.0-0.2) /100WBC Sodium (135-145) mmol/L Potassium (3.3-5.1) mmol/L Chloride (96-108) mmol/L Carbon Dioxide (22-29) mmol/L Anion Gap (12-20) BUN (9-16) mg/dL Creatinine (0.5-1.4) mg/dL Estim Creat Clear Calc Estimated GFR Random Glucose (60-115) mg/dL Calcium (8.4-10.2) mg/dL Magnesium (1.6-2.6) mg/dL Total Bilirubin (0.0-1.0) mg/dL Direct Bilirubin (0.0-0.5) mg/dL AST (5-37) U/L ALT (0-40) U/L Alkaline Phosphatase (39-117) U/L Troponin I High Sens 3.3 (<3.5-35.0) ng/L Total Protein (6.5-8.0) g/dL Albumin (3.5-5.0) g/dL Lipase (8-78) U/L Urine Color Urine Appearance Urine pH (5.0-9.0) Ur Specific [place] (1.005-1.025) Urine Protein (Neg-Trace) mg/dL Urine Glucose (UA) (Negative) mg/dL Urine Ketones (Negative) mg/dL Urine Blood (Negative) Urine Nitrite (Negative) Ur Leukocyte Esterase (Negative) Urine RBC (0-2) /HPF Urine WBC (0-5) /HPF Ur Squamous Epith Cells (0-2) /HPF Urine Bacteria (None Seen) Hyaline Casts (0-2) /LPF Urine Opiates Screen Not Detected (Not Detect) Urine Fentanyl Screen Not Detected (Not Detect) Ur Barbiturates Screen POSITIVE H (Not Detect) Ur Phencyclidine Scrn Not Detected (Not Detect) Ur Amphetamines Screen Not Detected (Not Detect) U Benzodiazepines Scrn Not Detected (Not Detect) Urine Cocaine Screen Not Detected (Not Detect) U Marijuana (THC) Screen Not Detected (Not Detect) Ethyl Alcohol mg/dL <CHI Uriarte - Last Filed: 08/19/22 17:23> Lab Results 08/19/22 08/19/22 08/19/22 Range/Units 11:17 11:17 16:37 WBC 11.7 H (4.8-10.8) X10*3/uL RBC 5.29 D (4.60-5.80) X10*6/uL Hgb 15.9 D (14.0-18.0) g/dl Hct 43.5 D (42.0-52.0) % MCV 82.2 (80.0-98.0) fL MCH 30.1 (27.0-33.0) pg MCHC 36.6 H (31.0-36.0) g/dl RDW 13.5 (11.0-16.0) % Plt Count 338 D (160-400) X10*3/uL MPV 8.3 L (9.4-12.4) fL Immature Gran % (Auto) 0.3 (0.0-0.4) % Neut % (Auto) 65.9 (45-73) % Lymph % (Auto) 26.1 (20-40) % [place] % (Auto) 7.1 (2-11) % Eos % (Auto) 0.3 (0-4) % Baso % (Auto) 0.3 (0-2) % Lymph # (Auto) 3.1 (1.2-4.9) X10*3/uL [place] # (Auto) 0.8 (0.1-1.2) X10*3/uL Eos # (Auto) 0.0 (0.0-0.4) X10*3/uL Baso # (Auto) 0.0 (0.0-0.2) X10*3/uL Abs Immat Gran (auto) 0.03 (0.00-0.03) X10*3/uL Absolute Neuts (auto) 7.7 (2.0-8.3) x10*3/uL Absolute Nucleated RBC 0.000 (0.0-0.012) X10*3/uL Nucleated RBC % (auto) 0.0 (0.0-0.2) /100WBC Sodium 137 (135-145) mmol/L Potassium 4.3 (3.3-5.1) mmol/L Chloride 96 (96-108) mmol/L Carbon Dioxide 26 (22-29) mmol/L Anion Gap 19 (12-20) BUN 11 (9-16) mg/dL Creatinine 0.89 (0.5-1.4) mg/dL Estim Creat Clear Calc 100.7 Estimated GFR > 60 Random Glucose 236 H (60-115) mg/dL Calcium 9.9 D (8.4-10.2) mg/dL Magnesium 2.0 (1.6-2.6) mg/dL Total Bilirubin 0.9 (0.0-1.0) mg/dL Direct Bilirubin 0.2 (0.0-0.5) mg/dL AST 33 (5-37) U/L ALT 48 H (0-40) U/L Alkaline Phosphatase 72 (39-117) U/L Troponin I High Sens (<3.5-35.0) ng/L Total Protein 8.1 H (6.5-8.0) g/dL Albumin 5.2 H (3.5-5.0) g/dL Lipase 46 (8-78) U/L Urine Color Yellow Urine Appearance Clear Urine pH 5.5 (5.0-9.0) Ur Specific [place] 1.020 (1.005-1.025) Urine Protein 100 (2+) H (Neg-Trace) mg/dL Urine Glucose (UA) Negative (Negative) mg/dL Urine Ketones Trace (Negative) mg/dL Urine Blood Negative (Negative) Urine Nitrite Negative (Negative) Ur Leukocyte Esterase Negative (Negative) Urine RBC 0-2 (0-2) /HPF Urine WBC 0-5 (0-5) /HPF Ur Squamous Epith Cells 0-2 (0-2) /HPF Urine Bacteria None Seen (None Seen) Hyaline Casts 0-2 (0-2) /LPF Urine Opiates Screen (Not Detect) Urine Fentanyl Screen (Not Detect) Ur Barbiturates Screen (Not Detect) Ur Phencyclidine Scrn (Not Detect) Ur Amphetamines Screen (Not Detect) U Benzodiazepines Scrn (Not Detect) Urine Cocaine Screen (Not Detect) U Marijuana (THC) Screen (Not Detect) Ethyl Alcohol 143 mg/dL 08/19/22 08/19/22 Range/Units 16:37 16:42 WBC (4.8-10.8) X10*3/uL RBC (4.60-5.80) X10*6/uL Hgb (14.0-18.0) g/dl Hct (42.0-52.0) % MCV (80.0-98.0) fL MCH (27.0-33.0) pg MCHC (31.0-36.0) g/dl RDW (11.0-16.0) % Plt Count (160-400) X10*3/uL MPV (9.4-12.4) fL Immature Gran % (Auto) (0.0-0.4) % Neut % (Auto) (45-73) % Lymph % (Auto) (20-40) % [place] % (Auto) (2-11) % Eos % (Auto) (0-4) % Baso % (Auto) (0-2) % Lymph # (Auto) (1.2-4.9) X10*3/uL [place] # (Auto) (0.1-1.2) X10*3/uL Eos # (Auto) (0.0-0.4) X10*3/uL Baso # (Auto) (0.0-0.2) X10*3/uL Abs Immat Gran (auto) (0.00-0.03) X10*3/uL Absolute Neuts (auto) (2.0-8.3) x10*3/uL Absolute Nucleated RBC (0.0-0.012) X10*3/uL Nucleated RBC % (auto) (0.0-0.2) /100WBC Sodium (135-145) mmol/L Potassium (3.3-5.1) mmol/L Chloride (96-108) mmol/L Carbon Dioxide (22-29) mmol/L Anion Gap (12-20) BUN (9-16) mg/dL Creatinine (0.5-1.4) mg/dL Estim Creat Clear Calc Estimated GFR Random Glucose (60-115) mg/dL Calcium (8.4-10.2) mg/dL Magnesium (1.6-2.6) mg/dL Total Bilirubin (0.0-1.0) mg/dL Direct Bilirubin (0.0-0.5) mg/dL AST (5-37) U/L ALT (0-40) U/L Alkaline Phosphatase (39-117) U/L Troponin I High Sens 3.3 (<3.5-35.0) ng/L Total Protein (6.5-8.0) g/dL Albumin (3.5-5.0) g/dL Lipase (8-78) U/L Urine Color Urine Appearance Urine pH (5.0-9.0) Ur Specific [place] (1.005-1.025) Urine Protein (Neg-Trace) mg/dL Urine Glucose (UA) (Negative) mg/dL Urine Ketones (Negative) mg/dL Urine Blood (Negative) Urine Nitrite (Negative) Ur Leukocyte Esterase (Negative) Urine RBC (0-2) /HPF Urine WBC (0-5) /HPF Ur Squamous Epith Cells (0-2) /HPF Urine Bacteria (None Seen) Hyaline Casts (0-2) /LPF Urine Opiates Screen Not Detected (Not Detect) Urine Fentanyl Screen Not Detected (Not Detect) Ur Barbiturates Screen POSITIVE H (Not Detect) Ur Phencyclidine Scrn Not Detected (Not Detect) Ur Amphetamines Screen Not Detected (Not Detect) U Benzodiazepines Scrn Not Detected (Not Detect) Urine Cocaine Screen Not Detected (Not Detect) U Marijuana (THC) Screen Not Detected (Not Detect) Ethyl Alcohol mg/dL <Elliot Burrell - Last Filed: 08/19/22 17:46> Radiology Impression Discussion of test interpretation with radiology: I have reviewed the radiologist's reading. <CHI Uriarte - Last Filed: 08/19/22 17:23> External Record Review External record reviewed: Inpatient record, Office record, Outpatient record, Prior outpatient labs, Prior outpatient radiology, Primary care record and Outside ED record <CHI Uriarte - Last Filed: 08/19/22 17:23> Medications Administered Discontinued Medications Generic Name Dose Route Start Last Admin Trade Name Freq PRN Reason Stop Dose Admin Al Hydroxide/Mg Hydroxide 15 ml 08/19/22 12:28 08/19/22 12:43 Magnesium Hydrox/Alum Hydrox 30 Ml Oral.Susp PO 08/19/22 12:29 15 ml ONCE ONE Administration Chlordiazepoxide HCl 50 mg 08/19/22 16:18 08/19/22 17:09 Chlordiazepoxide Hcl 25 Mg Capsule PO 08/19/22 16:19 50 mg ONCE ONE Administration Clonidine HCl 0.1 mg 08/19/22 11:37 08/19/22 11:48 Clonidine Hcl 0.1 Mg Tablet PO 08/19/22 11:38 0.1 mg ONCE ONE Administration Protocol Sodium Chloride 1,000 mls @ 999 mls/hr 08/19/22 12:30 08/19/22 15:08 Ns IVCONT 08/19/22 14:30 Infused .Q1H1M MAILE Infusion Lorazepam 2 mg 08/19/22 11:02 08/19/22 11:12 Lorazepam 1 Mg Tablet PO 08/19/22 11:03 2 mg ONCE ONE Administration Lorazepam 1 mg 08/19/22 12:15 08/19/22 12:43 Lorazepam 2 Mg/Ml Vial IVPUSH 08/19/22 12:16 1 mg ONCE ONE Administration Ondansetron HCl 4 mg 08/19/22 11:02 08/19/22 11:12 Ondansetron Odt 4 Mg Tab.Rapdis TRANSLINGU 08/19/22 11:03 4 mg ONCE ONE Administration <CHI Uriarte - Last Filed: 08/19/22 17:23> Medications Administered Discontinued Medications Generic Name Dose Route Start Last Admin Trade Name Freq PRN Reason Stop Dose Admin Al Hydroxide/Mg Hydroxide 15 ml 08/19/22 12:28 08/19/22 12:43 Magnesium Hydrox/Alum Hydrox 30 Ml Oral.Susp PO 08/19/22 12:29 15 ml ONCE ONE Administration Chlordiazepoxide HCl 50 mg 08/19/22 16:18 08/19/22 17:09 Chlordiazepoxide Hcl 25 Mg Capsule PO 08/19/22 16:19 50 mg ONCE ONE Administration Clonidine HCl 0.1 mg 08/19/22 11:37 08/19/22 11:48 Clonidine Hcl 0.1 Mg Tablet PO 08/19/22 11:38 0.1 mg ONCE ONE Administration Protocol Sodium Chloride 1,000 mls @ 999 mls/hr 08/19/22 12:30 08/19/22 15:08 Ns IVCONT 08/19/22 14:30 Infused .Q1H1M [facility]ILE Infusion Lorazepam 2 mg 08/19/22 11:02 08/19/22 11:12 Lorazepam 1 Mg Tablet PO 08/19/22 11:03 2 mg ONCE ONE Administration Lorazepam 1 mg 08/19/22 12:15 08/19/22 12:43 Lorazepam 2 Mg/Ml Vial IVPUSH 08/19/22 12:16 1 mg ONCE ONE Administration Ondansetron HCl 4 mg 08/19/22 11:02 08/19/22 11:12 Ondansetron Odt 4 Mg Tab.Rapdis TRANSLINGU 08/19/22 11:03 4 mg ONCE ONE Administration <Elliot Burrell - Last Filed: 08/19/22 17:46> Discharge Plan Discharge Clinical Impression: Alcohol withdrawal <CHI Uriarte - Last Filed: 08/19/22 17:23> Patient Disposition: Home, Self-Care <CHI Uriarte - Last Filed: 08/19/22 17:23> Instructions: Alcohol Withdrawal (ED) <CHI Uriarte - Last Filed: 08/19/22 17:23> Additional Instructions: Please go to [facility]. If any new or worsening symptoms occur, please return for further evaluation. <CHI Uriarte - Last Filed: 08/19/22 17:23> Prescriptions: No Action metformin 500 mg tablet 500 mg PO BID 30 Days Qty: 60 3RF rosuvastatin 20 mg tablet 20 mg PO BEDTIME 30 Days Qty: 30 3RF hydroxyzine pamoate 50 mg capsule 2 cap PO BEDTIME PRN (Reason: insomnia) folic acid 1 mg Tablet 1 mg PO DAILY Qty: 30 0RF thiamine mononitrate (vit B1) 100 mg Tablet 100 mg PO DAILY Qty: 30 0RF naltrexone 50 mg tablet 50 mg PO DAILY Qty: 30 0RF hydroxyzine pamoate 50 mg capsule 100 mg PO BEDTIME PRN (Reason: insomnia) Qty: 30 0RF paroxetine HCl 40 mg tablet 40 mg PO DAILY Qty: 30 0RF quetiapine 100 mg tablet 200 mg PO BEDTIME PRN (Reason: anxiety) Qty: 60 0RF labetalol 300 mg tablet 300 mg PO BID multivitamin Tablet 1 tab PO DAILY primidone 50 mg tablet 100 mg PO BID 30 Days Qty: 120 6RF <CHI Uriarte - Last Filed: 08/19/22 17:23>
[2022-08-19] MEDS: LORazepam 1 MG TABLET 2 MG PO ×2 (11:12→18:24)
[2022-08-19] MEDS: Ondansetron ODT 4 MG TAB.RAPDIS TRANSLINGU (11:12)
[2022-08-19 11:25] LABS: MANUAL DIFF FLAG NO
[2022-08-19 11:27] LABS: Basophils Percent Auto 0.3 % (0-2); Eosinophils Percent Auto 0.3 % (0-4); Hematocrit 43.5 % (42.0-52.0); Hemoglobin 15.9 g/dl (14.0-18.0); Imm Gran Abs Auto 0.03 X10*3/uL (0.00-0.03); Imm Gran Pct Auto 0.3 % (0.0-0.4); Lymphocytes Absolute Auto 3.1 X10*3/uL (1.2-4.9); Lymphocytes Percent Auto 26.1 % (20-40); Mean Corpuscular HGB Conc 36.6 g/dl (31.0-36.0); Mean Corpuscular Hemoglobin 30.1 pg (27.0-33.0); Mean Corpuscular Volume 82.2 fL (80.0-98.0); Mean Platelet Volume 8.3 fL (9.4-12.4); Monocytes Absolute Auto 0.8 X10*3/uL (0.1-1.2); Monocytes Percent Auto 7.1 % (2-11); Neutrophils Absolute Auto 7.7 x10*3/uL (2.0-8.3); Neutrophils Percent Auto 65.9 % (45-73); Platelet Count 338 X10*3/uL (160-400); Red Blood Count 5.29 X10*6/uL (4.60-5.80); Red Cell Distribution Width 13.5 % (11.0-16.0); White Blood Count 11.7 X10*3/uL (4.8-10.8)
[2022-08-19 11:45] LABS: Alanine Aminotransferase 48 U/L (0-40); Albumin Level 5.2 g/dL (3.5-5.0); Alkaline Phosphatase 72 U/L (39-117); Anion Gap 19 (12-20); Aspartate Amino Transferase 33 U/L (5-37); Bilirubin Direct 0.2 mg/dL (0.0-0.5); Bilirubin Total 0.9 mg/dL (0.0-1.0); Blood Urea Nitrogen 11 mg/dL (9-16); Calcium 9.9 mg/dL (8.4-10.2); Carbon Dioxide 26 mmol/L (22-29); Chloride 96 mmol/L (96-108); Creatinine Clr Calc Pharmacy 100.7; Estimated Glomerular Filt Rate > 60; Ethanol 143 mg/dL; Glucose Random 236 mg/dL (60-115); Lipase 46 U/L (8-78); Potassium 4.3 mmol/L (3.3-5.1); Sodium 137 mmol/L (135-145); Total Protein 8.1 g/dL (6.5-8.0)
[2022-08-19] MEDS: cloNIDine HCL 0.1 MG TABLET PO (11:48)
--- NOTE | 2022-08-19 12:17 | ECG_ITS ---
Test Reason : chest pain Blood Pressure : / mmHG Vent. Rate : 105 BPM Atrial Rate : 105 BPM P-R Int : 164 ms QRS Dur : 090 ms QT Int : 336 ms P-R-T Axes : 017 -17 018 degrees QTc Int : 444 ms Sinus tachycardia Cannot rule out Anterior infarct , age undetermined Abnormal ECG When compared with ECG of 16-NOV-2021 10:25, Vent. rate has increased BY 43 BPM Referred By: Betty Rangel Electronically Signed By:BIANCA SAENZ
[2022-08-19] MEDS: 0.9 % Sodium Chloride 1,000 ML 999 ML IVCONT ×2 (12:43→14:05)
[2022-08-19] MEDS: LORazepam 2 MG/ML VIAL 1 MG IVPUSH (12:43)
[2022-08-19] MEDS: Magnesium Hydrox/Alum Hydrox 30 ML ORAL.SUSP 15 ML PO (12:43)
--- NOTE | 2022-08-19 13:24 | MHC.RECOVSUP ---
Met with pt in [facility] for potential ATS bed search. Pt reports drikning about 20 beers and some nips a day with last drink this morning. Pt is interested in ATS, bed search in process.
--- NOTE | 2022-08-19 16:49 | MHC.RECOVSUP ---
Ilir informed pt can do a phone screen and intake today if he can get his medications. Spoke with pts spomendoza and she will be bringing his medications here. will call for phone screen once medications are here.
[2022-08-19 16:52] LABS: Appearance Urine Clear; Color Urine Yellow; Glucose Urine UA Negative (Negative); Leukocyte Esterase Urine Negative (Negative); Nitrite Urine Negative (Negative); PH 5.5 (5.0-9.0); UMIC TRIGGER UACC YES; Urine Blood Negative (Negative); Urine Ketones Trace mg/dL (Negative); Urine Protein 100 (2+) mg/dL (Neg-Trace)
[2022-08-19 16:57] LABS: Bacteria Urine None Seen (None Seen); Hyaline Casts Urine 0-2 /LPF (0-2); RBC Urine 0-2 /HPF (0-2); Squamous Epithelial Cell Urine 0-2 /HPF (0-2); WBC Urine 0-5 /HPF (0-5)
[2022-08-19 17:01] LABS: Amphetamine Screen Urine Not Detected (Not Detect); Barbiturates, Urine POSITIVE (Not Detect); Benzodiazepines Screen Urine Not Detected (Not Detect); Cannabinoid Screen Urine Not Detected (Not Detect); Cocaine Screen Urine Not Detected (Not Detect); Opiate Screen Urine Not Detected (Not Detect); Phencyclidine Screen Urine Not Detected (Not Detect)
[2022-08-19 17:08] LABS: Fentanyl, urine Not Detected (Not Detect)
[2022-08-19] MEDS: chlordiazePOXIDE HCl 25 MG CAPSULE 50 MG PO (17:09)
[2022-08-19 17:13] LABS: Troponin-I High Sensitivity 3.3 ng/L (<3.5-35.0)
[2022-08-19 17:14] VITALS: BP 142/102; PULSE 102; RESP 18; TEMP 37.2; O2SAT 96
--- NOTE | 2022-08-19 17:59 | MHC.RECOVSUP ---
Pt accepted to [facility] for 11pm intake. pt is going home with his spouse and she will drive him for his 11pm intake. Provider is aware.
== END 2022-08-19 18:33 | disposition home or self-care (01) ==
PROVIDERS: Physician Assistant Medical; Emergency Provider Emergency Medicine; PCP Nurse Practitioner Family
DX: R07.89 Other chest pain (principal); F41.9 Anxiety disorder, unspecified; F10.239 Alcohol dependence with withdrawal, unspecified; I10 Essential (primary) hypertension; Y90.6 Blood alcohol level of 120-199 mg/100 ml; Z87.891 Personal history of nicotine dependence; Z79.899 Other long term (current) drug therapy
CPT/HCPCS: 36415; 71046; 80048; 80076; 80307; 81001; 83690; 83735; 84484; 85025; 93005; 96361; 96374; 99284; J2060

== ENCOUNTER 2022-09-04 06:14 | Inpatient (IN) | payer OTHER, SELFPAY ==
[2022-09-04] VITALS (9 sets, daily range): BP systolic 141–191; BP diastolic 82–111; PULSE 80–110; RESP 15–20; TEMP 36.1–37.4; O2SAT 96–98; BMI 31.3; BMI 33.5
--- NOTE | ~2022-09-04 | CT_ITS ---
EXAMINATION: CT ABDOMEN AND PELVIS WITH CONTRAST CLINICAL INFORMATION: Epigastric abdominal pain and hematemesis. COMPARISON: None available. TECHNIQUE: Multidetector volumetric images were obtained from the superior aspect of the liver through the pubic symphysis following administration 85 mL of Omnipaque 350 intravenous contrast. Sagittal and coronal reformatted images were obtained on the technologist's workstation. Oral contrast: No This CT examination was performed using dose optimization techniques as appropriate, variously including the following: *Automated exposure control *Adjustment of mA and/or kV according to patient size (this includes techniques or standardized protocols for targeted exams where dose is matched to indication/reason for exam; i.e. extremities or head) *Use of iterative reconstruction technique DLP: 665 mGy-cm FINDINGS: LUNG BASES: The lung bases are clear. The heart size is normal. LIVER, GALLBLADDER, AND BILIARY TREE: The liver is normal in size, shape, and attenuation. No focal hepatic lesion or biliary ductal dilatation is present. The gallbladder is unremarkable with no evidence of radiopaque gallstones, gallbladder wall thickening, or obvious pericholecystic inflammatory changes. PANCREAS: Unremarkable. SPLEEN: Unremarkable. ADRENAL GLANDS: Unremarkable. KIDNEYS AND URETERS: The kidneys are normal in size, shape, and attenuation. No hydronephrosis, hydroureter, or calculi seen. No perinephric stranding. BLADDER: The bladder is contracted and appears unremarkable. No bladder wall thickening seen. GASTROINTESTINAL TRACT: There is scattered stool and gas seen throughout the colon without any distention. The small bowel loops are normal caliber. Appendix is normal caliber. No free air or free fluid seen. ABDOMINAL WALL: No significant hernia is appreciated. LYMPH NODES: Normal. VASCULAR: Unremarkable. PELVIC VISCERA: Unremarkable. OSSEOUS STRUCTURES: No aggressive lytic or sclerotic process seen. CT/CT abdomen pelvis w IV con IMPRESSION: 1. No acute intra-abdominal process seen. 2. Mild constipation. Fleischner guidelines were followed.
[2022-09-04 06:35] LABS: Basophils Absolute Auto 0.1 X10*3/uL (0.0-0.2); Basophils Percent Auto 0.4 % (0-2); Eosinophils Absolute Auto 0.1 X10*3/uL (0.0-0.4); Eosinophils Percent Auto 0.4 % (0-4); Hematocrit 42.4 % (42.0-52.0); Hemoglobin 15.2 g/dl (14.0-18.0); Imm Gran Abs Auto 0.03 X10*3/uL (0.00-0.03); Imm Gran Pct Auto 0.2 % (0.0-0.4); Lymphocytes Absolute Auto 3.4 X10*3/uL (1.2-4.9); Lymphocytes Percent Auto 25.3 % (20-40); MANUAL DIFF FLAG NO; Mean Corpuscular HGB Conc 35.8 g/dl (31.0-36.0); Mean Corpuscular Hemoglobin 30.2 pg (27.0-33.0); Mean Corpuscular Volume 84.1 fL (80.0-98.0); Mean Platelet Volume 8.7 fL (9.4-12.4); Monocytes Absolute Auto 0.9 X10*3/uL (0.1-1.2); Monocytes Percent Auto 6.5 % (2-11); Neutrophils Absolute Auto 8.9 x10*3/uL (2.0-8.3); Neutrophils Percent Auto 67.2 % (45-73); Platelet Count 269 X10*3/uL (160-400); Red Blood Count 5.04 X10*6/uL (4.60-5.80); Red Cell Distribution Width 13.3 % (11.0-16.0); White Blood Count 13.3 X10*3/uL (4.8-10.8)
[2022-09-04 07:03] LABS: Alanine Aminotransferase 36 U/L (0-40); Albumin Level 5.1 g/dL (3.5-5.0); Alkaline Phosphatase 63 U/L (39-117); Anion Gap 22 (12-20); Aspartate Amino Transferase 29 U/L (5-37); Bilirubin Direct 0.2 mg/dL (0.0-0.5); Bilirubin Total 0.6 mg/dL (0.0-1.0); Blood Urea Nitrogen 10 mg/dL (9-16); Calcium 9.7 mg/dL (8.4-10.2); Carbon Dioxide 24 mmol/L (22-29); Chloride 97 mmol/L (96-108); Creatinine Clr Calc Pharmacy 109.3; Estimated Glomerular Filt Rate > 60; Ethanol 128 mg/dL; Glucose Random 164 mg/dL (60-115); Lipase 16 U/L (8-78); Potassium 4.3 mmol/L (3.3-5.1); Sodium 139 mmol/L (135-145); Total Protein 8.1 g/dL (6.5-8.0)
--- NOTE | 2022-09-04 07:29 | ED.ALCOHOL ---
HPI - Alcohol General Chief Complaint: ETOH/Substance Use Stated Complaint: Detoxing Time Seen by Provider: 09/04/22 07:20 Source: patient, RN notes reviewed and old records reviewed Mode of arrival: ambulatory History of Present Illness HPI narrative: 57-year-old male with a past medical history of alcohol abuse, hypertension, hyperlipidemia, GERD, diabetes, and hepatitis, who presents to the emergency department presenting to the ED requesting ETOH detox. Admits to drinking a 12 pack and pint of bourbon daily, last drink at 02:00AM. Patient reports epigastric abdominal pain, nausea, and girlfriend endorses hematemesis last night. Denies other illicit substances, diarrhea, hematuria, melena/bloody BMs, lightheadedness/dizziness MD complaint: alcohol withdrawal and alcohol dependence Related Data Home Medications Medication Instructions Recorded Confirmed multivitamin 1 tab PO DAILY 03/19/22 08/10/22 hydroxyzine pamoate 50 mg capsule 2 cap PO BEDTIME PRN insomnia 06/06/22 08/10/22 labetalol 300 mg tablet 300 mg PO BID 08/02/22 08/10/22 Previous Rx's Medication Instructions Recorded folic acid 1 mg tablet 1 mg PO DAILY #30 tabs 06/09/22 naltrexone 50 mg tablet 50 mg PO DAILY #30 tabs 06/09/22 thiamine mononitrate (vit B1) 100 100 mg PO DAILY #30 tabs 06/09/22 mg tablet hydroxyzine pamoate 50 mg capsule 100 mg PO BEDTIME PRN insomnia #30 07/22/22 caps paroxetine HCl 40 mg tablet 40 mg PO DAILY #30 tabs 07/22/22 quetiapine 100 mg tablet 200 mg PO BEDTIME PRN anxiety #60 07/22/22 tabs rosuvastatin 20 mg tablet 20 mg PO BEDTIME 30 days #30 tabs 08/02/22 primidone 50 mg tablet 100 mg PO BID 30 days #120 tabs 08/10/22 metformin 500 mg tablet 500 mg PO BID #180 tabs 08/29/22 Allergies Allergy/AdvReac Type Severity Reaction Status Date / Time No Known Allergies Allergy Verified 09/04/22 06:16 [No Known Allergies*] Review of Systems Review of Systems: Constitutional: No Fever, No Chills, No Fatigue, No Malaise ENT/Mouth: No Ear Pain, No sore throat, No Rhinorrhea, No Swallowing Difficulty Eyes: No Eye Pain, No Swelling, No Redness, No Vision Changes Cardiovascular: No Chest Pain, No SOB, No Edema, No Palpitations Respiratory: No Cough, No Sputum, No Dyspnea Gastrointestinal: + Nausea, + Vomiting, No Diarrhea, No Constipation, +Abdominal pain, +hematemesis, No Hematochezia, No Melena Genitourinary: No Dysuria, No Urinary Frequency, No Hematuria, No Urinary Incontinence/retention, No Urgency, No Flank Pain Musculoskeletal: No joint pain, No Myalgias, No Joint Swelling Skin: No Skin Lesions, No rash Neuro: No Weakness, No Dizziness, No Headache Yes all other systems are reviewed and are negative Constitutional: Constitutional: Reports as per [facility] Past Medical History Attestation statement: The following information was validated with the patient. Source: old records reviewed Medical History Acute hepatitis Alcohol abuse with withdrawal Alcohol use disorder, severe, dependence Alcohol withdrawal Alcoholic ketoacidosis Anxiety with depression Benign essential hypertension Diabetes mellitus Essential and other specified forms of tremor GERD without esophagitis History of alcoholic hepatitis HTN (hypertension) Hypersomnolence Insomnia Mixed hyperlipidemia Obesity (BMI 30-39.9) Recurrent moderate major depressive disorder with anxiety Snoring Surgical History H/O colonoscopy History of esophagogastroduodenoscopy (EGD) Family History Family History Father Advanced cirrhosis of liver Alcoholic cirrhosis Substance use disorder Mother Dementia Maternal Grandfather Substance use disorder Sister Substance use disorder Maternal Grandfather Colon cancer Prostate cancer Social History Social History Household Members: Significant Other and Other Household Members Other:: Cousin Housing: House Do you presently have visiting nurse or other home services: No Alcohol intake: current Alcohol intake frequency: 3 or more drinks per day Patient Tobacco Use Status: Former Tobacco user Tobacco use type: Cigarette Years Smoked: quit 10 years ago Smoked in Last 30 Days: No e-Cigarette/Vaping Use: Never Used Second Hand Smoke Exposure: No Use of substances other than those prescribed or required for medical reasons: No Substance Use Type: Marijuana Advance Directives: Yes Advance Directives on File: Yes Advance Directives Date on File: 10/23/21 service: No Current occupational status: 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 Physical Exam ED Vital Signs: Vital Signs - 24 hr 09/04/22 06:17 09/04/22 08:32 09/04/22 10:49 Temperature 97 F 98.0 F 99.4 F Pulse Rate 107 H 98 105 H Respiratory Rate 18 19 20 Blood Pressure 141/108 H 149/94 H 191/111 H Pulse Oximetry 96 98 97 Oxygen Delivery Method Room Air Room Air Room Air 09/04/22 12:16 Temperature Pulse Rate 110 H Respiratory Rate 18 Blood Pressure 176/96 H Pulse Oximetry 96 Oxygen Delivery Method Room Air BMI result Body Mass Index 31.3 Const General: cooperative, healthy appearing, no acute distress, alert and awake Orientation/consciousness: patient oriented x3 Limitations: no limitations HENMT Head: Yes normal to inspection and Yes atraumatic Ears: hearing grossly normal bilaterally General nose exam: Normal external nose present Face and sinus: Yes normal facial exam Eyes General: appearance normal, both eyes and all related structures EOM: EOMs intact bilaterally Neck Neck: Yes normal visual inspection and Yes no meningeal signs Resp Effort & Inspection: normal respiratory effort and no respiratory distress Auscultation: clear to auscultation bilaterally Cardio Rate: regular rate Heart sounds: S1 normal heart sound present and S2 normal heart sound present GI Inspection: Yes normal to inspection Palpation (GI): Soft to palpation, Tenderness to palpation present (GI) in the epigastrum, in the LUQ and in the RUQ; with no rebound tenderness, no guarding and not rigid Skin Rashes: no rashes Wounds: no wounds Neuro General: patient oriented x3, tone normal and no meningeal signs Gait exam (Neuro): Normal gait present Motor exam (neuro): Motor fasciculations not present and Tremors during motor activity present (Mildly tremulous) Extrem General: Yes normal to inspection Course Course Course Narrative: -0084--mild leukocytosis of 13.3 > likely reactive from emesis, still low suspicion for severe sepsis. Anion gap of 22 likely from ketosis/chronic ETOH -troponin negative. Occult stool positive. Ethanol 128 -0941--tachycardia improved with Ativan. lactic acidosis of 4.6 > likely from ketosis/ETOH and patient is on metformin. Still low suspicion for severe sepsis. -tox screen positive for barbiturates, benzos, cocaine, THC -CT suggestive of colonic diverticulosis, otherwise unremarkable. Will consult GI, Dr. Fernandez > Dr. Fernandez recommended continue PPI, clear liquids, and monitor. Plan to admit for further management. Phenobarb protocol initiated -1222--repeat lactic 2.9 Medical Decision Making Medical Decision Making MDM Narrative: 57-year-old male with a past medical history of alcohol abuse, hypertension, hyperlipidemia, GERD, diabetes, and hepatitis, who presents to the emergency department presenting to the ED requesting ETOH detox. reports epigastric abdominal pain, nausea, and hematemesis. On exam hypertensive, tachycardic, pacing, mildly tremulous, abdomen soft with upper tenderness, no rebound or guarding. Concern for ETOH withdrawal vs esophageal varices vs gastritis vs pancreatitis or cholecystitis vs GI bleed. Lower suspicion for appendicitis/diverticulitis or ACS at this time Low suspicion for severe sepsis. Vital sign abnormalities likely due to ETOH withdrawal Plan: EKG, labs, UA, drug screen, CT AP, p.o. Ativan, IVF Please refer to course for remaining clinical decision making, interpretation of labs/imaging results, and discussions with consultants and/or family members. Differential Diagnosis Differential Diagnoses: The differential diagnosis associated with the presentation includes As above Admission/Observation Consideration of admission/observation: Escalation of care including admission/observation considered Lab Data [facility] Lab Attestation statement: I reviewed the patient's lab results. 09/04/22 06:30 09/04/22 06:30 Labs: Lab Results 09/04/22 09/04/22 09/04/22 Range/Units 06:30 06:30 07:56 WBC 13.3 H (4.8-10.8) X10*3/uL RBC 5.04 (4.60-5.80) X10*6/uL Hgb 15.2 (14.0-18.0) g/dl Hct 42.4 (42.0-52.0) % MCV 84.1 (80.0-98.0) fL MCH 30.2 (27.0-33.0) pg MCHC 35.8 (31.0-36.0) g/dl RDW 13.3 (11.0-16.0) % Plt Count 269 (160-400) X10*3/uL MPV 8.7 L (9.4-12.4) fL Immature Gran % (Auto) 0.2 (0.0-0.4) % Neut % (Auto) 67.2 (45-73) % Lymph % (Auto) 25.3 (20-40) % Miner % (Auto) 6.5 (2-11) % Eos % (Auto) 0.4 (0-4) % Baso % (Auto) 0.4 (0-2) % Lymph # (Auto) 3.4 (1.2-4.9) X10*3/uL Miner # (Auto) 0.9 (0.1-1.2) X10*3/uL Eos # (Auto) 0.1 (0.0-0.4) X10*3/uL Baso # (Auto) 0.1 (0.0-0.2) X10*3/uL Abs Immat Gran (auto) 0.03 (0.00-0.03) X10*3/uL Absolute Neuts (auto) 8.9 H (2.0-8.3) x10*3/uL Absolute Nucleated RBC 0.000 (0.0-0.012) X10*3/uL Nucleated RBC % (auto) 0.0 (0.0-0.2) /100WBC PT (10.0-13.1) SEC INR (0.9-1.1) Sodium 139 (135-145) mmol/L Potassium 4.3 (3.3-5.1) mmol/L Chloride 97 (96-108) mmol/L Carbon Dioxide 24 (22-29) mmol/L Anion Gap 22 H (12-20) BUN 10 (9-16) mg/dL Creatinine 0.82 (0.5-1.4) mg/dL Estim Creat Clear Calc 109.3 Estimated GFR > 60 Random Glucose 164 H (60-115) mg/dL Lactic Acid (0.5-2.0) mmol/L Calcium 9.7 (8.4-10.2) mg/dL Magnesium 1.6 (1.6-2.6) mg/dL Total Bilirubin 0.6 (0.0-1.0) mg/dL Direct Bilirubin 0.2 (0.0-0.5) mg/dL AST 29 (5-37) U/L ALT 36 (0-40) U/L Alkaline Phosphatase 63 (39-117) U/L Troponin I High Sens < 2.7 (<3.5-35.0) ng/L Total Protein 8.1 H (6.5-8.0) g/dL Albumin 5.1 H (3.5-5.0) g/dL Lipase 16 (8-78) U/L Urine Color Urine Appearance Urine pH (5.0-9.0) Ur Specific [place] (1.005-1.025) Urine Protein (Neg-Trace) mg/dL Urine Glucose (UA) (Negative) mg/dL Urine Ketones (Negative) mg/dL Urine Blood (Negative) Urine Nitrite (Negative) Ur Leukocyte Esterase (Negative) Urine RBC (0-2) /HPF Urine WBC (0-5) /HPF Ur Squamous Epith Cells (0-2) /HPF Urine Bacteria (None Seen) Hyaline Casts (0-2) /LPF Stool Occult Blood (NEGATIVE) Salicylates < 5.0 L (15-30) mg/dL Urine Opiates Screen (Not Detect) Urine Fentanyl Screen (Not Detect) Acetaminophen < 17 (<30) mcg/mL Ur Barbiturates Screen (Not Detect) Ur Phencyclidine Scrn (Not Detect) Ur Amphetamines Screen (Not Detect) U Benzodiazepines Scrn (Not Detect) Urine Cocaine Screen (Not Detect) U Marijuana (THC) Screen (Not Detect) Ethyl Alcohol 128 mg/dL 09/04/22 09/04/22 09/04/22 Range/Units 07:56 09:07 09:08 WBC (4.8-10.8) X10*3/uL RBC (4.60-5.80) X10*6/uL Hgb (14.0-18.0) g/dl Hct (42.0-52.0) % MCV (80.0-98.0) fL MCH (27.0-33.0) pg MCHC (31.0-36.0) g/dl RDW (11.0-16.0) % Plt Count (160-400) X10*3/uL MPV (9.4-12.4) fL Immature Gran % (Auto) (0.0-0.4) % Neut % (Auto) (45-73) % Lymph % (Auto) (20-40) % Miner % (Auto) (2-11) % Eos % (Auto) (0-4) % Baso % (Auto) (0-2) % Lymph # (Auto) (1.2-4.9) X10*3/uL Miner # (Auto) (0.1-1.2) X10*3/uL Eos # (Auto) (0.0-0.4) X10*3/uL Baso # (Auto) (0.0-0.2) X10*3/uL Abs Immat Gran (auto) (0.00-0.03) X10*3/uL Absolute Neuts (auto) (2.0-8.3) x10*3/uL Absolute Nucleated RBC (0.0-0.012) X10*3/uL Nucleated RBC % (auto) (0.0-0.2) /100WBC PT (10.0-13.1) SEC INR (0.9-1.1) Sodium (135-145) mmol/L Potassium (3.3-5.1) mmol/L Chloride (96-108) mmol/L Carbon Dioxide (22-29) mmol/L Anion Gap (12-20) BUN (9-16) mg/dL Creatinine (0.5-1.4) mg/dL Estim Creat Clear Calc Estimated GFR Random Glucose (60-115) mg/dL Lactic Acid (0.5-2.0) mmol/L Calcium (8.4-10.2) mg/dL Magnesium (1.6-2.6) mg/dL Total Bilirubin (0.0-1.0) mg/dL Direct Bilirubin (0.0-0.5) mg/dL AST (5-37) U/L ALT (0-40) U/L Alkaline Phosphatase (39-117) U/L Troponin I High Sens (<3.5-35.0) ng/L Total Protein (6.5-8.0) g/dL Albumin (3.5-5.0) g/dL Lipase (8-78) U/L Urine Color Yellow Urine Appearance Clear Urine pH 6.0 (5.0-9.0) Ur Specific [place] 1.020 (1.005-1.025) Urine Protein 100 (2+) H (Neg-Trace) mg/dL Urine Glucose (UA) Negative (Negative) mg/dL Urine Ketones 80 (Negative) mg/dL Urine Blood Negative (Negative) Urine Nitrite Negative (Negative) Ur Leukocyte Esterase Negative (Negative) Urine RBC 0-2 (0-2) /HPF Urine WBC 0-5 (0-5) /HPF Ur Squamous Epith Cells 0-2 (0-2) /HPF Urine Bacteria None Seen (None Seen) Hyaline Casts 0-2 (0-2) /LPF Stool Occult Blood POSITIVE (NEGATIVE) Salicylates (15-30) mg/dL Urine Opiates Screen Not Detected (Not Detect) Urine Fentanyl Screen Not Detected (Not Detect) Acetaminophen (<30) mcg/mL Ur Barbiturates Screen POSITIVE H (Not Detect) Ur Phencyclidine Scrn Not Detected (Not Detect) Ur Amphetamines Screen Not Detected (Not Detect) U Benzodiazepines Scrn POSITIVE H (Not Detect) Urine Cocaine Screen POSITIVE H (Not Detect) U Marijuana (THC) Screen POSITIVE H (Not Detect) Ethyl Alcohol mg/dL 09/04/22 09/04/22 Range/Units 09:15 11:34 WBC (4.8-10.8) X10*3/uL RBC (4.60-5.80) X10*6/uL Hgb (14.0-18.0) g/dl Hct (42.0-52.0) % MCV (80.0-98.0) fL MCH (27.0-33.0) pg MCHC (31.0-36.0) g/dl RDW (11.0-16.0) % Plt Count (160-400) X10*3/uL MPV (9.4-12.4) fL Immature Gran % (Auto) (0.0-0.4) % Neut % (Auto) (45-73) % Lymph % (Auto) (20-40) % Miner % (Auto) (2-11) % Eos % (Auto) (0-4) % Baso % (Auto) (0-2) % Lymph # (Auto) (1.2-4.9) X10*3/uL Miner # (Auto) (0.1-1.2) X10*3/uL Eos # (Auto) (0.0-0.4) X10*3/uL Baso # (Auto) (0.0-0.2) X10*3/uL Abs Immat Gran (auto) (0.00-0.03) X10*3/uL Absolute Neuts (auto) (2.0-8.3) x10*3/uL Absolute Nucleated RBC (0.0-0.012) X10*3/uL Nucleated RBC % (auto) (0.0-0.2) /100WBC PT 12.0 (10.0-13.1) SEC INR 1.0 (0.9-1.1) Sodium (135-145) mmol/L Potassium (3.3-5.1) mmol/L Chloride (96-108) mmol/L Carbon Dioxide (22-29) mmol/L Anion Gap (12-20) BUN (9-16) mg/dL Creatinine (0.5-1.4) mg/dL Estim Creat Clear Calc Estimated GFR Random Glucose (60-115) mg/dL Lactic Acid 4.6 H* (0.5-2.0) mmol/L Calcium (8.4-10.2) mg/dL Magnesium (1.6-2.6) mg/dL Total Bilirubin (0.0-1.0) mg/dL Direct Bilirubin (0.0-0.5) mg/dL AST (5-37) U/L ALT (0-40) U/L Alkaline Phosphatase (39-117) U/L Troponin I High Sens (<3.5-35.0) ng/L Total Protein (6.5-8.0) g/dL Albumin (3.5-5.0) g/dL Lipase (8-78) U/L Urine Color Urine Appearance Urine pH (5.0-9.0) Ur Specific [place] (1.005-1.025) Urine Protein (Neg-Trace) mg/dL Urine Glucose (UA) (Negative) mg/dL Urine Ketones (Negative) mg/dL Urine Blood (Negative) Urine Nitrite (Negative) Ur Leukocyte Esterase (Negative) Urine RBC (0-2) /HPF Urine WBC (0-5) /HPF Ur Squamous Epith Cells (0-2) /HPF Urine Bacteria (None Seen) Hyaline Casts (0-2) /LPF Stool Occult Blood (NEGATIVE) Salicylates (15-30) mg/dL Urine Opiates Screen (Not Detect) Urine Fentanyl Screen (Not Detect) Acetaminophen (<30) mcg/mL Ur Barbiturates Screen (Not Detect) Ur Phencyclidine Scrn (Not Detect) Ur Amphetamines Screen (Not Detect) U Benzodiazepines Scrn (Not Detect) Urine Cocaine Screen (Not Detect) U Marijuana (THC) Screen (Not Detect) Ethyl Alcohol mg/dL Radiology Impression Discussion of test interpretation with radiology: I have reviewed the radiologist's reading. External Record Review External record reviewed: Inpatient record, Office record, Outpatient record, Prior outpatient labs, Prior outpatient radiology, Primary care record and Outside ED record Tests considered The following testing was considered but not selected: As above Medications Administered Discontinued Medications Generic Name Dose Route Start Last Admin Trade Name Freq PRN Reason Stop Dose Admin Sodium Chloride 1,000 mls @ 999 mls/hr 09/04/22 07:45 09/04/22 09:31 Ns IV 09/04/22 08:45 Infused .Q1H1M [facility] Infusion Sodium Chloride 1,000 mls @ 999 mls/hr 09/04/22 09:45 09/04/22 11:32 Ns IV 09/04/22 10:45 Infused .Q1H1M MAILE Infusion Iohexol 85 ml 09/04/22 10:03 09/04/22 10:04 Iohexol 350 Mg/Ml 75 Ml Infus..Btl IV 09/04/22 10:04 85 ml ONCE ONE Administration Lorazepam 2 mg 09/04/22 07:39 09/04/22 08:00 Lorazepam 1 Mg Tablet PO 09/04/22 07:40 2 mg ONCE ONE Administration Lorazepam 1 mg 09/04/22 08:40 09/04/22 08:56 Lorazepam 2 Mg/Ml Vial IVPUSH 09/04/22 08:41 1 mg STAT STA Administration Lorazepam 1 mg 09/04/22 10:56 09/04/22 11:00 Lorazepam 2 Mg/Ml Vial IVPUSH 09/04/22 10:57 1 mg STAT STA Administration Pantoprazole Sodium 80 mg 09/04/22 09:59 09/04/22 10:29 Pantoprazole Sodium 40 Mg/10 Ml Vial IVPUSH 09/04/22 10:00 80 mg ONCE ONE Administration Phenobarbital Sodium 265 mg 09/04/22 12:00 09/04/22 12:13 Phenobarbital Sodium 130 Mg/Ml Im Once IM 09/04/22 12:01 265 mg ONCE ONE Administration Protocol Critical Care Time Critical Care Time Critical Care Time: Yes Total Critical Care Time: 45 Attestation: I have personally provided critical care time exclusive of time spent on separately billable procedures. Time includes review of lab data, radiology results, discussion with consultants, and monitoring for potential decompensation. Intervention performed as documented. Discharge Plan Discharge Clinical Impression: Alcohol withdrawal, Occult blood positive stool, Hematemesis Patient Disposition: Admitted As Inpatient
--- NOTE | 2022-09-04 07:40 | ECG_ITS ---
Test Reason : epigastric/abd pain Blood Pressure : / mmHG Vent. Rate : 088 BPM Atrial Rate : 088 BPM P-R Int : 170 ms QRS Dur : 092 ms QT Int : 362 ms P-R-T Axes : 035 052 036 degrees QTc Int : 438 ms Normal sinus rhythm Possible Inferior infarct , age undetermined Abnormal ECG When compared with ECG of 19-AUG-2022 12:44, No significant change was found Referred By: Ester Burroughs Electronically Signed By:BIANCA SAENZ
[2022-09-04] MEDS: 0.9 % Sodium Chloride 1,000 ML 999 ML IV ×2 (08:00→10:30)
[2022-09-04] MEDS: LORazepam 1 MG TABLET 2 MG PO (08:00)
[2022-09-04 08:07] LABS: Magnesium 1.6 mg/dL (1.6-2.6)
[2022-09-04 08:23] LABS: OBS Int Ctl Valid YES; OBS1 POSITIVE (NEGATIVE)
[2022-09-04 08:33] LABS: Troponin-I High Sensitivity < 2.7 ng/L (<3.5-35.0)
[2022-09-04] MEDS: LORazepam 2 MG/ML VIAL 1 MG IVPUSH ×2 (08:56→11:00)
[2022-09-04 09:25] LABS: Appearance Urine Clear; Color Urine Yellow; Glucose Urine UA Negative (Negative); Leukocyte Esterase Urine Negative (Negative); Nitrite Urine Negative (Negative); UMIC TRIGGER UACC YES; Urine Blood Negative (Negative); Urine Ketones 80 mg/dL (Negative); Urine Protein 100 (2+) mg/dL (Neg-Trace)
[2022-09-04 09:30] LABS: Bacteria Urine None Seen (None Seen); Hyaline Casts Urine 0-2 /LPF (0-2); RBC Urine 0-2 /HPF (0-2); Squamous Epithelial Cell Urine 0-2 /HPF (0-2); WBC Urine 0-5 /HPF (0-5)
[2022-09-04 09:38] LABS: Amphetamine Screen Urine Not Detected (Not Detect); Barbiturates, Urine POSITIVE (Not Detect); Benzodiazepines Screen Urine POSITIVE (Not Detect); Cannabinoid Screen Urine POSITIVE (Not Detect); Cocaine Screen Urine POSITIVE (Not Detect); Fentanyl, urine Not Detected (Not Detect); Opiate Screen Urine Not Detected (Not Detect); Phencyclidine Screen Urine Not Detected (Not Detect)
[2022-09-04 09:41] LABS: Lactic Acid 4.6 mmol/L (0.5-2.0)
[2022-09-04] MEDS: iohexoL 350 MG/ML 75 ML INFUS..BTL 85 ML IV (10:04)
[2022-09-04 10:15] LABS: Acetaminophen LAB < 17 mcg/mL (<30); Salicylate < 5.0 mg/dL (15-30)
[2022-09-04] MEDS: Pantoprazole Sodium 40 MG/10 ML VIAL 80 MG IVPUSH (10:29)
[2022-09-04 11:20] LABS: Reflex Lactate? Lactic Acid Added
[2022-09-04] MEDS: PHENobarbitaL sodium 130 MG/ML IM ONCE 265 MG IM (12:13)
[2022-09-04 12:20] LABS: ~Lactic Acid-LAB USE ONLY 2.9 mmol/L (0.5-2.0)
--- NOTE | 2022-09-04 12:38 | PC.NURSE ---
pt and significant other aware of plan of care for admission to hosp.
--- NOTE | 2022-09-04 12:45 | PHA.MEDREC ---
Pharmacy Consult ? Medication Reconciliation Pharmacy has completed the medication reconciliation. Spoke with patient and was able to verify his medications. He said he took no medications today.
[2022-09-04] MEDS: Pantoprazole Sodium 80 MG in 0.9 % Sodium Chloride 80 ML 10 MG IV (12:57)
--- NOTE | 2022-09-04 13:06 | P.HPHOSP_ITS ---
History of Present Illness Date of Service: 09/04/22 Attending physician on admission: Herson Worthy Chief Complaint: etoh detox, epigastric pain 57-year-old male with a past medical history of alcohol abuse, hypertension, hyperlipidemia, GERD, noninsulin dependent type 2 diabetes, benign essential tremor, cocaine abuse, and hx hepatitis who presents to the emergency department presenting to the ED requesting ETOH detox.? Admits to drinking a 12 pack and pint of bourbon daily, last drink at 02:00AM.? Patient reports epigastric abdominal pain, nausea, and girlfriend endorses hematemesis last night and early this morning. He states he has a pattern of binge drinking where he will quit drinking for 3-4 week and then binge again. Resumed etoh consumption 3-4 days ago. Has used naltrexone and AA to help with cessation in the past. He desires detox. On arrival, patient hypertensive to 176/96, tachycardic to 110 (sinus), vitals otherwise stable. He has a leukocytosis of 13.3. Renal function normal, electrolyte levels normal. Initial lactic acid 4.6, improved to 2.9 following I V fluids. Hepatic function within normal limits. Urinalysis unremarkable except for 2+ protein, stool occult blood positive. Urine tox screen positive for barbiturates, benzodiazepines, cocaine CT abdomen/pelvis is negative for any acute intra-abdominal process but did show mild constipation. In the ED, has been treated with lorazepam, IV ppi, IV NS, and has been started on phenobarbital for protocol. Review of Systems Review of Systems: General: No fevers, malaise, unintentional weight loss HEENT: No blurred vision, diplopia. No sore throat, nasal congestion, rhinorrhea, sinus pain, ear pain Cardiovascular: No chest pain, palpitations, or leg edema Respiratory: No shortness of breath, wheezing, cough GI: +epigastric pain, n/v, hematemesis. No diarrhea, constipation, melena, hematochezia : No dysuria, hematuria, increased urinary frequency, decreased urinary output MSK: No myalgia, back pain Neuro: No headaches, weakness, paresthesias Skin: No rashes or lesions [facility] Medical History Acute hepatitis Alcohol abuse with withdrawal Alcohol use disorder, severe, dependence Alcohol withdrawal Alcoholic ketoacidosis Anxiety with depression Benign essential hypertension Diabetes mellitus Essential and other specified forms of tremor GERD without esophagitis History of alcoholic hepatitis HTN (hypertension) Hypersomnolence Insomnia Mixed hyperlipidemia Obesity (BMI 30-39.9) Recurrent moderate major depressive disorder with anxiety Snoring Family History Father Advanced cirrhosis of liver Alcoholic cirrhosis Substance use disorder Mother Dementia Maternal Grandfather Substance use disorder Sister Substance use disorder Maternal Grandfather Colon cancer Prostate cancer Surgical History H/O colonoscopy History of esophagogastroduodenoscopy (EGD) Social History Household Members: Significant Other and Other Household Members Other:: Cousin Housing: House Do you presently have visiting nurse or other home services: No Alcohol intake: current Alcohol intake frequency: 3 or more drinks per day Patient Tobacco Use Status: Former Tobacco user Tobacco use type: Cigarette Years Smoked: quit 10 years ago Smoked in Last 30 Days: No e-Cigarette/Vaping Use: Never Used Second Hand Smoke Exposure: No Use of substances other than those prescribed or required for medical reasons: No Substance Use Type: Marijuana Advance Directives: Yes Advance Directives on File: Yes Advance Directives Date on File: 10/23/21 service: No Current occupational status: 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 Meds Allergies Allergy/AdvReac Type Severity Reaction Status Date / Time No Known Allergies Allergy Verified 09/04/22 06:16 [No Known Allergies*] Active Medications: Current Medications Pantoprazole Sodium 80 mg/ (Sodium Chloride) 100 mls @ 10 mls/hr IV .Q10H MAILE Last Admin: 09/04/22 12:57 Dose: 8 mg/hr, 10 mls/hr Pharmacy Consult (Consult Rx Etoh Phenob Po Only) 1 each MISCELLANE ONCE PRN; Protocol PRN Reason: Consult order Phenobarbital (Phenobarbital 15 Mg Tablet) 45 mg PO BID MAILE; Protocol Stop: 09/06/22 21:01 Phenobarbital (Phenobarbital 15 Mg Tablet) 15 mg PO BID MAILE; Protocol Stop: 09/08/22 21:01 Phenobarbital (Phenobarbital 15 Mg Tablet) 15 mg PO DAILY MAILE; Protocol Stop: 09/10/22 09:01 Phenobarbital Sodium (Phenobarbital Sodium 130 Mg/Ml Vial Im Q3hx2) 200 mg IM Q3H MAILE; Protocol Stop: 09/04/22 18:01 Home Medications Medication Instructions Recorded Confirmed Last Taken Type multivitamin 1 tab PO DAILY 03/19/22 09/04/22 07/14/22 07:30 History hydroxyzine pamoate 50 mg capsule 100 mg PO BEDTIME PRN insomnia 06/06/22 09/04/22 07/13/22 21:00 History labetalol 300 mg tablet 300 mg PO BID 08/02/22 09/04/22 Unknown History omeprazole 20 mg capsule,delayed 20 mg PO DAILY 09/04/22 09/04/22 Unknown History release quetiapine 100 mg tablet 300 mg PO BEDTIME PRN anxiety 09/04/22 09/04/22 Unknown History Physical Exam Vital Signs and Narrative: Vital Signs: Last Vital Signs Temp 99.4 F 09/04/22 10:49 Pulse 110 H 09/04/22 12:16 Resp 18 09/04/22 12:16 BP 176/96 H 09/04/22 12:16 Pulse Ox 96 09/04/22 12:16 O2 Del Method Room Air 09/04/22 12:16 BMI result Body Mass Index 31.3 Constitutional - Awake and Alert, No apparent distress Eyes - PERRLA, EOMI Cardiovascular - S1S2, RRR, No edema Respiratory - Normal lung expansion, Normal respiratory effort, No respiratory distress, CTA bilaterally Gastrointestinal - mild epigastric ttp. ND; +BS; No rebound or guarding Extremities - no calf tenderness bilaterally, no swelling Musculoskeletal - Normal inspection, normal ROM Skin - Warm/Dry Neurological - Alert & oriented x3, CN II-XII in tact, 5/5 strength BUE and BLE Psychological - Appropriate affect Results Labs 09/04/22 06:30 09/04/22 06:30 Labs: Laboratory Results - last 24 hr 09/04/22 09/04/22 09/04/22 06:30 06:30 07:56 MCV 84.1 MCH 30.2 MCHC 35.8 RDW 13.3 Plt Count 269 MPV 8.7 L Immature Gran % (Auto) 0.2 Neut % (Auto) 67.2 Lymph % (Auto) 25.3 [place] % (Auto) 6.5 Eos % (Auto) 0.4 Baso % (Auto) 0.4 Lymph # (Auto) 3.4 [place] # (Auto) 0.9 Eos # (Auto) 0.1 Baso # (Auto) 0.1 Abs Immat Gran (auto) 0.03 Absolute Neuts (auto) 8.9 H Absolute Nucleated RBC 0.000 Nucleated RBC % (auto) 0.0 PT INR Anion Gap 22 H Estim Creat Clear Calc 109.3 Estimated GFR > 60 Random Glucose 164 H Lactic Acid Lactic Acid F/U @ 2Hr Calcium 9.7 Magnesium 1.6 Total Bilirubin 0.6 Direct Bilirubin 0.2 AST 29 ALT 36 Alkaline Phosphatase 63 Troponin I High Sens < 2.7 Total Protein 8.1 H Albumin 5.1 H Lipase 16 Urine Color Urine Appearance Urine pH Ur Specific [place] Urine Protein Urine Glucose (UA) Urine Ketones Urine Blood Urine Nitrite Ur Leukocyte Esterase Urine RBC Urine WBC Ur Squamous Epith Cells Urine Bacteria Hyaline Casts Stool Occult Blood Salicylates < 5.0 L Urine Opiates Screen Urine Fentanyl Screen Acetaminophen < 17 Ur Barbiturates Screen Ur Phencyclidine Scrn Ur Amphetamines Screen U Benzodiazepines Scrn Urine Cocaine Screen U Marijuana (THC) Screen Ethyl Alcohol 128 09/04/22 09/04/22 09/04/22 07:56 09:07 09:08 MCV MCH MCHC RDW Plt Count MPV Immature Gran % (Auto) Neut % (Auto) Lymph % (Auto) [place] % (Auto) Eos % (Auto) Baso % (Auto) Lymph # (Auto) [place] # (Auto) Eos # (Auto) Baso # (Auto) Abs Immat Gran (auto) Absolute Neuts (auto) Absolute Nucleated RBC Nucleated RBC % (auto) PT INR Anion Gap Estim Creat Clear Calc Estimated GFR Random Glucose Lactic Acid Lactic Acid F/U @ 2Hr Calcium Magnesium Total Bilirubin Direct Bilirubin AST ALT Alkaline Phosphatase Troponin I High Sens Total Protein Albumin Lipase Urine Color Yellow Urine Appearance Clear Urine pH 6.0 Ur Specific [place] 1.020 Urine Protein 100 (2+) H Urine Glucose (UA) Negative Urine Ketones 80 Urine Blood Negative Urine Nitrite Negative Ur Leukocyte Esterase Negative Urine RBC 0-2 Urine WBC 0-5 Ur Squamous Epith Cells 0-2 Urine Bacteria None Seen Hyaline Casts 0-2 Stool Occult Blood POSITIVE Salicylates Urine Opiates Screen Not Detected Urine Fentanyl Screen Not Detected Acetaminophen Ur Barbiturates Screen POSITIVE H Ur Phencyclidine Scrn Not Detected Ur Amphetamines Screen Not Detected U Benzodiazepines Scrn POSITIVE H Urine Cocaine Screen POSITIVE H U Marijuana (THC) Screen POSITIVE H Ethyl Alcohol 09/04/22 09/04/22 09/04/22 09:15 11:34 11:34 MCV MCH MCHC RDW Plt Count MPV Immature Gran % (Auto) Neut % (Auto) Lymph % (Auto) [place] % (Auto) Eos % (Auto) Baso % (Auto) Lymph # (Auto) [place] # (Auto) Eos # (Auto) Baso # (Auto) Abs Immat Gran (auto) Absolute Neuts (auto) Absolute Nucleated RBC Nucleated RBC % (auto) PT 12.0 INR 1.0 Anion Gap Estim Creat Clear Calc Estimated GFR Random Glucose Lactic Acid 4.6 H* Lactic Acid F/U @ 2Hr 2.9 H* Calcium Magnesium Total Bilirubin Direct Bilirubin AST ALT Alkaline Phosphatase Troponin I High Sens Total Protein Albumin Lipase Urine Color Urine Appearance Urine pH Ur Specific [place] Urine Protein Urine Glucose (UA) Urine Ketones Urine Blood Urine Nitrite Ur Leukocyte Esterase Urine RBC Urine WBC Ur Squamous Epith Cells Urine Bacteria Hyaline Casts Stool Occult Blood Salicylates Urine Opiates Screen Urine Fentanyl Screen Acetaminophen Ur Barbiturates Screen Ur Phencyclidine Scrn Ur Amphetamines Screen U Benzodiazepines Scrn Urine Cocaine Screen U Marijuana (THC) Screen Ethyl Alcohol Imaging Radiologist's Impressions: Impressions Abdomen/Pelvis CT 09/04/22 10:04 IMPRESSION: 1. No acute intra-abdominal process seen. 2. Mild constipation. Fleischner guidelines were followed. Assessment and Plan (1) Alcohol withdrawal: Status: Acute (2) Occult blood positive stool: Status: Acute (3) Hematemesis: Status: Acute Plan 57-year-old male with a past medical history of alcohol abuse, hypertension, hyperlipidemia, GERD, noninsulin dependent type 2 diabetes, benign essential tremor, cocaine abuse, and hx hepatitis admitted for etoh withdrawal and alcoholic gastritis with hematemesis. #Acute alcoholic gastritis -IV PPI -Carafate QIDACHS -Clear liquids -Appreciate GI input #Acute hematemesis- likely r/t MWT -H/H stable, stool occult blood positive -clear liquids -IV PPI as above -Follow CBC -Appreciate GI input #Acute etoh withdrawal -continue phenobarb per protocol -Monitor on CIWA -Addiction med consult #NIDDM type 2 -POC glucose -Advance to diabetic diet -Humalog on sliding scale -hold metformin #HTN -continue labetalol #Benign essential tremor -continue primidone/labetalol DVT prophylaxis- SCPs given hematemesis/heme positive stool Full code Pt requires inpt stay at least 2 midgnights for management of acute etoh withdrawal at risk for severe withdrawal on phenobarbitol per protocol. Time Spent With Patient Time: Total time managing care of this patient today ____ minutes. Quality Stroke Does the patient have a stroke diagnosis?: No VTE Prior VTE?: No VTE Risk Level:: Medical - moderate - high VTE Device Contraindication: N/A - Device Ordered VTE Drug Contraindication: Treatment Not Indicated
[2022-09-04 13:36] LABS: Reflex Lactate? 2 Y
[2022-09-04 14:09] LABS: ~Lactic Acid-LAB USE ONLY 1.9 mmol/L (0.5-2.0)
[2022-09-04] MEDS: Folic Acid 1 MG TABLET PO (14:09)
[2022-09-04] MEDS: PHENobarbitaL sodium 130 MG/ML VIAL IVPUSH (14:09)
[2022-09-04] MEDS: Thiamine HCL 100 MG in 0.9 % Sodium Chloride 100 ML 202 MG IV (15:16)
--- NOTE | 2022-09-04 15:17 | PC.NURSE ---
contacted pharmacy to discuss upcoming IM phenobarb protocol put in by ed prodiver, in addition to hospitalist order for ivp phenobarb. expecting call back for clarity on the order. current ciwa score 8
--- NOTE | 2022-09-04 15:32 | PC.NURSE ---
next IM phenobarb dose to be rescheduled to 1700h and 2000h. any concerns for oversedation at those times will be communicated to the hospitalist.
[2022-09-04 16:37] LABS: Glucose, Whole Blood 213 mg/dL (60-115)
[2022-09-04] MEDS: Insulin Lispro 100 UNIT/ML 3 ML VIAL SUBCUT ×2 (16:48→21:27)
[2022-09-04] MEDS: PHENobarbitaL sodium 130 MG/ML VIAL IM Q3Hx2 200 MG IM ×2 (16:48→21:26)
[2022-09-04] MEDS: Sucralfate 1 GM TABLET PO ×2 (16:49→21:27)
--- NOTE | 2022-09-04 18:26 | PC.NURSE ---
pt admitted to unit at 1700. upon assessment, pt's CIWA score is a 17. Scheduled dose of IM phenobarbital 200mg given. aware. will continue to monitor patient.
--- NOTE | 2022-09-04 19:32 | PM.EVENT ---
Event Note Date of Service: 09/04/22 Event Note: GI Consult-Full note dictated Imp: Self-limited UGI bleed with a single episode of emesis in a 57yo male with the recent onset of binge drinking. He has a longstanding history of EtOH abuse as well. He had an EGD in 03/[address] Trinh that was negative for varices, portal gastropathy, and ulcers. His Hgb on admission was normal. He appears quite stable at the present time. Diff dx: Maddy-Fernandez tear, EtOH-gastritis and/or esophagitis. I don't think this represents PUD nor varices. Rec: Hold off on EGD as long as things remain stable. F/U labs. Clear liquids and IV PPI overnight. If stable in AM then advance diet and change to po PPI. If he shows signs of active bleeding please call me and an upper endoscopy will be arranged. 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 He is comfortable with this plan. Thanks Time Spent With Patient Time: Total time managing care of this patient today ____ minutes.
[2022-09-04 20:28] LABS: Glucose, Whole Blood 201 mg/dL (60-115)
--- NOTE | 2022-09-04 20:52 | CONS_ITS ---
DATE OF SERVICE: 09/04/2022 REASON FOR CONSULTATION: Hematemesis. HISTORY OF PRESENT ILLNESS: The patient is a 57-year-old male with a longstanding history of intermittent alcohol abuse, who presents to the ER today for detox, but describes an episode of hematemesis yesterday. His past history is notable for a hospitalization in March during which he underwent an upper endoscopy with Dr. Trinh, which described a segment of Valles esophagus and some gastric polyps. Biopsies did reveal evidence of Valles esophagus, but without dysplasia. Gastric biopsies were negative for H pylori and duodenal biopsies were normal. He does report that he has remained on omeprazole at home. He reports this works fairly well to control heartburn. However, he describes the beginning of binge drinking several days ago with the resultant episode of vomiting yesterday. He describes that there was some blood streaking in the vomitus, but there were no blood clots noted. He only had 1 episode of that and has had no further episodes since then. He denies any melena nor hematochezia. He denies any abdominal pain. He denies the use of any aspirin or NSAIDs. In the ER, he was found to have heme-positive stool. His initial hemoglobin was 15.2 early this morning. He had a hemoglobin of 15.9 earlier this month. MEDICATIONS AT HOME: Hydroxyzine, pamoate at bedtime p.r.n., labetalol, metformin, vitamins, naltrexone, omeprazole, paroxetine, primidone, Seroquel, and rosuvastatin. His medications here in the hospital include acetaminophen, atorvastatin, Colace, folic acid, hydroxyzine, labetalol, lorazepam, vitamins, Zofran, IV Protonix, Paxil, phenobarbital protocol, primidone, Seroquel, sucralfate, and thiamine. PAST MEDICAL HISTORY: Alcohol abuse. Hypertension. Hyperlipidemia. Non insulin-dependent diabetes mellitus. He denies any surgeries. Gastroesophageal reflux with Valles's esophagus. Cocaine abuse. Insomnia. Obesity. Depression and anxiety. SOCIAL HISTORY: Alcohol abuse as above. He currently does not smoke. He has a girlfriend. FAMILY HISTORY: Noncontributory. REVIEW OF SYSTEMS: CONSTITUTIONAL: Up until beginning the binge drinking several days ago, he reports he was feeling fairly well with good appetite. SKIN: No rash, no pruritus. CARDIAC: No chest pain. PULMONARY: No cough or hemoptysis. GI: As above. URINARY: No dysuria, no hematuria. NEUROLOGIC: No headache or seizures. PSYCHIATRIC: As above. PHYSICAL EXAMINATION: GENERAL: The patient is an alert, cooperative male, in no distress. SKIN: Warm and dry. EYES: Anicteric sclerae. NECK: Supple without lymphadenopathy. CHEST: Clear. CARDIAC: S1, S2. ABDOMEN: Soft, nondistended. Normal bowel sounds. Nontender without palpable mass nor organomegaly. EXTREMITIES: Without edema. NEUROLOGIC: He is alert and oriented. LABORATORY DATA: As above. White blood cell count 13.3, hemoglobin 15.2, platelets 269,000. PT 12.0 with INR 1.0. Initial lactic acid level is 4.6, but followup was 1.9. Normal electrolytes. BUN 10, creatinine 0.8. Total bilirubin 0.6, AST 29, ALT 36, alkaline phosphatase 63, albumin 5.1, lipase 16. Stool was Hemoccult positive. Toxicology screen was positive for barbiturates, benzodiazepines, cocaine, and marijuana. Alcohol level was 128. He did have a CT of the abdomen and pelvis today with IV contrast. The liver appeared normal, as did the pancreas and spleen. The GI tract appeared normal. There were no acute changes noted. IMPRESSION: Given the patient's clinical history and recent endoscopy back in March, I feel that his current presentation is consistent with some very limited GI bleeding in relation to alcohol-induced gastritis and/or esophagitis, or even a possible component of a Maddy-Fernandez tear in relation to the vomiting. In any event, I do not think he needs endoscopic intervention at this time. Given the single episode of minimal bleeding yesterday and a very stable clinical appearance presently with a normal hemoglobin, I will continue supportive care and maintain him on the IV PPI overnight. If things are stable tomorrow, his diet could be advanced and he can be switched back to his oral PPI. Certainly if he shows signs of active bleeding, we could then reassess things and have him undergo endoscopy instead. I did have a detailed discussion with him today regarding the need to abstain from alcohol long-term. We also discussed his history of Valles's esophagus, the need for surveillance endoscopy in 2024 as well. He will have repeat labs in the morning as well. The patient is comfortable with this plan. MD PEACE Pickens/BRANDON / [phone] MTDUrsula
[2022-09-04] MEDS: Atorvastatin Calcium 80 MG TABLET PO (21:27)
[2022-09-04] MEDS: Labetalol HCL 100 MG TABLET 300 MG PO (21:27)
[2022-09-04] MEDS: Primidone 50 MG TABLET 100 MG PO (21:28)
[2022-09-05 03:43] VITALS: BP 125/80; PULSE 69; RESP 18; TEMP 37.2; O2SAT 92
[2022-09-05] MEDS: 0.9 % Sodium Chloride Flush 3 ML SYRINGE IVFLUSH ×4 (03:49→20:58)
[2022-09-05] MEDS: Pantoprazole Sodium 40 MG/10 ML VIAL IVPUSH ×2 (06:13→16:21)
[2022-09-05 06:44] LABS: MANUAL DIFF FLAG NO
[2022-09-05 06:52] LABS: Basophils Percent Auto 0.6 % (0-2); Eosinophils Absolute Auto 0.1 X10*3/uL (0.0-0.4); Eosinophils Percent Auto 1.7 % (0-4); Hematocrit 35.6 % (42.0-52.0); Hemoglobin 12.5 g/dl (14.0-18.0); Imm Gran Abs Auto 0.01 X10*3/uL (0.00-0.03); Imm Gran Pct Auto 0.2 % (0.0-0.4); Lymphocytes Absolute Auto 1.5 X10*3/uL (1.2-4.9); Lymphocytes Percent Auto 29.5 % (20-40); Mean Corpuscular HGB Conc 35.1 g/dl (31.0-36.0); Mean Corpuscular Hemoglobin 30.4 pg (27.0-33.0); Mean Corpuscular Volume 86.6 fL (80.0-98.0); Mean Platelet Volume 8.8 fL (9.4-12.4); Monocytes Absolute Auto 0.4 X10*3/uL (0.1-1.2); Monocytes Percent Auto 7.3 % (2-11); Neutrophils Absolute Auto 3.2 x10*3/uL (2.0-8.3); Neutrophils Percent Auto 60.7 % (45-73); Platelet Count 174 X10*3/uL (160-400); Red Blood Count 4.11 X10*6/uL (4.60-5.80); Red Cell Distribution Width 13.3 % (11.0-16.0); White Blood Count 5.2 X10*3/uL (4.8-10.8)
[2022-09-05 07:07] LABS: Alanine Aminotransferase 28 U/L (0-40); Albumin Level 4.1 g/dL (3.5-5.0); Alkaline Phosphatase 56 U/L (39-117); Anion Gap 13 (12-20); Aspartate Amino Transferase 29 U/L (5-37); Blood Urea Nitrogen 11 mg/dL (9-16); Calcium 9.1 mg/dL (8.4-10.2); Carbon Dioxide 27 mmol/L (22-29); Chloride 104 mmol/L (96-108); Creatinine Clr Calc Pharmacy 105.3; Estimated Glomerular Filt Rate > 60; Glucose Random 188 mg/dL (60-115); Magnesium 1.5 mg/dL (1.6-2.6); Potassium 3.5 mmol/L (3.3-5.1); Sodium 140 mmol/L (135-145); Total Protein 6.3 g/dL (6.5-8.0)
[2022-09-05 07:41] LABS: Glucose, Whole Blood 179 mg/dL (60-115)
[2022-09-05 07:57] VITALS: BP 147/93; PULSE 68; RESP 20; TEMP 36.7; O2SAT 99
[2022-09-05] MEDS: Insulin Lispro 100 UNIT/ML 3 ML VIAL SUBCUT ×4 (08:01→20:54)
[2022-09-05] MEDS: Sucralfate 1 GM TABLET PO ×4 (08:04→20:53)
[2022-09-05] MEDS: Labetalol HCL 100 MG TABLET 300 MG PO ×2 (08:05→20:53)
[2022-09-05] MEDS: Multivitamin TABLET 1 TAB PO (08:05)
[2022-09-05] MEDS: PARoxetine HCL 40 MG TABLET PO (08:05)
[2022-09-05] MEDS: Folic Acid 1 MG TABLET PO (08:05)
[2022-09-05] MEDS: PHENobarbitaL 15 MG TABLET 45 MG PO ×2 (08:05→20:48)
[2022-09-05] MEDS: Primidone 50 MG TABLET 100 MG PO ×2 (08:05→20:54)
[2022-09-05] MEDS: Thiamine HCL 100 MG in 0.9 % Sodium Chloride 100 ML 202 MG IV (08:23)
--- NOTE | 2022-09-05 09:31 | HO.PM.IMPN ---
Subjective Subjective Date of Service: 09/05/22 Interval History: withdrawal Physical Exam Vital Signs: Vital Signs: Last Vital Signs Temp 98.1 F 09/05/22 07:57 Pulse 68 09/05/22 07:57 Resp 20 09/05/22 07:57 BP 147/93 H 09/05/22 07:57 Pulse Ox 99 09/05/22 07:57 O2 Del Method Room Air 09/05/22 07:57 BMI result Body Mass Index 33.5 tremulous, alert oriented times 3 Objective Data Active Medications Acetaminophen (Acetaminophen 325 Mg Tablet) 650 mg PO Q6H PRN PRN Reason: Pain, Mild (Pain Scale 1-3) Atorvastatin Calcium (Atorvastatin Calcium 80 Mg Tablet) 80 mg PO BEDTIME [facility] Last Admin: 09/04/22 21:27 Dose: 80 mg Documented By: MARIA G Docusate Sodium (Docusate Sodium 100 Mg Capsule) 100 mg PO DAILY PRN PRN Reason: Constipation Folic Acid (Folic Acid 1 Mg Tablet) 1 mg PO DAILY [facility] Last Admin: 09/05/22 08:05 Dose: 1 mg Documented By: MCKENZIE Glucose (Glucose Gel 15 Gm Gel..Gram.) 15 gm PO Q15M PRN; Protocol PRN Reason: per Hypoglycemia Standing Ord. Hydroxyzine HCl (Hydroxyzine Hcl 50 Mg Tablet) 100 mg PO BEDTIME PRN PRN Reason: insomnia Thiamine HCl 100 mg/ Sodium (Chloride) 101 mls @ 202 mls/hr IV DAILY [facility] Stop: 09/06/22 09:29 Last Admin: 09/05/22 08:23 Dose: 202 mls/hr Documented By: MCKENZIE Dextrose (D10) 250 mls @ 750 mls/hr IV Q15M PRN; Protocol PRN Reason: per Hypoglycemia Standing Ord. Insulin Human Lispro (Insulin Lispro 100 Unit/Ml 3 Ml Vial) 0 unit SUBCUT QIDACHS [facility]; Protocol Last Admin: 09/05/22 08:01 Dose: 2 unit Documented By: MCKENZIE Labetalol HCl (Labetalol Hcl 100 Mg Tablet) 300 mg PO BID [facility] Last Admin: 09/05/22 08:05 Dose: 300 mg Documented By: MCKENZIE Multivitamins/Vitamin C (Multivitamin Tablet) 1 tab PO DAILY [facility] Last Admin: 09/05/22 08:05 Dose: 1 tab Documented By: MCKENZIE Ondansetron HCl (Ondansetron Hcl 4 Mg/2 Ml Vial) 4 mg IVPUSH Q8H PRN PRN Reason: Nausea and Vomiting Pantoprazole Sodium (Pantoprazole Sodium 40 Mg/10 Ml Vial) 40 mg IVPUSH BID@0630,1630 [facility] Last Admin: 09/05/22 06:13 Dose: 40 mg Documented By: MARIA G Paroxetine HCl (Paroxetine Hcl 40 Mg Tablet) 40 mg PO DAILY [facility] Last Admin: 09/05/22 08:05 Dose: 40 mg Documented By: MCKENZIE Pharmacy Consult (Consult Rx Etoh Phenob Po Only) 1 each MISCELLANE ONCE PRN; Protocol PRN Reason: Consult order Phenobarbital (Phenobarbital 15 Mg Tablet) 45 mg PO BID [facility]; Protocol Stop: 09/06/22 21:01 Last Admin: 09/05/22 08:05 Dose: 45 mg Documented By: MCKENZIE Phenobarbital (Phenobarbital 15 Mg Tablet) 15 mg PO BID [facility]; Protocol Stop: 09/08/22 21:01 Phenobarbital (Phenobarbital 15 Mg Tablet) 15 mg PO DAILY [facility]; Protocol Stop: 09/10/22 09:01 Primidone (Primidone 50 Mg Tablet) 100 mg PO BID [facility] Last Admin: 09/05/22 08:05 Dose: 100 mg Documented By: MCKENZIE Quetiapine Fumarate (Quetiapine Fumarate 300 Mg Tablet) 300 mg PO BEDTIME PRN PRN Reason: anxiety Sodium Chloride (0.9 % Sodium Chloride Flush 3 Ml Syringe) 3 ml IVFLUSH QSHIFT [facility] Last Admin: 09/05/22 06:13 Dose: 3 ml Documented By: MARIA G Sucralfate (Sucralfate 1 Gm Tablet) 1 gm PO QIDACHS [facility] Last Admin: 09/05/22 08:04 Dose: 1 gm Documented By: MCKENZIE Labs 09/05/22 06:40 09/05/22 06:40 Labs: Laboratory Results - last 24 hr 09/04/22 09/04/22 09/04/22 06:30 09:07 09:08 MCV MCH MCHC RDW Plt Count MPV Immature Gran % (Auto) Neut % (Auto) Lymph % (Auto) [place] % (Auto) Eos % (Auto) Baso % (Auto) Lymph # (Auto) [place] # (Auto) Eos # (Auto) Baso # (Auto) Abs Immat Gran (auto) Absolute Neuts (auto) Absolute Nucleated RBC Nucleated RBC % (auto) PT INR Anion Gap Estim Creat Clear Calc Estimated GFR POC Glucose Random Glucose Lactic Acid Lactic Acid F/U @ 2Hr Lactic Acid F/U @ 4Hr Calcium Magnesium Total Bilirubin AST ALT Alkaline Phosphatase Total Protein Albumin Urine RBC 0-2 Urine WBC 0-5 Ur Squamous Epith Cells 0-2 Urine Bacteria None Seen Hyaline Casts 0-2 Salicylates < 5.0 L Urine Opiates Screen Not Detected Urine Fentanyl Screen Not Detected Acetaminophen < 17 Ur Barbiturates Screen POSITIVE H Ur Phencyclidine Scrn Not Detected Ur Amphetamines Screen Not Detected U Benzodiazepines Scrn POSITIVE H Urine Cocaine Screen POSITIVE H U Marijuana (THC) Screen POSITIVE H 09/04/22 09/04/22 09/04/22 09:15 11:34 11:34 MCV MCH MCHC RDW Plt Count MPV Immature Gran % (Auto) Neut % (Auto) Lymph % (Auto) [place] % (Auto) Eos % (Auto) Baso % (Auto) Lymph # (Auto) [place] # (Auto) Eos # (Auto) Baso # (Auto) Abs Immat Gran (auto) Absolute Neuts (auto) Absolute Nucleated RBC Nucleated RBC % (auto) PT 12.0 INR 1.0 Anion Gap Estim Creat Clear Calc Estimated GFR POC Glucose Random Glucose Lactic Acid 4.6 H* Lactic Acid F/U @ 2Hr 2.9 H* Lactic Acid F/U @ 4Hr Calcium Magnesium Total Bilirubin AST ALT Alkaline Phosphatase Total Protein Albumin Urine RBC Urine WBC Ur Squamous Epith Cells Urine Bacteria Hyaline Casts Salicylates Urine Opiates Screen Urine Fentanyl Screen Acetaminophen Ur Barbiturates Screen Ur Phencyclidine Scrn Ur Amphetamines Screen U Benzodiazepines Scrn Urine Cocaine Screen U Marijuana (THC) Screen 09/04/22 09/04/22 09/04/22 13:49 16:34 20:16 MCV MCH MCHC RDW Plt Count MPV Immature Gran % (Auto) Neut % (Auto) Lymph % (Auto) [place] % (Auto) Eos % (Auto) Baso % (Auto) Lymph # (Auto) [place] # (Auto) Eos # (Auto) Baso # (Auto) Abs Immat Gran (auto) Absolute Neuts (auto) Absolute Nucleated RBC Nucleated RBC % (auto) PT INR Anion Gap Estim Creat Clear Calc Estimated GFR POC Glucose 213 H 201 H Random Glucose Lactic Acid Lactic Acid F/U @ 2Hr Lactic Acid F/U @ 4Hr 1.9 Calcium Magnesium Total Bilirubin AST ALT Alkaline Phosphatase Total Protein Albumin Urine RBC Urine WBC Ur Squamous Epith Cells Urine Bacteria Hyaline Casts Salicylates Urine Opiates Screen Urine Fentanyl Screen Acetaminophen Ur Barbiturates Screen Ur Phencyclidine Scrn Ur Amphetamines Screen U Benzodiazepines Scrn Urine Cocaine Screen U Marijuana (THC) Screen 09/05/22 09/05/22 09/05/22 06:40 06:40 07:28 MCV 86.6 MCH 30.4 MCHC 35.1 RDW 13.3 Plt Count 174 D MPV 8.8 L Immature Gran % (Auto) 0.2 Neut % (Auto) 60.7 Lymph % (Auto) 29.5 [place] % (Auto) 7.3 Eos % (Auto) 1.7 Baso % (Auto) 0.6 Lymph # (Auto) 1.5 [place] # (Auto) 0.4 Eos # (Auto) 0.1 Baso # (Auto) 0.0 Abs Immat Gran (auto) 0.01 Absolute Neuts (auto) 3.2 Absolute Nucleated RBC 0.000 Nucleated RBC % (auto) 0.0 PT INR Anion Gap 13 Estim Creat Clear Calc 105.3 Estimated GFR > 60 POC Glucose 179 H Random Glucose 188 H Lactic Acid Lactic Acid F/U @ 2Hr Lactic Acid F/U @ 4Hr Calcium 9.1 D Magnesium 1.5 L Total Bilirubin 1.0 AST 29 ALT 28 Alkaline Phosphatase 56 Total Protein 6.3 L Albumin 4.1 Urine RBC Urine WBC Ur Squamous Epith Cells Urine Bacteria Hyaline Casts Salicylates Urine Opiates Screen Urine Fentanyl Screen Acetaminophen Ur Barbiturates Screen Ur Phencyclidine Scrn Ur Amphetamines Screen U Benzodiazepines Scrn Urine Cocaine Screen U Marijuana (THC) Screen Assessment and Plan (1) Alcohol withdrawal: Status: Acute Plan 57M PMH alcohol abuse and steatohepatitis, hypertension, hyperlipidemia, GERD, noninsulin dependent type 2 diabetes, benign essential tremor, cocaine abuse, and hx hepatitis admitted for etoh withdrawal and alcoholic gastritis with hematemesis. etoh dependence, steatohepatitis with withdrawal phenobarb, ciwa Acute hematemesis- likely gastritis vs MWT H/H stable, stool occult blood positive advance po solids IV PPI Follow CBC hold off on egd for now DM insulin htn labetolol obesity weight loss tremor primidone, labetolol DVT prophylaxis- SCPs given hematemesis/heme positive stool Full code reason for continued hospitalization: active withdrawal Time Spent With Patient Time: Total time managing care of this patient today ____ minutes. Quality Stroke Does the patient have a stroke diagnosis?: No VTE Prior VTE?: No VTE Risk Level:: Medical - moderate - high VTE Device Contraindication: N/A - Device Ordered VTE Drug Contraindication: Treatment Not Indicated
--- NOTE | 2022-09-05 10:19 | MHC.RECOVRN ---
Attempted to meet with pt in 484 after consult placed to Addiction Medicine for alcohol and cocaine use. Pt familiar with t/w from previous consultations. Pt laying in bed, asleep, wakes to voice. Pt reports feeling awful and request recovery team follow up at a later time.
--- NOTE | 2022-09-05 10:50 | MHC.CM.PN ---
CM MET WITH PT AT BEDSIDE. PT IS ALERT AND TREMULOUS. LIVES WITH S/O IN A [facility]. INDEPENDENT AT BASELINE. PT STATES HE WOULD LIKE TO GO TO INPT DETOX WHEN MEDICALLY CLEARED. +HCP ON FILE + COVID VAX X2 PCP THERES[place]RELES [place] [facility] [place] VS INPT DETOX, S/O WILL TRANSPORT. CM WILL CONTINUE TO FOLLOW FOR DC NEEDS/PLAN
[2022-09-05] MEDS: QUEtiapine Fumarate 300 MG TABLET PO (11:05)
[2022-09-05 11:29] LABS: Glucose, Whole Blood 221 mg/dL (60-115)
[2022-09-05 11:57] VITALS: BP 138/86; PULSE 68; RESP 20; TEMP 36.8; O2SAT 95
[2022-09-05 16:00] VITALS: BP 131/80; PULSE 73; RESP 18; TEMP 36.5; O2SAT 96
[2022-09-05 16:30] LABS: Glucose, Whole Blood 267 mg/dL (60-115)
[2022-09-05] MEDS: LORazepam 1 MG TABLET PO (16:40)
[2022-09-05 19:15] VITALS: BP 131/78; PULSE 74; RESP 20; TEMP 36.3; O2SAT 96
[2022-09-05 20:19] LABS: Glucose, Whole Blood 226 mg/dL (60-115)
[2022-09-05] MEDS: Atorvastatin Calcium 80 MG TABLET PO (20:53)
[2022-09-05 23:37] VITALS: BP 140/87; PULSE 70; RESP 18; TEMP 37.1; O2SAT 96
[2022-09-06 03:55] VITALS: BP 147/89; PULSE 71; RESP 20; TEMP 36.3; O2SAT 95
[2022-09-06] MEDS: Pantoprazole Sodium 40 MG/10 ML VIAL IVPUSH (06:02)
[2022-09-06 07:22] LABS: Hematocrit 34.3 % (42.0-52.0); Hemoglobin 11.8 g/dl (14.0-18.0); Mean Corpuscular HGB Conc 34.4 g/dl (31.0-36.0); Mean Corpuscular Hemoglobin 30.2 pg (27.0-33.0); Mean Corpuscular Volume 87.7 fL (80.0-98.0); Mean Platelet Volume 9.5 fL (9.4-12.4); Platelet Count 142 X10*3/uL (160-400); Red Blood Count 3.91 X10*6/uL (4.60-5.80); Red Cell Distribution Width 12.9 % (11.0-16.0); White Blood Count 3.9 X10*3/uL (4.8-10.8)
[2022-09-06 07:41] LABS: Glucose, Whole Blood 184 mg/dL (60-115)
[2022-09-06 07:44] LABS: Anion Gap 13 (12-20); Blood Urea Nitrogen 10 mg/dL (9-16); Calcium 8.7 mg/dL (8.4-10.2); Carbon Dioxide 26 mmol/L (22-29); Chloride 105 mmol/L (96-108); Creatinine Clr Calc Pharmacy 106.5; Estimated Glomerular Filt Rate > 60; Glucose Fasting 187 mg/dL (60-99); Potassium 3.5 mmol/L (3.3-5.1); Sodium 140 mmol/L (135-145)
[2022-09-06 08:00] VITALS: BP 156/98; PULSE 72; RESP 20; TEMP 36.6; O2SAT 97
[2022-09-06] MEDS: Insulin Lispro 100 UNIT/ML 3 ML VIAL SUBCUT ×4 (08:19→20:45)
[2022-09-06] MEDS: Sucralfate 1 GM TABLET PO ×4 (08:19→20:27)
[2022-09-06] MEDS: LORazepam 1 MG TABLET PO ×3 (08:19→21:52)
[2022-09-06] MEDS: Multivitamin TABLET 1 TAB PO (08:20)
[2022-09-06] MEDS: Labetalol HCL 100 MG TABLET 300 MG PO ×2 (08:20→20:26)
[2022-09-06] MEDS: Primidone 50 MG TABLET 100 MG PO ×2 (08:20→20:26)
[2022-09-06] MEDS: PARoxetine HCL 40 MG TABLET PO (08:20)
[2022-09-06] MEDS: PHENobarbitaL 15 MG TABLET 45 MG PO ×2 (08:20→20:27)
[2022-09-06] MEDS: Folic Acid 1 MG TABLET PO (08:20)
[2022-09-06] MEDS: Thiamine HCL 100 MG in 0.9 % Sodium Chloride 100 ML 202 MG IV (08:20)
[2022-09-06] MEDS: 0.9 % Sodium Chloride Flush 3 ML SYRINGE IVFLUSH ×3 (08:24→19:26)
--- NOTE | 2022-09-06 08:42 | P.PNIM_ITS ---
Subjective Subjective Date of Service: 09/06/22 Interval History: withdrawal imprvoing, still jittery Physical Exam Vital Signs: Vital Signs: Last Vital Signs Temp 97.9 F 09/06/22 08:00 Pulse 72 09/06/22 08:00 Resp 20 09/06/22 08:00 BP 156/98 H 09/06/22 08:00 Pulse Ox 97 09/06/22 08:00 O2 Del Method Room Air 09/06/22 08:00 BMI result Body Mass Index 33.5 tremulous, alert oriented times 3 Objective Data Active Medications Acetaminophen (Acetaminophen 325 Mg Tablet) 650 mg PO Q6H PRN PRN Reason: Pain, Mild (Pain Scale 1-3) Atorvastatin Calcium (Atorvastatin Calcium 80 Mg Tablet) 80 mg PO BEDTIME [facility] Last Admin: 09/05/22 20:53 Dose: 80 mg Documented By: AMBER Docusate Sodium (Docusate Sodium 100 Mg Capsule) 100 mg PO DAILY PRN PRN Reason: Constipation Folic Acid (Folic Acid 1 Mg Tablet) 1 mg PO DAILY [facility] Last Admin: 09/06/22 08:20 Dose: 1 mg Documented By: KESHAWN Glucose (Glucose Gel 15 Gm Gel..Gram.) 15 gm PO Q15M PRN; Protocol PRN Reason: per Hypoglycemia Standing Ord. Hydroxyzine HCl (Hydroxyzine Hcl 50 Mg Tablet) 100 mg PO BEDTIME PRN PRN Reason: insomnia Thiamine HCl 100 mg/ Sodium (Chloride) 101 mls @ 202 mls/hr IV DAILY [facility] Stop: 09/06/22 09:29 Last Admin: 09/06/22 08:20 Dose: 202 mls/hr Documented By: KESHAWN Dextrose (D10) 250 mls @ 750 mls/hr IV Q15M PRN; Protocol PRN Reason: per Hypoglycemia Standing Ord. Insulin Human Lispro (Insulin Lispro 100 Unit/Ml 3 Ml Vial) 0 unit SUBCUT QIDACHS [facility]; Protocol Last Admin: 09/06/22 08:19 Dose: 2 unit Documented By: KESHAWN Labetalol HCl (Labetalol Hcl 100 Mg Tablet) 300 mg PO BID [facility] Last Admin: 09/06/22 08:20 Dose: 300 mg Documented By: KESHAWN Lorazepam (Lorazepam 1 Mg Tablet) 1 mg PO Q4H PRN PRN Reason: Anxiety Last Admin: 09/06/22 08:19 Dose: 1 mg Documented By: KESHAWN Multivitamins/Vitamin C (Multivitamin Tablet) 1 tab PO DAILY [facility] Last Admin: 09/06/22 08:20 Dose: 1 tab Documented By: KESHAWN Ondansetron HCl (Ondansetron Hcl 4 Mg/2 Ml Vial) 4 mg IVPUSH Q8H PRN PRN Reason: Nausea and Vomiting Pantoprazole Sodium (Pantoprazole Sodium 40 Mg/10 Ml Vial) 40 mg IVPUSH BID@0630,1630 [facility] Last Admin: 09/06/22 06:02 Dose: 40 mg Documented By: AMBER Paroxetine HCl (Paroxetine Hcl 40 Mg Tablet) 40 mg PO DAILY [facility] Last Admin: 09/06/22 08:20 Dose: 40 mg Documented By: KESHAWN Pharmacy Consult (Consult Rx Etoh Phenob Po Only) 1 each MISCELLANE ONCE PRN; Protocol PRN Reason: Consult order Phenobarbital (Phenobarbital 15 Mg Tablet) 45 mg PO BID [facility]; Protocol Stop: 09/06/22 21:01 Last Admin: 09/06/22 08:20 Dose: 45 mg Documented By: KESHAWN Phenobarbital (Phenobarbital 15 Mg Tablet) 15 mg PO BID [facility]; Protocol Stop: 09/08/22 21:01 Phenobarbital (Phenobarbital 15 Mg Tablet) 15 mg PO DAILY [facility]; Protocol Stop: 09/10/22 09:01 Primidone (Primidone 50 Mg Tablet) 100 mg PO BID [facility] Last Admin: 09/06/22 08:20 Dose: 100 mg Documented By: KESHAWN Quetiapine Fumarate (Quetiapine Fumarate 300 Mg Tablet) 300 mg PO BEDTIME PRN PRN Reason: anxiety Last Admin: 09/05/22 11:05 Dose: 300 mg Documented By: NUVIANLBRITTANY Sodium Chloride (0.9 % Sodium Chloride Flush 3 Ml Syringe) 3 ml IVFLUSH QSHIFT [facility] Last Admin: 09/06/22 08:24 Dose: 3 ml Documented By: KESHAWN Sucralfate (Sucralfate 1 Gm Tablet) 1 gm PO QIDACHS [facility] Last Admin: 09/06/22 08:19 Dose: 1 gm Documented By: KESHAWN Labs 09/06/22 06:22 09/06/22 06:23 Labs: Laboratory Results - last 24 hr 09/05/22 09/05/22 09/05/22 11:21 16:19 20:12 MCV MCH MCHC RDW Plt Count MPV Absolute Nucleated RBC Nucleated RBC % (auto) Anion Gap Estim Creat Clear Calc Estimated GFR POC Glucose 221 H 267 H 226 H Fasting Glucose Calcium 09/06/22 09/06/22 09/06/22 06:22 06:23 07:33 MCV 87.7 MCH 30.2 MCHC 34.4 RDW 12.9 Plt Count 142 L MPV 9.5 Absolute Nucleated RBC 0.000 Nucleated RBC % (auto) 0.0 Anion Gap 13 Estim Creat Clear Calc 106.5 Estimated GFR > 60 POC Glucose 184 H Fasting Glucose 187 H Calcium 8.7 Microbiology Microbiology Results: Microbiology 09/04/22 09:15 Blood Culture - Preliminary Blood - Venous No growth after 24 hours. 09/04/22 09:15 Blood Culture - Preliminary Blood - Venous No growth after 24 hours. Assessment and Plan (1) Alcohol withdrawal: Status: Acute Plan 57M PMH alcohol abuse and steatohepatitis, hypertension, hyperlipidemia, GERD, noninsulin dependent type 2 diabetes, benign essential tremor, cocaine abuse, and hx hepatitis admitted for etoh withdrawal and alcoholic gastritis with hematemesis. etoh dependence, steatohepatitis with withdrawal phenobarb, ciwa Acute hematemesis- likely gastritis vs MWT H/H stable, stool occult blood positive, no further blood advanced po solids changed to po ppi hold off on egd for now DM insulin htn labetolol obesity weight loss tremor primidone, labetolol DVT prophylaxis- SCPs given hematemesis/heme positive stool Full code reason for continued hospitalization: active withdrawal Time Spent With Patient Time: Total time managing care of this patient today ____ minutes. Quality Stroke Does the patient have a stroke diagnosis?: No VTE Prior VTE?: No VTE Risk Level:: Medical - moderate - high VTE Device Contraindication: N/A - Device Ordered VTE Drug Contraindication: Treatment Not Indicated
--- NOTE | 2022-09-06 09:29 | MHC.RECOVSUP ---
Addendum entered by Josse Gold 09/06/22 11:14: Referral sent to [facility] Original Note: Met with pt in 484 after consult placed to Addiction Medicine for alcohol and cocaine use and seen by Laure. Pt informs he is interested in CSS at [facility], T/W will send over refferal packet for admission. Provided pt with recovery resources, pt has no other questions or concerns at this time.
--- NOTE | 2022-09-06 11:29 | MHC.CLN ---
NUTRITION CHANGED DIET TO DM 2000 KCALS. PATIENT WITH ELEVATED BG AND HAS RECEIVED INSULIN.
[2022-09-06 11:45] LABS: Glucose, Whole Blood 252 mg/dL (60-115)
[2022-09-06 12:00] VITALS: BP 148/84; PULSE 73; RESP 20; TEMP 36.6; O2SAT 95
[2022-09-06 15:58] VITALS: BP 180/84; PULSE 74; RESP 18; TEMP 36.4; O2SAT 97
[2022-09-06 16:57] LABS: Glucose, Whole Blood 242 mg/dL (60-115)
[2022-09-06 19:40] VITALS: BP 140/92; PULSE 75; RESP 18; TEMP 36.7; O2SAT 98
[2022-09-06] MEDS: Atorvastatin Calcium 80 MG TABLET PO (20:27)
[2022-09-06 20:40] LABS: Glucose, Whole Blood 280 mg/dL (60-115)
[2022-09-06 23:21] VITALS: BP 167/91; PULSE 71; RESP 18; TEMP 37; O2SAT 98
[2022-09-07] MEDS: QUEtiapine Fumarate 300 MG TABLET PO (00:11)
[2022-09-07 04:00] VITALS: BP 118/69; PULSE 61; RESP 20; TEMP 36.6; O2SAT 94
[2022-09-07] MEDS: Omeprazole 40 MG CAPSULE.DR PO (05:22)
[2022-09-07 06:39] LABS: Hematocrit 34.8 % (42.0-52.0); Mean Corpuscular HGB Conc 34.5 g/dl (31.0-36.0); Mean Corpuscular Hemoglobin 30.8 pg (27.0-33.0); Mean Corpuscular Volume 89.2 fL (80.0-98.0); Mean Platelet Volume 9.5 fL (9.4-12.4); Platelet Count 149 X10*3/uL (160-400); White Blood Count 4.5 X10*3/uL (4.8-10.8)
[2022-09-07 07:01] LABS: Alanine Aminotransferase 41 U/L (0-40); Alkaline Phosphatase 57 U/L (39-117); Anion Gap 11 (12-20); Aspartate Amino Transferase 32 U/L (5-37); Bilirubin Direct 0.2 mg/dL (0.0-0.5); Bilirubin Total 0.4 mg/dL (0.0-1.0); Blood Urea Nitrogen 8 mg/dL (9-16); Calcium 8.9 mg/dL (8.4-10.2); Carbon Dioxide 28 mmol/L (22-29); Chloride 105 mmol/L (96-108); Creatinine Clr Calc Pharmacy 115.8; Estimated Glomerular Filt Rate > 60; Glucose Fasting 178 mg/dL (60-99); Magnesium 1.6 mg/dL (1.6-2.6); Potassium 3.4 mmol/L (3.3-5.1); Sodium 141 mmol/L (135-145); Total Protein 6.1 g/dL (6.5-8.0)
[2022-09-07 07:27] VITALS: BP 125/84; PULSE 76; RESP 20; TEMP 36.9; O2SAT 94
[2022-09-07 07:56] LABS: Glucose, Whole Blood 156 mg/dL (60-115)
[2022-09-07] MEDS: Labetalol HCL 100 MG TABLET 300 MG PO ×2 (08:20→21:43)
[2022-09-07] MEDS: Multivitamin TABLET 1 TAB PO (08:20)
[2022-09-07] MEDS: PHENobarbitaL 15 MG TABLET PO (08:20)
[2022-09-07] MEDS: Folic Acid 1 MG TABLET PO (08:20)
[2022-09-07] MEDS: PARoxetine HCL 40 MG TABLET PO (08:20)
[2022-09-07] MEDS: Primidone 50 MG TABLET 100 MG PO ×2 (08:21→21:43)
[2022-09-07] MEDS: Sucralfate 1 GM TABLET PO ×4 (08:21→21:41)
[2022-09-07] MEDS: Insulin Lispro 100 UNIT/ML 3 ML VIAL SUBCUT ×4 (08:22→21:41)
[2022-09-07] MEDS: 0.9 % Sodium Chloride Flush 3 ML SYRINGE IVFLUSH ×2 (08:22→15:34)
--- NOTE | 2022-09-07 09:44 | PM.DS ---
DS: Providers Provider Date of Service: 09/07/22 Date of admission: 09/04/22 13:21 Primary care physician: Unknown Physician Consults: 09/04/22 13:21 Consult to Gastroenterology Routine Consulting Provider: Rehan Looney Reason for consultation: alcoholic gastritis, hematemesis 09/04/22 13:34 Addiction Medicine Routine Consulting Provider: Addiction Covering Reason for consultation: etoh dependence, cocaine abuse DS: Diagnosis Discharge Diagnosis (1) Alcohol withdrawal: Status: Acute DS: Summary Hospital Course Hospital Course: from initial hpi: 57-year-old male with a past medical history of alcohol abuse, hypertension, hyperlipidemia, GERD, noninsulin dependent type 2 diabetes, benign essential tremor, cocaine abuse, and hx hepatitis who presents to the emergency department presenting to the ED requesting ETOH detox.? Admits to drinking a 12 pack and pint of bourbon daily, last drink at 02:00AM.? Patient reports epigastric abdominal pain, nausea, and girlfriend endorses hematemesis last night and early this morning. He states he has a pattern of binge drinking where he will quit drinking for 3-4 week and then binge again. Resumed etoh consumption 3-4 days ago. Has used naltrexone and AA to help with cessation in the past. He desires detox.? On arrival, patient hypertensive to 176/96, tachycardic to 110 (sinus), vitals otherwise stable.? He has a leukocytosis of 13.3.? Renal function normal, electrolyte levels normal.? Initial lactic acid 4.6, improved to 2.9 following IV fluids.? Hepatic function within normal limits.? Urinalysis unremarkable except for 2+ protein, stool occult blood positive.? Urine tox screen positive for barbiturates, benzodiazepines, cocaine CT abdomen/pelvis is negative for any acute intra-abdominal process but did show mild constipation.? In the ED, has been treated with lorazepam, IV ppi, IV NS, and has been started on phenobarbital for protocol. hospital course: patient was admitted for etoh dependence with acute etoh withdrawal and steatohepatitis. he was treated with phenobarbital and withdrawal has resolved. also presented with acute hematemsis likely due to gastritis vs malloryweiss tear. treated with ppi, hgb remained stable. for DM treated with insulin, for htn treated with labetolol, for obesity weight loss recommended, for tremor continued on primidone and labetolol. patient is feeling better and will be discharged home. Time Spent with Patient Time attestation: Total time managing care of this patient today ____ minutes. Discharge coordination time: Greater than 30 minutes Quality: Safe Use of Opioids Does Pt have an Active Cancer Diagnosis on the Problem List?: No Quality: Stroke Does the patient have a stroke diagnosis?: No Physical Exam Vital Signs: Vital Signs: Last Vital Signs Temp 98.5 F 09/07/22 07:27 Pulse 76 09/07/22 07:27 Resp 20 09/07/22 07:27 BP 125/84 09/07/22 07:27 Pulse Ox 94 09/07/22 07:27 O2 Del Method Room Air 09/07/22 07:27 BMI result Body Mass Index 33.5 General: AO X 3, no acute distress Resp: CTA bilateral, no accessory muscles used CVS: S1,S2,RRR GI: soft, non tender, non distended Neuro: motor grossly intact, alert Psych: appropriate affect, appropriate insight DS: Data Data Completed and Pending Completed studies during hospitalization [Text1]: Procedures Detoxification Services for Substance Abuse Treatment (06/06/22) Drainage of Right Axilla, Open Approach (10/22/21) Labs on day of discharge: Laboratory Results - last 24 hr 09/06/22 09/06/22 09/06/22 11:24 16:44 20:37 WBC RBC Hgb Hct MCV MCH MCHC RDW Plt Count MPV Absolute Nucleated RBC Nucleated RBC % (auto) Sodium Potassium Chloride Carbon Dioxide Anion Gap BUN Creatinine Estim Creat Clear Calc Estimated GFR POC Glucose 252 H 242 H 280 H Fasting Glucose Calcium Magnesium Total Bilirubin Direct Bilirubin AST ALT Alkaline Phosphatase Total Protein Albumin 09/07/22 09/07/22 09/07/22 06:16 06:16 07:44 WBC 4.5 L RBC 3.90 L Hgb 12.0 L Hct 34.8 L MCV 89.2 MCH 30.8 MCHC 34.5 RDW 13.0 Plt Count 149 L MPV 9.5 Absolute Nucleated RBC 0.000 Nucleated RBC % (auto) 0.0 Sodium 141 Potassium 3.4 Chloride 105 Carbon Dioxide 28 Anion Gap 11 L BUN 8 L Creatinine 0.80 Estim Creat Clear Calc 115.8 Estimated GFR > 60 POC Glucose 156 H Fasting Glucose 178 H Calcium 8.9 Magnesium 1.6 Total Bilirubin 0.4 Direct Bilirubin 0.2 AST 32 ALT 41 H Alkaline Phosphatase 57 Total Protein 6.1 L Albumin 4.0 Preliminary micro results at discharge 09/04/22 09:15 Blood Culture - Preliminary Blood - Venous No growth after 48 hours. 09/04/22 09:15 Blood Culture - Preliminary Blood - Venous No growth after 48 hours. Discharge Plan Discharge Anticipated Discharge Date/Time: 09/07/22 09:42 Patient Disposition: Home, Self-Care Discharge Diagnosis: etoh withdrawal Referrals: Physician,Unknown J [Primary Care Provider] - 1 Week Discharge Medications: Continued rosuvastatin 20 mg tablet 20 mg PO BEDTIME 30 Days Qty: 30 3RF metformin 500 mg tablet 500 mg PO BID Qty: 180 1RF hydroxyzine pamoate 50 mg capsule 100 mg PO BEDTIME PRN (Reason: insomnia) naltrexone 50 mg tablet 50 mg PO DAILY Qty: 30 0RF paroxetine HCl 40 mg tablet 40 mg PO DAILY Qty: 30 0RF omeprazole 20 mg Capsule,Delayed Release(Dr/Ec) 20 mg PO DAILY quetiapine 100 mg tablet 300 mg PO BEDTIME PRN (Reason: anxiety) labetalol 300 mg tablet 300 mg PO BID multivitamin Tablet 1 tab PO DAILY primidone 50 mg tablet 100 mg PO BID 30 Days Qty: 120 6RF Discharge Orders: Discharge Order (Routine); Ordered 09/07/22 Ordered By: Herson Worthy Diet: Advance to usual diet Activity on Discharge: As tolerated Stand Alone Forms: Patient Portal Discharge page Care Plan Goals: reocvery Health Concerns: etoh Plan of Treatment: avoid etoh Assessment: see above
[2022-09-07 11:03] VITALS: BP 158/84; PULSE 70; RESP 20; TEMP 36.6; O2SAT 97
[2022-09-07 11:06] LABS: Glucose, Whole Blood 275 mg/dL (60-115)
--- NOTE | 2022-09-07 13:37 | MHC.CM.PN ---
Pt medically cleared for D/C home, s/o to transport. Plan is for pt to go to detox center when bed is available.
[2022-09-07] MEDS: chlordiazePOXIDE HCl 25 MG CAPSULE PO (13:58)
--- NOTE | 2022-09-07 14:40 | MHC.RECOVSUP ---
Addendum entered by Josse Gold 09/07/22 16:08: Pt has finished he phone screen with [facility] and was told they will review his information and contact him when they have a bed for him. Was told it might take a few days. Addendum entered by Josse Gold 09/07/22 15:52: PT is currently doing a phone screen with [facility] for CSS. Original Note: Met with pt in 484 to review CSS options and provided a list of facilities that were faxed his referral. Referral was sent to [facility], [facility], [facility], and [facility] for [facility]. pt informed to follow up from the community if he dc today.
--- NOTE | 2022-09-07 15:08 | P.PNIM_ITS ---
Subjective Subjective Date of Service: 09/07/22 Interval History: cancelling discharged for worsening withdrawal Physical Exam Vital Signs: Vital Signs: Last Vital Signs Temp 97.9 F 09/07/22 11:03 Pulse 70 09/07/22 11:03 Resp 20 09/07/22 11:03 BP 158/84 H 09/07/22 11:03 Pulse Ox 97 09/07/22 11:03 O2 Del Method Room Air 09/07/22 11:03 BMI result Body Mass Index 33.5 AO times 3, tremulous, anxious Objective Data Active Medications Acetaminophen (Acetaminophen 325 Mg Tablet) 650 mg PO Q6H PRN PRN Reason: Pain, Mild (Pain Scale 1-3) Atorvastatin Calcium (Atorvastatin Calcium 80 Mg Tablet) 80 mg PO BEDTIME [facility] Last Admin: 09/06/22 20:27 Dose: 80 mg Documented By: CHRISTINA Docusate Sodium (Docusate Sodium 100 Mg Capsule) 100 mg PO DAILY PRN PRN Reason: Constipation Folic Acid (Folic Acid 1 Mg Tablet) 1 mg PO DAILY [facility] Last Admin: 09/07/22 08:20 Dose: 1 mg Documented By: DEVAUGHN Glucose (Glucose Gel 15 Gm Gel..Gram.) 15 gm PO Q15M PRN; Protocol PRN Reason: per Hypoglycemia Standing Ord. Hydroxyzine HCl (Hydroxyzine Hcl 50 Mg Tablet) 100 mg PO BEDTIME PRN PRN Reason: insomnia Dextrose (D10) 250 mls @ 750 mls/hr IV Q15M PRN; Protocol PRN Reason: per Hypoglycemia Standing Ord. Insulin Human Lispro (Insulin Lispro 100 Unit/Ml 3 Ml Vial) 0 unit SUBCUT QIDACHS [facility]; Protocol Last Admin: 09/07/22 13:59 Dose: 6 unit Documented By: DEVAUGHN Labetalol HCl (Labetalol Hcl 100 Mg Tablet) 300 mg PO BID [facility] Last Admin: 09/07/22 08:20 Dose: 300 mg Documented By: DEVAUGHN Lorazepam (Lorazepam 1 Mg Tablet) 1 mg PO Q4H PRN PRN Reason: Anxiety Last Admin: 09/06/22 21:52 Dose: 1 mg Documented By: CHRISTINA Multivitamins/Vitamin C (Multivitamin Tablet) 1 tab PO DAILY [facility] Last Admin: 09/07/22 08:20 Dose: 1 tab Documented By: DEVAUGHN Omeprazole (Omeprazole 40 Mg Capsule.Dr) 40 mg PO DAILY@0630 [facility] Last Admin: 09/07/22 05:22 Dose: 40 mg Documented By: CHRISTINA Ondansetron HCl (Ondansetron Hcl 4 Mg/2 Ml Vial) 4 mg IVPUSH Q8H PRN PRN Reason: Nausea and Vomiting Paroxetine HCl (Paroxetine Hcl 40 Mg Tablet) 40 mg PO DAILY [facility] Last Admin: 09/07/22 08:20 Dose: 40 mg Documented By: DEVAUGHN Pharmacy Consult (Consult Rx Etoh Phenob Po Only) 1 each MISCELLANE ONCE PRN; Protocol PRN Reason: Consult order Pharmacy Consult (Consult Rx Etoh Phenob Im/Po) 1 each MISCELLANE ONCE PRN; P rotocol PRN Reason: Consult order Primidone (Primidone 50 Mg Tablet) 100 mg PO BID [facility] Last Admin: 09/07/22 08:21 Dose: 100 mg Documented By: DEVAUGHN Quetiapine Fumarate (Quetiapine Fumarate 300 Mg Tablet) 300 mg PO BEDTIME PRN PRN Reason: anxiety Last Admin: 09/07/22 00:11 Dose: 300 mg Documented By: CHRISTINA Sodium Chloride (0.9 % Sodium Chloride Flush 3 Ml Syringe) 3 ml IVFLUSH QSHIFT [facility] Last Admin: 09/07/22 08:22 Dose: 3 ml Documented By: DEVAUGHN Sucralfate (Sucralfate 1 Gm Tablet) 1 gm PO QIDACHS [facility] Last Admin: 09/07/22 13:59 Dose: 1 gm Documented By: DEVAUGHN Labs 09/07/22 06:16 09/07/22 06:16 Labs: Laboratory Results - last 24 hr 09/06/22 09/06/22 09/07/22 16:44 20:37 06:16 MCV 89.2 MCH 30.8 MCHC 34.5 RDW 13.0 Plt Count 149 L MPV 9.5 Absolute Nucleated RBC 0.000 Nucleated RBC % (auto) 0.0 Anion Gap Estim Creat Clear Calc Estimated GFR POC Glucose 242 H 280 H Fasting Glucose Calcium Magnesium Total Bilirubin Direct Bilirubin AST ALT Alkaline Phosphatase Total Protein Albumin 09/07/22 09/07/22 09/07/22 06:16 07:44 10:54 MCV MCH MCHC RDW Plt Count MPV Absolute Nucleated RBC Nucleated RBC % (auto) Anion Gap 11 L Estim Creat Clear Calc 115.8 Estimated GFR > 60 POC Glucose 156 H 275 H Fasting Glucose 178 H Calcium 8.9 Magnesium 1.6 Total Bilirubin 0.4 Direct Bilirubin 0.2 AST 32 ALT 41 H Alkaline Phosphatase 57 Total Protein 6.1 L Albumin 4.0 Microbiology Microbiology Results: Microbiology 09/04/22 09:15 Blood Culture - Preliminary Blood - Venous No growth after 48 hours. 09/04/22 09:15 Blood Culture - Preliminary Blood - Venous No growth after 48 hours. Assessment and Plan (1) Alcohol withdrawal: Status: Acute Plan 57M PMH alcohol abuse and steatohepatitis, hypertension, hyperlipidemia, GERD, noninsulin dependent type 2 diabetes, benign essential tremor, cocaine abuse, and hx hepatitis admitted for etoh withdrawal and alcoholic gastritis with hematemesis. etoh dependence, steatohepatitis with withdrawal had significant improvement, plan was for discharge today, prior to discharge started to have significant withdrawal again, CIWA 16 restart phenobarb, moniot ciwa Acute hematemesis- likely gastritis vs MWT H/H stable, stool occult blood positive, no further blood advanced po solids changed to po ppi hold off on egd for now DM insulin htn labetolol obesity weight loss tremor primidone, labetolol DVT prophylaxis- mechanical due to hematemesis Full code reason for continued hospitalization: active withdrawal Time Spent With Patient Time: Total time managing care of this patient today ____ minutes. Quality Stroke Does the patient have a stroke diagnosis?: No VTE Prior VTE?: No VTE Risk Level:: Medical - moderate - high VTE Device Contraindication: N/A - Device Ordered VTE Drug Contraindication: Treatment Not Indicated
[2022-09-07 15:14] VITALS: BP 157/81; PULSE 72; RESP 20; TEMP 36.4; O2SAT 96
[2022-09-07] MEDS: PHENobarbitaL sodium 130 MG/ML IM ONCE 211 MG IM (15:29)
[2022-09-07 16:13] LABS: Glucose, Whole Blood 242 mg/dL (60-115)
[2022-09-07] MEDS: PHENobarbitaL sodium 130 MG/ML VIAL IM Q3Hx2 158 MG IM ×2 (18:41→21:45)
[2022-09-07 19:14] VITALS: BP 169/94; PULSE 75; RESP 20; TEMP 36.9; O2SAT 98
[2022-09-07 19:38] LABS: Glucose, Whole Blood 328 mg/dL (60-115)
[2022-09-07 21:11] LABS: Glucose, Whole Blood 352 mg/dL (60-115)
[2022-09-07] MEDS: Atorvastatin Calcium 80 MG TABLET PO (21:41)
[2022-09-07 23:47] VITALS: BP 135/76; PULSE 68; RESP 20; TEMP 36.2; O2SAT 96
[2022-09-08] MEDS: QUEtiapine Fumarate 300 MG TABLET PO (00:01)
[2022-09-08 03:46] VITALS: BP 114/73; PULSE 57; RESP 20; TEMP 36.2; O2SAT 96
[2022-09-08] MEDS: Omeprazole 40 MG CAPSULE.DR PO (06:41)
[2022-09-08] MEDS: Sucralfate 1 GM TABLET PO ×2 (06:41→11:57)
[2022-09-08 07:21] LABS: Hemoglobin 12.3 g/dl (14.0-18.0); Mean Corpuscular HGB Conc 34.2 g/dl (31.0-36.0); Mean Corpuscular Hemoglobin 30.1 pg (27.0-33.0); Mean Platelet Volume 9.4 fL (9.4-12.4); Platelet Count 159 X10*3/uL (160-400); Red Blood Count 4.09 X10*6/uL (4.60-5.80); Red Cell Distribution Width 13.1 % (11.0-16.0); White Blood Count 5.1 X10*3/uL (4.8-10.8)
[2022-09-08 07:31] VITALS: BP 115/80; PULSE 73; RESP 19; TEMP 36.3; O2SAT 96
[2022-09-08 07:33] LABS: Anion Gap 14 (12-20); Blood Urea Nitrogen 9 mg/dL (9-16); Carbon Dioxide 28 mmol/L (22-29); Chloride 104 mmol/L (96-108); Creatinine Clr Calc Pharmacy 120.3; Estimated Glomerular Filt Rate > 60; Glucose Fasting 156 mg/dL (60-99); Potassium 3.7 mmol/L (3.3-5.1); Sodium 142 mmol/L (135-145)
[2022-09-08 07:50] LABS: Glucose, Whole Blood 158 mg/dL (60-115)
[2022-09-08] MEDS: Multivitamin TABLET 1 TAB PO (08:17)
[2022-09-08] MEDS: Primidone 50 MG TABLET 100 MG PO (08:17)
[2022-09-08] MEDS: Labetalol HCL 100 MG TABLET 300 MG PO (08:17)
[2022-09-08] MEDS: Insulin Lispro 100 UNIT/ML 3 ML VIAL SUBCUT ×2 (08:17→11:57)
[2022-09-08] MEDS: PHENobarbitaL 15 MG TABLET 45 MG PO (08:17)
[2022-09-08] MEDS: Folic Acid 1 MG TABLET PO (08:17)
[2022-09-08] MEDS: PARoxetine HCL 40 MG TABLET PO (08:17)
[2022-09-08] MEDS: 0.9 % Sodium Chloride Flush 3 ML SYRINGE IVFLUSH (08:18)
--- NOTE | 2022-09-08 10:24 | MHC.CM.PN ---
Addendum entered by Sangeetha Limon RN 09/08/22 13:29: PT DISCHARGING VIA [facility] AT 1330 AND WILL WAIT FOR CALL FROM [facility] PROGRAM FOR BED. Addendum entered by Sangeetha Limon RN 09/08/22 11:00: PER RECOVERY TEAM PT MAY HAVE A BED TODAY AT [facility] AND PT SHOULD BE ABLE TO BE DISCHARGED TO [facility] TODAY, RECOVERY TEAM TO ARRANGE TRANSPORT. Original Note: PT MEDICALLY CLEARED FOR D/C HOME SELF CARE, PER PREVIOUS RECOVERY NOTE PT IS WAITING FOR A CALL FROM [facility]S [facility] PRO[facility] FOR OPEN BED & INFORMATION GIVEN TO PT, S.O. FOR TRANSPORT.
--- NOTE | 2022-09-08 10:37 | PM.DS ---
DS: Providers Provider Date of Service: 09/08/22 Date of admission: 09/04/22 13:21 Primary care physician: ANG Rivera Consults: 09/04/22 13:21 Consult to Gastroenterology Routine Consulting Provider: Rehan Looney Reason for consultation: alcoholic gastritis, hematemesis 09/04/22 13:34 Addiction Medicine Routine Consulting Provider: Addiction Covering Reason for consultation: etoh dependence, cocaine abuse DS: Diagnosis Discharge Diagnosis (1) Alcohol withdrawal: Status: Acute (2) Occult blood positive stool: Status: Acute (3) Hematemesis: Status: Acute (4) Alcohol use disorder, severe, dependence: Status: Acute DS: Summary Hospital Course Hospital Course: from initial hpi: 57-year-old male with a past medical history of alcohol abuse, hypertension, hyperlipidemia, GERD, noninsulin dependent type 2 diabetes, benign essential tremor, cocaine abuse, and hx hepatitis who presents to the emergency department presenting to the ED requesting ETOH detox.? Admits to drinking a 12 pack and pint of bourbon daily, last drink at 02:00AM.? Patient reports epigastric abdominal pain, nausea, and girlfriend endorses hematemesis last night and early this morning. He states he has a pattern of binge drinking where he will quit drinking for 3-4 week and then binge again. Resumed etoh consumption 3-4 days ago. Has used naltrexone and AA to help with cessation in the past. He desires detox.? On arrival, patient hypertensive to 176/96, tachycardic to 110 (sinus), vitals otherwise stable.? He has a leukocytosis of 13.3.? Renal function normal, electrolyte levels normal.? Initial lactic acid 4.6, improved to 2.9 following IV fluids.? Hepatic function within normal limits.? Urinalysis unremarkable except for 2+ protein, stool occult blood positive.? Urine tox screen positive for barbiturates, benzodiazepines, cocaine CT abdomen/pelvis is negative for any acute intra-abdominal process but did show mild constipation.? In the ED, has been treated with lorazepam, IV ppi, IV NS, and has been started on phenobarbital for protocol. hospital course: patient was admitted for etoh dependence with acute etoh withdrawal and steatohepatitis. he was treated with phenobarbital and withdrawal has resolved as he was able to ambulate and tolerate diet. He also presented with acute hematemsis likely due to gastritis vs malloryweiss tear. treated with ppi, hgb remained stable. evaluated by GI who recommended to continue PO PPI and no intervention inpatient as Hb remained stable. for DM treated with insulin, for htn treated with labetolol, for obesity weight loss recommended, for tremor continued on primidone and labetolol. patient is feeling better and will be discharged home on folic acid. Time Spent with Patient Time attestation: Total time managing care of this patient today ____ minutes. Discharge coordination time: Greater than 30 minutes Quality: Safe Use of Opioids Does Pt have an Active Cancer Diagnosis on the Problem List?: No Quality: Stroke Does the patient have a stroke diagnosis?: No Physical Exam Vital Signs: Vital Signs: Last Vital Signs Temp 97.3 F 09/08/22 07:31 Pulse 73 09/08/22 07:31 Resp 19 09/08/22 07:31 BP 115/80 09/08/22 07:31 Pulse Ox 96 09/08/22 07:31 O2 Del Method Room Air 09/08/22 07:31 BMI result Body Mass Index 33.5 Const: Other: Constitutional : Awake, interactive, not in distress Neck : Normal inspection, Supple Cardiovascular : RRR, no JVP, no lower extremity edema Respiratory : good bilateral air entry, no crackles, wheezes or rhonchi Gastrointestinal: soft, lax, Normal bowel sounds, Non tender Skin : Warm, Dry Neurological : Alert & oriented x3, No focal deficit DS: Data Data Completed and Pending Completed studies during hospitalization [Text1]: Procedures Detoxification Services for Substance Abuse Treatment (06/06/22) Drainage of Right Axilla, Open Approach (10/22/21) Labs on day of discharge: Laboratory Results - last 24 hr 09/07/22 09/07/22 09/07/22 10:54 16:09 19:34 WBC RBC Hgb Hct MCV MCH MCHC RDW Plt Count MPV Absolute Nucleated RBC Nucleated RBC % (auto) Sodium Potassium Chloride Carbon Dioxide Anion Gap BUN Creatinine Estim Creat Clear Calc Estimated GFR POC Glucose 275 H 242 H 328 H Fasting Glucose Calcium 09/07/22 09/08/22 09/08/22 21:07 06:41 06:41 WBC 5.1 RBC 4.09 L Hgb 12.3 L Hct 36.0 L MCV 88.0 MCH 30.1 MCHC 34.2 RDW 13.1 Plt Count 159 L MPV 9.4 Absolute Nucleated RBC 0.000 Nucleated RBC % (auto) 0.0 Sodium 142 Potassium 3.7 Chloride 104 Carbon Dioxide 28 Anion Gap 14 BUN 9 Creatinine 0.77 Estim Creat Clear Calc 120.3 Estimated GFR > 60 POC Glucose 352 H* Fasting Glucose 156 H Calcium 9.0 09/08/22 07:30 WBC RBC Hgb Hct MCV MCH MCHC RDW Plt Count MPV Absolute Nucleated RBC Nucleated RBC % (auto) Sodium Potassium Chloride Carbon Dioxide Anion Gap BUN Creatinine Estim Creat Clear Calc Estimated GFR POC Glucose 158 H Fasting Glucose Calcium Preliminary micro results at discharge 09/04/22 09:15 Blood Culture - Preliminary Blood - Venous No growth after 48 hours. 09/04/22 09:15 Blood Culture - Preliminary Blood - Venous No growth after 48 hours. Imaging XR: Radiologist's impression: ITS Impressions Abdomen/Pelvis CT 09/04/22 10:04 IMPRESSION: 1. No acute intra-abdominal process seen. 2. Mild constipation. Fleischner guidelines were followed. Discharge Plan Discharge Anticipated Discharge Date/Time: 09/07/22 09:42 Patient Disposition: Home, Self-Care Discharge Diagnosis: etoh withdrawal Referrals: Physician,Unknown J [Physician] - 1 Week Discharge Medications: New folic acid 1 mg Tablet 1 mg PO DAILY 30 Days Qty: 30 0RF Continued rosuvastatin 20 mg tablet 20 mg PO BEDTIME 30 Days Qty: 30 3RF metformin 500 mg tablet 500 mg PO BID Qty: 180 1RF hydroxyzine pamoate 50 mg capsule 100 mg PO BEDTIME PRN (Reason: insomnia) naltrexone 50 mg tablet 50 mg PO DAILY Qty: 30 0RF paroxetine HCl 40 mg tablet 40 mg PO DAILY Qty: 30 0RF omeprazole 20 mg Capsule,Delayed Release(Dr/Ec) 20 mg PO DAILY quetiapine 100 mg tablet 300 mg PO BEDTIME PRN (Reason: anxiety) labetalol 300 mg tablet 300 mg PO BID multivitamin Tablet 1 tab PO DAILY primidone 50 mg tablet 100 mg PO BID 30 Days Qty: 120 6RF Discharge Orders: Discharge Order (Routine); Ordered 09/08/22 Ordered By: Erendira Vivas Diet: Advance to usual diet Activity on Discharge: As tolerated Stand Alone Forms: Patient Portal Discharge page Care Plan Goals: recovery Health Concerns: etoh abuse Plan of Treatment: avoid alcohol increase physical activity Assessment: see above Patient Instructions: Alcohol Withdrawal (DC)
--- NOTE | 2022-09-08 11:08 | MHC.RECOVSUP ---
Met with pt in 484 as he is set to discharge today. Pt is comfortable with discharge as he is confident he will get a bed with [facility] after his phone screen yesterday. Pt was encouraged to follow up with the other facilities if he doesn't hear back and to contact T/W if he has any trouble or questions.
[2022-09-08 11:38] VITALS: BP 120/77; PULSE 67; RESP 20; TEMP 36.3; O2SAT 97
[2022-09-08 11:54] LABS: Glucose, Whole Blood 340 mg/dL (60-115)
== END 2022-09-08 13:34 | disposition home or self-care (01) | DRG 241 ==
LOC: HO.ED 11:35 → HO.EDOVER 13:39 → HO.IMC 15:37
PROVIDERS: Internal Medicine; Physician Assistant; Student in an Organized Health Care Education/Training Program; Admitting Provider Physician Assistant; Emergency Provider Internal Medicine; PCP Nurse Practitioner Family; Visit Provider Student in an Organized Health Care Education/Training Program
DX: K29.21 Alcoholic gastritis with bleeding (principal); E87.20 Acidosis, unspecified; K76.0 Fatty (change of) liver, not elsewhere classified; F10.239 Alcohol dependence with withdrawal, unspecified; I10 Essential (primary) hypertension; F14.10 Cocaine abuse, uncomplicated; G25.0 Essential tremor; K22.6 Gastro-esophageal laceration-hemorrhage syndrome; E11.9 Type 2 diabetes mellitus without complications; E66.9 Obesity, unspecified; Z68.33 Body mass index [BMI] 33.0-33.9, adult; E86.0 Dehydration; E78.2 Mixed hyperlipidemia; Y90.6 Blood alcohol level of 120-199 mg/100 ml; Z79.84 Long term (current) use of oral hypoglycemic drugs; Z79.899 Other long term (current) drug therapy
CPT/HCPCS: 36415; 74177; 80048; 80053; 80076; 80143; 80179; 80307; 81001; 82272; 82947; 83605; 83690; 83735; 84484; 85025; 85027; 85610; 87040; 93005; 99285; J2060; J2560; J3411; Q9967

== ENCOUNTER 2022-09-11 13:55 | Emergency (ER) | payer OTHER, SELFPAY ==
--- NOTE | ~2022-09-11 | CT_ITS ---
EXAMINATION: CT CERVICAL SPINE WITHOUT CONTRAST CLINICAL INFORMATION: Fall with pain COMPARISON: None available. TECHNIQUE: CT cervical spine with coronal and sagittal reconstructions. This CT examination was performed using dose optimization techniques as appropriate, variously including the following: *Automated exposure control *Adjustment of mA and/or kV according to patient size (this includes techniques or standardized protocols for targeted exams where dose is matched to indication/reason for exam; i.e. extremities or head) *Use of iterative reconstruction technique DLP: 637.49 mGy-cm FINDINGS: No abnormal prevertebral soft tissue swelling is seen. Paraspinal muscle fat planes are maintained. No acute cervical spine fracture is noted. There is degenerative spurring seen about the anterior C1-C2 articulation. There is disc space narrowing at the C5-C6 level. Mild spurring is present however no significant bony encroachment upon the neural foramina is are identified. There is anterior bony bridge at the C2-C3 level. Carotid artery calcifications present. Visualized thyroid gland unremarkable. No apical lung lesion seen. CT/CT cervical spine wo IV con IMPRESSION: No acute cervical spine fracture identified. Mild cervical spondylosis. Fleischner guidelines were followed.
--- NOTE | ~2022-09-11 | CT_ITS ---
EXAMINATION: CT HEAD WITHOUT CONTRAST CLINICAL INFORMATION: Fall COMPARISON: December 11, 2021 TECHNIQUE: Contiguous axial imaging was performed from the skull base to vertex without intravenous administration of contrast. This CT examination was performed using dose optimization techniques as appropriate, variously including the following: *Automated exposure control *Adjustment of mA and/or kV according to patient size (this includes techniques or standardized protocols for targeted exams where dose is matched to indication/reason for exam; i.e. extremities or head) *Use of iterative reconstruction technique DLP: 748.49 mGy-cm FINDINGS: No intracranial hemorrhage is identified. No abnormal extra-axial fluid collection is seen. The ventricles, sulci, and cisterns appear unremarkable. Wilson-white matter interface is maintained. The calvarium is intact. Paranasal sinuses and mastoid air cells unremarkable. CT/CT head/brain wo IV con IMPRESSION: No acute intracranial pathology.
--- NOTE | ~2022-09-11 | CT_ITS ---
EXAMINATION: CT FACIAL BONES WITHOUT CONTRAST CLINICAL INFORMATION: Status post fall with pain COMPARISON: None available. TECHNIQUE: CT facial bones with coronal and sagittal reconstructions This CT examination was performed using dose optimization techniques as appropriate, variously including the following: *Automated exposure control *Adjustment of mA and/or kV according to patient size (this includes techniques or standardized protocols for targeted exams where dose is matched to indication/reason for exam; i.e. extremities or head) *Use of iterative reconstruction technique DLP: 381.54 mGy-cm FINDINGS: There is incontinuity of the right lateral pterygoid plate with no adjacent edematous change or muscle enlargement and this is likely a chronic finding. No evidence of acute or chronic fracture of the left pterygoid plate is identified. The paranasal sinuses and mastoid air cells are well aerated. Calcified nasal septum is midline in position. No nasal bone fracture or mandibular fracture is appreciated. The orbits appear unremarkable. No intraconal abnormality is seen. The ostiomeatal complexes are patent. Maxilla and maxillary spine unremarkable. CT/CT facial bones wo IV con IMPRESSION: No acute facial bone fracture appreciated. Discontinuity of the right lateral pterygoid plate which may be secondary to previous trauma.
--- NOTE | 2022-09-11 14:00 | ED_ITS ---
HPI - General Adult General Chief complaint: ETOH/Substance Use Stated complaint: detox, ETOH Time Seen by Provider: 09/11/22 15:24 Source: patient and RN notes reviewed Mode of arrival: ambulatory Limitations: no limitations History of Present Illness HPI narrative: This is a 57-year-old male, with a past medical history of alcohol abuse, hypertension, hyperlipidemia, GERD, diabetes, and? hepatitis, who presents to the emergency department today with complaints alcohol withdrawal symptoms since today.? Patient reports that he typically drinks a pack of hearts ulcers and several naps of hard liquor per day. , reports that he drink half a pack just 1 hour prior to arrival. He endorses some agitation, auditory and visual hallucinations. He admits that he fell yesterday and hit his face. He denies any headaches, vision changes, chest pain, shortness of breath, palpitations, abdominal pain, diarrhea. He does endorse some nausea. He is extremely interested in detox and has been calling several detox facilities but they have been unable to place him. No other complaints or concerns at this time. MD complaint: Etoh abuse Relieving factors: none Exacerbating factors: none Associated symptoms: denies other symptoms Treatments prior to arrival: none Related Data Home Medications Medication Instructions Recorded Confirmed multivitamin 1 tab PO DAILY 03/19/22 09/11/22 labetalol 300 mg tablet 300 mg PO BID 08/02/22 09/11/22 omeprazole 20 mg capsule,delayed 20 mg PO DAILY 09/04/22 09/11/22 release quetiapine 100 mg tablet 200 mg PO BEDTIME PRN anxiety 09/04/22 09/11/22 hydroxyzine pamoate 50 mg capsule 50 - 100 mg PO BEDTIME PRN insomnia 09/11/22 09/11/22 metformin 500 mg tablet 500 mg PO BID 09/11/22 09/11/22 primidone 50 mg tablet 100 mg PO BID 09/11/22 09/11/22 rosuvastatin 20 mg tablet 20 mg PO BEDTIME 09/11/22 09/11/22 Previous Rx's Medication Instructions Recorded paroxetine HCl 40 mg tablet 40 mg PO DAILY #30 tabs 07/22/22 folic acid 1 mg tablet 1 mg PO DAILY 30 days #30 tabs 09/08/22 Allergies Allergy/AdvReac Type Severity Reaction Status Date / Time No Known Allergies Allergy Verified 09/11/22 14:01 [No Known Allergies*] Review of Systems Review of Systems: Constitutional: No Weight loss, No Fever, No Chills, No Night Sweats, No Fatigue, No Malaise ENT/Mouth: No Hearing loss, No Ear Pain, No Nasal Congestion, No Sinus Pain, No Hoarseness, No sore throat, No Rhinorrhea, No Swallowing Difficulty Eyes: No Eye Pain, No Swelling, No Redness, No Foreign Body, No Discharge, No Vision Changes Cardiovascular: No Chest Pain, No SOB, No Dyspnea on Exertion, No Orthopnea, No Edema, No Palpitations Respiratory: No Cough, No Sputum, No Wheezing, No Smoke Exposure, No Dyspnea Gastrointestinal: No Nausea, No Vomiting, No Diarrhea, No Constipation, No Abdominal pain, No Hematochezia, No Melena Genitourinary: No irregular bleeding, No Dysuria, No Urinary Frequency, No Hematuria, No Urinary Incontinence/retention, No Urgency, No Flank Pain, No Urinary Flow Changes, No Hesitancy Musculoskeletal: No joint pain, No Myalgias, No Joint Swelling Skin: No Skin Lesions, No rash Neuro: No Weakness, No Numbness, No Paresthesias, No Loss of Consciousness, No Dizziness, No Headache Psych: No Anxiety/Panic, No Depression, No SI/HI/AH/VH, No Social Issues, Heme/Lymph: No Bruising, No Bleeding,No Lymphadenopathy Endocrine: No Polyuria, No Polydipsia, No Temperature Intolerance Yes all other systems are reviewed and are negative Constitutional: Constitutional: Reports as per [facility] Past Medical History Medical History Acute hepatitis Alcohol abuse with withdrawal Alcohol use disorder, severe, dependence Alcohol withdrawal Alcoholic ketoacidosis Anxiety with depression Benign essential hypertension Diabetes mellitus Essential and other specified forms of tremor GERD without esophagitis History of alcoholic hepatitis HTN (hypertension) Hypersomnolence Insomnia Mixed hyperlipidemia Obesity (BMI 30-39.9) Recurrent moderate major depressive disorder with anxiety Snoring Surgical History H/O colonoscopy History of esophagogastroduodenoscopy (EGD) Family History Family History Father Advanced cirrhosis of liver Alcoholic cirrhosis Substance use disorder Mother Dementia Maternal Grandfather Substance use disorder Sister Substance use disorder Maternal Grandfather Colon cancer Prostate cancer Social History Social History Household Members: Significant Other Household Members Other:: Cousin Housing: House Do you presently have visiting nurse or other home services: No Alcohol intake: current Alcohol intake frequency: 3 or more drinks per day Patient Tobacco Use Status: Former Tobacco user Tobacco use type: Cigarette Years Smoked: quit 10 years ago e-Cigarette/Vaping Use: Never Used Second Hand Smoke Exposure: No Substance Use Type: Crack/Cocaine Advance Directives: Yes Advance Directives on File: Yes Advance Directives Date on File: 10/23/21 service: No Current occupational status: 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 Physical Exam ED Vital Signs: Vital Signs - 24 hr 09/11/22 14:01 09/11/22 15:55 09/11/22 22:13 Temperature 98.3 F 98.2 F 98.5 F Pulse Rate 102 H 107 H 120 H Respiratory Rate 18 16 20 Blood Pressure 150/95 H 131/97 H 164/104 H Pulse Oximetry 95 98 95 Oxygen Delivery Method Room Air Room Air Room Air 09/12/22 06:27 Temperature 98.0 F Pulse Rate 81 Respiratory Rate 16 Blood Pressure 128/86 Pulse Oximetry 97 Oxygen Delivery Method Room Air BMI result Body Mass Index 31.7 Const General: cooperative, comfortable and no acute distress Orientation/consciousness: patient oriented x3 Limitations: no limitations [facility] Head: Yes normal to inspection, Yes normocephalic and Yes atraumatic Ears: hearing grossly normal bilaterally General nose exam: Normal external nose present Face and sinus: Yes normal facial exam Mouth: Normal oral and palatal mucosa present, oropharynx normal and moist mucous membranes Throat: Yes posterior oropharynx normal Eyes General: appearance normal, both eyes and all related structures Eyelids: Yes eyelids normal Conjunctivae: conjunctivae normal Sclerae: sclerae normal Pupils: Equal, round and reactive pupils present EOM: EOMs intact bilaterally Neck Neck: Yes normal visual inspection, Yes full ROM and Yes no lymphadenopathy Lymphatic: no lymphadenopathy noted Chest Chest palpation & inspection: normal inspection of the chest Resp Effort & Inspection: normal respiratory effort and able to speak in complete sentences Auscultation: clear to auscultation bilaterally, no crackles, no rales, no rhonchi and no wheezes Cardio Rate: regular rate Rhythm: regular rhythm Heart sounds: S1 normal heart sound present and S2 normal heart sound present GI Inspection: Yes normal to inspection Skin Other: Healing contusion upon the bridge of his nose, no open wound General skin exam: no rashes or lesions noted Trauma: no lacerations or abrasions Wounds: no wounds Neuro General: patient oriented x3 and moves all extremities Cranial nerves: Yes Equal, round and reactive pupils present Extrem General: Yes normal to inspection Right upper extremity: normal to inspection Left upper extremity: normal to inspection Right lower extremity: normal to inspection Left lower extremity: normal to inspection Course Course Course Narrative: RME performed by Marianna Bal PA-C. Patient is a 57 year old assigned male at presenting to the emergency department with alcohol intoxication and face pain after a fall. Labs, imaging, swab ordered. Patient placed back in the waiting room pending room availability and results. Reevaluation(s) Reevaluation #1: Patient re-evaluated, patient is resting comfortably in bed. CT head, cervical spine, face CT shows no acute findings Will continue to monitor. Recovery team consult pending. Time: 17:15 Reevaluation #2: Patient given Ativan for mild alcohol withdrawal. The care team unfortunately would not evaluate the patient until the morning due to being medicated with Ativan 2 mg. He will be placed on physician ops Time: 23:58 Reevaluation #3: Patient seen by care team and plan to send him to detox, vitals and mood stable Time: 09:18 Medications Administered Generic Name Dose Route Start Last Admin Trade Name Silasq PRN Reason Stop Dose Admin Atorvastatin Calcium 80 mg 09/11/22 21:00 09/11/22 22:11 Atorvastatin Calcium 80 Mg Tablet PO 80 mg BEDTIME MAILE Administration Labetalol HCl 300 mg 09/11/22 21:00 09/11/22 22:11 Labetalol Hcl 100 Mg Tablet PO 300 mg BID MAILE Administration Lorazepam 2 mg 09/11/22 20:48 09/12/22 06:23 Lorazepam 1 Mg Tablet PO 2 mg Q4H PRN Administration Alcohol Withdrawal Omeprazole 20 mg 09/12/22 06:30 09/12/22 06:23 Omeprazole 20 Mg Capsule. PO 20 mg DAILY@0630 MAILE Administration Primidone 100 mg 09/11/22 21:00 09/11/22 22:11 Primidone 50 Mg Tablet PO 100 mg BID MAILE Administration Quetiapine Fumarate 200 mg 09/11/22 20:48 09/11/22 22:12 Quetiapine Fumarate 200 Mg Tablet PO 200 mg BEDTIME PRN Administration anxiety Discontinued Medications Generic Name Dose Route Start Last Admin Trade Name Shante PRN Reason Stop Dose Admin Chlordiazepoxide HCl 50 mg 09/11/22 22:44 09/11/22 22:51 Chlordiazepoxide Hcl 25 Mg Capsule PO 09/11/22 22:45 50 mg ONCE ONE Administration Sodium Chloride 1,000 mls @ 999 mls/hr 09/11/22 15:33 09/11/22 18:11 Ns IV 09/11/22 16:33 Infused .Q1H1M ONE Infusion Lorazepam 2 mg 09/11/22 15:33 09/11/22 15:48 Lorazepam 2 Mg/Ml Vial IVPUSH 09/11/22 15:34 2 mg ONCE ONE Administration Lorazepam 2 mg 09/11/22 19:04 09/11/22 19:34 Lorazepam 1 Mg Tablet PO 09/11/22 19:05 2 mg ONCE ONE Administration Medical Decision Making Medical Decision Making [facility] Narrative: This is a 57-year-old male, with a past medical history of alcohol abuse, hypertension, hyperlipidemia, GERD, diabetes, and? hepatitis, who presents to the emergency department today with complaints alcohol withdrawal symptoms since today.? Upon arrival, patient appears to be in alcohol withdrawal,, jittery, frequently moving body positions. Patient has been seen in the emergency department for alcohol withdrawal symptoms. Does endorse auditory, visual hallucinations. He does have suicidal ideations without a plan. Plan: CT head, face, cervical spine ordered in triage due to fall yesterday., EKG, viral swab, basic blood work, alcohol level. Differential Diagnosis Differential Diagnoses: The differential diagnosis associated with the presentation includes Alcohol abuse, polysubstance abuse, ICH, closed head injury Admission/Observation Consideration of admission/observation: Escalation of care including admission/observation considered Lab Data [facility] Lab Attestation statement: I reviewed the patient's lab results. 09/11/22 14:17 09/11/22 14:17 Labs: Lab Results 09/11/22 09/11/22 09/11/22 Range/Units 14:17 14:17 14:17 WBC 8.5 (4.8-10.8) X10*3/uL RBC 4.75 (4.60-5.80) X10*6/uL Hgb 14.3 (14.0-18.0) g/dl Hct 40.2 L (42.0-52.0) % MCV 84.6 (80.0-98.0) fL MCH 30.1 (27.0-33.0) pg MCHC 35.6 (31.0-36.0) g/dl RDW 12.7 (11.0-16.0) % Plt Count 234 D (160-400) X10*3/uL MPV 9.0 L (9.4-12.4) fL Immature Gran % (Auto) 0.4 (0.0-0.4) % Neut % (Auto) 50.5 (45-73) % Lymph % (Auto) 38.5 (20-40) % [place] % (Auto) 8.6 (2-11) % Eos % (Auto) 1.5 (0-4) % Baso % (Auto) 0.5 (0-2) % Lymph # (Auto) 3.3 (1.2-4.9) X10*3/uL [place] # (Auto) 0.7 (0.1-1.2) X10*3/uL Eos # (Auto) 0.1 (0.0-0.4) X10*3/uL Baso # (Auto) 0.0 (0.0-0.2) X10*3/uL Abs Immat Gran (auto) 0.03 (0.00-0.03) X10*3/uL Absolute Neuts (auto) 4.3 (2.0-8.3) x10*3/uL Absolute Nucleated RBC 0.000 (0.0-0.012) X10*3/uL Nucleated RBC % (auto) 0.0 (0.0-0.2) /100WBC Sodium 135 (135-145) mmol/L Potassium 3.6 (3.3-5.1) mmol/L Chloride 92 L (96-108) mmol/L Carbon Dioxide 25 (22-29) mmol/L Anion Gap 22 H (12-20) BUN 9 (9-16) mg/dL Creatinine 0.86 (0.5-1.4) mg/dL Estim Creat Clear Calc 104.7 Estimated GFR > 60 Random Glucose 135 H (60-115) mg/dL Calcium 10.4 H D (8.4-10.2) mg/dL Magnesium 1.8 (1.6-2.6) mg/dL Total Bilirubin 0.9 (0.0-1.0) mg/dL AST 40 H (5-37) U/L ALT 46 H (0-40) U/L Alkaline Phosphatase 81 (39-117) U/L Total Protein 7.6 (6.5-8.0) g/dL Albumin 4.8 (3.5-5.0) g/dL Urine Opiates Screen (Not Detect) Urine Fentanyl Screen (Not Detect) Ur Barbiturates Screen (Not Detect) Ur Phencyclidine Scrn (Not Detect) Ur Amphetamines Screen (Not Detect) U Benzodiazepines Scrn (Not Detect) Urine Cocaine Screen (Not Detect) U Marijuana (THC) Screen (Not Detect) Ethyl Alcohol 291 mg/dL COVID-19 ([facility]) Negative (Negative) COVID-19 Clin Com See Note 09/11/22 Range/Units 19:43 WBC (4.8-10.8) X10*3/uL RBC (4.60-5.80) X10*6/uL Hgb (14.0-18.0) g/dl Hct (42.0-52.0) % MCV (80.0-98.0) fL MCH (27.0-33.0) pg MCHC (31.0-36.0) g/dl RDW (11.0-16.0) % Plt Count (160-400) X10*3/uL MPV (9.4-12.4) fL Immature Gran % (Auto) (0.0-0.4) % Neut % (Auto) (45-73) % Lymph % (Auto) (20-40) % [place] % (Auto) (2-11) % Eos % (Auto) (0-4) % Baso % (Auto) (0-2) % Lymph # (Auto) (1.2-4.9) X10*3/uL [place] # (Auto) (0.1-1.2) X10*3/uL Eos # (Auto) (0.0-0.4) X10*3/uL Baso # (Auto) (0.0-0.2) X10*3/uL Abs Immat Gran (auto) (0.00-0.03) X10*3/uL Absolute Neuts (auto) (2.0-8.3) x10*3/uL Absolute Nucleated RBC (0.0-0.012) X10*3/uL Nucleated RBC % (auto) (0.0-0.2) /100WBC Sodium (135-145) mmol/L Potassium (3.3-5.1) mmol/L Chloride (96-108) mmol/L Carbon Dioxide (22-29) mmol/L Anion Gap (12-20) BUN (9-16) mg/dL Creatinine (0.5-1.4) mg/dL Estim Creat Clear Calc Estimated GFR Random Glucose (60-115) mg/dL Calcium (8.4-10.2) mg/dL Magnesium (1.6-2.6) mg/dL Total Bilirubin (0.0-1.0) mg/dL AST (5-37) U/L ALT (0-40) U/L Alkaline Phosphatase (39-117) U/L Total Protein (6.5-8.0) g/dL Albumin (3.5-5.0) g/dL Urine Opiates Screen Not Detected (Not Detect) Urine Fentanyl Screen Not Detected (Not Detect) Ur Barbiturates Screen POSITIVE H (Not Detect) Ur Phencyclidine Scrn Not Detected (Not Detect) Ur Amphetamines Screen Not Detected (Not Detect) U Benzodiazepines Scrn Not Detected (Not Detect) Urine Cocaine Screen Not Detected (Not Detect) U Marijuana (THC) Screen Not Detected (Not Detect) Ethyl Alcohol mg/dL COVID-19 ([facility]) (Negative) COVID-19 Clin Com Radiology Impression Discussion of test interpretation with radiology: I have reviewed the radiologist's reading. Radiologist Impression: EXAMINATION: CT HEAD WITHOUT CONTRAST CLINICAL INFORMATION: Fall? COMPARISON: December 11, 2021 TECHNIQUE: Contiguous axial imaging was performed from the skull base to vertex without intravenous administration of contrast. This CT examination was performed using dose optimization techniques as appropriate, variously including the following: *Automated exposure control *Adjustment of mA and/or kV according to patient size (this includes techniques or standardized protocols for targeted exams where dose is matched to indication/reason for exam; i.e. extremities or head) *Use of iterative reconstruction technique DLP: 748.49 mGy-cm FINDINGS: No intracranial hemorrhage is identified. No abnormal extra-axial fluid collection is seen. The ventricles, sulci, and cisterns appear unremarkable. Wilson-white matter interface is maintained. The calvarium is intact. Paranasal sinuses and mastoid air cells unremarkable. ? CT/CT head/brain wo IV con IMPRESSION: No acute intracranial pathology. Dictated By: Chris Tatum MD COMPARISON: None available. TECHNIQUE: CT facial bones with coronal and sagittal reconstructions? This CT examination was performed using dose optimization techniques as appropriate, variously including the following: *Automated exposure control *Adjustment of mA and/or kV according to patient size (this includes techniques or standardized protocols for targeted exams where dose is matched to indication/reason for exam; i.e. extremities or head) *Use of iterative reconstruction technique DLP: 381.54 mGy-cm FINDINGS: There is incontinuity of the right lateral pterygoid plate with no adjacent edematous change or muscle enlargement and this is likely a chronic finding. No evidence of acute or chronic fracture of the left pterygoid plate is identified. The paranasal sinuses and mastoid air cells are well aerated. Calcified nasal septum is midline in position. No nasal bone fracture or mandibular fracture is appreciated. The orbits appear unremarkable. No intraconal abnormality is seen. The ostiomeatal complexes are patent. Maxilla and maxillary spine unremarkable. CT/CT facial bones wo IV con IMPRESSION: No acute facial bone fracture appreciated. ? Discontinuity of the right lateral pterygoid plate which may be secondary to previous trauma. Dictated By: Chris Tatum MD EXAMINATION: CT CERVICAL SPINE WITHOUT CONTRAST CLINICAL INFORMATION: Fall with pain? COMPARISON: None available. TECHNIQUE: CT cervical spine with coronal and sagittal reconstructions.? This CT examination was performed using dose optimization techniques as appropriate, variously including the following: *Automated exposure control *Adjustment of mA and/or kV according to patient size (this includes techniques or standardized protocols for targeted exams where dose is matched to indication/reason for exam; i.e. extremities or head) *Use of iterative reconstruction technique DLP: 637.49 mGy-cm FINDINGS: No abnormal prevertebral soft tissue swelling is seen. Paraspinal muscle fat planes are maintained. No acute cervical spine fracture is noted. There is degenerative spurring seen about the anterior C1-C2 articulation. There is disc space narrowing at the C5-C6 level. Mild spurring is present however no significant bony encroachment upon the neural foramina is are identified. There is anterior bony bridge at the C2-C3 level. Carotid artery calcifications present. Visualized thyroid gland unremarkable. No apical lung lesion seen. CT/CT cervical spine wo IV con IMPRESSION: No acute cervical spine fracture identified. ? Mild cervical spondylosis. ? Fleischner guidelines were followed. Dictated By: Chris Tatum MD External Record Review External record reviewed: Inpatient record, Office record, Outpatient record, Prior outpatient labs, Prior outpatient radiology, Primary care record and Outside ED record Discharge Plan Discharge Clinical Impression: Alcohol abuse, Alcohol withdrawal Patient Disposition: Still a Patient Prescriptions: No Action paroxetine HCl 40 mg tablet 40 mg PO DAILY Qty: 30 0RF omeprazole 20 mg Capsule,Delayed Release(Dr/Ec) 20 mg PO DAILY quetiapine 100 mg tablet 200 mg PO BEDTIME PRN (Reason: anxiety) folic acid 1 mg Tablet 1 mg PO DAILY 30 Days Qty: 30 0RF metformin 500 mg tablet 500 mg PO BID primidone 50 mg tablet 100 mg PO BID hydroxyzine pamoate 50 mg capsule 50 - 100 mg PO BEDTIME PRN (Reason: insomnia) rosuvastatin 20 mg tablet 20 mg PO BEDTIME labetalol 300 mg tablet 300 mg PO BID multivitamin Tablet 1 tab PO DAILY
[2022-09-11 14:01] VITALS: BP 150/95; PULSE 102; RESP 18; TEMP 36.8; O2SAT 95; BMI 31.7
--- NOTE | 2022-09-11 14:01 | ECG_ITS ---
Test Reason : MEDICAL CLEARANCE/FALL Blood Pressure : / mmHG Vent. Rate : 102 BPM Atrial Rate : 102 BPM P-R Int : 166 ms QRS Dur : 094 ms QT Int : 352 ms P-R-T Axes : 006 025 011 degrees QTc Int : 458 ms Sinus tachycardia Septal infarct , age undetermined Abnormal ECG When compared with ECG of 04-SEP-2022 07:47, Borderline criteria for Inferior infarct are no longer Present Referred By: Marianna Bal Electronically Signed By:ISRA HERNANDEZ MD
[2022-09-11 14:22] LABS: MANUAL DIFF FLAG NO
[2022-09-11 14:39] LABS: Basophils Percent Auto 0.5 % (0-2); Eosinophils Absolute Auto 0.1 X10*3/uL (0.0-0.4); Eosinophils Percent Auto 1.5 % (0-4); Hematocrit 40.2 % (42.0-52.0); Hemoglobin 14.3 g/dl (14.0-18.0); Imm Gran Abs Auto 0.03 X10*3/uL (0.00-0.03); Imm Gran Pct Auto 0.4 % (0.0-0.4); Lymphocytes Absolute Auto 3.3 X10*3/uL (1.2-4.9); Lymphocytes Percent Auto 38.5 % (20-40); Mean Corpuscular HGB Conc 35.6 g/dl (31.0-36.0); Mean Corpuscular Hemoglobin 30.1 pg (27.0-33.0); Mean Corpuscular Volume 84.6 fL (80.0-98.0); Monocytes Absolute Auto 0.7 X10*3/uL (0.1-1.2); Monocytes Percent Auto 8.6 % (2-11); Neutrophils Absolute Auto 4.3 x10*3/uL (2.0-8.3); Neutrophils Percent Auto 50.5 % (45-73); Platelet Count 234 X10*3/uL (160-400); Red Blood Count 4.75 X10*6/uL (4.60-5.80); Red Cell Distribution Width 12.7 % (11.0-16.0); White Blood Count 8.5 X10*3/uL (4.8-10.8)
[2022-09-11 14:49] LABS: Alanine Aminotransferase 46 U/L (0-40); Albumin Level 4.8 g/dL (3.5-5.0); Alkaline Phosphatase 81 U/L (39-117); Aspartate Amino Transferase 40 U/L (5-37); Bilirubin Total 0.9 mg/dL (0.0-1.0); Blood Urea Nitrogen 9 mg/dL (9-16); Calcium 10.4 mg/dL (8.4-10.2); Creatinine Clr Calc Pharmacy 104.7; Estimated Glomerular Filt Rate > 60; Ethanol 291 mg/dL; Glucose Random 135 mg/dL (60-115); Magnesium 1.8 mg/dL (1.6-2.6); Total Protein 7.6 g/dL (6.5-8.0)
--- NOTE | 2022-09-11 14:50 | PC.NURSE ---
pt reports SI with a plan, admitted to girlfriend yesterday that he intended to take pills
[2022-09-11 14:56] LABS: COVID-19 Test Negative (Negative); IDNOW Serial# BCCEAD1C
[2022-09-11 15:16] LABS: Anion Gap 22 (12-20); Carbon Dioxide 25 mmol/L (22-29); Chloride 92 mmol/L (96-108); Potassium 3.6 mmol/L (3.3-5.1); Sodium 135 mmol/L (135-145)
--- NOTE | 2022-09-11 15:16 | PC.NURSE ---
pt changed over to non-ligature scrubs, in hallway, awaiting ED provider jesus
[2022-09-11] MEDS: LORazepam 2 MG/ML VIAL IVPUSH (15:48)
[2022-09-11] MEDS: 0.9 % Sodium Chloride 1,000 ML 999 ML IV (15:49)
[2022-09-11 15:55] VITALS: BP 131/97; PULSE 107; RESP 16; TEMP 36.8; O2SAT 98
--- NOTE | 2022-09-11 15:56 | MHC.EDTECH ---
THIS PCT IS ASSIGN TO PROVIDE 1: 1 WITH PATIENT ,VITALS SIGN TAKEN ,PT GIRL FRIEND AT BEDSIDE ,PT IS RESTING IN BED .
--- NOTE | 2022-09-11 16:26 | MHC.EDTECH ---
1:1 ambulation to bathroom as patient is unsteady when walking.
[2022-09-11] MEDS: LORazepam 1 MG TABLET 2 MG PO ×2 (19:34→22:12)
--- NOTE | 2022-09-11 19:41 | PC.NURSE ---
This program writer assumed care of this Pt at 1900. Pt calm and cooperative, sitting up on stretcher, requesting Ativan, provider Lorenzo'Finn aware, CIWA 7, med given as documented. Pt has scabs to to right side of cheek bone and bridge of nose, states from fall a few days ago . Pt reports SI with plan. 1:1 Sitter at bedside. Pt ambulating to BR with steady gait. Girlfriend at bedside.
[2022-09-11 20:03] LABS: Amphetamine Screen Urine Not Detected (Not Detect); Barbiturates, Urine POSITIVE (Not Detect); Benzodiazepines Screen Urine Not Detected (Not Detect); Cannabinoid Screen Urine Not Detected (Not Detect); Cocaine Screen Urine Not Detected (Not Detect); Fentanyl, urine Not Detected (Not Detect); Opiate Screen Urine Not Detected (Not Detect); Phencyclidine Screen Urine Not Detected (Not Detect)
[2022-09-11] MEDS: Atorvastatin Calcium 80 MG TABLET PO (22:11)
[2022-09-11] MEDS: Labetalol HCL 100 MG TABLET 300 MG PO (22:11)
[2022-09-11] MEDS: Primidone 50 MG TABLET 100 MG PO (22:11)
[2022-09-11] MEDS: QUEtiapine Fumarate 200 MG TABLET PO (22:12)
[2022-09-11 22:13] VITALS: BP 164/104; PULSE 120; RESP 20; TEMP 36.9; O2SAT 95
[2022-09-11] MEDS: chlordiazePOXIDE HCl 25 MG CAPSULE 50 MG PO (22:51)
--- NOTE | 2022-09-12 05:30 | PC.NURSE ---
Patient slept through the night, no distress observed/reported, currently asymptomatic of ETOH withdrawal, CIWA @ 2205 was 12, Ativan 2 mh PO administered at 2212 and librium 50 mg PO administered at 2251 with + effect, care consult ordered for SI/pending evaluation, labs completed/pending evaluation in the morning, med rec completed/patient compliant with his medication, behavior non concerning, will continue to monitor.
[2022-09-12] MEDS: LORazepam 1 MG TABLET 2 MG PO ×2 (06:23→10:23)
[2022-09-12] MEDS: Omeprazole 20 MG CAPSULE.DR PO (06:23)
--- NOTE | 2022-09-12 06:26 | PC.NURSE ---
Ativan 2 mg po administered for restlessness and tremulous, pending effect, VSS, will continue to monitor.
[2022-09-12 06:27] VITALS: BP 128/86; PULSE 81; RESP 16; TEMP 36.7; O2SAT 97
[2022-09-12 09:21] VITALS: BP 153/94; PULSE 81; RESP 17; TEMP 37.2; O2SAT 98
[2022-09-12] MEDS: metFORMIN HCl 500 MG TABLET PO (09:22)
[2022-09-12] MEDS: Primidone 50 MG TABLET 100 MG PO (09:22)
[2022-09-12] MEDS: Labetalol HCL 100 MG TABLET 300 MG PO (09:23)
[2022-09-12] MEDS: Folic Acid 1 MG TABLET PO (09:23)
[2022-09-12] MEDS: PARoxetine HCL 40 MG TABLET PO (09:23)
[2022-09-12] MEDS: Multivitamin TABLET 1 TAB PO (09:23)
--- NOTE | 2022-09-12 09:44 | MHC.CARE ---
Pt is a 57 year old male who self presented to [facility] on 09/11/22? r complaints alcohol withdrawal symptoms since today, Pts BAL was? 291 at2:17pm.? CARE Team met with Pt today 09/12/22 due to reported SI statements made while Pt was intoxicated. Pt currently denies SI/HI/AH/VH. Pt reports he does not recall making these statements. Pt has no hx of suicide attempt or gestures. Pt has a longstanding hx of alcohol use disorder and seen multiple times in [facility] under similar presentations. Pt is advocating for a detox admission at this time. Pt is not presenting in an acute crisis requiring further mental health intervention.? CARE Team reviewed case with Dr. Ruiz? Plan for recovery to be consulted to assist in detox bed search
--- NOTE | 2022-09-12 10:53 | PHA.MEDREC ---
Pharmacy Consult ? Medication Reconciliation Pharmacy has completed the medication reconciliation. Spoke to the patient to confirm meds.
--- NOTE | 2022-09-12 11:46 | MHC.RECOVRN ---
This senior medical writer met with patient, patient requesting detox. 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 Patient's girlfriend, Gabrielle at the bedside. This senior medical writer reviewed findings no male detox beds [facility], [facility], [facility], [facility], [facility], [facility]. Reviewed currently [facility] has a male detox bed open, it is a Section 35 facility, however on the weekend, have voluntary detox admits, however patient would be housed with involuntary Section 35 detox patients. Patient declined referral to [facility]. Reviewed findings with Provider Barbara. Barbara agreeable to discharging patient with Ativan vinnie. This reviewed with patients and patients girlfriend, patient to not drink while taking Ativan, take Ativan as prescribed. Gabrielle agreeable to help manage and monitor patient with at home med adherence and instruction. Reviewed detox process from community, reviewed recovery supports. Patient verbalized understanding, patient familiar with detox bedsearch process, pt reports is a member of [facility]. Patient and patients girlfriend encouraged to follow up with treatment bedsearch process from the community, both report they have detox list.
== END 2022-09-12 12:05 | disposition home or self-care (01) ==
PROVIDERS: Physician Assistant; Physician Assistant Medical; Emergency Provider Emergency Medicine; PCP Nurse Practitioner Family
DX: F10.139 Alcohol abuse with withdrawal, unspecified (principal); I10 Essential (primary) hypertension; R51.9 Headache, unspecified; M54.2 Cervicalgia; R00.0 Tachycardia, unspecified; E11.9 Type 2 diabetes mellitus without complications; Z20.822 Contact with and (suspected) exposure to COVID-19; Z20.828 Contact with and (suspected) exposure to other viral communicable diseases; Z79.899 Other long term (current) drug therapy; Z87.891 Personal history of nicotine dependence
CPT/HCPCS: 70450; 70486; 72125; 80053; 80307; 83735; 85025; 87635; 93005; 96361; 96374; 99285; J2060

== ENCOUNTER 2022-11-12 10:51 | Outpatient (REF) | payer OTHER, SELFPAY ==
[2022-11-12 13:20] LABS: MANUAL DIFF FLAG NO
[2022-11-12 13:32] LABS: Basophils Percent Auto 0.5 % (0-2); Eosinophils Absolute Auto 0.2 X10*3/uL (0.0-0.4); Eosinophils Percent Auto 2.7 % (0-4); Hematocrit 43.2 % (42.0-52.0); Hemoglobin 14.8 g/dl (14.0-18.0); Imm Gran Abs Auto 0.02 X10*3/uL (0.00-0.03); Imm Gran Pct Auto 0.3 % (0.0-0.4); Lymphocytes Absolute Auto 1.8 X10*3/uL (1.2-4.9); Lymphocytes Percent Auto 30.4 % (20-40); Mean Corpuscular HGB Conc 34.3 g/dl (31.0-36.0); Mean Corpuscular Hemoglobin 29.9 pg (27.0-33.0); Mean Corpuscular Volume 87.3 fL (80.0-98.0); Mean Platelet Volume 9.7 fL (9.4-12.4); Monocytes Absolute Auto 0.4 X10*3/uL (0.1-1.2); Monocytes Percent Auto 5.9 % (2-11); Neutrophils Absolute Auto 3.6 x10*3/uL (2.0-8.3); Neutrophils Percent Auto 60.2 % (45-73); Platelet Count 194 X10*3/uL (160-400); Red Blood Count 4.95 X10*6/uL (4.60-5.80); Red Cell Distribution Width 12.4 % (11.0-16.0); White Blood Count 5.9 X10*3/uL (4.8-10.8)
[2022-11-12 14:02] LABS: Estimated Average Glucose 151 mg/dL; Hemoglobin A1c % 6.9 %
[2022-11-12 15:05] LABS: Alanine Aminotransferase 36 U/L (0-40); Albumin Level 4.8 g/dL (3.5-5.0); Alkaline Phosphatase 59 U/L (39-117); Anion Gap 20 (12-20); Aspartate Amino Transferase 23 U/L (5-37); Bilirubin Total 0.6 mg/dL (0.0-1.0); Blood Urea Nitrogen 17 mg/dL (9-16); Calcium 9.9 mg/dL (8.4-10.2); Carbon Dioxide 24 mmol/L (22-29); Chloride 102 mmol/L (96-108); Cholesterol 231 mg/dL; Estimated Glomerular Filt Rate > 60; Glucose Fasting 197 mg/dL (60-99); HDL Cholesterol 50 mg/dL; Potassium 3.8 mmol/L (3.3-5.1); Sodium 142 mmol/L (135-145); Total Protein 7.8 g/dL (6.5-8.0); Triglycerides 691 mg/dL
[2022-11-12 15:29] LABS: TSH reflex Free T4 2.39 uIU/mL (0.32-4.0)
== END 2022-11-12 10:52 | disposition home or self-care (01) ==
LOC: HO.HMGCLDS 10:51
PROVIDERS: PCP Nurse Practitioner Family; Visit Provider Nurse Practitioner Family
DX: Z12.5 Encounter for screening for malignant neoplasm of prostate (principal); E11.9 Type 2 diabetes mellitus without complications
CPT/HCPCS: 36415; 80053; 80061; 83036; 84153; 84443; 85025

== ENCOUNTER 2022-11-13 11:25 | Outpatient (REF) | payer OTHER, SELFPAY ==
[2022-11-13 13:29] LABS: Appearance Urine Clear; Color Urine Yellow; Glucose Urine UA Negative (Negative); Leukocyte Esterase Urine Negative (Negative); Nitrite Urine Negative (Negative); Specific Gravity - Urine >= 1.030 (1.005-1.025); Urine Blood Negative (Negative); Urine Ketones Negative (Negative); Urine Protein Negative (Neg-Trace)
[2022-11-13 14:00] LABS: Creatinine Urine 199.71 mg/dL
== END 2022-11-13 11:26 | disposition home or self-care (01) ==
LOC: HO.HMGCLNP 11:25
PROVIDERS: PCP Nurse Practitioner Family; Visit Provider Nurse Practitioner Family
DX: E11.9 Type 2 diabetes mellitus without complications (principal)
CPT/HCPCS: 81003; 82043

== ENCOUNTER 2022-11-15 15:14 | Outpatient (AMB) | payer OTHER, SELFPAY ==
[2022-11-15 15:53] VITALS: BP 140/100; PULSE 78; O2SAT 95; BMI 31.3
--- NOTE | 2022-11-15 15:53 | MHC.PC.OV ---
Vital Signs 11/15/22 15:53 11/15/22 17:33 Height 5 ft 7 in Weight 200 lb BMI 31.3 BP 140/100 H 137/86 Blood Pressure Location Lt brachial Position Sitting Pulse 78 Pulse Source Pulse Oximeter Pulse Oximetry (%) 95 Oxygen Delivery Method Room Air Intake Visit Reasons: 3M Follow up after physical exam Allergies No Known Allergies [No Known Allergies*] Allergy (Verified 11/15/22 17:32) Medication List - Last Reconciled 11/15/22 by MARNIE Gaytan- hydroxyzine pamoate 50 - 100 mg PO BEDTIME PRN labetalol 300 mg PO BID metformin 500 mg PO BID multivitamin 1 tab PO DAILY naltrexone microspheres ER (Vivitrol) 380 mg IM Q4W omeprazole 20 mg PO DAILY@629 paroxetine HCl 40 mg PO DAILY primidone 100 mg PO BID quetiapine 300 mg PO BEDTIME PRN rosuvastatin 20 mg PO BEDTIME Tobacco use date assessed: 11/15/22 Dental Screening Dental Screen Date: 11/15/22 Did you have a dental visit in the last 12 months?: No Did you have a dental problem in the last 6 months where you did not have access to dental care?: No Was dental information given to patient?: Patient has dentist HPI 3M Follow up after physical exam HPI Details Alcohol abuse: Pt is currently on vivitrol injections, he has had one so far on 10/28, next is 12/02. Pt has drank alcohol since starting these injections, last drink was last Tuesday according to pt. Pt c/o tinnitus (left side) and decreased hearing. Will refer to speech and hearing. Denies fever, chills, and dizziness. [facility] Medical History Acute hepatitis Alcohol abuse with withdrawal Alcohol use disorder, severe, dependence Alcohol withdrawal Alcoholic ketoacidosis Anxiety with depression Benign essential hypertension Diabetes mellitus Essential and other specified forms of tremor GERD without esophagitis History of alcoholic hepatitis HTN (hypertension) Hypersomnolence Insomnia Mixed hyperlipidemia Obesity (BMI 30-39.9) Recurrent moderate major depressive disorder with anxiety Snoring Surgical History H/O colonoscopy History of esophagogastroduodenoscopy (EGD) Family History Father Advanced cirrhosis of liver Alcoholic cirrhosis Substance use disorder Mother Dementia Maternal Grandfather Substance use disorder Sister Substance use disorder Maternal Grandfather Colon cancer Prostate cancer Social History Household Members: Significant Other Household Members Other:: Cousin Housing: House Do you presently have visiting nurse or other home services: No Alcohol intake: current Alcohol intake frequency: 3 or more drinks per day Patient Tobacco Use Status: Former Tobacco user Tobacco use type: Cigarette Years Smoked: quit 10 years ago e-Cigarette/Vaping Use: Never Used Second Hand Smoke Exposure: No Substance Use Type: Crack/Cocaine Advance Directives Date on File: 10/23/21 service: No Current occupational status: 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 Colby Mariano, Cindy Baez, Jose Luis Gonzalez and colleagues, with an educational vinicio from [employer]. Review of Systems Const Reports as per HPI Physical exam (Primary Care) Vital Signs: Last Vital Signs Pulse 78 11/15/22 15:53 BP 140/100 H 11/15/22 15:53 Pulse Ox 95 11/15/22 15:53 Oxygen Delivery Method Room Air 11/15/22 15:53 BMI result Body Mass Index 31.3 Tobacco/Smoking Status: Tobacco use Status Tobacco use date assessed 11/15/22 11/15/22 15:58 Patient Tobacco Use Status Former Tobacco user 11/15/22 15:53 Tobacco use type Cigarette 11/15/22 15:53 e-Cigarette/Vaping Use Never Used 11/15/22 15:53 Thrive Assessment: Date of Thrive Assessment Date Thrive assessed 08/02/22 11/15/22 15:53 Const General: cooperative and anxious Nutritional Appearance: obese Orientation/consciousness: patient oriented x3 Resp Effort & Inspection: normal respiratory effort Auscultation: clear to auscultation bilaterally Cardio Rate: regular rate Rhythm: regular rhythm Heart sounds: S1 normal heart sound present and S2 normal heart sound present Neuro General: patient oriented x3 Extrem Right lower extremity: no edema Left lower extremity: no edema Psych Appearance: grossly normal Mental Status: mental status grossly normal Speech and movement: Normal speech and movement present Affect: Anxious affect present Attitude: cooperative Thought process: Normal thought process present Thought content: Normal thought content present Insight: Good insight present (Psych) Judgement: Good judgement present (Psych) Assessment and Plan Assessment & Plan (1) Decreased hearing: Code(s): H91.90 - Unspecified hearing loss, unspecified ear Plan: Referred to speech/hearing (2) Tinnitus: Code(s): H93.19 - Tinnitus, unspecified ear Plan: Referred to speech/hearing (3) Alcoholism in remission: Code(s): F10.21 - Alcohol dependence, in remission Plan The patient agreed to the use of a medical service representative for this encounter. Scribed for [facility] by Griselda Mario medical service representative, on 11/15/2022 at 16:05 EST. Orders: Referrals Speech and Hearing Referral H91.90 - Unspecified hearing loss, unspecified ear, H93.19 - Tinnitus, unspecified ear Medications: Discontinued quetiapine 200 mg (2 x 100 mg) PO BEDTIME PRN 60 tabs 0RF anxiety Coding Level of Care Code Est Pt Level 3 (14111) Diagnoses Decreased hearing H91.90 Tinnitus H93.19 Alcoholism in remission F10.21
[2022-11-15 17:33] VITALS: BP 137/86
== END 2022-11-15 16:30 | disposition home or self-care (01) ==
PROVIDERS: Visit Provider Nurse Practitioner Family
DX: H91.90 Unspecified hearing loss, unspecified ear (principal); H93.19 Tinnitus, unspecified ear; F10.21 Alcohol dependence, in remission
CPT/HCPCS: 99213

== ENCOUNTER 2022-11-25 13:55 | Outpatient (AMB) | payer OTHER, SELFPAY ==
--- NOTE | 2022-11-25 13:57 | A.OFFVIS_ITS ---
Intake Vital Signs 11/25/22 14:00 Height 5 ft 7 in Weight 199 lb 4 oz BMI 31.2 BP 124/62 Blood Pressure Location Lt brachial Position Sitting Pulse 70 Pulse Source Pulse Oximeter Pulse Oximetry (%) 97 Oxygen Delivery Method Room Air Intake Visit Reasons: 3m follow up Tremors-confirmed Intake Note: Pt presents today for fup tremors, states no improvement Allergies No Known Allergies [No Known Allergies*] Allergy (Verified 11/25/22 14:02) HPI HPI Comments History of Present Illness Details 57y/o right handed male comes for follow up.of tremorsNo improvement with primidone increase. He reports tremors all his life but has worsened in intensity and affecting his ADLs. The tremors are in his UE, LE and whole body , worse in his hands. It is more with certain positions and action. He was also a heavy alcoholic for more than 30 years, quit 2months ago. His last drink June 282022 . His father and grand father had tremors. Alcohol made his tremors better. His father was alcoholic as well. He has h/o bipolar disorder but does not remember being exposed to neuroleptics. The main activity affected are his writing, personal hygiene, drinking liquids, eating etc. He was send home from work as his employer did not feel it was safe for him to climb ladders . 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 He denies any voice or head tremors No change in speech or gait He has trouble sleeping, has snoring,frequent arousals , fatigue. [facility] Medical History Acute hepatitis Alcohol abuse with withdrawal Alcohol use disorder, severe, dependence Alcohol withdrawal Alcoholic ketoacidosis Anxiety with depression Benign essential hypertension Diabetes mellitus Essential and other specified forms of tremor GERD without esophagitis History of alcoholic hepatitis HTN (hypertension) Hypersomnolence Insomnia Mixed hyperlipidemia Obesity (BMI 30-39.9) Recurrent moderate major depressive disorder with anxiety Snoring Surgical History H/O colonoscopy History of esophagogastroduodenoscopy (EGD) Family History Father Advanced cirrhosis of liver Alcoholic cirrhosis Substance use disorder Mother Dementia Maternal Grandfather Substance use disorder Sister Substance use disorder Maternal Grandfather Colon cancer Prostate cancer Social History Household Members: Significant Other Household Members Other:: Cousin Housing: House Do you presently have visiting nurse or other home services: No Alcohol intake: current Alcohol intake frequency: 3 or more drinks per day Patient Tobacco Use Status: Former Tobacco user Tobacco use type: Cigarette Years Smoked: quit 10 years ago e-Cigarette/Vaping Use: Never Used Second Hand Smoke Exposure: No Substance Use Type: Crack/Cocaine Advance Directives Date on File: 10/23/21 service: No Current occupational status: 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 Physical Exam Vital Signs: Last Vital Signs Pulse 70 11/25/22 14:00 BP 124/62 11/25/22 14:00 Pulse Ox 97 11/25/22 14:00 Oxygen Delivery Method Room Air 11/25/22 14:00 BMI result Body Mass Index 31.2 Const General: cooperative, healthy appearing and anxious Nutritional Appearance: overweight Orientation/consciousness: patient oriented x3 Limitations: no limitations Eyes Pupils: Equal, round and reactive pupils present Neuro Other: Mallampatti grade 4 Domingo Ue and LE action and postural tremors 8-12 hz mild to moderate Handwriting- slow He was able to draw archimedes spiral with right, not with his left hand General: patient oriented x3, gait normal, tone normal and moves all extremities Cranial nerves: Yes Facial sensation intact/muscles of mastication intact, Yes Equal, round and reactive pupils present, Yes Bilaterally intact EOM present, Yes Nystagmus not present, Yes Normal facial strength present, Yes Midline tongue present, Yes Symmetric palate elevation present and Yes Ability to bilaterally elevate shoulders present Cognition (Neuro): normal cognition Gait exam (Neuro): Normal gait present Motor exam (neuro): 5/5 motor strength present throughout and Normal motor muscl e tone present throughout Coordination: [id number] test normal Psych Affect: Anxious affect present Assessment & Plan Assessment & Plan (1) Essential and other specified forms of tremor: Comment: familial tremors. Code(s): G25.0 - Essential tremor; G25.2 - Other specified forms of tremor (2) Snoring: Code(s): R06.83 - Snoring (3) Hypersomnolence: Code(s): G47.10 - Hypersomnia, unspecified Plan I suggested to increase primidone 100mg qam and 150mg qhs He is on labetelol for his HTN which can help his tremors High dose of quetiapine is likely worsening his tremors- consider tapering Home sleep test to r/o sleep apnea. REHANA TRIO - a peripheral nerve stimulator for temporary tremors control Medications: Changed From primidone 100 mg PO BID To primidone 2 tabs qam and 3 tabs qhs orally 2 times a day; 150 tabs 3RF Discontinued quetiapine 200 mg (2 x 100 mg) PO BEDTIME PRN 60 tabs 0RF anxiety Coding Level of Care Code Est Pt Level 4 (34236) Diagnoses Essential and other specified forms of tremor G25.0; G25.2 Snoring R06.83 Hypersomnolence G47.10
[2022-11-25 14:00] VITALS: BP 124/62; PULSE 70; O2SAT 97; BMI 31.2
== END 2022-11-25 14:12 | disposition home or self-care (01) ==
PROVIDERS: Visit Provider Psychiatry & Neurology Neurology
DX: G25.0 Essential tremor (principal); G25.2 Other specified forms of tremor; R06.83 Snoring; G47.10 Hypersomnia, unspecified
CPT/HCPCS: 99214

== ENCOUNTER → 2022-11-25 13:55 | Outpatient (BNVA) | payer OTHER, SELFPAY | PROVIDERS: Visit Provider Psychiatry & Neurology Neurology | DX: G25.0 Essential tremor (principal); G25.2 Other specified forms of tremor; R06.83 Snoring; G47.10 Hypersomnia, unspecified | CPT/HCPCS: 99212 ==

== ENCOUNTER → 2023-02-23 15:57 | Outpatient (REF) | payer OTHER, SELFPAY | LOC: HO.SL 15:57 | PROVIDERS: PCP Nurse Practitioner Family; Visit Provider Psychiatry & Neurology Neurology | DX: G47.33 Obstructive sleep apnea (adult) (pediatric) (principal); R06.83 Snoring; G47.10 Hypersomnia, unspecified | CPT/HCPCS: 95806 ==

== ENCOUNTER → 2023-02-23 16:07 | Outpatient (BNV) | payer OTHER, SELFPAY | PROVIDERS: PCP Nurse Practitioner Family; Visit Provider Internal Medicine | DX: G47.33 Obstructive sleep apnea (adult) (pediatric) (principal) | CPT/HCPCS: 95806 ==

== ENCOUNTER 2023-03-08 13:32 | Outpatient (AMB) | payer OTHER, SELFPAY ==
--- NOTE | 2023-03-08 13:34 | A.OFFVIS_ITS ---
Intake Vital Signs 03/08/23 13:35 Height 5 ft 7 in Weight 211 lb 4 oz BMI 33.1 BP 150/90 H Blood Pressure Location Rt brachial Position Sitting Respiration 16 Pulse 65 Pulse Source Pulse Oximeter Pulse Oximetry (%) 96 Oxygen Delivery Method Room Air Intake Visit Reasons: 3m f/u Tremors/ Will try to make it 1:30 Intake Note: Pt presents to the office for a 3 month follow up for tremors. Inspector And Unloader Required: No Allergies No Known Allergies [No Known Allergies*] Allergy (Verified 03/08/23 13:35) HPI HPI Comments History of Present Illness Details 57y/o right handed male comes for follow up.Tremors are stable but reports excessive dyatime fatigue HST was c/w moderate sleep apnea AHI 18/hr and oxygen ashley 81%. Previous history-He reports tremors all his life but has worsened in intensity and affecting his ADLs. The tremors are in his UE, LE and whole body , worse in his hands. It is more with certain positions and action. He was also a heavy alcoholic for more than 30 years, quit 2months ago. His last drink June 282022 . His father and grand father had tremors. Alcohol made his tremors better. His f ather was alcoholic as well. He has h/o bipolar disorder but does not remember being exposed to neuroleptics. The main activity affected are his writing, personal hygiene, drinking liquids, eating etc. He was send home from work as his employer did not feel it was safe for him to climb ladders . 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 He denies any voice or head tremors No change in speech or gait He has trouble sleeping, has snoring,frequent arousals , fatigue. [facility] Medical History (Updated 03/08/23 @ 13:51 by Lucita Vasquez MD) Obstructive sleep apnea Essential and other specified forms of tremor Hypersomnolence Snoring Diabetes mellitus Alcoholic ketoacidosis Anxiety with depression Alcohol use disorder, severe, dependence Recurrent moderate major depressive disorder with anxiety Insomnia Alcohol withdrawal History of alcoholic hepatitis HTN (hypertension) Acute hepatitis Alcohol abuse with withdrawal Obesity (BMI 30-39.9) GERD without esophagitis Mixed hyperlipidemia Benign essential hypertension Surgical History History of esophagogastroduodenoscopy (EGD) H/O colonoscopy Family History Father Advanced cirrhosis of liver Alcoholic cirrhosis Substance use disorder Mother Dementia Maternal Grandfather Substance use disorder Sister Substance use disorder Maternal Grandfather Colon cancer Prostate cancer Social History Household Members: Significant Other Household Members Other:: Cousin Housing: House Do you presently have visiting nurse or other home services: No Alcohol intake: current Alcohol intake frequency: 3 or more drinks per day Patient Tobacco Use Status: Former Tobacco user Tobacco use type: Cigarette Years Smoked: quit 10 years ago e-Cigarette/Vaping Use: Never Used Second Hand Smoke Exposure: No Substance Use Type: Crack/Cocaine Advance Directives Date on File: 10/23/21 service: No Current occupational status: 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 Physical Exam Vital Signs: Last Vital Signs Pulse 65 03/08/23 13:35 Resp 16 03/08/23 13:35 BP 150/90 H 03/08/23 13:35 Pulse Ox 96 03/08/23 13:35 Oxygen Delivery Method Room Air 03/08/23 13:35 BMI result Body Mass Index 33.1 Const General: cooperative, healthy appearing and anxious Nutritional Appearance: overweight Orientation/consciousness: patient oriented x3 Limitations: no limitations Eyes Pupils: Equal, round and reactive pupils present Neuro Other: Mallampatti grade 4 Domingo Ue and LE action and postural tremors 8-12 hz mild to moderate Handwriting- slow He was able to draw archimedes spiral with right, not with his left hand General: patient oriented x3, gait normal, tone normal and moves all extremities Cranial nerves: Yes Facial sensation intact/muscles of mastication intact, Yes Equal, round and reactive pupils present, Yes Bilaterally intact EOM present, Yes Nystagmus not present, Yes Normal facial strength present, Yes Midline tongue present, Yes Symmetric palate elevation present and Yes Ability to bilaterally elevate shoulders present Cognition (Neuro): normal cognition Gait exam (Neuro): Normal gait present Motor exam (neuro): 5/5 motor strength present throughout and Normal motor muscle tone present throughout Coordination: [id number] test normal Psych Affect: Anxious affect present Assessment & Plan Assessment & Plan (1) Essential and other specified forms of tremor: Comment: familial tremors. Code(s): G25.0 - Essential tremor; G25.2 - Other specified forms of tremor (2) Obstructive sleep apnea: Code(s): G47.33 - Obstructive sleep apnea (adult) (pediatric) Plan Continue primidone 100mg qam and 150mg qhs He is on labetelol for his HTN which can help his tremors Start CPAP 5-15 cm of water and follow up to ensure compliance High dose of quetiapine is likely worsening his tremors- consider tapering REHANA TRIO - a peripheral nerve stimulator for temporary tremors control Coding Level of Care Code Est Pt Level 4 (71000) Diagnoses Essential and other specified forms of tremor G25.0; G25.2 Obstructive sleep apnea G47.33
[2023-03-08 13:35] VITALS: BP 150/90; PULSE 65; RESP 16; O2SAT 96; BMI 33.1
== END 2023-03-08 13:56 | disposition home or self-care (01) ==
PROVIDERS: PCP Nurse Practitioner Family; Visit Provider Psychiatry & Neurology Neurology
DX: G25.0 Essential tremor (principal); G25.2 Other specified forms of tremor; G47.33 Obstructive sleep apnea (adult) (pediatric)
CPT/HCPCS: 99214

== ENCOUNTER → 2023-03-08 13:32 | Outpatient (BNVA) | payer OTHER, SELFPAY | PROVIDERS: PCP Nurse Practitioner Family; Visit Provider Psychiatry & Neurology Neurology | DX: G25.0 Essential tremor (principal); G25.2 Other specified forms of tremor; G47.33 Obstructive sleep apnea (adult) (pediatric) | CPT/HCPCS: 99212 ==

== ENCOUNTER 2023-04-05 13:17 | Outpatient (REF) | payer OTHER, SELFPAY | END 2023-04-05 13:18 | disposition home or self-care (01) | LOC: HO.SH 13:17 | PROVIDERS: Visit Provider Nurse Practitioner Family | DX: Z01.118 Encounter for examination of ears and hearing with other abnormal findings (principal); H90.3 Sensorineural hearing loss, bilateral; H93.13 Tinnitus, bilateral | CPT/HCPCS: 92557; 92567 ==

== ENCOUNTER 2023-05-07 10:06 | Inpatient (IN) | payer OTHER, SELFPAY ==
[2023-05-07] VITALS (8 sets, daily range): BP systolic 137–158; BP diastolic 72–104; PULSE 93–126; RESP 13–25; TEMP 36.4–36.9; O2SAT 93–100; BMI 29.9
--- NOTE | 2023-05-07 | ECG_ITS ---
Test Reason : chest pain Blood Pressure : / mmHG Vent. Rate : 097 BPM Atrial Rate : 097 BPM P-R Int : 162 ms QRS Dur : 092 ms QT Int : 386 ms P-R-T Axes : 029 -01 051 degrees QTc Int : 490 ms Normal sinus rhythm Cannot rule out Anterior infarct (cited on or before 19-AUG-2022) Abnormal ECG When compared with ECG of 11-SEP-2022 14:08, No significant change was found Referred By: Madison Hernández Electronically Signed By:Bahman Chavira
--- NOTE | 2023-05-07 10:25 | ED_ITS ---
HPI - General Adult General Chief complaint: ETOH/Substance Use Stated complaint: detox/ fall Time Seen by Provider: 05/07/23 10:17 Source: patient and other (girlfriend) Mode of arrival: ambulatory Limitations: other (poor historian/ confused/ hallucinations ) History of Present Illness HPI narrative: 57 year old male hx of alcohol abuse ( was recently sober for 5 months), cocaine abuse, htn, diabetes, bipolar d/o, SEBASTIAN, MDD, obesity, HLD presents w/ tremors, feeling unwell, chika drinking since tuesday ( burbon and wine) last drink maybe last night at some point unclear, ? coacine use per GF, nausea, hallucinations, diaphoresis all of which started this morning. Patient was recently sober from alcohol X 5 months and is trying to stop drinking. He also supposedly drank all of oil and body oil however unclear. Unclear why patient did this. No SI or HI per girlfriend. He isnt answering many of my questions and screams i feel like im going to most of the history obtained from girlfriend who at the bedside. Related Data Home Medications Medication Instructions Recorded Confirmed multivitamin 1 tab PO DAILY 03/19/22 11/15/22 omeprazole 20 mg capsule,delayed 20 mg PO DAILY@0630 09/04/22 11/15/22 release hydroxyzine pamoate 50 mg capsule 50 - 100 mg PO BEDTIME PRN insomnia 09/11/22 11/15/22 metformin 500 mg tablet 500 mg PO BID 09/11/22 11/15/22 rosuvastatin 20 mg tablet 20 mg PO BEDTIME 09/11/22 11/15/22 quetiapine 100 mg tablet 200 mg PO BEDTIME PRN anxiety 03/08/23 03/08/23 Previous Rx's Medication Instructions Recorded paroxetine HCl 40 mg tablet 40 mg PO DAILY #30 tabs 07/22/22 primidone 50 mg tablet See Rx Instructions PO BID #150 11/25/22 tabs labetalol 300 mg tablet 300 mg PO BID #180 tabs 12/15/22 Allergies Allergy/AdvReac Type Severity Reaction Status Date / Time No Known Allergies Allergy Verified 05/07/23 10:16 [No Known Allergies*] Review of Systems 2 Review of Systems: Constitutional : No Weight loss, No Fever, No Chills, No Fatigue, No Malaise ENT/Mouth : No sore throat, No Rhinorrhea Eyes: No Eye Pain, No Swelling, No Redness Cardiovascular : No Chest Pain, No SOB, No Dyspnea on Exertion, No Orthopnea, No Edema, No Palpitations Respiratory : No Cough, No Sputum, No Wheezing Gastrointestinal : No Nausea, No Vomiting, No Diarrhea, No Constipation, No abdominal Pain, No Hematochezia, No Melena Genitourinary : No Dysuria, No Urinary Frequency, No Hematuria, Musculoskeletal : No joint pain, No Myalgias, No Joint Swelling Skin : No Skin Lesions, No rash Neuro : No Weakness, No Numbness, No Dizziness, No Headache Psych : No Anxiety/Panic, No Depression All other systems reviewed and are negative Yes all other systems are reviewed and are negative [facility] Past Medical History Attestation statement: The following information was validated with the patient. Source: old records reviewed and nursing notes reviewed Medical History Obstructive sleep apnea Essential and other specified forms of tremor Hypersomnolence Snoring Diabetes mellitus Alcoholic ketoacidosis Anxiety with depression Alcohol use disorder, severe, dependence Recurrent moderate major depressive disorder with anxiety Insomnia Alcohol withdrawal History of alcoholic hepatitis HTN (hypertension) Acute hepatitis Alcohol abuse with withdrawal Obesity (BMI 30-39.9) GERD without esophagitis Mixed hyperlipidemia Benign essential hypertension Surgical History History of esophagogastroduodenoscopy (EGD) H/O colonoscopy Family History Family History Father Advanced cirrhosis of liver Alcoholic cirrhosis Substance use disorder Mother Dementia Maternal Grandfather Substance use disorder Sister Substance use disorder Maternal Grandfather Colon cancer Prostate cancer Social History Social History Household Members: Significant Other Household Members Other:: Cousin Housing: House Do you presently have visiting nurse or other home services: No Alcohol intake: current Alcohol intake frequency: 3 or more drinks per day Alcohol type: wine and hard liquor Patient Tobacco Use Status: Former Tobacco user Tobacco use type: Cigarette Years Smoked: quit 10 years ago Smoked in Last 30 Days: Yes e-Cigarette/Vaping Use: Never Used Second Hand Smoke Exposure: No Use of substances other than those prescribed or required for medical reasons: Unknown Substance Use Type: Crack/Cocaine Advance Directives: Yes Advance Directives on File: Yes Advance Directives Date on File: 10/23/21 service: No Current occupational status: 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 Physical Exam ED Vital Signs: Vital Signs - 24 hr 05/07/23 10:12 05/07/23 10:24 05/07/23 11:17 Temperature 98.3 F 97.6 F Pulse Rate 122 H 120 H 101 H Respiratory Rate 22 H 20 14 Blood Pressure 158/104 H 139/90 H 145/72 H Pulse Oximetry 98 97 93 Oxygen Delivery Method Room Air Room Air Room Air Oxygen Flow Rate 05/07/23 13:01 Temperature Pulse Rate 103 H Respiratory Rate 25 H Blood Pressure 137/85 Pulse Oximetry 100 Oxygen Delivery Method Oxymask Oxygen Flow Rate 4 BMI result Body Mass Index 29.9 vss Appearance: Alert.? Oriented X3.? Appears unwell diaphoretic, screaming, aggitated help me im going to im so sick , restless Head: Normocephalic, atraumatic, no step-offs or deformities + tongue fasiculations. Eyes: Pupils equal, round and reactive to light.? CVS: Tachycardia regular fast rythem around 120-130 bpm.? Pulses normal.? Respiratory: No respiratory distress.? Breath sounds normal.? Abdomen: Soft and nontender.? Skin: Skin warm and dry.? Normal skin color.? Normal skin turgor.? Extremities: No lower extremity edema.? No calf ttp. 5/5 strength to bilateral upper and lower extremities + resting UE flapping tremor b/l. + LE tremors b/l. Neuro: Oriented X 3.? No motor deficit.? No sensory deficit. CN 2-12 intact Course Reevaluation(s) Reevaluation #1: CBC unremarkable. Chemistry with elevated anion gap likely secondary to ethanol has well as elevated BUN and creatinine, will give fluids at this time. Point of care 175. Patient's beta hydroxybutyrate elevated 2.1 0 consistent with alcoholic ketoacidosis. Patient's salicylates, acetaminophen negative. Ethanol 259. Patient doing well after medications. Mentating better. Plan is hospital admission Time: 13:49 Reevaluation #2: Hospitalist request lactic. Lactic ordered Plan- admission. Time: 13:56 Medications Administered Discontinued Medications Generic Name Dose Route Start Last Admin Trade Name Shante PRN Reason Stop Dose Admin Sodium Chloride 1,000 mls @ 999 mls/hr 05/07/23 11:00 05/07/23 12:58 Ns IV 05/07/23 12:00 Infused .Q1H1M MAILE Infusion Sodium Chloride 1,000 mls @ 999 mls/hr 05/07/23 11:00 05/07/23 12:58 Ns IV 05/07/23 12:00 Infused .Q1H1M MAILE Infusion Thiamine HCl 200 mg/ Sodium 102 mls @ 204 mls/hr 05/07/23 10:54 05/07/23 12:58 Chloride IV 05/07/23 11:23 Infused ONCE ONE Infusion Lorazepam 2 mg 05/07/23 10:20 05/07/23 10:37 Lorazepam 1 Mg Tablet PO 05/07/23 10:21 2 mg ONCE ONE Administration Midazolam HCl 1 mg 05/07/23 10:43 05/07/23 10:54 Midazolam Hcl/Pf 2 Mg/2 Ml Vial IVPUSH 05/07/23 10:44 1 mg ONCE ONE Administration Ondansetron HCl 4 mg 05/07/23 10:58 05/07/23 11:09 Ondansetron Hcl 4 Mg/2 Ml Vial IVPUSH 05/07/23 10:59 4 mg ONCE ONE Administration Phenobarbital Sodium 397 mg 05/07/23 11:00 05/07/23 10:55 Phenobarbital Sodium 130 Mg/Ml Im Once IM 05/07/23 11:01 397 mg ONCE ONE Administration Protocol Medical Decision Making Medical Decision Making [facility] Narrative: 1031 57 yo , presents w/ alcohol w/ drawl last drink last night has been on a binge since tuesday. ? Cocaine use pe w/ diaphoresis, tachycardia, UE tremors and tongue fasciculation History and physical exam concerning for alcohol withdrawa w/ DTs most likely l versus alcohol intoxication versus cyclic vomiting. Will rule out metabolic derangements. Unlikely acute abdomen. Also concerned for toxic ingestion as well as hepatic encephalopathy ? [place]ernick[place]. My CIWA 30 --> ativan po to increase seziure threshold, versed and phenobarbital ordered. Plan- labs, urine, momin, ethanol, ativan, versed, phenobarb, seizure percautions, cardiac monitoring, thiamine, folate. Differential Diagnosis Differential Diagnoses: The differential diagnosis associated with the presentation includes History and physical exam concerning for alcohol withdrawa w/ DTs most likely l versus alcohol intoxication versus cyclic vomiting. Will rule out metabolic derangements. Unlikely acute abdomen. Also concerned for toxic ingestion as well as hepatic encephalopathy? Wernickes. Admission/Observation Consideration of admission/observation: Escalation of care including admission/observation considered Lab Data MDM Lab Attestation statement: I reviewed the patient's lab results. 05/07/23 10:46 05/07/23 10:46 Labs: Lab Results 05/07/23 05/07/23 05/07/23 Range/Units 10:46 10:55 11:17 WBC 10.6 (4.8-10.8) X10*3/uL RBC 5.35 (4.60-5.80) X10*6/uL Hgb 16.4 (14.0-18.0) g/dl Hct 44.2 (42.0-52.0) % MCV 82.6 (80.0-98.0) fL MCH 30.7 (27.0-33.0) pg MCHC 37.1 H (31.0-36.0) g/dl RDW 12.0 (11.0-16.0) % Plt Count 292 D (160-400) X10*3/uL MPV 8.9 L (9.4-12.4) fL Immature Gran % (Auto) 0.4 (0.0-0.4) % Neut % (Auto) 65.2 (45-73) % Lymph % (Auto) 26.2 (20-40) % Gila % (Auto) 7.8 (2-11) % Eos % (Auto) 0.1 (0-4) % Baso % (Auto) 0.3 (0-2) % Lymph # (Auto) 2.8 (1.2-4.9) X10*3/uL Gila # (Auto) 0.8 (0.1-1.2) X10*3/uL Eos # (Auto) 0.0 (0.0-0.4) X10*3/uL Baso # (Auto) 0.0 (0.0-0.2) X10*3/uL Abs Immat Gran (auto) 0.04 H (0.00-0.03) X10*3/uL Absolute Neuts (auto) 6.9 (2.0-8.3) x10*3/uL Absolute Nucleated RBC 0.000 (0.0-0.012) X10*3/uL Nucleated RBC % (auto) 0.0 (0.0-0.2) /100WBC Hold Purple Top SEE NOTE Sodium 137 (135-145) mmol/L Potassium 3.7 (3.3-5.1) mmol/L Chloride 86 L (96-108) mmol/L Carbon Dioxide 21 L (22-29) mmol/L Anion Gap 34 H (12-20) BUN 25 H (9-16) mg/dL Creatinine 1.16 (0.5-1.4) mg/dL Estim Creat Clear Calc 75.6 Estimated GFR > 60 POC Glucose 175 H (60-115) mg/dL Random Glucose 188 H (60-115) mg/dL Calcium 10.1 (8.4-10.2) mg/dL Magnesium 2.1 (1.6-2.6) mg/dL Total Bilirubin 0.7 (0.0-1.0) mg/dL AST 59 H (5-37) U/L ALT 37 (0-40) U/L Alkaline Phosphatase 74 (39-117) U/L Total Protein 8.9 H (6.5-8.0) g/dL Albumin 5.1 H (3.5-5.0) g/dL Beta-Hydroxybutyrate 2.10 H (0.02-0.27) mmol/L Salicylates < 5.0 L (15-30) mg/dL Acetaminophen < 3 (<30) mcg/mL Ethyl Alcohol 259 mg/dL Independent Interpretation I performed an independent interpretation of an: EKG Chronic Conditions Patient?s care impacted by: Diabetes, Hypertension and Other (alcoholism) Critical Care Time Critical Care Time Critical Care Time: Yes Total Critical Care Time: 60 Attestation: I attest to this time spent taking care of the patient, obtaining history, physical, reviewing labs, imaging, speaking to my attending, speaking to specialist. Discharge Plan Discharge Clinical Impression: Delirium tremens, Nausea, Alcoholic ketoacidosis, Alcohol use disorder, severe, dependence Patient Disposition: Admitted As Inpatient
[2023-05-07] MEDS: LORazepam 1 MG TABLET 2 MG PO (10:37)
[2023-05-07 10:54] LABS: MANUAL DIFF FLAG NO
[2023-05-07] MEDS: Midazolam HCl/PF 2 MG/2 ML VIAL 1 MG IVPUSH (10:54)
[2023-05-07] MEDS: 0.9 % Sodium Chloride 1,000 ML 999 ML IV ×2 (10:55→11:00)
[2023-05-07] MEDS: PHENobarbitaL sodium 130 MG/ML IM ONCE 397 MG IM (10:55)
[2023-05-07 10:57] LABS: Basophils Percent Auto 0.3 % (0-2); Eosinophils Percent Auto 0.1 % (0-4); Hematocrit 44.2 % (42.0-52.0); Hemoglobin 16.4 g/dl (14.0-18.0); Imm Gran Abs Auto 0.04 X10*3/uL (0.00-0.03); Imm Gran Pct Auto 0.4 % (0.0-0.4); Lymphocytes Absolute Auto 2.8 X10*3/uL (1.2-4.9); Lymphocytes Percent Auto 26.2 % (20-40); Mean Corpuscular HGB Conc 37.1 g/dl (31.0-36.0); Mean Corpuscular Hemoglobin 30.7 pg (27.0-33.0); Mean Corpuscular Volume 82.6 fL (80.0-98.0); Mean Platelet Volume 8.9 fL (9.4-12.4); Monocytes Absolute Auto 0.8 X10*3/uL (0.1-1.2); Monocytes Percent Auto 7.8 % (2-11); Neutrophils Absolute Auto 6.9 x10*3/uL (2.0-8.3); Neutrophils Percent Auto 65.2 % (45-73); Platelet Count 292 X10*3/uL (160-400); Red Blood Count 5.35 X10*6/uL (4.60-5.80); White Blood Count 10.6 X10*3/uL (4.8-10.8)
[2023-05-07 10:59] LABS: Glucose, Whole Blood 175 mg/dL (60-115)
[2023-05-07] MEDS: ondansetron HCL 4 MG/2 ML VIAL IVPUSH ×2 (11:09→23:51)
[2023-05-07] MEDS: Thiamine HCL 200 MG in 0.9 % Sodium Chloride 100 ML 204 MG IV (11:09)
--- NOTE | 2023-05-07 11:15 | PC.NURSE ---
PT arrived ambulatory with GF at bedside. Pt has been binge drinking hard liquor and wine since Tuesday. PT has history of ETOH withdraw/seizures. Seizure precautions in place. Pt unable to answer most questions i'm sick is all he is able to repeat. IV placed, medications given per JUN. PT placed on Oxy mask d/t desat, provider aware.
[2023-05-07 11:22] LABS: Alanine Aminotransferase 37 U/L (0-40); Albumin Level 5.1 g/dL (3.5-5.0); Alkaline Phosphatase 74 U/L (39-117); Anion Gap 34 (12-20); Aspartate Amino Transferase 59 U/L (5-37); Bilirubin Total 0.7 mg/dL (0.0-1.0); Blood Urea Nitrogen 25 mg/dL (9-16); Calcium 10.1 mg/dL (8.4-10.2); Carbon Dioxide 21 mmol/L (22-29); Chloride 86 mmol/L (96-108); Creatinine Clr Calc Pharmacy 75.6; Estimated Glomerular Filt Rate > 60; Glucose Random 188 mg/dL (60-115); Magnesium 2.1 mg/dL (1.6-2.6); Potassium 3.7 mmol/L (3.3-5.1); Sodium 137 mmol/L (135-145); Total Protein 8.9 g/dL (6.5-8.0)
[2023-05-07 11:40] LABS: Ethanol 259 mg/dL
[2023-05-07 11:44] LABS: Acetaminophen LAB < 3 mcg/mL (<30); Salicylate < 5.0 mg/dL (15-30)
--- NOTE | 2023-05-07 14:06 | P.HPHOSP_ITS ---
<Statement entered by Erendira Vivas MD - 05/07/23 18:39> the patient was seen and evaluated with CHI Oropeza. I agree with his note, assessment and plan with the following. In summary, A 57 years old male with PMH of alcohol abuse, DM2, SEBASTIAN on CPAP, HTN among others presents to the hospital with nausea and vomiting seeking detox. he reports being clean for 6 months but came back to binge drinking last few weeks. # Alcohol abuse and withdrawal complicated with Alcoholic ketoacidosis IVF Continue Phenobarb protocol Daily multivitamin, folic acid 1mg IV, Thiamine 100 mg IV q.8 IV Protonix CIWA scale and Seizure protocols reorientation Extra Phenobarb IM if needed Rest of evaluations by PA note. History of Present Illness Date of Service: 05/07/23 <[facility]I Oropeza - Last Filed: 05/07/23 15:58> Attending physician on admission: Erendira Vivas <CHI Oropeza - Last Filed: 05/07/23 15:58> Chief Complaint: Alcohol withdrawal <CHI Oropeza - Last Filed: 05/07/23 15:58> Pt is a 57-year-old male with a PMH significant for?alcohol use disorder with hx of withdrawal, HTN, HLD, GERD, noninsulin dependent type 2 diabetes, hx of hepatitis, Valles's esophagus, SEBASTIAN on CPAP, benign essential tremor, and cocaine use disorder who presents to the ED with?intractable nausea and seeking detox. Patient apparently was previously sober for 5-6 months, but has been drinking ?as much as possible? the past week, primarily wine and bourbon. Girlfriend is at bedside who supplement HPI. Last drink some time between 23:30 last night and 07:00 this morning. Patient states that he has been having daily nausea episodes of vomiting, though was unable to clarify exactly how much. Denies any hematemesis. Patient also endorses vague auditory and visual hallucinations, but patient is again unable to clarify exactly what he is hearing and seeing or for how long. Girlfriend also notes patient has been more restless and agitated than normal, constantly pacing around the room. Pt has a hx of cocaine use but she is unsure if he has been using recently. Has had diaphoresis and increased anxiety. Patient presented this morning due to severe nausea. Denies fever, chills. No chest pain/pressure, palpitations. No SOB. In the ED pt was afebrile but tachycardic up to 122, tachypneic up to 25, and hypertensive up to 158/104. Labs were significant for chloride 86, anion gap 34, creatinine 1.1, AST 59, beta hydroxybutyrate 2.10, and and ethyl alcohol levels of 259. Pt was treated with lorazepam, midazolam, IVF, thiamine, ondansetron, IVF, and started on phenobarb protocol. Pt will be admitted to the hospital for treatment and further evaluation of acute alcohol withdrawal. <CHI Oropeza - Last Filed: 05/07/23 15:58> Review of Systems 2 Review of Systems: Nausea, vomiting Visual and auditory hallucinations Increased anxiety, restlessness Diaphoresis <CHI Oropeza - Last Filed: 05/07/23 15:58> [facility] Medical History: Medical History Obstructive sleep apnea Essential and other specified forms of tremor Hypersomnolence Snoring Diabetes mellitus Alcoholic ketoacidosis Anxiety with depression Alcohol use disorder, severe, dependence Recurrent moderate major depressive disorder with anxiety Insomnia Alcohol withdrawal History of alcoholic hepatitis HTN (hypertension) Acute hepatitis Alcohol abuse with withdrawal Obesity (BMI 30-39.9) GERD without esophagitis Mixed hyperlipidemia Benign essential hypertension <CHI Oropeza - Last Filed: 05/07/23 15:58> Family History: Family History Father Advanced cirrhosis of liver Alcoholic cirrhosis Substance use disorder Mother Dementia Maternal Grandfather Substance use disorder Sister Substance use disorder Maternal Grandfather Colon cancer Prostate cancer <CHI Oropeza - Last Filed: 05/07/23 15:58> Surgical History: Surgical History History of esophagogastroduodenoscopy (EGD) H/O colonoscopy <CHI Oropeza - Last Filed: 05/07/23 15:58> Social History: Social History Household Members: Significant Other Household Members Other:: Cousin Housing: House Do you presently have visiting nurse or other home services: No Alcohol intake: current Alcohol intake frequency: 3 or more drinks per day Alcohol type: wine and hard liquor Patient Tobacco Use Status: Former Tobacco user Tobacco use type: Cigarette Years Smoked: quit 10 years ago Smoked in Last 30 Days: Yes e-Cigarette/Vaping Use: Never Used Second Hand Smoke Exposure: No Use of substances other than those prescribed or required for medical reasons: No Substance Use Type: Crack/Cocaine Have you been hit, kicked, punched, or otherwise hurt by someone within the past year? 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 <CHI Oropeza - Last Filed: 05/07/23 15:58> Meds Allergies/Adverse reactions: Allergies Allergy/AdvReac Type Severity Reaction Status Date / Time No Known Allergies Allergy Verified 05/07/23 10:16 [No Known Allergies*] <CHI Oropeza - Last Filed: 05/07/23 15:58> Active Medications: Current Medications Folic Acid 1 mg/ Sodium (Chloride) 50.2 mls @ 100.4 mls/hr IV DAILY [facility] Dextrose/Sodium Chloride (D5ns) 1,000 mls @ 50 mls/hr IVCONT .Q20H [facility] Pharmacy Consult (Consult Rx Etoh Phenob Im/Po) 1 each MISCELLANE ONCE PRN; Protocol PRN Reason: Consult order Phenobarbital (Phenobarbital 15 Mg Tablet) 45 mg PO BID [facility]; Protocol Stop: 05/09/23 21:01 Phenobarbital (Phenobarbital 30 Mg Tablet) 30 mg PO BID [facility]; Protocol Stop: 05/11/23 21:01 Phenobarbital (Phenobarbital 15 Mg Tablet) 15 mg PO DAILY [facility]; Protocol Stop: 05/13/23 09:01 Phenobarbital Sodium (Phenobarbital Sodium 130 Mg/Ml Vial Im Q3hx2) 298 mg IM Q3H MAILE; Protocol Stop: 05/07/23 17:01 <CHI Oropeza - Last Filed: 05/07/23 15:58> Home medications: Home Medications Medication Instructions Recorded Confirmed Last Taken Type metformin 500 mg tablet 500 mg PO BID 09/11/22 05/07/23 05/02/23 History rosuvastatin 20 mg tablet 20 mg PO BEDTIME 09/11/22 05/07/23 05/02/23 History quetiapine 100 mg tablet 100 mg PO BEDTIME PRN anxiety 03/08/23 05/07/23 05/02/23 History pantoprazole 40 mg tablet,delayed 40 mg PO DAILY@0630 05/07/23 05/07/23 05/02/23 History release primidone 50 mg tablet 100 mg PO BID 05/07/23 05/07/23 05/02/23 History <CHI Oropeza - Last Filed: 05/07/23 15:58> Physical Exam 2 Vital Signs and Narrative: Vital Signs: Last Vital Signs Temp 97.6 F 05/07/23 11:17 Pulse 103 H 05/07/23 13:01 Resp 25 H 05/07/23 13:01 BP 137/85 05/07/23 13:01 Pulse Ox 100 05/07/23 13:01 O2 Del Method Oxymask 05/07/23 13:01 O2 Flow Rate 4 05/07/23 13:01 BMI result Body Mass Index 29.9 <CHI Oropeza - Last Filed: 05/07/23 15:58> Constitutional: Somnolent but arousable, agitated and restless while awake. Diaphoretic. In no acute distress. Mental Status: Oriented to person, place and time. Eyes: Pupils are equal, round, and reactive to light. Ear, Nose, and Throat: Oropharynx clear, mucous membranes moist. Ears and nose without deformities. Trachea midline. Respiratory: Clear to auscultation bilaterally. No wheezing, rales, or rhonchi. Cardiovascular: S1, S2, tachy. No murmurs, rubs, or gallops. Gastrointestinal: Abdomen soft, non-tender, non-distended. Normal bowel sounds. Neurologic: Cranial nerves II-XII are grossly intact bilaterally. No focal neurological deficits. Moves all extremities spontaneously. Moderate upper extremity tremors noted. Skin: Warm, dry. Musculoskeletal: No cyanosis or clubbing. Extremities: No edema. Psychiatric: Normal mood and affect. <CHI Oropeza - Last Filed: 05/07/23 15:58> Results Labs CBC and Chem 7: 05/07/23 10:46 05/07/23 10:46 <CHI Oropeza - Last Filed: 05/07/23 15:58> Labs: Laboratory Results - last 24 hr 05/07/23 05/07/23 05/07/23 10:46 10:55 11:17 MCV 82.6 MCH 30.7 MCHC 37.1 H RDW 12.0 Plt Count 292 D MPV 8.9 L Immature Gran % (Auto) 0.4 Neut % (Auto) 65.2 Lymph % (Auto) 26.2 Jay % (Auto) 7.8 Eos % (Auto) 0.1 Baso % (Auto) 0.3 Lymph # (Auto) 2.8 Jay # (Auto) 0.8 Eos # (Auto) 0.0 Baso # (Auto) 0.0 Abs Immat Gran (auto) 0.04 H Absolute Neuts (auto) 6.9 Absolute Nucleated RBC 0.000 Nucleated RBC % (auto) 0.0 Hold Purple Top SEE NOTE Anion Gap 34 H Estim Creat Clear Calc 75.6 Estimated GFR > 60 POC Glucose 175 H Random Glucose 188 H Calcium 10.1 Magnesium 2.1 Total Bilirubin 0.7 AST 59 H ALT 37 Alkaline Phosphatase 74 Total Protein 8.9 H Albumin 5.1 H Beta-Hydroxybutyrate 2.10 H Salicylates < 5.0 L Acetaminophen < 3 Ethyl Alcohol 259 <CHI Oropeza - Last Filed: 05/07/23 15:58> Assessment and Plan (1) Alcohol withdrawal: Status: Acute <CHI Oropeza - Last Filed: 05/07/23 15:58> (2) Obstructive sleep apnea: Status: Acute <CHI Oropeza - Last Filed: 05/07/23 15:58> (3) Alcoholic ketoacidosis: Status: Acute <CHI Oropeza - Last Filed: 05/07/23 15:58> (4) Alcohol use disorder, severe, dependence: Status: Acute <CHI Oropeza - Last Filed: 05/07/23 15:58> (5) Lactic acidosis: Status: Acute <CHI Oropeza - Last Filed: 05/07/23 15:58> Pt is a 57-year-old male with a PMH significant for?alcohol use disorder with hx of withdrawal, HTN, HLD, GERD, noninsulin dependent type 2 diabetes, hx of hepatitis, Valles's esophagus, SEBASTIAN on CPAP, benign essential tremor, and cocaine use disorder who presents to the ED with?intractable nausea and seeking detox. Pt will be admitted to the hospital for treatment and further evaluation of acute alcohol withdrawal. Acute alcohol withdrawal Moderate upper extremity tremors, visual and auditory hallucinations Patient started on phenobarb protocol in ED Continue Phenobarb protocol Daily multivitamin, folic acid 1mg IV, Thiamine 100 mg IV q.8 Protonix Follow lytes, Mag, BMP IVF: D5 NS Clear liquid diet, advance as tolerated CIWA scale Seizure protocols Addiction medicine consult Monitor on telemetry Elevated lactic acid Likely secondary to N/V, metformin use not sepsis No evidence of bacterial infection Tachycardia and tachypnea secondary to alcohol withdrawal, sepsis HTN Continue labetalol Benign essential tremor Continue primidone HLD Continue statin Mood disorder Continue paroxetine, quetiapine Full Code Attending:?Dr. Vivas DVT Prophylaxis: Lovenox Pt will require a hospitalization of at least two nights for treatment of?acute. Given patient's past withdrawal history and current symptoms that include auditory and visual hallucinations, patient will require hospitalized care to administer phenobarb protocol and provide close monitoring of labs, vitals, and cardiac functioning. <CHI Oropeza - Last Filed: 05/07/23 15:58> Pt is a 57-year-old male with a PMH significant for?alcohol use disorder with hx of withdrawal, HTN, HLD, GERD, noninsulin dependent type 2 diabetes, hx of hepatitis, Valles's esophagus, SEBASTIAN on CPAP, benign essential tremor, and cocaine use disorder who presents to the ED with?intractable nausea and seeking detox. Pt will be admitted to the hospital for treatment and further evaluation of acute alcohol withdrawal. Acute alcohol withdrawal with Alcoholic Ketoacidosis Moderate upper extremity tremors, visual and auditory hallucinations Patient started on phenobarb protocol in ED Continue Phenobarb protocol Daily multivitamin, folic acid 1mg IV, Thiamine 100 mg IV q.8 Protonix Follow lytes, Mag, BMP IVF: D5 NS Clear liquid diet, advance as tolerated CIWA scale Seizure protocols Addiction medicine consult Monitor on telemetry Elevated lactic acid Likely secondary to N/V, metformin use not sepsis No evidence of bacterial infection Tachycardia and tachypnea secondary to alcohol withdrawal, not sepsis HTN Continue labetalol Benign essential tremor Continue primidone HLD Continue statin Mood disorder Continue paroxetine, quetiapine Full Code Attending:?Dr. Vivas DVT Prophylaxis: Lovenox Pt will require a hospitalization of at least two nights for treatment of?acute. Given patient's past withdrawal history and current symptoms that include auditory and visual hallucinations, patient will require hospitalized care to administer phenobarb protocol and provide close monitoring of labs, vitals, and cardiac functioning. <Erendira Vivas MD - Last Filed: 05/07/23 18:40> Quality Stroke Does the patient have a stroke diagnosis?: No <CHI Oropeza - Last Filed: 05/07/23 15:58> VTE Prior VTE?: No <CHI Oropeza - Last Filed: 05/07/23 15:58> VTE Risk Level:: Medical - moderate - high <CHI Oropeza - Last Filed: 05/07/23 15:58> VTE Device Contraindication: Treatment Not Indicated <CHI Oropeza - Last Filed: 05/07/23 15:58> VTE Drug Contraindication: N/A - Med Ordered <CHI Oropeza - Last Filed: 05/07/23 15:58>
[2023-05-07] MEDS: Prochlorperazine Edisylate 10 MG/2 ML VIAL IVPUSH (14:14)
[2023-05-07] MEDS: PHENobarbitaL sodium 130 MG/ML VIAL IM Q3Hx2 298 MG IM ×2 (14:14→16:30)
[2023-05-07] MEDS: Dextrose 5 % and 0.9 % NaCl 1,000 ML 50 ML IVCONT (14:15)
--- NOTE | 2023-05-07 14:38 | PHA.MEDREC ---
Pharmacy Consult ? Medication Reconciliation Pharmacy has completed the medication reconciliation. Spoke to pt to confirm meds. Patient somewhat poor historian, could name a few meds. Patient's GF does not know meds. Called pharmacy to confirm as well. Per pt, still taking Protonix, Crestor, Metformin despite being a couple months since last fill. Pt not taking hydroxyzine or vivitrol anymore (Vivitrol per pt gave them severe back pain ).
[2023-05-07 14:48] LABS: Lactic Acid 3.6 mmol/L (0.5-2.0)
[2023-05-07 16:10] LABS: Appearance Urine Clear; Color Urine Yellow; Glucose Urine UA Negative (Negative); Leukocyte Esterase Urine Negative (Negative); Nitrite Urine Negative (Negative); PH 5.5 (5.0-9.0); Specific Gravity - Urine >= 1.030 (1.005-1.025); UMIC TRIGGER UACC YES; Urine Blood Moderate (2+) (Negative); Urine Ketones 80 mg/dL (Negative); Urine Protein >=1000 (4+) mg/dL (Neg-Trace)
[2023-05-07 16:13] LABS: Amphetamine Screen Urine Not Detected (Not Detect); Barbiturates, Urine POSITIVE (Not Detect); Benzodiazepines Screen Urine POSITIVE (Not Detect); Cannabinoid Screen Urine Not Detected (Not Detect); Cocaine Screen Urine Not Detected (Not Detect); Fentanyl, urine Not Detected (Not Detect); Opiate Screen Urine Not Detected (Not Detect); Phencyclidine Screen Urine Not Detected (Not Detect)
[2023-05-07 16:23] LABS: Reflex Lactate? Lactic Acid Added
[2023-05-07] MEDS: Enoxaparin Sodium 40 MG/0.4 ML SYRINGE SUBCUT (16:29)
[2023-05-07] MEDS: Pantoprazole Sodium 40 MG/10 ML VIAL IVPUSH (16:29)
[2023-05-07 16:30] LABS: Glucose, Whole Blood 192 mg/dL (60-115)
[2023-05-07 16:47] LABS: COVID-19 Test Negative (Negative); IDNOW Serial# 152EDE1D
[2023-05-07 16:47] LABS: Bacteria Urine None Seen (None Seen); WBC Urine 0-5 /HPF (0-5)
[2023-05-07 16:57] LABS: ~Lactic Acid-LAB USE ONLY 3.2 mmol/L (0.5-2.0)
--- NOTE | 2023-05-07 16:58 | PC.NURSE ---
rec critical lactic 3.2- PA Mariza notified via [facility] [facility]
[2023-05-07 17:04] LABS: Cancel Lactic Acid Canceled
--- NOTE | 2023-05-07 18:21 | PC.NURSE ---
Addendum entered by Kenneth Brock RN 05/07/23 18:42: md informed of pt's assessment findings and HR sustaining 110-120s Original Note: pt arrived from ED able to ambualte to bed. hisotry obtained from Pt and pt's partner. pt noted to have scabs to RLE and R toe along w/ abrasions to back from prev falls.
[2023-05-07] MEDS: Insulin Lispro 100 UNIT/ML 3 ML VIAL SUBCUT ×2 (18:24→23:06)
[2023-05-07 19:48] LABS: Glucose, Whole Blood 285 mg/dL (60-115)
[2023-05-07 20:19] LABS: Glucose, Whole Blood 249 mg/dL (60-115)
[2023-05-07] MEDS: Morphine Sulfate 4 MG/ML CARTRIDGE 3 MG IVPUSH (23:00)
[2023-05-07] MEDS: Aspirin 325 MG TABLET PO (23:03)
[2023-05-07] MEDS: Thiamine HCL 100 MG in 0.9 % Sodium Chloride 100 ML 202 MG IV (23:16)
[2023-05-07] MEDS: Nitroglycerin 0.4 MG TAB.SUBL SUBLINGUAL (23:30)
[2023-05-07] MEDS: Acetaminophen 325 MG TABLET 650 MG PO (23:53)
[2023-05-08] VITALS (7 sets, daily range): BP systolic 114–168; BP diastolic 73–97; PULSE 72–95; RESP 18–20; TEMP 36.3–37; O2SAT 95–100
--- NOTE | 2023-05-08 | ECG_ITS ---
Test Reason : CP Blood Pressure : / mmHG Vent. Rate : 086 BPM Atrial Rate : 086 BPM P-R Int : 174 ms QRS Dur : 086 ms QT Int : 382 ms P-R-T Axes : 001 -17 049 degrees QTc Int : 457 ms Normal sinus rhythm Normal ECG When compared with ECG of 07-MAY-2023 22:43, No significant change was found Referred By: Erendira Vivas Electronically Signed By:ISRA HERNANDEZ MD
[2023-05-08] MEDS: Nitroglycerin 0.4 MG TAB.SUBL SUBLINGUAL (00:03)
[2023-05-08 00:04] LABS: Troponin-I High Sensitivity 50.5 ng/L (<3.5-35.0)
[2023-05-08 00:05] LABS: Troponin-I High Sensitivity 50.1 ng/L (<3.5-35.0)
[2023-05-08] MEDS: traZODone HCL 25 MG HALFTAB PO ×2 (00:53→20:57)
[2023-05-08] MEDS: PHENobarbitaL sodium 130 MG/ML VIAL IM ×2 (01:08→13:24)
[2023-05-08 02:30] LABS: Troponin-I High Sensitivity 45.4 ng/L (<3.5-35.0)
[2023-05-08] MEDS: Thiamine HCL 100 MG in 0.9 % Sodium Chloride 100 ML 202 MG IV (03:25)
[2023-05-08 05:07] LABS: Glucose, Whole Blood 157 mg/dL (60-115)
[2023-05-08] MEDS: Pantoprazole Sodium 40 MG/10 ML VIAL IVPUSH (05:44)
[2023-05-08 07:41] LABS: Glucose, Whole Blood 188 mg/dL (60-115)
[2023-05-08] MEDS: Multivitamin TABLET 1 TAB PO (08:01)
[2023-05-08] MEDS: Folic Acid 1 MG in 0.9 % Sodium Chloride 50 ML 100.4 MG IV (08:01)
[2023-05-08] MEDS: Insulin Lispro 100 UNIT/ML 3 ML VIAL SUBCUT ×4 (08:01→20:57)
[2023-05-08] MEDS: 0.9 % Sodium Chloride Flush 3 ML SYRINGE IVFLUSH ×2 (08:02→15:31)
[2023-05-08] MEDS: PHENobarbitaL 15 MG TABLET 45 MG PO ×2 (08:02→20:18)
[2023-05-08 08:41] LABS: Hematocrit 33.2 % (42.0-52.0); Hemoglobin 11.8 g/dl (14.0-18.0); Mean Corpuscular HGB Conc 35.5 g/dl (31.0-36.0); Mean Corpuscular Volume 84.5 fL (80.0-98.0); Mean Platelet Volume 8.9 fL (9.4-12.4); Platelet Count 138 X10*3/uL (160-400); Red Blood Count 3.93 X10*6/uL (4.60-5.80); Red Cell Distribution Width 11.9 % (11.0-16.0); White Blood Count 4.4 X10*3/uL (4.8-10.8)
[2023-05-08 09:16] LABS: Anion Gap 14 (12-20); Blood Urea Nitrogen 13 mg/dL (9-16); Calcium 7.8 mg/dL (8.4-10.2); Carbon Dioxide 30 mmol/L (22-29); Chloride 96 mmol/L (96-108); Creatinine Clr Calc Pharmacy 105.7; Estimated Glomerular Filt Rate > 60; Glucose Random 204 mg/dL (60-115); Magnesium 1.9 mg/dL (1.6-2.6); Potassium 3.1 mmol/L (3.3-5.1); Sodium 137 mmol/L (135-145)
[2023-05-08 11:03] LABS: Glucose, Whole Blood 211 mg/dL (60-115)
[2023-05-08 11:32] LABS: Glucose, Whole Blood 212 mg/dL (60-115)
[2023-05-08] MEDS: Dextrose 5 % and 0.9 % NaCl 1,000 ML 50 ML IVCONT (11:57)
--- NOTE | 2023-05-08 12:24 | HO.PM.IMPN ---
Subjective Subjective Date of Service: 05/08/23 Interval History: Seen and evaluated this morning Feels better overall but still scoring on CIWA and having tremors tolerating clears, no nausea or vomiting no other overnight events Review of Systems Review of Systems: Yes all other systems are reviewed and are negative Physical Exam Vital Signs: Vital Signs: Last Vital Signs Temp 98.3 F 05/08/23 11:19 Pulse 88 05/08/23 11:19 Resp 20 05/08/23 11:19 BP 148/81 H 05/08/23 11:19 Pulse Ox 95 05/08/23 11:19 O2 Del Method Room Air 05/08/23 11:19 O2 Flow Rate 4 05/08/23 07:18 BMI result Body Mass Index 29.9 Const: Other: Constitutional : Awake, interactive, not in distress Neck : Normal inspection, Supple Cardiovascular : RRR, no JVP, no lower extremity edema Respiratory : good bilateral air entry, no crackles, wheezes or rhonchi Gastrointestinal: soft, lax, Normal bowel sounds, Non tender Skin : Warm, Dry Neurological : Alert & oriented x3, No focal deficit , whole body tremors more noticed on hands Objective Data Active Medications Acetaminophen (Acetaminophen 325 Mg Tablet) 650 mg PO Q6H PRN PRN Reason: Pain, Mild (Pain Scale 1-3) Last Admin: 05/07/23 23:53 Dose: 650 mg Documented By: LONNIE Benzonatate (Benzonatate 100 Mg Capsule) 100 mg PO TID PRN PRN Reason: Cough Dextrose (Dextrose 50 % 25 Gm/50 Ml Syringe) 25 gm IVPUSH Q15M PRN; Protocol PRN Reason: per Hypoglycemia Standing Ord. Docusate Sodium (Docusate Sodium 100 Mg Capsule) 100 mg PO DAILY PRN PRN Reason: Constipation Enoxaparin Sodium (Enoxaparin Sodium 40 Mg/0.4 Ml Syringe) 40 mg SUBCUT Q24H [facility] Last Admin: 05/07/23 16:29 Dose: 40 mg Documented By: THONG Glucose (Glucose Gel 15 Gm Gel..Gram.) 15 gm PO Q15M PRN; Protocol PRN Reason: per Hypoglycemia Standing Ord. Folic Acid 1 mg/ Sodium (Chloride) 50.2 mls @ 100.4 mls/hr IV DAILY [facility] Last Infusion: 05/08/23 08:52 Dose: Infused Documented By: NEERU Dextrose/Sodium Chloride (D5ns) 1,000 mls @ 50 mls/hr IVCONT .Q20H [facility] Last Admin: 05/08/23 11:57 Dose: 50 mls/hr Documented By: JENELLERP Thiamine HCl 100 mg/ Sodium (Chloride) 101 mls @ 202 mls/hr IV Q8H [facility] Last Infusion: 05/08/23 05:01 Dose: Infused Documented By: LONNIE Insulin Human Lispro (Insulin Lispro 100 Unit/Ml 3 Ml Vial) 0 unit SUBCUT QIDACHS [facility]; Protocol Last Admin: 05/08/23 11:56 Dose: 4 unit Documented By: NEERU Multivitamins/Vitamin C (Multivitamin Tablet) 1 tab PO DAILY [facility] Stop: 05/11/23 08:59 Last Admin: 05/08/23 08:01 Dose: 1 tab Documented By: NEERU Nitroglycerin (Nitroglycerin 0.4 Mg Tab.Subl) 0.4 mg SUBLINGUAL Q5MX3 PRN PRN Reason: Chest Pain Last Admin: 05/08/23 00:03 Dose: 0.4 tab Documented By: LONNIE Ondansetron HCl (Ondansetron Hcl 4 Mg/2 Ml Vial) 4 mg IVPUSH Q8H PRN PRN Reason: Nausea and Vomiting Last Admin: 05/07/23 23:51 Dose: 4 mg Documented By: LONNIE Pantoprazole Sodium (Pantoprazole Sodium 40 Mg/10 Ml Vial) 40 mg IVPUSH DAILY@0630 [facility] Last Admin: 05/08/23 05:44 Dose: 40 mg Documented By: LONNIE Pharmacy Consult (Consult Rx Etoh Phenob Im/Po) 1 each MISCELLANE ONCE PRN; Protocol PRN Reason: Consult order Phenobarbital (Phenobarbital 15 Mg Tablet) 45 mg PO BID [facility]; Protocol Stop: 05/09/23 21:01 Last Admin: 05/08/23 08:02 Dose: 45 mg Documented By: NEERU Phenobarbital (Phenobarbital 30 Mg Tablet) 30 mg PO BID [facility]; Protocol Stop: 05/11/23 21:01 Phenobarbital (Phenobarbital 15 Mg Tablet) 15 mg PO DAILY [facility]; Protocol Stop: 05/13/23 09:01 Phenobarbital Sodium (Phenobarbital Sodium 130 Mg/Ml Vial) 130 mg IM ONCE PRN PRN Reason: Alcohol Withdrawal Last Admin: 05/08/23 01:08 Dose: 130 mg Documented By: LONNIE Sodium Chloride (0.9 % Sodium Chloride Flush 3 Ml Syringe) 3 ml IVFLUSH QSHIFT [facility] Last Admin: 05/08/23 08:02 Dose: 3 ml Documented By: PODMORP Trazodone HCl (Trazodone Hcl 25 Mg Halftab) 25 mg PO BEDTIME PRN PRN Reason: Insomnia Last Admin: 05/08/23 00:53 Dose: 25 mg Documented By: LONNIE Labs 05/08/23 08:17 05/08/23 08:17 Labs: Laboratory Results - last 24 hr 05/07/23 05/07/23 05/07/23 14:21 15:59 16:25 MCV MCH MCHC RDW Plt Count MPV Absolute Nucleated RBC Nucleated RBC % (auto) Hold Purple Top Anion Gap Estim Creat Clear Calc Estimated GFR POC Glucose 192 H Random Glucose Lactic Acid 3.6 H* Lactic Acid F/U @ 2Hr Calcium Magnesium Urine Color Yellow Urine Appearance Clear Urine pH 5.5 Ur Specific [place] >= 1.030 H Urine Protein >=1000 (4+) H Urine Glucose (UA) Negative Urine Ketones 80 Urine Blood Moderate (2+) H Urine Nitrite Negative Ur Leukocyte Esterase Negative Urine RBC 3-5 H Urine WBC 0-5 Ur Squamous Epith Cells 3-5 Urine Bacteria None Seen Hyaline Casts 3-5 Urine Opiates Screen Not Detected Urine Fentanyl Screen Not Detected Ur Barbiturates Screen POSITIVE H Ur Phencyclidine Scrn Not Detected Ur Amphetamines Screen Not Detected U Benzodiazepines Scrn POSITIVE H Urine Cocaine Screen Not Detected U Marijuana (THC) Screen Not Detected COVID-19 ([facility]) COVID-19 Clin Com 05/07/23 05/07/23 05/07/23 16:27 16:39 19:43 MCV MCH MCHC RDW Plt Count MPV Absolute Nucleated RBC Nucleated RBC % (auto) Hold Purple Top Anion Gap Estim Creat Clear Calc Estimated GFR POC Glucose 285 H Random Glucose Lactic Acid Lactic Acid F/U @ 2Hr 3.2 H* Calcium Magnesium Urine Color Urine Appearance Urine pH Ur Specific [place] Urine Protein Urine Glucose (UA) Urine Ketones Urine Blood Urine Nitrite Ur Leukocyte Esterase Urine RBC Urine WBC Ur Squamous Epith Cells Urine Bacteria Hyaline Casts Urine Opiates Screen Urine Fentanyl Screen Ur Barbiturates Screen Ur Phencyclidine Scrn Ur Amphetamines Screen U Benzodiazepines Scrn Urine Cocaine Screen U Marijuana (THC) Screen COVID-19 ([facility]) Negative COVID-19 [employer] Com See Note 05/07/23 05/07/23 05/08/23 20:15 23:27 04:51 MCV MCH MCHC RDW Plt Count MPV Absolute Nucleated RBC Nucleated RBC % (auto) Hold Purple Top SEE NOTE Anion Gap Estim Creat Clear Calc Estimated GFR POC Glucose 249 H 157 H Random Glucose Lactic Acid Lactic Acid F/U @ 2Hr Calcium Magnesium Urine Color Urine Appearance Urine pH Ur Specific [place] Urine Protein Urine Glucose (UA) Urine Ketones Urine Blood Urine Nitrite Ur Leukocyte Esterase Urine RBC Urine WBC Ur Squamous Epith Cells Urine Bacteria Hyaline Casts Urine Opiates Screen Urine Fentanyl Screen Ur Barbiturates Screen Ur Phencyclidine Scrn Ur Amphetamines Screen U Benzodiazepines Scrn Urine Cocaine Screen U Marijuana (THC) Screen COVID-19 ([facility]) COVID-[facility] 05/08/23 05/08/23 05/08/23 07:16 08:17 10:48 MCV 84.5 MCH 30.0 MCHC 35.5 RDW 11.9 Plt Count 138 L D MPV 8.9 L Absolute Nucleated RBC 0.000 Nucleated RBC % (auto) 0.0 Hold Purple Top Anion Gap 14 Estim Creat Clear Calc 105.7 Estimated GFR > 60 POC Glucose 188 H 211 H Random Glucose 204 H Lactic Acid Lactic Acid F/U @ 2Hr Calcium 7.8 L D Magnesium 1.9 Urine Color Urine Appearance Urine pH Ur Specific [place] Urine Protein Urine Glucose (UA) Urine Ketones Urine Blood Urine Nitrite Ur Leukocyte Esterase Urine RBC Urine WBC Ur Squamous Epith Cells Urine Bacteria Hyaline Casts Urine Opiates Screen Urine Fentanyl Screen Ur Barbiturates Screen Ur Phencyclidine Scrn Ur Amphetamines Screen U Benzodiazepines Scrn Urine Cocaine Screen U Marijuana (THC) Screen COVID-19 ([facility]) COVID-19 [employer] Com 05/08/23 11:17 MCV MCH MCHC RDW Plt Count MPV Absolute Nucleated RBC Nucleated RBC % (auto) Hold Purple Top Anion Gap Estim Creat Clear Calc Estimated GFR POC Glucose 212 H Random Glucose Lactic Acid Lactic Acid F/U @ 2Hr Calcium Magnesium Urine Color Urine Appearance Urine pH Ur Specific [place] Urine Protein Urine Glucose (UA) Urine Ketones Urine Blood Urine Nitrite Ur Leukocyte Esterase Urine RBC Urine WBC Ur Squamous Epith Cells Urine Bacteria Hyaline Casts Urine Opiates Screen Urine Fentanyl Screen Ur Barbiturates Screen Ur Phencyclidine Scrn Ur Amphetamines Screen U Benzodiazepines Scrn Urine Cocaine Screen U Marijuana (THC) Screen COVID-19 ([facility]) COVID-19 Clin Com Assessment and Plan (1) Lactic acidosis: Status: Acute (2) Alcohol withdrawal: Status: Acute (3) Alcoholic ketoacidosis: Status: Acute (4) Acute hypokalemia: Status: Acute Plan Pt is a 57-year-old male with a PMH significant for?alcohol use disorder with hx of withdrawal, HTN, HLD, GERD, noninsulin dependent type 2 diabetes, hx of hepatitis, Valles's esophagus, SEBASTIAN on CPAP, benign essential tremor, and cocaine use disorder who presents to the ED with?intractable nausea and seeking detox. Pt will be admitted to the hospital for treatment and further evaluation of acute alcohol withdrawal. Acute alcohol withdrawal with Alcoholic Ketoacidosis improving Last drink 05/06 evening Continue Phenobarb protocol Thiamine and folic acid PO D5NS IVF advance to regular CIWA scale. Seizure protocols Addiction medicine consult Monitor on telemetry Elevated lactic acid Likely secondary to N/V, metformin use not sepsis No evidence of bacterial infection Tachycardia and tachypnea secondary to alcohol withdrawal, not sepsis Acute hypokalemia replacement give, follow BMP HTN Continue labetalol Benign essential tremor Continue primidone HLD Continue statin Mood disorder Continue paroxetine, quetiapine Full Code DVT Prophylaxis: Lovenox Pt will require a hospitalization overnight for treatment of alcohol withdrawal with history that include auditory and visual hallucinations, patient will require hospitalized care to administer phenobarb protocol and provide close monitoring of labs, vitals, and cardiac functioning. Quality Stroke Does the patient have a stroke diagnosis?: No VTE Prior VTE?: No VTE Risk Level:: Medical - moderate - high VTE Device Contraindication: Treatment Not Indicated VTE Drug Contraindication: N/A - Med Ordered
[2023-05-08] MEDS: Potassium Chloride Packet 20 MEQ PACKET 40 MEQ PO (13:41)
[2023-05-08] MEDS: Dextrose 5 % and 0.9 % NaCl 1,000 ML 100 ML IVCONT (15:30)
[2023-05-08] MEDS: Omeprazole 40 MG CAPSULE.DR PO (15:39)
[2023-05-08] MEDS: Enoxaparin Sodium 40 MG/0.4 ML SYRINGE SUBCUT (15:39)
[2023-05-08 16:11] LABS: Glucose, Whole Blood 163 mg/dL (60-115)
--- NOTE | 2023-05-08 16:25 | MHC.CM.PN ---
CM MET WITH PT AND S/O PT LIVES WITH S/O AND IS INDEPENDENT WITH CARE HE CURRENTLY HAS NO SERVICES BUT REPORTS HE WAS GOING TO THE [facility] FOR [facility] AND WOULD LIKE TO RETURN HE HAS A CPAP FOR DME HCP ON FILE PCP: THERESA CAVANAUGH DCP: HOME ? [facility] APPT W/O TO TRANSPORT
[2023-05-08] MEDS: PHENobarbitaL sodium 130 MG/ML VIAL 65 MG IM (18:18)
[2023-05-08] MEDS: QUEtiapine Fumarate 200 MG TABLET PO (18:28)
[2023-05-08 20:38] LABS: Glucose, Whole Blood 226 mg/dL (60-115)
[2023-05-09] VITALS: BP 142/76; PULSE 88; RESP 20; TEMP 36.1; O2SAT 96
[2023-05-09] MEDS: 0.9 % Sodium Chloride Flush 3 ML SYRINGE IVFLUSH ×2 (00:36→22:11)
[2023-05-09] MEDS: Dextrose 5 % and 0.9 % NaCl 1,000 ML 100 ML IVCONT ×2 (02:40→13:24)
[2023-05-09 03:19] VITALS: BP 159/94; PULSE 92; RESP 20; TEMP 36.1; O2SAT 98
[2023-05-09] MEDS: Omeprazole 40 MG CAPSULE.DR PO (06:07)
[2023-05-09 07:12] VITALS: BP 142/94; PULSE 84; RESP 20; TEMP 36.5; O2SAT 96
[2023-05-09 07:21] LABS: Hematocrit 33.3 % (42.0-52.0); Hemoglobin 12.1 g/dl (14.0-18.0); Mean Corpuscular HGB Conc 36.3 g/dl (31.0-36.0); Mean Corpuscular Hemoglobin 30.8 pg (27.0-33.0); Mean Corpuscular Volume 84.7 fL (80.0-98.0); Mean Platelet Volume 9.4 fL (9.4-12.4); Platelet Count 136 X10*3/uL (160-400); Red Blood Count 3.93 X10*6/uL (4.60-5.80); Red Cell Distribution Width 11.9 % (11.0-16.0); White Blood Count 3.6 X10*3/uL (4.8-10.8)
[2023-05-09 07:21] LABS: Glucose, Whole Blood 251 mg/dL (60-115)
[2023-05-09 07:32] LABS: Anion Gap 13 (12-20); Blood Urea Nitrogen 10 mg/dL (9-16); Calcium 7.8 mg/dL (8.4-10.2); Carbon Dioxide 24 mmol/L (22-29); Chloride 105 mmol/L (96-108); Creatinine Clr Calc Pharmacy 118.5; Estimated Glomerular Filt Rate > 60; Glucose Random 257 mg/dL (60-115); Potassium 2.9 mmol/L (3.3-5.1); Sodium 139 mmol/L (135-145)
[2023-05-09] MEDS: Thiamine HCL 100 MG TABLET PO (07:46)
[2023-05-09] MEDS: Multivitamin TABLET 1 TAB PO (07:46)
[2023-05-09] MEDS: Insulin Lispro 100 UNIT/ML 3 ML VIAL SUBCUT ×4 (07:47→22:07)
[2023-05-09] MEDS: Folic Acid 1 MG TABLET PO (07:47)
[2023-05-09] MEDS: PHENobarbitaL 15 MG TABLET 45 MG PO ×2 (07:47→22:08)
[2023-05-09] MEDS: Potassium Chloride Packet 20 MEQ PACKET 40 MEQ PO ×2 (07:50→10:18)
--- NOTE | 2023-05-09 10:20 | HO.PM.IMPN ---
Subjective Subjective Date of Service: 05/09/23 Interval History: Seen and evaluated this morning improving overall, rough night but less tremors and axiety this morning tolerating regular, no nausea or vomiting no other overnight events Review of Systems Review of Systems: Yes all other systems are reviewed and are negative Physical Exam Vital Signs: Vital Signs: Last Vital Signs Temp 97.7 F 05/09/23 07:12 Pulse 84 05/09/23 07:12 Resp 20 05/09/23 07:12 BP 142/94 H 05/09/23 07:12 Pulse Ox 96 05/09/23 07:12 O2 Del Method Room Air 05/09/23 07:12 O2 Flow Rate 4 05/08/23 07:18 BMI result Body Mass Index 29.9 Const: Other: Constitutional : Awake, interactive, not in distress Neck : Normal inspection, Supple Cardiovascular : RRR, no JVP, no lower extremity edema Respiratory : good bilateral air entry, no crackles, wheezes or rhonchi Gastrointestinal: soft, lax, Normal bowel sounds, Non tender Skin : Warm, Dry Neurological : Alert & oriented x3, No focal deficit , mild hands tremor Objective Data Active Medications Acetaminophen (Acetaminophen 325 Mg Tablet) 650 mg PO Q6H PRN PRN Reason: Pain, Mild (Pain Scale 1-3) Last Admin: 05/07/23 23:53 Dose: 650 mg Documented By: LONNIE Benzonatate (Benzonatate 100 Mg Capsule) 100 mg PO TID PRN PRN Reason: Cough Dextrose (Dextrose 50 % 25 Gm/50 Ml Syringe) 25 gm IVPUSH Q15M PRN; Protocol PRN Reason: per Hypoglycemia Standing Ord. Docusate Sodium (Docusate Sodium 100 Mg Capsule) 100 mg PO DAILY PRN PRN Reason: Constipation Enoxaparin Sodium (Enoxaparin Sodium 40 Mg/0.4 Ml Syringe) 40 mg SUBCUT Q24H [facility] Last Admin: 05/08/23 15:39 Dose: 40 mg Documented By: NATALIE Folic Acid (Folic Acid 1 Mg Tablet) 1 mg PO DAILY [facility] Last Admin: 05/09/23 07:47 Dose: 1 mg Documented By: MCKENZIE Glucose (Glucose Gel 15 Gm Gel..Gram.) 15 gm PO Q15M PRN; Protocol PRN Reason: per Hypoglycemia Standing Ord. Dextrose/Sodium Chloride (D5ns) 1,000 mls @ 100 mls/hr IVCONT .Q10H [facility] Last Admin: 05/09/23 02:40 Dose: 100 mls/hr Documented By: DIO Insulin Human Lispro (Insulin Lispro 100 Unit/Ml 3 Ml Vial) 0 unit SUBCUT QIDACHS [facility]; Protocol Last Admin: 05/09/23 07:47 Dose: 6 unit Documented By: MCKENZIE Multivitamins/Vitamin C (Multivitamin Tablet) 1 tab PO DAILY [facility] Stop: 05/11/23 08:59 Last Admin: 05/09/23 07:46 Dose: 1 tab Documented By: MCKENZIE Nitroglycerin (Nitroglycerin 0.4 Mg Tab.Subl) 0.4 mg SUBLINGUAL Q5MX3 PRN PRN Reason: Chest Pain Last Admin: 05/08/23 00:03 Dose: 0.4 tab Documented By: LONNIE Omeprazole (Omeprazole 40 Mg Capsule.Dr) 40 mg PO DAILY@0630 [facility] Last Admin: 05/08/23 15:39 Dose: 40 mg Documented By: NATALIE Ondansetron HCl (Ondansetron Hcl 4 Mg/2 Ml Vial) 4 mg IVPUSH Q8H PRN PRN Reason: Nausea and Vomiting Last Admin: 05/07/23 23:51 Dose: 4 mg Documented By: LONNIE Pharmacy Consult (Consult Rx Etoh Phenob Im/Po) 1 each MISCELLANE ONCE PRN; Protocol PRN Reason: Consult order Phenobarbital (Phenobarbital 15 Mg Tablet) 45 mg PO BID [facility]; Protocol Stop: 05/09/23 21:01 Last Admin: 05/09/23 07:47 Dose: 45 mg Documented By: MCKENZIE Phenobarbital (Phenobarbital 30 Mg Tablet) 30 mg PO BID [facility]; Protocol Stop: 05/11/23 21:01 Phenobarbital (Phenobarbital 15 Mg Tablet) 15 mg PO DAILY [facility]; Protocol Stop: 05/13/23 09:01 Phenobarbital Sodium (Phenobarbital Sodium 130 Mg/Ml Vial) 130 mg IM ONCE PRN PRN Reason: Alcohol Withdrawal Last Admin: 05/08/23 01:08 Dose: 130 mg Documented By: LONNIE Sodium Chloride (0.9 % Sodium Chloride Flush 3 Ml Syringe) 3 ml IVFLUSH QSHIFT [facility] Last Admin: 05/09/23 07:47 Dose: Not Given Documented By: MCKENZIE Non-Admin Reason: IV Running Thiamine HCl (Thiamine Hcl 100 Mg Tablet) 100 mg PO DAILY [facility] Last Admin: 05/09/23 07:46 Dose: 100 mg Documented By: MCKENZIE Trazodone HCl (Trazodone Hcl 25 Mg Halftab) 25 mg PO BEDTIME PRN PRN Reason: Insomnia Last Admin: 05/08/23 20:57 Dose: 25 mg Documented By: NATALIE Labs 05/09/23 06:04 05/09/23 06:04 Labs: Laboratory Results - last 24 hr 05/08/23 05/08/23 05/08/23 10:48 11:17 16:07 MCV MCH MCHC RDW Plt Count MPV Absolute Nucleated RBC Nucleated RBC % (auto) Anion Gap Estim Creat Clear Calc Estimated GFR POC Glucose 211 H 212 H 163 H Random Glucose Calcium Magnesium 05/08/23 05/09/23 05/09/23 20:34 06:04 07:14 MCV 84.7 MCH 30.8 MCHC 36.3 H RDW 11.9 Plt Count 136 L MPV 9.4 Absolute Nucleated RBC 0.000 Nucleated RBC % (auto) 0.0 Anion Gap 13 Estim Creat Clear Calc 118.5 Estimated GFR > 60 POC Glucose 226 H 251 H Random Glucose 257 H Calcium 7.8 L Magnesium 2.0 Assessment and Plan (1) Alcohol withdrawal: Status: Acute (2) Alcoholic ketoacidosis: Status: Acute (3) Alcohol use disorder, severe, dependence: Status: Acute Plan Pt is a 57-year-old male with a PMH significant for?alcohol use disorder with hx of withdrawal, HTN, HLD, GERD, noninsulin dependent type 2 diabetes, hx of hepatitis, Valles's esophagus, SEBASTINA on CPAP, benign essential tremor, and cocaine use disorder who presents to the ED with?intractable nausea and seeking detox. Pt will be admitted to the hospital for treatment and further evaluation of acute alcohol withdrawal. Acute alcohol withdrawal with Alcoholic Ketoacidosis improving Continue Phenobarb protocol, add extra if needed Thiamine and folic acid PO D5NS IVF advance to regular CIWA scale. Seizure protocols Addiction medicine consult Monitor on telemetry Elevated lactic acid resolved, Likely secondary to N/V, metformin use not sepsis Acute hypokalemia replacement give, follow BMP HTN Continue labetalol Benign essential tremor Continue primidone HLD Continue statin Mood disorder Continue paroxetine, quetiapine Full Code DVT Prophylaxis: Lovenox Pt will require a hospitalization overnight for treatment of alcohol withdrawal with history that include auditory and visual hallucinations, patient will require hospitalized care to administer phenobarb protocol and provide close monitoring of labs, vitals, and cardiac functioning. Quality Stroke Does the patient have a stroke diagnosis?: No VTE Prior VTE?: No VTE Risk Level:: Medical - moderate - high VTE Device Contraindication: Treatment Not Indicated VTE Drug Contraindication: N/A - Med Ordered
[2023-05-09 11:03] LABS: Glucose, Whole Blood 254 mg/dL (60-115)
[2023-05-09 11:42] VITALS: BP 154/92; PULSE 90; RESP 20; TEMP 36.5; O2SAT 98
[2023-05-09] MEDS: Acetaminophen 325 MG TABLET 650 MG PO ×2 (13:24→22:19)
--- NOTE | 2023-05-09 13:52 | MHC.RECOVRN ---
Met with pt in 486 after consult placed to Addiction Medicine for alcohol use. Pt had presented to the ED reporting withdrawal from alcohol, seeking ATS, abdominal pain/vomiting. Upon evaluation, pt admitted for alcohol withdrawal and alcoholic ketoacidosis. Pt sitting in bed, awake, alert, easily engages in conversation. Pt reports alcohol use x 1 week, bourbon, as much as I can until I pass out. Pt reports prior to this week last drink was 6 weeks ago. Pt reports receiving Vivitrol through [facility] in in [place] x 5-6 months, last injection 4-5 weeks ago. Pt reports he has experienced back pain after the past 2 injections, however, does attribute Vivitrol to decreasing alcohol use so he would like to continue. Pt reports desire to change [facility] office. Educated pt on [facility], pt declines t/w making appt, reports he will call the office. Pt plans to continue naltrexone, reports having multiple prescriptions at home. Discussed other recovery support options, pt declines referrals at this time. Pt reports working 50 hours per week and does not have time or energy for additional recovery support. Provided pt with written resources as well as t/w contact information if needed. Plan for pt to continue PO naltrexone and call the [facility] to schedule intake appt. Discussed with Cheri Méndez APRN.
[2023-05-09 15:40] VITALS: BP 158/84; PULSE 81; RESP 18; TEMP 36.3; O2SAT 96
[2023-05-09] MEDS: PHENobarbitaL sodium 130 MG/ML VIAL IM (16:08)
[2023-05-09] MEDS: Enoxaparin Sodium 40 MG/0.4 ML SYRINGE SUBCUT (16:09)
[2023-05-09] MEDS: Ketorolac Tromethamine 15 MG/ML VIAL IVPUSH (16:09)
[2023-05-09 16:14] LABS: Glucose, Whole Blood 188 mg/dL (60-115)
[2023-05-09 20:00] VITALS: BP 176/43; PULSE 88; RESP 20; TEMP 35.6; O2SAT 98
[2023-05-09 20:19] LABS: Glucose, Whole Blood 230 mg/dL (60-115)
[2023-05-10] VITALS: BP 164/95; PULSE 87; RESP 18; TEMP 36.2; O2SAT 98
[2023-05-10] MEDS: QUEtiapine Fumarate 200 MG TABLET PO (00:54)
[2023-05-10] MEDS: traMADoL HCL 50 MG TABLET 25 MG PO (00:54)
[2023-05-10 04:00] VITALS: BP 157/99; PULSE 81; RESP 18; TEMP 36.1; O2SAT 98
[2023-05-10] MEDS: Omeprazole 40 MG CAPSULE.DR PO (06:37)
[2023-05-10 07:20] VITALS: BP 149/83; PULSE 81; RESP 20; TEMP 36.7; O2SAT 97
[2023-05-10 07:37] LABS: Anion Gap 13 (12-20); Blood Urea Nitrogen 13 mg/dL (9-16); Calcium 8.8 mg/dL (8.4-10.2); Carbon Dioxide 25 mmol/L (22-29); Chloride 105 mmol/L (96-108); Creatinine Clr Calc Pharmacy 123.6; Estimated Glomerular Filt Rate > 60; Glucose Random 194 mg/dL (60-115); Magnesium 1.7 mg/dL (1.6-2.6); Potassium 3.1 mmol/L (3.3-5.1); Sodium 140 mmol/L (135-145)
[2023-05-10 07:58] LABS: Glucose, Whole Blood 178 mg/dL (60-115)
[2023-05-10] MEDS: Multivitamin TABLET 1 TAB PO (08:00)
[2023-05-10] MEDS: PHENobarbitaL 30 MG TABLET PO (08:00)
[2023-05-10] MEDS: Folic Acid 1 MG TABLET PO (08:00)
[2023-05-10] MEDS: Insulin Lispro 100 UNIT/ML 3 ML VIAL SUBCUT ×2 (08:00→11:55)
[2023-05-10] MEDS: Thiamine HCL 100 MG TABLET PO (08:00)
[2023-05-10] MEDS: 0.9 % Sodium Chloride Flush 3 ML SYRINGE IVFLUSH (08:02)
[2023-05-10] MEDS: Potassium Chloride ER 20 MEQ TAB.ER.PRT 40 MEQ PO (09:11)
[2023-05-10] MEDS: Acetaminophen 325 MG TABLET 650 MG PO (09:11)
--- NOTE | 2023-05-10 09:50 | PM.DS ---
DS: Providers Provider Date of Service: 05/10/23 Date of admission: 05/07/23 15:07 Primary care physician: ANG Rivera Consults: 05/07/23 14:57 Addiction Medicine Routine Consulting Provider: Addiction Covering Reason for consultation: Alcohol Withdrawal DS: Diagnosis Discharge Diagnosis (1) Alcohol withdrawal: Status: Acute (2) Alcoholic ketoacidosis: Status: Acute (3) Alcohol use disorder, severe, dependence: Status: Acute DS: Summary Hospital Course Hospital Course: from initial hpi: 57-year-old male with a PMH significant for?alcohol use disorder with hx of withdrawal, HTN, HLD, GERD, noninsulin dependent type 2 diabetes, hx of hepatitis, Valles's esophagus, SEBASTIAN on CPAP, benign essential tremor, and cocaine use disorder who presents to the ED with?intractable nausea and seeking detox. Patient apparently was previously sober for 5-6 months, but has been drinking ?as much as possible? the past week, primarily wine and bourbon. Girlfriend is at bedside who supplement HPI. Last drink some time between 23:30 last night and 07:00 this morning. Patient states that he has been having daily nausea episodes of vomiting, though was unable to clarify exactly how much. Denies any hematemesis. Patient also endorses vague auditory and visual hallucinations, but patient is again unable to clarify exactly what he is hearing and seeing or for how long. Girlfriend also notes patient has been more restless and agitated than normal, constantly pacing around the room. Pt has a hx of cocaine use but she is unsure if he has been using recently. Has had diaphoresis and increased anxiety. Patient presented this morning due to severe nausea. Denies fever, chills. No chest pain/pressure, palpitations. No SOB. In the ED pt was afebrile but tachycardic up to 122, tachypneic up to 25, and hypertensive up to 158/104. Labs were significant for chloride 86, anion gap 34, creatinine 1.1, AST 59, beta hydroxybutyrate 2.10, and and ethyl alcohol levels of 259. Pt was treated with lorazepam, midazolam, IVF, thiamine, ondansetron, IVF, and started on phenobarb protocol. Pt will be admitted to the hospital for treatment and further evaluation of acute alcohol withdrawal. hospital course: patient was admitted for alcohol dependence with withdrawal and alcoholic ketoacidosis. He was treated with phenobarbital and withdrawal symptoms resolved. Alcohol cessation is recommended. Acute lactic acidosis due to metformin, not sepsis. Patient had acute hypokalemia which was replaced. For hypertension was continued on labetalol. For essential tremor was continued on primidone. For hyperlipidemia is continue statin. For mood disorder was continued on Paxil and quetiapine. Patient is feeling better will be discharged home. Time Attestation Discharge coordination time: Greater than 30 minutes Quality: Safe Use of Opioids Does Pt have an Active Cancer Diagnosis on the Problem List?: No Quality: Stroke Does the patient have a stroke diagnosis?: No Physical Exam Vital Signs: Vital Signs: Last Vital Signs Temp 98.0 F 05/10/23 07:20 Pulse 81 05/10/23 07:20 Resp 20 05/10/23 07:20 BP 149/83 H 05/10/23 07:20 Pulse Ox 97 05/10/23 07:20 O2 Del Method Room Air 05/10/23 07:20 O2 Flow Rate 4 05/08/23 07:18 BMI result Body Mass Index 29.9 General: AO X 3, no acute distress Resp: CTA bilateral, no accessory muscles used CVS: S1,S2,RRR GI: soft, non tender, non distended Neuro: motor grossly intact, alert Psych: appropriate affect, appropriate insight DS: Data Data Completed and Pending Completed studies during hospitalization [Text1]: Procedures Detoxification Services for Substance Abuse Treatment (09/04/22) Drainage of Right Axilla, Open Approach (10/22/21) Labs on day of discharge: Laboratory Results - last 24 hr 05/09/23 05/09/23 05/09/23 10:59 16:10 20:13 Hold Purple Top Sodium Potassium Chloride Carbon Dioxide Anion Gap BUN Creatinine Estim Creat Clear Calc Estimated GFR POC Glucose 254 H 188 H 230 H Random Glucose Calcium Magnesium 05/10/23 05/10/23 05:49 07:55 Hold Purple Top SEE NOTE Sodium 140 Potassium 3.1 L Chloride 105 Carbon Dioxide 25 Anion Gap 13 BUN 13 Creatinine 0.71 Estim Creat Clear Calc 123.6 Estimated GFR > 60 POC Glucose 178 H Random Glucose 194 H Calcium 8.8 D Magnesium 1.7 Discharge Plan Discharge Anticipated Discharge Date/Time: 05/10/23 09:47 Patient Disposition: Home, Self-Care Discharge Diagnosis: etoh withdrawal Referrals: Miky Avitia, [employer] [Primary Care Provider] - 1 Week Discharge Medications: Continued labetalol 300 mg tablet 300 mg PO BID Qty: 180 1RF paroxetine HCl 40 mg tablet 40 mg PO DAILY Qty: 30 0RF metformin 500 mg tablet 500 mg PO BID rosuvastatin 20 mg tablet 20 mg PO BEDTIME pantoprazole 40 mg tablet,delayed release (DR/EC) 40 mg PO DAILY@0630 primidone 50 mg tablet 100 mg PO BID quetiapine 100 mg tablet 200 mg PO BEDTIME PRN (Reason: anxiety) Discharge Orders: Discharge Order (Routine); Ordered 05/10/23 Ordered By: Herson Worthy Diet: Advance to usual diet Activity on Discharge: As tolerated Stand Alone Forms: Patient Portal Discharge page Care Plan Goals: recovery Health Concerns: etoh dependence Plan of Treatment: no etoh Assessment: see above
[2023-05-10] MEDS: oxyCODONE HCl Immed Release 5 MG TABLET PO (09:56)
--- NOTE | 2023-05-10 09:58 | MHC.CM.PN ---
PT MEDICALLY CLEARED FOR DC HOME SELF-CARE, PT'S S.O. FOR TRANSPORT
[2023-05-10 11:24] LABS: Glucose, Whole Blood 237 mg/dL (60-115)
[2023-05-10 11:49] VITALS: BP 144/86; PULSE 82; RESP 20; TEMP 36.7; O2SAT 98
== END 2023-05-10 13:18 | disposition home or self-care (01) | DRG 774 ==
LOC: HO.ED 11:18 → HO.EDOVER 15:08 → HO.IMC 16:02
PROVIDERS: Internal Medicine; Physician Assistant; Student in an Organized Health Care Education/Training Program; Admitting Provider Student in an Organized Health Care Education/Training Program; Emergency Provider Emergency Medicine; PCP Nurse Practitioner Family; Visit Provider Internal Medicine
DX: F10.231 Alcohol dependence with withdrawal delirium (principal); F14.10 Cocaine abuse, uncomplicated; E87.29 Other acidosis; F10.229 Alcohol dependence with intoxication, unspecified; E87.6 Hypokalemia; F39 Unspecified mood [affective] disorder; E78.5 Hyperlipidemia, unspecified; G25.0 Essential tremor; I10 Essential (primary) hypertension; E11.9 Type 2 diabetes mellitus without complications; G47.33 Obstructive sleep apnea (adult) (pediatric); Y90.8 Blood alcohol level of 240 mg/100 ml or more; Z87.891 Personal history of nicotine dependence; Z20.822 Contact with and (suspected) exposure to COVID-19; Z79.84 Long term (current) use of oral hypoglycemic drugs; Z79.899 Other long term (current) drug therapy
CPT/HCPCS: 36415; 80048; 80053; 80143; 80179; 80307; 81001; 82010; 82947; 83605; 83735; 84484; 85025; 85027; 87635; 93005; 99285; C9113; J0737; J1650; J1885; J2250; J2270; J2405; J2560; J3411

== ENCOUNTER 2023-05-07 15:07 | Outpatient (BNV) | payer OTHER, SELFPAY | END 2023-05-07 22:43 | PROVIDERS: Admitting Provider Student in an Organized Health Care Education/Training Program; Emergency Provider Emergency Medicine; PCP Nurse Practitioner Family; Visit Provider Internal Medicine Cardiovascular Disease | DX: R94.31 Abnormal electrocardiogram [ECG] [EKG] (principal) | CPT/HCPCS: 93010 ==

== ENCOUNTER 2023-05-07 15:07 | Outpatient (BNV) | payer OTHER, SELFPAY | END 2023-05-08 14:00 | PROVIDERS: Admitting Provider Student in an Organized Health Care Education/Training Program; Emergency Provider Emergency Medicine; PCP Nurse Practitioner Family; Visit Provider Internal Medicine Cardiovascular Disease | DX: R94.31 Abnormal electrocardiogram [ECG] [EKG] (principal) | CPT/HCPCS: 93010 ==

== ENCOUNTER → 2023-05-07 15:07 | Outpatient (BNV) | payer OTHER, SELFPAY | PROVIDERS: Admitting Provider Student in an Organized Health Care Education/Training Program; Emergency Provider Emergency Medicine; PCP Nurse Practitioner Family; Visit Provider Student in an Organized Health Care Education/Training Program | DX: F10.288 Alcohol dependence with other alcohol-induced disorder (principal); E87.29 Other acidosis; F10.239 Alcohol dependence with withdrawal, unspecified | CPT/HCPCS: 99223; 99232; 99233; 99239 ==

== ENCOUNTER 2023-05-30 07:57 | Outpatient (AMB) | payer OTHER, SELFPAY ==
--- NOTE | 2023-05-30 07:07 | MHC.PC.OV ---
Intake Visit Reasons: Med review [phone] Allergies No Known Allergies [No Known Allergies*] Allergy (Verified 05/07/23 10:16) Medication List - Last Reconciled 05/30/23 by MARNIE Gaytan- labetalol 300 mg PO BID metformin 500 mg PO BID pantoprazole 40 mg PO DAILY@0630 paroxetine HCl 40 mg PO DAILY primidone 100 mg PO BID quetiapine 200 mg PO BEDTIME PRN rosuvastatin 20 mg PO BEDTIME Tobacco use date assessed: 11/15/22 HPI Med review [phone] HPI Details Pt was seen in the ER on 05/07 after binge drinking, c/o tremors, nausea, and hallucinations. In the ER pt was tacycardic up to 122, tachypneic up to 25, hypertensive up to 158/104. Labs were significant for chloride 86, anion gap 34, creatinine 1.1, AST 59, beta hydroxybutyrate 2.10, and and ethyl alcohol levels of 259. Pt was treated with lorazepam, midazolam, thiamine, zofran, and IV fluids. He was started on phenobarbital protocol, withdrawal symptoms resolved. Pt had acute hypokalemia which was replaced. Pt reports that he has not been drinking alcohol. He reports doing well overall. Will order labs. Denies fever, chills, and N/V/D. Pt is a diabetic, on a statin. Last A1C was 6.9, due for repeat. Microalbumin is up to date. Denies polyuria, polydipsia, and neuropathy. Pt denies any signs and symptoms of hypoglycemia and does know how to correct it. Pt has not been checking his blood sugar. Will order labs. [facility] Medical History Obstructive sleep apnea Essential and other specified forms of tremor Hypersomnolence Snoring Diabetes mellitus Alcoholic ketoacidosis Anxiety with depression Alcohol use disorder, severe, dependence Recurrent moderate major depressive disorder with anxiety Insomnia Alcohol withdrawal History of alcoholic hepatitis HTN (hypertension) Acute hepatitis Alcohol abuse with withdrawal Obesity (BMI 30-39.9) GERD without esophagitis Mixed hyperlipidemia Benign essential hypertension Surgical History History of esophagogastroduodenoscopy (EGD) H/O colonoscopy Family History Father Advanced cirrhosis of liver Alcoholic cirrhosis Substance use disorder Mother Dementia Maternal Grandfather Substance use disorder Sister Substance use disorder Maternal Grandfather Colon cancer Prostate cancer Social History Household Members: Significant Other Household Members Other:: Cousin Housing: House Do you presently have visiting nurse or other home services: No Alcohol intake: current Alcohol intake frequency: 3 or more drinks per day Alcohol type: wine and hard liquor Patient Tobacco Use Status: Former Tobacco user Tobacco use type: Cigarette Years Smoked: quit 10 years ago e-Cigarette/Vaping Use: Never Used Second Hand Smoke Exposure: No Substance Use Type: Crack/Cocaine Advance Directives Date on File: 10/23/21 service: No Current occupational status: 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 Colby Mariano, Cindy Baez, Jose Luis Gonzalez and colleagues, with an educational vinicio from [employer]. Review of Systems Const Reports as per HPI Physical exam (Primary Care) Tobacco/Smoking Status: Tobacco use Status Tobacco use date assessed 11/15/22 11/15/22 15:58 Patient Tobacco Use Status Former Tobacco user 05/10/23 09:48 Tobacco use type Cigarette 05/07/23 18:20 e-Cigarette/Vaping Use Never Used 11/15/22 15:53 Thrive Assessment: Date of Thrive Assessment Date Thrive assessed 05/08/23 05/09/23 08:43 Const General: cooperative Orientation/consciousness: patient oriented x3 Neuro General: patient oriented x3 Psych Appearance: grossly normal Mental Status: mental status grossly normal Speech and movement: Clear speech present Affect: normal affect Attitude: cooperative Thought process: Normal thought process present Thought content: Normal thought content present Insight: Good insight present (Psych) Judgement: Good judgement present (Psych) Telehealth Telehealth Location of provider rendering services: practice address Location of patient: address on file Patient Identification confirmed using: Name, : Yes Telehealth method: video Patient verbally consented to treatment: Yes Patient verbally consented to billing insurance company: Yes Patient informed of any privacy concerns related to visit: Yes Minutes spent on Phone/Video with Pt.: 10 Assessment and Plan Assessment & Plan (1) Diabetes mellitus: Code(s): E11.9 - Type 2 diabetes mellitus without complications Plan: Labs ordered (2) Alcohol use disorder, severe, dependence: Code(s): F10.20 - Alcohol dependence, uncomplicated Plan: Labs ordered Plan The patient agreed to the use of a medical staff services manager for this encounter. Scribed for MARNIE Cross-MATTY by Griselda Mario medical staff services manager, on 05/30/2023 at 07:05 EST. Orders: Orders Comprehensive [place]. Panel Fast Today F10.20 - Alcohol dependence, uncomplicated TSH reflex Free T4 Today F10.20 - Alcohol dependence, uncomplicated UA CC w/rflx Micro + Cult Today F10.20 - Alcohol dependence, uncomplicated Lipid Panel Today F10.20 - Alcohol dependence, uncomplicated Microalbumin, Random (w Creat) Today E11.9 - Type 2 diabetes mellitus without complications Complete Blood Count Auto Diff Today F10.20 - Alcohol dependence, uncomplicated Prostate Specific Antigen Scr Today Z12.5 - Encounter for screening for malignant neoplasm of prostate Hemoglobin A1c Today E11.9 - Type 2 diabetes mellitus without complications Medications: New pantoprazole 40 mg PO DAILY@0630 90 tabs 0RF Coding Level of Care Code Tele Est Pt Level 3 (79170) Diagnoses Diabetes mellitus E11.9 Alcohol use disorder, severe, dependence F10.20
== END 2023-05-30 17:17 | disposition home or self-care (01) ==
PROVIDERS: PCP Nurse Practitioner Family; Visit Provider Nurse Practitioner Family
DX: E11.9 Type 2 diabetes mellitus without complications (principal); F10.20 Alcohol dependence, uncomplicated
CPT/HCPCS: 99213

== ENCOUNTER 2023-07-29 08:33 | Outpatient (REF) | payer OTHER, SELFPAY ==
[2023-07-29 10:25] LABS: MANUAL DIFF FLAG NO
[2023-07-29 10:34] LABS: Appearance Urine Clear; Color Urine Yellow; Glucose Urine UA Negative (Negative); Leukocyte Esterase Urine Negative (Negative); Nitrite Urine Negative (Negative); PH 5.5 (5.0-9.0); Urine Blood Negative (Negative); Urine Ketones Negative (Negative); Urine Protein Negative (Neg-Trace)
[2023-07-29 10:46] LABS: Basophils Percent Auto 0.7 % (0-2); Eosinophils Absolute Auto 0.1 X10*3/uL (0.0-0.4); Eosinophils Percent Auto 3.2 % (0-4); Hematocrit 41.9 % (42.0-52.0); Hemoglobin 14.4 g/dl (14.0-18.0); Imm Gran Abs Auto 0.01 X10*3/uL (0.00-0.03); Imm Gran Pct Auto 0.2 % (0.0-0.4); Lymphocytes Absolute Auto 1.4 X10*3/uL (1.2-4.9); Lymphocytes Percent Auto 30.5 % (20-40); Mean Corpuscular HGB Conc 34.4 g/dl (31.0-36.0); Mean Corpuscular Volume 87.3 fL (80.0-98.0); Mean Platelet Volume 9.6 fL (9.4-12.4); Monocytes Absolute Auto 0.3 X10*3/uL (0.1-1.2); Monocytes Percent Auto 6.8 % (2-11); Neutrophils Absolute Auto 2.6 x10*3/uL (2.0-8.3); Neutrophils Percent Auto 58.6 % (45-73); Platelet Count 205 X10*3/uL (160-400); Red Cell Distribution Width 12.6 % (11.0-16.0); White Blood Count 4.4 X10*3/uL (4.8-10.8)
[2023-07-29 11:07] LABS: Estimated Average Glucose 169 mg/dL; Hemoglobin A1c % 7.5 % (<6.0)
[2023-07-29 11:21] LABS: Prostate Specific Antigen Scr 1.07 ng/mL (<0.05-4.0)
[2023-07-29 11:38] LABS: Creatinine Urine 134.52 mg/dL; Microalbum/Creatinine Ratio Ur 3.7 ug/mg cr (<30)
[2023-07-29 11:45] LABS: Alanine Aminotransferase 27 U/L (0-40); Albumin Level 4.6 g/dL (3.5-5.0); Alkaline Phosphatase 57 U/L (39-117); Anion Gap 12 (12-20); Aspartate Amino Transferase 33 U/L (5-37); Bilirubin Total 0.5 mg/dL (0.0-1.0); Blood Urea Nitrogen 16 mg/dL (9-16); Calcium 9.7 mg/dL (8.4-10.2); Carbon Dioxide 29 mmol/L (22-29); Chloride 106 mmol/L (96-108); Cholesterol 300 mg/dL (<200); Estimated Glomerular Filt Rate > 60; Glucose Fasting 164 mg/dL (60-99); HDL Cholesterol 49 mg/dL (>40); LDL Cholesterol Calculated 174 mg/dL (<100); Potassium 4.9 mmol/L (3.3-5.1); Sodium 142 mmol/L (135-145); Total Protein 7.3 g/dL (6.5-8.0); Triglycerides 386 mg/dL (<150)
[2023-07-29 11:53] LABS: TSH reflex Free T4 1.33 uIU/mL (0.32-4.0)
== END 2023-07-29 08:34 | disposition home or self-care (01) ==
LOC: HO.HMGCLDS 08:33
PROVIDERS: PCP Nurse Practitioner Family; Visit Provider Nurse Practitioner Family
DX: Z12.5 Encounter for screening for malignant neoplasm of prostate (principal); F10.20 Alcohol dependence, uncomplicated; E11.9 Type 2 diabetes mellitus without complications
CPT/HCPCS: 36415; 80053; 80061; 81003; 82043; 82570; 83036; 84153; 84443; 85025

== ENCOUNTER 2023-08-11 08:06 | Outpatient (AMB) | payer OTHER, SELFPAY ==
--- NOTE | 2023-08-11 08:14 | A.OFFPC_ITS ---
Vital Signs 08/11/23 08:21 Weight 201 lb BP 130/80 Blood Pressure Location Lt brachial Position Sitting Pulse 71 Pulse Source Pulse Oximeter Pulse Oximetry (%) 98 Oxygen Delivery Method Room Air Intake Visit Reasons: Diabetes f/u Intake Note: Patient here for diabetes f/u. Allergies No Known Allergies [No Known Allergies*] Allergy (Verified 08/11/23 08:40) Medication List - Last Reconciled 08/11/23 by Miky Avitia RUST PROOFER- bupropion HCl XL (Wellbutrin XL) 150 mg PO QAM labetalol 300 mg PO BID metformin 500 mg PO BID pantoprazole 40 mg PO DAILY@0630 quetiapine 200 mg PO BEDTIME PRN rosuvastatin 20 mg PO BEDTIME Tobacco use date assessed: 08/11/23 Dental Screening Dental Screen Date: 08/11/23 HPI Diabetes f/u HPI Details Pt is a diabetic, on a statin. Last A1C was 7.5, microalbumin is up to date. Denies polyuria, polydipsia, does report neuropathy. Pt denies any signs and symptoms of hypoglycemia and does know how to correct it. Will increase metformin from 500mg bid to 1000mg bid. Eye exam is up to date. Will start low- dose losartan. Pt c/o severe fatigue. He also reports restless leg. Will order labs. Pt c/o ED. Will send cialis. Pt reports that he has not drank alcohol in approximately 2 months. [facility] Medical History Obstructive sleep apnea Essential and other specified forms of tremor Hypersomnolence Snoring Diabetes mellitus Alcoholic ketoacidosis Anxiety with depression Alcohol use disorder, severe, dependence Recurrent moderate major depressive disorder with anxiety Insomnia Alcohol withdrawal History of alcoholic hepatitis HTN (hypertension) Acute hepatitis Alcohol abuse with withdrawal Obesity (BMI 30-39.9) GERD without esophagitis Mixed hyperlipidemia Benign essential hypertension Surgical History History of esophagogastroduodenoscopy (EGD) H/O colonoscopy Family History Father Advanced cirrhosis of liver Alcoholic cirrhosis Substance use disorder Mother Dementia Maternal Grandfather Substance use disorder Sister Substance use disorder Maternal Grandfather Colon cancer Prostate cancer Social History Household Members: Significant Other Household Members Other:: Cousin Housing: House Do you presently have visiting nurse or other home services: No Alcohol intake: current Alcohol intake frequency: 3 or more drinks per day Alcohol type: wine and hard liquor Patient Tobacco Use Status: Former Tobacco user Tobacco use type: Cigarette Years Smoked: quit 10 years ago e-Cigarette/Vaping Use: Never Used Second Hand Smoke Exposure: No Substance Use Type: Crack/Cocaine Advance Directives Date on File: 10/23/21 service: No Current occupational status: 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 How often do you have a drink containing alcohol?: Never 3. How often do you have six or more drinks on one occasion?: Never Total Score: 0 Score Reviewed/Action Taken: No KAYLA-7 AMB Questionnaire KAYLA-7 Date KAYLA - 7 assessed: 08/02/22 Source: Developed by Drs. Colby Mariano, Cindy Baez, Jose Luis Gonzalez and colleagues, with an educational vinicio from [employer]. Review of Systems Const Reports as per HPI Physical exam (Primary Care) Vital Signs: Last Vital Signs Pulse 71 08/11/23 08:21 BP 130/80 08/11/23 08:21 Pulse Ox 98 08/11/23 08:21 Oxygen Delivery Method Room Air 08/11/23 08:21 Tobacco/Smoking Status: Tobacco use Status Tobacco use date assessed 08/11/23 08/11/23 08:24 Patient Tobacco Use Status Former Tobacco user 08/11/23 08:17 Tobacco use type Cigarette 08/11/23 08:17 e-Cigarette/Vaping Use Never Used 08/11/23 08:17 Thrive Assessment: Date of Thrive Assessment Date Thrive assessed 05/08/23 08/11/23 08:17 Const General: cooperative Orientation/consciousness: patient oriented x3 Resp Effort & Inspection: normal respiratory effort Auscultation: clear to auscultation bilaterally Cardio Rate: regular rate Rhythm: regular rhythm Heart sounds: S1 normal heart sound present and S2 normal heart sound present Neuro General: patient oriented x3 Extrem Other: bilat feet: + sensation with use of monofilament, feet intact Psych Appearance: grossly normal Mental Status: mental status grossly normal Speech and movement: Normal speech and movement present Affect: normal affect Attitude: cooperative Thought process: Normal thought process present Thought content: Normal thought content present Insight: Good insight present (Psych) Judgement: Good judgement present (Psych) Assessment and Plan Assessment & Plan (1) Fatigue: Code(s): R53.83 - Other fatigue (2) Restless leg: Code(s): G25.81 - Restless legs syndrome Plan The patient agreed to the use of a medical records technician for this encounter. Scribed for MARNIE Cross- by Griselda Mario medical records technician, on 08/11/2023 at 08:30 EST. Orders: Orders Vitamin B12 and Folate Today G25.81 - Restless legs syndrome, R53.83 - Other fatigue LUDY Reflex Titer and Pattern Today G25.81 - Restless legs syndrome, R53.83 - Other fatigue Tick-borne Disease Molecular Today G25.81 - Restless legs syndrome, R53.83 - Other fatigue Ferritin Today G25.81 - Restless legs syndrome, R53.83 - Other fatigue IRON PROFILE Today G25.81 - Restless legs syndrome, R53.83 - Other fatigue Complete Blood Count Auto Diff Today G25.81 - Restless legs syndrome, R53.83 - Other fatigue Vitamin B6 Today G25.81 - Restless legs syndrome, R53.83 - Other fatigue Medications: New tadalafil (Cialis) administer approximately 30min before sexual activity; do not use more than 1 dose per 24hrs 5 mg PO DAILY 10 days PRN 10 tabs 0RF sexual activity rosuvastatin 20 mg PO BEDTIME 90 tabs 0RF losartan 25 mg PO DAILY 90 tabs 0RF Changed From metformin 500 mg PO BID To metformin 1,000 mg PO BID 90 days 180 tabs 1RF Coding Level of Care Code Est Pt Level 3 (44381) Diagnoses Fatigue R53.83 Restless leg G25.81
[2023-08-11 08:21] VITALS: BP 130/80; PULSE 71; O2SAT 98
== END 2023-08-11 08:59 | disposition home or self-care (01) ==
PROVIDERS: PCP Nurse Practitioner Family; Visit Provider Nurse Practitioner Family
DX: R53.83 Other fatigue (principal); G25.81 Restless legs syndrome
CPT/HCPCS: 99213

== ENCOUNTER 2023-08-11 09:00 | Outpatient (REF) | payer OTHER, SELFPAY ==
[2023-08-11 10:17] LABS: MANUAL DIFF FLAG NO
[2023-08-11 10:32] LABS: Basophils Percent Auto 0.9 % (0-2); Eosinophils Absolute Auto 0.1 X10*3/uL (0.0-0.4); Eosinophils Percent Auto 3.3 % (0-4); Hemoglobin 14.1 g/dl (14.0-18.0); Imm Gran Abs Auto 0.01 X10*3/uL (0.00-0.03); Imm Gran Pct Auto 0.2 % (0.0-0.4); Lymphocytes Absolute Auto 1.2 X10*3/uL (1.2-4.9); Lymphocytes Percent Auto 27.1 % (20-40); Mean Corpuscular HGB Conc 34.4 g/dl (31.0-36.0); Mean Corpuscular Hemoglobin 30.3 pg (27.0-33.0); Mean Corpuscular Volume 88.2 fL (80.0-98.0); Mean Platelet Volume 9.4 fL (9.4-12.4); Monocytes Absolute Auto 0.3 X10*3/uL (0.1-1.2); Monocytes Percent Auto 6.6 % (2-11); Neutrophils Absolute Auto 2.6 x10*3/uL (2.0-8.3); Neutrophils Percent Auto 61.9 % (45-73); Platelet Count 186 X10*3/uL (160-400); Red Blood Count 4.65 X10*6/uL (4.60-5.80); Red Cell Distribution Width 12.5 % (11.0-16.0); White Blood Count 4.3 X10*3/uL (4.8-10.8)
[2023-08-11 11:35] LABS: Ferritin 27 ng/mL (20-250); Iron 62 mcg/dL (45-160); Percent Iron Saturation 18 % (15-50); Total Iron Binding Capacity 354 mcg/dL (228-428); Unsaturated Iron Binding 292 ug/dL
[2023-08-11 11:45] LABS: Folate 18.4 ng/mL (> or = 4.0); Vitamin B12 648 pg/mL (200-900)
[2023-08-12 17:04] LABS: A. Phagocytphilium DNA,RT-PCR NOT DETECTED (NOT DETECTED); Babesia Microti DNA, RT-PCR NOT DETECTED (NOT DETECTED); Borrelia Miyamotoi,DNA RT-PCR NOT DETECTED (NOT DETECTED); E.Chaffeensis DNA RT-PCR NOT DETECTED (NOT DETECTED); Lyme(Borrelia ssp)DNA RT-PCR NOT DETECTED (NOT DETECTED)
[2023-08-14 10:28] LABS: Anti Nuclear Antibody Screen NEGATIVE (NEGATIVE)
[2023-08-18 07:03] LABS: Vitamin B6 93.6 ng/mL (2.1-21.7)
== END 2023-08-11 09:01 | disposition home or self-care (01) ==
LOC: HO.HMGCLDS 09:00
PROVIDERS: PCP Nurse Practitioner Family; Visit Provider Nurse Practitioner Family
DX: G25.81 Restless legs syndrome (principal); R53.83 Other fatigue
CPT/HCPCS: 36415; 82607; 82728; 82746; 83540; 84207; 85025; 86038; 87468; 87469; 87478; 87484; 87798

== ENCOUNTER 2023-09-14 06:58 | Outpatient (AMB) | payer OTHER, SELFPAY ==
--- NOTE | 2023-09-14 07:24 | A.OFFPC_ITS ---
Intake Visit Reasons: Review fatigue Android [phone] Allergies No Known Allergies [No Known Allergies*] Allergy (Verified 08/11/23 08:40) Medication List - Last Reconciled 09/14/23 by ANG Gaytan bupropion HCl XL (Wellbutrin XL) 150 mg PO QAM labetalol 300 mg PO BID losartan 25 mg PO DAILY metformin 1,000 mg PO BID 90 days pantoprazole 40 mg PO DAILY@0630 quetiapine 200 mg PO BEDTIME PRN ropinirole 1 mg PO BEDTIME 30 days rosuvastatin 20 mg PO BEDTIME tadalafil (Cialis) 5 mg PO DAILY PRN 10 days Tobacco use date assessed: 08/11/23 Dental Screening Dental Screen Date: 08/11/23 HPI Review fatigue Android [phone] HPI Details Fatigue: approx 2.5 months sober now. Pt reports that he only gets 4-5 hours of sleep most nights. He does have a hx of obstructive sleep apnea. Pt was supposed to wear a CPAP but it was uncomfortable. He has an appointment with sleep medicine in March. Pt also has a hx of restless leg. He was started on ropinirole which was recently increased to 0.5mg. Pt reports that this is helping somewhat. Will increase to 1mg. Pt was taking a supplement called nugenix which he believes was keeping him up. Will have pt stop this. Denies fever, chills, and dizziness. Will cont to monitor labs and will follow up with pt [facility] Medical History Obstructive sleep apnea Essential and other specified forms of tremor Hypersomnolence Snoring Diabetes mellitus Alcoholic ketoacidosis Anxiety with depression Alcohol use disorder, severe, dependence Recurrent moderate major depressive disorder with anxiety Insomnia Alcohol withdrawal History of alcoholic hepatitis HTN (hypertension) Acute hepatitis Alcohol abuse with withdrawal Obesity (BMI 30-39.9) GERD without esophagitis Mixed hyperlipidemia Benign essential hypertension Surgical History History of esophagogastroduodenoscopy (EGD) H/O colonoscopy Family History Father Advanced cirrhosis of liver Alcoholic cirrhosis Substance use disorder Mother Dementia Maternal Grandfather Substance use disorder Sister Substance use disorder Maternal Grandfather Colon cancer Prostate cancer Social History Household Members: Significant Other Household Members Other:: Cousin Housing: House Do you presently have visiting nurse or other home services: No Alcohol intake: current Alcohol intake frequency: 3 or more drinks per day Alcohol type: wine and hard liquor Patient Tobacco Use Status: Former Tobacco user Tobacco use type: Cigarette Years Smoked: quit 10 years ago e-Cigarette/Vaping Use: Never Used Second Hand Smoke Exposure: No Substance Use Type: Crack/Cocaine Advance Directives Date on File: 10/23/21 service: No Current occupational status: 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 Colby Mariano, Cindy Baez, Jose Luis Gonzalez and colleagues, with an educational vinicio from [employer]. Review of Systems Const Reports as per HPI Physical exam (Primary Care) Tobacco/Smoking Status: Tobacco use Status Tobacco use date assessed 08/11/23 09/14/23 07:29 Patient Tobacco Use Status Former Tobacco user 09/14/23 07:29 Tobacco use type Cigarette 09/14/23 07:29 e-Cigarette/Vaping Use Never Used 09/14/23 07:29 Thrive Assessment: Date of Thrive Assessment Date Thrive assessed 05/08/23 09/14/23 07:29 Const General: cooperative Orientation/consciousness: patient oriented x3 Neuro General: patient oriented x3 Psych Appearance: grossly normal Mental Status: mental status grossly normal Speech and movement: Clear speech present Affect: normal affect Attitude: cooperative Thought process: Normal thought process present Thought content: Normal thought content present Insight: Good insight present (Psych) Judgement: Good judgement present (Psych) Telehealth Telehealth Telehealth Platform: [facility] Location of provider rendering services: practice address Location of patient: address on file Patient Identification confirmed using: Name, : Yes Telehealth method: video Patient verbally consented to treatment: Yes Patient verbally consented to billing insurance company: Yes Patient informed of any privacy concerns related to visit: Yes Minutes spent on Phone/Video with Pt.: 10 Assessment and Plan Assessment & Plan (1) Fatigue: Code(s): R53.83 - Other fatigue Plan: Labs ordered, increasing ropinirole, recommended stopping nugenix, referred to sleep medicine Plan The patient agreed to the use of a medical director occupational health for this encounter. Scribed for MARNIE Cross-MATTY by Griselda Mario medical director occupational health, on 09/14/2023 at 07:25 EST. Orders: Orders Comprehensive [place]. Panel Fast Today R53.83 - Other fatigue Testosterone, Free/Total Today R53.83 - Other fatigue Medications: Changed From ropinirole administer 1-3 hours before bedtime, for restless legs, cannot drink alcohol while on med 0.5 mg PO BEDTIME 30 tabs 1RF To ropinirole administer 1-3 hours before bedtime, for restless legs, cannot drink alcohol while on med 1 mg PO BEDTIME 30 days 30 tabs 1RF Coding Level of Care Code Tele Est Pt Level 3 (78688) Diagnoses Fatigue R53.83
== END 2023-09-14 12:11 | disposition home or self-care (01) ==
LOC: HO.HMGC 06:58
PROVIDERS: PCP Nurse Practitioner Family; Visit Provider Nurse Practitioner Family
DX: R53.83 Other fatigue (principal)
CPT/HCPCS: 99213

== ENCOUNTER 2023-09-21 19:26 | Emergency (ER) | payer OTHER, SELFPAY ==
[2023-09-21 20:35] VITALS: BP 143/93; PULSE 109; RESP 16; TEMP 36.6; O2SAT 98; BMI 30.7
--- NOTE | 2023-09-21 20:38 | ED_ITS ---
HPI - Alcohol General Chief Complaint: ETOH/Substance Use Stated Complaint: seeking detox Time Seen by Provider: 09/21/23 20:54 Source: patient Mode of arrival: ambulatory Limitations: no limitations History of Present Illness ED Provider: lucero NAPIER narrative: Patient alcoholic was sober for about 10 years and started drinking last year and been sober since 10/01 started drinking wine 3 days ago without eating or drinking anything else also complaining of epigastric pain last drink was about 2 hours ago patient feels the slight jittery asking for medication for withdrawal. No history of seizures feel nauseated no vomiting CIWA score was 15 on arrival Related Data Home Medications ?Medication ?Instructions ?Recorded ?Confirmed quetiapine 100 mg tablet 200 mg PO BEDTIME PRN anxiety 03/08/23 09/14/23 bupropion HCl 150 mg 24 hr tablet, 150 mg PO QAM 08/11/23 09/14/23 extended release (Wellbutrin XL) Previous Rx's ?Medication ?Instructions ?Recorded labetalol 300 mg tablet 300 mg PO BID #180 tabs 06/12/23 losartan 25 mg tablet 25 mg PO DAILY #90 tabs 08/11/23 metformin 1,000 mg tablet 1,000 mg PO BID 90 days #180 tabs 08/11/23 rosuvastatin 20 mg tablet 20 mg PO BEDTIME #90 tabs 08/11/23 tadalafil 5 mg tablet (Cialis) 5 mg PO DAILY PRN sexual activity 08/11/23 10 days #10 tabs pantoprazole 40 mg tablet,delayed 40 mg PO DAILY@0630 #90 tabs 08/26/23 release ropinirole 1 mg tablet 1 mg PO BEDTIME 30 days #30 tabs 09/14/23 lorazepam 2 mg tablet (Ativan) 2 mg PO TID PRN alcohol withdrawal 09/22/23 #6 tabs Allergies Allergy/AdvReac Type Severity Reaction Status Date / Time No Known Allergies Allergy Verified 09/21/23 20:36 [No Known Allergies*] Review of Systems 2 Review of Systems: Yes all other systems are reviewed and are negative PMFSH Past Medical History Medical History Obstructive sleep apnea Essential and other specified forms of tremor Hypersomnolence Snoring Diabetes mellitus Alcoholic ketoacidosis Anxiety with depression Alcohol use disorder, severe, dependence Recurrent moderate major depressive disorder with anxiety Insomnia Alcohol withdrawal History of alcoholic hepatitis HTN (hypertension) Acute hepatitis Alcohol abuse with withdrawal Obesity (BMI 30-39.9) GERD without esophagitis Mixed hyperlipidemia Benign essential hypertension Surgical History History of esophagogastroduodenoscopy (EGD) H/O colonoscopy Family History Family History Father Advanced cirrhosis of liver Alcoholic cirrhosis Substance use disorder Mother Dementia Maternal Grandfather Substance use disorder Sister Substance use disorder Maternal Grandfather Colon cancer Prostate cancer Social History Social History Household Members: Significant Other Household Members Other:: Cousin Housing: House Do you presently have visiting nurse or other home services: No Alcohol intake: current Alcohol intake frequency: 3 or more drinks per day Alcohol type: beer, wine and hard liquor Patient Tobacco Use Status: Former Tobacco user Tobacco use type: Cigarette Years Smoked: quit 10 years ago Smoked in Last 30 Days: No e-Cigarette/Vaping Use: Never Used Second Hand Smoke Exposure: No Use of substances other than those prescribed or required for medical reasons: No Substance Use Type: Crack/Cocaine Advance Directives: Yes Advance Directives on File: Yes Advance Directives Date on File: 10/23/21 Do you have a plan to hurt others: No Plan service: No Current occupational status: 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 Physical Exam ED Vital Signs: Vital Signs - 24 hr 09/21/23 20:35 09/21/23 22:59 09/22/23 01:47 Temperature 97.9 F 98.2 F 98.0 F Pulse Rate 109 H 95 101 H Respiratory Rate 16 16 15 Blood Pressure 143/93 H 145/88 H 134/93 H Pulse Oximetry 98 96 93 Oxygen Delivery Method Room Air Room Air Room Air 09/22/23 04:24 09/22/23 06:10 09/22/23 07:24 Temperature 98.4 F 97.2 F 98.5 F Pulse Rate 97 94 85 Respiratory Rate 16 19 21 H Blood Pressure 142/94 H 148/91 H 149/92 H Pulse Oximetry 95 94 92 Oxygen Delivery Method Room Air Room Air Room Air 09/22/23 08:11 Temperature 97.8 F Pulse Rate 94 Respiratory Rate 17 Blood Pressure 149/92 H Pulse Oximetry 99 Oxygen Delivery Method Room Air BMI result Body Mass Index 30.7 Appearance: Alert. Oriented X3. No acute distress. Anxious Eyes: PERRLA, No Nystagmus ENT: Pharynx normal. Oral Mucosa moist Neck: Normal inspection. Neck supple. CVS: Normal heart rate and rhythm. Pulses normal. Respiratory: No respiratory distress. Equal air entry bilateral, no wheezing/rales/rhonchi Abdomen: Soft and tender epigastric area no rebound tenderness or guarding Bowel sounds are present, no mass palpable, no CVA tenderness Skin: Skin warm and dry. Normal skin color. Normal skin turgor. Extremities: No lower extremity edema. No calf tenderness Neuro: Oriented X 3. No motor deficit. No sensory deficit.No cerebellar signs , cranial nerves II-XII intact Course Course Course Narrative: This is a rapid medical exam performed by Silvia Rosas NP: Additional HPI, ROS, PE not included below will be deferred to primary provider. Patient is a 58-year-old male presenting to the ED requesting assistance with detox from alcohol. Drinking more than a box of wine daily, last drank 2 hours ago. Denies using other substances. Denies history of withdrawal seizures. Complaining of heartburn, nausea. Very restless in triage. Plan: EKG, labs, urine drug screen, patient freedom directly into main ED Reevaluation(s) Reevaluation #1: Patient awake, alert, oriented. He states for the last 3 days he went on alcohol Parnell. He was sober for 6 months prior to this. He is declining need for detox today. He states he knows exactly what he needs to do he just needs to do it. He is motivated to do it on his own. He is declining need for resources today. His most recent CIWA score was 4. He is feeling well and would like to go home. At this time he is stable for discharge home. Time: 08:13 Medical Decision Making Medical Decision Making MDM Narrative: Patient with alcohol withdrawal CIWA scale of 15 patient usually gets better using Librium or Ativan will keep in the ED for p.o. Ativan for alcohol withdrawal Differential Diagnosis Differential Diagnoses: The differential diagnosis associated with the presentation includes Lab Data MDM Lab Attestation statement: I reviewed the patient's lab results. 09/21/23 21:04 09/21/23 21:04 Labs: Lab Results 09/21/23 Range/Units 21:04 WBC 11.7 H (4.8-10.8) X10*3/uL RBC 4.95 (4.60-5.80) X10*6/uL Hgb 15.2 (14.0-18.0) g/dl Hct 40.8 L (42.0-52.0) % MCV 82.4 (80.0-98.0) fL MCH 30.7 (27.0-33.0) pg MCHC 37.3 H (31.0-36.0) g/dl RDW 12.8 (11.0-16.0) % Plt Count 235 D (160-400) X10*3/uL MPV 8.8 L (9.4-12.4) fL Immature Gran % (Auto) 0.6 H (0.0-0.4) % Neut % (Auto) 67.9 (45-73) % Lymph % (Auto) 22.9 (20-40) % Benton % (Auto) 7.6 (2-11) % Eos % (Auto) 0.5 (0-4) % Baso % (Auto) 0.5 (0-2) % Lymph # (Auto) 2.7 (1.2-4.9) X10*3/uL Benton # (Auto) 0.9 (0.1-1.2) X10*3/uL Eos # (Auto) 0.1 (0.0-0.4) X10*3/uL Baso # (Auto) 0.1 (0.0-0.2) X10*3/uL Abs Immat Gran (auto) 0.07 H (0.00-0.03) X10*3/uL Absolute Neuts (auto) 8.0 (2.0-8.3) x10*3/uL Absolute Nucleated RBC 0.000 (0.0-0.012) X10*3/uL Nucleated RBC % (auto) 0.0 (0.0-0.2) /100WBC PT 12.0 (11.1-13.3) SEC INR 1.0 (0.9-1.1) Sodium 140 (135-145) mmol/L Potassium 3.6 D (3.3-5.1) mmol/L Chloride 93 L (96-108) mmol/L Carbon Dioxide 23 (22-29) mmol/L Anion Gap 28 H (12-20) BUN 15 (9-16) mg/dL Creatinine 0.72 (0.5-1.4) mg/dL Estim Creat Clear Calc 121.8 Estimated GFR > 60 Random Glucose 161 H (60-115) mg/dL Calcium 9.8 (8.4-10.2) mg/dL Magnesium 2.1 (1.6-2.6) mg/dL Total Bilirubin 0.6 (0.0-1.0) mg/dL AST 32 (5-37) U/L ALT 39 (0-40) U/L Alkaline Phosphatase 58 (39-117) U/L Total Protein 7.9 (6.5-8.0) g/dL Albumin 5.0 (3.5-5.0) g/dL Lipase 19 (8-78) U/L Ethyl Alcohol 130 mg/dL Medications Administered Generic Name Dose Route Start Last Admin Trade Name Freq PRN Reason Stop Dose Admin Lorazepam 2 mg 09/22/23 01:22 09/22/23 04:41 Lorazepam 1 Mg Tablet PO 2 mg RQ4H WHILE AWAKE PRN Administration Alcohol Withdrawal Discontinued Medications Generic Name Dose Route Start Last Admin Trade Name Freq PRN Reason Stop Dose Admin Acetaminophen 650 mg 09/22/23 04:22 09/22/23 04:38 Acetaminophen 325 Mg Tablet PO 09/22/23 04:23 650 mg ONCE ONE Administration Sodium Chloride 1,000 mls @ 999 mls/hr 09/21/23 21:42 09/21/23 22:55 Ns IV 09/21/23 22:42 Infused .Q1H1M ONE Infusion Sodium Chloride 1,000 mls @ 999 mls/hr 09/21/23 23:53 09/22/23 01:20 Ns IV 09/22/23 00:53 Infused .Q1H1M ONE Infusion Lorazepam 2 mg 09/21/23 21:42 09/21/23 21:49 Lorazepam 1 Mg Tablet PO 09/21/23 21:43 2 mg ONCE ONE Administration Lorazepam 2 mg 09/21/23 23:53 09/22/23 00:08 Lorazepam 1 Mg Tablet PO 09/21/23 23:54 2 mg ONCE ONE Administration Morphine Sulfate 4 mg 09/21/23 23:53 09/22/23 00:12 Morphine Sulfate 4 Mg/Ml Cartridge IVPUSH 09/21/23 23:54 4 mg ONCE ONE Administration Protocol Ondansetron HCl 4 mg 09/21/23 21:48 09/21/23 21:55 Ondansetron Hcl 4 Mg/2 Ml Vial IVPUSH 09/21/23 21:49 4 mg ONCE ONE Administration Ondansetron HCl 4 mg 09/21/23 23:53 09/22/23 00:10 Ondansetron Hcl 4 Mg/2 Ml Vial IVPUSH 09/21/23 23:54 4 mg ONCE ONE Administration Pantoprazole Sodium 40 mg 09/21/23 21:48 09/21/23 21:55 Pantoprazole Sodium 40 Mg/10 Ml Vial IVPUSH 09/21/23 21:49 40 mg ONCE ONE Administration Discharge Plan Discharge Clinical Impression: Alcohol use disorder Patient Disposition: Home, Self-Care Instructions: Abuse of Alcohol (ED), Alcohol Withdrawal (ED) Additional Instructions: Stop drinking alcohol Follow detox Ativan for alcohol withdrawal Prescriptions: New lorazepam [Ativan] 2 mg tablet 2 mg PO TID PRN (Reason: alcohol withdrawal) Qty: 6 0RF No Action labetalol 300 mg tablet 300 mg PO BID Qty: 180 1RF pantoprazole 40 mg tablet,delayed release (DR/EC) 40 mg PO DAILY@0630 Qty: 90 0RF bupropion HCl [Wellbutrin XL] 150 mg tablet extended release 24 hr 150 mg PO QAM metformin 1,000 mg tablet 1,000 mg PO BID 90 Days Qty: 180 1RF tadalafil [Cialis] 5 mg tablet 5 mg PO DAILY PRN (Reason: sexual activity) 10 Days Qty: 10 0RF Rx Instructions: administer approximately 30min before sexual activity; do not use more than 1 dose per 24hrs rosuvastatin 20 mg tablet 20 mg PO BEDTIME Qty: 90 0RF losartan 25 mg tablet 25 mg PO DAILY Qty: 90 0RF ropinirole 1 mg tablet 1 mg PO BEDTIME 30 Days Qty: 30 1RF Rx Instructions: administer 1-3 hours before bedtime, for restless legs, cannot drink alcohol while on med quetiapine 100 mg tablet 200 mg PO BEDTIME PRN (Reason: anxiety) Print Language: Swedish
--- NOTE | 2023-09-21 20:40 | ECG_ITS ---
Test Reason : ETOH Blood Pressure : / mmHG Vent. Rate : 099 BPM Atrial Rate : 099 BPM P-R Int : 160 ms QRS Dur : 090 ms QT Int : 358 ms P-R-T Axes : 036 000 034 degrees QTc Int : 459 ms Normal sinus rhythm Cannot rule out Anterior infarct , age undetermined - could be related to lead placement Abnormal ECG When compared with ECG of 08-MAY-2023 14:00, No significant change was found Referred By: Pao Rosas Electronically Signed By:BIANCA SAENZ
[2023-09-21 21:08] LABS: MANUAL DIFF FLAG NO
[2023-09-21 21:24] LABS: Alanine Aminotransferase 39 U/L (0-40); Alkaline Phosphatase 58 U/L (39-117); Anion Gap 28 (12-20); Aspartate Amino Transferase 32 U/L (5-37); Bilirubin Total 0.6 mg/dL (0.0-1.0); Blood Urea Nitrogen 15 mg/dL (9-16); Calcium 9.8 mg/dL (8.4-10.2); Carbon Dioxide 23 mmol/L (22-29); Chloride 93 mmol/L (96-108); Creatinine Clr Calc Pharmacy 121.8; Estimated Glomerular Filt Rate > 60; Ethanol 130 mg/dL; Glucose Random 161 mg/dL (60-115); Potassium 3.6 mmol/L (3.3-5.1); Sodium 140 mmol/L (135-145); Total Protein 7.9 g/dL (6.5-8.0)
--- NOTE | 2023-09-21 21:38 | PC.NURSE ---
Provider Joseph advised pt scored 15 on ciwa done in triage, line placed and labs drawn., Plan of care ongoing.
[2023-09-21] MEDS: LORazepam 1 MG TABLET 2 MG PO (21:49)
[2023-09-21] MEDS: 0.9 % Sodium Chloride 1,000 ML 999 ML IV (21:51)
[2023-09-21] MEDS: ondansetron HCL 4 MG/2 ML VIAL IVPUSH (21:55)
[2023-09-21] MEDS: Pantoprazole Sodium 40 MG/10 ML VIAL IVPUSH (21:55)
[2023-09-21 21:57] LABS: Basophils Absolute Auto 0.1 X10*3/uL (0.0-0.2); Basophils Percent Auto 0.5 % (0-2); Eosinophils Absolute Auto 0.1 X10*3/uL (0.0-0.4); Eosinophils Percent Auto 0.5 % (0-4); Hematocrit 40.8 % (42.0-52.0); Hemoglobin 15.2 g/dl (14.0-18.0); Imm Gran Abs Auto 0.07 X10*3/uL (0.00-0.03); Imm Gran Pct Auto 0.6 % (0.0-0.4); Lymphocytes Absolute Auto 2.7 X10*3/uL (1.2-4.9); Lymphocytes Percent Auto 22.9 % (20-40); Mean Corpuscular HGB Conc 37.3 g/dl (31.0-36.0); Mean Corpuscular Hemoglobin 30.7 pg (27.0-33.0); Mean Corpuscular Volume 82.4 fL (80.0-98.0); Mean Platelet Volume 8.8 fL (9.4-12.4); Monocytes Absolute Auto 0.9 X10*3/uL (0.1-1.2); Monocytes Percent Auto 7.6 % (2-11); Neutrophils Percent Auto 67.9 % (45-73); Platelet Count 235 X10*3/uL (160-400); Red Blood Count 4.95 X10*6/uL (4.60-5.80); Red Cell Distribution Width 12.8 % (11.0-16.0); White Blood Count 11.7 X10*3/uL (4.8-10.8)
--- NOTE | 2023-09-21 21:58 | PC.NURSE ---
Pt medicated per jun. Family at bedside. Plan of care ongoing.
[2023-09-21 22:29] LABS: Lipase 19 U/L (8-78)
[2023-09-21 22:59] VITALS: BP 145/88; PULSE 95; RESP 16; TEMP 36.8; O2SAT 96
--- NOTE | 2023-09-21 23:03 | PC.NURSE ---
Provider notified and aware pt reporting heart burn. Plan of care ongoing.
[2023-09-21 23:21] LABS: Magnesium 2.1 mg/dL (1.6-2.6)
[2023-09-22] MEDS: LORazepam 1 MG TABLET 2 MG PO ×2 (00:08→04:41)
[2023-09-22] MEDS: ondansetron HCL 4 MG/2 ML VIAL IVPUSH (00:10)
[2023-09-22] MEDS: Morphine Sulfate 4 MG/ML CARTRIDGE IVPUSH (00:12)
[2023-09-22] MEDS: 0.9 % Sodium Chloride 1,000 ML 999 ML IV (00:14)
--- NOTE | 2023-09-22 00:16 | PC.NURSE ---
Pt medicated per jun. Plan of care ongoing.
[2023-09-22 01:47] VITALS: BP 134/93; PULSE 101; RESP 15; TEMP 36.7; O2SAT 93
[2023-09-22 04:24] VITALS: BP 142/94; PULSE 97; RESP 16; TEMP 36.9; O2SAT 95
[2023-09-22] MEDS: Acetaminophen 325 MG TABLET 650 MG PO (04:38)
--- NOTE | 2023-09-22 04:42 | PC.NURSE ---
Pt ca&Ox4, no signs of distress. Pt medicated per mar. Pt requested and given ativan. Plan of care ongoing.
[2023-09-22 06:10] VITALS: BP 148/91; PULSE 94; RESP 19; TEMP 36.2; O2SAT 94
[2023-09-22 07:24] VITALS: BP 149/92; PULSE 85; RESP 21; TEMP 36.9; O2SAT 92
[2023-09-22 08:11] VITALS: BP 149/92; PULSE 94; RESP 17; TEMP 36.6; O2SAT 99
[2023-09-22 08:57] VITALS: BP 149/92; PULSE 94; RESP 17; TEMP 36.6; O2SAT 99
== END 2023-09-22 09:00 | disposition home or self-care (01) ==
PROVIDERS: Registered Nurse Emergency; Emergency Provider Internal Medicine; PCP Nurse Practitioner Family
DX: F10.20 Alcohol dependence, uncomplicated (principal); R10.13 Epigastric pain; I10 Essential (primary) hypertension; E11.9 Type 2 diabetes mellitus without complications; E78.5 Hyperlipidemia, unspecified; Z79.899 Other long term (current) drug therapy
CPT/HCPCS: 36415; 80053; 80307; 83690; 83735; 85025; 85610; 93005; 96361; 96374; 96375; 96376; 99285; C9113; J2270; J2405

== ENCOUNTER → 2023-09-21 20:40 | Outpatient (BNV) | payer OTHER, SELFPAY | PROVIDERS: Emergency Provider Internal Medicine; PCP Nurse Practitioner Family; Visit Provider Internal Medicine | DX: R94.31 Abnormal electrocardiogram [ECG] [EKG] (principal) | CPT/HCPCS: 93010 ==

== ENCOUNTER 2023-10-17 12:58 | Outpatient (REF) | payer OTHER, SELFPAY ==
[2023-10-17 15:58] LABS: MANUAL DIFF FLAG NO
[2023-10-17 15:59] LABS: Basophils Absolute Auto 0.1 X10*3/uL (0.0-0.2); Basophils Percent Auto 0.8 % (0-2); Eosinophils Absolute Auto 0.2 X10*3/uL (0.0-0.4); Eosinophils Percent Auto 3.5 % (0-4); Hematocrit 41.8 % (42.0-52.0); Hemoglobin 14.8 g/dl (14.0-18.0); Imm Gran Abs Auto 0.02 X10*3/uL (0.00-0.03); Imm Gran Pct Auto 0.3 % (0.0-0.4); Lymphocytes Absolute Auto 1.8 X10*3/uL (1.2-4.9); Lymphocytes Percent Auto 27.9 % (20-40); Mean Corpuscular HGB Conc 35.4 g/dl (31.0-36.0); Mean Corpuscular Hemoglobin 30.7 pg (27.0-33.0); Mean Corpuscular Volume 86.7 fL (80.0-98.0); Mean Platelet Volume 9.3 fL (9.4-12.4); Monocytes Absolute Auto 0.4 X10*3/uL (0.1-1.2); Monocytes Percent Auto 6.8 % (2-11); Neutrophils Absolute Auto 3.9 x10*3/uL (2.0-8.3); Neutrophils Percent Auto 60.7 % (45-73); Platelet Count 208 X10*3/uL (160-400); Red Blood Count 4.82 X10*6/uL (4.60-5.80); Red Cell Distribution Width 12.8 % (11.0-16.0); White Blood Count 6.3 X10*3/uL (4.8-10.8)
[2023-10-17 16:38] LABS: Alanine Aminotransferase 31 U/L (0-40); Albumin Level 4.7 g/dL (3.5-5.0); Alkaline Phosphatase 62 U/L (39-117); Anion Gap 13 (12-20); Aspartate Amino Transferase 21 U/L (5-37); Bilirubin Total 0.7 mg/dL (0.0-1.0); Blood Urea Nitrogen 19 mg/dL (9-16); Calcium 10.1 mg/dL (8.4-10.2); Carbon Dioxide 25 mmol/L (22-29); Chloride 104 mmol/L (96-108); Cholesterol 230 mg/dL (<200); Estimated Glomerular Filt Rate > 60; Glucose Fasting 153 mg/dL (60-99); HDL Cholesterol 51 mg/dL (>40); Iron 151 mcg/dL (45-160); Percent Iron Saturation 41 % (15-50); Potassium 4.3 mmol/L (3.3-5.1); Sodium 138 mmol/L (135-145); Total Iron Binding Capacity 364 mcg/dL (228-428); Total Protein 7.5 g/dL (6.5-8.0); Triglycerides 580 mg/dL (<150); Unsaturated Iron Binding 213 ug/dL
[2023-10-17 16:55] LABS: Ferritin 56 ng/mL (20-250); TSH reflex Free T4 1.21 uIU/mL (0.32-4.0)
[2023-10-18 20:03] LABS: Anti DNA DS Antibody <1 IU/mL
[2023-10-21 19:52] LABS: Testosterone, Free 83.5 pg/mL (35.0-155.0); Testosterone, Total 437 ng/dL (250-1100)
[2023-10-24 14:24] LABS: DNAds, Crithidia Antibody Negative (Negative)
== END 2023-10-17 12:59 | disposition home or self-care (01) ==
LOC: HO.HMGCLDS 12:58
PROVIDERS: PCP Nurse Practitioner Family; Visit Provider Nurse Practitioner Family
DX: R53.83 Other fatigue (principal); E78.5 Hyperlipidemia, unspecified
CPT/HCPCS: 36415; 80053; 80061; 82728; 83540; 84402; 84403; 84443; 85025; 86225; 86255

== ENCOUNTER 2023-11-13 20:07 | Inpatient (IN) | payer OTHER, SELFPAY ==
--- NOTE | ~2023-11-13 | XR_ITS ---
EXAMINATION: XR ABDOMEN KUB CLINICAL INDICATION: MRI screening COMPARISON: None available. TECHNIQUE: AP view of the abdomen. FINDINGS: The bowel gas pattern is normal with no evidence of ileus or obstruction. No unusual soft tissue calcifications are noted. 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 Degenerative changes are present in the spine. XR/XR KUB IMPRESSION: No contraindication to MRI is seen. A single surgical clip is present in each hemiscrotum.
--- NOTE | ~2023-11-13 | XR_ITS ---
EXAMINATION: XR CHEST CLINICAL INFORMATION: Altered mental status COMPARISON: 08/19/2022 TECHNIQUE: 2 views of the chest were obtained. FINDINGS: There is slight elevation of the right hemidiaphragm. No focal consolidation is seen bilaterally. No evidence of pneumothorax, pleural effusion, or overt pulmonary edema. The cardiomediastinal contour is unremarkable. Degenerative changes are noted in the spine. XR/XR chest 2V IMPRESSION: No acute cardiopulmonary findings.
--- NOTE | ~2023-11-13 | CT_ITS ---
EXAMINATION: CT ANGIOGRAM NECK AND HEAD CLINICAL INFORMATION: Reason for Exam headache, AMS, cocaine use COMPARISON: 11/13/[address] TECHNIQUE: Test bolus sequences followed by intravenous administration 70 mL of Omnipaque 350. Helical imaging was performed in the axial plane from the thoracic inlet to the skull vertex. Delayed postcontrast imaging of the head was also performed. The data was processed at the electromechanical technologist's workstation for generation of MIP sequences. Angled MIPs and volume rendered reformatted images were also generated at an offline 3D workstation. Stenoses are assessed in accordance with NASCET criteria unless otherwise indicated. DOSE LOWERING TECHNIQUES: This CT examination was performed using dose optimization techniques as appropriate, variously including the following: - Automated exposure control - Adjustment of mA and/or kV according to patient size (this includes techniques or standardized protocols for targeted exams were dose is matched to indication/reason for exam; i.e. extremities or head) - Use of iterative reconstruction technique DLP: 1488 mGy-cm FINDINGS: Neck CTA: There is a classic 3 vessel branching pattern of the aortic arch. Normal appearance of the visualized aortic arch and proximal branches. No evidence of stenosis at the branch origins. Both vertebral arteries are widely patent throughout their extracranial cervical course. There is atherosclerotic plaque and calcification at the bifurcation of the right common carotid artery resulting in approximately 70% luminal narrowing at the origin of the internal carotid artery. There is trace calcification at the left common carotid artery bifurcation without significant luminal narrowing. Remaining of the internal carotid arteries are patent bilaterally. Brain CTA: Normal appearance of the intradural vertebral and arteries. Normal appearance of the basilar and superior cerebellar arteries. Normally opacified posterior cerebral arteries bilaterally. Normal appearance of the intradural internal carotid arteries without focal stenosis. Normal appearance of the anterior cerebral and middle cerebral arteries without focal occlusion or stenosis. Normal anterior communicating artery. Normal arborization of the middle cerebral arteries. CT Head: No intracranial mass, hemorrhage, extra-axial collection, or midline shift. Subtle hypoattenuation within the bilateral occipital lobes is more prominent on the right than the left, as noted previously. The rivera-white matter differentiation is otherwise preserved. No pathologic intra-axial enhancement or regional oligemia. No hydrocephalus. The mastoid air cells and paranasal sinuses remain well aerated. CT Neck: The thyroid gland and remaining cervical soft tissues are normal in appearance. No acute cervical spine abnormalities demonstrated. Mild endplate osteophytes in the spine. There is degenerative change at the atlantodens articulation. Upper Chest: No abnormalities in the visualized lung apices or upper mediastinum. CT/CT angio head neck IMPRESSION: 1. Atherosclerotic plaque and calcification at the right common carotid artery bifurcation resulting in approximately 70% luminal narrowing at the origin of the right internal carotid artery. 2. No large vessel occlusion or significant stenosis in the intracranial circulation. 3. Subtle hypoattenuation within the bilateral occipital lobes, more prominent on the right. While this could be artifactual in nature, infarct cannot be excluded, and as previously noted further evaluation with MRI is recommended.
--- NOTE | ~2023-11-13 | CT_ITS ---
EXAMINATION: CT HEAD WITHOUT CONTRAST CLINICAL INFORMATION: Change in mental status. COMPARISON: CT head dated 09/11/2022. TECHNIQUE: Contiguous axial imaging was performed from the skull base to vertex without intravenous administration of contrast. This CT examination was performed using dose optimization techniques as appropriate, variously including the following: *Automated exposure control *Adjustment of mA and/or kV according to patient size (this includes techniques or standardized protocols for targeted exams where dose is matched to indication/reason for exam; i.e. extremities or head) *Use of iterative reconstruction technique DLP: 766 mGy-cm FINDINGS: There is no acute intracranial hemorrhage. There is apparent loss of rivera-white matter differentiation within the occipital poles bilaterally. Subacute infarction is not excluded. Clinical correlation and MRI correlation is recommended. There is no midline shift or mass effect. No extra-axial fluid collection. The ventricles are normal in size. The orbits are symmetric and within normal limits. Paranasal sinuses are clear. Mastoid air cells are well aerated. CT/CT head/brain wo IV con IMPRESSION: There is apparent loss of rivera-white matter differentiation within the occipital poles bilaterally. Subacute infarction is not excluded. Clinical correlation and MRI correlation is recommended. This critical result was discussed with Dr.Kristine Bal at 10:51 on 11/13/2023 and it was ascertained that the content and urgency of the report was understood at the time of direct communication.
--- NOTE | ~2023-11-13 | MR_ITS ---
EXAMINATION: MR BRAIN WITHOUT CONTRAST CLINICAL INFORMATION: Evaluate for CVA COMPARISON: CT angiogram of head and neck 11/13/2023, CT head 11/13/2023 TECHNIQUE: MRI of the brain was obtained using routine sequences without contrast. FINDINGS: There is no reduced diffusion to suggest acute infarct. Susceptibility weighted sequence is within normal limits. No mass effect, extra-axial collection, midline shift, or other herniation. The ventricles and sulci are normal in size and configuration. Intracranial flow voids are preserved. Trace scattered paranasal sinus mucosal thickening. Small right mastoid fluid. No focal expansile or destructive osseous lesion. MR/MR head/brain wo con IMPRESSION: No acute infarction, mass effect, or midline shift.
[2023-11-13 20:28] VITALS: BP 155/112; PULSE 103; RESP 20; TEMP 36.6; O2SAT 96; BMI 31.3
--- NOTE | 2023-11-13 20:34 | ED_ITS ---
HPI - General Adult General Chief complaint: ETOH/Substance Use Stated complaint: detox Time Seen by Provider: 11/13/23 21:32 Source: patient and other (patient's girlfriend) Mode of arrival: ambulatory Limitations: no limitations History of Present Illness ED Provider: Marianna Bal PA-C HPI narrative: Patient is a 58 year old assigned male at with a history of alcohol abuse, bipolar disorder, DM, MDD, HLD, cocaine use, and alcohol withdrawal seizures presenting to the emergency department today with alcohol withdrawal and an intermittent headache. Patient states that he is withdrawing from alcohol and has been having an intermittent headache for the last week. Patient states that he is having moments of feeling confused which is new for him. Patient denies any dizziness, lightheadedness, abdominal pain, nausea, vomiting, fever, chills, blurry vision, double vision, loss of vision, chest pain, difficulty breathing, shortness of breath, back pain, night sweats, pain with urination, increased urinary frequency, increased urinary urgency, blood in his urine or stool, syncope or a near syncopal episode, recent trauma or falls, bowel incontinence, bladder incontinence, or any other complaints at this time. Relieving factors: none Exacerbating factors: none Associated symptoms: confusion (intermittent) Treatments prior to arrival: none Related Data Home Medications ?Medication ?Instructions ?Recorded ?Confirmed quetiapine 100 mg tablet 200 mg PO BEDTIME PRN anxiety 03/08/23 11/14/23 bupropion HCl 200 mg tablet,12 hr 200 mg PO BID 11/14/23 11/14/23 sustained-release labetalol 300 mg tablet 300 mg PO BEDTIME 11/14/23 11/14/23 losartan 25 mg tablet 25 mg PO DAILY 11/14/23 11/14/23 melatonin 3 mg tablet 1 - 3 mg PO BEDTIME PRN Sleep 11/14/23 11/14/23 Previous Rx's ?Medication ?Instructions ?Recorded metformin 1,000 mg tablet 1,000 mg PO BID 90 days #180 tabs 08/11/23 tadalafil 5 mg tablet (Cialis) 5 mg PO DAILY PRN sexual activity 08/11/23 10 days #10 tabs pantoprazole 40 mg tablet,delayed 40 mg PO DAILY@0630 #90 tabs 08/26/23 release ropinirole 1 mg tablet 1 mg PO BEDTIME 30 days #30 tabs 09/14/23 rosuvastatin 40 mg tablet 40 mg PO BEDTIME #30 tabs 11/01/23 Allergies Allergy/AdvReac Type Severity Reaction Status Date / Time No Known Allergies Allergy Verified 11/13/23 20:35 [No Known Allergies*] Review of Systems 2 Constitutional: Constitutional: Reports no additional constitutional complaints, Denies chills, Denies fever(s), Reports headache(s) and Denies night sweats Eyes: Eyes: Reports no additional eye complaints, Denies blurry vision, Denies change in vision, Denies diplopia, Denies eye discharge, Denies loss of vision and Denies eye pain ENT: Denies dizziness and Reports headache(s) Cardiovascular: Cardiovascular: Reports no additional cardiovascular complaints, Denies chest pain, Denies lightheadedness, Denies Loss of Consciousness and Denies dyspnea Respiratory: Respiratory: Reports no additional respiratory complaints and Denies dyspnea Gastrointestinal: Gastrointestinal: Reports no additional gastrointestinal complaints, Denies abdominal pain, Denies melena, Denies hematochezia, Denies change in bowel habits and Denies change in stool character Genitourinary: Genitourinary: Reports no additional male genitourinary complaints, Denies hematuria, Denies oliguria, Denies difficulty urinating, Denies dysuria, Denies urinary frequency, Denies urinary hesitancy, Denies urinary incontinence and Denies urinary urgency Musculoskeletal: Musculoskeletal: Reports no additional musculoskeletal complaints, Denies numbness and Denies tingling Neurologic: Denies dizziness, Reports headache(s), Denies loss of vision, Denies numbness and Denies tingling Comments: intermittent confusion Psychiatric: Psychiatric: Reports no additional psychiatric complaints Endocrine: Endocrine: Reports no additional endocrine complaints Hematologic/Lymphatic: Hematologic/Lymphatic: Reports no additional hematologic/lymphatic complaints Allergic/Immunologic: Allergic/Immunologic: Reports no additional allergic/immunologic complaints PMFSH Past Medical History Attestation statement: The following information was validated with the patient. (all information validated with the patient's girlfriend) Source: old records reviewed, nursing notes reviewed and other (patient's girlfriend provided additional history and confirmed the history provided by the patient.) Medical History Fatty liver Obstructive sleep apnea Essential and other specified forms of tremor Hypersomnolence Snoring Diabetes mellitus Alcoholic ketoacidosis Anxiety with depression Alcohol use disorder, severe, dependence Recurrent moderate major depressive disorder with anxiety Insomnia Alcohol withdrawal History of alcoholic hepatitis HTN (hypertension) Acute hepatitis Alcohol abuse with withdrawal Obesity (BMI 30-39.9) GERD without esophagitis Mixed hyperlipidemia Benign essential hypertension Surgical History History of esophagogastroduodenoscopy (EGD) H/O colonoscopy Family History Family History Father Advanced cirrhosis of liver Alcoholic cirrhosis Substance use disorder Mother Dementia Maternal Grandfather Substance use disorder Sister Substance use disorder Maternal Grandfather Colon cancer Prostate cancer Social History Social History Household Members: Spouse Household Members Other:: Cousin Housing: House Do you presently have visiting nurse or other home services: No Unable to assess alcohol history related to: Unknown Alcohol intake: current Alcohol intake frequency: 3 or more drinks per day Alcohol type: beer, wine and hard liquor Patient Tobacco Use Status: Former Tobacco user Tobacco use type: Cigarette Years Smoked: quit 10 years ago Smoked in Last 30 Days: No e-Cigarette/Vaping Use: Never Used Second Hand Smoke Exposure: No Use of substances other than those prescribed or required for medical reasons: No Substance Use Type: Crack/Cocaine Substance Use Frequency: Occasionally Last Used Substance: Days (ago) Currently Displaying Signs/Symptoms of Drug Intoxication Withdrawal: No Advance Directives: Yes Advance Directives on File: Yes Advance Directives Date on File: 10/23/21 Do you have a plan to hurt others: No Plan Recently lost weight without trying: No service: No Current occupational status: 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 Physical Exam ED Vital Signs: Vital Signs - 24 hr 11/13/23 23:45 11/14/23 02:05 Temperature 98.0 F 97.8 F Pulse Rate 91 80 Respiratory Rate 20 20 Blood Pressure 157/100 H 145/99 H Pulse Oximetry 95 94 Oxygen Delivery Method Room Air Room Air BMI result Body Mass Index 31.3 Const General: cooperative, no acute distress, alert and awake Nutritional Appearance: well nourished Orientation/consciousness: patient oriented x3 Limitations: no limitations HENMT Head: Yes normal to inspection and Yes atraumatic Ears: hearing grossly normal bilaterally and external ears normal General nose exam: Normal external nose present, no nasal discharge noted and no epistaxis Face and sinus: Yes normal facial exam, No abrasion and No laceration Mouth: Normal oral and palatal mucosa present, no drooling and no muffled voice Eyes General: appearance normal, both eyes and all related structures Periorbital: periorbital findings normal Eyelids: Yes eyelids normal Conjunctivae: conjunctivae normal Pupils: Equal, round and reactive pupils present EOM: EOMs intact bilaterally Neck Neck: Yes normal visual inspection, Yes full ROM and Yes no lymphadenopathy Chest Chest palpation & inspection: normal inspection of the chest Resp Effort & Inspection: normal respiratory effort and able to speak in complete sentences GI Inspection: Yes normal to inspection Neuro General: patient oriented x3 and moves all extremities Cranial nerves: Yes Equal, round and reactive pupils present Cognition (Neuro): normal cognition Extrem General: Yes normal to inspection, Yes full ROM and Yes capillary refill normal Psych Appearance: grossly normal Mental Status: mental status grossly normal Affect: normal affect Attitude: cooperative Thought process: Normal thought process present Thought content: Normal thought content present Insight: Good insight present (Psych) NIH Stroke Scale Internal: Initial- Upon Arrival Time: 21:32 Level of Consciousness: Alert Level of Consciousness Questions: Answers both questions correctly Level of Consciousness Commands: Performs both tasks correctly Best Gaze: Normal Visual: No visual loss Facial Palsy: Normal Motor Arm (Right): No drift Motor Arm (Left): No drift Motor Leg (Right): No drift Motor Leg (Left): No drift Limb Ataxia: Absent Sensory: Normal Best Language: No aphasia Dysarthia: Normal Extinction and Inattention: No abnormality Score: 0 Course Course Course Narrative: RME: DOne by CHI Garcai. 58-year-old male with history of alcoholism presents to the ED seeking detox and states going through withdrawal. Patient tachycardic and states he is having tremors. To be brought to the ED Medications Administered Generic Name Dose Route Start Last Admin Trade Name Freq PRN Reason Stop Dose Admin Al Hydroxide/Mg Hydroxide 30 ml 11/14/23 22:51 11/14/23 22:55 Magnesium Hydrox/Alum Hydrox 30 Ml Oral.Susp PO 30 ml Q4H PRN Administration Heartburn Aspirin 81 mg 11/14/23 09:00 11/14/23 08:44 Aspirin 81 Mg Tab.Chew PO 81 mg DAILY MAILE Administration Atorvastatin Calcium 40 mg 11/14/23 02:15 11/14/23 20:19 Atorvastatin Calcium 40 Mg Tablet PO 40 mg BEDTIME MAILE Administration Bupropion HCl 450 mg 11/14/23 12:30 11/14/23 12:58 Bupropion Hcl Xl 150 Mg Tab.Er.24h PO 450 mg DAILY MAILE Administration Calcium Carbonate 750 mg 11/14/23 02:11 11/14/23 21:32 Calcium Carbonate 750 Mg Tab.Chew PO 750 mg Q4H PRN Administration Heartburn Enoxaparin Sodium 40 mg 11/14/23 09:00 11/14/23 08:47 Enoxaparin Sodium 40 Mg/0.4 Ml Syringe SUBCUT 40 mg Q24H MAILE Administration Folic Acid 1 mg 11/14/23 02:15 11/14/23 08:44 Folic Acid 1 Mg Tablet PO 1 mg DAILY MAILE Administration Insulin Human Lispro 0 unit 11/14/23 07:30 11/14/23 20:27 Insulin Lispro 100 Unit/Ml 3 Ml Vial SUBCUT 6 unit QIDACHS MAILE Administration Protocol Labetalol HCl 300 mg 11/14/23 21:00 11/14/23 20:20 Labetalol Hcl 100 Mg Tablet PO 300 mg BEDTIME MAILE Administration Losartan Potassium 25 mg 11/14/23 12:00 11/14/23 12:58 Losartan Potassium 25 Mg Tablet PO 25 mg DAILY MAILE Administration Protocol Melatonin 6 mg 11/14/23 02:11 11/14/23 20:21 Melatonin 3 Mg Tablet PO 6 mg BEDTIME PRN Administration Insomnia Metformin HCl 1,000 mg 11/14/23 12:00 11/14/23 20:19 Metformin Hcl 1,000 Mg Tablet PO 1,000 mg BID MAILE Administration Multivitamins/Vitamin C 1 tab 11/14/23 09:00 11/14/23 08:44 Multivitamin Tablet PO 1 tab DAILY MAILE Administration Ondansetron HCl 4 mg 11/14/23 02:11 11/14/23 14:44 Ondansetron Hcl 4 Mg/2 Ml Vial IVPUSH 4 mg Q8H PRN Administration Nausea and Vomiting Phenobarbital 45 mg 11/14/23 09:00 11/14/23 20:21 Phenobarbital 15 Mg Tablet PO 11/15/23 21:01 45 mg BID MAILE Administration Protocol Quetiapine Fumarate 200 mg 11/14/23 11:53 11/14/23 17:31 Quetiapine Fumarate 200 Mg Tablet PO 200 mg BEDTIME PRN Administration anxiety Ropinirole HCl 1 mg 11/14/23 21:00 11/14/23 20:19 Ropinirole Hcl 1 Mg Tablet PO 1 mg BEDTIME MAILE Administration Sodium Chloride 3 ml 11/14/23 08:00 11/14/23 20:23 0.9 % Sodium Chloride Flush 3 Ml Syringe IVFLUSH 3 ml QSHIFT MAILE Administration Thiamine HCl 100 mg 11/14/23 02:15 11/14/23 08:44 Thiamine Hcl 100 Mg Tablet PO 100 mg DAILY MAILE Administration Discontinued Medications Generic Name Dose Route Start Last Admin Trade Name Freq PRN Reason Stop Dose Admin Aspirin 81 mg 11/14/23 01:15 11/14/23 01:32 Aspirin 81 Mg Tab.Chew PO 11/14/23 01:16 81 mg ONCE ONE Administration Iohexol 70 ml 11/13/23 23:32 11/13/23 23:32 Iohexol 350 Mg/Ml 100 Ml Infus..Btl IV 11/13/23 23:33 70 ml ONCE ONE Administration Lorazepam 2 mg 11/13/23 21:36 11/13/23 21:50 Lorazepam 1 Mg Tablet PO 11/13/23 21:37 2 mg ONCE ONE Administration Phenobarbital Sodium 264 mg 11/13/23 23:00 11/13/23 22:37 Phenobarbital Sodium 130 Mg/Ml Im Once IM 11/13/23 23:01 264 mg ONCE ONE Administration Protocol Phenobarbital Sodium 198 mg 11/14/23 02:00 11/14/23 05:24 Phenobarbital Sodium 130 Mg/Ml Vial Im Q3hx2 IM 11/14/23 05:01 198 mg Q3H MAILE Administration Protocol Medical Decision Making Medical Decision Making MDM Narrative: Patient is a 58 year old assigned male at with a history of alcohol abuse, bipolar disorder, DM, MDD, HLD, cocaine use, and alcohol withdrawal seizures presenting to the emergency department today with a headache, alcohol withdrawal, and intermittent confusion. Patient's physical exam was unremarkable. Patient's blood work was unremarkable. Patient's EKG was unremarkable. Patient's chest x-ray showed no acute process. Patient's head CT showed bilateral occipital cobos-white matter loss. The radiologist called and informed me of this result. He recommended an MRI to confirm or rule out sub- acute stroke. Given the patient's cocaine use history, I ordered a CTA of the head and neck which is pending at this time. Patient was started on the phenobarb protocol for alcohol withdrawal. I spoke to the hospitalist who agreed to admission. I explained my physical exam findings as well as all test results to the patient and the patient's girlfriend. I answered all questions asked by the patient and the patient's girlfriend. Patient and the patient's girlfriend verbalized agreement and understanding with this treatment plan and admission. Differential Diagnosis Differential Diagnoses: The differential diagnosis associated with the presentation includes Alcohol withdrawal Subacute stroke Admission/Observation Consideration of admission/observation: Escalation of care including admission/observation considered Patient admitted. Consult Healthcare Provider Management of the patient was discussed with: Hospitalist (agreed to admission as noted in the MDM Rationale portion of this note.) Lab Data [facility] Lab Attestation statement: I reviewed the patient's lab results. My interpretation of these results are in the MDM Rationale portion of this note. 11/14/23 04:37 11/14/23 04:37 Labs: Lab Results 11/13/23 11/13/23 11/13/23 Range/Units 20:53 21:33 21:43 WBC 9.1 (4.8-10.8) X10*3/uL RBC 4.96 (4.60-5.80) X10*6/uL Hgb 15.4 (14.0-18.0) g/dl Hct 41.6 L (42.0-52.0) % MCV 83.9 (80.0-98.0) fL MCH 31.0 (27.0-33.0) pg MCHC 37.0 H (31.0-36.0) g/dl RDW 13.2 (11.0-16.0) % Plt Count 253 (160-400) X10*3/uL MPV 8.9 L (9.4-12.4) fL Immature Gran % (Auto) 0.6 H (0.0-0.4) % Neut % (Auto) 51.5 (45-73) % Lymph % (Auto) 39.3 (20-40) % Cascade % (Auto) 6.8 (2-11) % Eos % (Auto) 1.1 (0-4) % Baso % (Auto) 0.7 (0-2) % Lymph # (Auto) 3.6 (1.2-4.9) X10*3/uL Cascade # (Auto) 0.6 (0.1-1.2) X10*3/uL Eos # (Auto) 0.1 (0.0-0.4) X10*3/uL Baso # (Auto) 0.1 (0.0-0.2) X10*3/uL Abs Immat Gran (auto) 0.05 H (0.00-0.03) X10*3/uL Absolute Neuts (auto) 4.7 (2.0-8.3) x10*3/uL Absolute Nucleated RBC 0.000 (0.0-0.012) X10*3/uL Nucleated RBC % (auto) 0.0 (0.0-0.2) /100WBC Sodium 143 (135-145) mmol/L Potassium 3.8 (3.3-5.1) mmol/L Chloride 102 (96-108) mmol/L Carbon Dioxide 25 (22-29) mmol/L Anion Gap 20 (12-20) BUN 10 (9-16) mg/dL Creatinine 0.97 (0.5-1.4) mg/dL Estim Creat Clear Calc 91.2 Estimated GFR > 60 Random Glucose 225 H (60-115) mg/dL Calcium 11.8 H D (8.4-10.2) mg/dL Magnesium 1.7 (1.6-2.6) mg/dL Total Bilirubin 0.5 (0.0-1.0) mg/dL AST 46 H (5-37) U/L ALT 52 H (0-40) U/L Alkaline Phosphatase 70 (39-117) U/L Ammonia 42 (13-55) umol/L Total Protein 7.8 (6.5-8.0) g/dL Albumin 4.9 (3.5-5.0) g/dL Urine Opiates Screen Not Detected (Not Detect) Ur Buprenorphine Scrn Not Detected (Not Detect) ng/mL Ur Oxycodone Screen Not Detected (Not Detect) ng/mL Urine Methadone Screen Not Detected (Not Detect) ng/mL Urine Fentanyl Screen Not Detected (Not Detect) Ur Barbiturates Screen Not Detected (Not Detect) Ur Phencyclidine Scrn Not Detected (Not Detect) Ur Amphetamines Screen Not Detected (Not Detect) U Benzodiazepines Scrn Not Detected (Not Detect) Urine Cocaine Screen POSITIVE H (Not Detect) U Marijuana (THC) Screen POSITIVE H (Not Detect) Ethyl Alcohol 243 mg/dL COVID-19 (ARCENIO) Negative (Negative) COVID-19 Clin Com See Note Independent Interpretation I performed an independent interpretation of an: EKG, Plain X-Ray and CT Scan Interpretation: My interpretation is in agreement with the radiologist's impression of these imaging studies. - EXAMINATION: CT HEAD WITHOUT CONTRAST CLINICAL INFORMATION: Change in mental status. COMPARISON: CT head dated 09/11/2022. TECHNIQUE: Contiguous axial imaging was performed from the skull base to vertex without intravenous administration of contrast. This CT examination was performed using dose optimization techniques as appropriate, variously including the following: *Automated exposure control *Adjustment of mA and/or kV according to patient size (this includes techniques or standardized protocols for targeted exams where dose is matched to indication/reason for exam; i.e. extremities or head) *Use of iterative reconstruction technique DLP: 766 mGy-cm FINDINGS: There is no acute intracranial hemorrhage. There is apparent loss of rivera-white matter differentiation within the occipital poles bilaterally. Subacute infarction is not excluded. Clinical correlation and MRI correlation is recommended. There is no midline shift or mass effect. No extra-axial fluid collection. The ventricles are normal in size. The orbits are symmetric and within normal limits. Paranasal sinuses are clear. Mastoid air cells are well aerated. CT/CT head/brain wo IV con IMPRESSION: There is apparent loss of rivera-white matter differentiation within the occipital poles bilaterally. Subacute infarction is not excluded. Clinical correlation and MRI correlation is recommended. This critical result was discussed with Dr.Kristine Bal at 10:51 on 11/13/2023 and it was ascertained that the content and urgency of the report was understood at the time of direct communication. Dictated By: Amilcar Pelletier Jr, DO Signed By: Electronically signed by Amilcar Pelletier Jr, DO 11/13/23 2254 - EXAMINATION: XR CHEST CLINICAL INFORMATION: Altered mental status COMPARISON: 08/19/2022 TECHNIQUE: 2 views of the chest were obtained. FINDINGS: There is slight elevation of the right hemidiaphragm. No focal consolidation is seen bilaterally. No evidence of pneumothorax, pleural effusion, or overt pulmonary edema. The cardiomediastinal contour is unremarkable. Degenerative changes are noted in the spine. XR/XR chest 2V IMPRESSION: No acute cardiopulmonary findings. Dictated By: Darrel Dahl MD Signed By: Electronically signed by Darrel Dahl MD 11/14/23 0002 - Vent. Rate: 098 BPM Atrial Rate: 098 BPM P-R Int: 178 ms QRS Dur: 094 ms QT Int: 340 ms P-R-T Axes: 025 000 014 degrees QTc Int: 434 ms Normal sinus rhythm Cannot rule out Anterior infarct (cited on or before 21-SEP-2023) Abnormal ECG When compared with ECG of 21-SEP-2023 20:50, No significant change was found DD/ 42 Radiology Impression Discussion of test interpretation with radiology: I have reviewed the radiologist's reading. Independent Historian Clinical information obtained from an independent historian. History obtained from or confirmed by: Other (patient's girlfriend provided additional history and confirmed the history provided by the patient.) Chronic Conditions Patient?s care impacted by: Diabetes Critical Care Time Critical Care Time Critical Care Time: Yes Total Critical Care Time: 46 Attestation: I spent 46 minutes of Critical Care Time with this patient. This does not include time spent on separately reported billable procedures. Discharge Plan Discharge Clinical Impression: Alcohol withdrawal Patient Disposition: Admitted As Inpatient Interventions: Admission Worksheet (ED) Last Done: 11/14/23 17:49 Discharge Date/Time: 11/14/23 18:17
--- NOTE | 2023-11-13 20:46 | ECG_ITS ---
Test Reason : ETOH Blood Pressure : / mmHG Vent. Rate : 098 BPM Atrial Rate : 098 BPM P-R Int : 178 ms QRS Dur : 094 ms QT Int : 340 ms P-R-T Axes : 025 000 014 degrees QTc Int : 434 ms Normal sinus rhythm Cannot rule out Anterior infarct (cited on or before 21-SEP-2023) Abnormal ECG When compared with ECG of 21-SEP-2023 20:50, No significant change was found Referred By: Generic ED Physician Electronically Signed By:ISRA HERNANDEZ MD
--- NOTE | 2023-11-13 20:54 | MHC.EDTECH ---
Patient ekg taken and was read by provider ,blood drawn and covid swab collected all sent to lab .
[2023-11-13 20:58] LABS: MANUAL DIFF FLAG NO
--- NOTE | 2023-11-13 21:07 | PC.NURSE ---
pt very vague in his answers in regards to ETOH consumption. unable to tell me how much he drinks. family member at bedside states hes been binging since Tuesday and his last drink was at approximately 1900. pt does not state what it is that he drinks. pacing around the room repeatedly stating I'm withdrawing. I'm so sick. when asked what symptoms he is feeling he rpts that he does not know. family member at bedside states he vomited some phlegm a little while ago. rpts it is hard for her to give details as the patient is consistently in and out of the home. pt is noticeably restless, unable to sit still.
[2023-11-13 21:17] LABS: Alanine Aminotransferase 52 U/L (0-40); Albumin Level 4.9 g/dL (3.5-5.0); Alkaline Phosphatase 70 U/L (39-117); Anion Gap 20 (12-20); Aspartate Amino Transferase 46 U/L (5-37); Bilirubin Total 0.5 mg/dL (0.0-1.0); Blood Urea Nitrogen 10 mg/dL (9-16); Calcium 11.8 mg/dL (8.4-10.2); Carbon Dioxide 25 mmol/L (22-29); Chloride 102 mmol/L (96-108); Creatinine Clr Calc Pharmacy 91.2; Estimated Glomerular Filt Rate > 60; Ethanol 243 mg/dL; Glucose Random 225 mg/dL (60-115); Magnesium 1.7 mg/dL (1.6-2.6); Potassium 3.8 mmol/L (3.3-5.1); Sodium 143 mmol/L (135-145); Total Protein 7.8 g/dL (6.5-8.0)
[2023-11-13 21:30] LABS: COVID-19 Test Negative (Negative); IDNOW Serial# 152EDE1D
[2023-11-13] MEDS: LORazepam 1 MG TABLET 2 MG PO (21:50)
--- NOTE | 2023-11-13 21:50 | MHC.CARE ---
Consult placed for CARE Team regarding pt wanting detox. CARE Team provided the guide booklet to the pt and his girlfriend. Pt stated that he needs help and he wants to go to a detox once he is d/c from this hospital.
[2023-11-13 21:53] LABS: Amphetamine Screen Urine Not Detected (Not Detect); Barbiturates, Urine Not Detected (Not Detect); Benzodiazepines Screen Urine Not Detected (Not Detect); Buprenorphine Scr Not Detected (Not Detect); Cannabinoid Screen Urine POSITIVE (Not Detect); Cocaine Screen Urine POSITIVE (Not Detect); Fentanyl, urine Not Detected (Not Detect); Methadone Screen, Urine Not Detected (Not Detect); Opiate Screen Urine Not Detected (Not Detect); Oxycodone Screen Urine Not Detected (Not Detect); Phencyclidine Screen Urine Not Detected (Not Detect)
[2023-11-13 21:57] LABS: Basophils Absolute Auto 0.1 X10*3/uL (0.0-0.2); Basophils Percent Auto 0.7 % (0-2); Eosinophils Absolute Auto 0.1 X10*3/uL (0.0-0.4); Eosinophils Percent Auto 1.1 % (0-4); Hematocrit 41.6 % (42.0-52.0); Hemoglobin 15.4 g/dl (14.0-18.0); Imm Gran Abs Auto 0.05 X10*3/uL (0.00-0.03); Imm Gran Pct Auto 0.6 % (0.0-0.4); Lymphocytes Absolute Auto 3.6 X10*3/uL (1.2-4.9); Lymphocytes Percent Auto 39.3 % (20-40); Mean Corpuscular Volume 83.9 fL (80.0-98.0); Mean Platelet Volume 8.9 fL (9.4-12.4); Monocytes Absolute Auto 0.6 X10*3/uL (0.1-1.2); Monocytes Percent Auto 6.8 % (2-11); Neutrophils Absolute Auto 4.7 x10*3/uL (2.0-8.3); Neutrophils Percent Auto 51.5 % (45-73); Platelet Count 253 X10*3/uL (160-400); Red Blood Count 4.96 X10*6/uL (4.60-5.80); Red Cell Distribution Width 13.2 % (11.0-16.0); White Blood Count 9.1 X10*3/uL (4.8-10.8)
[2023-11-13 22:00] VITALS: BP 156/90; PULSE 84; RESP 12; TEMP 36.8; O2SAT 97
[2023-11-13 22:35] LABS: Ammonia 42 umol/L (13-55)
[2023-11-13] MEDS: PHENobarbitaL sodium 130 MG/ML IM ONCE 264 MG IM (22:37)
[2023-11-13] MEDS: iohexoL 350 MG/ML 100 ML INFUS..BTL 70 ML IV (23:32)
[2023-11-13 23:45] VITALS: BP 157/100; PULSE 91; RESP 20; TEMP 36.7; O2SAT 95
[2023-11-14] VITALS (8 sets, daily range): BP systolic 116–152; BP diastolic 69–108; PULSE 80–111; RESP 13–20; TEMP 36.2–37.1; O2SAT 94–100; BMI 31.7
[2023-11-14] MEDS: Aspirin 81 MG TAB.CHEW PO ×2 (01:32→08:44)
[2023-11-14] MEDS: PHENobarbitaL sodium 130 MG/ML VIAL IM Q3Hx2 198 MG IM ×2 (01:32→05:24)
--- NOTE | 2023-11-14 02:13 | P.HPHOSP_ITS ---
History of Present Illness Date of Service: 11/14/23 Chief Complaint: Alcohol withdrawal This is a 58-year-old male with pertinent history of SEBASTIAN not on CPAP, hpr-bpqtmgi-yufeohyes diabetes mellitus, alcohol use disorder, hypertension, mood disorder, gastroesophageal reflux disease, cocaine use disorder who presents to the emergency department for concerns of alcohol withdrawal. Patient states his last drink was on the day of presentation. Patient has been feeling nauseous and had an episode of nonbloody emesis since he stopped drinking. No vision changes. Also has been having anxiety and tremors. Did endorse auditory hallucination. Does have a history of alcohol withdrawal in the past. No history of alcohol withdrawal seizures. No fever, chills, chest discomfort, palpitations, shortness of breath, abdominal pain, changes in urinary or bowel habits. In the emergency department, patient was initiated on phenobarb protocol. Review of Systems 2 Constitutional: Constitutional: Reports fatigue and Reports malaise Cardiovascular: Cardiovascular: Reports no additional cardiovascular complaints Respiratory: Respiratory: Reports no additional respiratory complaints Gastrointestinal: Gastrointestinal: Reports nausea and Reports vomiting Genitourinary: Genitourinary: Reports no additional male genitourinary complaints Neurologic: Reports tremor(s) Psychiatric: Psychiatric: Reports anxiety and Reports auditory hallucinations Endocrine: Endocrine: Reports fatigue PMFSH Medical History Fatty liver Obstructive sleep apnea Essential and other specified forms of tremor Hypersomnolence Snoring Diabetes mellitus Alcoholic ketoacidosis Anxiety with depression Alcohol use disorder, severe, dependence Recurrent moderate major depressive disorder with anxiety Insomnia Alcohol withdrawal History of alcoholic hepatitis HTN (hypertension) Acute hepatitis Alcohol abuse with withdrawal Obesity (BMI 30-39.9) GERD without esophagitis Mixed hyperlipidemia Benign essential hypertension Family History Father Advanced cirrhosis of liver Alcoholic cirrhosis Substance use disorder Mother Dementia Maternal Grandfather Substance use disorder Sister Substance use disorder Maternal Grandfather Colon cancer Prostate cancer Surgical History History of esophagogastroduodenoscopy (EGD) H/O colonoscopy Social History Household Members: Significant Other Household Members Other:: Cousin Housing: House Do you presently have visiting nurse or other home services: No Unable to assess alcohol history related to: Unknown Alcohol intake: current Alcohol intake frequency: 3 or more drinks per day Alcohol type: beer, wine and hard liquor Patient Tobacco Use Status: Former Tobacco user Tobacco use type: Cigarette Years Smoked: quit 10 years ago Smoked in Last 30 Days: No e-Cigarette/Vaping Use: Never Used Second Hand Smoke Exposure: No Use of substances other than those prescribed or required for medical reasons: No Substance Use Type: Crack/Cocaine Advance Directives: Yes Advance Directives on File: Yes Advance Directives Date on File: 10/23/21 Do you have a plan to hurt others: No Plan service: No Current occupational status: 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 Meds Allergies Allergy/AdvReac Type Severity Reaction Status Date / Time No Known Allergies Allergy Verified 11/13/23 20:35 [No Known Allergies*] Active Medications: Current Medications Pharmacy Consult (Consult Rx Etoh Phenob Im/Po) 1 each MISCELLANE ONCE PRN; Protocol PRN Reason: Consult order Phenobarbital (Phenobarbital 15 Mg Tablet) 45 mg PO BID MAILE; Protocol Stop: 11/15/23 21:01 Phenobarbital (Phenobarbital 30 Mg Tablet) 30 mg PO BID MAILE; Protocol Stop: 11/17/23 21:01 Phenobarbital (Phenobarbital 30 Mg Tablet) 30 mg PO DAILY MAILE; Protocol Stop: 11/19/23 09:01 Phenobarbital Sodium (Phenobarbital Sodium 130 Mg/Ml Vial Im Q3hx2) 198 mg IM Q3H MAILE; Protocol Stop: 11/14/23 05:01 Last Admin: 11/14/23 01:32 Dose: 198 mg Home Medications ?Medication ?Instructions ?Recorded ?Confirmed ?Last Taken ?Type quetiapine 100 mg tablet 200 mg PO BEDTIME PRN anxiety 03/08/23 09/14/23 05/02/23 History bupropion HCl 150 mg 24 hr tablet, 150 mg PO QAM 08/11/23 09/14/23 Unknown History extended release (Wellbutrin XL) Physical Exam 2 Vital Signs and Narrative: Vital Signs: Last Vital Signs Temp 97.8 F 11/14/23 02:05 Pulse 80 11/14/23 02:05 Resp 20 11/14/23 02:05 BP 145/99 H 11/14/23 02:05 Pulse Ox 94 11/14/23 02:05 O2 Del Method Room Air 11/14/23 02:05 BMI result Body Mass Index 31.3 Middle-aged male lying in bed in no distress Neck supple, no JVD Regular rate and rhythm, S1-S2 heard Regular breath sounds bilaterally, no wheezing or crackles appreciated Abdomen soft nontender, no guarding, no rigidity Patient is awake, alert and oriented to self, place, time and person, bilateral hand tremors, no focal motor deficit Psych: Anxious No pedal edema Results Labs 11/13/23 20:53 11/13/23 20:53 Labs: Laboratory Results - last 24 hr 11/13/23 11/13/23 11/13/23 20:53 21:33 21:43 MCV 83.9 MCH 31.0 MCHC 37.0 H RDW 13.2 Plt Count 253 MPV 8.9 L Immature Gran % (Auto) 0.6 H Neut % (Auto) 51.5 Lymph % (Auto) 39.3 Thayer % (Auto) 6.8 Eos % (Auto) 1.1 Baso % (Auto) 0.7 Lymph # (Auto) 3.6 Thayer # (Auto) 0.6 Eos # (Auto) 0.1 Baso # (Auto) 0.1 Abs Immat Gran (auto) 0.05 H Absolute Neuts (auto) 4.7 Absolute Nucleated RBC 0.000 Nucleated RBC % (auto) 0.0 Anion Gap 20 Estim Creat Clear Calc 91.2 Estimated GFR > 60 Random Glucose 225 H Calcium 11.8 H D Magnesium 1.7 Total Bilirubin 0.5 AST 46 H ALT 52 H Alkaline Phosphatase 70 Ammonia 42 Total Protein 7.8 Albumin 4.9 Urine Opiates Screen Not Detected Ur Buprenorphine Scrn Not Detected Ur Oxycodone Screen Not Detected Urine Methadone Screen Not Detected Urine Fentanyl Screen Not Detected Ur Barbiturates Screen Not Detected Ur Phencyclidine Scrn Not Detected Ur Amphetamines Screen Not Detected U Benzodiazepines Scrn Not Detected Urine Cocaine Screen POSITIVE H U Marijuana (THC) Screen POSITIVE H Ethyl Alcohol 243 COVID-19 (ARCENIO) Negative COVID-19 Clin Com See Note Imaging Radiologist's Impressions: Impressions Head CT 11/13/23 22:05 IMPRESSION: There is apparent loss of rivera-white matter differentiation within the occipital poles bilaterally. Subacute infarction is not excluded. Clinical correlation and MRI correlation is recommended. This critical result was discussed with Dr.Kristine Bal at 10:51 on 11/13/2023 and it was ascertained that the content and urgency of the report was understood at the time of direct communication. Chest X-Ray 11/13/23 22:07 IMPRESSION: No acute cardiopulmonary findings. Head/Neck CTA 11/13/23 23:20 IMPRESSION: 1. Atherosclerotic plaque and calcification at the right common carotid artery bifurcation resulting in approximately 70% luminal narrowing at the origin of the right internal carotid artery. 2. No large vessel occlusion or significant stenosis in the intracranial circulation. 3. Subtle hypoattenuation within the bilateral occipital lobes, more prominent on the right. While this could be artifactual in nature, infarct cannot be excluded, and as previously noted further evaluation with MRI is recommended. Assessment and Plan (1) Alcohol withdrawal: Status: Acute Plan This is a 58-year-old male with pertinent history of SEBASTIAN not on CPAP, awy-pbgxrqh-mosfrnkrp diabetes mellitus, alcohol use disorder, hypertension, mood disorder, gastroesophageal reflux disease, cocaine use disorder who presents to the emergency department for concerns of alcohol withdrawal. #. Alcohol withdrawal in a patient with alcohol use disorder: Initiated on phenobarb protocol in the ER. Also initiating thiamine, folic acid and multivitamin. Monitor CIWA. Consulted Addiction Team #. Doe-nlvkyqs-ezmcovhha diabetes mellitus with hyperglycemia: Initiating Accu- Cheks with sliding scale insulin #. ?Subacute CVA: Noted on imaging. Initiated aspirin and statin. Obtaining MRI #. Cocaine use disorder: Monitor for withdrawal. Addiction Team as above #. Hypertension: Continue home antihypertensives #. Gastroesophageal reflux disease: Ppi #. SEBASTIAN: Not on CPAP #. Mood disorder: Continue home mood stabilizers Med rec pending DVT prophylaxis: Lovenox Full code Admit as inpatient and will require two night minimum hospital stay for treatment of alcohol withdrawal (as above), which is not possible in a lesser acute setting. Quality Stroke Does the patient have a stroke diagnosis?: No VTE Prior VTE?: No VTE Risk Level:: Medical - moderate - high VTE Device Contraindication: Treatment Not Indicated VTE Drug Contraindication: N/A - Med Ordered
[2023-11-14] MEDS: Folic Acid 1 MG TABLET PO ×2 (03:10→08:44)
[2023-11-14] MEDS: Atorvastatin Calcium 40 MG TABLET PO ×2 (03:10→20:19)
[2023-11-14] MEDS: Thiamine HCL 100 MG TABLET PO ×2 (03:10→08:44)
[2023-11-14 05:00] LABS: MANUAL DIFF FLAG NO
[2023-11-14 05:01] LABS: Basophils Percent Auto 0.6 % (0-2); Eosinophils Absolute Auto 0.1 X10*3/uL (0.0-0.4); Eosinophils Percent Auto 1.6 % (0-4); Hematocrit 39.6 % (42.0-52.0); Hemoglobin 14.5 g/dl (14.0-18.0); Imm Gran Abs Auto 0.03 X10*3/uL (0.00-0.03); Imm Gran Pct Auto 0.4 % (0.0-0.4); Lymphocytes Absolute Auto 2.6 X10*3/uL (1.2-4.9); Mean Corpuscular HGB Conc 36.6 g/dl (31.0-36.0); Mean Corpuscular Volume 84.8 fL (80.0-98.0); Mean Platelet Volume 8.5 fL (9.4-12.4); Monocytes Absolute Auto 0.6 X10*3/uL (0.1-1.2); Monocytes Percent Auto 8.5 % (2-11); Neutrophils Absolute Auto 3.5 x10*3/uL (2.0-8.3); Neutrophils Percent Auto 50.9 % (45-73); Platelet Count 206 X10*3/uL (160-400); Red Blood Count 4.67 X10*6/uL (4.60-5.80); Red Cell Distribution Width 13.2 % (11.0-16.0); White Blood Count 6.8 X10*3/uL (4.8-10.8)
[2023-11-14 05:15] LABS: Anion Gap 17 (12-20); Blood Urea Nitrogen 11 mg/dL (9-16); Calcium 11.2 mg/dL (8.4-10.2); Carbon Dioxide 27 mmol/L (22-29); Chloride 101 mmol/L (96-108); Creatinine Clr Calc Pharmacy 93.2; Estimated Glomerular Filt Rate > 60; Glucose Random 211 mg/dL (60-115); Potassium 3.9 mmol/L (3.3-5.1); Sodium 141 mmol/L (135-145)
[2023-11-14 07:34] LABS: Glucose, Whole Blood 219 mg/dL (60-115)
[2023-11-14] MEDS: Insulin Lispro 100 UNIT/ML 3 ML VIAL SUBCUT ×3 (07:36→20:27)
--- NOTE | 2023-11-14 08:15 | PHA.MEDREC ---
Addendum entered by Mariel Bustillos [facility] 11/14/23 09:01: reviewed Original Note: Pharmacy Consult ? Medication Reconciliation Pharmacy has completed the medication reconciliation. Confirmed mediations with patient. Patient confirmed he takes his Labeltalol 300mg at bedtime now instead of BID due to him having fatigue recently and he suspects its from that medication. Patient was unsure if he was taking Losartan 25mg tabs or not but looking in claims he got it in August 2023 for 90 days and its refilled now at his pharmacy for 90 days. Patient also confirmed he is suppose to be taking Ropinirole 1mg but ran out of the script over a week ago.
[2023-11-14] MEDS: Multivitamin TABLET 1 TAB PO (08:44)
[2023-11-14] MEDS: PHENobarbitaL 15 MG TABLET 45 MG PO ×2 (08:45→20:21)
[2023-11-14] MEDS: Enoxaparin Sodium 40 MG/0.4 ML SYRINGE SUBCUT (08:47)
[2023-11-14] MEDS: 0.9 % Sodium Chloride Flush 3 ML SYRINGE IVFLUSH ×2 (09:02→20:23)
--- NOTE | 2023-11-14 09:37 | PC.NURSE ---
Attempted to call Gabrielle to see if she can help answer the MRI screening form, she did not answer but a message was left at this time for her to call back when available.
--- NOTE | 2023-11-14 11:06 | MHC.CM.PN ---
PT REPORTS HE LIVES WITH HIS S/O AND IS INDEPENDENT WITH CARE HE HAS NO DME AND NO SERVICES HE USED TO HAVE A CPAP, BUT SAYS HE NO LONGER NEEDED IT HCP ON FILE PCP: THERESA CAVANAUGH DCP: HOME VIA PRIVATE TRANSPORT
--- NOTE | 2023-11-14 11:50 | PC.NURSE ---
MRI form filled out/faxed/placed in pt's chart. Pt continues to have AMS at this time. Not able to answer questions appropriately in regards to providing information for MRI screening form. Primary contact - Gabrielle Naranjo - called so information could be relayed over the phone. Gabrielle was able to provide information in regards to answering questions to complete form. Plan of care ongoing.
--- NOTE | 2023-11-14 11:55 | PM.EVENT ---
Event Note Date of Service: 11/14/23 Event Note: Chart reviewed patient examined. Agree with H&P and physical exam as outlined no changes since admission. Continue plan as ordered Time Spent With Patient Time: Total time managing care of this patient today ____ minutes.
[2023-11-14 12:14] LABS: Glucose, Whole Blood 189 mg/dL (60-115)
[2023-11-14] MEDS: buPROPion HCl XL 150 MG TAB.ER.24H 450 MG PO (12:58)
[2023-11-14] MEDS: metFORMIN HCl 1,000 MG TABLET 1000 MG PO ×2 (12:58→20:19)
[2023-11-14] MEDS: Losartan Potassium 25 MG TABLET PO (12:58)
--- NOTE | 2023-11-14 13:01 | PC.NURSE ---
pt a/ox4. vss and up to date. nsr on the ekg monitor tech. updated CIWA = 4. pt medicated per provider order. pills whole w/ water. no difficulties in swallowing noted. pt resting comfortably w/ the lights dimmed in no apparent distress. pt waiting for MRI to be completed at this time. no sob/wob noted. respirations even/unlabored. pt waiting for bed assignment at this time. plan of care ongoing. call ambriz placed within reach.
[2023-11-14] MEDS: ondansetron HCL 4 MG/2 ML VIAL IVPUSH (14:44)
--- NOTE | 2023-11-14 14:45 | PC.NURSE ---
pt c/o increased nausea - prn medication administered per provider order. effectiveness pending. pt otherwise has no complaints. denies pain. respirations remain even/unlabored. plan of care ongoing.
[2023-11-14] MEDS: QUEtiapine Fumarate 200 MG TABLET PO (17:31)
--- NOTE | 2023-11-14 17:32 | PC.NURSE ---
pt requesting dose of phenobarb at this time d/t increase in withdrawal sx. pt notified/aware that next dose is not due until 2099. updated CIWA = 10 at this time. pt requesting something for anxiety - prn medication utilized at this time. effectiveness pending. transport currently taking pt to MRI at this time.
[2023-11-14 18:39] LABS: Glucose, Whole Blood 140 mg/dL (60-115)
[2023-11-14] MEDS: rOPINIRole HCL 1 MG TABLET PO (20:19)
[2023-11-14] MEDS: Labetalol HCL 100 MG TABLET 300 MG PO (20:20)
[2023-11-14] MEDS: Melatonin 3 MG TABLET 6 MG PO (20:21)
[2023-11-14 20:24] LABS: Glucose, Whole Blood 279 mg/dL (60-115)
[2023-11-14] MEDS: Calcium Carbonate 750 MG TAB.CHEW PO (21:32)
[2023-11-14] MEDS: Magnesium Hydrox/Alum Hydrox 30 ML ORAL.SUSP PO (22:55)
[2023-11-15 03:30] VITALS: BP 113/64; PULSE 63; RESP 20; TEMP 36.1; O2SAT 95
[2023-11-15] MEDS: Omeprazole 20 MG CAPSULE.DR PO (05:58)
[2023-11-15 07:16] VITALS: BP 133/86; PULSE 70; RESP 18; TEMP 36.9; O2SAT 98
[2023-11-15 07:33] LABS: Glucose, Whole Blood 143 mg/dL (60-115)
[2023-11-15] MEDS: Folic Acid 1 MG TABLET PO (07:55)
[2023-11-15] MEDS: buPROPion HCl XL 150 MG TAB.ER.24H 450 MG PO (07:55)
[2023-11-15] MEDS: Losartan Potassium 25 MG TABLET PO (07:55)
[2023-11-15] MEDS: Thiamine HCL 100 MG TABLET PO (07:55)
[2023-11-15] MEDS: metFORMIN HCl 1,000 MG TABLET 1000 MG PO ×2 (07:55→20:36)
[2023-11-15] MEDS: Enoxaparin Sodium 40 MG/0.4 ML SYRINGE SUBCUT (07:56)
[2023-11-15] MEDS: Aspirin 81 MG TAB.CHEW PO (07:56)
[2023-11-15] MEDS: PHENobarbitaL 15 MG TABLET 45 MG PO ×2 (07:56→20:35)
[2023-11-15] MEDS: Multivitamin TABLET 1 TAB PO (07:56)
[2023-11-15] MEDS: 0.9 % Sodium Chloride Flush 3 ML SYRINGE IVFLUSH ×3 (07:57→20:45)
[2023-11-15] MEDS: ondansetron HCL 4 MG/2 ML VIAL IVPUSH ×2 (10:47→19:23)
[2023-11-15 11:27] LABS: Glucose, Whole Blood 219 mg/dL (60-115)
[2023-11-15] MEDS: Insulin Lispro 100 UNIT/ML 3 ML VIAL SUBCUT ×3 (12:35→20:39)
--- NOTE | 2023-11-15 13:37 | HO.PM.IMPN ---
Subjective Subjective Date of Service: 11/15/23 Interval History: Doing better overall. Still remains slightly nauseous Review of Systems Denies chest pain Denies shortness of breath Admits nausea without vomiting or diarrhea Denies fever chills Physical Exam Vital Signs: Vital Signs: Last Vital Signs Temp 98.4 F 11/15/23 07:16 Pulse 70 11/15/23 07:16 Resp 18 11/15/23 07:16 BP 133/86 11/15/23 07:16 Pulse Ox 98 11/15/23 07:16 O2 Del Method Room Air 11/15/23 07:16 BMI result Body Mass Index 31.7 Const: Other: Awake alert no acute distress Resp: Other: Clear to auscultation bilaterally no rales rhonchi or wheezes Cardio: Other: No S4; positive S1-S2; no S3 murmurs rubs or gallops GI: Other: Soft nontender nondistended normoactive bowel sounds Extrem: Other: No edema bilaterally Objective Data Active Medications Acetaminophen (Acetaminophen 325 Mg Tablet) 650 mg PO Q6H PRN PRN Reason: Pain, Mild (Pain Scale 1-3), fever or headache Al Hydroxide/Mg Hydroxide (Magnesium Hydrox/Alum Hydrox 30 Ml Oral.Susp) 30 ml PO Q4H PRN PRN Reason: Heartburn Last Admin: 11/14/23 22:55 Dose: 30 ml Documented By: ASHANTI Aspirin (Aspirin 81 Mg Tab.Chew) 81 mg PO DAILY [facility] Last Admin: 11/15/23 07:56 Dose: 81 mg Documented By: GABO Atorvastatin Calcium (Atorvastatin Calcium 40 Mg Tablet) 40 mg PO BEDTIME [facility] Last Admin: 11/14/23 20:19 Dose: 40 mg Documented By: ASHANTI Bupropion HCl (Bupropion Hcl Xl 150 Mg Tab.Er.24h) 450 mg PO DAILY [facility] Last Admin: 11/15/23 07:55 Dose: 450 mg Documented By: GABO Calcium Carbonate (Calcium Carbonate 750 Mg Tab.Chew) 750 mg PO Q4H PRN PRN Reason: Heartburn Last Admin: 11/14/23 21:32 Dose: 750 mg Documented By: ASHANTI Enoxaparin Sodium (Enoxaparin Sodium 40 Mg/0.4 Ml Syringe) 40 mg SUBCUT Q24H [facility] Last Admin: 11/15/23 07:56 Dose: 40 mg Documented By: GABO Folic Acid (Folic Acid 1 Mg Tablet) 1 mg PO DAILY [facility] Last Admin: 11/15/23 07:55 Dose: 1 mg Documented By: GABO Glucose (Glucose Gel 15 Gm Gel..Gram.) 15 gm PO Q15M PRN; Protocol PRN Reason: per Hypoglycemia Standing Ord. Dextrose (D10) 250 mls @ 750 mls/hr IV Q15M PRN; Protocol PRN Reason: per Hypoglycemia Standing Ord. Insulin Human Lispro (Insulin Lispro 100 Unit/Ml 3 Ml Vial) 0 unit SUBCUT QIDACHS [facility]; Protocol Last Admin: 11/15/23 12:35 Dose: 4 unit Documented By: GABO Labetalol HCl (Labetalol Hcl 100 Mg Tablet) 300 mg PO BEDTIME [facility] Last Admin: 11/14/23 20:20 Dose: 300 mg Documented By: ASHANTI Losartan Potassium (Losartan Potassium 25 Mg Tablet) 25 mg PO DAILY [facility]; Protocol Last Admin: 11/15/23 07:55 Dose: 25 mg Documented By: GABO Magnesium Hydroxide (Milk Of Magnesia 30 Ml Oral.Susp) 30 ml PO DAILY PRN PRN Reason: Constipation Melatonin (Melatonin 3 Mg Tablet) 6 mg PO BEDTIME PRN PRN Reason: Insomnia Last Admin: 11/14/23 20:21 Dose: 6 mg Documented By: ASHANTI Metformin HCl (Metformin Hcl 1,000 Mg Tablet) 1,000 mg PO BID [facility] Last Admin: 11/15/23 07:55 Dose: 1,000 mg Documented By: GABO Multivitamins/Vitamin C (Multivitamin Tablet) 1 tab PO DAILY [facility] Last Admin: 11/15/23 07:56 Dose: 1 tab Documented By: GABO Omeprazole (Omeprazole 20 Mg Capsule.Dr) 20 mg PO DAILY@0630 [facility] Last Admin: 11/15/23 05:58 Dose: 20 mg Documented By: ASHANTI Ondansetron HCl (Ondansetron Hcl 4 Mg/2 Ml Vial) 4 mg IVPUSH Q8H PRN PRN Reason: Nausea and Vomiting Last Admin: 11/15/23 10:47 Dose: 4 mg Documented By: GABO Pharmacy Consult (Consult Rx Etoh Phenob Im/Po) 1 each MISCELLANE ONCE PRN; Protocol PRN Reason: Consult order Phenobarbital (Phenobarbital 15 Mg Tablet) 45 mg PO BID [facility]; Protocol Stop: 11/15/23 21:01 Last Admin: 11/15/23 07:56 Dose: 45 mg Documented By: GABO Phenobarbital (Phenobarbital 30 Mg Tablet) 30 mg PO BID [facility]; Protocol Stop: 11/17/23 21:01 Phenobarbital (Phenobarbital 30 Mg Tablet) 30 mg PO DAILY [facility]; Protocol Stop: 11/19/23 09:01 Quetiapine Fumarate (Quetiapine Fumarate 200 Mg Tablet) 200 mg PO BEDTIME PRN PRN Reason: anxiety Last Admin: 11/14/23 17:31 Dose: 200 mg Documented By: LIZET Ropinirole HCl (Ropinirole Hcl 1 Mg Tablet) 1 mg PO BEDTIME [facility] Last Admin: 11/14/23 20:19 Dose: 1 mg Documented By: ASHANTI Sodium Chloride (0.9 % Sodium Chloride Flush 3 Ml Syringe) 3 ml IVFLUSH QSHIFT [facility] Last Admin: 11/15/23 07:57 Dose: 3 ml Documented By: GABO Thiamine HCl (Thiamine Hcl 100 Mg Tablet) 100 mg PO DAILY [facility] Last Admin: 11/15/23 07:55 Dose: 100 mg Documented By: GABO Labs 11/14/23 04:37 11/14/23 04:37 Labs: Laboratory Results - last 24 hr 11/14/23 11/14/23 11/15/23 18:36 20:21 07:20 POC Glucose 140 H 279 H 143 H 11/15/23 11:23 POC Glucose 219 H Assessment and Plan (1) Alcohol withdrawal: Status: Acute Plan This is a 58-year-old male with pertinent history of SEBASTIAN not on CPAP, fyl-uaytvsw-dsyryfzex diabetes mellitus, alcohol use disorder, hypertension, mood disorder, gastroesophageal reflux disease, cocaine use disorder who presents to the emergency department for concerns of alcohol withdrawal. 1.Alcohol withdrawal -continue phenobarb protocol -BRIAN tinoco -Zoan for nausea 2.Enf-fdinvuq-nfbvbafkt diabetes mellitus -acceptable control on current therapy -lispro correctional scale -adjust as indicated 3.Cocaine use disorder -question of CVA on CT scan -MRI unremarkable 4.Hypertension -acceptable control on current therapies -adjust as indicated Lovenox Full code Patient will require ongoing hospitalization to continue phenobarb protocol Quality Stroke Does the patient have a stroke diagnosis?: No VTE Prior VTE?: No VTE Risk Level:: Medical - moderate - high VTE Device Contraindication: Treatment Not Indicated VTE Drug Contraindication: N/A - Med Ordered
[2023-11-15 15:09] VITALS: BP 133/77; PULSE 75; RESP 20; TEMP 36.6; O2SAT 96
[2023-11-15 16:12] LABS: Glucose, Whole Blood 169 mg/dL (60-115)
[2023-11-15 19:25] VITALS: BP 142/75; PULSE 78; RESP 20; TEMP 36.7; O2SAT 96
[2023-11-15 19:57] LABS: Glucose, Whole Blood 221 mg/dL (60-115)
[2023-11-15] MEDS: Atorvastatin Calcium 40 MG TABLET PO (20:39)
[2023-11-15] MEDS: QUEtiapine Fumarate 200 MG TABLET PO (20:39)
[2023-11-15] MEDS: rOPINIRole HCL 1 MG TABLET PO (20:39)
[2023-11-15 20:44] VITALS: BP 142/75; PULSE 78
[2023-11-15] MEDS: Labetalol HCL 100 MG TABLET 300 MG PO (20:44)
[2023-11-16 03:21] VITALS: BP 123/71; PULSE 74; RESP 18; TEMP 36.4; O2SAT 94
[2023-11-16] MEDS: Omeprazole 20 MG CAPSULE.DR PO (06:08)
[2023-11-16 07:24] VITALS: BP 138/84; PULSE 69; RESP 17; TEMP 36.1; O2SAT 96
[2023-11-16 07:34] LABS: Glucose, Whole Blood 150 mg/dL (60-115)
[2023-11-16] MEDS: 0.9 % Sodium Chloride Flush 3 ML SYRINGE IVFLUSH (08:40)
[2023-11-16] MEDS: buPROPion HCl XL 150 MG TAB.ER.24H 450 MG PO (08:40)
[2023-11-16] MEDS: PHENobarbitaL 30 MG TABLET PO (08:40)
[2023-11-16] MEDS: Thiamine HCL 100 MG TABLET PO (08:41)
[2023-11-16] MEDS: Losartan Potassium 25 MG TABLET PO (08:41)
[2023-11-16] MEDS: Folic Acid 1 MG TABLET PO (08:41)
[2023-11-16] MEDS: Multivitamin TABLET 1 TAB PO (08:41)
[2023-11-16] MEDS: Aspirin 81 MG TAB.CHEW PO (08:41)
[2023-11-16] MEDS: metFORMIN HCl 1,000 MG TABLET 1000 MG PO (08:41)
--- NOTE | 2023-11-16 08:56 | MHC.RECOVRN ---
AUDIT-C Brief Intervention Pt had positive screen for unhealthy alcohol use on admission. Attempted to meet with pt to discuss alcohol use, pt declined. Provided with written resources and t/w contact information if needed.
[2023-11-16 11:24] LABS: Glucose, Whole Blood 224 mg/dL (60-115)
[2023-11-16] MEDS: Insulin Lispro 100 UNIT/ML 3 ML VIAL SUBCUT (11:27)
--- NOTE | 2023-11-16 11:53 | P.DS_ITS ---
DS: Providers Provider Date of Service: 11/16/23 Date of admission: 11/14/23 02:11 Primary care physician: ANG Rivera Consults: 11/13/23 20:32 Consult to Care Team Stat Comment: Reason for consultation: wants detox. states alcohol withdrawal 11/14/23 02:11 Addiction Medicine Routine Consulting Provider: Addiction Covering Reason for consultation: alcohol use disorder DS: Diagnosis Discharge Diagnosis (1) Alcohol withdrawal: Status: Acute DS: Summary Hospital Course Hospital Course: History of present illness: Date of Service: 11/14/23 Chief Complaint: Alcohol withdrawal This is a 58-year-old male with pertinent history of SEBASTIAN not on CPAP, jfq-rozguwu-vxphtgpow diabetes mellitus, alcohol use disorder, hypertension, mood disorder, gastroesophageal reflux disease, cocaine use disorder who presents to the emergency department for concerns of alcohol withdrawal. Patient states his last drink was on the day of presentation. Patient has been feeling nauseous and had an episode of nonbloody emesis since he stopped drinking. No vision changes. Also has been having anxiety and tremors. Did endorse auditory hallucination. Does have a history of alcohol withdrawal in the past. No history of alcohol withdrawal seizures. No fever, chills, chest discomfort, palpitations, shortness of breath, abdominal pain, changes in urinary or bowel habits. In the emergency department, patient was initiated on phenobarb protocol. Hospital course: 58-year-old male with pertinent history of SEBASTIAN not on CPAP, kwp-fusuygp-ibafbzhga diabetes mellitus, alcohol use disorder, hypertension, mood disorder, gastroesophageal reflux disease, cocaine use disorder presented to the emergency department for concerns of alcohol withdrawal and admitted to medical floor place on phenobarb protocol, with good response currently asymptomatic with no hallucination, no tremors, no nausea and vomiting tolerating diet wishes to follow AA, declined to meet with Addiction Team, written resources provided, now being discharged home with strong recommendation to completely abstain from alcohol. In regard to Gwh-qtdzbli-zjmogfrbz diabetes mellitus , recommend to follow diabetic Diet and resume metformin. Cocaine use disorder recommend come lead abstinence from illicit drug use Recommend to continue all home medications for mood disorder and high blood pressure. Time Attestation Discharge Coordination Time (in mins): 36 Quality: Safe Use of Opioids Does Pt have an Active Cancer Diagnosis on the Problem List?: No Quality: Stroke Does the patient have a stroke diagnosis?: No Physical Exam Vital Signs: Vital Signs: Last Vital Signs Temp 97.0 F 11/16/23 07:24 Pulse 69 11/16/23 07:24 Resp 17 11/16/23 07:24 BP 138/84 11/16/23 07:24 Pulse Ox 96 11/16/23 07:24 O2 Del Method Room Air 11/16/23 07:24 BMI result Body Mass Index 31.7 Const: Other: General awake alert x3, resting comfortably in no acute distress. Neck no JVD. CVS regular rate rhythm, Respiratory lungs clear to auscultation, no respiratory distress, no wheeze, no rhonchi. Gastrointestinal abdomen soft, non tender, bowel sounds audible, no guarding , no rigidity. Extremities no edema. Neuro non focal , no tremors, steady gait Skin no rash DS: Data Data Completed and Pending Completed studies during hospitalization [Text1]: Procedures Detoxification Services for Substance Abuse Treatment (05/07/23) Drainage of Right Axilla, Open Approach (10/22/21) Labs on day of discharge: Laboratory Results - last 24 hr 11/15/23 11/15/23 11/16/23 16:08 19:41 07:28 POC Glucose 169 H 221 H 150 H 11/16/23 11:19 POC Glucose 224 H Discharge Plan Discharge Anticipated Discharge Date/Time: 11/16/23 11:37 Patient Disposition: Home, Self-Care Discharge Diagnosis: Acute Alcohol withdrawal Referrals: Miky Avitia, [facility] [Primary Care Provider] - 1 Week Discharge Medications: Continued pantoprazole 40 mg tablet,delayed release (DR/EC) 40 mg PO DAILY@0630 Qty: 90 0RF rosuvastatin 40 mg tablet 40 mg PO BEDTIME Qty: 30 2RF melatonin 3 mg tablet 1 - 3 mg PO BEDTIME PRN (Reason: Sleep) bupropion HCl 200 mg tablet sustained-release 12 hr 200 mg PO BID labetalol 300 mg tablet 300 mg PO BEDTIME losartan 25 mg tablet 25 mg PO DAILY metformin 1,000 mg tablet 1,000 mg PO BID 90 Days Qty: 180 1RF tadalafil [Cialis] 5 mg tablet 5 mg PO DAILY PRN (Reason: sexual activity) 10 Days Qty: 10 0RF Rx Instructions: administer approximately 30min before sexual activity; do not use more than 1 dose per 24hrs ropinirole 1 mg tablet 1 mg PO BEDTIME 30 Days Qty: 30 1RF Rx Instructions: administer 1-3 hours before bedtime, for restless legs, cannot drink alcohol while on med quetiapine 100 mg tablet 200 mg PO BEDTIME PRN (Reason: anxiety) Discharge Orders: Discharge Order (Routine); Ordered 11/16/23 Ordered By: Katherine Chiang Diet: Advance to usual diet Activity on Discharge: As tolerated Stand Alone Forms: Patient Portal Discharge page, Work/School Release Print Language: Sinhala Care Plan Goals: Strongly recommend to completely abstain from alcohol and illicit drug use Health Concerns: Resume all home medications as before Plan of Treatment: Outpatient follow-up with primary care physician call for appointment Assessment: As above
--- NOTE | 2023-11-16 12:37 | MHC.CM.PN ---
Patient is discharged to home self care. He has arranged for transportation home.
== END 2023-11-16 13:18 | disposition home or self-care (01) | DRG 897 ==
LOC: HO.ED 11-14 01:16 → HO.EDOVER 11-14 02:24 → HO.S3 11-14 17:33
PROVIDERS: Hospitalist; Physician Assistant; Physician Assistant Medical; Admitting Provider Student in an Organized Health Care Education/Training Program; Emergency Provider Emergency Medicine Emergency Medical Services; PCP Nurse Practitioner Family; Visit Provider Hospitalist
DX: F10.231 Alcohol dependence with withdrawal delirium (principal); F33.9 Major depressive disorder, recurrent, unspecified; E78.2 Mixed hyperlipidemia; G47.33 Obstructive sleep apnea (adult) (pediatric); Y90.8 Blood alcohol level of 240 mg/100 ml or more; I10 Essential (primary) hypertension; E11.65 Type 2 diabetes mellitus with hyperglycemia; K21.9 Gastro-esophageal reflux disease without esophagitis; F14.90 Cocaine use, unspecified, uncomplicated; Z20.822 Contact with and (suspected) exposure to COVID-19; Z87.891 Personal history of nicotine dependence; Z79.84 Long term (current) use of oral hypoglycemic drugs; Z79.899 Other long term (current) drug therapy
CPT/HCPCS: 36415; 70450; 70496; 70498; 70551; 71046; 74018; 80048; 80053; 80307; 82140; 82947; 83735; 85025; 87635; 93005; 99285; J1650; J2405; J2560; Q9967

== ENCOUNTER → 2023-11-13 20:46 | Outpatient (BNV) | payer OTHER, SELFPAY | PROVIDERS: Admitting Provider Student in an Organized Health Care Education/Training Program; Emergency Provider Emergency Medicine Emergency Medical Services; PCP Nurse Practitioner Family; Visit Provider Internal Medicine Cardiovascular Disease | DX: R94.31 Abnormal electrocardiogram [ECG] [EKG] (principal) | CPT/HCPCS: 93010 ==

== ENCOUNTER → 2023-11-13 20:49 | Outpatient (BNV) | payer OTHER, SELFPAY | PROVIDERS: Emergency Provider Emergency Medicine Emergency Medical Services; PCP Nurse Practitioner Family; Visit Provider Student in an Organized Health Care Education/Training Program | DX: F10.939 Alcohol use, unspecified with withdrawal, unspecified (principal) | CPT/HCPCS: 99223; 99232; 99239; 99499 ==

== ENCOUNTER 2023-12-05 12:33 | Outpatient (AMB) | payer OTHER, SELFPAY ==
[2023-12-05 12:34] VITALS: BP 138/78; PULSE 76; O2SAT 98; BMI 31.8
--- NOTE | 2023-12-05 12:34 | MHC.PC.OV ---
Vital Signs 12/05/23 12:34 Height 5 ft 7 in Weight 203 lb BMI 31.8 BP 138/78 Blood Pressure Location Lt brachial Position Sitting Pulse 76 Pulse Source Pulse Oximeter Pulse Oximetry (%) 98 Oxygen Delivery Method Room Air Intake Visit Reasons: HDF ~ Post hospital discharge FU Intake Note: pt is here for HDF follow up Therapy Coordinator Required: No Accompanied by: Self / Same As Patient Allergies No Known Allergies [No Known Allergies*] Allergy (Verified 12/05/23 12:34) Medication List - Last Reconciled 12/05/23 by Miky Avitia, [facility]- bupropion HCl SR 200 mg PO BID labetalol 300 mg PO BEDTIME losartan 25 mg PO DAILY melatonin 1 - 3 mg PO BEDTIME PRN metformin 1,000 mg PO BID 90 days pantoprazole 40 mg PO DAILY@0630 quetiapine 200 mg PO BEDTIME PRN ropinirole 2 mg PO BEDTIME 30 days rosuvastatin 40 mg PO BEDTIME tadalafil (Cialis) 5 mg PO DAILY PRN 10 days Tobacco use date assessed: 08/11/23 Dental Screening Dental Screen Date: 08/11/23 HPI HDF ~ Post hospital discharge FU HPI Details Pt was seen in the ER on 11/12 with alcohol withdrawal and intermittent headache. Labs were unremarkable. EKG was unremarkable. Chest XR showed no acute process. Head CT showed bilat occipital cobos-white matter loss. CTA of the head/neck showed atherosclerotic plaque and calcification at the right common carotid artery bifurcation resulting in approximately 70% luminal narrowing at the origin of the right internal carotid artery. No large vessel occlusion or significant stenosis in the intracranial circulation. Subtle hypoattenuation within the bilateral occipital lobes, more prominent on the right. While this could be artifactual in nature, infarct cannot be excluded, and as previously noted further evaluation with MRI is recommended. MRI showed no acute infarction, mass effect, or midline shift. Pt was started on phenobarbital protocol with good results. Pt reports that he has not drank alcohol since being discharged. CTA did show mural calcifications of the right carotid bulb extending into the proximal segments of the right cervical ICA and resulting in 65-70% focal stenosis. Will refer to vascular. Denies chest pain, shortness of breath, and dizziness. Pt c/o fatigue. He reports falling asleep very easily during the day. He is becoming very irritable and is using high doses of caffeine to stay awake. Will refer for sleep study. Pt does have restless leg syndrome. Will increase ropinirole from 1mg to 2mg. He further reports his job has him up at all times, fluctuates, which further can screw up his sleep cycle. Pt reports he has not drank ETOH since his discharge. Encouraged him to abstain from use of ETOH. Pt is a diabetic, on an ARB and a statin. A1C in office today is 6.9. Microalbumin is up to date. Denies polyuria, polydipsia, and neuropathy. Pt denies any signs and symptoms of hypoglycemia and does know how to correct it. [facility] Medical History Fatty liver Obstructive sleep apnea Essential and other specified forms of tremor Hypersomnolence Snoring Diabetes mellitus Alcoholic ketoacidosis Anxiety with depression Alcohol use disorder, severe, dependence Recurrent moderate major depressive disorder with anxiety Insomnia Alcohol withdrawal History of alcoholic hepatitis HTN (hypertension) Acute hepatitis Alcohol abuse with withdrawal Obesity (BMI 30-39.9) GERD without esophagitis Mixed hyperlipidemia Benign essential hypertension Surgical History History of esophagogastroduodenoscopy (EGD) H/O colonoscopy Family History Father Advanced cirrhosis of liver Alcoholic cirrhosis Substance use disorder Mother Dementia Maternal Grandfather Substance use disorder Sister Substance use disorder Maternal Grandfather Colon cancer Prostate cancer Social History Household Members: Spouse Household Members Other:: Cousin Housing: House Do you presently have visiting nurse or other home services: No Unable to assess alcohol history related to: Unknown Alcohol intake: current Alcohol intake frequency: 3 or more drinks per day Alcohol type: beer, wine and hard liquor Patient Tobacco Use Status: Former Tobacco user Tobacco use type: Cigarette Years Smoked: quit 10 years ago e-Cigarette/Vaping Use: Never Used Second Hand Smoke Exposure: No Substance Use Type: Crack/Cocaine Advance Directives Date on File: 10/23/21 service: No Current occupational status: 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 1. Little interest or pleasure in doing things: not at all 2. Feeling down, depressed, or hopeless: not at all 3. Trouble falling or staying asleep, or sleeping too much: not at all 4. Feeling tired or having little energy: several days 5. Poor appetite or overeating: several days 6. Feeling bad about yourself - or that you are a failure or have let yourself or your family down: several days 7. Trouble concentrating on things, such as reading the newspaper or watching television: several days 8. Moving or speaking so slowly that other people could have noticed. Or the opposite - being so fidgety or restless that you have been moving around a lot more than usual: several days 9. Thoughts that you would be better off or of hurting yourself in some way: several days Total score: 6 Depression Screening Interpretation: Negative Depression Screening Done: Yes 95546 - PHQ-9 Billing: Yes Source: Developed by Drs. Colby Mariano, Cindy Baez, Jose Luis Gonzalez and colleagues, with an educational vinicio from [employer]. Thrive Questionnaire Date Thrive assessed: 12/05/23 I am a: Patient What is your living situation today?: I have a place to live, but I am worried about losing it in the future Within the past 12 months, did the food you bought not last and you didn't have the money to get more?: Sometimes True Within the past 12 months, did you worry whether your food would run out before you got money to buy more?: Sometimes True Do you have trouble paying for medicines?: No Do you have trouble getting transportation to medical appointments?: No Do you have trouble paying your heating and electricity bill?: No Do you have trouble taking care of your child, family member or friend?: No Do you have trouble with day-to-day activities such as bathing, preparing meals, shopping, managing finances, etc.?: No Are you currently unemployed and looking for a job?: No Are you interested in more education?: No Please select the resources that you would like help with: None THRIVE Score: 3 AUDIT C Alcohol Use Questionnaire (AUDIT-C) 1. How often do you have a drink containing alcohol?: Never 3. How often do you have six or more drinks on one occasion?: Never Total Score: 0 Score Reviewed/Action Taken: Yes KAYLA-7 AMB Questionnaire KAYLA-7 Date KAYLA - 7 assessed: 12/05/23 Source: Developed by Drs. Colby Mariano, Cindy Baez, Jose Luis Gonzalez and colleagues, with an educational vinicio from [employer]. KAYLA-7 Assessment Billing KAYLA-7 Assessment Tool: KAYLA-7 Assessment 62391 Physical exam (Primary Care) Vital Signs: Last Vital Signs Pulse 76 12/05/23 12:34 BP 138/78 12/05/23 12:34 Pulse Ox 98 12/05/23 12:34 Oxygen Delivery Method Room Air 12/05/23 12:34 BMI result Body Mass Index 31.8 Tobacco/Smoking Status: Tobacco use Status Tobacco use date assessed 08/11/23 12/05/23 12:35 Patient Tobacco Use Status Former Tobacco user 12/05/23 12:35 Tobacco use type Cigarette 12/05/23 12:35 e-Cigarette/Vaping Use Never Used 12/05/23 12:35 PHQ-9: PHQ-9 Score PHQ-9: Total score 6 12/05/23 13:00 Depression Screening Interpretation: Negative Thrive Assessment: Date of Thrive Assessment Date Thrive assessed 12/05/23 12/05/23 12:35 Const General: cooperative Neck Carotids: no bruits Resp Effort & Inspection: normal respiratory effort Auscultation: clear to auscultation bilaterally Cardio Rate: regular rate Rhythm: regular rhythm Heart sounds: S1 normal heart sound present and S2 normal heart sound present Bruits: no carotid bruits Psych Appearance: well kempt Speech and movement: Normal speech and movement present Affect: normal affect Attitude: cooperative Thought process: Normal thought process present Thought content: Normal thought content present Insight: Fair insight present (Psych) Judgement: Fair judgement present (Psych) Results AMB Hemoglobin A1c AMB Hemoglobin A1c 6.9 % Last Edit by Phu Atwood CMA on 12/05/23 13:09 Results Reviewed Results Reviewed: Laboratory Last Values Hgb A1c (Clinic) 6.9 % (4.0-6.0) H 12/05/23 13:09 Assessment and Plan Assessment & Plan (1) Carotid stenosis: Code(s): I65.29 - Occlusion and stenosis of unspecified carotid artery Plan: Referred to vascular (2) Diabetes mellitus: Code(s): E11.9 - Type 2 diabetes mellitus without complications Plan: stable currently (3) Alcoholism in remission: Code(s): F10.21 - Alcohol dependence, in remission Plan: hasnt drank since discharge (4) Obstructive sleep apnea: Code(s): G47.33 - Obstructive sleep apnea (adult) (pediatric) Plan: referred to sleep medicine (5) Fatigue: Code(s): R53.83 - Other fatigue Plan: awaiting sleep study results and plan Plan The patient agreed to the use of a medical observer for this encounter. Scribed for ANG Cross by Griselda Mario medical observer, on 12/05/2023 at 13:00 EST. Orders: Orders AMB Hemoglobin A1c Today Z13.9 - Encounter for screening, unspecified Referrals Vascular Surgery Referral I65.29 - Occlusion and stenosis of unspecified carotid artery Medications: Changed From ropinirole administer 1-3 hours before bedtime, for restless legs, cannot drink alcohol while on med 1 mg PO BEDTIME 30 days 30 tabs 1RF To ropinirole administer 1-3 hours before bedtime, for restless legs, cannot drink alcohol while on med 2 mg PO BEDTIME 30 tabs 1RF 30 days Coding Level of Care Code Est Pt Level 4 (41951) Diagnoses Carotid stenosis I65.29 Diabetes mellitus E11.9 Alcoholism in remission F10.21 Obstructive sleep apnea G47.33 Fatigue R53.83 Additional Codes KAYLA-7 Assessment Billing - KAYLA-7 Assessment Tool: KAYLA-7 Assessment 40258 ([id number])
== END 2023-12-05 13:24 | disposition home or self-care (01) ==
PROVIDERS: PCP Nurse Practitioner Family; Visit Provider Nurse Practitioner Family
DX: E11.9 Type 2 diabetes mellitus without complications (principal); F10.21 Alcohol dependence, in remission; I65.29 Occlusion and stenosis of unspecified carotid artery; G47.33 Obstructive sleep apnea (adult) (pediatric); R53.83 Other fatigue
CPT/HCPCS: 83036; 99214

== ENCOUNTER 2023-12-08 14:52 | Outpatient (AMB) | payer OTHER, SELFPAY ==
--- NOTE | 2023-12-08 14:58 | MHC.OFFVIS ---
Vital Signs 12/08/23 15:00 Height 5 ft 7 in Weight 203 lb BMI 31.8 BP 104/82 Blood Pressure Location Rt brachial Position Sitting Respiration 17 Pulse 75 Pulse Source Pulse Oximeter Pulse Oximetry (%) 97 Oxygen Delivery Method Room Air Intake Visit Reasons: SEBASTIAN-CONF Intake Note: Pt presents for 9 month follow up for SEBASTIAN. Pt states he had a cpap, hated it so he returned the equipment, but now his PCP insisits that he get back on it. HST done 03/03. Dough Puncher Required: No Allergies No Known Allergies [No Known Allergies*] Allergy (Verified 12/08/23 14:59) HPI Comments Details: 58y/o right handed male comes for follow up.Tremors are stable but reports excessive daytime fatigue 02/2023 -HST was c/w moderate sleep apnea AHI 18/hr and oxygen ashley 81%.he tried CPAP for 2 months but was unable to tolerate it and wants to try INSPIRE. His tremors have improved significantly since he stopped lacohol 2 yeras ago Previous history-He reports tremors all his life but has worsened in intensity and affecting his ADLs. The tremors are in his UE, LE and whole body , worse in his hands. It is more with certain positions and action. He was also a heavy alcoholic for more than 30 years, quit 2months ago. His last drink June [id number] . His father and grand father had tremors. Alcohol made his tremors better. His father was alcoholic as well. He has h/o bipolar disorder but does not remember being exposed to neuroleptics. The main activity affected are his writing, personal hygiene, drinking liquids, eating etc. He was send home from work as his employer did not feel it was safe for him to climb ladders . 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 He denies any voice or head tremors No change in speech or gait He has trouble sleeping, has snoring,frequent arousals , fatigue. [facility] Medical History Fatty liver Obstructive sleep apnea Essential and other specified forms of tremor Hypersomnolence Snoring Diabetes mellitus Alcoholic ketoacidosis Anxiety with depression Alcohol use disorder, severe, dependence Recurrent moderate major depressive disorder with anxiety Insomnia Alcohol withdrawal History of alcoholic hepatitis HTN (hypertension) Acute hepatitis Alcohol abuse with withdrawal Obesity (BMI 30-39.9) GERD without esophagitis Mixed hyperlipidemia Benign essential hypertension Surgical History History of esophagogastroduodenoscopy (EGD) H/O colonoscopy Family History Father Advanced cirrhosis of liver Alcoholic cirrhosis Substance use disorder Mother Dementia Maternal Grandfather Substance use disorder Sister Substance use disorder Maternal Grandfather Colon cancer Prostate cancer Social History Household Members: Spouse Household Members Other:: Cousin Housing: House Do you presently have visiting nurse or other home services: No Unable to assess alcohol history related to: Unknown Alcohol intake: current Alcohol intake frequency: 3 or more drinks per day Alcohol type: beer, wine and hard liquor Patient Tobacco Use Status: Former Tobacco user Tobacco use type: Cigarette Years Smoked: quit 10 years ago e-Cigarette/Vaping Use: Never Used Second Hand Smoke Exposure: No Substance Use Type: Crack/Cocaine Advance Directives Date on File: 10/23/21 service: No Current occupational status: 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 Physical Exam Vital Signs: Last Vital Signs Pulse 75 12/08/23 15:00 Resp 17 12/08/23 15:00 BP 104/82 12/08/23 15:00 Pulse Ox 97 12/08/23 15:00 Oxygen Delivery Method Room Air 12/08/23 15:00 BMI result Body Mass Index 31.8 Const General: cooperative, healthy appearing and anxious Nutritional Appearance: overweight Orientation/consciousness: patient oriented x3 Limitations: no limitations Eyes Pupils: Equal, round and reactive pupils present Neuro Other: Mallampatti grade 4 No tremors General: patient oriented x3, gait normal, tone normal and moves all extremities Cranial nerves: Yes Facial sensation intact/muscles of mastication intact, Yes Equal, round and reactive pupils present, Yes Bilaterally intact EOM present, Yes Nystagmus not present, Yes Normal facial strength present, Yes Midline tongue present, Yes Symmetric palate elevation present and Yes Ability to bilaterally elevate shoulders present Cognition (Neuro): normal cognition Gait exam (Neuro): Normal gait present Motor exam (neuro): 5 motor strength present throughout and Normal motor muscle tone present throughout Coordination: [id number] test normal Psych Affect: Anxious affect present Assessment & Plan Assessment & Plan (1) Obstructive sleep apnea: Code(s): G47.33 - Obstructive sleep apnea (adult) (pediatric) Category: Medical (2) Essential and other specified forms of tremor: Comment: familial tremors-stable and mild Code(s): G25.0 - Essential tremor; G25.2 - Other specified forms of tremor Category: Medical Plan will refer him to ENT- for DISE evaluation to see if he will be a candidate for INSPIRE . High dose of quetiapine is likely worsening his tremors- consider tapering Orders: Referrals Ear/Nose/Throat Referral G47.33 - Obstructive sleep apnea (adult) (pediatric) Coding Level of Care Code Est Pt Level 4 (44062) Diagnoses Obstructive sleep apnea G47.33 Essential and other specified forms of tremor G25.0; G25.2
[2023-12-08 15:00] VITALS: BP 104/82; PULSE 75; RESP 17; O2SAT 97; BMI 31.8
== END 2023-12-08 15:19 | disposition home or self-care (01) ==
PROVIDERS: PCP Nurse Practitioner Family; Visit Provider Psychiatry & Neurology Neurology
DX: G47.33 Obstructive sleep apnea (adult) (pediatric) (principal); G25.0 Essential tremor; G25.2 Other specified forms of tremor
CPT/HCPCS: 99214

== ENCOUNTER → 2023-12-08 14:52 | Outpatient (BNVA) | payer OTHER, SELFPAY | PROVIDERS: PCP Nurse Practitioner Family; Visit Provider Psychiatry & Neurology Neurology ==

== ENCOUNTER 2024-02-16 08:36 | Outpatient (AMB) | payer OTHER, SELFPAY ==
[2024-02-16 08:48] VITALS: BP 110/78; PULSE 72; O2SAT 97
--- NOTE | 2024-02-16 08:48 | AM.OFFWIN_ITS ---
Intake Vital Signs 02/16/24 08:48 Weight 203 lb BP 110/78 Blood Pressure Location Rt brachial Position Sitting Pulse 72 Pulse Source Pulse Oximeter Pulse Oximetry (%) 97 Oxygen Delivery Method Room Air Intake Visit Reasons: EP pull a muscle on his back the RT side Intake Note: Patient here for right shoulder and back pain. Patient Tobacco Use Status: Former Tobacco user Allergies No Known Allergies [No Known Allergies*] Allergy (Verified 02/16/24 08:49) Do you need a note to return to daycare/school/sports/work: Yes HPI EP pull a muscle on his back the RT side HPI Details This note is constructed using voice recognition software. While every effort has been made to ensure accuracy, otm consultant errors may have been included. The patient is a 58 year old male who presents to the clinic today with right- sided back pain after an injury at work yesterday. 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 He felt pain in the right upper back, all the way down to the right lower back. He took some acetaminophen which did not seem to help much. He reports that he had a difficult time sleeping last night due to the pain. He has not tried anything else to relieve the pain. He denies numbness and tingling in his hands and feet, or reduced range of motion. He reports ibuprofen gives him GI side effects. [facility] Medical History Fatty liver Obstructive sleep apnea Essential and other specified forms of tremor Hypersomnolence Snoring Diabetes mellitus Alcoholic ketoacidosis Anxiety with depression Alcohol use disorder, severe, dependence Recurrent moderate major depressive disorder with anxiety Insomnia Alcohol withdrawal History of alcoholic hepatitis HTN (hypertension) Acute hepatitis Alcohol abuse with withdrawal Obesity (BMI 30-39.9) GERD without esophagitis Mixed hyperlipidemia Benign essential hypertension Surgical History History of esophagogastroduodenoscopy (EGD) H/O colonoscopy Family History Father Advanced cirrhosis of liver Alcoholic cirrhosis Substance use disorder Mother Dementia Maternal Grandfather Substance use disorder Sister Substance use disorder Maternal Grandfather Colon cancer Prostate cancer Social History Household Members: Spouse Household Members Other:: Cousin Housing: House Do you presently have visiting nurse or other home services: No Unable to assess alcohol history related to: Unknown Alcohol intake: current Alcohol intake frequency: 3 or more drinks per day Alcohol type: beer, wine and hard liquor Patient Tobacco Use Status: Former Tobacco user Tobacco use type: Cigarette Years Smoked: quit 10 years ago e-Cigarette/Vaping Use: Never Used Second Hand Smoke Exposure: No Substance Use Type: Crack/Cocaine Advance Directives Date on File: 10/23/21 service: No Current occupational status: 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 Review of Systems Const All systems reviewed & are unremarkable except as noted in HPI and below Physical Exam Vital Signs: Last Vital Signs Pulse 72 02/16/24 08:48 BP 110/78 02/16/24 08:48 Pulse Ox 97 02/16/24 08:48 Oxygen Delivery Method Room Air 02/16/24 08:48 Const General: cooperative, healthy appearing, comfortable, no acute distress and well developed Orientation/consciousness: patient oriented x3 Limitations: no limitations Resp Effort & Inspection: normal respiratory effort and able to speak in complete sentences Auscultation: clear to auscultation bilaterally Cardio Rate: regular rate Rhythm: regular rhythm Heart sounds: normal S1 and S2 General: Yes no CVA tenderness Back/Spine/Pelvis Other: TTP right trapezius and lumbar region with increased muscle bulking. Shoulder, elbow, neck, spine full range of motion, no step-offs. No erythema, warmth, ecchymosis. Strength 5/5. Distal neurovascular exam intact. Back: no CVA tenderness Skin General skin exam: no rashes or lesions noted Neuro General: patient oriented x3 Extrem General: Yes normal to inspection Assessment & Plan Assessment & Plan (1) Muscle spasm: Code(s): M62.838 - Other muscle spasm Plan: History and physical examination consistent with muscle strain in the trapezius and lumbar region on the right. Prednisone ordered for anti-inflammatory effects, as well as muscle relaxer for symptomatic management. Advised heat/ ice, gentle stretches, and rest. Advised to remain out of work today and tomorrow. Advised follow up with worsening symptoms or failure to resolve. Plan See above for full details and plan. Medications: New cyclobenzaprine 10 mg PO Q8H PRN 10 tabs 0RF Muscle Spasm prednisone 40 mg (2 x 20 mg) PO DAILY 3 days 6 tabs 0RF Coding Level of Care Code Est Pt Level 3 (68276) Diagnoses Muscle spasm M62.838
== END 2024-02-16 09:02 | disposition home or self-care (01) ==
PROVIDERS: PCP Nurse Practitioner Family; Visit Provider Registered Nurse
DX: M62.838 Other muscle spasm (principal)

== ENCOUNTER → 2024-02-16 08:36 | Outpatient (BNVA) | payer OTHER, SELFPAY | PROVIDERS: PCP Nurse Practitioner Family; Visit Provider Registered Nurse | DX: M62.838 Other muscle spasm (principal) | CPT/HCPCS: 99212 ==

== ENCOUNTER 2024-02-21 11:17 | Outpatient (AMB) | payer OTHER, SELFPAY ==
--- NOTE | 2024-02-21 11:23 | A.OFFVIS_ITS ---
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 Pt states he has been feeling very lethargic the past few months. 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 This all began as a workup from hospital discharge. He had alcohol withdrawal and an intermittent headache. He subsequently underwent CT which demonstrated nearly 70% luminal narrowing of the right internal carotid. There was a question of a stroke at that time. He was subsequently discharged. He has had no interval issues. He now presents for routine evaluation regarding carotid stenosis. [facility] Medical History Fatty liver Obstructive sleep apnea Essential and other specified forms of tremor Hypersomnolence Snoring Diabetes mellitus Alcoholic ketoacidosis Anxiety with depression Alcohol use disorder, severe, dependence Recurrent moderate major depressive disorder with anxiety Insomnia Alcohol withdrawal History of alcoholic hepatitis HTN (hypertension) Acute hepatitis Alcohol abuse with withdrawal Obesity (BMI 30-39.9) GERD without esophagitis Mixed hyperlipidemia Benign essential hypertension Surgical History History of esophagogastroduodenoscopy (EGD) H/O colonoscopy Family History Father Advanced cirrhosis of liver Alcoholic cirrhosis Substance use disorder Mother Dementia Maternal Grandfather Substance use disorder Sister Substance use disorder Maternal Grandfather Colon cancer Prostate cancer Social History Household Members: Spouse Household Members Other:: Cousin Housing: House Do you presently have visiting nurse or other home services: No Unable to assess alcohol history related to: Unknown Alcohol intake: current Alcohol intake frequency: 3 or more drinks per day Alcohol type: beer, wine and hard liquor Patient Tobacco Use Status: Former Tobacco user Tobacco use type: Cigarette Years Smoked: quit 10 years ago e-Cigarette/Vaping Use: Never Used Second Hand Smoke Exposure: No Substance Use Type: Crack/Cocaine Advance Directives Date on File: 10/23/21 service: No Current occupational status: 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 Review of Systems Const All systems reviewed & are unremarkable except as noted in HPI and below Reports no additional complaints ENT Reports Normal hearing present Card Denies chest pain, Denies chest pain at rest, Denies chest pain with activity and Denies pedal edema Resp Denies cough GI Denies abdominal pain Musc Denies abnormal gait, Denies muscle cramps and Denies radiating pain into limb Skin/Breast Denies skin ulcer and Denies wounds Neuro Reports Normal hearing present and Denies abnormal gait Psych Reports no additional complaints Physical Exam Vital Signs: Last Vital Signs BP 112/80 02/21/24 11:30 BMI result Body Mass Index 31.8 Const General: cooperative, healthy appearing and comfortable Orientation/consciousness: oriented to person, oriented to place and oriented to time HEENT Head: Yes normal to inspection Neck Neck: Yes normal visual inspection Carotids: no bruits Chest Chest palpation & inspection: normal inspection of the chest Resp Effort & Inspection: normal respiratory effort and able to speak in complete sentences Auscultation: clear to auscultation bilaterally, no crackles, no rales, no rhonchi and no wheezes Cardio Rate: regular rate Rhythm: regular rhythm Heart sounds: S1 normal heart sound present and S2 normal heart sound present Bruits: no carotid bruits Peripheral pulses: Peripheral pulses 2+ throughout GI Inspection: Yes normal to inspection Skin Wounds: no wounds Hair: normal Neuro General: oriented to person, oriented to place and oriented to time Cranial nerves: Yes CN's II-XII intact bilaterally and Yes Normal hearing present Cognition (Neuro): normal cognition Motor exam (neuro): 5/5 motor strength present throughout Extrem Other: venous exam: No significant superficial varicosities or spider telangiectasias, minimal edema General: No clubbing, No cyanosis and No edema Psych Appearance: grossly normal Mental Status: mental status grossly normal Speech and movement: Normal speech and movement present Results Reviewed Results Reviewed: Carotid angiogram dated 11/14 2023 demonstrates right carotid 70% narrowing. Assessment & Plan Assessment & Plan (1) Carotid stenosis, right: Code(s): I65.21 - Occlusion and stenosis of right carotid artery Category: Medical Plan: In short patient has right carotid stenosis. He will require right carotid endarterectomy. Risks benefits complications including but not limited to bleeding infection stroke and were discussed in detail with the patient. He understood and consented. In addition he will require cardiac risk stratification prior to surgery. Thank you for allowing us to assist in his care. If there are any questions or concerns please do not hesitate to contact us. Coding Level of Care Code New Pt Level 4 (57714) Complex EM visit Add On G2211 Diagnoses Carotid stenosis, right I65.21
[2024-02-21 11:24] VITALS: BP 116/80; BMI 31.8
[2024-02-21 11:30] VITALS: BP 112/80
== END 2024-02-21 11:50 | disposition home or self-care (01) ==
PROVIDERS: PCP Nurse Practitioner Family; Visit Provider Surgery Vascular Surgery
DX: I65.21 Occlusion and stenosis of right carotid artery (principal)
CPT/HCPCS: 99204; G2211

== ENCOUNTER → 2024-02-21 11:17 | Outpatient (BNVA) | payer OTHER, SELFPAY | PROVIDERS: PCP Nurse Practitioner Family; Visit Provider Surgery Vascular Surgery | DX: I65.21 Occlusion and stenosis of right carotid artery (principal) | CPT/HCPCS: 99202 ==

== ENCOUNTER 2024-02-24 08:57 | Outpatient (AMB) | payer OTHER, SELFPAY ==
--- NOTE | 2024-02-24 08:59 | A.OFFVIS_ITS ---
Vital Signs 02/24/24 09:00 Height 5 ft 7 in Weight 207 lb 3.752 oz BMI 32.5 BP 112/74 Blood Pressure Location Lt brachial Position Sitting Pulse 73 Intake Visit Reasons: Preop/Mia/endarterectomy Intake Note: Pre-op endarerectomy on 03/12 c/o sob with exertion General Matcher Required: No Allergies No Known Allergies [No Known Allergies*] Allergy (Verified 02/21/24 11:27) Medication List - Last Reconciled 02/24/24 by Kofi Sahni MD bupropion HCl SR 200 mg PO BID cyclobenzaprine 10 mg PO Q8H PRN labetalol 300 mg PO BEDTIME 90 days losartan 25 mg PO DAILY metformin 1,000 mg PO BID 90 days pantoprazole 40 mg PO DAILY@0630 quetiapine 200 mg PO BEDTIME PRN ropinirole 3 mg PO BEDTIME 30 days rosuvastatin 40 mg PO BEDTIME tadalafil (Cialis) 5 mg PO DAILY PRN 10 days HPI Comments Details: Thank you for referring Jose Miguel in cardiology consultation today for preoperative cardiovascular risk stratification prior to carotid endarterectomy. He is a 58-year-old male with multiple risk factors including hypertension, diabetes, marked hyperlipidemia, mixed, obesity who recently came to the emergency room and a workup was noted to have significant right carotid stenosis. Then was referred to vascular surgery as planned to undergo right carotid endarterectomy. He was multiple risk factors of which lipids are not well optimized, recently started on fish oil therapy as per him although this is not listed in the chart. He is already on high-intensity statin therapy. His triglycerides have been markedly elevated above 500 multiple times in the past. He denies any smoking. Does complain of exertional shortness of breath. Has never had any cardiovascular issues including no history of cardiac interventions or prior cardiac events. Denies any other heart failure symptoms of orthopnea, PND, leg edema. Denies any prolonged palpitations. [facility] Medical History Fatty liver Obstructive sleep apnea Essential and other specified forms of tremor Hypersomnolence Snoring Diabetes mellitus Alcoholic ketoacidosis Anxiety with depression Alcohol use disorder, severe, dependence Recurrent moderate major depressive disorder with anxiety Insomnia Alcohol withdrawal History of alcoholic hepatitis HTN (hypertension) Acute hepatitis Alcohol abuse with withdrawal Obesity (BMI 30-39.9) GERD without esophagitis Mixed hyperlipidemia Benign essential hypertension Surgical History History of esophagogastroduodenoscopy (EGD) H/O colonoscopy Family History Father Advanced cirrhosis of liver Alcoholic cirrhosis Substance use disorder Mother Dementia Maternal Grandfather Substance use disorder Sister Substance use disorder Maternal Grandfather Colon cancer Prostate cancer Social History Household Members: Spouse Household Members Other:: Cousin Housing: House Do you presently have visiting nurse or other home services: No Unable to assess alcohol history related to: Unknown Alcohol intake: current Alcohol intake frequency: 3 or more drinks per day Alcohol type: beer, wine and hard liquor Patient Tobacco Use Status: Former Tobacco user Tobacco use type: Cigarette Years Smoked: quit 10 years ago e-Cigarette/Vaping Use: Never Used Second Hand Smoke Exposure: No Substance Use Type: Crack/Cocaine Advance Directives Date on File: 10/23/21 service: No Current occupational status: 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 Review of Systems Const Denies chills, Denies daytime sleepiness, Denies fatigue, Denies fever(s), Denies frequent falls, Denies poor appetite, Denies snoring, Denies stops breathing during sleep, Denies weakness, Denies weight gain and Denies weight loss Eyes Denies loss of vision ENT Denies dizziness and Denies hearing loss Card Denies chest pain, Denies claudication, Denies leg edema, Denies lightheadedness, Denies palpitations, Reports dyspnea, Denies dyspnea on exertion and Denies orthopnea Resp Denies cough, Denies excessive phlegm production, Reports dyspnea, Denies dyspnea on exertion, Denies snoring and Denies wheezing GI Denies abdominal pain, Denies hematochezia, Denies change in bowel habits, Maged es nausea and Denies vomiting Denies dysuria and Denies urinary frequency Musc Denies arthralgias, Denies muscle weakness, Denies numbness and Denies other (frequent falls) Skin/Breast Denies nail changes and Denies rash Neuro Denies Abnormal speech present, Denies dizziness, Denies frequent falls, Denies loss of vision, Denies memory loss, Denies numbness and Denies weakness Psych Denies depression and Denies memory loss Endo Denies fatigue and Denies palpitations Santo/Lymph Reports easy bruising and Reports other (anemia) Aller/Immun Denies wheezing Physical Exam Vital Signs: Last Vital Signs Pulse 73 02/24/24 09:00 BP 112/74 02/24/24 09:00 BMI result Body Mass Index 32.5 Const General: cooperative, comfortable, no acute distress, alert, awake and poor hygiene Nutritional Appearance: obese Orientation/consciousness: patient oriented x3 Limitations: no limitations HEENT Head: Yes normocephalic and Yes atraumatic Neck Neck: Yes trachea midline, Yes supple and Yes no JVD Resp Effort & Inspection: normal respiratory effort Auscultation: clear to auscultation bilaterally and diminished lung sounds Cardio Jugular venous distension: no JVD Palpation: normal PMI Rate: regular rate Rhythm: regular rhythm Heart sounds: S1 normal heart sound present, S2 normal heart sound present, no click, no gallops, no murmurs and no rubs GI Inspection: Yes obesity Auscultation: normal bowel sounds Skin General skin exam: no rashes or lesions noted Neuro General: patient oriented x3 and no focal motor deficits Speech: No Abnormal speech present Extrem General: Yes no clubbing, cyanosis or edema Office Procedures EKG Details: EKG shows normal sinus rhythm with normal EKG [id number], Complete Assessment & Plan Assessment & Plan (1) Preoperative cardiovascular examination: Code(s): Z01.810 - Encounter for preprocedural cardiovascular examination Category: Medical Plan: Preoperative cardiovascular risk stratification in this middle-aged man with significant risk factors for vascular disease with right carotid stenosis to undergo intermediate risk surgery with right carotid endarterectomy under general anesthesia with symptoms exertional shortness of breath. Need to evaluate for underlying myocardial ischemia as a cause of his shortness of breath as well as an echocardiogram to evaluate for LV function to further risk stratify for perioperative cardiovascular morbidity mortality. The rationale for workup was discussed with him. Further treatment based on the findings. Would suggest exercise myocardial perfusion imaging in near future, given the shortage of radiopharmaceutical this might be a little challenge. Also suggest an echocardiogram as above. Further treatment based on finding. The testing is within reasonable limits, his risk for perioperative cardiovascular morbidity mortality is low. This was discussed with him. Strongly recommend low-dose aspirin therapy as currently is not listed. Continue aggressive blood pressure control which on today's exam is well optimized. Importance of good blood pressure control was discussed. Hemoglobin A1c at 6.1% which appears to be well controlled at this point time. However I think he would benefit from GLP 1 antagonist given his atherosclerotic disease as well as diabetes, consider treatment initiation for the same as that has led to significant cardiovascular benefits. Continue aggressive lipid modification. I do not see his treatment with fish oil although he said he was started 6 weeks ago. Follow-up lipid panel in 2 months time to assess for triglycerides goal should be less than 200 mg/dL. If not well controlled, would consider adding Vascepa to his regimen. Continue high-intensity statin therapy. Target goal LDL closer to 60 mg/dL. Will follow him on as-needed basis. Thank you for allowing me to partake in his care Coding Level of Care Code New Pt Level 4 (49245) Complex EM visit Add On G2211 Diagnoses Preoperative cardiovascular examination Z01.810 CPT Codes EKG - CPT: 31482-[id number], Complete ([id number])
[2024-02-24 09:00] VITALS: BP 112/74; PULSE 73; BMI 32.5
== END 2024-02-24 09:26 | disposition home or self-care (01) ==
PROVIDERS: PCP Nurse Practitioner Family; Visit Provider Internal Medicine Cardiovascular Disease
DX: Z01.810 Encounter for preprocedural cardiovascular examination (principal)
CPT/HCPCS: 93010; 93306; 99214; G2211

== ENCOUNTER → 2024-02-24 08:57 | Outpatient (BNVA) | payer OTHER, SELFPAY | PROVIDERS: PCP Nurse Practitioner Family; Visit Provider Internal Medicine Cardiovascular Disease | DX: Z01.810 Encounter for preprocedural cardiovascular examination (principal) | CPT/HCPCS: 93005; 99212 ==

== ENCOUNTER → 2024-02-24 13:46 | Outpatient (REF) | payer OTHER, SELFPAY ==
--- NOTE | 2024-02-24 13:55 | CA_ITS ---
Transthoracic Echocardiogram Patient (Last, First, Middle): Jose Miguel Juan E Gender: Male Date of : 1965 Age: 58 Procedure Date: 02/24/2024 Procedure Type: Transthoracic Echocardiogram Location: OP Height: 170.18 cm Weight: 90.72 kg BSA: 2.02 m2 Heart Rate: bpm BP: 12 / 70 mmHg Order Control Clerk Blood Bank: Referring MD: Kofi Sahni MD Symptoms: Z01.810 - Encounter for preprocedural cardiovascular examination Study Quality: Good ECG Rhythm: Sinus Conclusions: - Normal left ventricular size and systolic function. There is mildly increased left ventricular wall thickness. The visually estimated ejection fraction is between 55-60%. There is no evidence of regional wall motion abnormalities. Diastolic function is normal for age. - Normal right ventricular cavity size and systolic function. - There is mild dilatation of the ascending aorta measuring 3.50 cm. Findings Left Ventricle Normal left ventricular size and systolic function. There is mildly increased left ventricular wall thickness. The visually estimated ejection fraction is between 55-60%. There is no evidence of regional wall motion abnormalities. Diastolic function is normal for age. Right Ventricle Normal right ventricular cavity size and systolic function. Atria The left atrium is normal in size. Aortic Valve Normal aortic valve structure and function. There is no aortic valve stenosis. There is no aortic valve regurgitation. Mitral Valve The mitral valve appears normal. There is no mitral valve regurgitation. There is no mitral valve stenosis. Pulmonic Valve The pulmonic valve is likely normal. Tricuspid Valve Normal tricuspid valve structure. There is no tricuspid valve regurgitation. Normal right atrial pressure. There is no evidence of pulmonary hypertension. Great Vessels There is mild dilatation of the ascending aorta measuring 3.50 cm. Venous The inferior vena cava is normal in size and collapses greater than 50% with inspiration. Pericardium/Pleural There is no evidence of pericardial effusion. Prior Study Comparison No prior study available for comparison. Measurements 2D Linear Measurements IVSd: 1.53 0.6-0.9/0.6-1.0 cm LVIDd: 4.32 3.9-5.3/4.2-5.9 cm LVIDd Index: 2.14 2.4-3.2/2.2-3.1 cm/m2 LVIDs: 2.55 2.0-3.6 cm LVPWd: 1.24 0.7-1.1 cm Ao Root: 3.80 2.1-3.5 cm LA Diam: 4.00 2.7-3.8/3.0-4.0 cm LAIDs Index: 1.98 1.5-2.3 cm/m2 LV Mass: 286.81 67-162/88-224 g LV Mass Index: 141.99 43-95/49-115 g/m2 LVOT Diam: 2.50 3.0+(-)1.3 cm Mitral Valve MV Pk E: 0.52 MV PK A: 1.07 MV Decel Time: 162.00 E/A: 0.50 E'Lateral: 7.29 E'Medial: 4.46 E/E' Med: 11.70 E/E' Lat: 7.10 PHT: 48.00 MVA PHT: 4.58 Decel Pleasants: 3.21 Aortic Valve AoV Pk Donald: 1.12 AoV Mn Donald: 0.75 AoV VTI: 0.24 AoV Pk Grad: 5.00 Aov Mn Grad: 3.00 ISHAN Cont.VTI: 4.73 LVOT LVOT Pk Donald: 1.03 LVOT Mn Donald: 0.68 LVOT VTI: 0.23 LVOT Pk Grad: 4.00 LVOT Mn Grad: 2.00 LVOT Diam: 2.50 LVOT Area: 4.91 Diastolic Function MV Pk E: 0.52 MV Pk A: 1.07 E/A: 0.50 E'Medial: 4.46 E/E' Med: 11.70 E' Laterial: 7.29 E/E' Lat: 7.10 Right Ventricle TAPSE (mm): 25.00 TVS' Donald: 12.00 Tricuspid Valve TR Pk Donald: 1.58 TR Pk Grad: 10.00 RA Press: 3.00 RVSP: 13.00 Great Vessels Aorta Ao Root-2D: 3.80 2.0-3.7 cm Ao Asc: 3.50 2.1-3.4 cm Pulmonary Valve PV Pk Donald: 1.02 Peak PV Grad: 4.00 Updated in Other Vendor System with Status of Final Bahman Chavira MD electronically signed on 02/26/2024 8:11:41 PM with status of Final
== END ==
LOC: HO.CARD 13:46
PROVIDERS: PCP Nurse Practitioner Family; Visit Provider Internal Medicine Cardiovascular Disease
DX: Z01.810 Encounter for preprocedural cardiovascular examination (principal)
CPT/HCPCS: 93306

== ENCOUNTER 2024-02-27 11:02 | Emergency (ER) | payer OTHER, SELFPAY ==
[2024-02-27 11:11] VITALS: BP 152/103; PULSE 102; RESP 18; TEMP 36.3; O2SAT 98; BMI 31.3
[2024-02-27 11:30] LABS: MANUAL DIFF FLAG NO
[2024-02-27 11:33] LABS: Basophils Absolute Auto 0.1 X10*3/uL (0.0-0.2); Basophils Percent Auto 0.7 % (0-2); Eosinophils Absolute Auto 0.2 X10*3/uL (0.0-0.4); Hematocrit 43.9 % (42.0-52.0); Hemoglobin 15.5 g/dl (14.0-18.0); Imm Gran Abs Auto 0.03 X10*3/uL (0.00-0.03); Imm Gran Pct Auto 0.4 % (0.0-0.4); Lymphocytes Absolute Auto 2.6 X10*3/uL (1.2-4.9); Lymphocytes Percent Auto 30.9 % (20-40); Mean Corpuscular HGB Conc 35.3 g/dl (31.0-36.0); Mean Corpuscular Hemoglobin 29.6 pg (27.0-33.0); Mean Corpuscular Volume 83.8 fL (80.0-98.0); Mean Platelet Volume 8.8 fL (9.4-12.4); Monocytes Absolute Auto 0.4 X10*3/uL (0.1-1.2); Monocytes Percent Auto 4.6 % (2-11); Neutrophils Absolute Auto 5.2 x10*3/uL (2.0-8.3); Neutrophils Percent Auto 61.4 % (45-73); Platelet Count 290 X10*3/uL (160-400); Red Blood Count 5.24 X10*6/uL (4.60-5.80); Red Cell Distribution Width 12.3 % (11.0-16.0); White Blood Count 8.4 X10*3/uL (4.8-10.8)
[2024-02-27 11:52] LABS: Alanine Aminotransferase 196 U/L (0-40); Albumin Level 4.8 g/dL (3.5-5.0); Alkaline Phosphatase 82 U/L (39-117); Anion Gap 13 (12-20); Aspartate Amino Transferase 110 U/L (5-37); Bilirubin Total 0.5 mg/dL (0.0-1.0); Blood Urea Nitrogen 15 mg/dL (9-16); Carbon Dioxide 28 mmol/L (22-29); Chloride 98 mmol/L (96-108); Estimated Glomerular Filt Rate > 60; Ethanol 273 mg/dL; Glucose Random 449 mg/dL (60-115); Potassium 4.1 mmol/L (3.3-5.1); Sodium 135 mmol/L (135-145); Total Protein 7.8 g/dL (6.5-8.0)
--- NOTE | 2024-02-27 12:00 | MHC.EDTECH ---
Patient was changed over with security. Patients belongings were put into the closet in the sis port on shelf 4.
[2024-02-27] MEDS: LORazepam 1 MG TABLET 2 MG PO (12:41)
[2024-02-27 12:42] LABS: Lipase 41 U/L (8-78); Magnesium 2.2 mg/dL (1.6-2.6)
[2024-02-27 12:49] LABS: Glucose, Whole Blood 366 mg/dL (60-115)
[2024-02-27 13:32] LABS: Salicylate < 5.0 mg/dL (15-30)
[2024-02-27] MEDS: 0.9 % Sodium Chloride 1,000 ML 999 ML IV (14:25)
--- NOTE | 2024-02-27 15:51 | ED_ITS ---
HPI - General Adult General Chief complaint: Psychiatric Symptoms Stated complaint: Withdrawls Time Seen by Provider: 02/27/24 11:57 Source: patient, RN notes reviewed and old records reviewed Mode of arrival: ambulatory History of Present Illness ED Provider: Ester Burroughs PA-C [facility] narrative: 58-year-old male with a past medical history of SEBASTIAN, diabetes, anxiety, depression, ETOH use disorder, HTN, GERD, HLD, presenting to the ED complaining of ETOH dependence, requesting detox, and suicidal ideations without plan. States last drink was around 09:00AM. Admits to drinking daily to the point of passing out , cannot quantify. Denies other illicit substances. Denies auditory/visual hallucinations, HI, CP/SOB, abdominal pain, nausea/vomiting. Related Data Home Medications ?Medication ?Instructions ?Recorded ?Confirmed quetiapine 100 mg tablet 200 mg PO BEDTIME PRN anxiety 03/08/23 02/24/24 bupropion HCl 200 mg tablet,12 hr 200 mg PO BID 11/14/23 02/24/24 sustained-release losartan 25 mg tablet 25 mg PO DAILY 11/14/23 02/24/24 Previous Rx's ?Medication ?Instructions ?Recorded metformin 1,000 mg tablet 1,000 mg PO BID 90 days #180 tabs 08/11/23 pantoprazole 40 mg tablet,delayed 40 mg PO DAILY@0630 #90 tabs 11/23/23 release labetalol 300 mg tablet 300 mg PO BEDTIME 90 days #90 tabs 01/01/24 rosuvastatin 40 mg tablet 40 mg PO BEDTIME #30 tabs 01/01/24 tadalafil 5 mg tablet (Cialis) 5 mg PO DAILY PRN sexual activity 01/01/24 10 days #10 tabs ropinirole 3 mg tablet 3 mg PO BEDTIME 30 days #30 tabs 01/03/24 cyclobenzaprine 10 mg tablet 10 mg PO Q8H PRN Muscle Spasm #10 02/16/24 tabs Allergies Allergy/AdvReac Type Severity Reaction Status Date / Time No Known Allergies Allergy Verified 02/27/24 11:13 [No Known Allergies*] Review of Systems 2 Review of Systems: Yes all other systems are reviewed and are negative Constitutional: Constitutional: Reports as per [facility] Past Medical History Attestation statement: The following information was validated with the patient. Source: old records reviewed Medical History Fatty liver Obstructive sleep apnea Essential and other specified forms of tremor Hypersomnolence Snoring Diabetes mellitus Alcoholic ketoacidosis Anxiety with depression Alcohol use disorder, severe, dependence Recurrent moderate major depressive disorder with anxiety Insomnia Alcohol withdrawal History of alcoholic hepatitis HTN (hypertension) Acute hepatitis Alcohol abuse with withdrawal Obesity (BMI 30-39.9) GERD without esophagitis Mixed hyperlipidemia Benign essential hypertension Surgical History History of esophagogastroduodenoscopy (EGD) H/O colonoscopy Family History Family History Father Advanced cirrhosis of liver Alcoholic cirrhosis Substance use disorder Mother Dementia Maternal Grandfather Substance use disorder Sister Substance use disorder Maternal Grandfather Colon cancer Prostate cancer Social History Social History Household Members: Spouse Household Members Other:: Cousin Housing: House Do you presently have visiting nurse or other home services: No Unable to assess alcohol history related to: Unknown Alcohol intake: current Alcohol intake frequency: 3 or more drinks per day Alcohol type: beer, wine and hard liquor Patient Tobacco Use Status: Former Tobacco user Tobacco use type: Cigarette Years Smoked: quit 10 years ago e-Cigarette/Vaping Use: Never Used Second Hand Smoke Exposure: No Substance Use Type: Crack/Cocaine Advance Directives: Yes Advance Directives on File: Yes Advance Directives Date on File: 10/23/21 Do you have a plan to hurt others: No Plan service: No Current occupational status: 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 Physical Exam ED Vital Signs: Vital Signs - 24 hr 02/27/24 11:11 Temperature 97.3 F Pulse Rate 102 H Respiratory Rate 18 Blood Pressure 152/103 H Pulse Oximetry 98 Oxygen Delivery Method Room Air BMI result Body Mass Index 31.3 Const General: cooperative, healthy appearing and no acute distress Orientation/consciousness: patient oriented x3 Limitations: no limitations HENMT Head: Yes normal to inspection and Yes atraumatic Ears: hearing grossly normal bilaterally General nose exam: Normal external nose present Face and sinus: Yes normal facial exam Eyes General: appearance normal, both eyes and all related structures EOM: EOMs intact bilaterally Neck Neck: Yes normal visual inspection and Yes no meningeal signs Resp Effort & Inspection: normal respiratory effort and no respiratory distress Auscultation: clear to auscultation bilaterally Cardio Rate: regular rate Heart sounds: S1 normal heart sound present and S2 normal heart sound present GI Inspection: Yes normal to inspection Palpation (GI): Soft to palpation, nontender, no guarding and not rigid Skin Rashes: no rashes Wounds: no wounds Neuro Other: No tongue fasciculations or tremors General: patient oriented x3, gait normal, tone normal, moves all extremities and no meningeal signs Cranial nerves: Yes CN's II-XII intact bilaterally Gait exam (Neuro): Normal gait present Extrem General: Yes normal to inspection Psych Thought content: Suicidality present and no homicidality Course Course Course Narrative: -1412--POC 449 > no anion gap. Will give 1 L IVF and repeat -ethanol 273 > physician observation initiated at 16:15 as patient needs more time to be evaluated by CARE team -1712--repeat POC to 60. Patient medically cleared -1630--ED care transferred to [facility] CARE team eval Medications Administered Generic Name Dose Route Start Last Admin Trade Name Freq PRN Reason Stop Dose Admin Lorazepam 2 mg 02/27/24 12:17 02/27/24 12:41 Lorazepam 1 Mg Tablet PO 2 mg Q4H PRN Administration Alcohol Withdrawal Discontinued Medications Generic Name Dose Route Start Last Admin Trade Name Freq PRN Reason Stop Dose Admin Sodium Chloride 1,000 mls @ 999 mls/hr 02/27/24 13:30 02/27/24 16:27 Ns IV 02/27/24 14:30 Infused .Q1H1M [facility] Infusion Medical Decision Making Medical Decision Making [facility] Narrative: 58-year-old male with a past medical history of SEBASTIAN, diabetes, anxiety, depression, ETOH use disorder, HTN, GERD, HLD, presenting to the ED complaining of ETOH dependence, requesting detox, and suicidal ideations without plan. On exam hypertensive, tachycardic, suicidal, no evidence of ETOH withdrawal at this time. Concern for ETOH dependence and suicidality. Rule out metabolic abnormalities. Low suspicion for severe sepsis or infectious etiology at this time Plan: Labs, tox screen, CARE team consult, CIWA scoring, p.r.n. Ativan Please refer to course for remaining clinical decision making, interpretation of labs/imaging results, and discussions with consultants and/or family members. Differential Diagnosis Differential Diagnoses: The differential diagnosis associated with the presentation includes As above Admission/Observation Consideration of admission/observation: Escalation of care including admission/observation considered Consult Healthcare Provider Management of the patient was discussed with: Behavioral Health Provider Lab Data MDM Lab Attestation statement: I reviewed the patient's lab results. 02/27/24 11:25 02/27/24 11:25 Labs: Lab Results 02/27/24 02/27/24 02/27/24 Range/Units 11:25 12:44 12:55 WBC 8.4 (4.8-10.8) X10*3/uL RBC 5.24 (4.60-5.80) X10*6/uL Hgb 15.5 (14.0-18.0) g/dl Hct 43.9 (42.0-52.0) % MCV 83.8 (80.0-98.0) fL MCH 29.6 (27.0-33.0) pg MCHC 35.3 (31.0-36.0) g/dl RDW 12.3 (11.0-16.0) % Plt Count 290 D (160-400) X10*3/uL MPV 8.8 L (9.4-12.4) fL Immature Gran % (Auto) 0.4 (0.0-0.4) % Neut % (Auto) 61.4 (45-73) % Lymph % (Auto) 30.9 (20-40) % Stokes % (Auto) 4.6 (2-11) % Eos % (Auto) 2.0 (0-4) % Baso % (Auto) 0.7 (0-2) % Lymph # (Auto) 2.6 (1.2-4.9) X10*3/uL Stokes # (Auto) 0.4 (0.1-1.2) X10*3/uL Eos # (Auto) 0.2 (0.0-0.4) X10*3/uL Baso # (Auto) 0.1 (0.0-0.2) X10*3/uL Abs Immat Gran (auto) 0.03 (0.00-0.03) X10*3/uL Absolute Neuts (auto) 5.2 (2.0-8.3) x10*3/uL Absolute Nucleated RBC 0.000 (0.0-0.012) X10*3/uL Nucleated RBC % (auto) 0.0 (0.0-0.2) /100WBC Sodium 135 (135-145) mmol/L Potassium 4.1 (3.3-5.1) mmol/L Chloride 98 (96-108) mmol/L Carbon Dioxide 28 (22-29) mmol/L Anion Gap 13 (12-20) BUN 15 (9-16) mg/dL Creatinine 1.15 (0.5-1.4) mg/dL Estim Creat Clear Calc 77.0 Estimated GFR > 60 POC Glucose 366 H* (60-115) mg/dL Random Glucose 449 H* (60-115) mg/dL Calcium 9.0 D (8.4-10.2) mg/dL Magnesium 2.2 (1.6-2.6) mg/dL Total Bilirubin 0.5 (0.0-1.0) mg/dL AST 110 H (5-37) U/L ALT 196 H (0-40) U/L Alkaline Phosphatase 82 (39-117) U/L Total Protein 7.8 (6.5-8.0) g/dL Albumin 4.8 (3.5-5.0) g/dL Lipase 41 (8-78) U/L Salicylates < 5.0 L (15-30) mg/dL Acetaminophen Cancelled Ethyl Alcohol 273 mg/dL 02/27/24 Range/Units 16:47 WBC (4.8-10.8) X10*3/uL RBC (4.60-5.80) X10*6/uL Hgb (14.0-18.0) g/dl Hct (42.0-52.0) % MCV (80.0-98.0) fL MCH (27.0-33.0) pg MCHC (31.0-36.0) g/dl RDW (11.0-16.0) % Plt Count (160-400) X10*3/uL MPV (9.4-12.4) fL Immature Gran % (Auto) (0.0-0.4) % Neut % (Auto) (45-73) % Lymph % (Auto) (20-40) % Stokes % (Auto) (2-11) % Eos % (Auto) (0-4) % Baso % (Auto) (0-2) % Lymph # (Auto) (1.2-4.9) X10*3/uL Stokes # (Auto) (0.1-1.2) X10*3/uL Eos # (Auto) (0.0-0.4) X10*3/uL Baso # (Auto) (0.0-0.2) X10*3/uL Abs Immat Gran (auto) (0.00-0.03) X10*3/uL Absolute Neuts (auto) (2.0-8.3) x10*3/uL Absolute Nucleated RBC (0.0-0.012) X10*3/uL Nucleated RBC % (auto) (0.0-0.2) /100WBC Sodium (135-145) mmol/L Potassium (3.3-5.1) mmol/L Chloride (96-108) mmol/L Carbon Dioxide (22-29) mmol/L Anion Gap (12-20) BUN (9-16) mg/dL Creatinine (0.5-1.4) mg/dL Estim Creat Clear Calc Estimated GFR POC Glucose 260 H (60-115) mg/dL Random Glucose (60-115) mg/dL Calcium (8.4-10.2) mg/dL Magnesium (1.6-2.6) mg/dL Total Bilirubin (0.0-1.0) mg/dL AST (5-37) U/L ALT (0-40) U/L Alkaline Phosphatase (39-117) U/L Total Protein (6.5-8.0) g/dL Albumin (3.5-5.0) g/dL Lipase (8-78) U/L Salicylates (15-30) mg/dL Acetaminophen Ethyl Alcohol mg/dL Radiology Impression Discussion of test interpretation with radiology: I have reviewed the radiologist's reading. External Record Review External record reviewed: Inpatient record, Office record, Outpatient record, Prior outpatient labs, Prior outpatient radiology, Primary care record and Outside ED record Tests considered The following testing was considered but not selected: As above Social Determinants Patient?s care significantly limited by Social Determinants of Health including: Alcoholism and drug addiction in family, Problems related to primary support group and Other Social Determinant of Health Discharge Plan Discharge Clinical Impression: Alcohol dependence, Acute hyperglycemia Patient Disposition: Still a Patient Prescriptions: No Action pantoprazole 40 mg tablet,delayed release (DR/EC) 40 mg PO DAILY@0630 Qty: 90 1RF rosuvastatin 40 mg tablet 40 mg PO BEDTIME Qty: 30 2RF labetalol 300 mg tablet 300 mg PO BEDTIME 90 Days Qty: 90 1RF tadalafil [Cialis] 5 mg tablet 5 mg PO DAILY PRN (Reason: sexual activity) 10 Days Qty: 10 2RF Rx Instructions: administer approximately 30min before sexual activity; do not use more than 1 dose per 24hrs ropinirole 3 mg tablet 3 mg PO BEDTIME 30 Days Qty: 30 1RF Rx Instructions: administer 1-3 hours before bedtime, for restless legs, cannot drink alcohol while on med bupropion HCl 200 mg tablet sustained-release 12 hr 200 mg PO BID losartan 25 mg tablet 25 mg PO DAILY metformin 1,000 mg tablet 1,000 mg PO BID 90 Days Qty: 180 1RF quetiapine 100 mg tablet 200 mg PO BEDTIME PRN (Reason: anxiety) cyclobenzaprine 10 mg tablet 10 mg PO Q8H PRN (Reason: Muscle Spasm) Qty: 10 0RF Interventions: [place]-Suicide Risk Severity Scale Last Done: 02/27/24 12:38 Print Language: Japanese
[2024-02-27 16:53] LABS: Glucose, Whole Blood 260 mg/dL (60-115)
[2024-02-27 17:15] VITALS: BP 156/94; PULSE 109; RESP 16; TEMP 37.2; O2SAT 98
[2024-02-27 17:39] LABS: Amphetamine Screen Urine Not Detected (Not Detect); Barbiturates, Urine Not Detected (Not Detect); Benzodiazepines Screen Urine Not Detected (Not Detect); Buprenorphine Scr Not Detected (Not Detect); Cannabinoid Screen Urine POSITIVE (Not Detect); Cocaine Screen Urine Not Detected (Not Detect); Fentanyl, urine Not Detected (Not Detect); Methadone Screen, Urine Not Detected (Not Detect); Opiate Screen Urine Not Detected (Not Detect); Oxycodone Screen Urine Not Detected (Not Detect); Phencyclidine Screen Urine Not Detected (Not Detect)
[2024-02-27 17:50] VITALS: BP 156/94; PULSE 109; RESP 16; TEMP 37.2; O2SAT 98
== END 2024-02-27 18:04 | disposition home or self-care (01) ==
PROVIDERS: Physician Assistant; Emergency Provider Emergency Medicine Emergency Medical Services; PCP Nurse Practitioner Family
DX: F10.20 Alcohol dependence, uncomplicated (principal); E11.65 Type 2 diabetes mellitus with hyperglycemia; R00.0 Tachycardia, unspecified; R45.851 Suicidal ideations; F41.9 Anxiety disorder, unspecified; I10 Essential (primary) hypertension; E78.5 Hyperlipidemia, unspecified; K21.9 Gastro-esophageal reflux disease without esophagitis; G47.33 Obstructive sleep apnea (adult) (pediatric); F12.90 Cannabis use, unspecified, uncomplicated; Z87.891 Personal history of nicotine dependence; Z79.84 Long term (current) use of oral hypoglycemic drugs; Z79.899 Other long term (current) drug therapy; Z79.02 Long term (current) use of antithrombotics/antiplatelets
CPT/HCPCS: 36415; 80053; 80179; 80307; 82947; 83690; 83735; 85025; 96360; 96361; 99285; S9485

== ENCOUNTER 2024-04-16 08:20 | Emergency (ER) | payer OTHER, SELFPAY ==
--- NOTE | ~2024-04-16 | XR_ITS ---
EXAMINATION: XR CHEST CLINICAL INFORMATION: cough COMPARISON: None available. TECHNIQUE: 2 views of the chest were obtained. FINDINGS: The lungs are well-expanded and clear. The heart size and pulmonary vascularity is normal. There is moderate spondylosis dorsal spine. No aggressive lytic or sclerotic process seen. XR/XR chest 2V IMPRESSION: No acute cardiopulmonary process seen. There is moderate dorsal spine spondylosis. Electronically signed by: Erik Alfaro MD 04/16/2024 09:04 AM [facility]
--- NOTE | ~2024-04-16 | CT_ITS ---
EXAMINATION: CT HEAD WITHOUT CONTRAST CLINICAL INFORMATION: Injury. Pain. COMPARISON: CTA at 11/13/[address] brain 11/13/2023. MRI brain 11/14/2023. TECHNIQUE: Contiguous axial imaging was performed from the skull base to vertex without intravenous administration of contrast. This CT examination was performed using dose optimization techniques as appropriate, variously including the following: *Automated exposure control *Adjustment of mA and/or kV according to patient size (this includes techniques or standardized protocols for targeted exams where dose is matched to indication/reason for exam; i.e. extremities or head) *Use of iterative reconstruction technique DLP 733 FINDINGS: There is no acute intra-axial, extra-axial bleed, masses or midline shift. No acute infarction in evolution. The cobos to white matter differentiation is maintained normal. The lateral ventricles are symmetrical but mildly enlarged and so are the cortical sulci in the frontal lobe. Bone windows reveal no calvarial abnormality. The paranasal sinuses and mastoid air cells are well-aerated. There is no scalp soft tissue abnormality. CT/CT head/brain wo IV con IMPRESSION: No acute intracranial process seen. No major change compared to previous study 11/13/2023 Electronically signed by: Erik Alfaro MD 04/16/2024 10:21 AM [facility]
[2024-04-16 08:26] VITALS: BP 120/78; PULSE 86; RESP 20; TEMP 36.6; O2SAT 95; BMI 31.3
--- OUTSIDE RECORDS SUMMARY | 2024-04-16 08:41 | XMS_ITS | Continuity of Care Document ---
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 Further screening to assess candidacy for the inspire hypoglossal nerve stimulator with a drug-induced sleep endoscopy was offered. This examination is performed under anesthesia to help stimulate the onset of obstructive sleep apnea events. This will be monitored with a small camera in the back of the nose. Occasionally it is determined that the pattern of collapse in their pharynx would not be helped by the inspire hypoglossal nerve stimulator implant and it is appropriate to screen for these patients to avoid unnecessary surgical procedures. Risks of this procedure beyond the anesthesia medications that are given include possible bleeding from the nose where the instruments are passed. No new prescriptions are needed after the procedure. We will review results with a telehealth call approximately 1 week after the procedure. [email or web address] Not available 01/13/2024 20:45:18 Plan of Treatment Reminders Order Date Submit Date Provider Last Modified By Organization Details Last Modified Time Details Appointments None recorded. Lab None recorded. Referral None recorded. Procedures drug-induc ed sleep endoscopy (SURG) 2023 024 [email or web address] Not available 16:39:19 Surgeries None recorded. Imaging None recorded. Medication Orders None recorded. Patient TargetsNo targets recorded. Patient InstructionsNo instructions recorded. Reason for Referral None Reported. Results Created Date Observation Date Name Description Value Unit Range Abnormal Flag Note LastModifiedBy Organization Detail LastModifiedTime 01/16/20 24 01/16/2024 sleep study , diagn ostic (PROC ) No observ ation record ed. [facility] (Medical Records) [address], [place], [address], 01/16/2024 12:21:38 Result Notes None recorded. Problems Name Problem SNOMED Code Status Onset Date Resolution Date Notes Provider Name and Address Organization Details Recorded Time Disorder of upper respirato ry system 660024468 Active 2015 Other specified diseases of upper respirator y tract; Note: Date Diagnosed: 05/23/2015 10:28 AM (J39.8) Not Available [facility] 02:39:14 Obstructi ve sleep apnea syndrome 30450188 Active 2023 DELMY SEGURA MD [address] [place] [address], [place], [address] , [place] [facility] 4 20:44:56 Tremor 74653355 Active 2023 DELMY SEGURA MD [address] [place], [place] [address]on [place],[address] [facility], [place], [address] , [place] - [facility] 4 20:45:03 Chronic insomnia 880096388 Active 2023 DELMY SEGURA MD [address] [place], [place] [address]on [place] [address], [place], [address] , [facility] - [facility] 4 12:08:03 Problem Notes None recorded. Procedures Surgical History Date Name Laterality Status Provider Name and Address Organization Details Recorded Time 01/16/2024 FOL_DP completed DELMY SEGURA MD [address] [place],[address] [facility], [place], [address], [facility] - [facility] 01/13/2024 20:44:48 Imaging Results None recorded. Procedure Notes None recorded. Medical Equipment None Reported. Medications Name Sig Start Date Stop Date Status Note LastModified by Organization Details LastModified Time primidone 50 mg tablet TAKE 2 TABS (100MG) BY MOUTH 2 TIMES A DAY FOR 30 DAYS active Not Available Not Available No t Available bupropion HCl SR 150 mg tablet,12 hr sustained- release TAKE 1 TABLET BY MOUTH TWICE A DAY TAKE 2ND DOSE LATE AFTERNOON active Not Available Not Available No t Available ropinirole 1 mg tablet TAKE 1 TABLET AT BEDTIME 1-3 HRS BEFORE BEDTIME FOR RESTLESS LEGS CANNOT DRINK ALCOHOL WHILE ON MED active Not Available Not Available No t Available quetiapine 300 mg tablet 2015 active Medicatio n ID: [id number] Du ration Value: 30 Brand Name: quetiapin e Send Method: E-Prescri bed Subs Allowed: subs OK Specia l Instructi on: TAKE 2 TABLETS BY MOUTH DAILY AT BEDTIME M edication GenericNa me: quetiapin e Not Available Not Available Not Available ropinirole 3 mg tablet TAKE 1 TABLET BY MOUTH 1-3 HOURS BEFORE BEDTIME FOR RESTLESS LEGS, CANNOT DRINK ALCOHOL WHILE ON MED active Not Available Not Available No t Available sertraline 100 mg tablet 2015 active Medicatio n ID: [id number] Du ration Value: 30 Brand Name: sertralin e Send Method: E-Prescri bed Subs Allowed: subs OK Specia l Instructi on: TAKE 1 TABLET BY MOUTH TWICE A DAY Medic ationGene ricName: sertralin e Not Available Not Available Not Available hydroxyzin e pamoate 50 mg capsule TAKE 1-2 CAPSULES BY MOUTH AT BEDTIME NEEDED FOR SLEEP active Not Available Not Available No t Available melatonin 3 mg tablet TAKE 1-3 TABLETS BY MOUTH EVERY NIGHT AT BEDTIME NEEDED FOR INSOMNIA active Not Available Not Available No t Available quetiapine 100 mg tablet TAKE 1-2 TABLET BY MOUTH AT BEDTIME NEEDED FOR ANXIETY OR INSOMNIA active Not Available Not Available No t Available bupropion HCl SR 100 mg tablet,12 hr sustained- release TAKE 1 TABLET BY MOUTH EVERY DAY IN THE MORNING active Not Available Not Available No t Available ropinirole 0.25 mg tablet TAKE 1 TABLET DAILY 1-3 HOURS BEFORE BEDTIME. FOR RESTLESS LEGS, CANNOT DRINK ALCOHOL WHILE ON MED active Not Available Not Available No t Available lorazepam 2 mg tablet TAKE 1 TABLET BY MOUTH THREE TIMES A DAY NEEDED FOR ALCOHOL WITHDRAWA L active Not Available Not Available No t Available gemfibrozi l 600 mg tablet active Medicatio n ID: [id number] Br and Name: gemfibroz il Send Method: E-Prescri bed Subs Allowed: subs OK Medica tionGener icName: gemfibroz il Not Available Not Available Not Available ropinirole 2 mg tablet TAKE 1 TABLET BY MOUTH BETWEEN 1 TO 3 HOURS BEFORE BEDTIME FOR RESTLESS LEGS. DO NOT DRINK ALCOHOL. active Not Available Not Available No t Available paroxetine 20 mg tablet TAKE 1 TABLET BY MOUTH EVERY DAY active Not Available Not Available No t Available pantoprazo le 40 mg tablet,del ayed release TAKE 1 TABLET BY MOUTH ONCE DAILY AT 6:30 AM active Not Available Not Available No t Available metformin 1,000 mg tablet TAKE 1 TABLET BY MOUTH TWICE A DAY active Not Available Not Available No t Available ropinirole 0.5 mg tablet PLEASE SEE ATTACHED FOR DETAILED DIRECTION S active Not Available Not Available No t Available clonazepam 2 mg tablet 2015 active Medicatio n ID: [id number] Du ration Value: 30 Brand Name: clonazepa m Send Method: E-Prescri bed Subs Allowed: subs OK Specia l Instructi on: TAKE 1 TABLET BY MOUTH AT BEDTIME M edication GenericNa me: clonazepa m Not Available Not Available Not Available losartan 25 mg tablet TAKE 1 TABLET BY MOUTH EVERY DAY active Not Available Not Available No t Available omeprazole 20 mg capsule,de layed release 2014 active Medicatio n ID: [id number] Du ration Value: 90 Brand Name: omeprazol e Send Method: E-Prescri bed Subs Allowed: subs OK Specia l Instructi on: TAKE ONE CAPSULE BY MOUTH TWICE A DAY Medic ationGene ricName: omeprazol e Not Available Not Available Not Available labetalol 300 mg tablet TAKE 1 TABLET BY MOUTH EVERYDAY AT BEDTIME active Not Available Not Available No t Available paroxetine 40 mg tablet TAKE 1 TABLET BY MOUTH EVERY DAY IN THE MORNING active Not Available Not Available No t Available bupropion HCl SR 200 mg tablet,12 hr sustained- release TAKE 1 TABLET BY MOUTH TWICE A DAY active Not Available Not Available No t Available rosuvastat in 20 mg tablet TAKE 1 TABLET BY MOUTH AT BEDTIME active Not Available Not Available No t Available rosuvastat in 40 mg tablet TAKE 1 TABLET BY MOUTH AT BEDTIME active Not Available Not Available No t Available tadalafil 5 mg tablet PLEASE SEE ATTACHED FOR DETAILED DIRECTION S active Not Available Not Available No t Available omega-3 acid ethyl esters 1 gram capsule TAKE 1 CAPSULE BY MOUTH TWICE A DAY FOR 30 DAYS active Not Available Not Available No t Available Vivitrol 380 mg intramuscu lar suspension ,extended release active Not Available Not Available Not Available Vitals Date Recorded Body height Body mass index (BMI) Body weight Provider Name and Address Organization Details Last Updated DateTime 01/16/2024 170.18 cm 31.3 kg/m2 84695.47 g Kelsey Ba [facility] 01/16/2024 11:48:17 Social History None recorded. Functional Status None recorded. Mental Status None recorded. Family History Nothing Reported. Medical History No medical history recorded. Past Encounters Encounter ID Performer Location Encounter Start Date Encounter Closed Date Diagnosis/Indication Diagnosis SNOMED-CT Code Diagnosis ICD10 Code Diagnosis Note DELMY SEGURA MD [facility] [address] [address] 01/16/2024 11:22:17 01/16/2024 13:49:06 Obstructive sleep apnea syndrome 74702715 G47.33 Home [facility] [place] Tremor 40051191 R25.1 Chronic insomnia 8060295 04 F51.04 I am concerned the patient may ultimately not be a good candidate for the inspire implantati on secondary to his chronic insomnia. 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 Covered Member ID Brewer Member ID Guarantor Name 01/16/2024 1 [employer] [employer] - HEALTH NET PLAN (MEDICAID HMO) JORGE Juan [id number] Jose Miguel Juan Notes Date Note Type Note Provider Name and Address Organization Details Recorded Time 01/16/2024 text/html OSAsx of daytime fatigue 02/23/2023 [place] and mixed none recordedCPAP trial intolerant after 2 months of attempt due to pain in face from mask and strapsinsomnia till 3am sometimes, if he wakes for bathroom he is able to go back to sleepstarted to use a nasal spray to breathe better out of nose at night - every night.uses energy drinks to stay awake Past history of tremors whole body improved on primidoneno prior throat surgeryHeavy alcohol consumption over 30 years, last drink was June 28, 2022 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
--- OUTSIDE RECORDS SUMMARY | 2024-04-16 08:41 | XMS_ITS ---
[facility] Name [facility] Unknown History of Medication Use Medication Directions Dispensed Refills Start Date End Date Stat labetalol (NORMODYNE) 300 MG tablet Take 300 mg by mouth 2 (two) times a day. 08/29/2022 active gemfibrozil (LOPID) 600 MG tablet Take 600 mg by mouth 2 (two) times a day. 08/29/2022 active gemfibrozil (LOPID) 600 MG tablet Take 600 mg by mouth 2 (two) times a day. 08/29/2022 active
--- OUTSIDE RECORDS SUMMARY | 2024-04-16 08:41 | XMS_ITS | Data Portability ---
Author Organization [place] - [facility], Allergy Address [address] [place] [id number] Care Team Providers Care [address] Magistrate Name Role Phone LUDY JOHNSON Primary Care [...] drug-induc ed sleep endoscopy (SURG) 2023 024 [email or web address] [id number] Not available 16:39:19 Surgeries None recorded. Imaging None recorded. Medication Orders None recorded. Patient TargetsNo targets recorded. Patient InstructionsNo instructions recorded. Reason for Referral None Reported. Results Created Date Observation Date Name Description Value Unit Range Abnormal Flag Note LastModifiedBy Organization Detail LastModifiedTime 01/16/2001/16/2024 sleep study , diagn ostic (PROC ) No observ ation record ed. [facility] (Medical Records) [address] [place], [address], 01/16/2024 12:21:38 Result Notes None recorded. Problems Name Problem SNOMED Code Status Onset Date Resolution Date Notes Provider Name and Address Organization Details Recorded Time Disorder of upper respirato ry system 025817731 Active 2015 Other specified diseases of upper respirator y tract; Note: Date Diagnosed: 05/23/2015 10:28 AM (J39.8) Not Available [facility] 02:39:14 Obstructi ve sleep apnea syndrome 73532870 Active 2023 DELMY SEGURA MD [address] [place] [address],[place] [address], [place], [phone] , [place] - [facility] 20:44:56 Tremor 05168155 Active 2023 DELMY SEGURA MD [address] [place] [address],[place] [address], [place], [address] , [place] - [facility] 20:45:03 Chronic insomnia 740304195 Active 2023 DELMY SEGURA MD [address] [place] [address],[place] [address], [place], [address] , [place] - [facility] 12:08:03 Problem Notes None recorded. Procedures Surgical History Date Name Laterality Status Provider Name and Address Organization Details Recorded Time 01/16/2024 FOL_DP completed DELMY SEGURA MD [address] [place] [address],[place] [address], [place], [phone], [facility] - [facility] 01/13/2024 20:44:48 Imaging Results Imaging Date Name Status LastModified by Organiz ation Details LastModified Time 01/16/2024 sleep study, diagnostic (PROC) completed [facility] (Medical Records) [address] [place], [address], 01/16/2024 12:21:38 Procedure Notes None recorded. Medical Equipment None [...] mg tablet 2015 active Medicatio n ID: [id number] Du ration Value: 30 Brand Name: quetiapin [...] mg tablet 2015 active Medicatio n ID: [id number] Du ration Value: 30 Brand Name: sertralin [...] 600 mg tablet active Medicatio n ID: [id number] Br and Name: kosta il Send Method: E-Prescri bed Subs Allowed: [...] mg tablet 2015 active Medicatio n ID: [id number] Du ration Value: 30 Brand Name: clonazepa [...] layed release 2014 active Medicatio n ID: [id number] Du ration Value: 90 Brand Name: omeprazol [...] Updated DateTime 01/16/2024 170.18 cm 31.3 kg/m2 11133.47 g Kelsey Ba [place] - [facility] 01/16/2024 11:48:17 Social History None recorded. Functional Status None recorded. Mental Status None recorded. Family History Nothing Reported. Medical History No medical history recorded. Past Encounters Encounter ID Performer Location Encounter Start Date Encounter Closed Date Diagnosis/Indication Diagnosis SNOMED-CT Code Diagnosis ICD10 Code Diagnosis Note DELMY SEGURA MD [facility] [address] [phone] 01/16/2024 11:22:17 01/16/2024 13:49:06 Obstructive sleep apnea syndrome 31609202 G47.33 [facility] [place] Tremor [id number] R25.1 Chronic insomnia 0937593 04 F51.04 I am concerned the patient may ultimately not be a good candidate for the inspire implantati on secondary to his chronic insomnia. Encouraged him to continue working with sleep center to get this under control Body mass index 30+ - obesity 368412685 Z68.31 Health Concerns Section Related Observation LastModified by Organization Detai ls LastModified Time None Recorded Concern Status LastModified by Organization Details LastModified Time None Recorded Advance Directives Directive None Recorded Payers Encounter Date Sequence Insurance Name Policy Number Policy Brewer Covered Member ID Brewer Member ID Guarantor Name 01/16/2024 1 [facility] PLAN (MEDICAID HMO) JORGE Juan [id number] Jose Miguel Juan Notes Date Note Type [...] was June 28, 2022 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
[2024-04-16 08:44] LABS: MANUAL DIFF FLAG NO
[2024-04-16 08:45] LABS: Basophils Percent Auto 0.6 % (0-2); Eosinophils Percent Auto 0.6 % (0-4); Hematocrit 34.6 % (42.0-52.0); Hemoglobin 12.4 g/dl (14.0-18.0); Imm Gran Abs Auto 0.02 X10*3/uL (0.00-0.03); Imm Gran Pct Auto 0.6 % (0.0-0.4); Lymphocytes Absolute Auto 0.3 X10*3/uL (1.2-4.9); Lymphocytes Percent Auto 9.8 % (20-40); Mean Corpuscular HGB Conc 35.8 g/dl (31.0-36.0); Mean Corpuscular Hemoglobin 30.3 pg (27.0-33.0); Mean Corpuscular Volume 84.6 fL (80.0-98.0); Mean Platelet Volume 8.9 fL (9.4-12.4); Monocytes Absolute Auto 0.3 X10*3/uL (0.1-1.2); Monocytes Percent Auto 8.1 % (2-11); Neutrophils Absolute Auto 2.8 x10*3/uL (2.0-8.3); Neutrophils Percent Auto 80.3 % (45-73); Red Blood Count 4.09 X10*6/uL (4.60-5.80); Red Cell Distribution Width 13.6 % (11.0-16.0); White Blood Count 3.5 X10*3/uL (4.8-10.8)
[2024-04-16 08:59] LABS: Platelet Count 126 X10*3/uL (160-400)
[2024-04-16 09:18] LABS: Alanine Aminotransferase 47 U/L (0-40); Albumin Level 4.4 g/dL (3.5-5.0); Alkaline Phosphatase 47 U/L (39-117); Anion Gap 15 (12-20); Aspartate Amino Transferase 47 U/L (5-37); Bilirubin Total 0.5 mg/dL (0.0-1.0); Blood Urea Nitrogen 8 mg/dL (9-16); Calcium 9.2 mg/dL (8.4-10.2); Carbon Dioxide 25 mmol/L (22-29); Chloride 102 mmol/L (96-108); Creatinine Clr Calc Pharmacy 98.4; Estimated Glomerular Filt Rate > 60; Glucose Random 209 mg/dL (60-115); Potassium 3.6 mmol/L (3.3-5.1); Sodium 138 mmol/L (135-145)
[2024-04-16 09:26] LABS: Influenza A PCR POSITIVE (Negative); Influenza B PCR NEGATIVE (Negative); Resp Syncy Virus RNA Qual PCR NEGATIVE (Negative); SARS COV2 PCR INHOUSE NEGATIVE (Negative)
--- NOTE | 2024-04-16 09:43 | ED_ITS ---
HPI - General Adult General Chief complaint: Headache Stated complaint: Headache Time Seen by Provider: 04/16/24 09:39 Source: patient Mode of arrival: ambulatory Limitations: no limitations History of Present Illness ED Provider: Marianna Bal PA-C HPI narrative: Patient is a 58 year old assigned male at with a history of bipolar disorder, MDD, GERD, HLD, alcohol use disorder, and DM presenting to the emergency department today with a headache on the top of his head that started after coughing. Patient states that he was coughing and developed a significant headache to the top of his head. Patient denies any dizziness, lightheadedness, abdominal pain, nausea, vomiting, fever, chills, blurry vision, double vision, loss of vision, chest pain, difficulty breathing, shortness of breath, back pain, night sweats, pain with urination, increased urinary frequency, increased urinary urgency, blood in his urine or stool, syncope or a near syncopal episode, recent trauma or falls, bowel incontinence, bladder incontinence, or any other complaints at this time. Relieving factors: none Exacerbating factors: none Associated symptoms: cough Treatments prior to arrival: none Related Data Home Medications ?Medication ?Instructions ?Recorded ?Confirmed quetiapine 100 mg tablet 200 mg PO BEDTIME PRN anxiety 03/08/23 02/28/24 bupropion HCl 200 mg tablet,12 hr 200 mg PO BID 11/14/23 02/28/24 sustained-release multivitamin 1 tab PO DAILY 02/28/24 omega 9-irf-rzr-fish oil 1,000 mg 1 cap PO BID 02/28/24 (120 mg-180 mg) capsule (Fish Oil) prednisone 20 mg tablet 20 mg PO BID 02/28/24 Previous Rx's ?Medication ?Instructions ?Recorded labetalol 300 mg tablet 300 mg PO BEDTIME 90 days #90 tabs 01/01/24 rosuvastatin 40 mg tablet 40 mg PO BEDTIME #30 tabs 01/01/24 tadalafil 5 mg tablet (Cialis) 5 mg PO DAILY PRN sexual activity 01/01/24 10 days #10 tabs ropinirole 3 mg tablet 3 mg PO BEDTIME 30 days #30 tabs 01/03/24 metformin 1,000 mg tablet 1,000 mg PO BID 90 days #180 tabs 03/26/24 pantoprazole 40 mg tablet,delayed 40 mg PO DAILY@0630 #90 tabs 04/05/24 release Allergies Allergy/AdvReac Type Severity Reaction Status Date / Time No Known Allergies Allergy Verified 04/16/24 08:28 [No Known Allergies*] Review of Systems 2 Constitutional: Constitutional: Reports no additional constitutional complaints, Denies chills, Denies fever(s), Reports headache(s) and Denies night sweats Eyes: Eyes: Reports no additional eye complaints, Denies blurry vision, Denies change in vision, Denies diplopia, Denies eye discharge, Denies loss of vision and Denies eye pain ENT: Denies dizziness and Reports headache(s) Cardiovascular: Cardiovascular: Reports no additional cardiovascular complaints, Denies chest pain, Denies lightheadedness, Denies Loss of Consciousness and Denies dyspnea Respiratory: Respiratory: Reports no additional respiratory complaints, Reports cough and Denies dyspnea Gastrointestinal: Gastrointestinal: Reports no additional gastrointestinal complaints, Denies abdominal pain, Denies melena, Denies hematochezia, Denies change in bowel habits and Denies change in stool character Genitourinary: Genitourinary: Reports no additional male genitourinary complaints, Denies hematuria, Denies oliguria, Denies difficulty urinating, Denies dysuria, Denies urinary frequency, Denies urinary hesitancy, Denies urinary incontinence and Denies urinary urgency Musculoskeletal: Musculoskeletal: Reports no additional musculoskeletal complaints, Denies numbness and Denies tingling Neurologic: Denies dizziness, Reports headache(s), Denies loss of vision, Denies numbness and Denies tingling Psychiatric: Psychiatric: Reports no additional psychiatric complaints Endocrine: Endocrine: Reports no additional endocrine complaints Hematologic/Lymphatic: Hematologic/Lymphatic: Reports no additional hematologic/lymphatic complaints Allergic/Immunologic: Allergic/Immunologic: Reports no additional allergic/immunologic complaints [facility] Past Medical History Attestation statement: The following information was validated with the patient. Source: old records reviewed and nursing notes reviewed Medical History Fatty liver Obstructive sleep apnea Essential and other specified forms of tremor Hypersomnolence Snoring Diabetes mellitus Alcoholic ketoacidosis Anxiety with depression Alcohol use disorder, severe, dependence Recurrent moderate major depressive disorder with anxiety Insomnia Alcohol withdrawal History of alcoholic hepatitis HTN (hypertension) Acute hepatitis Alcohol abuse with withdrawal Obesity (BMI 30-39.9) GERD without esophagitis Mixed hyperlipidemia Benign essential hypertension Surgical History History of esophagogastroduodenoscopy (EGD) H/O colonoscopy Family History Family History Father Advanced cirrhosis of liver Alcoholic cirrhosis Substance use disorder Mother Dementia Maternal Grandfather Substance use disorder Sister Substance use disorder Maternal Grandfather Colon cancer Prostate cancer Social History Social History Household Members: Spouse Household Members Other:: Cousin Housing: House Do you presently have visiting nurse or other home services: No Unable to assess alcohol history related to: Unknown Alcohol intake: current Alcohol intake frequency: 3 or more drinks per day Alcohol type: beer, wine and hard liquor Patient Tobacco Use Status: Former Tobacco user Tobacco use type: Cigarette Years Smoked: quit 10 years ago e-Cigarette/Vaping Use: Never Used Second Hand Smoke Exposure: No Substance Use Type: Crack/Cocaine Advance Directives: Yes Advance Directives on File: Yes Advance Directives Date on File: 10/23/21 service: No Current occupational status: 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 Physical Exam ED Vital Signs: Vital Signs - 24 hr 04/16/24 08:26 Temperature 98 F Pulse Rate 86 Respiratory Rate 20 Blood Pressure 120/78 Pulse Oximetry 95 Oxygen Delivery Method Room Air BMI result Body Mass Index 31.3 Const General: cooperative, no acute distress, alert and awake Nutritional Appearance: well nourished Orientation/consciousness: patient oriented x3 Limitations: no limitations HENMT Head: Yes normal to inspection and Yes atraumatic Ears: hearing grossly normal bilaterally and external ears normal General nose exam: Normal external nose present, no nasal discharge noted and no epistaxis Face and sinus: Yes normal facial exam, No abrasion and No laceration Mouth: Normal oral and palatal mucosa present, no drooling and no muffled voice Eyes General: appearance normal, both eyes and all related structures Periorbital: periorbital findings normal Eyelids: Yes eyelids normal Conjunctivae: conjunctivae normal Pupils: Equal, round and reactive pupils present EOM: EOMs intact bilaterally Neck Neck: Yes normal visual inspection, Yes full ROM and Yes no lymphadenopathy Chest Chest palpation & inspection: normal inspection of the chest Resp Effort & Inspection: normal respiratory effort and able to speak in complete sentences GI Inspection: Yes normal to inspection Neuro General: patient oriented x3 and moves all extremities Cranial nerves: Yes Equal, round and reactive pupils present Cognition (Neuro): normal cognition Extrem General: Yes normal to inspection, Yes full ROM and Yes capillary refill normal Psych Appearance: grossly normal Mental Status: mental status grossly normal Affect: normal affect Attitude: cooperative Thought process: Normal thought process present Thought content: Normal thought content present Insight: Good insight present (Psych) Medications Administered Discontinued Medications Generic Name Dose Route Start Last Admin Trade Name Freq PRN Reason Stop Dose Admin Oxycodone HCl 10 mg 04/16/24 10:44 04/16/24 10:56 Oxycodone Hcl Immed Release 5 Mg Tablet PO 04/16/24 10:45 10 mg ONCE ONE Administration Medical Decision Making Medical Decision Making MDM Narrative: Patient is a 58 year old assigned male at with a history of bipolar disorder, MDD, GERD, HLD, alcohol use disorder, and DM presenting to the emergency department today with a headache on the top of his head that started after coughing. Patient's physical exam was unremarkable. Patient's blood work showed a decrease in his hgb from 15.5 in 02/2024 to 12.4 today, hct 43.9 in 02/2024 to 34.6 today, plts 290 in 02/2024 to 126 today. Patient's influenza test was positive. Patient's chest x-ray and head CT showed no acute process. Given his decrease in hgb, hct, and plts - I spoke to the patient about any possible bleeding. Patient stated that he was told at some point he had varices and has been tasting blood in the back of his throat but he does not routinely follow with a GI specialist. I am suspicious the decrease in his lab values over 2 months is secondary to a slow upper GI bleed. I reached out to Dr. Looney, automobile contract clerk GI, who recommended having the patient on a PPI and having him follow up on an outpatient basis. Patient is on a PPI already - encouraged him to continue taking it. I explained my physical exam findings as well as all test results to the patient. I answered all questions asked by the patient. I stressed the importance of the patient taking his medication as directed (either prescribed or as the over the counter packaging recommends). I stressed the importance of the patient following up with his primary care provider and a GI specialist. I stressed the importance of the patient returning to the emergency department immediately if his symptoms were to worsen or if he were to develop any dizziness, shortness of breath, difficulty breathing, chest pain, blurry vision, loss of vision, nausea, vomiting, abdominal pain, fever, chills, back pain, or any other complaints. Patient verbalized agreement and understanding with this treatment plan and discharge. Differential Diagnosis Differential Diagnoses: The differential diagnosis associated with the presentation includes Slow upper GI bleeding Esophageal varices Peptic ulcer COVID-19 Influenza RSV Admission/Observation Consideration of admission/observation: Escalation of care including admission/observation considered Patient would have been admitted to the hospital had his work up had any findings where hospital admission was appropriate and his clinical presentation warranted hospital admission. Consult Healthcare Provider Management of the patient was discussed with: Triage Nurse (spoke with the GI specialist as noted in the MDM Rationale portion of this note.) Lab Data [facility] Lab Attestation statement: I reviewed the patient's lab results. My interpretation of these results are in the MDM Rationale portion of this note. 04/16/24 08:37 04/16/24 08:37 Labs: Lab Results 04/16/24 Range/Units 08:37 WBC 3.5 L (4.8-10.8) X10*3/uL RBC 4.09 L D (4.60-5.80) X10*6/uL Hgb 12.4 L (14.0-18.0) g/dl Hct 34.6 L D (42.0-52.0) % MCV 84.6 (80.0-98.0) fL MCH 30.3 (27.0-33.0) pg MCHC 35.8 (31.0-36.0) g/dl RDW 13.6 (11.0-16.0) % Plt Count 126 L D (160-400) X10*3/uL MPV 8.9 L (9.4-12.4) fL Immature Gran % (Auto) 0.6 H (0.0-0.4) % Neut % (Auto) 80.3 H (45-73) % Lymph % (Auto) 9.8 L (20-40) % [place] % (Auto) 8.1 (2-11) % Eos % (Auto) 0.6 (0-4) % Baso % (Auto) 0.6 (0-2) % Lymph # (Auto) 0.3 L (1.2-4.9) X10*3/uL [place] # (Auto) 0.3 (0.1-1.2) X10*3/uL Eos # (Auto) 0.0 (0.0-0.4) X10*3/uL Baso # (Auto) 0.0 (0.0-0.2) X10*3/uL Abs Immat Gran (auto) 0.02 (0.00-0.03) X10*3/uL Absolute Neuts (auto) 2.8 (2.0-8.3) x10*3/uL Absolute Nucleated RBC 0.000 (0.0-0.012) X10*3/uL Nucleated RBC % (auto) 0.0 (0.0-0.2) /100WBC Sodium 138 (135-145) mmol/L Potassium 3.6 (3.3-5.1) mmol/L Chloride 102 (96-108) mmol/L Carbon Dioxide 25 (22-29) mmol/L Anion Gap 15 (12-20) BUN 8 L (9-16) mg/dL Creatinine 0.90 (0.5-1.4) mg/dL Estim Creat Clear Calc 98.4 Estimated GFR > 60 Random Glucose 209 H (60-115) mg/dL Calcium 9.2 (8.4-10.2) mg/dL Total Bilirubin 0.5 (0.0-1.0) mg/dL AST 47 H (5-37) U/L ALT 47 H (0-40) U/L Alkaline Phosphatase 47 (39-117) U/L Total Protein 7.0 (6.5-8.0) g/dL Albumin 4.4 (3.5-5.0) g/dL Influenza Type A (PCR) POSITIVE A (Negative) Influenza Type B (PCR) NEGATIVE (Negative) RSV RNA Qual (PCR) NEGATIVE (Negative) SARS-CoV-2 RNA (RT-PCR) NEGATIVE (Negative) Independent Interpretation I performed an independent interpretation of an: Plain X-Ray and CT Scan Interpretation: My interpretation is in agreement with the radiologist's impression of these imaging studies. L Report Number: [id number]: Total DLP = 733.00 mGy-cm EXAMINATION: CT HEAD WITHOUT CONTRAST CLINICAL INFORMATION: Injury. Pain. COMPARISON: CTA at 11/13/[address] brain 11/13/2023. MRI brain 11/14/2023. TECHNIQUE: Contiguous axial imaging was performed from the skull base to vertex without intravenous administration of contrast. This CT examination was performed using dose optimization techniques as appropriate, variously including the following: *Automated exposure control *Adjustment of mA and/or kV according to patient size (this includes techniques or standardized protocols for targeted exams where dose is matched to indication/reason for exam; i.e. extremities or head) *Use of iterative reconstruction technique DLP 733 FINDINGS: There is no acute intra-axial, extra-axial bleed, masses or midline shift. No acute infarction in evolution. The cobos to white matter differentiation is maintained normal. The lateral ventricles are symmetrical but mildly enlarged and so are the cortical sulci in the frontal lobe. Bone windows reveal no calvarial abnormality. The paranasal sinuses and mastoid air cells are well- aerated. There is no scalp soft tissue abnormality. CT/CT head/brain wo IV con IMPRESSION: No acute intracranial process seen. No major change compared to previous study 11/13/2023 Electronically signed by: Erik Alfaro MD 04/16/2024 10:21 AM [facility] [place] Dictated By: Erik Alfaro MD Signed By: Electronically signed by Erik Alfaro MD 04/16/24 1021 EXAMINATION: XR CHEST CLINICAL INFORMATION: cough COMPARISON: None available. TECHNIQUE: 2 views of the chest were obtained. FINDINGS: The lungs are well-expanded and clear. The heart size and pulmonary vascularity is normal. There is moderate spondylosis dorsal spine. No aggressive lytic or sclerotic process seen. XR/XR chest 2V IMPRESSION: No acute cardiopulmonary process seen. There is moderate dorsal spine spondylosis. Electronically signed by: Erik Alfaro MD 04/16/2024 09:04 AM EST Dictated By: Erik Alfaro MD Signed By: Electronically signed by Erik Alfaro MD 04/16/24 0904 Radiology Impression Discussion of test interpretation with radiology: I have reviewed the radiologist's reading. Chronic Conditions Patient?s care impacted by: Diabetes Critical Care Time Critical Care Time Critical Care Time: Yes Total Critical Care Time: 34 Attestation: I spent 34 minutes of Critical Care Time with this patient. This does not include time spent on separately reported billable procedures. Discharge Plan Discharge Clinical Impression: Influenza A, Acute upper GI bleed Patient Disposition: Home, Self-Care Instructions: Influenza (DC) Additional Instructions: Your labs today showed possible slow bleeding and I am suspicious this is in your upper GI tract (esophagus / stomach) - you must follow up with a GI Specialist for this. I have provided you information on how you can do this. This bleeding is not emergent and does not require hospitalization, at this time. Your work up was otherwise positive for Influenza. Follow up with your primary care provider and GI specialist. Return to the emergency department immediately if your symptoms worsen or if you develop any vomiting of blood, bloody stools, dizziness, shortness of breath, difficulty breathing, chest pain, blurry vision, loss of vision, nausea, vomiting, abdominal pain, fever, chills, back pain, or any other complaints. Prescriptions: No Action rosuvastatin 40 mg tablet 40 mg PO BEDTIME Qty: 30 2RF labetalol 300 mg tablet 300 mg PO BEDTIME 90 Days Qty: 90 1RF tadalafil [Cialis] 5 mg tablet 5 mg PO DAILY PRN (Reason: sexual activity) 10 Days Qty: 10 2RF Rx Instructions: administer approximately 30min before sexual activity; do not use more than 1 dose per 24hrs ropinirole 3 mg tablet 3 mg PO BEDTIME 30 Days Qty: 30 1RF Rx Instructions: administer 1-3 hours before bedtime, for restless legs, cannot drink alcohol while on med multivitamin Tablet 1 tab PO DAILY prednisone 20 mg tablet 20 mg PO BID omega 5-zgt-ams-fish oil [Fish Oil] 1,000 mg (120 mg-180 mg) Capsule 1 cap PO BID metformin 1,000 mg tablet 1,000 mg PO BID 90 Days Qty: 180 1RF pantoprazole 40 mg tablet,delayed release (DR/EC) 40 mg PO DAILY@0630 Qty: 90 1RF bupropion HCl 200 mg tablet sustained-release 12 hr 200 mg PO BID quetiapine 100 mg tablet 200 mg PO BEDTIME PRN (Reason: anxiety) Referrals: [facility] [place] [facility] [place] Group] (Call to establish and follow up with a GI specialist. ) Miky Avitia, CONTINUOUS DRYOUT OPERATOR HELPER-BC [Primary Care Provider] - Stand Alone Forms: Work/School Release Print Language: Urdu
[2024-04-16] MEDS: oxyCODONE HCl Immed Release 5 MG TABLET 10 MG PO (10:56)
--- NOTE | 2024-04-16 11:02 | PC.NURSE ---
pt medicated per JUN for 11/18 headache pain
[2024-04-16 11:48] VITALS: BP 120/78; PULSE 86; RESP 20; TEMP 36.6; O2SAT 95
== END 2024-04-16 11:48 | disposition home or self-care (01) ==
PROVIDERS: Emergency Provider Emergency Medicine Emergency Medical Services; PCP Nurse Practitioner Family
DX: J10.1 Influenza due to other identified influenza virus with other respiratory manifestations (principal); R05.9 Cough, unspecified; R51.9 Headache, unspecified; Z03.818 Encounter for observation for suspected exposure to other biological agents ruled out
CPT/HCPCS: 0241U; 36415; 70450; 71046; 80053; 85025; 99283; 99284

== ENCOUNTER → 2024-04-16 08:50 | Outpatient (BNV) | payer OTHER, SELFPAY | PROVIDERS: Emergency Provider Emergency Medicine Emergency Medical Services; PCP Nurse Practitioner Family; Visit Provider Radiology Diagnostic Radiology | DX: M47.894 Other spondylosis, thoracic region (principal); S09.90XA Unspecified injury of head, initial encounter | CPT/HCPCS: 70450; 71046 ==

== ENCOUNTER 2024-04-16 19:37 | Emergency (ER) | payer OTHER, SELFPAY ==
--- NOTE | 2024-04-16 21:02 | PC.NURSE ---
No answer when called from waiting room to triage x3. Multiple attempts by this RN. Left without triage.
== END 2024-04-16 21:42 | disposition left against medical advice (07) ==
PROVIDERS: Emergency Provider Emergency Medicine; PCP Nurse Practitioner Family
DX: R69 Illness, unspecified (principal); Z53.21 Procedure and treatment not carried out due to patient leaving prior to being seen by health care provider

== ENCOUNTER 2024-04-20 12:57 | Outpatient (AMB) | payer OTHER, SELFPAY ==
--- OUTSIDE RECORDS SUMMARY | 2024-04-20 13:00 | XMS_ITS | Data Portability ---
Author Organization [place] - [facility], Allergy Address [address] [place] [address] Care Team Providers Care Skatesman Name Role Phone LUDY JOHNSON Primary Care Provider [phone] Assessment Encounter Date Assessment Date Assessment LastModified [...] drug-induc ed sleep endoscopy (SURG) 2023 024 [id number] Not available 16:39:19 Surgeries None recorded. Imaging None recorded. Medication Orders None recorded. Patient TargetsNo targets recorded. Patient InstructionsNo instructions recorded. Reason for Referral None Reported. Results Created Date Observation Date Name Description Value Unit Range Abnormal Flag Note LastModifiedBy Organization Detail LastModifiedTime 01/16/2001/16/2024 sleep study , diagn ostic (PROC ) No observ ation record ed. [facility] (Medical Records) [address] [place], [address], 01/16/2024 12:21:38 Result Notes None recorded. Problems Name Problem SNOMED Code Status Onset Date Resolution Date Notes Provider Name and Address Organization Details Recorded Time Disorder of upper respirato ry system 520755830 Active 2015 Other specified diseases of upper respirator y tract; Note: Date Diagnosed: 05/23/2015 10:28 AM (J39.8) Not Available [facility] 02:39:14 Obstructi ve sleep apnea syndrome 53265042 Active 2023 DELMY SEGURA MD [address] [place] [address],[place] [address], [place], [phone] , [place] - [facility] 20:44:56 Tremor 38656780 Active 2023 DELMY SEGURA MD [address] [place] [address],[place] [address], [place], [address] , [place] - [facility] 20:45:03 Chronic insomnia 032724623 Active 2023 DELMY SEGURA MD [address] [place] [address],[place] [address], [place], [address] , [place] - [facility] 12:08:03 Problem Notes None recorded. Procedures Surgical History Date Name Laterality Status Provider Name and Address Organization Details Recorded Time 01/16/2024 FOL_DP completed DELMY SEGURA MD [address] [place] [address],[place] [address], [place], [address], [facility] - [facility] 01/13/2024 20:44:48 Imaging Results Imaging Date Name Status LastModified by Organiz ation Details LastModified Time 01/16/2024 sleep study, diagnostic (PROC) completed [facility] (Medical Records) [address] [place], [address], 01/16/2024 12:21:38 Procedure Notes None recorded. Medical [...] mg tablet 2015 active Medicatio n ID: [id number] Du ration Value: 30 Brand Name: quetiapin [...] mg tablet 2015 active Medicatio n ID: [id number] Du ration Value: 30 Brand Name: sertralin [...] 600 mg tablet active Medicatio n ID: [id number] Br and Name: kosta il Send Method: [...] mg tablet 2015 active Medicatio n ID: [id number] Du ration Value: 30 Brand Name: clonazepa [...] layed release 2014 active Medicatio n ID: [id number] Du ration Value: 90 Brand Name: omeprazol [...] Updated DateTime 01/16/2024 170.18 cm 31.3 kg/m2 78975.47 g Kelsey Ba [place] - [facility] 01/16/2024 11:48:17 Social History None recorded. Functional Status None recorded. Mental Status None recorded. Family History Nothing Reported. Medical History No medical history recorded. Past Encounters Encounter ID Performer Location Encounter Start Date Encounter Closed Date Diagnosis/Indication Diagnosis SNOMED-CT Code Diagnosis ICD10 Code Diagnosis Note DELMY SEGURA MD [facility] [address] [phone] 01/16/2024 11:22:17 01/16/2024 13:49:06 Obstructive sleep apnea syndrome 93827550 G47.33 [facility] [place] Tremor 70247212 R25.1 Chronic insomnia 1941716 04 F51.04 I am concerned the patient may ultimately not be a good candidate for the inspire implantati on secondary to his chronic insomnia. Encouraged him to continue working with sleep center to get this under control Body mass index 30+ - obesity 814737451 Z68.31 Health Concerns Section Related Observation LastModified by Organization Detai ls LastModified Time None Recorded Concern Status LastModified by Organization Details LastModified Time None Recorded Advance Directives Directive None Recorded Payers Encounter Date Sequence Insurance Name Policy Number Policy Brewer Covered Member ID Brewer Member ID Guarantor Name 01/16/[address] 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
[2024-04-20 13:09] VITALS: BP 122/78; PULSE 68; O2SAT 97; BMI 31.9
--- NOTE | 2024-04-20 13:09 | A.OFFVIS_ITS ---
Vital Signs 04/20/24 13:09 Height 5 ft 7 in Weight 203 lb 11.314 oz BMI 31.9 BP 122/78 Blood Pressure Location Rt brachial Position Sitting Pulse 68 Pulse Source Pulse Oximeter Pulse Oximetry (%) 97 Oxygen Delivery Method Room Air Intake Visit Reasons: [employer], Acute GI bleed. ED FUV. Intake Note: NEW PATIENT Reason; Acute GI bleed per ED. Prior hx of colo/egd? '22 with [facility] (EGD) no colo. Concerns/Questions? No additional concerns per pt. Would like to discuss potential treatment plan. Pt does have hx of esophageal ulcerations. Pt has previous hx of EtoH abuse. Allergies No Known Allergies [No Known Allergies*] Allergy (Verified 04/20/24 13:09) HPI HPI [employer], Acute GI bleed. ED FUV.: Details: ADMISSION FROM AUGUST OF 2022, GI CONSULT WITH DR. ESQUEDA Date of Service: 09/04/22 Event Note: GI Consult-Full note dictated Imp: Self-limited UGI bleed with a single episode of emesis in a 57yo male with the recent onset of binge drinking. He has a longstanding history of EtOH abuse as well. He had an EGD in 03/[address] Trinh that was negative for varices, portal gastropathy, and ulcers. His Hgb on admission was normal. He appears quite stable at the present time. Diff dx: Maddy-Esqueda tear, EtOH-gastritis and/or esophagitis. I don't think this represents PUD nor varices. Rec: Hold off on EGD as long as things remain stable. F/U labs. Clear liquids and IV PPI overnight. If stable in AM then advance diet and change to po PPI. If he shows signs of active bleeding please call me and an upper endoscopy will be arranged. I reviewed with patient the need for complete sobriety senior care. He is comfortable with this plan. ED VISIT: 04/16/2024 MDM Narrative: Patient is a 58 year old assigned male at with a history of bipolar disorder, MDD, GERD, HLD, alcohol use disorder, and DM presenting to the emergency department today with a headache on the top of his head that started after coughing. Patient's physical exam was unremarkable. Patient's blood work showed a decrease in his hgb from 15.5 in 02/2024 to 12.4 today, hct 43.9 in 02/2024 to 34.6 today, plts 290 in 02/2024 to 126 today. Patient's influenza test was positive. Patient's chest x-ray and head CT showed no acute process. Given his decrease in hgb, hct, and plts - I spoke to the patient about any possible bleeding. Patient stated that he was told at some point he had varices and has been tasting blood in the back of his throat but he does not routinely follow with a GI specialist. I am suspicious the decrease in his lab values over 2 months is secondary to a slow upper GI bleed. I reached out to Dr. Looney, carton maker GI, who recommended having the patient on a PPI and having him follow up on an outpatient basis. Patient is on a PPI already - encouraged him to continue taking it. I explained my physical exam findings as well as all test results to the patient. I answered all questions asked by the patient. I stressed the importance of the patient taking his medication as directed (either prescribed or as the over the counter packaging recommends). I stressed the importance of the patient following up with his primary care provider and a GI specialist. I stressed the importance of the patient returning to the emergency department immediately if his symptoms were to worsen or if he were to develop any dizziness, shortness of breath, difficulty breathing, chest pain, blurry vision, loss of vision, nausea, vomiting, abdominal pain, fever, chills, back pain, or any other complaints. Patient verbalized agreement and understanding with this treatment plan and discharge. TODAY'S VISIT Patient is here today after being discharged from the emergency room with possibility of slow GI bleed. As mentioned above in ED visit note provider addressed his recent anemia. Patient denies dyspepsia, dysphagia or odynophagia. Patient denies melena, hematochezia, unintentional weight loss or ribbon like stools. Patient reports moving his bowels without any issues. No constipation, diarrhea, mucus in his stools. Patient is taking pantoprazole every morning. All reviewed documents from previous hospitalization and visits to ED discussed with patient. [facility] Medical History Fatty liver Obstructive sleep apnea Essential and other specified forms of tremor Hypersomnolence Snoring Diabetes mellitus Alcoholic ketoacidosis Anxiety with depression Alcohol use disorder, severe, dependence Recurrent moderate major depressive disorder with anxiety Insomnia Alcohol withdrawal History of alcoholic hepatitis HTN (hypertension) Acute hepatitis Alcohol abuse with withdrawal Obesity (BMI 30-39.9) GERD without esophagitis Mixed hyperlipidemia Benign essential hypertension Surgical History History of esophagogastroduodenoscopy (EGD) H/O colonoscopy Family History Father Advanced cirrhosis of liver Alcoholic cirrhosis Substance use disorder Mother Dementia Maternal Grandfather Substance use disorder Sister Substance use disorder Maternal Grandfather Colon cancer Prostate cancer Social History Household Members: Spouse Household Members Other:: Cousin Housing: House Do you presently have visiting nurse or other home services: No Unable to assess alcohol history related to: Unknown Alcohol intake: current Alcohol intake frequency: 3 or more drinks per day Alcohol type: beer, wine and hard liquor Patient Tobacco Use Status: Former Tobacco user Tobacco use type: Cigarette Years Smoked: quit 10 years ago e-Cigarette/Vaping Use: Never Used Second Hand Smoke Exposure: No Substance Use Type: Crack/Cocaine Advance Directives Date on File: 10/23/21 service: No Current occupational status: 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 Physical Exam Vital Signs: Last Vital Signs Pulse 68 04/20/24 13:09 BP 122/78 04/20/24 13:09 Pulse Ox 97 04/20/24 13:09 Oxygen Delivery Method Room Air 04/20/24 13:09 BMI result Body Mass Index 31.9 Assessment & Plan Assessment & Plan (1) GERD (gastroesophageal reflux disease): Code(s): K21.9 - Gastro-esophageal reflux disease without esophagitis Qualifiers: Esophagitis presence: esophagitis presence not specified Qualified Code(s): K21.9 - Gastro-esophageal reflux disease without esophagitis (2) Anemia: Code(s): D64.9 - Anemia, unspecified Qualifiers: Anemia type: unspecified type Qualified Code(s): D64.9 - Anemia, unspecified (3) Postprandial epigastric pain: Code(s): R10.13 - Epigastric pain Plan Will have patient repeat CBC. Patient reports epigastric pain occasionally, will send him for upper GI with barium swallow. Will check transglutaminase, vitamin B12, folate and vitamin-D level. Patient can start sucralfate at bedtime. He will return in 2-3 months to discuss going for colonoscopy and upper endoscopy. Long discussion with patient avoiding dietary triggers and late night snacking. Staying upright for minimum 3 hours after meals discussed with patient. Continue pantoprazole in the morning as patient reports that it is helping. If any worsening symptoms patient is to call the office. Message sent to surgical schedulers to book upper endoscopy and colonoscopy for patient. Patient is agreeable to current plan of care and verbalizes understanding of instructions. He was given the opportunity to ask questions and all questions answered. Thank you for allowing me to participate in his care Orders: Orders Complete Blood Count no Diff 04/20/24 K21.9 - Gastro-esophageal reflux disease without esophagitis FL upper GI w Ba Swallow 04/20/24 K21.9 - Gastro-esophageal reflux disease without esophagitis Vitamin D 25-OH (D2 and D3) 04/20/24 E55.9 - Vitamin D deficiency, unspecified Vitamin B12 and Folate 04/20/24 R19.7 - Diarrhea, unspecified Transglutaminase IgA 04/20/24 R10.9 - Unspecified abdominal pain Medications: New sucralfate 10 mL PO BEDTIME 400 mL 3RF K21.9 - Gastro-esophageal reflux disease without esophagitis Coding Level of Care Code Est Pt Level 4 (61903) Complex EM visit Add On G2211 Diagnoses Gastroesophageal reflux disease, unspecified whether esophagitis present K21.9 Esophagitis presence: esophagitis presence not specified Anemia, unspecified type D64.9 Anemia type: unspecified type Postprandial epigastric pain R10.13 Time Spent (min) 40 Comment 25 minutes spent with patient and additional 15 minutes spent reviewing his records
== END 2024-04-20 13:39 | disposition home or self-care (01) ==
PROVIDERS: PCP Nurse Practitioner Family; Visit Provider Nurse Practitioner Family
DX: K21.9 Gastro-esophageal reflux disease without esophagitis (principal); D64.9 Anemia, unspecified; R10.13 Epigastric pain
CPT/HCPCS: 99214; G2211

== ENCOUNTER → 2024-04-20 12:57 | Outpatient (BNVA) | payer OTHER, SELFPAY | PROVIDERS: PCP Nurse Practitioner Family; Visit Provider Nurse Practitioner Family | DX: K21.9 Gastro-esophageal reflux disease without esophagitis (principal); D64.9 Anemia, unspecified; R10.13 Epigastric pain | CPT/HCPCS: 99212 ==

== ENCOUNTER 2024-05-18 18:40 | Emergency (ER) | payer BC, SELFPAY ==
--- OUTSIDE RECORDS SUMMARY | 2024-05-18 19:48 | XMS_ITS | Encounter Summary ---
Author Organization [facility] Address [address] [place] [address] Care Team Providers Care Jewelry Coater Name Role Phone Fritz Shelley MD Primary Care Provider [phone] Reason for Visit * Reason Comments Other Encounter Details Date Type Department Care Team ([facility] st Contact Info) Description 09/22/2020 Telephone [facility] Urologic Surgery [address] [phone] Nicholas Fernandez MD [address] [place] [id number] Other Social History Tobacco Use Types Packs/Day Years Used Date Smoking Tobacco: Former Smokeless Tobacco: Never Sex and Gender Information Value Date Recorded Sex Assigned at Not on file Gender Identity Not on file Sexual Orientation Not on file documented as of this encounter Plan of Treatment Not on file documented as of this encounter Visit Diagnoses Not on filedocumented in this encounter Care Teams Jewelry Coater Relationship Specialty Start Date End Date Fritz Shelley MD [address] [place] [address] Dr Tran [address] [place] [address] PCP - General Internal Medicine 12/11/19 documented as of this encounter
--- OUTSIDE RECORDS SUMMARY | 2024-05-18 19:48 | XMS_ITS | Encounter Summary ---
Author Organization [facility] Address [address] [place] [address] Care Team Providers Care Electrical Line Splicer Name Role Phone Fritz Shelley MD Primary Care Provider [phone]- [phone] Reason for Visit * Reason Comments Prior Authorization xiaflex Encounter Details Date Type Department Care Team (Late st Contact Info) Description 02/19/2020 Telephone [facility] Urologic Surgery [facility] [address] [facility] [address] [place] [phone] Deborah Figueroa MD [address] [facility] [address] [place] [address] Prior Authorization (xiaflex) Social History Tobacco Use Types Packs/Day Years Used Date Smoking Tobacco: Never Assessed Sex and Gender Information Value Date Recorded Sex Assigned at Not on file Gender Identity Not on file Sexual Orientation Not on file COVID-19 Exposure Response Date Recorded In the last month, have you been in contact with someone who was confirmed or suspected to have Coronavirus / COVID-19? No / Unsure 02/05/2020 2:47 PM EDT documented as of this encounter Plan of Treatment Not on file documented as of this encounter Visit Diagnoses Not on filedocumented in this encounter Care Teams Electrical Line Splicer Relationship Specialty Start Date End Date Fritz Shelley MD [address] [place] [address] [place] [address] PCP - General Internal Medicine 12/11/19 documented as of this encounter
--- OUTSIDE RECORDS SUMMARY | 2024-05-18 19:48 | XMS_ITS | Data Portability ---
Author Organization [place] - [facility], Allergy Address [address] [place] [phone] Care Team Providers Care Watch Leader Name Role Phone LUDY JOHNSON Primary Care [...] drug-induc ed sleep endoscopy (SURG) 2023 024 9 Not available 16:39:19 Surgeries None recorded. Imaging None recorded. Medication Orders None recorded. Patient TargetsNo targets recorded. Patient InstructionsNo instructions recorded. Reason for Referral None Reported. Results Created Date Observation Date Name Description Value Unit Range Abnormal Flag Note LastModifiedBy Organization Detail LastModifiedTime 01/16/2001/16/2024 sleep study , diagn ostic (PROC ) No observ ation record ed. [facility] (Medical Records) [address] [place], [address], 01/16/2024 12:21:38 Result Notes None recorded. Problems Name Problem SNOMED Code Status Onset Date Resolution Date Notes Provider Name and Address Organization Details Recorded Time Disorder of upper respirato ry system 123084637 Active 2015 Other specified diseases of upper respirator y tract; Note: Date Diagnosed: 05/23/2015 10:28 AM (J39.8) Not Available [facility] 02:39:14 Obstructi ve sleep apnea syndrome 45104198 Active 2023 DELMY SEGURA MD [address] [place] [address],[place] [address], [place], [address] , [place] - [facility] 20:44:56 Tremor 13047555 Active 2023 DELMY SEGURA MD [address] [place] [address],[place] [address], [place], [address] , [place] - [facility] 20:45:03 Chronic insomnia 109483562 Active 2023 DELMY SEGURA MD [address] [place] [address],[place] [address], [place], [phone] , [place] - [facility] 12:08:03 Problem Notes None recorded. Procedures Surgical History Date Name Laterality Status Provider Name and Address Organization Details Recorded Time 01/16/2024 FOL_DP completed DELMY SEGURA MD [address] [place] [address],[place] [address], [place], [address], [facility] - [facility] 01/13/2024 20:44:48 Imaging Results Imaging Date Name Status LastModified by Organiz ation Details LastModified Time 01/16/2024 sleep study, diagnostic (PROC) completed [facility] (Medical Records) [address] [place], [address], 01/16/2024 12:21:38 Procedure Notes None recorded. Medical [...] mg tablet 2015 active Medicatio n ID: [id number] Du ration Value: 30 Brand Name: quetiapin [...] mg tablet 2015 active Medicatio n ID: [id number] Du ration Value: 30 Brand Name: sertralin [...] 600 mg tablet active Medicatio n ID: [id number] Br and Name: kosta il Send Method: [...] mg tablet 2015 active Medicatio n ID: [id number] Du ration Value: 30 Brand Name: clonazepa [...] layed release 2014 active Medicatio n ID: [id number] Du ration Value: 90 Brand Name: omeprazol [...] Updated DateTime 01/16/2024 170.18 cm 31.3 kg/m2 97856.47 g Kelsey Ba [place] - [facility] 01/16/2024 11:48:17 Social History None recorded. Functional Status None recorded. Mental Status None recorded. Family History Nothing Reported. Medical History No medical history recorded. Past Encounters Encounter ID Performer Location Encounter Start Date Encounter Closed Date Diagnosis/Indication Diagnosis SNOMED-CT Code Diagnosis ICD10 Code Diagnosis Note DELMY SEGURA MD [facility] [address] [phone] 01/16/2024 11:22:17 01/16/2024 13:49:06 Obstructive sleep apnea syndrome 17169890 G47.33 Home [facility] [place] T[facility]or 18252122 R25.1 Chronic insomnia 4154792 04 F51.04 I am concerned the patient may ultimately not be a good candidate for the inspire implantati on secondary to his chronic insomnia. Encouraged him to continue working with sleep center to get this under control Body mass index 30+ - obesity 814393482 Z68.31 Health Concerns Section Related Observation LastModified by Organization Detai ls LastModified Time None Recorded Concern Status LastModified by Organization Details LastModified Time None Recorded Advance Directives Directive None Recorded Payers Encounter Date Sequence Insurance Name Policy Number Policy Brewer Covered Member ID Brewer Member ID Guarantor Name 01/16/2024 1 [facility] - HEALTH NET PLAN (MEDICAID HMO) JORGE Juan [id number] Jose Miguel Juan Notes Date Note Type [...] 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
--- OUTSIDE RECORDS SUMMARY | 2024-05-18 19:48 | XMS_ITS | Clinical Summary ---
Author Organization [facility] Address [address] [place] [address] Care Team Providers Care Family Preservation Worker Name Role Phone Fritz Shelley MD Primary Care Provider +1- [phone] Allergies No known active allergies Medications Medication Sig Dispensed Refills Start Date End Date Status gemfibrozil (LOPID) 600 MG tablet Take 600 mg by mouth 2 (two) times a day. 11/02/2019 Active labetalol (NORMODYNE) 300 MG tablet Take 300 mg by mouth 2 (two) times a day. 11/08/2019 Active metFORMIN (GLUCOPHAGE) 500 MG tablet Take 500 mg by mouth 2 (two) times a day. 10/20/2020 Active Active Problems No known active problems Social History Tobacco Use Types Packs/Day Years Used Date Smoking Tobacco: Former Smokeless Tobacco: Never Sex and Gender Information Value Date Recorded Sex Assigned at Not on file Gender Identity Not on file Sexual Orientation Not on file Last Filed Vital Signs Vital Sign Reading Time Taken Comments Blood Pressure - - Pulse 67 01/28/2021 3:07 PM EDT Temperature 36.6 ??C (97.8 ??F) 03/13/2021 3:06 PM ES T Respiratory Rate 16 01/28/2021 3:07 PM EDT Oxygen Saturation 96% 01/28/2021 3:07 PM EDT Inhaled Oxygen Concentration - - Weight 87.1 kg (192 lb) 03/13/2021 3:06 PM EST Height 170.2 cm (5' 7 ) 03/13/2021 3:06 PM EST Body Mass Index 30.07 03/13/2021 3:06 PM EST Plan of Treatment Health Maintenance Due Date Last Done Comments Hepatitis C Virus Screening 1965 HIV Screening 08/08/1980 DTaP/Tdap/Td Vaccines (1 - Tdap) 08/08/1986 Hepatitis B Vaccines (1 of 3 - 19+ 3-dose series) 08/08/1986 Colonoscopy 08/08/2012 Pneumococcal Vaccines 50+ (1 of 1 - PCV) 08/08/2017 Zoster (Shingles) Vaccine (1 of 2) 08/08/2017 Influenza Vaccine 11/10/2023 COVID-19 Vaccine (1 - 2023-2 5 season) 2023 Pneumococcal Vaccine: Pediat mikal (0-5 Years) and At-Risk Patients (6 to 49 Years) Aged Out No longer eligible b ased on patient's age to complete this topic Care Teams Family Preservation Worker Relationship Specialty Start Date End Date Fritz Shelley MD [address] [place] [address] [place] [address] PCP - General Internal Medicine 12/11/19
== END 2024-05-18 22:30 | disposition left against medical advice (07) ==
PROVIDERS: Emergency Provider Emergency Medicine
DX: K92.2 Gastrointestinal hemorrhage, unspecified (principal)

== ENCOUNTER → 2024-06-01 08:18 | Outpatient (REF) | payer BC, SELFPAY ==
--- NOTE | 2024-06-01 08:21 | CA_ITS ---
Acquisition Time: 2024-06-01 08:41:20 Total Exercise Time: 00:08:13 Test Indications: pre op Medications: Protocol: ELKIN Max HR: 146 BPM 89% of Pred: 164 BPM Max BP: 150/84 mmHG Max Work Load: 8.5 METS Exercise Stress Test with exercise 8 mins 13 secs of Elkin Protocol, held at Stage 3 with reduced speed to 2.8 mph, achieving 89% MPHR, with reports of severe SOB, no chest discomfort, without any arrythmias, with normotensive response to exercise. Without EKG changes meeting criteria for ischemia. In recovery, breathing returned to baseline. Nuclear images pending. Test reviewed with Dr. Cazares. Referred By: Kofi Sahni Electronically Signed By: Darek Ivey
--- OUTSIDE RECORDS SUMMARY | 2024-06-01 08:28 | XMS_ITS | Encounter Summary ---
Author Organization [facility] Address [address] [place] [address] Care Team Providers Care Caddy Name Role Phone Fritz Shelley MD Primary Care Provider +1- [phone] Reason for Visit * Reason Comments Prior Authorization xiaflex Encounter Details Date Type Department Care Team (Late st Contact Info) Description 02/19/[address] [facility] Urologic Surgery [place] [address] [facility] [address] [place] [phone] Deborah Figueroa MD [address] [facility] [address] [place] [address] Prior Authorization (xiaflex) Social History Tobacco Use [...] on filedocumented in this encounter Care Teams Caddy Relationship Specialty Start Date End Date Fritz Shelley MD [address] [place] [address] [place] [address] PCP - General Internal Medicine 12/11/19 documented as of this encounter
--- OUTSIDE RECORDS SUMMARY | 2024-06-01 08:28 | XMS_ITS | Encounter Summary ---
Author Organization [facility] Address [address] [place] [address] Care Team Providers Care Cripple Worker Name Role Phone Fritz Shelley MD Primary Care Provider +1- [phone] Reason for Visit * Reason Comments Other Encounter Details Date Type Department Care Team ([facility] st Contact Info) Description 09/22/2020 Telephone [facility] Urologic Surgery [address] [phone] Nicholas Fernandez MD [address] [place] [address] Other Social History Tobacco Use Types Packs/Day [...] on filedocumented in this encounter Care Teams Cripple Worker Relationship Specialty Start Date End Date Fritz Shelley MD [address] [place] [address] Dr Tran [address] [place] [address] PCP - General Internal Medicine 12/11/19 documented as of this encounter
--- OUTSIDE RECORDS SUMMARY | 2024-06-01 08:28 | XMS_ITS | Encounter Summary ---
Author Organization [facility] Address [address] [place] [address] Care Team Providers Care Gun Repair Clerk Name Role Phone Fritz Shelley MD Primary Care Provider +1- [phone] Reason for Visit * Reason Comments Appointment Encounter Details Date Type Department Care Team ([facility] st Contact Info) Description 10/22/2020 Telephone [facility] [address] [place] [phone] Nicholas Fernandez MD [address] [address] Appointment Social History Tobacco Use Types Packs/Day Years Used Date Smoking Tobacco: Former Smokeless Tobacco: Never Sex and Gender Information Value Date Recorded Sex Assigned at Not on file Gender Identity Not on file Sexual Orientation Not on file documented as of this encounter Miscellaneous Notes * Telephone Encounter - Alejandro Edmond - 12/25/2020 1:02 PM EDT LM to notify patient that the appointment will be okay to keep on 01/09 as it is scheduled as a normal follow up. The injections are scheduling during the time that his current insurance is active. documented in this encounter Plan of Treatment Not on file documented as of this encounter Visit Diagnoses Not on filedocumented in this encounter Care Teams Gun Repair Clerk Relationship Specialty Start Date End Date Fritz Shelley MD [address] [place] [address] Dr Tran [address] [place] [address] PCP - General Internal Medicine 12/11/19 documented as of this encounter
--- OUTSIDE RECORDS SUMMARY | 2024-06-01 08:29 | XMS_ITS | Clinical Summary ---
Author Organization [facility] Address [address] [place] [address] Care Team Providers Care Housekeeping Assistant Name Role Phone Fritz Shelley MD Primary Care Provider +1- [phone] Allergies No known active allergies Medications Medication [...] age to complete this topic Care Teams Housekeeping Assistant Relationship Specialty Start Date End Date Fritz Shelley MD [address] [place] [address] [place] [address] PCP - General Internal Medicine 12/11/19
--- OUTSIDE RECORDS SUMMARY | 2024-06-01 08:29 | XMS_ITS | Data Portability ---
Author Organization [place] [facility] Address [address] [place] [phone] Care Team Providers Care Animal Assistant Name Role Phone LUDY JOHNSON Primary Care [...] (PROC ) No observ ation record ed. [facility] (Medical Records) [address] [place], [address], 01/16/2024 12:21:38 Result Notes None recorded. Problems Name Problem SNOMED Code Status Onset Date Resolution Date Notes Provider Name and Address Organization Details Recorded Time Disorder of upper respirato ry system 601419271 Active 2015 Other specified diseases of upper respirator y tract; Note: Date Diagnosed: 05/23/2015 10:28 AM (J39.8) Not Available [facility] 02:39:14 Obstructi ve sleep apnea syndrome 68399604 Active 2023 DELMY SEGURA MD [address] [place] [address],[place] [address], [place], [phone] , [place] - [facility] 20:44:56 Tremor 20447248 Active 2023 DELMY SEGURA MD [address] [place] [address],[place] [address], [place], [address] , [place] - [facility] 20:45:03 Chronic insomnia 088188702 Active 2023 DELMY SEGURA MD [address] [place] [address],[place] [address], [place], [address] , [place] - [facility] 12:08:03 Problem Notes None recorded. Procedures Surgical History Date Name Laterality Status Provider Name and Address Organization Details Recorded Time 01/16/2024 FOL_DP completed DELMY SEGURA MD [address] [place] [address],[place] [address], [place], [address], [facility] - [facility] 01/13/2024 20:44:48 Imaging Results Imaging Date Name Status LastModified by Organiz ation Details LastModified Time 01/16/2024 sleep study, diagnostic (PROC) completed [facility] (Medical Records) [address] [place], [address], 01/16/2024 12:21:38 Procedure Notes None recorded. Medical [...] mg tablet 2015 active Medicatio n ID: [id number] Du ration Value: 30 Brand Name: quetiapin [...] mg tablet 2015 active Medicatio n ID: [id number] Du ration Value: 30 Brand Name: sertralin [...] 600 mg tablet active Medicatio n ID: [id number] Br and Name: kosta il Send Method: [...] mg tablet 2015 active Medicatio n ID: [id number] Du ration Value: 30 Brand Name: clonazepa [...] layed release 2014 active Medicatio n ID: [id number] Du ration Value: 90 Brand Name: omeprazol [...] Updated DateTime 01/16/2024 170.18 cm 31.3 kg/m2 97127.47 g Kelsey Ba [place] - [facility] 01/16/2024 11:48:17 Social History None recorded. Functional Status None recorded. Mental Status None recorded. Family History Nothing Reported. Medical History No medical history recorded. Past Encounters Encounter ID Performer Location Encounter Start Date Encounter Closed Date Diagnosis/Indication Diagnosis SNOMED-CT Code Diagnosis ICD10 Code Diagnosis Note DELMY SEGURA MD [facility] [address] [phone] 01/16/2024 11:22:17 01/16/2024 13:49:06 Obstructive sleep apnea syndrome 15302560 G47.33 [facility] [place] Tremor 19590327 R25.1 Chronic insomnia 1607385 04 F51.04 I am concerned the patient may ultimately not be a good candidate for the inspire implantati on secondary to his chronic insomnia. Encouraged him to continue working with sleep center to get this under control Body mass index 30+ - obesity 148366585 Z68.31 Health Concerns Section Related Observation LastModified by Organization Detai ls LastModified Time None Recorded Concern Status LastModified by Organization Details LastModified Time None Recorded Advance Directives Directive None Recorded Payers Encounter Date Sequence Insurance Name Policy Number Policy Brewer Covered Member ID Brewer Member ID Guarantor Name 01/16/2024 1 [facility] - HEALTH NET PLAN (MEDICAID HMO) JORGE Juan [id number] Jose Miguel Juan Notes Date Note Type [...] 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
== END ==
LOC: HO.CARD 08:18
PROVIDERS: PCP Nurse Practitioner Family; Visit Provider Internal Medicine Cardiovascular Disease
DX: Z01.810 Encounter for preprocedural cardiovascular examination (principal); R07.9 Chest pain, unspecified
CPT/HCPCS: 78452; 93017; A9500

== ENCOUNTER → 2024-06-01 08:21 | Outpatient (BNV) | payer BC, SELFPAY | PROVIDERS: PCP Nurse Practitioner Family | DX: R06.02 Shortness of breath (principal) | CPT/HCPCS: 78452; 93016; 93018 ==

== ENCOUNTER 2024-06-11 08:20 | Outpatient (BNV) | payer MEDICAID, SELFPAY | END 2024-06-11 08:55 | PROVIDERS: Admitting Provider Surgery Vascular Surgery; Visit Provider Internal Medicine Cardiovascular Disease | DX: R00.1 Bradycardia, unspecified (principal) | CPT/HCPCS: 93010 ==

== ENCOUNTER 2024-06-11 08:20 | Inpatient (IN) | payer BC, MEDICAID, SELFPAY ==
--- NOTE | 2024-06-08 12:59 | HO.ANESPROP2 ---
Documented by User: Esperanza Guan NP 06/08/24 13:07 HPI - Anesthesia Eval Consult details Narrative: 58yo M for Right Carotid Endarterectomy Pt was a late add on and did not go through PAT process. ETOH abuse DM SEBASTIAN PMFSH Active Problems Active Problems: All Active Problems (Updated 04/17/24 @ 00:01 by Background Daemon) Preoperative cardiovascular examination (Acute) Carotid stenosis, right (Acute) Carotid stenosis (Acute) Dyslipidemia (Acute) Fatigue (Acute) Restless leg (Acute) Obstructive sleep apnea (Acute) Decreased hearing (Acute) Tinnitus (Acute) Occult blood positive stool (Acute) Hematemesis (Acute) Essential and other specified forms of tremor (Acute) Hypersomnolence (Acute) Snoring (Acute) Bipolar disorder, current episode depressed, severe, without psychotic features (Acute) Alcohol use disorder, severe, dependence (Acute) Disorder of eustachian tube (Acute) Tinnitus of left ear (Acute) Diabetes mellitus (Acute) Coarse tremors (Acute) Other bursal cyst, left ankle and foot (Acute) Other cyst of bone, left hand (Acute) Abscess (Acute) Acute alcoholic hepatitis (Acute) Pancytopenia (Acute) Physical exam (Acute) Screening PSA (prostate specific antigen) (Acute) MDD (major depressive disorder), recurrent severe, without psychosis (Acute) Acute alcoholic gastritis (Acute) Chest pain (Acute) Right hip pain (Acute) Abdominal pain (Acute) Alcoholism in remission (Acute) Recurrent moderate major depressive disorder with anxiety (Acute) Obesity (BMI 30-39.9) (Acute) GERD without esophagitis (Acute) Mixed hyperlipidemia (Acute) Past Medical History Medical History Fatty liver Obstructive sleep apnea Essential and other specified forms of tremor Hypersomnolence Snoring Diabetes mellitus Alcoholic ketoacidosis Anxiety with depression Alcohol use disorder, severe, dependence Recurrent moderate major depressive disorder with anxiety Insomnia Alcohol withdrawal History of alcoholic hepatitis HTN (hypertension) Acute hepatitis Alcohol abuse with withdrawal Obesity (BMI 30-39.9) GERD without esophagitis Mixed hyperlipidemia Benign essential hypertension Family History Family History Father Advanced cirrhosis of liver Alcoholic cirrhosis Substance use disorder Mother Dementia Maternal Grandfather Substance use disorder Sister Substance use disorder Maternal Grandfather Colon cancer Prostate cancer Family history of problems with anesthesia: No Surgical History Surgical History History of esophagogastroduodenoscopy (EGD) H/O colonoscopy History of Problems with Anesthesia: No Social History Social History Household Members: Spouse Household Members Other:: Cousin Housing: House Do you presently have visiting nurse or other home services: No Unable to assess alcohol history related to: Unknown Alcohol intake: current Alcohol intake frequency: former alcohol drinker Alcohol type: beer, wine and hard liquor Patient Tobacco Use Status: Former Tobacco user Tobacco use type: Cigarette Years Smoked: quit 10 years ago e-Cigarette/Vaping Use: Never Used Second Hand Smoke Exposure: No Substance Use Type: Crack/Cocaine Advance Directives Date on File: 10/23/21 service: No Current occupational status: 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 Meds Allergies Allergy/AdvReac Type Severity Reaction Status Date / Time No Known Allergies Allergy Verified 04/20/24 13:09 [No Known Allergies*] Home Medications ?Medication ?Instructions ?Recorded ?Confirmed ?Last Taken ?Type quetiapine 100 mg tablet 200 mg PO BEDTIME PRN anxiety 03/08/23 02/28/24 06/10/24 History multivitamin 1 tab PO DAILY 02/28/24 06/11/24 History omega 2-idq-keo-fish oil 1,000 mg 1 cap PO BID 02/28/24 Unknown History (120 mg-180 mg) capsule (Fish Oil) bupropion HCl 100 mg tablet,12 hr 100 mg PO QAM 04/20/24 06/11/24 History sustained-release melatonin 3 mg tablet mg PO 04/20/24 06/11/24 History Exam Narrative Narrative: EKG 02/2024 EKG Details: EKG shows normal sinus rhythm with normal EKG ECHO 2023 Conclusions: - Normal left ventricular size and systolic function. There is mildly increased left ventricular wall thickness. The visually estimated ejection fraction is between 55-60%. There is no evidence of regional wall motion abnormalities. Diastolic function is normal for age. - Normal right ventricular cavity size and systolic function. - There is mild dilatation of the ascending aorta measuring 3.50 cm. NM cardiolite stress test 04/2024 IMPRESSION: 1. Myocardial perfusion imaging study shows probably normal myocardial perfusion. 2. Gated LVEF is 63% during stress and 57% during rest. 3. Transient ischemic dilatation not present. EKG component of the test reported separately. Assessment and Plan Final Anesthetic Review Family History of Problems with Anesthesia: No History of Problems with Anesthesia: No Documented by User: Mesha Hemphill MD 06/11/24 08:43 [facility] Past Medical History Medical History Fatty liver Obstructive sleep apnea Essential and other specified forms of tremor Hypersomnolence Snoring Diabetes mellitus Alcoholic ketoacidosis Anxiety with depression Alcohol use disorder, severe, dependence Recurrent moderate major depressive disorder with anxiety Insomnia Alcohol withdrawal History of alcoholic hepatitis HTN (hypertension) Acute hepatitis Alcohol abuse with withdrawal Obesity (BMI 30-39.9) GERD without esophagitis Mixed hyperlipidemia Benign essential hypertension Family History Family History Father Advanced cirrhosis of liver Alcoholic cirrhosis Substance use disorder Mother Dementia Maternal Grandfather Substance use disorder Sister Substance use disorder Maternal Grandfather Colon cancer Prostate cancer Surgical History Surgical History History of esophagogastroduodenoscopy (EGD) H/O colonoscopy Social History Social History Household Members: Spouse Household Members Other:: Cousin Housing: House Do you presently have visiting nurse or other home services: No Unable to assess alcohol history related to: Unknown Alcohol intake: current Alcohol intake frequency: former alcohol drinker Alcohol type: beer, wine and hard liquor Patient Tobacco Use Status: Former Tobacco user Tobacco use type: Cigarette Years Smoked: quit 10 years ago e-Cigarette/Vaping Use: Never Used Second Hand Smoke Exposure: No Substance Use Type: Crack/Cocaine Advance Directives Date on File: 10/23/21 service: No Current occupational status: 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 Meds Allergies Allergy/AdvReac Type Severity Reaction Status Date / Time No Known Allergies Allergy Verified 04/20/24 13:09 [No Known Allergies*] Home Medications ?Medication ?Instructions ?Recorded ?Confirmed ?Last Taken ?Type quetiapine 100 mg tablet 200 mg PO BEDTIME PRN anxiety 03/08/23 02/28/24 06/10/24 History multivitamin 1 tab PO DAILY 02/28/24 06/11/24 History omega 3-jxy-edq-fish oil 1,000 mg 1 cap PO BID 02/28/24 Unknown History (120 mg-180 mg) capsule (Fish Oil) bupropion HCl 100 mg tablet,12 hr 100 mg PO QAM 04/20/24 06/11/24 History sustained-release melatonin 3 mg tablet mg PO 04/20/24 06/11/24 History Exam Airway Mallampati Class: II (denies anything loose) TM Dist: >3cm Neck ROM: Full Heart: rrr Lungs: cta Assessment and Plan Assessment Anesthesia Assessment: Anesthesia Plan Discussed and Chart Reviewed Final Anesthetic Review NPO: Yes ASA Class: III Final Preanesthetic Review: No Changes in Pt Med Stat, Meds/Allgs Chart Reviewed and Consent Obtained/Reviewed Patient Risk: Intermediate Procedure Risk: Intermediate Anesthetic Plan Anesthetic Plan: GA Disposition: Standard PACU
[2024-06-11] VITALS (24 sets, daily range): BP systolic 118–169; BP diastolic 60–87; PULSE 55–81; RESP 12–20; TEMP 36.1–37; O2SAT 92–99; BMI 30.6
--- NOTE | 2024-06-11 08:02 | MHC.SHP ---
Pre-Procedural Eval Section A - 24 Hr Update-Section A only Date of Service: 06/11/24 The patient is an INPATIENT: No Changes since office visit: Yes Patient answered all questions The patient has been examined within 24 hours of the surgical procedure. The History & Physical has been completed within 30 days and I have reviewed it.: Yes Section B - Complete if H&P > 30 days Chief Complaint: Occlusion and stenosis of right carotid artery Allergies: Allergies Allergy/AdvReac Type Severity Reaction Status Date / Time No Known Allergies Allergy Verified 04/20/24 13:09 [No Known Allergies*] Plan I have reviewed the history and physical and performed a pertinent physical examination on my patient. No changes have occurred unless specified. Time Spent With Patient Time: Total time managing care of this patient today ____ minutes.
[2024-06-11] MEDS: Lactated Ringers 1,000 ML 80 ML IVCONT ×3 (08:35→22:18)
--- OUTSIDE RECORDS SUMMARY | 2024-06-11 08:44 | XMS_ITS | Encounter Summary ---
Author Organization [facility] Address [address] [place] [address] Care Team Providers Care Voltage Inspector Name Role Phone Fritz Shelley MD Primary Care Provider +1- [phone] Reason for Visit * Reason Comments Prior Authorization xiaflex Encounter Details Date Type Department Care Team (Late st Contact Info) Description 02/19/2020 Telephone [facility] Urologic Surgery [place] [address] [facility] [address] [place] [phone] Deborah Figueroa MD [address] [facility] [address] [place] [address] Prior Authorization (xiaflex) Social History Tobacco Use [...] on filedocumented in this encounter Care Teams Voltage Inspector Relationship Specialty Start Date End Date Fritz Shelley MD [address] [place] [address] [place] [address] PCP - General Internal Medicine 12/11/19 documented as of this encounter
--- OUTSIDE RECORDS SUMMARY | 2024-06-11 08:44 | XMS_ITS | Encounter Summary ---
Author Organization [facility] Address [address] [place] [address] Care Team Providers Care Board Liner Operator Name Role Phone Fritz Shelley MD Primary Care Provider +1- [phone] Reason for Visit * Reason Comments Other Encounter Details Date Type Department Care Team ([facility] st Contact Info) Description 09/22/2020 Telephone [facility] Urologic Surgery [address] [phone] Nicholas Fernandez MD [address] [place] [address] Other Social History Tobacco Use Types Packs/Day [...] on filedocumented in this encounter Care Teams Board Liner Operator Relationship Specialty Start Date End Date Fritz Shelley MD [address] [place] [address] Dr Tran [address] [place] [address] PCP - General Internal Medicine 12/11/19 documented as of this encounter
--- OUTSIDE RECORDS SUMMARY | 2024-06-11 08:44 | XMS_ITS | Encounter Summary ---
Author Organization [facility] Address [address] [place] [address] Care Team Providers Care Die Cast Die Maker Name Role Phone Fritz Shelley MD Primary Care Provider +1- [phone] Reason for Visit * Reason Comments Appointment Encounter Details Date Type Department Care Team ([facility] st Contact Info) Description 10/22/2020 Telephone [facility] [address] [place] [phone] Nicholas Fernandez MD [address] [address] Appointment Social History Tobacco Use Types Packs/Day [...] on filedocumented in this encounter Care Teams Die Cast Die Maker Relationship Specialty Start Date End Date Fritz Shelley MD [address] [place] [address] Dr Tran [address] [place] [address] PCP - General Internal Medicine 12/11/19 documented as of this encounter
--- OUTSIDE RECORDS SUMMARY | 2024-06-11 08:44 | XMS_ITS | Clinical Summary ---
Author Organization [facility] Address [address] [place] [address] Care Team Providers Care Database Report Writer Name Role Phone Fritz Shelley MD Primary Care Provider +1- [phone] Allergies No known active allergies Medications Medication [...] age to complete this topic Care Teams Database Report Writer Relationship Specialty Start Date End Date Fritz Shelley MD [address] [place] [address] [place] [address] PCP - General Internal Medicine 12/11/19
--- OUTSIDE RECORDS SUMMARY | 2024-06-11 08:44 | XMS_ITS | Data Portability ---
Author Organization ID - [facility], Allergy Address [address] [place] [id number] Care Team Providers Care Shipping And Receiving Name Role Phone LUDY JOHNSON Primary Care [...] drug-induc ed sleep endoscopy (SURG) 2023 024 [id number] Not available 16:39:19 Surgeries None recorded. Imaging None recorded. Medication Orders None recorded. Patient TargetsNo targets recorded. Patient InstructionsNo instructions recorded. Reason for Referral None Reported. Results Created Date Observation Date Name Description Value Unit Range Abnormal Flag Note LastModifiedBy Organization Detail LastModifiedTime 01/16/2001/16/2024 sleep study , diagn ostic (PROC ) No observ ation record ed. [facility] (Medical Records) [address] [place], [address], 01/16/2024 12:21:38 Result Notes None recorded. Problems Name Problem SNOMED Code Status Onset Date Resolution Date Notes Provider Name and Address Organization Details Recorded Time Disorder of upper respirato ry system 421227806 Active 2015 Other specified diseases of upper respirator y tract; Note: Date Diagnosed: 05/23/2015 10:28 AM (J39.8) Not Available [facility] 02:39:14 Obstructi ve sleep apnea syndrome 76413410 Active 2023 DELMY SEGURA MD [address] [place] [address],[place] [address], [place], [id number] , [place] - [facility] 20:44:56 Tremor 54977848 Active 2023 DELMY SEGURA MD [address] [place] [address],[place] [address], [place], [phone] , [place] - [facility] [place] 20:45:03 Chronic insomnia 974867972 Active 2023 DELMY SEGURA MD [address] [place] [address],[place] [address], [place], [phone] , [place] - [facility] 12:08:03 Problem Notes None recorded. Procedures Surgical History Date Name Laterality Status Provider Name and Address Organization Details Recorded Time 01/16/2024 FOL_DP completed DELMY SEGURA MD [address] [place] [address],[place] [address], [place], [phone], [facility] - [facility] 01/13/2024 20:44:48 Imaging Results Imaging Date Name Status LastModified by Organiz ation Details LastModified Time 01/16/2024 sleep study, diagnostic (PROC) completed [facility] (Medical Records) [address] [place], [address], 01/16/2024 12:21:38 Procedure Notes None recorded. Medical [...] mg tablet 2015 active Medicatio n ID: [id number] Du ration Value: 30 Brand Name: quetiapin [...] mg tablet 2015 active Medicatio n ID: [id number] Du ration Value: 30 Brand Name: sertralin [...] 600 mg tablet active Medicatio n ID: [id number] Br and Name: kosta il Send Method: [...] mg tablet 2015 active Medicatio n ID: [id number] Du ration Value: 30 Brand Name: clonazepa [...] layed release 2014 active Medicatio n ID: [id number] Du ration Value: 90 Brand Name: omeprazol [...] Updated DateTime 01/16/2024 170.18 cm 31.3 kg/m2 56278.47 g Kelsey Ba [place] - [facility] 01/16/2024 11:48:17 Social History None recorded. Functional Status None recorded. Mental Status None recorded. Family History Nothing Reported. Medical History No medical history recorded. Past Encounters Encounter ID Performer Location Encounter Start Date Encounter Closed Date Diagnosis/Indication Diagnosis SNOMED-CT Code Diagnosis ICD10 Code Diagnosis Note DELMY SEGURA MD [facility] [address] [phone] 01/16/2024 11:22:17 01/16/2024 13:49:06 Obstructive sleep apnea syndrome 17233210 G47.33 [facility] [place] Tremor [id number] R25.1 Chronic insomnia 5163142 04 F51.04 I am concerned the patient may ultimately not be a good candidate for the inspire implantati on secondary to his chronic insomnia. Encouraged him to continue working with sleep center to get this under control Body mass index 30+ - obesity [id number] Z68.31 Health Concerns Section Related Observation LastModified by Organization Detai ls LastModified Time None Recorded Concern Status LastModified by Organization Details LastModified Time None Recorded Advance Directives Directive None Recorded Payers Encounter Date Sequence Insurance Name Policy Number Policy Brewer Covered Member ID Brewer Member ID Guarantor Name 01/16/[address] [facility] (MEDICAID HMO) JORGE Juan [id number] Jose Miguel Juan Notes Date Note Type [...] 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
[2024-06-11 08:45] LABS: Glucose, Whole Blood 124 mg/dL (60-115)
--- NOTE | 2024-06-11 08:55 | ECG_ITS ---
Test Reason : hystory of cocaine abuse Blood Pressure : */* mmHG Vent. Rate : 55 BPM Atrial Rate : 55 BPM P-R Int : 208 ms QRS Dur : 94 ms QT Int : 436 ms P-R-T Axes : -5 -3 29 degrees QTcB Int : 417 ms Sinus bradycardia Otherwise normal ECG When compared with ECG of 13-Nov-2023 20:43, Vent. rate has decreased by 43 bpm Referred By: Mesha Hemphill Electronically Signed By: ISRA HERNANDEZ MD
[2024-06-11 09:07] LABS: Hematocrit 30.1 % (42.0-52.0); Hemoglobin 10.2 g/dl (14.0-18.0); Mean Corpuscular HGB Conc 33.9 g/dl (31.0-36.0); Mean Corpuscular Volume 88.5 fL (80.0-98.0); Mean Platelet Volume 9.8 fL (9.4-12.4); Platelet Count 251 X10*3/uL (160-400); Red Cell Distribution Width 13.4 % (11.0-16.0); White Blood Count 5.2 X10*3/uL (4.8-10.8)
[2024-06-11 09:11] LABS: Prothrombin Time 12.2 SEC (10.9-12.4)
[2024-06-11 09:14] LABS: Partial Thromboplastin Time 32.7 SEC (26.0-36.8)
[2024-06-11 09:23] LABS: Anion Gap 15 (12-20); Blood Urea Nitrogen 25 mg/dL (9-16); Calcium 8.8 mg/dL (8.4-10.2); Carbon Dioxide 27 mmol/L (22-29); Chloride 108 mmol/L (96-108); Creatinine Clr Calc Pharmacy 55.1; Estimated Glomerular Filt Rate 45; Glucose Random 128 mg/dL (60-115); Sodium 146 mmol/L (135-145)
[2024-06-11] MEDS: ceFAZolin Sodium/Dextrose,Iso 2 GM/50 ML PIGGYBACK IV ×2 (09:25→15:18)
--- NOTE | 2024-06-11 12:20 | P.OP_ITS ---
Operative Note Operative Note Date of Service: 06/11/24 Narrative: Operative note by [facility] Preoperative diagnosis:1. Right Carotid stenosis Postoperative diagnosis: Same Procedure: Right Carotid endarterectomy with patch angioplasty Surgeon:Gerardo Bellamy M.D. Electrical Tech/Project Manager: Kylie Cole Anesthesia: General Specimens: 1 Drains: 1 Estimated blood loss: 100 mL Indications: 58-year-old gentleman with high-grade right carotid stenosis which was confirmed on CT angiogram on 11/13/2023 The patient has signed the informed consent after reviewing risks, complications, benefits, and alternatives previously discussed with the patient. The patient was given the opportunity to ask any additional questions or voice any concerns. All questions were answered to the patient's satisfaction. Procedure in detail: Patient was taken to the operating room and placed in a supine position and prepped and draped in sterile manner with ChloraPrep. Longitudinal incision was made along the anterior border of the right sternocleidomastoid carried down through the subcutaneous fat and fascia. Hemostasis was obtained with electrocautery. The platysma muscle was then divided. The carotid sheath was identified in open. The vagus nerve, Ancef cervicalis, and hypoglossal nerves were identified and avoided. The common internal and external carotids were then freed from the surrounding tissue. At this point, 5000 units of heparin was administered and allowed to circulate for 5 minutes time to take effect. The internal, common, external carotids were clamped in that order. Once this was accomplished, we proceeded with the procedure. The carotid bulb was opened with an 11 blade and extended with Gorman scissors through the very tight lesion into normal internal carotid artery. This was then extended down into the common carotid artery. We then placed a Johns shunt. Then the plaque was sharply excised proximally and an eversion endarterectomy was performed successfully at the external. The plaque tapered nicely on to the internal and no tacking sutures were necessary. Heparinized saline was injected and no evidence of flapping or other debris was noted. The remaining carotid was examined, which showed no debris or flaps present. At this point a XenoSure patch was brought on to the field. This was anastomosed to the artery using a 6 0 Prolene in a running fashion. Once approximately 4/5 of the patch was sewn in the shunt was then removed. Prior to the last stitch the internal carotid was back bled through this. Heparinized saline was instilled into the carotid. The last stitch was tied. Hemostasis was exc ellent. The internal carotid was gently occluded while while of the external and internal were open in that order. Finally the internal was then opened and flow was restored to the entire system. Hemostasis was achieved with interrupted 7-0 Prolene sutures. The wound was irrigated thoroughly. We then placed a 7 flat Jr-Handy drain. Deep layer was reapproximated using a 2-0 poly Sorb and finally the superficial layer with a 3-0 Polysorb. The skin was closed in a subcuticular manner. The patient awoke and neurologic status was checked and appeared to be intact. Sponge, needle and instrument counts were correct. The patient tolerated the procedure well. Returned to recovery with stable vitals. This note is constructed using voice recognition software. While every effort has been made to ensure accuracy, deputy director of finance errors may have been included. Thank you for allowing me to participate in the care of your patient. Yours sincerely, Gerardo Bellamy MD, FACS, R.P.V.I.
[2024-06-11] MEDS: fentaNYL citrate/PF 100 MCG/2 ML VIAL 50 MCG IVPUSH (12:40)
[2024-06-11] MEDS: Acetaminophen 325 MG TABLET 650 MG PO ×2 (13:08→21:05)
[2024-06-11] MEDS: Morphine Sulfate 2 MG/ML CARTRIDGE IVPUSH (14:10)
[2024-06-11] MEDS: HYDROmorphone HCl 0.5 MG/0.5 ML SYRINGE IVPUSH ×4 (15:10→23:59)
[2024-06-11] MEDS: 0.9 % Sodium Chloride Flush 3 ML SYRINGE IVFLUSH (15:15)
--- NOTE | 2024-06-11 16:45 | P.HPCC_ITS ---
History of Present Illness Date of Service: 06/11/24 Chief Complaint: Here for an elective surgery 58-year-old gentleman with past medical history of bipolar disorder, MDD, GERD, HLD, alcohol use disorder, and DM presented to the hospital for an elective right carotid endarterectomy for high-graded R carotid stenosis. He underwent the procedure successfully without any complication this morning. He Is admitted to the ICU for postop monitoring Review of Systems 2 Constitutional: Constitutional: Denies body ache(s) and Denies chills Eyes: Eyes: Denies blurry vision, Denies exophthalmos and Denies change in vision ENT: Denies Normal hearing present and Denies bleeding gums Cardiovascular: Cardiovascular: Denies Abdominal Distension and Denies acrocyanosis Respiratory: Respiratory: Denies change in phlegm color, Denies chest congestion and Denies cough Genitourinary: Genitourinary: Denies hematuria and Denies oliguria Neurologic: Denies Normal hearing present, Denies Neuro-related abnormal movements and Denies Abnormal speech present [facility] Past Medical History Medical History History of varicose veins Fatty liver Obstructive sleep apnea Essential and other specified forms of tremor Hypersomnolence Snoring Diabetes mellitus Alcoholic ketoacidosis Anxiety with depression Alcohol use disorder, severe, dependence Recurrent moderate major depressive disorder with anxiety Insomnia Alcohol withdrawal History of alcoholic hepatitis HTN (hypertension) Acute hepatitis Alcohol abuse with withdrawal Obesity (BMI 30-39.9) GERD without esophagitis Mixed hyperlipidemia Benign essential hypertension Family History Family History Father Advanced cirrhosis of liver Alcoholic cirrhosis Substance use disorder Mother Dementia Maternal Grandfather Substance use disorder Sister Substance use disorder Maternal Grandfather Colon cancer Prostate cancer Surgical History Surgical History History of esophagogastroduodenoscopy (EGD) H/O colonoscopy Social History Social History Household Members: Significant Other Household Members Other:: Cousin Housing: House Do you presently have visiting nurse or other home services: No Unable to assess alcohol history related to: Unknown Alcohol intake: current Alcohol intake frequency: former alcohol drinker Alcohol type: beer, wine and hard liquor Patient Tobacco Use Status: Former Tobacco user Tobacco use type: Cigarette Years Smoked: quit 10 years ago e-Cigarette/Vaping Use: Never Used Second Hand Smoke Exposure: No Use of substances other than those prescribed or required for medical reasons: No Substance Use Type: Crack/Cocaine Have you been hit, kicked, punched, or otherwise hurt by someone within the past year? If so, by whom?: No Do you feel safe in your current relationship?: Yes Is there a partner from a previous relationship who is making you feel unsafe now?: No Are you made to feel afraid or neglected: No Spiritual Healthcare Practices: none per patient Synagogue Healthcare Practices: none per patient Cultural Healthcare Practices: none per patient Are you DNR?: No Advance Directives: No Advance Directives Information Provided: Yes Advance Directives on File: Yes Advance Directives Date on File: 10/23/21 Do you have a plan to hurt others: No Plan Recently lost weight without trying: No Eating poorly because of decreased appetite: No Nutrition Risks: No Nutritional Risk Poor oral hygiene: No service: No Current occupational status: 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 Meds Allergies Allergy/AdvReac Type Severity Reaction Status Date / Time No Known Allergies Allergy Verified 04/20/24 13:09 [No Known Allergies*] Active Medications: Current Medications Acetaminophen (Acetaminophen 325 Mg Tablet) 650 mg PO Q6H PRN PRN Reason: Pain, Mild 1-3,fever,headache Last Admin: 06/11/24 13:08 Dose: 650 mg Calcium Carbonate (Calcium Carbonate 750 Mg Tab.Chew) 750 mg PO Q4H PRN PRN Reason: Heartburn Fentanyl (Fentanyl Citrate/Pf 100 Mcg/2 Ml Vial) 50 mcg IVPUSH Q5M PRN PRN Reason: Pain, Moderate to Severe (Pain Scale 4-10) Stop: 06/11/24 16:57 Last Admin: 06/11/24 12:40 Dose: 50 mcg Hydromorphone HCl (Hydromorphone Hcl 0.5 Mg/0.5 Ml Syringe) 0.5 mg IVPUSH Q2H PRN; Protocol PRN Reason: Pain, Severe (Pain Scale 7-10) Last Admin: 06/11/24 15:10 Dose: 0.5 mg Lactated Ringer's (Lr) 1,000 mls @ 80 mls/hr IVCONT .[id number] [facility] Last Admin: 06/11/24 14:11 Dose: 80 mls/hr Magnesium Hydroxide (Milk Of Magnesia 30 Ml Oral.Susp) 30 ml PO DAILY PRN PRN Reason: Constipation Melatonin (Melatonin 3 Mg Tablet) 6 mg PO BEDTIME PRN PRN Reason: Insomnia Naloxone HCl (Naloxone Hcl 0.4 Mg/Ml Vial) 0.04 mg IVPUSH Q5M PRN PRN Reason: Excessive sedation or RR < 8 Ondansetron HCl (Ondansetron Hcl 4 Mg/2 Ml Vial) 4 mg IVPUSH ONCE PRN PRN Reason: Nausea and Vomiting Stop: 06/11/24 16:57 Oxycodone HCl (Oxycodone Hcl Immed Release 5 Mg Tablet) 5 mg PO ONCE PRN PRN Reason: Pain, Moderate(Pain Scale 4-6) if no IV Access Stop: 06/11/24 16:57 Oxycodone HCl (Oxycodone Hcl Immed Release 5 Mg Tablet) 5 mg PO Q4H PRN PRN Reason: Pain, Moderate(Pain Scale 4-6) Sodium Chloride (0.9 % Sodium Chloride Flush 3 Ml Syringe) 3 ml IVFLUSH QSHIFT [facility] Last Admin: 06/11/24 15:15 Dose: 3 ml Home Medications ?Medication ?Instructions ?Recorded ?Confirmed ?Last Taken ?Type quetiapine 100 mg tablet 200 mg PO BEDTIME PRN anxiety 03/08/23 02/28/24 06/10/24 History multivitamin 1 tab PO DAILY 02/28/24 06/11/24 History omega 4-ayt-veq-fish oil 1,000 mg 1 cap PO BID 02/28/24 Unknown History (120 mg-180 mg) capsule (Fish Oil) bupropion HCl 100 mg tablet,12 hr 100 mg PO QAM 04/20/24 06/11/24 History sustained-release melatonin 3 mg tablet mg PO 04/20/24 06/11/24 History Physical Exam 2 Vital Signs: Vital Signs: Last Vital Signs Temp 97.3 F 06/11/24 13:31 Pulse 71 06/11/24 16:00 Resp 15 06/11/24 16:00 BP 150/78 H 06/11/24 16:00 Pulse Ox 94 06/11/24 16:00 O2 Del Method Room Air 06/11/24 16:00 O2 Flow Rate 3 06/11/24 13:31 BMI result Body Mass Index 30.6 General: Not in any acute distress Nutritional Appearance: well nourished and overweight Eyes: appearance normal, both eyes and all related structures; Alignment and Position: alignment normal and position normal Neck: No lymphadenopathy, no thyromegaly Resp: bilateral air entry equal, occasional added sounds present Cardio: Regular rate, regular rhythm; Heart sounds: S1 normal heart sound present and S2 normal heart sound present GI: soft, nontender, no guarding, no hepatosplenomegaly : bladder normal to inspection, bladder normal to palpation, no renal angle tenderness Skin: no rashes or lesions noted and elasticity normal Neuro: oriented to person, oriented to place, oriented to time and moves all extremities Neuro: Cranial nerves: No Normal hearing present Speech: No Abnormal speech present Results Labs 06/11/24 08:51 06/11/24 08:51 Labs: Laboratory Results - last 24 hr 06/11/24 06/11/24 06/11/24 08:42 08:50 08:51 MCV 88.5 MCH 30.0 MCHC 33.9 RDW 13.4 Plt Count 251 D MPV 9.8 Absolute Nucleated RBC 0.000 Nucleated RBC % (auto) 0.0 PT 12.2 INR 1.0 APTT 32.7 Anion Gap 15 Estim Creat Clear Calc 55.1 Estimated GFR 45 POC Glucose 124 H Random Glucose 128 H Calcium 8.8 Blood Type O Positive Antibody Screen NEGATIVE Assessment and Plan (1) Bipolar disorder, current episode depressed, severe, without psychotic features: Status: Acute (2) Recurrent moderate major depressive disorder with anxiety: Status: Acute (3) MDD (major depressive disorder), recurrent severe, without psychosis: Status: Acute (4) Mixed hyperlipidemia: Status: Acute (5) Carotid stenosis, right: Status: Acute (6) GERD without esophagitis: Status: Acute Plan 58-year-old gentleman with past medical history of bipolar disorder, MDD, GERD, HLD, alcohol use disorder, and DM presented to the hospital for an elective right carotid endarterectomy for high-graded R carotid stenosis. He underwent the procedure successfully without any complication this morning. He Is admitted to the ICU for postop monitoring Right carotid stenosis: Underwent carotid endarterectomy this morning, procedure uneventful. We will closely monitor his blood pressures, avoid hypertension. We will closely watch for any signs of bleeding, dysphagia or dysphonia Hypertension: On labetalol at home, we will restart Diabetes mellitus: Hemoglobin A1c 6.9, not on any home insulin We will do sliding scale insulin as needed Acute kidney injury: Possibly secondary to NPO status Creatinine bumped up to 1.6 from 0.8 We will closely monitor, continue LR at 100 cc/hour Chronic alcoholism: last drink was over 6 weeks ago, no risk for withdrawal. Total time managing care of this patient today: 35 minutes.
[2024-06-11] MEDS: Labetalol HCL 200 MG TABLET PO ×2 (17:18→19:37)
[2024-06-11 17:28] LABS: Glucose, Whole Blood 189 mg/dL (60-115)
[2024-06-11] MEDS: Insulin Lispro 100 UNIT/ML 3 ML VIAL SUBCUT ×2 (17:31→20:52)
[2024-06-11] MEDS: LORazepam 2 MG/ML VIAL 1 MG IVPUSH (17:55)
--- NOTE | 2024-06-11 18:20 | PC.NURSE ---
Patient post op carotid surgery day 1 - small staining to dressing noted upon arrival from PACU - outlined. Patient medicated per EMAR for 10/18 pain w/ some relief. SBP maintaining 160-170's, patient tremulous, c/o of anxiety - MD notified and medicated per EMAR. Care ongoing.
[2024-06-11] MEDS: QUEtiapine Fumarate 100 MG TABLET PO (19:48)
--- NOTE | 2024-06-11 19:54 | PHA.MEDREC ---
Addendum entered by Audrey Niño RPh 06/11/24 20:14: reviewed by [facility]. Original Note: Pharmacy Consult ? Medication Reconciliation Pharmacy has completed the medication reconciliation. Spoke with patient and he confiremd his medicaiotns. Patient confirmed he is taking the Bupropion 200mg tab once daily. He confirmed he is taking the Labetalol 300mg tab twice a day now and claims his Dr recently changed that but we have no claims for that and I called [facility] they have not gotten any updated scripts for Labetalol 300mg tabs twice a day, they confirmed he got the Labetoalol 300mg once at bedtime last 04/10 for 90 days. He states he is taking the Ropinirole 3mg tab as needed for restlessness. He confirmed he took his morning medications this morning except for the Metformin 1000mg tab he last took that last night due to the surgery this morning.
[2024-06-11] MEDS: Atorvastatin Calcium 80 MG TABLET PO (20:49)
[2024-06-11 20:52] LABS: Glucose, Whole Blood 206 mg/dL (60-115)
[2024-06-11] MEDS: oxyCODONE HCl Immed Release 5 MG TABLET PO (21:03)
[2024-06-11] MEDS: Sucralfate Oral Suspension 1 GM/10 ML ORAL.SUSP PO (21:03)
[2024-06-11] MEDS: Melatonin 3 MG TABLET 6 MG PO (22:16)
[2024-06-12] VITALS (16 sets, daily range): BP systolic 96–187; BP diastolic 62–102; PULSE 60–76; RESP 11–20; TEMP 36.3–36.4; O2SAT 91–96; BMI 30.6
[2024-06-12] MEDS: Acetaminophen 325 MG TABLET 650 MG PO (02:13)
--- NOTE | 2024-06-12 04:39 | PC.NURSE ---
Upon initial assessment at 1900- family at bedside. Pt A&Ox4, cooperative but admittedly anxious. Therapeutic communication utilized and reassurance given; home medications restarted by [facility]. C/o R CEA incision pain and headache, PRN medications administered per MAR with good effect per pt. Afebrile. NSR on tele, HR 60-80s. A-line to L radial with optimally dampened waveform, SBP maintained < 170. SpO2 > 92% on room air. Tolerating PO intake. No BM. Sue in place, UOP as charted. Skin overall intact- R CEA dressing with small staining outline. Pt/family aware of pt status/plan of care. Bed locked in lowest position, alarm on, call ambriz in reach. See EMR/flowsheet for further details.
[2024-06-12 04:42] LABS: MANUAL DIFF FLAG NO
[2024-06-12 04:44] LABS: Basophils Percent Auto 0.3 % (0-2); Eosinophils Absolute Auto 0.1 X10*3/uL (0.0-0.4); Eosinophils Percent Auto 1.2 % (0-4); Hemoglobin 8.9 g/dl (14.0-18.0); Imm Gran Abs Auto 0.03 X10*3/uL (0.00-0.03); Imm Gran Pct Auto 0.5 % (0.0-0.4); Lymphocytes Absolute Auto 1.2 X10*3/uL (1.2-4.9); Lymphocytes Percent Auto 18.7 % (20-40); Mean Corpuscular HGB Conc 34.2 g/dl (31.0-36.0); Mean Corpuscular Hemoglobin 30.2 pg (27.0-33.0); Mean Corpuscular Volume 88.1 fL (80.0-98.0); Mean Platelet Volume 9.5 fL (9.4-12.4); Monocytes Absolute Auto 0.5 X10*3/uL (0.1-1.2); Monocytes Percent Auto 7.8 % (2-11); Neutrophils Absolute Auto 4.7 x10*3/uL (2.0-8.3); Neutrophils Percent Auto 71.5 % (45-73); Platelet Count 232 X10*3/uL (160-400); Red Blood Count 2.95 X10*6/uL (4.60-5.80); Red Cell Distribution Width 13.4 % (11.0-16.0); White Blood Count 6.5 X10*3/uL (4.8-10.8)
[2024-06-12 05:28] LABS: Alanine Aminotransferase 22 U/L (0-40); Albumin Level 3.6 g/dL (3.5-5.0); Alkaline Phosphatase 43 U/L (39-117); Anion Gap 15 (12-20); Aspartate Amino Transferase 19 U/L (5-37); Bilirubin Total 0.3 mg/dL (0.0-1.0); Blood Urea Nitrogen 18 mg/dL (9-16); Calcium 7.9 mg/dL (8.4-10.2); Carbon Dioxide 25 mmol/L (22-29); Chloride 106 mmol/L (96-108); Creatinine Clr Calc Pharmacy 73.6; Estimated Glomerular Filt Rate > 60; Glucose Random 158 mg/dL (60-115); Magnesium 1.3 mg/dL (1.6-2.6); Phosphorus 3.8 mg/dL (2.7-4.5); Potassium 3.6 mmol/L (3.3-5.1); Sodium 142 mmol/L (135-145); Total Protein 6.1 g/dL (6.5-8.0)
[2024-06-12] MEDS: Magnesium Sulfate/H2O 2 GM/50 ML PIGGYBACK IV ×2 (05:49→07:27)
[2024-06-12] MEDS: HYDROmorphone HCl 0.5 MG/0.5 ML SYRINGE IVPUSH ×2 (05:50→10:47)
[2024-06-12] MEDS: Omeprazole 20 MG CAPSULE.DR PO (05:50)
[2024-06-12] MEDS: ondansetron HCL 4 MG/2 ML VIAL IVPUSH (06:27)
[2024-06-12] MEDS: oxyCODONE HCl Immed Release 5 MG TABLET PO ×2 (07:26→13:36)
[2024-06-12] MEDS: 0.9 % Sodium Chloride Flush 3 ML SYRINGE IVFLUSH (07:26)
[2024-06-12 07:29] LABS: Glucose, Whole Blood 139 mg/dL (60-115)
[2024-06-12] MEDS: Labetalol HCL 200 MG TABLET PO (08:02)
[2024-06-12] MEDS: buPROPion HCl XL 150 MG TAB.ER.24H PO (08:03)
--- NOTE | 2024-06-12 09:20 | HO.POSTANES ---
Post Anesthesia Evaluation Post Anesthesia Evaluation Date of Service: 06/12/24 Vital Signs: Vital Signs Temp Pulse Pulse Resp BP BP Pulse Ox 06/12/24 08:00 97.5 F 69 18 127/64 92 06/12/24 07:31 71 128/65 06/12/24 07:00 76 18 141/71 H 95 06/12/24 06:00 73 11 L 147/72 H 94 06/12/24 05:50 18 06/12/24 05:00 71 15 149/73 H 92 06/12/24 04:00 97.6 F 71 15 143/70 H 94 06/12/24 04:00 71 137/68 06/12/24 03:00 73 15 136/69 92 06/12/24 02:00 71 15 144/72 H 92 06/12/24 01:00 75 17 143/74 H 96 06/12/24 00:00 97.4 F 73 16 128/67 94 06/12/24 00:00 74 129/65 06/11/24 23:59 20 06/11/24 23:00 78 17 118/60 95 06/11/24 22:00 69 12 119/62 92 O2 Del Method 06/12/24 08:00 Room Air 06/12/24 07:31 06/12/24 07:00 Room Air 06/12/24 06:00 Room Air 06/12/24 05:50 06/12/24 05:00 Room Air 06/12/24 04:00 Room Air 06/12/24 04:00 06/12/24 03:00 Room Air 06/12/24 02:00 Room Air 06/12/24 01:00 Room Air 06/12/24 00:00 Room Air 06/12/24 00:00 06/11/24 23:59 06/11/24 23:00 Room Air 06/11/24 22:00 Room Air Anesthesia: General Endotracheal-GETA Mental Status: Awake Pain Control: Satisfactory Nausea/Vomiting: None Hydration: Adequate Anesthesia-Related Issues: No Anes. Related Issues
[2024-06-12 11:25] LABS: Glucose, Whole Blood 144 mg/dL (60-115)
--- NOTE | 2024-06-12 12:33 | MHC.CM.PN ---
Pt admitted to ICU for vascular surgery: stable for d/c. Pt offers no barriers to care needs: has transportation.
--- NOTE | 2024-06-12 12:46 | P.DS_ITS ---
DS: Providers Provider Date of Service: 06/12/24 Date of admission: 06/11/24 08:20 Date of discharge: 06/12/24 Primary care physician: Miky Avitia [facility] DS: Diagnosis Discharge Diagnosis (1) Bipolar disorder, current episode depressed, severe, without psychotic features: Status: Acute (2) Recurrent moderate major depressive disorder with anxiety: Status: Acute (3) MDD (major depressive disorder), recurrent severe, without psychosis: Status: Acute (4) Mixed hyperlipidemia: Status: Acute (5) Carotid stenosis, right: Status: Acute (6) GERD without esophagitis: Status: Acute DS: Summary Hospital Course Hospital Course: Jose Miguel is post op day 1 from a right carotid endarterectomy. He has done very well. He is OOB today and has been eating/drinking well. He does endorse pain at the carotid incision site. We removed the YEIMY drain earlier this morning, with a total volume post-op to this morning of 30mL. His Sue and A-line have been removed and he is off of IVF. He has voided post cath removal. I discussed with him to not drive for 2w, do not lift anything heavy, and that he can shower today. We discussed to remove the bandage from the drain tomorrow. I discussed with him that the steri-strips should fall off on their own in a week or two. I discussed that if he gets headaches, any CVA symptoms, lightheadedness, dizziness, etc, that he needs to present to the ER. We sent in a prescription for Percocet to his pharmacy. We discussed to use Tylenol or Ibuprofen before using the Percocet for low-medium pain control. We will follow up with him in the office in 2 weeks, on 06/21/[address] Bellamy. If there are any questions or concerns, please do not hesitate to reach out to us. Time Attestation Discharge Coordination Time (in mins): 45 Quality: Safe Use of Opioids Does Pt have an Active Cancer Diagnosis on the Problem List?: No Quality: Stroke Does the patient have a stroke diagnosis?: No Physical Exam Vital Signs: Vital Signs: Last Vital Signs Temp 97.5 F 06/12/24 08:00 Pulse 60 06/12/24 11:00 Resp 15 06/12/24 11:00 BP 187/102 H 06/12/24 11:00 Pulse Ox 91 L 06/12/24 11:00 O2 Del Method Room Air 06/12/24 11:00 O2 Flow Rate 3 06/11/24 13:31 BMI result Body Mass Index 30.6 Const: General: comfortable and no acute distress Orientation/consciousness: patient oriented x3 HEENT: Ears: hearing grossly normal bilaterally Resp: Effort & Inspection: normal respiratory effort and able to speak in complete sentences Auscultation: clear to auscultation bilaterally Cardio: Rate: regular rate Rhythm: regular rhythm Heart sounds: S1 normal heart sound present and S2 normal heart sound present Bruits: no abdominal aortic bruits, no carotid bruits, no femoral bruits and no renal bruits GI: Palpation (GI): No Abdominal aortic bruit present Neuro: General: patient oriented x3 Cranial nerves: Yes CN's II-XII intact bilaterally DS: Data Data Completed and Pending Completed studies during hospitalization [Text1]: Procedures Detoxification Services for Substance Abuse Treatment (11/14/23) Drainage of Right Axilla, Open Approach (10/22/21) Pending studies at discharge: Pending at discharge 06/11/24 11:09 Surgical [PTH] Routine Labs on day of discharge: Laboratory Results - last 24 hr 06/11/24 06/11/24 06/12/24 17:24 20:48 04:07 WBC 6.5 RBC 2.95 L Hgb 8.9 L Hct 26.0 L MCV 88.1 MCH 30.2 MCHC 34.2 RDW 13.4 Plt Count 232 MPV 9.5 Immature Gran % (Auto) 0.5 H Neut % (Auto) 71.5 Lymph % (Auto) 18.7 L [place] % (Auto) 7.8 Eos % (Auto) 1.2 Baso % (Auto) 0.3 Lymph # (Auto) 1.2 [place] # (Auto) 0.5 Eos # (Auto) 0.1 Baso # (Auto) 0.0 Abs Immat Gran (auto) 0.03 Absolute Neuts (auto) 4.7 Absolute Nucleated RBC 0.000 Nucleated RBC % (auto) 0.0 Sodium 142 Potassium 3.6 Chloride 106 Carbon Dioxide 25 Anion Gap 15 BUN 18 H Creatinine 1.19 Estim Creat Clear Calc 73.6 Estimated GFR > 60 POC Glucose 189 H 206 H Random Glucose 158 H Calcium 7.9 L D Phosphorus 3.8 Magnesium 1.3 L* Total Bilirubin 0.3 AST 19 ALT 22 Alkaline Phosphatase 43 Total Protein 6.1 L Albumin 3.6 06/12/24 06/12/24 07:25 11:22 WBC RBC Hgb Hct MCV MCH MCHC RDW Plt Count MPV Immature Gran % (Auto) Neut % (Auto) Lymph % (Auto) [place] % (Auto) Eos % (Auto) Baso % (Auto) Lymph # (Auto) [place] # (Auto) Eos # (Auto) Baso # (Auto) Abs Immat Gran (auto) Absolute Neuts (auto) Absolute Nucleated RBC Nucleated RBC % (auto) Sodium Potassium Chloride Carbon Dioxide Anion Gap BUN Creatinine Estim Creat Clear Calc Estimated GFR POC Glucose 139 H 144 H Random Glucose Calcium Phosphorus Magnesium Total Bilirubin AST ALT Alkaline Phosphatase Total Protein Albumin Discharge Plan Discharge Anticipated Discharge Date/Time: 06/12/24 12:43 Patient Disposition: Home, Self-Care Discharge Diagnosis: s/p right carotid endarterectomy Referrals: Physician,Unknown J [Physician] - 1 Week Discharge Medications: New oxycodone-acetaminophen [Percocet] 5-325 mg tablet 1 tab PO Q8H PRN (Reason: pain) Qty: 10 0RF Rx Instructions: Partial Fill upon patient request. Continued tadalafil [Cialis] 5 mg tablet 5 mg PO DAILY PRN (Reason: sexual activity) 10 Days Qty: 10 2RF Rx Instructions: administer approximately 30min before sexual activity; do not use more than 1 dose per 24hrs multivitamin Tablet 1 tab PO DAILY metformin 1,000 mg tablet 1,000 mg PO BID 90 Days Qty: 180 1RF pantoprazole 40 mg tablet,delayed release (DR/EC) 40 mg PO DAILY@0630 Qty: 90 1RF rosuvastatin 40 mg tablet 40 mg PO BEDTIME Qty: 90 2RF Dulcolax (magnesium hydroxide) 600 mg Tablet,Chewable 1,200 mg PO DAILY PRN (Reason: Constipation) labetalol 300 mg tablet 300 mg PO BID bupropion HCl 200 mg tablet sustained-release 12 hr 200 mg PO DAILY ropinirole 3 mg tablet 3 mg PO BEDTIME PRN (Reason: Restlessness) Rx Instructions: administer 1-3 hours before bedtime, for restless legs, cannot drink alcohol while on med Nugenix 3 tab PO DAILY quetiapine 100 mg tablet 200 - 300 mg PO BEDTIME PRN (Reason: anxiety) melatonin 3 mg tablet 3 - 9 mg PO BEDTIME PRN (Reason: Sleep) sucralfate 100 mg/mL suspension 10 ml PO BEDTIME Qty: 400 3RF Discharge Orders: Discharge Order (Routine); Ordered 06/12/24 Ordered By: Kylie Watson Diet: Advance to usual diet Activity on Discharge: As tolerated Stand Alone Forms: Patient Portal Discharge page Print Language: Thai Care Plan Goals: S/p right carotid endarterectomy Health Concerns: carotid stenosis Plan of Treatment: Pt is post op day 1 from a right carotid endarterectomy. Skin glue was used and you may shower as early as tomorrow. Take it easy today and you may ambulate around the house. Within 24 hours you can resume normal activity. NO driving for 2 weeks, until your follow up. You may climb a flight of stairs as tolerated Do not lift anything heavier than a gallon of milk for [address] Bellamy in follow-up on 06/21/24. Please see above for any change in medications If you notice excessive bleeding from the neck, please immediately call my office or return to the emergency room. Assessment: s/p right carotid endarterectomy
== END 2024-06-12 14:33 | disposition home or self-care (01) | DRG 24 ==
LOC: HO.SSSA 08:25 → HO.ICU 12:24
PROVIDERS: Physician Assistant Medical; Admitting Provider Surgery Vascular Surgery; PCP Nurse Practitioner Family; Visit Provider Surgery Vascular Surgery
PROC: 03CH0ZZ Extirpation of Matter from Right Common Carotid Artery, Open Approach (ICD-10-PCS; CPT 35301; principal; 2024-06-11 09:30)
DX: I65.21 Occlusion and stenosis of right carotid artery (principal); N17.9 Acute kidney failure, unspecified; F31.9 Bipolar disorder, unspecified; I10 Essential (primary) hypertension; F11.20 Opioid dependence, uncomplicated; Z79.84 Long term (current) use of oral hypoglycemic drugs; Z87.891 Personal history of nicotine dependence; Z79.899 Other long term (current) drug therapy
CPT/HCPCS: 36415; 80048; 80053; 82947; 83735; 84100; 85025; 85027; 85610; 85730; 86850; 86900; 86901; 88304; 93005; A4649; C1768; J0330; J0461; J0690; J1100; J1171; J1644; J2003; J2060; J2250; J2270; J2305; J2405; J2598; J2704; J2795; J3010; J3475; J7120

== ENCOUNTER → 2024-06-11 08:20 | Outpatient (BNV) | payer MEDICAID, SELFPAY | PROVIDERS: Admitting Provider Surgery Vascular Surgery; Visit Provider Internal Medicine Critical Care Medicine | DX: F31.4 Bipolar disorder, current episode depressed, severe, without psychotic features (principal); F41.9 Anxiety disorder, unspecified; I65.21 Occlusion and stenosis of right carotid artery; E78.2 Mixed hyperlipidemia; K21.9 Gastro-esophageal reflux disease without esophagitis | CPT/HCPCS: 99222 ==

== ENCOUNTER → 2024-06-11 08:20 | Outpatient (BNV) | payer MEDICAID, SELFPAY | PROVIDERS: Admitting Provider Surgery Vascular Surgery; Visit Provider Surgery Vascular Surgery | DX: F31.4 Bipolar disorder, current episode depressed, severe, without psychotic features (principal); F33.1 Major depressive disorder, recurrent, moderate; F41.9 Anxiety disorder, unspecified; F33.2 Major depressive disorder, recurrent severe without psychotic features; E78.2 Mixed hyperlipidemia; I65.21 Occlusion and stenosis of right carotid artery; K21.9 Gastro-esophageal reflux disease without esophagitis | CPT/HCPCS: 99239 ==

== ENCOUNTER 2024-06-21 10:50 | Outpatient (AMB) | payer MEDICAID, SELFPAY ==
--- NOTE | 2024-06-21 10:53 | MHC.OFFVIS ---
Intake Visit Reasons: 2 week follow up s/p R CEA 06/11/24 Intake Note: 2 week follow up s/p Right CEA 06/11/24, Pt states headache, fatigue and shortness of breath since surgery but getting better daily, going to the gym daily as well. 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 He states he continues with headaches and tiredness/lethargy. He does have a lengthy history of headaches and lethargy. He states the headaches seem to be getting a little bit better. He states he also gets some shortness of breath when he bends over. He states this has been getting better too. He states he has been getting to the gym every day and we will be starting work again on Tuesday. He states he also has concerns at the site he states it feels very bumpy at the incision. He denies any stroke-like symptoms. He denies any weakness. He denies any difficulty with swallowing, eating, or drinking. [facility] Medical History History of varicose veins Fatty liver Obstructive sleep apnea Essential and other specified forms of tremor Hypersomnolence Snoring Diabetes mellitus Alcoholic ketoacidosis Anxiety with depression Alcohol use disorder, severe, dependence Recurrent moderate major depressive disorder with anxiety Insomnia Alcohol withdrawal History of alcoholic hepatitis HTN (hypertension) Acute hepatitis Alcohol abuse with withdrawal Obesity (BMI 30-39.9) GERD without esophagitis Mixed hyperlipidemia Benign essential hypertension Surgical History History of right-sided carotid endarterectomy History of esophagogastroduodenoscopy (EGD) H/O colonoscopy Family History Father Advanced cirrhosis of liver Alcoholic cirrhosis Substance use disorder Mother Dementia Maternal Grandfather Substance use disorder Sister Substance use disorder Maternal Grandfather Colon cancer Prostate cancer Social History Household Members: Significant Other Household Members Other:: Cousin Housing: House Do you presently have visiting nurse or other home services: No Unable to assess alcohol history related to: Unknown Alcohol intake: current Alcohol intake frequency: former alcohol drinker Alcohol type: beer, wine and hard liquor Patient Tobacco Use Status: Former Tobacco user Tobacco use type: Cigarette Years Smoked: quit 10 years ago e-Cigarette/Vaping Use: Never Used Second Hand Smoke Exposure: No Substance Use Type: Crack/Cocaine Advance Directives Date on File: 10/23/21 service: No Current occupational status: 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 Review of Systems Const Reports as per HPI and Denies weakness ENT Reports Normal hearing present and Denies dizziness Card Reports as per HPI, Denies chest pain, Denies chest pain at rest, Denies chest pain with activity, Denies dyspnea and Denies dyspnea on exertion Resp Reports as per HPI, Denies cough, Denies dyspnea and Denies dyspnea on exertion GI Reports as per HPI, Denies abdominal pain, Denies nausea and Denies vomiting Musc Denies numbness Skin/Breast Reports as per HPI, Denies erythema and Denies wounds Neuro Reports Normal hearing present, Denies dizziness, Denies numbness, Denies Sensory deficit (Neuro) and Denies weakness Psych Reports no additional complaints Endo Reports no additional complaints Physical Exam Const General: healthy appearing and no acute distress Orientation/consciousness: patient oriented x3 HEENT Head: Yes normal to inspection Ears: hearing grossly normal bilaterally Mouth: Normal oral and palatal mucosa present Neck Other: Right CEA incision: C/D/I. The incision at the distal end appears protruding. No erythema noted. Not painful to palpation. Resp Effort & Inspection: normal respiratory effort and able to speak in complete sentences Auscultation: clear to auscultation bilaterally Cardio Jugular venous distension: no JVD Rate: regular rate Rhythm: regular rhythm Heart sounds: S1 normal heart sound present and S2 normal heart sound present Bruits: no abdominal aortic bruits, no carotid bruits, no femoral bruits and no renal bruits Peripheral pulses: Peripheral pulses 2+ throughout GI Inspection: Yes normal to inspection Palpation (GI): No Abdominal aortic bruit present Skin General skin exam: no rashes or lesions noted Wounds: no wounds Hair: normal Neuro General: patient oriented x3 Cranial nerves: Yes Normal hearing present Cognition (Neuro): normal cognition Gait exam (Neuro): Normal gait present Motor exam (neuro): 5/5 motor strength present throughout Sensory Exam: No Sensory deficit (Neuro) Extrem General: Yes normal to inspection, Yes full ROM, Yes capillary refill normal and Yes normal gait Assessment & Plan Assessment & Plan (1) Carotid stenosis: Code(s): I65.29 - Occlusion and stenosis of unspecified carotid artery Category: Medical Qualifiers: Laterality: right Qualified Code(s): I65.21 - Occlusion and stenosis of right carotid artery Plan: Jose Miguel is presenting today as a 2 week follow up status post right CEA on 06/11/2024. He states he continues with headaches, but he has been having headaches for months now in his followed by neurology/his primary care. He states they have not been worsening but has been hoping they would be get better. He does have concerns about the incision site. I did discuss with him that the incision site looks good; I did discuss with him while he was inpatient that the distal part of the incision site would be bumpy due to the length of the incision and how we had to approach the endarterectomy. He states he does not remember that conversation, so I discussed it with him again. I did discuss that he could apply warm compresses and massage the skin to decrease some of the scar tissue. I did discuss with him that he was supposed to take it a little easier over the last 2 weeks and he might have increased lethargy and headaches due to getting to the gym every day and not relaxing as much as he should have. I did discuss with him that when he starts work he needs to be very careful and to take it easy. Did discuss with him that he should reach back out to his Neurology or his PCP to discuss the ongoing headaches. We will have him follow up with us in 3 months and we will do a repeat carotid ultrasound. If there are any questions or concerns, please do not hesitate to reach out to us. Please note a longitudinal relationship has been created with the patient and we have been following and surveillance this chronic condition. Orders: Orders US carotid duplex BI 3 Months I65.29 - Occlusion and stenosis of unspecified carotid artery Coding Level of Care Code Global (91714) Diagnoses Stenosis of right carotid artery I65.21 Laterality: right
--- OUTSIDE RECORDS SUMMARY | 2024-06-21 13:50 | XMS_ITS | Data Portability ---
Author Organization [place] [facility], Allergy Address [address] [place] [phone] Care Team Providers Care Mash Filter Cloth Changer Name Role Phone LUDY JOHNSON Primary Care [...] (PROC ) No observ ation record ed. [facility] (Medical Records) [address] [place], [address], 01/16/2024 12:21:38 Result Notes None recorded. Problems Name Problem SNOMED Code Status Onset Date Resolution Date Notes Provider Name and Address Organization Details Recorded Time Disorder of upper respirato ry system 756302688 Active 2015 Other specified diseases of upper respirator y tract; Note: Date Diagnosed: 05/23/2015 10:28 AM (J39.8) Not Available [facility] 02:39:14 Obstructi ve sleep apnea syndrome 83887470 Active 2023 DELMY SEGURA MD [address] [place] [address],[place] [address], [place], [phone] , [place] - [facility] 20:44:56 Tremor 56258322 Active 2023 DELMY SEGURA MD [address] [place] [address],[place] [address], [place], [phone] , [place] - [facility] 20:45:03 Chronic insomnia 004640159 Active 2023 DELMY SEGURA MD [address] [place] [address],[place] [address], [place], [phone] , [place] - [facility] 12:08:03 Problem Notes None recorded. Procedures Surgical History Date Name Laterality Status Provider Name and Address Organization Details Recorded Time 01/16/2024 FOL_DP completed DELMY SEGURA MD [address] [place] [address],[place] [address], [place], [phone], [facility] - [facility] 01/13/2024 20:44:48 Imaging Results Imaging Date Name Status LastModified by Organiz ation Details LastModified Time 01/16/2024 sleep study, diagnostic (PROC) completed [facility] (Medical Records) [address] [place], [address], 01/16/2024 12:21:38 Procedure Notes None recorded. Medical [...] mg tablet 2015 active Medicatio n ID: [id number] Du ration Value: 30 Brand Name: quetiapin [...] mg tablet 2015 active Medicatio n ID: [id number] Du ration Value: 30 Brand Name: sertralin [...] 600 mg tablet active Medicatio n ID: [id number] Br and Name: kosta il Send Method: [...] mg tablet 2015 active Medicatio n ID: [id number] Du ration Value: 30 Brand Name: clonazepa [...] layed release 2014 active Medicatio n ID: [id number] Du ration Value: 90 Brand Name: omeprazol [...] Updated DateTime 01/16/2024 170.18 cm 31.3 kg/m2 59048.47 g Kelsey Ba [place] - [facility] 01/16/2024 11:48:17 Social History None recorded. Functional Status None recorded. Mental Status None recorded. Family History Nothing Reported. Medical History No medical history recorded. Past Encounters Encounter ID Performer Location Encounter Start Date Encounter Closed Date Diagnosis/Indication Diagnosis SNOMED-CT Code Diagnosis ICD10 Code Diagnosis Note DELMY SEGURA MD [facility] [address] [phone] 01/16/2024 11:22:17 01/16/2024 13:49:06 Obstructive sleep apnea syndrome 39083563 G47.33 Home PSG Bob White Tremor 72885783 R25.1 Chronic insomnia 2322191 04 F51.04 I am concerned the patient may ultimately not be a good candidate for the inspire implantati on secondary to his chronic insomnia. Encouraged him to continue working with sleep center to get this under control Body mass index 30+ - obesity 422790062 Z68.31 Health Concerns Section Related Observation LastModified by Organization Detai ls LastModified Time None Recorded Concern Status LastModified by Organization Details LastModified Time None Recorded Advance Directives Directive None Recorded Payers Encounter Date Sequence Insurance Name Policy Number Policy Brewer Covered Member ID Brewer Member ID Guarantor Name 01/16/2024 1 [facility] NET PLAN (MEDICAID HMO) JORGE Juan [id number] Jose Miguel Juan Notes Date Note Type [...] was June 28, 2022 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
--- OUTSIDE RECORDS SUMMARY | 2024-06-21 13:50 | XMS_ITS | Encounter Summary ---
Author Organization [facility] Address [address] [place] [address] Care Team Providers Care Senior Medical Writer Name Role Phone Fritz Shelley MD Primary Care Provider +1- [phone] Reason for Visit * Reason Comments Other Encounter Details Date Type Department Care Team ([facility] st Contact Info) Description 09/22/2020 Telephone [facility] Urologic Surgery [address] [phone] Nicholas Fernandez MD [address] [place] [id number] Other Social History Tobacco Use Types Packs/Day [...] on filedocumented in this encounter Care Teams Senior Medical Writer Relationship Specialty Start Date End Date Fritz Shelley MD [address] [place] [address] Dr Tran [address] [place] [id number] PCP - General Internal Medicine 12/11/19 documented as of this encounter
--- OUTSIDE RECORDS SUMMARY | 2024-06-21 13:50 | XMS_ITS | Clinical Summary ---
Author Organization [facility] Address [address] [place] [address] Care Team Providers Care Wad Lubricator Name Role Phone Fritz Shelley MD Primary Care Provider +1- [phone] Allergies No known active allergies Medications Medication [...] age to complete this topic Care Teams Wad Lubricator Relationship Specialty Start Date End Date Fritz Shelley MD [address] [place] [address] [place] [address] PCP - General Internal Medicine 12/11/19
--- OUTSIDE RECORDS SUMMARY | 2024-06-21 13:50 | XMS_ITS | Encounter Summary ---
Author Organization [facility] Address [address] [place] [address] Care Team Providers Care Photo Checker And Assembler Name Role Phone Fritz Shelley MD Primary Care Provider +1- [phone] Reason for Visit * Reason Comments Appointment Encounter Details Date Type Department Care Team ([facility] st Contact Info) Description 10/22/2020 Telephone [facility] [address] [place] [phone] Nicholas Fernandez MD [address] [address] Appointment Social History Tobacco Use Types Packs/Day [...] on filedocumented in this encounter Care Teams Photo Checker And Assembler Relationship Specialty Start Date End Date Fritz Shelley MD [address] [place] [address] Dr Tran [address] [place] [id number] PCP - General Internal Medicine 12/11/19 documented as of this encounter
--- OUTSIDE RECORDS SUMMARY | 2024-06-21 13:50 | XMS_ITS | Encounter Summary ---
Author Organization [facility] Address [address] [place] [address] Care Team Providers Care Chainman Name Role Phone Fritz Shelley MD Primary Care Provider +1- [phone] Reason for Visit * Reason Comments Prior Authorization [employer]iaflex Encounter Details Date Type Department Care Team (Late st Contact Info) Description 02/19/2020 Telephone [facility] Urologic Surgery [place] [address] [facility] [address] [place] [phone] Deborah Figueroa MD [address] [facility] [address] [place] [address] Prior Authorization (xiaflex) Social History Tobacco Use [...] on filedocumented in this encounter Care Teams Chainman Relationship Specialty Start Date End Date Fritz Shelley MD [address] [place] [address] [place] [address] PCP - General Internal Medicine 12/11/19 documented as of this encounter
== END 2024-06-21 11:13 | disposition home or self-care (01) ==
LOC: HO.HVS 10:51
PROVIDERS: Visit Provider Physician Assistant Surgical
DX: I65.21 Occlusion and stenosis of right carotid artery (principal)
CPT/HCPCS: 99024

== ENCOUNTER → 2024-06-21 10:50 | Outpatient (BNVA) | payer OTHER, SELFPAY | PROVIDERS: Visit Provider Physician Assistant Surgical | DX: I65.21 Occlusion and stenosis of right carotid artery (principal); R51.9 Headache, unspecified; R53.83 Other fatigue; R06.02 Shortness of breath; Z48.812 Encounter for surgical aftercare following surgery on the circulatory system; Z87.891 Personal history of nicotine dependence; Z98.890 Other specified postprocedural states | CPT/HCPCS: 99212 ==

== ENCOUNTER 2024-06-28 08:44 | Day surgery (SDC) | payer OTHER, SELFPAY ==
[2024-06-26 11:40] VITALS: BMI 31.9
--- NOTE | 2024-06-27 09:37 | HO.ANESPROP2 ---
Documented by User: Esperanza Guan NP 06/27/24 09:39 HPI - Anesthesia Eval Consult details Narrative: 58yo M for Upper Endoscopy and Colonoscopy s/p Cartoid endarterectomy 06/11/24 - no issues at vascular f/u visit 06/21/24 with patient reporting going to the gym daily. ETOH abuse PMFSH Active Problems Active Problems: All Active Problems Preoperative cardiovascular examination (Acute) Carotid stenosis, right (Acute) Carotid stenosis (Acute) Dyslipidemia (Acute) Fatigue (Acute) Restless leg (Acute) Decreased hearing (Acute) Tinnitus (Acute) Hematemesis (Acute) Occult blood positive stool (Acute) Bipolar disorder, current episode depressed, severe, without psychotic features (Acute) Disorder of eustachian tube (Acute) Tinnitus of left ear (Acute) Coarse tremors (Acute) Alcoholism in remission (Acute) Abdominal pain (Acute) Right hip pain (Acute) Chest pain (Acute) Acute alcoholic gastritis (Acute) MDD (major depressive disorder), recurrent severe, without psychosis (Acute) Screening PSA (prostate specific antigen) (Acute) Physical exam (Acute) Pancytopenia (Acute) Acute alcoholic hepatitis (Acute) Abscess (Acute) Other cyst of bone, left hand (Acute) Other bursal cyst, left ankle and foot (Acute) Obstructive sleep apnea (Acute) Essential and other specified forms of tremor (Acute) Hypersomnolence (Acute) Snoring (Acute) Alcohol use disorder, severe, dependence (Acute) Diabetes mellitus (Acute) Recurrent moderate major depressive disorder with anxiety (Acute) Obesity (BMI 30-39.9) (Acute) GERD without esophagitis (Acute) Mixed hyperlipidemia (Acute) Past Medical History Medical History History of varicose veins Fatty liver Obstructive sleep apnea Essential and other specified forms of tremor Hypersomnolence Snoring Diabetes mellitus Alcoholic ketoacidosis Anxiety with depression Alcohol use disorder, severe, dependence Recurrent moderate major depressive disorder with anxiety Insomnia Alcohol withdrawal History of alcoholic hepatitis HTN (hypertension) Acute hepatitis Alcohol abuse with withdrawal Obesity (BMI 30-39.9) GERD without esophagitis Mixed hyperlipidemia Benign essential hypertension Family History Family History Father Advanced cirrhosis of liver Alcoholic cirrhosis Substance use disorder Mother Dementia Maternal Grandfather Substance use disorder Sister Substance use disorder Maternal Grandfather Colon cancer Prostate cancer Family history of problems with anesthesia: No Surgical History Surgical History History of right-sided carotid endarterectomy History of esophagogastroduodenoscopy (EGD) H/O colonoscopy History of Problems with Anesthesia: No Social History Social History Household Members: Significant Other Household Members Other:: Cousin Housing: House Are you a primary home health care social worker to a significant other at home: No Do you presently have visiting nurse or other home services: No Unable to assess alcohol history related to: Unknown Alcohol intake: current Alcohol intake frequency: former alcohol drinker Alcohol type: beer, wine and hard liquor Patient Tobacco Use Status: Former Tobacco user Tobacco use type: Cigarette Years Smoked: quit 10 years ago e-Cigarette/Vaping Use: Never Used Second Hand Smoke Exposure: No Substance Use Type: Crack/Cocaine Substance Use Frequency: Occasionally Have you been hit, kicked, punched, or otherwise hurt by someone within the past year? 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 Meds Allergies Allergy/AdvReac Type Severity Reaction Status Date / Time No Known Allergies Allergy Verified 06/28/24 09:16 [No Known Allergies*] Home Medications ?Medication ?Instructions ?Recorded ?Confirmed ?Last Taken ?Type quetiapine 100 mg tablet 200 - 300 mg PO BEDTIME PRN anxiety 03/08/23 06/26/24 11/13/23 History multivitamin 1 tab PO DAILY 02/28/24 06/26/24 06/11/24 History melatonin 3 mg tablet 3 - 9 mg PO BEDTIME PRN Sleep 04/20/24 06/26/24 Unknown History Nugenix 3 tab PO DAILY 06/11/24 06/26/24 06/11/24 History bupropion HCl 200 mg tablet,12 hr 200 mg PO DAILY 06/11/24 06/26/24 06/11/24 History sustained-release labetalol 300 mg tablet 300 mg PO BID 06/11/24 06/26/24 06/11/24 History Exam Height,Weight and Vital Signs: Height 5 ft 7 in Weight 92.533 kg Pertinent Lab Results Pertinent Lab Results: Laboratory Tests 06/12/24 04:07 WBC 6.5 Hgb 8.9 L Hct 26.0 L Plt Count 232 Sodium 142 Potassium 3.6 Chloride 106 Carbon Dioxide 25 BUN 18 H Creatinine 1.19 Narrative Narrative: EKG 02/2024 EKG Details: EKG shows normal sinus rhythm with normal EKG ECHO 2023 Conclusions: - Normal left ventricular size and systolic function. There is mildly increased left ventricular wall thickness. The visually estimated ejection fraction is between 55-60%. There is no evidence of regional wall motion abnormalities. Diastolic function is normal for age. - Normal right ventricular cavity size and systolic function. - There is mild dilatation of the ascending aorta measuring 3.50 cm. NM cardiolite stress test 04/2024 IMPRESSION: 1. Myocardial perfusion imaging study shows probably normal myocardial perfusion. 2. Gated LVEF is 63% during stress and 57% during rest. 3. Transient ischemic dilatation not present. EKG component of the test reported separately. Assessment and Plan Assessment Anesthesia Assessment: Chart Reviewed Final Anesthetic Review Family History of Problems with Anesthesia: No History of Problems with Anesthesia: No Documented by User: Marbella Beauchamp MD 06/28/24 10:28 [facility] Past Medical History Medical History History of varicose veins Fatty liver Obstructive sleep apnea Essential and other specified forms of tremor Hypersomnolence Snoring Diabetes mellitus Alcoholic ketoacidosis Anxiety with depression Alcohol use disorder, severe, dependence Recurrent moderate major depressive disorder with anxiety Insomnia Alcohol withdrawal History of alcoholic hepatitis HTN (hypertension) Acute hepatitis Alcohol abuse with withdrawal Obesity (BMI 30-39.9) GERD without esophagitis Mixed hyperlipidemia Benign essential hypertension Family History Family History Father Advanced cirrhosis of liver Alcoholic cirrhosis Substance use disorder Mother Dementia Maternal Grandfather Substance use disorder Sister Substance use disorder Maternal Grandfather Colon cancer Prostate cancer Surgical History Surgical History History of right-sided carotid endarterectomy History of esophagogastroduodenoscopy (EGD) H/O colonoscopy Social History Social History Household Members: Significant Other Household Members Other:: Cousin Housing: House Are you a primary home health care social worker to a significant other at home: No Do you presently have visiting nurse or other home services: No Unable to assess alcohol history related to: Unknown Alcohol intake: current Alcohol intake frequency: former alcohol drinker Alcohol type: beer, wine and hard liquor Patient Tobacco Use Status: Former Tobacco user Tobacco use type: Cigarette Years Smoked: quit 10 years ago e-Cigarette/Vaping Use: Never Used Second Hand Smoke Exposure: No Substance Use Type: Crack/Cocaine Substance Use Frequency: Occasionally Have you been hit, kicked, punched, or otherwise hurt by someone within the past year? 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 Meds Allergies Allergy/AdvReac Type Severity Reaction Status Date / Time No Known Allergies Allergy Verified 06/28/24 09:16 [No Known Allergies*] Home Medications ?Medication ?Instructions ?Recorded ?Confirmed ?Last Taken ?Type quetiapine 100 mg tablet 200 - 300 mg PO BEDTIME PRN anxiety 03/08/23 06/26/24 11/13/23 History multivitamin 1 tab PO DAILY 02/28/24 06/26/24 06/11/24 History melatonin 3 mg tablet 3 - 9 mg PO BEDTIME PRN Sleep 04/20/24 06/26/24 Unknown History Nugenix 3 tab PO DAILY 06/11/24 06/26/24 06/11/24 History bupropion HCl 200 mg tablet,12 hr 200 mg PO DAILY 06/11/24 06/26/24 06/11/24 History sustained-release labetalol 300 mg tablet 300 mg PO BID 06/11/24 06/26/24 06/11/24 History Exam Airway Mallampati Class: III TM Dist: >3cm Neck ROM: Full Loose/Missing/Broken Teeth: No Heart: RRR Lungs: CTA Assessment and Plan Assessment Anesthesia Assessment: Anesthesia Plan Discussed Final Anesthetic Review NPO: Yes ASA Class: III Final Preanesthetic Review: Meds/Allgs Chart Reviewed, Consent Obtained/Reviewed and Anes Risks/Benef Reviewed Patient Risk: Intermediate Procedure Risk: Intermediate Anesthetic Plan Anesthetic Plan: MAC: Disposition: Standard PACU
[2024-06-28 09:15] VITALS: BMI 28.6
[2024-06-28] MEDS: Lactated Ringers 1,000 ML 100 ML IVCONT (09:21)
[2024-06-28 09:24] VITALS: BP 145/85; PULSE 67; RESP 18; TEMP 36.7; O2SAT 97
[2024-06-28 09:34] LABS: Glucose, Whole Blood 108 mg/dL (60-115)
--- NOTE | 2024-06-28 09:38 | MHC.SHP ---
Pre-Procedural Eval Section A - 24 Hr Update-Section A only Date of Service: 06/28/24 Section B - Complete if H&P > 30 days Chief Complaint: anemia Details of Present Illness: Fatty liver Obstructive sleep apnea Essential and other specified forms of tremor Hypersomnolence Snoring Diabetes mellitus Alcoholic ketoacidosis Anxiety with depression Alcohol use disorder, severe, dependence Recurrent moderate major depressive disorder with anxiety Insomnia Alcohol withdrawal History of alcoholic hepatitis HTN (hypertension) Acute hepatitis Alcohol abuse with withdrawal Obesity (BMI 30-39.9) GERD without esophagitis Mixed hyperlipidemia Benign essential hypertension Surgical History History of esophagogastroduodenoscopy (EGD) H/O colonoscopy Present Medications: see Short Stay Collaborative assessment Allergies: Allergies Allergy/AdvReac Type Severity Reaction Status Date / Time No Known Allergies Allergy Verified 06/28/24 09:16 [No Known Allergies*] Review of Systems Review of Systems Comment: Ten point ROS negative Exam Exam Comment: Gen appear: No acute distress HEENT: no icterus Chest: No overt resp distress Abd: soft, nontender, nondistended Psych: Stable affect, answering questions appropriately Neuro: A/Ox3 noted to move all extremities spontaneously Ext: no peripheral edema Plan Diagnosis/Plan: Unchanged I have reviewed the history and physical and performed a pertinent physical examination on my patient. No changes have occurred unless specified. Time Spent With Patient Time: Total time managing care of this patient today ____ minutes.
--- NOTE | 2024-06-28 11:09 | P.OPN-COLO_ITS ---
Colonoscopy Operative Note Operative Note Date of Service: 06/28/24 Narrative: Procedure: Upper endoscopy and colonoscopy Indication: Anemia Endoscopist: Yudi Trinh MD Anesthesia Provider: Dr Shannon Beauchamp Anesthesia type: MAC Instrument: [id number] and [id number] EGD Procedure:?? The procedure, indications, preparation and potential complications were reviewed with the patient, who indicated understanding and gave written informed consent to proceed. The endoscope was introduced through the mouth, and advanced to the 2nd part of the duodenum. The mucosa was carefully examined on slow withdrawal of the endoscope. The patient tolerated the procedure well. There were no immediate complications.? EGD Findings:? * Esophagus:? Normal esophageal mucosa was noted. The GE junction was at 30 cm with SCM extending to 34 cm. C4M6. Cold forceps biopsies were taken q1 cm for BE surveillance. Tissue Cypher will also be sent out. There was a subepithelial nodule at 36 cm measuring 15 mm. Bite on bite cold forceps biopsies were taken for histology. * Stomach:? Normal gastric mucosa. Retroflexion was performed in the cardia. Random cold forceps biopsies were taken from the stomach. * Duodenum:? Normal duodenal mucosa. Cold forceps biopsies were taken from the duodenal bulb and 2nd portion of the duodenum to rule out celiac sprue. Colonoscopy Procedure:? The patient was then turned for the colonoscopy. A digital rectal exam was per formed which was normal.? A distal attachment cap was affixed to the tip of the scope and the colonoscope was then inserted through the anus and advanced through the colon and advanced to the cecum at 75 cm and terminal ileum.? Appendiceal orifice and ileocecal valve were identified. Mucosa was carefully examined under high definition white light as the instrument was slowly withdrawn in a retrograde panoramic fashion. Retroflexion was performed in rectum. The procedure was not difficult. The quality of the prep was BBPS: 2+2+3 = adequate Withdrawal time 7 minutes Limitations: No limitations Findings: Mucosa: Normal colon and terminal ileum mucosa. Protruding lesions: * Small internal hemorrhoids without stigmata of recent bleeding. Impression: 1. Valles's esophagus (biopsy, tissue cypher) 2. Esophageal nodule (biopsy) 3. Normal stomach (biopsy) 4. Normal duodenum (biopsy) 5. Normal colon and terminal ileum mucosa 6. Internal and external hemorrhoids Recommendations:?? * No obvioius source of bleeding/anemia noted on bidirectional scope today * Normocytic anemia noted on labs. Iron, B12 and folate ordered. * If this is non-iron deficiency anemia, consider hematology evaluation * Follow-up path results * Avoid NSAIDs * Repeat colonoscopy for asymptomatic CRC screening in 10 years.
[2024-06-28 11:13] VITALS: BP 112/48; PULSE 57; RESP 18; TEMP 36.2; O2SAT 100
[2024-06-28 11:28] VITALS: BP 129/63; PULSE 65; RESP 18; O2SAT 100
[2024-06-28 11:51] VITALS: BP 132/60; PULSE 61; RESP 18; TEMP 36.2; O2SAT 98
[2024-06-28 12:39] LABS: Iron 92 mcg/dL (45-160); Percent Iron Saturation 30 % (15-50); Total Iron Binding Capacity 306 mcg/dL (228-428); Unsaturated Iron Binding 214 ug/dL
[2024-06-28 13:16] LABS: Ferritin 66 ng/mL (20-250)
[2024-06-28 13:33] LABS: Folate 15.7 ng/mL (> or = 4.0); Vitamin B12 310 pg/mL (200-900)
== END 2024-06-28 12:19 | disposition home or self-care (01) ==
PROVIDERS: PCP Nurse Practitioner Family; Visit Provider Internal Medicine
PROC: (CPT 45378; principal; 2024-06-28 11:10)
DX: D64.9 Anemia, unspecified (principal); K64.8 Other hemorrhoids; K64.4 Residual hemorrhoidal skin tags; R10.13 Epigastric pain; K21.9 Gastro-esophageal reflux disease without esophagitis; K29.80 Duodenitis without bleeding; K22.70 Barrett's esophagus without dysplasia; K76.0 Fatty (change of) liver, not elsewhere classified; F10.20 Alcohol dependence, uncomplicated; E87.29 Other acidosis; B17.9 Acute viral hepatitis, unspecified; I10 Essential (primary) hypertension; E78.2 Mixed hyperlipidemia; E55.9 Vitamin D deficiency, unspecified; E11.9 Type 2 diabetes mellitus without complications; G25.0 Essential tremor; G47.33 Obstructive sleep apnea (adult) (pediatric); G47.10 Hypersomnia, unspecified; F41.8 Other specified anxiety disorders; Z79.899 Other long term (current) drug therapy; F14.90 Cocaine use, unspecified, uncomplicated; Z87.891 Personal history of nicotine dependence; Z56.0 Unemployment, unspecified
CPT/HCPCS: 45378; 43239; 36415; 82607; 82728; 82746; 82947; 83540; 88305; 88313; 88341; 88342; J2250

== ENCOUNTER → 2024-06-28 08:44 | Outpatient (BNV) | payer OTHER, SELFPAY | PROVIDERS: PCP Nurse Practitioner Family; Visit Provider Internal Medicine | DX: D64.9 Anemia, unspecified (principal); K64.8 Other hemorrhoids; K22.70 Barrett's esophagus without dysplasia; K22.81 Esophageal polyp | CPT/HCPCS: 43239; 45378 ==

== ENCOUNTER 2024-07-17 09:48 | Outpatient (AMB) | payer OTHER, SELFPAY ==
--- NOTE | 2024-07-17 09:58 | MHC.OFFVIS ---
Vital Signs 07/17/24 10:06 Height 5 ft 7 in Weight 195 lb 12.328 oz BMI 30.7 BP 124/72 Blood Pressure Location Rt brachial Position Sitting Pulse 70 Pulse Source Pulse Oximeter Pulse Oximetry (%) 97 Oxygen Delivery Method Room Air Intake Visit Reasons: egd/colo Ziggy Intake Note: ESTABLISHED PATIENT for s/p egd w/ Dr. Trinh. Pt has imaging appt scheduled. Chief Complaint; Pt denies any GI concerns at this time and states sx are well controlled. Religious Ritual Slaughterer Required: No Accompanied by: Self / Same As Patient Allergies No Known Allergies [No Known Allergies*] Allergy (Verified 07/17/24 09:58) HPI HPI egd/colo Ziggy: Details: LAST VISIT GERD (gastroesophageal reflux disease) Anemia Postprandial epigastric pain Plan Will have patient repeat CBC. Patient reports epigastric pain occasionally, will send him for upper GI with barium swallow. Will check transglutaminase, vitamin B12, folate and vitamin-D level. Patient can start sucralfate at bedtime. He will return in 2-3 months to discuss going for colonoscopy and upper endoscopy. Long discussion with patient avoiding dietary triggers and late night snacking. Staying upright for minimum 3 hours after meals discussed with patient. Continue pantoprazole in the morning as patient reports that it is helping. If any worsening symptoms patient is to call the office. Message sent to surgical schedulers to book upper endoscopy and colonoscopy for patient. Patient is agreeable to current plan of care and verbalizes understanding of instructions. He was given the opportunity to ask questions and all questions answered. ? Thank you for allowing me to participate in his care Orders Orders Complete Blood Count no Diff 04/20/24 K21.9 FL upper GI w Ba Swallow 04/20/24 K21.9 Vitamin D 25-OH (D2 and D3) 04/20/24 E55.9 Vitamin B12 and Folate 04/20/24 R19.7 Transglutaminase IgA 04/20/24 R10.9 Medications New sucralfate 10 mL PO BEDTIME 400 mL 3RF K21.9 UPPER ENDOSCOPY AND COLONOSCOPY EGD Findings:? Esophagus:? Normal esophageal mucosa was noted. The GE junction was at 30 cm with SCM extending to 34 cm. C4M6. Cold forceps biopsies were taken q1 cm for BE surveillance. Tissue Cypher will also be sent out. There was a subepithelial nodule at 36 cm measuring 15 mm. Bite on bite cold forceps biopsies were taken for histology. Stomach:? Normal gastric mucosa. Retroflexion was performed in the cardia. Random cold forceps biopsies were taken from the stomach. Duodenum:? Normal duodenal mucosa. Cold forceps biopsies were taken from the duodenal bulb and 2nd portion of the duodenum to rule out celiac sprue. Colonoscopy Procedure:? The patient was then turned for the colonoscopy. A digital rectal exam was performed which was normal.? A distal attachment cap was affixed to the tip of the scope and the colonoscope was then inserted through the anus and advanced through the colon and advanced to the cecum at 75 cm and terminal ileum.? Appendiceal orifice and ileocecal valve were identified. Mucosa was carefully examined under high definition white light as the instrument was slowly withdrawn in a retrograde panoramic fashion. Retroflexion was performed in rectum. The procedure was not difficult. The quality of the prep was BBPS: 2+2+3 = adequate Withdrawal time 7 minutes Limitations: No limitations Findings: Mucosa: Normal colon and terminal ileum mucosa. Protruding lesions: Small internal hemorrhoids without stigmata of recent bleeding. Impression: 1. Valles's esophagus (biopsy, tissue cypher) 2. Esophageal nodule (biopsy) 3. Normal stomach (biopsy) 4. Normal duodenum (biopsy) 5. Normal colon and terminal ileum mucosa 6. Internal and external hemorrhoids Recommendations:?? No obvioius source of bleeding/anemia noted on bidirectional scope today Normocytic anemia noted on labs. Iron, B12 and folate ordered. If this is non-iron deficiency anemia, consider hematology evaluation Follow-up path results Avoid NSAIDs Repeat colonoscopy for asymptomatic CRC screening in 10 years. PATHOLOGY RESULTS Diagnosis A. Duodenum, biopsy: Chronic inactive duodenitis. B. Stomach, random, biopsy: Antral-type and oxyntic mucosa within normal limits; no Helicobacter organisms seen. C. Esophagus, 39 cm, biopsy: - Cardiac type mucosa with mild chronic inactive inflammation and intestinal metaplasia; negative for dysplasia. - No squamous epithelium identified. D. Esophagus, 38 cm, biopsy: - Cardiac type mucosa with moderate chronic inactive inflammation and intestinal metaplasia; negative for dysplasia. - No squamous epithelium identified. E. Esophagus, 37 cm, biopsy: - Cardiac type mucosa with moderate chronic inactive inflammation and intestinal metaplasia; negative for dysplasia. - No squamous epithelium identified. F. Esophagus, 36 cm biopsy: - Cardiac type mucosa with mild chronic inactive inflammation and intestinal metaplasia; negative for dysplasia. - No squamous epithelium identified. G. Esophagus, 35 cm, biopsy: - Valles esophagus with background moderate chronic inactive inflammation. - No dysplasia seen. - Squamous epithelium within normal limits. H. Esophagus, 34 cm, biopsy: - Valles esophagus with background mild chronic inactive inflammation. - No dysplasia seen. - No squamous epithelium identified. I. Esophagus, nodule at 36 cm: - Granular cell tumor; negative for malignancy. - Background cardiac type mucosa with mild chronic inactive inflammation and intestinal metaplasia; negative for dysplasia. TODAY'S VISIT Patient is here today for follow-up and to discuss upper endoscopy and colonoscopy results. Patient denies any ill effects from the prep, anesthesia or procedure itself. Patient reports to be feeling fairly well. Denies any nausea or vomiting. Still taking pantoprazole and feels like symptoms are suppressed. Patient denies melena, hematochezia, unintentional weight loss or ribbon like stools. June 11 patient underwent right endarterectomy for carotid stenosis. Upon reviewing his lab work noticed that patient was anemic the day off and they after procedure. Patient had normal iron study as well as vitamin B12 and folate Laboratory Tests 02/27/24 04/16/24 06/11/24 11:25 08:37 08:51 RBC 5.24 4.09 L D 3.40 L Hgb 15.5 12.4 L 10.2 L Hct 43.9 34.6 L D 30.1 L MCV 84.6 Plt Count 290 D 126 L D Iron TIBC % Saturation Unsat Iron Binding Ferritin AST 110 H 47 H ALT 196 H 47 H Alkaline Phosphatase 82 47 Vitamin B12 Folate 06/12/24 06/28/24 04:07 11:59 RBC 2.95 L Hgb 8.9 L Hct 26.0 L MCV Plt Count Iron 92 TIBC 306 % Saturation 30 Unsat Iron Binding 214 Ferritin 66 AST ALT Alkaline Phosphatase Vitamin B12 310 Folate 15.7 PFSH Medical History (Updated 07/17/24 @ 10:34 by Silvia Turcios, [facility]) 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 esophagus History of varicose veins Fatty liver Obstructive sleep apnea Essential and other specified forms of tremor Hypersomnolence Snoring Diabetes mellitus Alcoholic ketoacidosis Anxiety with depression Alcohol use disorder, severe, dependence Recurrent moderate major depressive disorder with anxiety Insomnia Alcohol withdrawal History of alcoholic hepatitis HTN (hypertension) Acute hepatitis Alcohol abuse with withdrawal Obesity (BMI 30-39.9) GERD without esophagitis Mixed hyperlipidemia Benign essential hypertension Surgical History History of right-sided carotid endarterectomy History of esophagogastroduodenoscopy (EGD) H/O colonoscopy Family History Father Advanced cirrhosis of liver Alcoholic cirrhosis Substance use disorder Mother Dementia Maternal Grandfather Substance use disorder Sister Substance use disorder Maternal Grandfather Colon cancer Prostate cancer Social History Household Members: Significant Other Household Members Other:: Cousin Housing: House Are you a primary child day care center worker to a significant other at home: No Do you presently have visiting nurse or other home services: No Unable to assess alcohol history related to: Unknown Alcohol intake: current Alcohol intake frequency: former alcohol drinker Alcohol type: beer, wine and hard liquor Patient Tobacco Use Status: Former Tobacco user Tobacco use type: Cigarette Years Smoked: quit 10 years ago e-Cigarette/Vaping Use: Never Used Second Hand Smoke Exposure: No Substance Use Type: Crack/Cocaine Advance Directives Date on File: 10/23/21 service: No Current occupational status: 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 Review of Systems Const Denies weight gain and Denies weight loss ENT Reports no additional complaints, Denies dysphagia and Denies odynophagia Card Reports no additional complaints Resp Reports no additional complaints GI Denies abdominal pain, Denies belching, Denies melena, Denies bloating, Denies change in bowel habits, Denies dysphagia, Denies excessive flatus, Denies dyspepsia, Denies heartburn, Denies diarrhea, Denies loose stools, Denies nausea, Denies odynophagia and Denies vomiting Reports no additional complaints Musc Reports no additional complaints Neuro Reports no additional complaints Psych Reports no additional complaints Endo Reports no additional complaints Physical Exam Vital Signs: Last Vital Signs Pulse 70 07/17/24 10:06 BP 124/72 07/17/24 10:06 Pulse Ox 97 07/17/24 10:06 Oxygen Delivery Method Room Air 07/17/24 10:06 BMI result Body Mass Index 30.7 Const General: healthy appearing, no acute distress and well developed Nutritional Appearance: well nourished Orientation/consciousness: patient oriented x3 Resp Effort & Inspection: normal respiratory effort, able to speak in complete sentences, no tracheal deviation and symmetric chest movement Auscultation: clear to auscultation bilaterally Cardio Rate: regular rate GI Inspection: Yes normal to inspection and No distended Palpation (GI): Soft to palpation, not firm, nontender and No hepatosplenomegaly present Auscultation: normal bowel sounds General: Yes no CVA tenderness Back/Spine/Pelvis Back: no CVA tenderness Skin General skin exam: elasticity normal, turgor normal and dry skin Neuro General: patient oriented x3 Psych Appearance: grossly normal Mental Status: mental status grossly normal Assessment & Plan Assessment & Plan (1) 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: Code(s): K22.70 - Valles's esophagus without dysplasia Category: Medical (2) GERD (gastroesophageal reflux disease): Code(s): K21.9 - Gastro-esophageal reflux disease without esophagitis Qualifiers: Esophagitis presence: without esophagitis Qualified Code(s): K21.9 - Gastro-esophageal reflux disease without esophagitis (3) Anemia: Code(s): D64.9 - Anemia, unspecified Qualifiers: Anemia type: unspecified type Qualified Code(s): D64.9 - Anemia, unspecified (4) Postprandial epigastric pain: Code(s): R10.13 - Epigastric pain Plan Referral to Hematology as patient had normal iron study and anemic. Will repeat CBC again. Anemia could be status post endarterectomy due to blood loss. Continue pantoprazole daily. Avoid dietary triggers and late night snacking. Staying upright for minimum 3 hours after meals discussed with patient. Patient had normal colonoscopy and will repeat call us again in 10 years, sooner if clinically necessary. I will see patient in 3 months, sooner on as needed basis. He is agreeable to this plan and verbalizes understanding of instructions. He was given the opportunity to ask questions and all questions answered. Thank you for allowing me to participate in his care Orders: Orders Complete Blood Count no Diff Today K21.9 - Gastro-esophageal reflux disease without esophagitis Referrals Hematology & Oncology Referral D64.9 - Anemia, unspecified Coding Level of Care Code Est Pt Level 4 (03845) Complex EM visit Add On G2211 Diagnoses 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 K22.70 Gastroesophageal reflux disease without esophagitis K21.9 Esophagitis presence: without esophagitis Anemia, unspecified type D64.9 Anemia type: unspecified type Postprandial epigastric pain R10.13 Time Spent (min) 35 Comment 20 minutes spent with patient and additional 15 minutes spent reviewing his records
[2024-07-17 10:06] VITALS: BP 124/72; PULSE 70; O2SAT 97; BMI 30.7
--- OUTSIDE RECORDS SUMMARY | 2024-07-17 11:17 | XMS_ITS | Encounter Summary ---
Author Organization [facility] Address [address] [place] [address] Care Team Providers Care Front Desk Associate Name Role Phone Fritz Shelley MD Primary Care Provider +1- [phone] Reason for Visit * Reason Comments Appointment Encounter Details Date Type Department Care Team ([facility] st Contact Info) Description 10/22/[address] [facility] [address] [place] [phone] Nicholas Fernandez MD [address] [address] Appointment Social History Tobacco Use Types Packs/Day [...] on filedocumented in this encounter Care Teams Front Desk Associate Relationship Specialty Start Date End Date Fritz Shelley MD [address] [place] [address] Dr Tran [address] [place] [id number] PCP - General Internal Medicine 12/11/19 documented as of this encounter
--- OUTSIDE RECORDS SUMMARY | 2024-07-17 11:17 | XMS_ITS | Encounter Summary ---
Author Organization [facility] Address [address] [place] [address] Care Team Providers Care Security Assurance Analyst Name Role Phone Fritz Shelley MD Primary Care Provider +1- [phone] Reason for Visit * Reason Comments Other Encounter Details Date Type Department Care Team ([facility] st Contact Info) Description 09/22/2020 Telephone [facility] Urologic Surgery [address] [phone] Nicholas Fernandez MD [address] [place] [id number] Other Social History Tobacco Use Types Packs/Day [...] on filedocumented in this encounter Care Teams Security Assurance Analyst Relationship Specialty Start Date End Date Fritz Shelley MD [address] [place] [address] Dr Tran [address] [place] [address] PCP - General Internal Medicine 12/11/19 documented as of this encounter
--- OUTSIDE RECORDS SUMMARY | 2024-07-17 11:17 | XMS_ITS | Clinical Summary ---
Author Organization [facility] Address [address] [place] [address] Care Team Providers Care Kinder Teacher Name Role Phone Fritz Shelley MD Primary Care Provider +1- [phone] Allergies No known active allergies Medications Medication [...] age to complete this topic Care Teams Kinder Teacher Relationship Specialty Start Date End Date Fritz Shelley MD [address] [place] [address] [place] [address] PCP - General Internal Medicine 12/11/19
--- OUTSIDE RECORDS SUMMARY | 2024-07-17 11:17 | XMS_ITS | Encounter Summary ---
Author Organization [facility] Address [address] [place] [address] Care Team Providers Care Tuckpointer Name Role Phone Fritz Shelley MD Primary Care Provider +1- [phone] Reason for Visit * Reason Comments Prior Authorization xiaflex Encounter Details Date Type Department Care Team (Late st Contact Info) Description 02/19/2020 Telephone [facility] Urologic Surgery [place] [address] [facility] [address] [phone] Deborah Figueroa MD [address] [facility] [address] [place] [address] Prior Authorization (xiaflex) Social History Tobacco Use [...] on filedocumented in this encounter Care Teams Tuckpointer Relationship Specialty Start Date End Date Fritz Shelley MD [address] [place] [address] [place] [address] PCP - General Internal Medicine 12/11/19 documented as of this encounter
== END 2024-07-17 10:25 | disposition home or self-care (01) ==
LOC: HO.HGI 09:48
PROVIDERS: PCP Nurse Practitioner Family; Visit Provider Nurse Practitioner Family
DX: K22.70 Barrett's esophagus without dysplasia (principal); K21.9 Gastro-esophageal reflux disease without esophagitis; D64.9 Anemia, unspecified; R10.13 Epigastric pain
CPT/HCPCS: 99214; G2211

== ENCOUNTER → 2024-07-17 09:48 | Outpatient (BNVA) | payer OTHER, SELFPAY | PROVIDERS: PCP Nurse Practitioner Family; Visit Provider Nurse Practitioner Family | DX: K22.70 Barrett's esophagus without dysplasia (principal); K21.9 Gastro-esophageal reflux disease without esophagitis; D64.9 Anemia, unspecified; R10.13 Epigastric pain | CPT/HCPCS: 99212 ==

== ENCOUNTER 2024-07-26 07:47 | Outpatient (REF) | payer OTHER, SELFPAY ==
--- NOTE | ~2024-07-26 | FL_ITS ---
EXAMINATION: XR UPPER GI SERIES WITH SMALL BOWEL CLINICAL INFORMATION: Gastroesophageal reflux disease without esophagitis. COMPARISON: None available. TECHNIQUE: Routine upper GI contrast study was performed in upright and lying position. FINDINGS: Following oral administration of thick barium and effervescent granules there is normal propagation of bolus from the oral cavity through the pharynx, esophagus into stomach without any evidence of obstruction, narrowing or stricture. No extrinsic compression seen. No laryngeal penetration or aspiration seen. On placing patient in supine and prone lying there is mild gastroesophageal reflux with a small sliding hiatal hernia. The mucosal pattern of the stomach, duodenal bulb and this CT is normal. The size hiatal hernia rest of the gastric course, caliber and peristalsis normal. FLUOROSCOPY TIME: 2 minutes 20 seconds Dose area product: [id number] uGy-m2 (microgray-meter squared) FL/FL upper GI w air w Ba Swallow IMPRESSION: Small sliding hiatal hernia with mild gastroesophageal reflux. Electronically signed by: Erik Alfaro MD 07/26/2024 12:50 PM EDT
--- OUTSIDE RECORDS SUMMARY | 2024-07-26 07:51 | XMS_ITS | Encounter Summary ---
Author Organization [facility] Address [address] [place] [address] Care Team Providers Care Water Jet Loom Fixer Name Role Phone Fritz Shelley MD Primary Care Provider +1- [phone] Reason for Visit * Reason Comments Other Encounter Details Date Type Department Care Team ([facility] st Contact Info) Description 09/22/2020 Telephone [facility] Urologic Surgery [place] [address] [phone] Nicholas Fernandez MD [address] [address] Other Social History Tobacco Use Types Packs/Day Years Used Date Smoking Tobacco: Former Smokeless Tobacco: Never Sex and Gender Information Value Date Recorded Sex Assigned at Not on file Legal Sex Male 6:32 PM EST Gender Identity Not on file Sexual Orientation Not on file documented as of this encounter Plan of Treatment Not on file documented as of this encounter Visit Diagnoses Not on filedocumented in this encounter Care Teams Water Jet Loom Fixer Relationship Specialty Start Date End Date Fritz Shelley MD [address] [place] [address] [place] [address] PCP - General Internal Medicine 12/11/19 documented as of this encounter
--- OUTSIDE RECORDS SUMMARY | 2024-07-26 07:51 | XMS_ITS | Encounter Summary ---
Author Organization [facility] Address [address] [place] [address] Care Team Providers Care Fios Line Installer Name Role Phone Fritz Shelley MD Primary Care Provider +1- [phone] Reason for Visit * Reason Comments Appointment Encounter Details Date Type Department Care Team ([facility] st Contact Info) Description 10/22/[address] [facility] [address] [place] [phone] Nicholas Fernandez MD [address] [address] Appointment Social History Tobacco Use Types Packs/Day [...] on filedocumented in this encounter Care Teams Fios Line Installer Relationship Specialty Start Date End Date Fritz Shelley MD [address] [place] [address] [address] PCP - General Internal Medicine 12/11/19 documented as of this encounter
--- OUTSIDE RECORDS SUMMARY | 2024-07-26 07:51 | XMS_ITS | Clinical Summary ---
Author Organization [facility] Address [address] [place] [address] Care Team Providers Care Hospice Nurse Name Role Phone Fritz Shelley MD Primary Care Provider +1- [phone] Allergies No known active allergies Medications gemfibrozil (LOPID) 600 MG tablet Take 600 [...] on patient's age to complete this topic Insurance [facility] Care Teams Hospice Nurse Relationship Specialty Start Date End Date Fritz Shelley MD [address] [place] [address] [place] [address] PCP - General Internal Medicine 12/11/19
--- OUTSIDE RECORDS SUMMARY | 2024-07-26 07:51 | XMS_ITS | Encounter Summary ---
Author Organization [facility] Address [address] [place] [address] Care Team Providers Care Lamp Shades Supervisor Name Role Phone Fritz Shelley MD Primary Care Provider +1- [phone] Reason for Visit * Reason Comments Prior Authorization xiaflex Encounter Details Date Type Department Care Team (Late st Contact Info) Description 02/19/2020 Telephone [facility] Urologic Surgery [place] [address] [facility] [address] [place] [phone] Deborah Figueroa MD [address] [facility] [address] [place] [address] Prior Authorization (xiaflex) Social History Tobacco Use [...] on filedocumented in this encounter Care Teams Lamp Shades Supervisor Relationship Specialty Start Date End Date Fritz Shelley MD [address] [place] [address] [place] [address] PCP - General Internal Medicine 12/11/19 documented as of this encounter
[2024-07-26 10:21] LABS: Hematocrit 31.9 % (42.0-52.0); Mean Corpuscular HGB Conc 34.5 g/dl (31.0-36.0); Mean Corpuscular Hemoglobin 31.1 pg (27.0-33.0); Mean Corpuscular Volume 90.1 fL (80.0-98.0); Mean Platelet Volume 9.7 fL (9.4-12.4); Platelet Count 176 X10*3/uL (160-400); Red Blood Count 3.54 X10*6/uL (4.60-5.80); Red Cell Distribution Width 13.2 % (11.0-16.0); White Blood Count 4.6 X10*3/uL (4.8-10.8)
[2024-07-26 11:21] LABS: Folate 15.2 ng/mL (> or = 4.0); Vitamin B12 364 pg/mL (200-900)
[2024-07-27 22:48] LABS: Transglutaminase IgA <1.0 U/mL
[2024-07-31 16:03] LABS: Vitamin D 25-OH, D2 <4 ng/mL; Vitamin D 25-OH, D3 46 ng/mL; Vitamin D 25-OH, Total 46 ng/mL (30-100)
== END 2024-07-26 07:48 | disposition home or self-care (01) ==
LOC: HO.XRAY 07:47
PROVIDERS: PCP Nurse Practitioner Family; Visit Provider Nurse Practitioner Family
DX: K21.9 Gastro-esophageal reflux disease without esophagitis (principal); R19.7 Diarrhea, unspecified; E55.9 Vitamin D deficiency, unspecified; R10.9 Unspecified abdominal pain
CPT/HCPCS: 36415; 74246; 82306; 82607; 82746; 85027; 86364

== ENCOUNTER → 2024-07-26 07:48 | Outpatient (BNV) | payer OTHER, SELFPAY | PROVIDERS: PCP Nurse Practitioner Family; Visit Provider Radiology Diagnostic Radiology | DX: K21.9 Gastro-esophageal reflux disease without esophagitis (principal) | CPT/HCPCS: 74246 ==

== ENCOUNTER 2024-08-05 19:25 | Inpatient (IN) | payer OTHER, SELFPAY ==
--- NOTE | ~2024-08-05 | XR_ITS ---
CLINICAL HISTORY: ? free air 1 view chest x-ray Comparison: CR/SR - XR CHEST 2V - 04/16/24 08:59 EST Findings: The lungs are clear. Heart size is normal. No acute fracture. No free air under the diaphragm. IMPRESSION: 1. No acute findings. This document has been electronically signed by: Eva Neumann MD on 08/05/2024 21:47:47
[2024-08-05 19:34] VITALS: BP 163/108; PULSE 133; RESP 18; TEMP 36.8; O2SAT 96; BMI 29.0
--- NOTE | 2024-08-05 19:37 | ED.GENADULT ---
HPI - General Adult General Chief complaint: GI Bleed Stated complaint: Vomiting Blood Time Seen by Provider: 08/05/24 20:08 History of Present Illness ED Provider: Dr. Little HPI narrative: 58 y/o M patient; PMH alcohol use disorder, bipolar disorder, MDD, GERD, HLD, T2DM; presents from home reporting increased alcohol intake recently in the setting of his mother recently passing away. The patient does report an episode of coffee ground emesis prior to arrival. He otherwise denies: fever or chills, SOB, cough/congestion. The patient was previously seen in this emergency department on 04/16/2024 where he was informed that he might have esophageal varices and was recommended to follow up with GI out-patient as well as continue his pantoprazole. He had upper endoscopy and colonoscopy on 06/28/2024 without evidence of varices, he had Valles's esophagus. Related Data Home Medications ?Medication ?Instructions ?Recorded ?Confirmed quetiapine 100 mg tablet 200 - 300 mg PO BEDTIME PRN anxiety 03/08/23 08/05/24 multivitamin 1 tab PO DAILY 02/28/24 08/05/24 melatonin 3 mg tablet 3 - 9 mg PO BEDTIME PRN Sleep 04/20/24 08/05/24 Nugenix 3 tab PO DAILY 06/11/24 08/05/24 bupropion HCl 200 mg tablet,12 hr 200 mg PO DAILY 06/11/24 08/05/24 sustained-release labetalol 300 mg tablet 300 mg PO BID 06/11/24 08/05/24 Previous Rx's ?Medication ?Instructions ?Recorded metformin 1,000 mg tablet 1,000 mg PO BID 90 days #180 tabs 03/26/24 pantoprazole 40 mg tablet,delayed 40 mg PO DAILY@0630 #90 tabs 04/05/24 release rosuvastatin 40 mg tablet 40 mg PO BEDTIME #90 tabs 06/03/24 Allergies Allergy/AdvReac Type Severity Reaction Status Date / Time No Known Allergies Allergy Verified 08/05/24 19:37 [No Known Allergies*] Review of Systems Review of Systems: Yes all other systems are reviewed and are negative PMFSH Past Medical History Attestation statement: The following information was validated with the patient. 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 esophagus History of varicose veins Fatty liver Obstructive sleep apnea Essential and other specified forms of tremor Hypersomnolence Snoring Diabetes mellitus Alcoholic ketoacidosis Anxiety with depression Alcohol use disorder, severe, dependence Recurrent moderate major depressive disorder with anxiety Insomnia Alcohol withdrawal History of alcoholic hepatitis HTN (hypertension) Acute hepatitis Alcohol abuse with withdrawal Obesity (BMI 30-39.9) GERD without esophagitis Mixed hyperlipidemia Benign essential hypertension Surgical History History of right-sided carotid endarterectomy History of esophagogastroduodenoscopy (EGD) H/O colonoscopy Family History Family History Father Advanced cirrhosis of liver Alcoholic cirrhosis Substance use disorder Mother Dementia Maternal Grandfather Substance use disorder Sister Substance use disorder Maternal Grandfather Colon cancer Prostate cancer Social History Social History Household Members: Significant Other Household Members Other:: Cousin Housing: House Are you a primary post anesthesia care unit nurse to a significant other at home: No Do you presently have visiting nurse or other home services: No Unable to assess alcohol history related to: Unknown Alcohol intake: current Alcohol intake frequency: 3 or more drinks per day Alcohol type: hard liquor Patient Tobacco Use Status: Former Tobacco user Tobacco use type: Cigarette Years Smoked: quit 10 years ago Smoked in Last 30 Days: No e-Cigarette/Vaping Use: Never Used Second Hand Smoke Exposure: No Use of substances other than those prescribed or required for medical reasons: Yes Substance Use Type: Marijuana Substance Use Frequency: Occasionally Have you been hit, kicked, punched, or otherwise hurt by someone within the past year? 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 Physical Exam ED Vital Signs: Vital Signs - 24 hr 08/05/24 19:34 08/05/24 21:35 08/05/24 22:00 Temperature 98.3 F 98.2 F Pulse Rate 133 H 116 H Pulse Rate [Monitor] 110 H Respiratory Rate 18 12 Blood Pressure 163/108 H 162/106 H Pulse Oximetry 96 96 Oxygen Delivery Method Room Air Room Air 08/05/24 23:34 08/06/24 01:53 08/06/24 04:00 Temperature 98.2 F 98.1 F 98.3 F Pulse Rate 108 H 75 83 Pulse Rate [Monitor] Respiratory Rate 14 16 17 Blood Pressure 174/99 H 105/68 135/83 Pulse Oximetry 96 96 96 Oxygen Delivery Method Room Air Room Air Room Air 08/06/24 06:00 08/06/24 07:09 08/06/24 08:14 Temperature 98.2 F 99.1 F Pulse Rate 85 85 85 Pulse Rate [Monitor] Respiratory Rate 12 16 Blood Pressure 139/80 140/88 H 140/88 H Pulse Oximetry 97 95 Oxygen Delivery Method Room Air Room Air 08/06/24 09:10 Temperature 98.3 F Pulse Rate 74 Pulse Rate [Monitor] Respiratory Rate 18 Blood Pressure 127/84 Pulse Oximetry 98 Oxygen Delivery Method Room Air BMI result Body Mass Index 29.0 Patient is afebrile, tachycardic, and hypertensive. Const General: cooperative HENMT Head: Yes normal to inspection and Yes atraumatic Eyes General: appearance normal, both eyes and all related structures Pupils: Equal, round and reactive pupils present EOM: EOMs intact bilaterally Neck Neck: Yes normal visual inspection, Yes full ROM, Yes supple and No tender Chest Chest palpation & inspection: normal inspection of the chest and normal palpation of entire chest wall Resp Effort & Inspection: normal respiratory effort, able to speak in complete sentences, no cough and no respiratory distress Auscultation: clear to auscultation bilaterally Cardio Rate: tachycardic Rhythm: regular rhythm Peripheral pulses: Peripheral pulses 2+ throughout GI Inspection: No Abdominal wall edema and No distended Palpation (GI): Soft to palpation, not firm, nontender, no guarding and not rigid Auscultation: normal bowel sounds Back/Spine/Pelvis Back: No back tenderness Neuro Cranial nerves: Yes Equal, round and reactive pupils present Course Course Course Narrative: RME: 58 yold male presents to the ED dfor vomitting large amounts of coffee ground blood. patient has been on a drinking binge due to of mother. Patient is tachycardic and pale. Heart rate hives and triage to 262 and down to 132. Labs EKG ordered. Patient brought back to immediately ED immediately Reevaluation(s) Reevaluation #1: Patient is afebrile, tachycardic, and hypertensive. Reviewed patient's EKG and labs. EKG as interpreted by myself: ST 117BPM with normal intervals, without ischemic changes Labs reviewed. Mild leukocytosis 12.3. Hgb appropriate at 14.5. Suspect degree of hemoconcentration 2/2 to dehydration. INR appropriate at 1.0. Anion gap 25. Cr 1.21, consistent with prior baseline. Glucose 340 without evidence of DKA or HHS, suspect hyperglycemia in the setting of alcohol intoxication. Alcohol 317. Utox positive only for marijuana which patient did admit to. Providing 2L IVF. Provided Protonix 40mg IV given episode of coffee ground emesis. Zofran provided for anti-emetic. Ordered 1 view upright CXR to assess for free air. XR without evidence of free air. Patient placed on CIWA. Initial CIWA 14. Started on Librium 50mg PO. Thiamine 500mg IV and multivitamin. Provided 3rd L IVF and 2nd dose Zofran 4mg IV. Reevaluation #2: Glucose improved from 340 to 215 with IV fluids 2L total. Provided 2nd dose of Librium 2hr after 1st dose. Patient's HR and glucose have been responding appropriately to the above therapy. Patient states he has not taken his home medications in over 7 days. Will re-start his Labetalol, Metformin, Wellbutrin, and Multivitamin. Held his Pantoprazole right now as provided IV dose. Ordered for PRN Tylenol for headache management. Repeat BMP improving with anion gap from 25 to 19. Plan: Transition care to Dr. Ruiz pending care team recommendations Condition: Stable Reevaluation #3: 08/06/2024 at 07:35 hours, Dr. Eduardo Hawkins's note: 58-year-old male with a history of bipolar disorder, MDD, GERD, hyperlipidemia, diabetes mellitus, Valles's esophagitis, alcohol use disorder who was initially seen by Dr. Little proximally 12 hours ago, kept in the emergency department overnight for care team evaluation for depression. The patient states in his mother 1 week prior and this triggered him to go on a ?penaloza?. He states that he drinks episodically but when he drinks he drinks large amounts of vodka. He states for the last week he has been drinking 1 L of vodka daily. His last drink was prior to coming to emergency department. He states that he was vomiting 2 to 3 times a day but yesterday prior to coming to the emergency department he vomited at least 6 times and on the last episode he was girlfriend noted dark coffee-ground emesis which was concerning for the patient and he came to the emergency department. The patient states that he was depressed but he denies being suicidal or homicidal. When I re-evaluated the patient in the morning he was extremely tremulous. He was not had alcohol withdrawal seizures but he was had delirium tremors in the past where he was had auditory and visual hallucinations. Patient was CIWA score was 12. Given the significant amount of alcohol that he was drank over the last week, his elevated CIWA score in his history of DTs I do not think that this patient can be detox as an outpatient and will need to be admitted for alcohol detox. Patient's blood work yesterday did reveal a normal hemoglobin of 14.5. A type and screen was ordered. I will repeat a CBC and CMP on the patient. Patient was exam did reveal that he was extremely tremulous, he had mild diffuse abdominal tenderness with no localizing tenderness and normoactive bowel sounds. Patient was awake and oriented and is not hallucinating at this time. Patient was started on the phenobarbital protocol 12 milligram/kilogram loading dose as per protocol. I did discuss the patient's presentation over tiger text with the covering hospitalist, Dr. Estrella and the patient will be admitted for further treatment. Medications Administered Generic Name Dose Route Start Last Admin Trade Name Freq PRN Reason Stop Dose Admin Acetaminophen 650 mg 08/05/24 23:50 08/06/24 00:28 Acetaminophen 325 Mg Tablet PO 650 mg QID PRN Administration Headache/Pain, Scale 1-10 Bupropion HCl 150 mg 08/06/24 09:00 08/06/24 08:14 Bupropion Hcl Xl 150 Mg Tab.Er.24h PO 150 mg DAILY MAILE Administration Lactated Ringer's 1,000 mls @ 100 mls/hr 08/06/24 08:30 08/06/24 09:09 Lr IVCONT 100 mls/hr .Q10H MAILE Administration Labetalol HCl 300 mg 08/06/24 00:00 08/06/24 08:14 Labetalol Hcl 100 Mg Tablet PO 300 mg BID MAILE Administration Metformin HCl 1,000 mg 08/05/24 23:45 08/06/24 08:14 Metformin Hcl 1,000 Mg Tablet PO 1,000 mg BIDWM MAILE Administration Multivitamins/Vitamin C 1 tab 08/06/24 09:00 08/06/24 08:14 Multivitamin Tablet PO 1 tab DAILY MAILE Administration Discontinued Medications Generic Name Dose Route Start Last Admin Trade Name Freq PRN Reason Stop Dose Admin Chlordiazepoxide HCl 50 mg 08/05/24 21:41 08/05/24 21:50 Chlordiazepoxide Hcl 25 Mg Capsule PO 08/05/24 21:42 50 mg ONCE ONE Administration Chlordiazepoxide HCl 50 mg 08/05/24 23:27 08/06/24 00:28 Chlordiazepoxide Hcl 25 Mg Capsule PO 08/05/24 23:28 50 mg ONCE ONE Administration Sodium Chloride 1,000 mls @ 999 mls/hr 08/05/24 20:45 08/05/24 22:02 Ns IV 08/05/24 21:45 Infused .Q1H1M MAILE Infusion Sodium Chloride 1,000 mls @ 999 mls/hr 08/05/24 20:45 08/05/24 22:02 Ns IV 08/05/24 21:45 Infused .Q1H1M MAILE Infusion Thiamine HCl 500 mg/ Sodium 105 mls @ 210 mls/hr 08/05/24 21:41 08/05/24 23:01 Chloride IV 08/05/24 22:10 Infused ONCE ONE Infusion Sodium Chloride 1,000 mls @ 999 mls/hr 08/05/24 22:45 08/05/24 23:51 Ns IV 08/05/24 23:45 Infused .Q1H1M MAILE Infusion Multivitamins/Vitamin C 1 tab 08/05/24 21:41 08/05/24 21:51 Multivitamin Tablet PO 08/05/24 21:42 1 tab ONCE ONE Administration Ondansetron HCl 4 mg 08/05/24 20:58 08/05/24 21:07 Ondansetron Hcl 4 Mg/2 Ml Vial IVPUSH 08/05/24 20:59 4 mg ONCE ONE Administration Ondansetron HCl 4 mg 08/05/24 22:42 08/05/24 22:49 Ondansetron Hcl 4 Mg/2 Ml Vial IVPUSH 08/05/24 22:43 4 mg ONCE ONE Administration Ondansetron HCl 4 mg 08/06/24 09:35 08/06/24 09:50 Ondansetron Hcl 4 Mg/2 Ml Vial IVPUSH 08/06/24 09:36 4 mg ONCE ONE Administration Pantoprazole Sodium 40 mg 08/05/24 20:57 08/05/24 21:07 Pantoprazole Sodium 40 Mg/10 Ml Vial IVPUSH 08/05/24 20:58 40 mg ONCE ONE Administration Phenobarbital Sodium 317 mg 08/06/24 08:00 08/06/24 08:15 Phenobarbital Sodium 130 Mg/Ml Im Once IM 08/06/24 08:01 317 mg ONCE ONE Administration Protocol Phenobarbital Sodium 238 mg 08/06/24 11:00 08/06/24 11:14 Phenobarbital Sodium 130 Mg/Ml Vial Im Q3hx2 IM 08/06/24 14:01 238 mg Q3H MAILE Administration Protocol Medical Decision Making Lab Data 08/06/24 07:50 08/06/24 07:50 Labs: Lab Results 08/05/24 08/05/24 08/05/24 Range/Units 19:51 22:08 22:58 WBC 12.3 H (4.8-10.8) X10*3/uL RBC 4.72 D (4.60-5.80) X10*6/uL Hgb 14.5 D (14.0-18.0) g/dl Hct 39.5 L D (42.0-52.0) % MCV 83.7 (80.0-98.0) fL MCH 30.7 (27.0-33.0) pg MCHC 36.7 H (31.0-36.0) g/dl RDW 12.7 (11.0-16.0) % Plt Count 235 D (160-400) X10*3/uL MPV 8.9 L (9.4-12.4) fL Immature Gran % (Auto) 0.4 (0.0-0.4) % Neut % (Auto) 75.4 H (45-73) % Lymph % (Auto) 18.2 L (20-40) % Benton % (Auto) 5.3 (2-11) % Eos % (Auto) 0.4 (0-4) % Baso % (Auto) 0.3 (0-2) % Lymph # (Auto) 2.2 (1.2-4.9) X10*3/uL Benton # (Auto) 0.7 (0.1-1.2) X10*3/uL Eos # (Auto) 0.1 (0.0-0.4) X10*3/uL Baso # (Auto) 0.0 (0.0-0.2) X10*3/uL Abs Immat Gran (auto) 0.05 H (0.00-0.03) X10*3/uL Absolute Neuts (auto) 9.3 H (2.0-8.3) x10*3/uL Absolute Nucleated RBC 0.000 (0.0-0.012) X10*3/uL Nucleated RBC % (auto) 0.0 (0.0-0.2) /100WBC PT 11.4 (10.9-12.4) SEC INR 1.0 (0.9-1.1) APTT 27.7 (26.0-36.8) SEC Sodium 136 (135-145) mmol/L Potassium 3.4 (3.3-5.1) mmol/L Chloride 86 L (96-108) mmol/L Carbon Dioxide 28 (22-29) mmol/L Anion Gap 25 H (12-20) BUN 18 H (9-16) mg/dL Creatinine 1.21 (0.5-1.4) mg/dL Estim Creat Clear Calc 70.6 Estimated GFR > 60 POC Glucose 215 H (60-115) mg/dL Random Glucose 340 H (60-115) mg/dL Calcium 11.8 H D (8.4-10.2) mg/dL Total Bilirubin 0.6 (0.0-1.0) mg/dL AST 37 (5-37) U/L ALT 24 (0-40) U/L Alkaline Phosphatase 65 (39-117) U/L Total Protein 7.8 (6.5-8.0) g/dL Albumin 4.9 (3.5-5.0) g/dL Urine Color Yellow Urine Appearance Clear Urine pH 6.0 (5.0-9.0) Ur Specific Lawrence 1.010 (1.005-1.025) Urine Protein 30 (1+) H (Neg-Trace) mg/dL Urine Glucose (UA) 500 H (Negative) mg/dL Urine Ketones 15 (Negative) mg/dL Urine Blood Negative (Negative) Urine Nitrite Negative (Negative) Ur Leukocyte Esterase Negative (Negative) Urine RBC 0-2 (0-2) /HPF Urine WBC 0-5 (0-5) /HPF Ur Squamous Epith Cells 0-2 (0-2) /HPF Urine Bacteria None Seen (None Seen) Hyaline Casts 0-2 (0-2) /LPF Urine Opiates Screen Not Detected (Not Detect) Ur Buprenorphine Scrn Not Detected (Not Detect) ng/mL Ur Oxycodone Screen Not Detected (Not Detect) ng/mL Urine Methadone Screen Not Detected (Not Detect) ng/mL Urine Fentanyl Screen Not Detected (Not Detect) Ur Barbiturates Screen Not Detected (Not Detect) Ur Phencyclidine Scrn Not Detected (Not Detect) Ur Amphetamines Screen Not Detected (Not Detect) U Benzodiazepines Scrn Not Detected (Not Detect) Urine Cocaine Screen Not Detected (Not Detect) U Marijuana (THC) Screen POSITIVE H (Not Detect) Ethyl Alcohol 317 H* mg/dL Blood Type O Positive Antibody Screen NEGATIVE 08/06/24 08/06/24 08/06/24 Range/Units 00:14 00:53 07:10 WBC (4.8-10.8) X10*3/uL RBC (4.60-5.80) X10*6/uL Hgb (14.0-18.0) g/dl Hct (42.0-52.0) % MCV (80.0-98.0) fL MCH (27.0-33.0) pg MCHC (31.0-36.0) g/dl RDW (11.0-16.0) % Plt Count (160-400) X10*3/uL MPV (9.4-12.4) fL Immature Gran % (Auto) (0.0-0.4) % Neut % (Auto) (45-73) % Lymph % (Auto) (20-40) % Benton % (Auto) (2-11) % Eos % (Auto) (0-4) % Baso % (Auto) (0-2) % Lymph # (Auto) (1.2-4.9) X10*3/uL Benton # (Auto) (0.1-1.2) X10*3/uL Eos # (Auto) (0.0-0.4) X10*3/uL Baso # (Auto) (0.0-0.2) X10*3/uL Abs Immat Gran (auto) (0.00-0.03) X10*3/uL Absolute Neuts (auto) (2.0-8.3) x10*3/uL Absolute Nucleated RBC (0.0-0.012) X10*3/uL Nucleated RBC % (auto) (0.0-0.2) /100WBC PT (10.9-12.4) SEC INR (0.9-1.1) APTT (26.0-36.8) SEC Sodium 141 (135-145) mmol/L Potassium 3.6 (3.3-5.1) mmol/L Chloride 99 (96-108) mmol/L Carbon Dioxide 27 (22-29) mmol/L Anion Gap 19 (12-20) BUN 14 (9-16) mg/dL Creatinine 0.87 (0.5-1.4) mg/dL Estim Creat Clear Calc 98.1 Estimated GFR > 60 POC Glucose 164 H 166 H (60-115) mg/dL Random Glucose 175 H (60-115) mg/dL Calcium 9.8 D (8.4-10.2) mg/dL Total Bilirubin (0.0-1.0) mg/dL AST (5-37) U/L ALT (0-40) U/L Alkaline Phosphatase (39-117) U/L Total Protein (6.5-8.0) g/dL Albumin (3.5-5.0) g/dL Urine Color Urine Appearance Urine pH (5.0-9.0) Ur Specific Lawrence (1.005-1.025) Urine Protein (Neg-Trace) mg/dL Urine Glucose (UA) (Negative) mg/dL Urine Ketones (Negative) mg/dL Urine Blood (Negative) Urine Nitrite (Negative) Ur Leukocyte Esterase (Negative) Urine RBC (0-2) /HPF Urine WBC (0-5) /HPF Ur Squamous Epith Cells (0-2) /HPF Urine Bacteria (None Seen) Hyaline Casts (0-2) /LPF Urine Opiates Screen (Not Detect) Ur Buprenorphine Scrn (Not Detect) ng/mL Ur Oxycodone Screen (Not Detect) ng/mL Urine Methadone Screen (Not Detect) ng/mL Urine Fentanyl Screen (Not Detect) Ur Barbiturates Screen (Not Detect) Ur Phencyclidine Scrn (Not Detect) Ur Amphetamines Screen (Not Detect) U Benzodiazepines Scrn (Not Detect) Urine Cocaine Screen (Not Detect) U Marijuana (THC) Screen (Not Detect) Ethyl Alcohol mg/dL Blood Type Antibody Screen 08/06/24 Range/Units 07:50 WBC 5.7 (4.8-10.8) X10*3/uL RBC 3.69 L D (4.60-5.80) X10*6/uL Hgb 11.4 L D (14.0-18.0) g/dl Hct 31.8 L (42.0-52.0) % MCV 86.2 (80.0-98.0) fL MCH 30.9 (27.0-33.0) pg MCHC 35.8 (31.0-36.0) g/dl RDW 13.0 (11.0-16.0) % Plt Count 150 L D (160-400) X10*3/uL MPV 9.4 (9.4-12.4) fL Immature Gran % (Auto) 0.2 (0.0-0.4) % Neut % (Auto) 62.1 (45-73) % Lymph % (Auto) 28.1 (20-40) % Benton % (Auto) 7.3 (2-11) % Eos % (Auto) 1.8 (0-4) % Baso % (Auto) 0.5 (0-2) % Lymph # (Auto) 1.6 (1.2-4.9) X10*3/uL Benton # (Auto) 0.4 (0.1-1.2) X10*3/uL Eos # (Auto) 0.1 (0.0-0.4) X10*3/uL Baso # (Auto) 0.0 (0.0-0.2) X10*3/uL Abs Immat Gran (auto) 0.01 (0.00-0.03) X10*3/uL Absolute Neuts (auto) 3.5 (2.0-8.3) x10*3/uL Absolute Nucleated RBC 0.000 (0.0-0.012) X10*3/uL Nucleated RBC % (auto) 0.0 (0.0-0.2) /100WBC PT (10.9-12.4) SEC INR (0.9-1.1) APTT (26.0-36.8) SEC Sodium 143 (135-145) mmol/L Potassium 3.6 (3.3-5.1) mmol/L Chloride 99 (96-108) mmol/L Carbon Dioxide 31 H (22-29) mmol/L Anion Gap 17 (12-20) BUN 13 (9-16) mg/dL Creatinine 0.98 (0.5-1.4) mg/dL Estim Creat Clear Calc 87.1 Estimated GFR > 60 POC Glucose (60-115) mg/dL Random Glucose 171 H (60-115) mg/dL Calcium 9.5 (8.4-10.2) mg/dL Total Bilirubin 0.5 (0.0-1.0) mg/dL AST 27 (5-37) U/L ALT 18 (0-40) U/L Alkaline Phosphatase 49 (39-117) U/L Total Protein 6.1 L (6.5-8.0) g/dL Albumin 3.9 (3.5-5.0) g/dL Urine Color Urine Appearance Urine pH (5.0-9.0) Ur Specific Lawrence (1.005-1.025) Urine Protein (Neg-Trace) mg/dL Urine Glucose (UA) (Negative) mg/dL Urine Ketones (Negative) mg/dL Urine Blood (Negative) Urine Nitrite (Negative) Ur Leukocyte Esterase (Negative) Urine RBC (0-2) /HPF Urine WBC (0-5) /HPF Ur Squamous Epith Cells (0-2) /HPF Urine Bacteria (None Seen) Hyaline Casts (0-2) /LPF Urine Opiates Screen (Not Detect) Ur Buprenorphine Scrn (Not Detect) ng/mL Ur Oxycodone Screen (Not Detect) ng/mL Urine Methadone Screen (Not Detect) ng/mL Urine Fentanyl Screen (Not Detect) Ur Barbiturates Screen (Not Detect) Ur Phencyclidine Scrn (Not Detect) Ur Amphetamines Screen (Not Detect) U Benzodiazepines Scrn (Not Detect) Urine Cocaine Screen (Not Detect) U Marijuana (THC) Screen (Not Detect) Ethyl Alcohol mg/dL Blood Type Antibody Screen Radiology Impression Discussion of test interpretation with radiology: I have reviewed the radiologist's reading. Radiologist Impression: CLINICAL HISTORY: ? free air 1 view chest x-ray Comparison: CR/SR - XR CHEST 2V - 04/16/24 08:59 EST Findings: The lungs are clear. Heart size is normal. No acute fracture. No free air under the diaphragm. IMPRESSION: 1. No acute findings. This document has been electronically signed by: Eva Neumann MD on 08/05/2024 21:47:47 Critical Care Time Critical Care Time Critical Care Time: Yes Total Critical Care Time: 45 Attestation: Critical Care: The patient was critically ill with a high probability of imminent or life threatening deterioration. I spent greater than 30 minutes of discontinuous time evaluating the patient,delivering critical care at the bedside, discussing and evaluating pertinent data with consultants. Critical care time does not include time spent performing separately billable procedures or teaching. Total time spent performing critical care was 45 minutes. Discharge Plan Discharge Clinical Impression: Hyperglycemia, Alcohol use disorder Patient Disposition: Admitted As Inpatient Interventions: Admission Worksheet (ED) Last Done: 08/06/24 10:18
--- NOTE | 2024-08-05 19:38 | ECG_ITS ---
Test Reason : TACHYCARDIA Blood Pressure : */* mmHG Vent. Rate : 117 BPM Atrial Rate : 117 BPM P-R Int : 164 ms QRS Dur : 94 ms QT Int : 328 ms P-R-T Axes : 10 72 17 degrees QTcB Int : 457 ms Sinus tachycardia Otherwise normal ECG When compared with ECG of 11-Jun-2024 09:09, Vent. rate has increased by 62 bpm Questionable change in QRS axis Referred By: Fox Garcia Electronically Signed By: Bahman Chavira
[2024-08-05 19:58] LABS: MANUAL DIFF FLAG NO
[2024-08-05 19:59] LABS: Basophils Percent Auto 0.3 % (0-2); Eosinophils Absolute Auto 0.1 X10*3/uL (0.0-0.4); Eosinophils Percent Auto 0.4 % (0-4); Hematocrit 39.5 % (42.0-52.0); Hemoglobin 14.5 g/dl (14.0-18.0); Imm Gran Abs Auto 0.05 X10*3/uL (0.00-0.03); Imm Gran Pct Auto 0.4 % (0.0-0.4); Lymphocytes Absolute Auto 2.2 X10*3/uL (1.2-4.9); Lymphocytes Percent Auto 18.2 % (20-40); Mean Corpuscular HGB Conc 36.7 g/dl (31.0-36.0); Mean Corpuscular Hemoglobin 30.7 pg (27.0-33.0); Mean Corpuscular Volume 83.7 fL (80.0-98.0); Mean Platelet Volume 8.9 fL (9.4-12.4); Monocytes Absolute Auto 0.7 X10*3/uL (0.1-1.2); Monocytes Percent Auto 5.3 % (2-11); Neutrophils Absolute Auto 9.3 x10*3/uL (2.0-8.3); Neutrophils Percent Auto 75.4 % (45-73); Platelet Count 235 X10*3/uL (160-400); Red Blood Count 4.72 X10*6/uL (4.60-5.80); Red Cell Distribution Width 12.7 % (11.0-16.0); White Blood Count 12.3 X10*3/uL (4.8-10.8)
[2024-08-05 20:04] LABS: Prothrombin Time 11.4 SEC (10.9-12.4)
[2024-08-05 20:07] LABS: Partial Thromboplastin Time 27.7 SEC (26.0-36.8)
[2024-08-05 20:19] LABS: Alanine Aminotransferase 24 U/L (0-40); Albumin Level 4.9 g/dL (3.5-5.0); Alkaline Phosphatase 65 U/L (39-117); Anion Gap 25 (12-20); Aspartate Amino Transferase 37 U/L (5-37); Bilirubin Total 0.6 mg/dL (0.0-1.0); Blood Urea Nitrogen 18 mg/dL (9-16); Calcium 11.8 mg/dL (8.4-10.2); Carbon Dioxide 28 mmol/L (22-29); Chloride 86 mmol/L (96-108); Creatinine Clr Calc Pharmacy 70.6; Estimated Glomerular Filt Rate > 60; Ethanol 317 mg/dL; Glucose Random 340 mg/dL (60-115); Potassium 3.4 mmol/L (3.3-5.1); Sodium 136 mmol/L (135-145); Total Protein 7.8 g/dL (6.5-8.0)
--- OUTSIDE RECORDS SUMMARY | 2024-08-05 20:47 | XMS_ITS | Encounter Summary ---
Author Organization [facility] Address [address] [place] [address] Care Team Providers Care Inseamer Name Role Phone Fritz Shelley MD Primary Care Provider [phone] Reason for Visit * Reason Comments Appointment Encounter Details Date Type Department Care Team ([facility] st Contact Info) Description 10/22/2020 Telephone [facility] [address] [place] [phone] Nicholas Fernandez MD [address] [address] Appointment Social History Tobacco Use Types Packs/Day [...] on filedocumented in this encounter Care Teams Inseamer Relationship Specialty Start Date End Date Fritz Shelley MD [address] [place] [id number] PCP - General Internal Medicine 12/11/19 documented as of this encounter
--- OUTSIDE RECORDS SUMMARY | 2024-08-05 20:47 | XMS_ITS | Data Portability ---
Author Organization [place] - [facility], Allergy Address [address] [place] [phone] Care Team Providers Care Dry Cans Operator Name Role Phone LUDY JOHNSON Primary Care Provider [phone] Assessment Encounter Date Assessment Date Assessment LastModified [...] drug-induc ed sleep endoscopy (SURG) 2023 024 [email or web address] [id number] Not available 16:39:19 Surgeries None recorded. Imaging None recorded. Medication Orders None recorded. Patient TargetsNo targets recorded. Patient InstructionsNo instructions recorded. Reason for Referral None Reported. Results Created Date Observation Date Name Description Value Unit Range Abnormal Flag Note LastModifiedBy Organization Detail LastModifiedTime 01/16/2001/16/2024 sleep study , diagn ostic (PROC ) No observ ation record ed. [facility] (Medical Records) [address] [place], [address], 01/16/2024 12:21:38 Result Notes None recorded. Problems Name Problem SNOMED Code Status Onset Date Resolution Date Notes Provider Name and Address Organization Details Recorded Time Disorder of upper respirato ry system 919809539 Active 2015 Other specified diseases of upper respirator y tract; Note: Date Diagnosed: 05/23/2015 10:28 AM (J39.8) Not Available [facility] 02:39:14 Obstructi ve sleep apnea syndrome 66067873 Active 2023 DELMY SEGURA MD [address] [place] [address],[place] [address], [place], [phone] , [place] - [facility] 20:44:56 Tremor 66311461 Active 2023 DELMY SEGURA MD [address] [place] [address],[place] [address], [place], [phone] , [place] - [facility] 20:45:03 Chronic insomnia 890567436 Active 2023 DELMY SEGURA MD [address] [place] [address],[place] [address], [place], [phone] , [place] [facility] 12:08:03 Problem Notes None recorded. Procedures Surgical History Date Name Laterality Status Provider Name and Address Organization Details Recorded Time 01/16/2024 FOL_DP completed DELMY SEGURA MD [address] [place] [address],[place] [address], [place], [phone], [facility] - [facility] 01/13/2024 20:44:48 Imaging Results Imaging Date Name Status LastModified by Organiz ation Details LastModified Time 01/16/2024 sleep study, diagnostic (PROC) completed [facility] (Medical Records) [address] [place], [address], 01/16/2024 12:21:38 Procedure Notes None recorded. Medical [...] mg tablet 2015 active Medicatio n ID: [id number] Du ration Value: 30 Brand Name: quetiapin [...] mg tablet 2015 active Medicatio n ID: [id number] Du ration Value: 30 Brand Name: sertralin [...] 600 mg tablet active Medicatio n ID: [id number] Br and Name: kosta il Send Method: [...] mg tablet 2015 active Medicatio n ID: [id number] Du ration Value: 30 Brand Name: clonazepa [...] layed release 2014 active Medicatio n ID: [id number] Du ration Value: 90 Brand Name: omeprazol [...] Updated DateTime 01/16/2024 170.18 cm 31.3 kg/m2 17449.47 g Kelsey Ba [place] - [facility] 01/16/2024 11:48:17 Social History None recorded. Functional Status None recorded. Mental Status None recorded. Family History Nothing Reported. Medical History No medical history recorded. Past Encounters Encounter ID Performer Location Encounter Start Date Encounter Closed Date Diagnosis/Indication Diagnosis SNOMED-CT Code Diagnosis ICD10 Code Diagnosis Note DELMY SEGURA MD [facility] [address] [phone] 01/16/2024 11:22:17 01/16/2024 13:49:06 Obstructive sleep apnea syndrome 04306553 G47.33 [facility] [place] Tremor [id number] R25.1 Chronic insomnia 3561950 04 F51.04 I am concerned the patient may ultimately not be a good candidate for the inspire implantati on secondary to his chronic insomnia. Encouraged him to continue working with sleep center to get this under control Body mass index 30+ - obesity 165351397 Z68.31 Health Concerns Section Related Observation LastModified by Organization Detai ls LastModified Time None Recorded Concern Status LastModified by Organization Details LastModified Time None Recorded Advance Directives Directive None Recorded Payers Encounter Date Sequence Insurance Name Policy Number Policy Brewer Covered Member ID Brewer Member ID Guarantor Name 01/16/2024 1 [facility] (MEDICAID HMO) JORGE Juan [id number] Jose Miguel Juan Notes Date Note Type [...] June 28, 2022 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
--- OUTSIDE RECORDS SUMMARY | 2024-08-05 20:47 | XMS_ITS | Clinical Summary ---
Author Organization [facility] Address [address] [place] [address] Care Team Providers Care Associate Dentist Name Role Phone Fritz Shelley MD Primary Care Provider +1- [phone] Allergies No known active allergies Medications gemfibrozil [...] (1 of 3 - 19+ 3-dose series) 07/12 Colonoscopy 08/08/2012 Pneumococcal Vaccines 50+ (1 of 1 - PCV) 08/08/2017 Zoster (Shingles) Vaccine (1 of 2) 08/08/2017 Influenza Vaccine 11/10/2023 COVID-19 Vaccine ( - 2023- season) 2023 Insurance [facility] [employer] Care Teams Associate Dentist Relationship Specialty Start Date End Date Fritz Shelley MD [address] [place] [address] [place] [address] PCP - General Internal Medicine 12/11/19
--- OUTSIDE RECORDS SUMMARY | 2024-08-05 20:47 | XMS_ITS | Encounter Summary ---
Author Organization [facility] Address [address] [place] [address] Care Team Providers Care Civil Service Worker Name Role Phone Fritz Shelley MD Primary Care Provider +1- [phone] Reason for Visit * Reason Comments Prior Authorization xiaflex Encounter Details Date Type Department Care Team (Late st Contact Info) Description 02/19/[address] [facility] Urologic Surgery [place] [address] [facility] [address] [place] [phone] Deborah Figueroa MD [address] [facility] [address] [place] [address] Prior Authorization (xiaflex) Social History Tobacco Use [...] on filedocumented in this encounter Care Teams Civil Service Worker Relationship Specialty Start Date End Date Fritz Shelley MD [address] [place] [address] [place] [address] PCP - General Internal Medicine 12/11/19 documented as of this encounter
--- OUTSIDE RECORDS SUMMARY | 2024-08-05 20:47 | XMS_ITS | Encounter Summary ---
Author Organization [facility] Address [address] [place] [address] Care Team Providers Care Electronic Technologist Name Role Phone Fritz Shelley MD Primary Care Provider +1- [phone] Reason for Visit * Reason Comments Other Encounter Details Date Type Department Care Team ([facility] st Contact Info) Description 09/22/2020 Telephone [facility] Urologic Surgery [place] [address] [phone] Nicholas Fernandez MD [address] [address] Other Social History Tobacco Use Types Packs/Day [...] on filedocumented in this encounter Care Teams Electronic Technologist Relationship Specialty Start Date End Date Fritz Shelley MD [address] [place] [address] [place] [address] PCP - General Internal Medicine 12/11/19 documented as of this encounter
[2024-08-05] MEDS: 0.9 % Sodium Chloride 1,000 ML 999 ML IV ×3 (20:55→22:50)
[2024-08-05] MEDS: ondansetron HCL 4 MG/2 ML VIAL IVPUSH ×2 (21:07→22:49)
[2024-08-05] MEDS: Pantoprazole Sodium 40 MG/10 ML VIAL IVPUSH (21:07)
[2024-08-05 21:35] VITALS: PULSE 110
[2024-08-05] MEDS: Thiamine HCL 500 MG in 0.9 % Sodium Chloride 100 ML 210 MG IV (21:50)
[2024-08-05] MEDS: chlordiazePOXIDE HCl 25 MG CAPSULE 50 MG PO (21:50)
[2024-08-05] MEDS: Multivitamin TABLET 1 TAB PO (21:51)
[2024-08-05 22:00] VITALS: BP 162/106; PULSE 116; RESP 12; TEMP 36.8; O2SAT 96
[2024-08-05 22:12] LABS: Glucose, Whole Blood 215 mg/dL (60-115)
[2024-08-05 23:04] LABS: Appearance Urine Clear; Color Urine Yellow; Glucose Urine UA 500 mg/dL (Negative); Leukocyte Esterase Urine Negative (Negative); Nitrite Urine Negative (Negative); UMIC TRIGGER UACC YES; Urine Blood Negative (Negative); Urine Ketones 15 mg/dL (Negative); Urine Protein 30 (1+) mg/dL (Neg-Trace)
[2024-08-05 23:09] LABS: Bacteria Urine None Seen (None Seen); Hyaline Casts Urine 0-2 /LPF (0-2); RBC Urine 0-2 /HPF (0-2); Squamous Epithelial Cell Urine 0-2 /HPF (0-2); WBC Urine 0-5 /HPF (0-5)
[2024-08-05 23:13] LABS: Amphetamine Screen Urine Not Detected (Not Detect); Barbiturates, Urine Not Detected (Not Detect); Benzodiazepines Screen Urine Not Detected (Not Detect); Buprenorphine Scr Not Detected (Not Detect); Cannabinoid Screen Urine POSITIVE (Not Detect); Cocaine Screen Urine Not Detected (Not Detect); Fentanyl, urine Not Detected (Not Detect); Methadone Screen, Urine Not Detected (Not Detect); Opiate Screen Urine Not Detected (Not Detect); Oxycodone Screen Urine Not Detected (Not Detect); Phencyclidine Screen Urine Not Detected (Not Detect)
[2024-08-05 23:34] VITALS: BP 174/99; PULSE 108; RESP 14; TEMP 36.8; O2SAT 96
[2024-08-06] VITALS (14 sets, daily range): BP systolic 105–150; BP diastolic 66–88; PULSE 70–85; RESP 12–18; TEMP 36.3–37.3; O2SAT 95–99
[2024-08-06 00:27] LABS: Glucose, Whole Blood 164 mg/dL (60-115)
[2024-08-06] MEDS: chlordiazePOXIDE HCl 25 MG CAPSULE 50 MG PO (00:28)
[2024-08-06] MEDS: Acetaminophen 325 MG TABLET 650 MG PO ×2 (00:28→14:43)
[2024-08-06] MEDS: Labetalol HCL 100 MG TABLET 300 MG PO ×3 (00:29→20:04)
[2024-08-06] MEDS: metFORMIN HCl 1,000 MG TABLET 1000 MG PO ×3 (00:29→16:27)
[2024-08-06 01:14] LABS: Anion Gap 19 (12-20); Blood Urea Nitrogen 14 mg/dL (9-16); Calcium 9.8 mg/dL (8.4-10.2); Carbon Dioxide 27 mmol/L (22-29); Chloride 99 mmol/L (96-108); Creatinine Clr Calc Pharmacy 98.1; Estimated Glomerular Filt Rate > 60; Glucose Random 175 mg/dL (60-115); Potassium 3.6 mmol/L (3.3-5.1); Sodium 141 mmol/L (135-145)
[2024-08-06 07:13] LABS: Glucose, Whole Blood 166 mg/dL (60-115)
--- NOTE | 2024-08-06 07:23 | PC.NURSE ---
This RN present in room with . Pt has gross tremors and reports significant withdrawal sx. no hx of sz. Is aware o fplan for withdrawal treatment and admission. Is axox3. skin pwd. will maintain clear liquid diet. NSR on monitor.
[2024-08-06 07:55] LABS: MANUAL DIFF FLAG NO
[2024-08-06 07:56] LABS: Basophils Percent Auto 0.5 % (0-2); Eosinophils Absolute Auto 0.1 X10*3/uL (0.0-0.4); Eosinophils Percent Auto 1.8 % (0-4); Hematocrit 31.8 % (42.0-52.0); Hemoglobin 11.4 g/dl (14.0-18.0); Imm Gran Abs Auto 0.01 X10*3/uL (0.00-0.03); Imm Gran Pct Auto 0.2 % (0.0-0.4); Lymphocytes Absolute Auto 1.6 X10*3/uL (1.2-4.9); Lymphocytes Percent Auto 28.1 % (20-40); Mean Corpuscular HGB Conc 35.8 g/dl (31.0-36.0); Mean Corpuscular Hemoglobin 30.9 pg (27.0-33.0); Mean Corpuscular Volume 86.2 fL (80.0-98.0); Mean Platelet Volume 9.4 fL (9.4-12.4); Monocytes Absolute Auto 0.4 X10*3/uL (0.1-1.2); Monocytes Percent Auto 7.3 % (2-11); Neutrophils Absolute Auto 3.5 x10*3/uL (2.0-8.3); Neutrophils Percent Auto 62.1 % (45-73); Platelet Count 150 X10*3/uL (160-400); Red Blood Count 3.69 X10*6/uL (4.60-5.80); White Blood Count 5.7 X10*3/uL (4.8-10.8)
[2024-08-06 08:10] LABS: Alanine Aminotransferase 18 U/L (0-40); Albumin Level 3.9 g/dL (3.5-5.0); Alkaline Phosphatase 49 U/L (39-117); Anion Gap 17 (12-20); Aspartate Amino Transferase 27 U/L (5-37); Bilirubin Total 0.5 mg/dL (0.0-1.0); Blood Urea Nitrogen 13 mg/dL (9-16); Calcium 9.5 mg/dL (8.4-10.2); Carbon Dioxide 31 mmol/L (22-29); Chloride 99 mmol/L (96-108); Creatinine Clr Calc Pharmacy 87.1; Estimated Glomerular Filt Rate > 60; Glucose Random 171 mg/dL (60-115); Potassium 3.6 mmol/L (3.3-5.1); Sodium 143 mmol/L (135-145); Total Protein 6.1 g/dL (6.5-8.0)
[2024-08-06] MEDS: buPROPion HCl XL 150 MG TAB.ER.24H PO (08:14)
[2024-08-06] MEDS: Multivitamin TABLET 1 TAB PO (08:14)
[2024-08-06] MEDS: PHENobarbitaL sodium 130 MG/ML IM ONCE 317 MG IM (08:15)
--- NOTE | 2024-08-06 08:16 | MHC.CARE ---
CARE Team reviewed pt?s chart after receiving a referral from the overnight ED provider. ?There was no indication that pt was in crisis and much of his presentation was related to alcohol use.? CARE Team met with the first shift ED provider who stated that pt does not require a CARE Team consult as his issues are predominantly medical as related to his alcohol use.
--- NOTE | 2024-08-06 09:07 | PM.GICN ---
History of Present Illness Data of Consult Service Date: 08/06/24 Requesting physician: Philip Mares Primary Care Provider: Unknown Physician HPI Reason for consult: Coffee ground emesis This is a 58-year-old gentleman past medical history of obesity, SEBASTIAN, called use disorder, GERD, hypertension, who was brought to the hospital by his girlfriend for an 1 episode of coffee-ground emesis. History was obtained from the patient at bedside in the emergency room who states that for the past 1 week he has been consuming excessive amount of alcohol since his mother . Reports more than 1 L of vodka daily. During this time he has also been having nausea and vomiting. This has mostly been clear or yellow except 1 episode last evening which was coffee-grounds for which his girlfriend brought him to the hospital. He does not report any abdominal pain, lightheadedness, chest pain, shortness of breath. Does report some retrosternal burning pain for the last 2 days. Vitals with tachycardia and hypertension due to alcohol withdrawal but otherwise fine. Labs with stable hemoglobin after fluid resuscitation. CONOR resolved. LFTs normal. His initial blood alcohol level was 317. 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 Also does not report any melena or hematochezia. 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 esophagus History of varicose veins Fatty liver Obstructive sleep apnea Essential and other specified forms of tremor Hypersomnolence Snoring Diabetes mellitus Alcoholic ketoacidosis Anxiety with depression Alcohol use disorder, severe, dependence Recurrent moderate major depressive disorder with anxiety Insomnia Alcohol withdrawal History of alcoholic hepatitis HTN (hypertension) Acute hepatitis Alcohol abuse with withdrawal Obesity (BMI 30-39.9) GERD without esophagitis Mixed hyperlipidemia Benign essential hypertension Family History Family History Father Advanced cirrhosis of liver Alcoholic cirrhosis Substance use disorder Mother Dementia Maternal Grandfather Substance use disorder Sister Substance use disorder Maternal Grandfather Colon cancer Prostate cancer Surgical History Surgical History History of right-sided carotid endarterectomy History of esophagogastroduodenoscopy (EGD) H/O colonoscopy Social History Social History Household Members: Significant Other Household Members Other:: Cousin Housing: House Are you a primary school childcare attendant to a significant other at home: No Do you presently have visiting nurse or other home services: No Unable to assess alcohol history related to: Unknown Alcohol intake: current Alcohol intake frequency: 3 or more drinks per day Alcohol type: hard liquor Patient Tobacco Use Status: Former Tobacco user Tobacco use type: Cigarette Years Smoked: quit 10 years ago Smoked in Last 30 Days: No e-Cigarette/Vaping Use: Never Used Second Hand Smoke Exposure: No Use of substances other than those prescribed or required for medical reasons: Yes Substance Use Type: Marijuana Substance Use Frequency: Occasionally Have you been hit, kicked, punched, or otherwise hurt by someone within the past year? 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 Meds Allergies Allergy/AdvReac Type Severity Reaction Status Date / Time No Known Allergies Allergy Verified 08/05/24 19:37 [No Known Allergies*] Active Medications: Current Medications Acetaminophen (Acetaminophen 325 Mg Tablet) 650 mg PO QID PRN PRN Reason: Headache/Pain, Scale 1-10 Last Admin: 08/06/24 00:28 Dose: 650 mg Acetaminophen (Acetaminophen 325 Mg Tablet) 650 mg PO Q6H PRN PRN Reason: Pain, Mild 1-3,fever,headache Bupropion HCl (Bupropion Hcl Xl 150 Mg Tab.Er.24h) 150 mg PO DAILY MAILE Last Admin: 08/06/24 08:14 Dose: 150 mg Calcium Carbonate (Calcium Carbonate 750 Mg Tab.Chew) 750 mg PO Q4H PRN PRN Reason: Heartburn Lactated Ringer's (Lr) 1,000 mls @ 100 mls/hr IVCONT .Q10H [facility] Labetalol HCl (Labetalol Hcl 100 Mg Tablet) 300 mg PO BID [facility] Last Admin: 08/06/24 08:14 Dose: 300 mg Magnesium Hydroxide (Milk Of Magnesia 30 Ml Oral.Susp) 30 ml PO DAILY PRN PRN Reason: Constipation Melatonin (Melatonin 3 Mg Tablet) 6 mg PO BEDTIME PRN PRN Reason: Insomnia Metformin HCl (Metformin Hcl 1,000 Mg Tablet) 1,000 mg PO BIDWM [facility] Last Admin: 08/06/24 08:14 Dose: 1,000 mg Multivitamins/Vitamin C (Multivitamin Tablet) 1 tab PO DAILY [facility] Last Admin: 08/06/24 08:14 Dose: 1 tab Pharmacy Consult (Consult Rx Etoh Phenob Im/Po) 1 each MISCELLANE ONCE PRN; Protocol PRN Reason: Consult order Phenobarbital (Phenobarbital 15 Mg Tablet) 45 mg PO BID [facility]; Protocol Stop: 08/08/24 09:01 Phenobarbital (Phenobarbital 30 Mg Tablet) 30 mg PO BID [facility]; Protocol Stop: 08/10/24 09:01 Phenobarbital (Phenobarbital 30 Mg Tablet) 30 mg PO DAILY [facility]; Protocol Stop: 08/12/24 09:01 Phenobarbital Sodium (Phenobarbital Sodium 130 Mg/Ml Vial Im Q3hx2) 238 mg IM Q3H [facility]; Protocol Stop: 08/06/24 14:01 Sodium Chloride (0.9 % Sodium Chloride Flush 3 Ml Syringe) 3 ml IVFLUSH QSHIFT [facility] Home Medications ?Medication ?Instructions ?Recorded ?Confirmed ?Last Taken ?Type quetiapine 100 mg tablet 200 - 300 mg PO BEDTIME PRN anxiety 03/08/23 08/05/24 11/13/23 History multivitamin 1 tab PO DAILY 02/28/24 08/05/24 06/11/24 History melatonin 3 mg tablet 3 - 9 mg PO BEDTIME PRN Sleep 04/20/24 08/05/24 Unknown History Nugenix 3 tab PO DAILY 06/11/24 08/05/24 06/11/24 History bupropion HCl 200 mg tablet,12 hr 200 mg PO DAILY 03/07/0308/05/24 06/11/24 History sustained-release labetalol 300 mg tablet 300 mg PO BID 06/11/24 08/05/24 06/11/24 History Physical Exam Vital Signs: Vital Signs: Last Vital Signs Temp 99.1 F 08/06/24 07:09 Pulse 85 08/06/24 08:14 Resp 16 08/06/24 07:09 BP 140/88 H 08/06/24 08:14 Pulse Ox 95 08/06/24 07:09 O2 Del Method Room Air 08/06/24 07:09 BMI result Body Mass Index 29.0 Middle-aged gentleman Clammy and sweaty Coarse tremors Abdomen soft, nontender, nondistended No would respiratory distress Nonpitting edema bilaterally Results Labs 08/06/24 07:50 08/06/24 07:50 Labs: Short CBC 08/05/24 08/06/24 Range/Units 19:51 07:50 WBC 12.3 H 5.7 (4.8-10.8) X10*3/uL Hgb 14.5 D 11.4 L D (14.0-18.0) g/dl Hct 39.5 L D 31.8 L (42.0-52.0) % Plt Count 235 D 150 L D (160-400) X10*3/uL BMP 08/05/24 08/06/24 08/06/24 19:51 00:53 07:50 Sodium 136 141 143 Potassium 3.4 3.6 3.6 Chloride 86 L 99 99 Carbon Dioxide 28 27 31 H BUN 18 H 14 13 Creatinine 1.21 0.87 0.98 Calcium 11.8 H D 9.8 D 9.5 Liver Function 08/05/24 08/06/24 Range/Units 19:51 07:50 Total Bilirubin 0.6 0.5 (0.0-1.0) mg/dL AST 37 27 (5-37) U/L ALT 24 18 (0-40) U/L Alkaline Phosphatase 65 49 (39-117) U/L Albumin 4.9 3.9 (3.5-5.0) g/dL Urine 08/05/24 Range/Units 22:58 Urine Color Yellow Urine Appearance Clear Urine pH 6.0 (5.0-9.0) Ur Specific [place] 1.010 (1.005-1.025) Urine Protein 30 (1+) H (Neg-Trace) mg/dL Urine Glucose (UA) 500 H (Negative) mg/dL Assessment and Plan (1) Coffee ground emesis: Status: Resolved (2) Alcohol withdrawal: Qualifiers: Complication of substance-induced condition: with unspecified complication Qualified Code(s): F10.939 - Alcohol use, unspecified with withdrawal, unspecified Status: Acute (3) Alcohol use disorder: Status: Acute Plan Based on history of clear emesis initially followed by 1 episode of coffee-ground emesis, likely has small Maddy-Fernandez tear versus esophagitis versus gastritis from alcohol use. Coffee-ground emesis was self-limiting, and has not had any further events since coming to the hospital. Initial H&H likely reflective of hemoconcentration, hemoglobin from today is at his previous baseline that is around 11. Plan: -okay for clear liquid diet today -agree with empiric PPI -CBC daily -hold off endoscopy if no further hematemesis/clinically significant drop in hemoglobin. -[facility] protocol -Consider addiction medicine consultation Thank you for allowing me to participate in the care. Please do not hesitate to reach out for any questions or concerns. Procedures Date of Service Date of Service: 08/06/24
[2024-08-06] MEDS: Lactated Ringers 1,000 ML 100 ML IVCONT ×2 (09:09→20:06)
--- NOTE | 2024-08-06 09:40 | PHA.MEDREC ---
Pharmacy Consult ? Medication Reconciliation Pharmacy has completed the medication reconciliation. Utilized claims to confirm med rec done by nursing.
--- NOTE | 2024-08-06 09:48 | P.HPHOSP_ITS ---
History of Present Illness Date of Service: 08/06/24 Chief Complaint: Alcohol withdrawal 58 y/o M patient; PMH alcohol use disorder, bipolar disorder, MDD, GERD, HLD, T2DM; presents from home reporting increased alcohol intake recently in the setting of his mother recently passing away. The patient does report an episode of coffee ground emesis prior to arrival. He otherwise denies: fever or chills, SOB, cough/congestion. The patient was previously seen in this emergency department on 04/16/2024 where he was informed that he might have esophageal varices and was recommended to follow up with GI out-patient as well as continue his pantoprazole. He had upper endoscopy and colonoscopy on 06/28/2024 without evidence of varices, he had Valles's esophagus. In the emergency room, noted to be actively withdrawing. Phenobarb protocol started and Librium given for breakthrough. He will be admitted for the same Review of Systems 2 Review of Systems: Denies chest pain Denies shortness of breath Denies nausea vomiting diarrhea Denies fever chills [facility] Medical History (Updated 08/06/24 @ 09:53 by Philip Mares DO) 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 esophagus History of varicose veins Fatty liver Obstructive sleep apnea Essential and other specified forms of tremor Hypersomnolence Snoring Diabetes mellitus Alcoholic ketoacidosis Anxiety with depression Alcohol use disorder, severe, dependence Recurrent moderate major depressive disorder with anxiety Insomnia Alcohol withdrawal History of alcoholic hepatitis HTN (hypertension) Acute hepatitis Alcohol abuse with withdrawal Obesity (BMI 30-39.9) GERD without esophagitis Mixed hyperlipidemia Benign essential hypertension Family History Father Advanced cirrhosis of liver Alcoholic cirrhosis Substance use disorder Mother Dementia Maternal Grandfather Substance use disorder Sister Substance use disorder Maternal Grandfather Colon cancer Prostate cancer Surgical History History of right-sided carotid endarterectomy History of esophagogastroduodenoscopy (EGD) H/O colonoscopy Social History Household Members: Significant Other Household Members Other:: Cousin Housing: House Are you a primary long term care pharmacist to a significant other at home: No Do you presently have visiting nurse or other home services: No Unable to assess alcohol history related to: Unknown Alcohol intake: current Alcohol intake frequency: 3 or more drinks per day Alcohol type: hard liquor Patient Tobacco Use Status: Former Tobacco user Tobacco use type: Cigarette Years Smoked: quit 10 years ago e-Cigarette/Vaping Use: Never Used Second Hand Smoke Exposure: No Substance Use Type: Marijuana Advance Directives Date on File: 10/23/21 service: No Current occupational status: 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 Meds Allergies Allergy/AdvReac Type Severity Reaction Status Date / Time No Known Allergies Allergy Verified 08/05/24 19:37 [No Known Allergies*] Active Medications: Current Medications Acetaminophen (Acetaminophen 325 Mg Tablet) 650 mg PO QID PRN PRN Reason: Headache/Pain, Scale 1-10 Last Admin: 08/06/24 00:28 Dose: 650 mg Acetaminophen (Acetaminophen 325 Mg Tablet) 650 mg PO Q6H PRN PRN Reason: Pain, Mild 1-3,fever,headache Bupropion HCl (Bupropion Hcl Xl 150 Mg Tab.Er.24h) 150 mg PO DAILY [facility] Last Admin: 08/06/24 08:14 Dose: 150 mg Calcium Carbonate (Calcium Carbonate 750 Mg Tab.Chew) 750 mg PO Q4H PRN PRN Reason: Heartburn Lactated Ringer's (Lr) 1,000 mls @ 100 mls/hr IVCONT .Q10H [facility] Last Admin: 08/06/24 09:09 Dose: 100 mls/hr Labetalol HCl (Labetalol Hcl 100 Mg Tablet) 300 mg PO BID [facility] Last Admin: 08/06/24 08:14 Dose: 300 mg Magnesium Hydroxide (Milk Of Magnesia 30 Ml Oral.Susp) 30 ml PO DAILY PRN PRN Reason: Constipation Melatonin (Melatonin 3 Mg Tablet) 6 mg PO BEDTIME PRN PRN Reason: Insomnia Metformin HCl (Metformin Hcl 1,000 Mg Tablet) 1,000 mg PO BIDWM [facility] Last Admin: 08/06/24 08:14 Dose: 1,000 mg Multivitamins/Vitamin C (Multivitamin Tablet) 1 tab PO DAILY [facility] Last Admin: 08/06/24 08:14 Dose: 1 tab Pantoprazole Sodium (Pantoprazole Sodium 40 Mg/10 Ml Vial) 40 mg IVPUSH BID@0630,1630 [facility] Pharmacy Consult (Consult Rx Etoh Phenob Im/Po) 1 each MISCELLANE ONCE PRN; Protocol PRN Reason: Consult order Phenobarbital (Phenobarbital 15 Mg Tablet) 45 mg PO BID [facility]; Protocol Stop: 08/08/24 09:01 Phenobarbital (Phenobarbital 30 Mg Tablet) 30 mg PO BID [facility]; Protocol Stop: 08/10/24 09:01 Phenobarbital (Phenobarbital 30 Mg Tablet) 30 mg PO DAILY [facility]; Protocol Stop: 08/12/24 09:01 Phenobarbital Sodium (Phenobarbital Sodium 130 Mg/Ml Vial Im Q3hx2) 238 mg IM Q3H [facility]; Protocol Stop: 08/06/24 14:01 Sodium Chloride (0.9 % Sodium Chloride Flush 3 Ml Syringe) 3 ml IVFLUSH QSHIFT [facility] Home Medications ?Medication ?Instructions ?Recorded ?Confirmed ?Last Taken ?Type quetiapine 100 mg tablet 200 - 300 mg PO BEDTIME PRN anxiety 03/08/23 08/05/24 11/13/23 History multivitamin 1 tab PO DAILY 02/28/24 08/05/24 06/11/24 History melatonin 3 mg tablet 3 - 9 mg PO BEDTIME PRN Sleep 04/20/24 08/05/24 Unknown History Nugenix 3 tab PO DAILY 06/11/24 08/05/24 06/11/24 History bupropion HCl 200 mg tablet,12 hr 200 mg PO DAILY 06/11/24 08/05/24 06/11/24 History sustained-release labetalol 300 mg tablet 300 mg PO BID 06/11/24 08/05/24 06/11/24 History Physical Exam 2 Vital Signs and Narrative: Vital Signs: Last Vital Signs Temp 98.3 F 08/06/24 09:10 Pulse 74 08/06/24 09:10 Resp 18 08/06/24 09:10 BP 127/84 08/06/24 09:10 Pulse Ox 98 08/06/24 09:10 O2 Del Method Room Air 08/06/24 09:10 BMI result Body Mass Index 29.0 Const: Other: Awake alert tremulous Resp: Other: Clear to auscultation bilaterally no rales rhonchi or wheezes Cardio: Other: No S4; positive S1-S2; no S3 murmurs rubs or gallops GI: Other: Soft nontender nondistended normoactive bowel sounds Extrem: Other: No edema bilaterally Results Labs 08/06/24 07:50 08/06/24 07:50 Labs: Laboratory Results - last 24 hr 08/05/24 08/05/24 08/05/24 19:51 22:08 22:58 MCV 83.7 MCH 30.7 MCHC 36.7 H RDW 12.7 Plt Count 235 D MPV 8.9 L Immature Gran % (Auto) 0.4 Neut % (Auto) 75.4 H Lymph % (Auto) 18.2 L [place] % (Auto) 5.3 Eos % (Auto) 0.4 Baso % (Auto) 0.3 Lymph # (Auto) 2.2 [place] # (Auto) 0.7 Eos # (Auto) 0.1 Baso # (Auto) 0.0 Abs Immat Gran (auto) 0.05 H Absolute Neuts (auto) 9.3 H Absolute Nucleated RBC 0.000 Nucleated RBC % (auto) 0.0 PT 11.4 INR 1.0 APTT 27.7 Anion Gap 25 H Estim Creat Clear Calc 70.6 Estimated GFR > 60 POC Glucose 215 H Random Glucose 340 H Calcium 11.8 H D Total Bilirubin 0.6 AST 37 ALT 24 Alkaline Phosphatase 65 Total Protein 7.8 Albumin 4.9 Urine Color Yellow Urine Appearance Clear Urine pH 6.0 Ur Specific [place] 1.010 Urine Protein 30 (1+) H Urine Glucose (UA) 500 H Urine Ketones 15 Urine Blood Negative Urine Nitrite Negative Ur Leukocyte Esterase Negative Urine RBC 0-2 Urine WBC 0-5 Ur Squamous Epith Cells 0-2 Urine Bacteria None Seen Hyaline Casts 0-2 Urine Opiates Screen Not Detected Ur Buprenorphine Scrn Not Detected Ur Oxycodone Screen Not Detected Urine Methadone Screen Not Detected Urine Fentanyl Screen Not Detected Ur Barbiturates Screen Not Detected Ur Phencyclidine Scrn Not Detected Ur Amphetamines Screen Not Detected U Benzodiazepines Scrn Not Detected Urine Cocaine Screen Not Detected U Marijuana (THC) Screen POSITIVE H Ethyl Alcohol 317 H* Blood Type O Positive Antibody Screen NEGATIVE 08/06/24 08/06/24 08/06/24 00:14 00:53 07:10 MCV MCH MCHC RDW Plt Count MPV Immature Gran % (Auto) Neut % (Auto) Lymph % (Auto) [place] % (Auto) Eos % (Auto) Baso % (Auto) Lymph # (Auto) [place] # (Auto) Eos # (Auto) Baso # (Auto) Abs Immat Gran (auto) Absolute Neuts (auto) Absolute Nucleated RBC Nucleated RBC % (auto) PT INR APTT Anion Gap 19 Estim Creat Clear Calc 98.1 Estimated GFR > 60 POC Glucose 164 H 166 H Random Glucose 175 H Calcium 9.8 D Total Bilirubin AST ALT Alkaline Phosphatase Total Protein Albumin Urine Color Urine Appearance Urine pH Ur Specific [place] Urine Protein Urine Glucose (UA) Urine Ketones Urine Blood Urine Nitrite Ur Leukocyte Esterase Urine RBC Urine WBC Ur Squamous Epith Cells Urine Bacteria Hyaline Casts Urine Opiates Screen Ur Buprenorphine Scrn Ur Oxycodone Screen Urine Methadone Screen Urine Fentanyl Screen Ur Barbiturates Screen Ur Phencyclidine Scrn Ur Amphetamines Screen U Benzodiazepines Scrn Urine Cocaine Screen U Marijuana (THC) Screen Ethyl Alcohol Blood Type Antibody Screen 08/06/24 07:50 MCV 86.2 MCH 30.9 MCHC 35.8 RDW 13.0 Plt Count 150 L D MPV 9.4 Immature Gran % (Auto) 0.2 Neut % (Auto) 62.1 Lymph % (Auto) 28.1 [place] % (Auto) 7.3 Eos % (Auto) 1.8 Baso % (Auto) 0.5 Lymph # (Auto) 1.6 [place] # (Auto) 0.4 Eos # (Auto) 0.1 Baso # (Auto) 0.0 Abs Immat Gran (auto) 0.01 Absolute Neuts (auto) 3.5 Absolute Nucleated RBC 0.000 Nucleated RBC % (auto) 0.0 PT INR APTT Anion Gap 17 Estim Creat Clear Calc 87.1 Estimated GFR > 60 POC Glucose Random Glucose 171 H Calcium 9.5 Total Bilirubin 0.5 AST 27 ALT 18 Alkaline Phosphatase 49 Total Protein 6.1 L Albumin 3.9 Urine Color Urine Appearance Urine pH Ur Specific [place] Urine Protein Urine Glucose (UA) Urine Ketones Urine Blood Urine Nitrite Ur Leukocyte Esterase Urine RBC Urine WBC Ur Squamous Epith Cells Urine Bacteria Hyaline Casts Urine Opiates Screen Ur Buprenorphine Scrn Ur Oxycodone Screen Urine Methadone Screen Urine Fentanyl Screen Ur Barbiturates Screen Ur Phencyclidine Scrn Ur Amphetamines Screen U Benzodiazepines Scrn Urine Cocaine Screen U Marijuana (THC) Screen Ethyl Alcohol Blood Type Antibody Screen Assessment and Plan (1) Alcohol use disorder: Status: Acute (2) Alcohol withdrawal: Qualifiers: Complication of substance-induced condition: with unspecified complication Qualified Code(s): F10.939 - Alcohol use, unspecified with withdrawal, unspecified Status: Acute (3) Acute alcoholic gastritis: Qualifiers: Gastritis bleeding: without bleeding Qualified Code(s): K29.20 - Alcoholic gastritis without bleeding Status: Acute (4) HTN (hypertension): Qualifiers: Hypertension type: primary hypertension Qualified Code(s): I10 - Essential (primary) hypertension Status: Acute Plan 58-year-old male with a history of alcohol use disorder bipolar disorder GERD type 2 diabetes presents from home with increased alcohol intake secondary to the passing of his mother. He states he has been drinking at least a Liter of vodka a day for the past couple of weeks. In the emergency room noted to have multiple episodes of coffee-ground emesis. He will be admitted for workup and treatment of same 1. Alcohol use disorder with withdrawal -phenobarb protocol -had jumped benzodiazepines if appropriate -seizure precautions -care team consult 2. Acute alcoholic gastritis -appreciate GI input; clear liquid diet -Protonix IV q.12 hours -no need for endoscopy at this point if no further vomiting and hemoglobin stable. -follow clinically 3. Hypertension -acceptable control on current therapies -adjust as indicated Patient will require at least 2 midnights going forward of inpatient stay to treat alcohol withdrawal with phenobarb protocol and adjunct benzos as appropriate Quality Stroke Does the patient have a stroke diagnosis?: No VTE Prior VTE?: No VTE Risk Level:: Medical - moderate - high VTE Device Contraindication: N/A - Device Ordered VTE Drug Contraindication: Treatment Not Indicated
[2024-08-06] MEDS: ondansetron HCL 4 MG/2 ML VIAL IVPUSH ×2 (09:50→20:04)
[2024-08-06] MEDS: PHENobarbitaL sodium 130 MG/ML VIAL IM Q3Hx2 238 MG IM ×2 (11:14→14:42)
--- NOTE | 2024-08-06 14:44 | PC.NURSE ---
increased llq pain followinfg sip of juice.
[2024-08-06] MEDS: Pantoprazole Sodium 40 MG/10 ML VIAL IVPUSH (16:27)
[2024-08-06 18:56] LABS: Glucose, Whole Blood 187 mg/dL (60-115)
[2024-08-06] MEDS: QUEtiapine Fumarate 200 MG TABLET PO (20:04)
[2024-08-06] MEDS: PHENobarbitaL 15 MG TABLET 45 MG PO (20:05)
[2024-08-07 03:15] VITALS: BP 130/81; PULSE 66; RESP 18; TEMP 36.4; O2SAT 98
[2024-08-07] MEDS: Pantoprazole Sodium 40 MG/10 ML VIAL IVPUSH (05:26)
[2024-08-07] MEDS: Lactated Ringers 1,000 ML 100 ML IVCONT (05:26)
[2024-08-07 06:59] LABS: MANUAL DIFF FLAG NO
[2024-08-07 07:07] LABS: Basophils Percent Auto 0.6 % (0-2); Eosinophils Absolute Auto 0.2 X10*3/uL (0.0-0.4); Hematocrit 29.1 % (42.0-52.0); Hemoglobin 10.1 g/dl (14.0-18.0); Imm Gran Abs Auto 0.01 X10*3/uL (0.00-0.03); Imm Gran Pct Auto 0.3 % (0.0-0.4); Lymphocytes Absolute Auto 1.3 X10*3/uL (1.2-4.9); Lymphocytes Percent Auto 40.7 % (20-40); Mean Corpuscular HGB Conc 34.7 g/dl (31.0-36.0); Mean Corpuscular Hemoglobin 30.6 pg (27.0-33.0); Mean Corpuscular Volume 88.2 fL (80.0-98.0); Mean Platelet Volume 10.1 fL (9.4-12.4); Monocytes Absolute Auto 0.3 X10*3/uL (0.1-1.2); Monocytes Percent Auto 8.5 % (2-11); Neutrophils Absolute Auto 1.4 x10*3/uL (2.0-8.3); Neutrophils Percent Auto 44.9 % (45-73); Platelet Count 102 X10*3/uL (160-400); Red Cell Distribution Width 13.2 % (11.0-16.0); White Blood Count 3.2 X10*3/uL (4.8-10.8)
[2024-08-07 07:16] VITALS: BP 129/82; PULSE 77; RESP 16; TEMP 36.3; O2SAT 99
[2024-08-07 07:31] LABS: Alanine Aminotransferase 18 U/L (0-40); Albumin Level 3.5 g/dL (3.5-5.0); Alkaline Phosphatase 48 U/L (39-117); Anion Gap 13 (12-20); Aspartate Amino Transferase 29 U/L (5-37); Bilirubin Total 0.5 mg/dL (0.0-1.0); Blood Urea Nitrogen 10 mg/dL (9-16); Carbon Dioxide 32 mmol/L (22-29); Chloride 102 mmol/L (96-108); Creatinine Clr Calc Pharmacy 86.2; Estimated Glomerular Filt Rate > 60; Glucose Random 140 mg/dL (60-115); Potassium 3.2 mmol/L (3.3-5.1); Sodium 144 mmol/L (135-145); Total Protein 5.5 g/dL (6.5-8.0)
[2024-08-07 07:45] LABS: Calcium 8.8 mg/dL (8.4-10.2)
[2024-08-07] MEDS: PHENobarbitaL 15 MG TABLET 45 MG PO (08:20)
[2024-08-07] MEDS: metFORMIN HCl 1,000 MG TABLET 1000 MG PO (08:21)
[2024-08-07] MEDS: buPROPion HCl XL 150 MG TAB.ER.24H PO (08:21)
[2024-08-07] MEDS: Multivitamin TABLET 1 TAB PO (08:21)
[2024-08-07] MEDS: Labetalol HCL 100 MG TABLET 300 MG PO (08:21)
--- NOTE | 2024-08-07 08:58 | MHC.CM.PN ---
CM met with Patient at bedside. 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 Home self care vs Recovery Team intervention is the tentative plan and CM has initiated and will follow for dc planning. PCP is Dr. Miky Avitia, Son/Jonathan is HCP, and Girlfriend will transport to home at time of dc.
[2024-08-07 11:06] VITALS: BP 126/81; PULSE 78; RESP 17; TEMP 36.6; O2SAT 98
--- NOTE | 2024-08-07 13:10 | PM.DS ---
DS: Providers Provider Date of Service: 08/07/24 Date of admission: 08/06/24 09:35 Date of discharge: 08/07/24 Primary care physician: Unknown Physician Consults: 08/05/24 21:42 ED CARE Team Crisis Consult Stat Comment: Reason for consultation: alcohol abuse 08/06/24 08:26 Consult to Gastroenterology Routine Consulting Provider: Yudi Trinh Reason for consultation: UGIB Has provider been notified: No 08/07/24 08:13 Addiction Medicine Provider Routine Consulting Provider: Addiction Covering Reason for consultation: Positive Audit C Has provider been notified: No 08/07/24 09:20 Inpt - Recovery Team Routine Comment: Reason for consultation: SUZE eval +AUDIT c DS: Diagnosis Discharge Diagnosis (1) Coffee ground emesis: Status: Resolved (2) Alcohol withdrawal: Status: Acute (3) Alcohol use disorder: Status: Acute DS: Summary Hospital Course Hospital Course: 58 y/o M patient; PMH alcohol use disorder, bipolar disorder, MDD, GERD, HLD, T2DM; presents from home reporting increased alcohol intake recently in the setting of his mother recently passing away. The patient does report an episode of coffee ground emesis prior to arrival. He otherwise denies: fever or chills, SOB, cough/congestion. The patient was previously seen in this emergency department on 04/16/2024 where he was informed that he might have esophageal varices and was recommended to follow up with GI out-patient as well as continue his pantoprazole. He had upper endoscopy and colonoscopy on 06/28/2024 without evidence of varices, he had Valles's esophagus. In the emergency room, noted to be actively withdrawing. Phenobarb protocol started and Librium given for breakthrough. He will be admitted for the same Hospital Course Patient admitted to telemetry and maintained on the CIWA protocol. Initially scored 8-10 but over the last 24 hours has been 1-2. No seizures were noted. He was seen in consultation by GI who felt there was no need at this time for re scope. If further vomiting in hospital would reconsider. Patient's hemoglobin remained stable and he had no further coffee-ground emesis. Addiction Medicine spoke with patient and he would like to start naltrexone. Script was sent to the pharmacy can follow up with PCP as scheduled and PCP can prescribe thereafter. Time Attestation Discharge Coordination Time (in mins): 35 Quality: Safe Use of Opioids Does Pt have an Active Cancer Diagnosis on the Problem List?: No Quality: Stroke Does the patient have a stroke diagnosis?: No Physical Exam Vital Signs: Vital Signs: Last Vital Signs Temp 97.9 F 08/07/24 11:06 Pulse 78 08/07/24 11:06 Resp 17 08/07/24 11:06 BP 126/81 08/07/24 11:06 Pulse Ox 98 08/07/24 11:06 O2 Del Method Room Air 08/07/24 11:06 BMI result Body Mass Index 29.0 Const: Other: Awake alert tremulous Resp: Other: Clear to auscultation bilaterally no rales rhonchi or wheezes Cardio: Other: No S4; positive S1-S2; no S3 murmurs rubs or gallops GI: Other: Soft nontender nondistended normoactive bowel sounds Extrem: Other: No edema bilaterally DS: Data Data Completed and Pending Completed studies during hospitalization [Text1]: Procedures Detoxification Services for Substance Abuse Treatment (11/14/23) Drainage of Right Axilla, Open Approach (10/22/21) Extirpation of Matter from Right Common Carotid Artery, Open Approach (06/11/24) Supplement Right Internal Carotid Artery with Synthetic Substitute, Open Approach (06/11/24) Labs on day of discharge: Laboratory Results - last 24 hr 08/06/24 08/07/24 16:26 06:25 WBC 3.2 L RBC 3.30 L Hgb 10.1 L Hct 29.1 L MCV 88.2 MCH 30.6 MCHC 34.7 RDW 13.2 Plt Count 102 L D MPV 10.1 Immature Gran % (Auto) 0.3 Neut % (Auto) 44.9 L Lymph % (Auto) 40.7 H [place] % (Auto) 8.5 Eos % (Auto) 5.0 H Baso % (Auto) 0.6 Lymph # (Auto) 1.3 [place] # (Auto) 0.3 Eos # (Auto) 0.2 Baso # (Auto) 0.0 Abs Immat Gran (auto) 0.01 Absolute Neuts (auto) 1.4 L Absolute Nucleated RBC 0.000 Nucleated RBC % (auto) 0.0 Sodium 144 Potassium 3.2 L Chloride 102 Carbon Dioxide 32 H Anion Gap 13 BUN 10 Creatinine 0.99 Estim Creat Clear Calc 86.2 Estimated GFR > 60 POC Glucose 187 H Random Glucose 140 H Calcium 8.8 D Total Bilirubin 0.5 AST 29 ALT 18 Alkaline Phosphatase 48 Total Protein 5.5 L Albumin 3.5 Discharge Plan Discharge Anticipated Discharge Date/Time: 08/07/24 13:02 Patient Disposition: Home, Self-Care Discharge Diagnosis: Acute alcohol withdrawal Referrals: Physician,Unknown J [Primary Care Provider] - 1 Week Discharge Medications: New naltrexone 50 mg tablet 50 mg PO DAILY Qty: 30 0RF Continued multivitamin Tablet 1 tab PO DAILY metformin 1,000 mg tablet 1,000 mg PO BID 90 Days Qty: 180 1RF pantoprazole 40 mg tablet,delayed release (DR/EC) 40 mg PO DAILY@0630 Qty: 90 1RF rosuvastatin 40 mg tablet 40 mg PO BEDTIME Qty: 90 2RF labetalol 300 mg tablet 300 mg PO BID bupropion HCl 200 mg tablet sustained-release 12 hr 200 mg PO DAILY Nugenix 3 tab PO DAILY quetiapine 100 mg tablet 200 - 300 mg PO BEDTIME PRN (Reason: anxiety) melatonin 3 mg tablet 3 - 9 mg PO BEDTIME PRN (Reason: Sleep) Diet: Advance to usual diet Activity on Discharge: As tolerated Stand Alone Forms: Patient Portal Discharge page Print Language: Nepalese Care Plan Goals: Continue all current medicines as taken prior to hospitalization Health Concerns: Naltrexone has been added to your regimen follow up with your PCP for refills Plan of Treatment: Follow up with your doctor as scheduled tomorrow at a.m. Assessment: See discharge summary
[2024-08-07 15:25] VITALS: BP 142/78; PULSE 84; RESP 18; TEMP 36.2; O2SAT 98
== END 2024-08-07 17:00 | disposition home or self-care (01) | DRG 775 ==
LOC: HO.ED 08-06 09:17 → HO.EDOVER 08-06 09:36 → HO.IMC 08-06 17:46
PROVIDERS: Emergency Medicine; Physician Assistant; Admitting Provider Hospitalist; Emergency Provider Emergency Medicine Emergency Medical Services; PCP Nurse Practitioner Family; Visit Provider Hospitalist
DX: F10.239 Alcohol dependence with withdrawal, unspecified (principal); F10.229 Alcohol dependence with intoxication, unspecified; E11.65 Type 2 diabetes mellitus with hyperglycemia; K29.20 Alcoholic gastritis without bleeding; I10 Essential (primary) hypertension; G47.33 Obstructive sleep apnea (adult) (pediatric); Z79.84 Long term (current) use of oral hypoglycemic drugs; Y90.8 Blood alcohol level of 240 mg/100 ml or more; Z87.891 Personal history of nicotine dependence; Z79.899 Other long term (current) drug therapy
CPT/HCPCS: 36415; 71045; 80048; 80053; 80307; 81001; 82947; 85025; 85610; 85730; 86850; 86900; 86901; 93005; 99285; J2405; J2470; J2560; J3411; J7120; S9485

== ENCOUNTER → 2024-08-05 19:38 | Outpatient (BNV) | payer OTHER, SELFPAY | PROVIDERS: Admitting Provider Hospitalist; Emergency Provider Emergency Medicine Emergency Medical Services; Visit Provider Internal Medicine Cardiovascular Disease | DX: R00.0 Tachycardia, unspecified (principal) | CPT/HCPCS: 93010 ==

== ENCOUNTER → 2024-08-05 20:58 | Outpatient (BNV) | payer OTHER, SELFPAY | PROVIDERS: Emergency Provider Emergency Medicine; Visit Provider Radiology Diagnostic Radiology | DX: R06.02 Shortness of breath (principal) | CPT/HCPCS: 71045 ==

== ENCOUNTER → 2024-08-06 09:35 | Outpatient (BNV) | payer OTHER, SELFPAY | PROVIDERS: Admitting Provider Hospitalist; Emergency Provider Emergency Medicine Emergency Medical Services; Visit Provider Hospitalist | DX: K29.20 Alcoholic gastritis without bleeding (principal); I10 Essential (primary) hypertension; F10.939 Alcohol use, unspecified with withdrawal, unspecified | CPT/HCPCS: 99223 ==

== ENCOUNTER → 2024-08-06 09:35 | Outpatient (BNV) | payer OTHER, SELFPAY | PROVIDERS: Admitting Provider Hospitalist; Emergency Provider Emergency Medicine Emergency Medical Services; Visit Provider Internal Medicine | DX: K92.0 Hematemesis (principal); F10.939 Alcohol use, unspecified with withdrawal, unspecified; F10.90 Alcohol use, unspecified, uncomplicated | CPT/HCPCS: 99222 ==

== ENCOUNTER 2024-08-08 09:54 | Outpatient (AMB) | payer OTHER, SELFPAY ==
[2024-08-08 10:02] VITALS: BP 122/80; PULSE 73; O2SAT 99; BMI 29.3
--- NOTE | 2024-08-08 10:02 | A.OFFPC_ITS ---
Vital Signs 08/08/24 10:02 Height 5 ft 7 in Weight 187 lb BMI 29.3 BP 122/80 Blood Pressure Location Lt brachial Position Sitting Pulse 73 Pulse Source Pulse Oximeter Pulse Oximetry (%) 99 Oxygen Delivery Method Room Air Intake Visit Reasons: 4MoFollowUp Allergies No Known Allergies [No Known Allergies*] Allergy (Verified 08/08/24 10:44) Medication List - Last Reconciled 08/08/24 by Miky Avitia [facility] bupropion HCl SR 200 mg PO DAILY 60 days labetalol 300 mg PO BID melatonin 3 - 9 mg PO BEDTIME PRN metformin 1,000 mg PO BID 90 days multivitamin 1 tab PO DAILY naltrexone 50 mg PO DAILY [Nugenix 3 tabs PO DAILY] pantoprazole 40 mg PO DAILY@0630 quetiapine 200 - 300 mg (2 - 3 x 100 mg) PO BEDTIME PRN 60 days rosuvastatin 40 mg PO BEDTIME Tobacco use date assessed: 08/08/24 Dental Screening Dental Screen Date: 08/08/24 Did you have a dental visit in the last 12 months?: Yes Did you have a dental problem in the last 6 months where you did not have access to dental care?: No Was dental information given to patient?: Patient has dentist HPI 4MoFollowUp HPI Details Chief Complaint The patient presents for follow-up after hospital discharge. History of Present Illness The patient is a 59-year-old male presenting for hospital discharge follow-up. He has a history of alcohol use disorder, which escalated following his mother?s passing, leading to hospitalization due to gastrointestinal bleeding. Initial emergency department visits revealed possible esophageal varices, though subsequent procedures ruled them out but identified Valles's Esophagus. The patient underwent a detoxification protocol in the hospital and denies any alcohol use since discharge, noting improvement with Naltrexone. He also has Type 2 Diabetes Mellitus, with well-controlled glucose levels (A1c of 6.3%), and denies any signs of diabetic neuropathy. He was noted for anemia and low potassium levels recently and has expressed a commitment to avoiding alcohol. his physical examination was notable for onychomycosis affecting the hallux nails. Overall, he reports feeling better and committed to his treatment for alcohol use disorder. Social History - Alcohol use disorder following the pas sing of his mother, currently reports abstinence. - History of recent hospitalization for alcohol-related issues. - Presence of family stressor with the l oss of a parent. Health Maintenance - Ongoing management of Type 2 Diabetes Mellitus, with recent A1c at 6.3%. - Monitoring of potassium levels due to a finding of hypokalemia. - Regular follow-up and management with Addiction Medicine for Alcohol Use Disorder. Review of Systems - Respiratory: Denies shortness of breat h, lungs noted clear. - Endocrine: Denies polyuria, polydipsia . - Neurological: Denies neuropathy. - Dermatological: Reports onychomycosis, particularly affecting toenails. - Musculoskeletal: No specific issues re ported. Physical Exam General: Cooperative, healthy appearing, comfortable, no acute distress and well developed Orientation: Patient oriented x3 Limitations: No limitations Head: Normal to inspection Ears: Hearing grossly normal bilaterally Nose: Normal external nose present Face and sinus: Normal facial exam Eyes: Appearance normal, both eyes and all related structures Neck: Normal visual inspection and Yes full ROM Respiratory: Normal respiratory effort and able to speak in complete sentences. Clear to auscultation bilaterally Cardiovascular: Regular rate and rhythm. Normal S1 and S2 GI: Normal to inspection. Soft to palpation and nontender Skin: No rashes or lesions noted, slight pallor complexion Neuro: Patient oriented x3 Extremities: Normal to inspection, onychomycosis noted, especially on big toes, feet intact bilaterally, could feel with monofilament Results - Labs: Hemoglobin stable, potassium not ed at 3.2 mEq/L. - Procedures: Upper Endoscopy and Colono scopy on 06/28 showed Valles's Esophagus, no varices identified. Plan I plan to continue management of the patient?s alcohol use disorder with Naltrexone and provide support through regular follow-ups with Addiction Medicine. I will monitor the previously low potassium levels and manage as necessary. For his diabetes, given his current stable A1c, I recommend maintaining the existing treatment regimen. Continue treatment for onychomycosis to prevent complications. Ensuring he abstains from further alcohol use is critical, supported by ongoing addiction therapy. For any further episodes of gastrointestinal bleeding, immediate reassessment will be required. Discussion Notes I discussed with the patient the importance of abstaining from alcohol and how Naltrexone will aid in this process. We reviewed his recent hospital stay, addressing potential triggers and establishing support systems to prevent relapse. Management of his diabetes was confirmed to be satisfactory, with current A1c levels being acceptable. We discussed potential future i nvestigations should symptoms related to gastrointestinal bleeding recur. I emphasized the importance of monitoring his electrolytes, specifically potassium, given the recent low levels. I also reviewed maintaining foot health, considering the noted onychomycosis. Patient Instructions - Continue with Naltrexone as prescribed . - Observe for any reoccurrence of GI ble eding symptoms and seek immediate care if they occur. - Follow up regularly with Addiction Med icine and diabetes care providers. - Monitor blood sugar levels and maintai n diabetes management plan. - Keep monitoring and manage potassium l evels as directed. - Adhere to dietary recommendations for managing diabetes. - Avoid alcohol and seek support if stru ggling with cravings. [facility] Medical History 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 esophagus History of varicose veins Fatty liver Obstructive sleep apnea Essential and other specified forms of tremor Hypersomnolence Snoring Diabetes mellitus Alcoholic ketoacidosis Anxiety with depression Alcohol use disorder, severe, dependence Recurrent moderate major depressive disorder with anxiety Insomnia Alcohol withdrawal History of alcoholic hepatitis HTN (hypertension) Acute hepatitis Alcohol abuse with withdrawal Obesity (BMI 30-39.9) GERD without esophagitis Mixed hyperlipidemia Benign essential hypertension Surgical History History of right-sided carotid endarterectomy History of esophagogastroduodenoscopy (EGD) H/O colonoscopy Family History Father Advanced cirrhosis of liver Alcoholic cirrhosis Substance use disorder Mother Dementia Maternal Grandfather Substance use disorder Sister Substance use disorder Maternal Grandfather Colon cancer Prostate cancer Social History Household Members: Significant Other Household Members Other:: Cousin Housing: House Are you a primary healthcare customer service to a significant other at home: No Do you presently have visiting nurse or other home services: No Unable to assess alcohol history related to: Unknown Alcohol intake: current Alcohol intake frequency: 3 or more drinks per day Alcohol type: hard liquor Comment: seizure pads Patient Tobacco Use Status: Former Tobacco user Tobacco use type: Cigarette Years Smoked: quit 10 years ago e-Cigarette/Vaping Use: Never Used Second Hand Smoke Exposure: No Substance Use Type: Marijuana Advance Directives Date on File: 10/23/21 service: No Current occupational status: 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 1. Little interest or pleasure in doing things: several days 2. Feeling down, depressed, or hopeless: several days 3. Trouble falling or staying asleep, or sleeping too much: nearly every day 4. Feeling tired or having little energy: nearly every day 5. Poor appetite or overeating: not at all 6. Feeling bad about yourself - or that you are a failure or have let yourself or your family down: nearly every day 7. Trouble concentrating on things, such as reading the newspaper or watching television: not at all 8. Moving or speaking so slowly that other people could have noticed. Or the opposite - being so fidgety or restless that you have been moving around a lot more than usual: not at all 9. Thoughts that you would be better off or of hurting yourself in some way: not at all Total score: 11 Depression Screening Interpretation: Positive Depression Screening Done: Yes 71874 - PHQ-9 Billing: Yes Source: Developed by Drs. Colby Mariano, Cindy Baez, Jose Luis Gonzalez and colleagues, with an educational vinicio from [employer]. Thrive Questionnaire Date Thrive assessed: 08/08/24 AUDIT C Alcohol Use Questionnaire (AUDIT-C) 1. How often do you have a drink containing alcohol?: 4 or more times a week 2. How many drinks containing alcohol do you have on a typical day when you are drinking?: 10 or more 3. How often do you have six or more drinks on one occasion?: Monthly Total Score: 10 Score Reviewed/Action Taken: Yes KAYLA-7 AMB Questionnaire KAYLA-7 Date KAYLA - 7 assessed: 08/08/24 Feeling nervous, anxious, or on edge: 2 = More than half the days Not being able to stop or control worryin = Several days Worrying too much about different things: 1 = Several days Trouble relaxin = Not at all Being so restless that it is hard to sit still: 0 = Not at all Becoming easily annoyed or irritable: 3 = Nearly every day Feeling afraid as if something awful might happen: 0 = Not at all Total KAYLA-7 score (0-4 normal; 5-9 mild; 10-14 moderate; 15-21 severe): 7 Source: Developed by Drs. Colby Mariano, Cindy Baez, Jose Luis Gonzalez and colleagues, with an educational vinicio from [employer]. KAYLA-7 Assessment Billing KAYLA-7 Assessment Tool: KAYLA-7 Assessment 98840 Physical exam (Primary Care) Vital Signs: Last Vital Signs Pulse 73 08/08/24 10:02 BP 122/80 08/08/24 10:02 Pulse Ox 99 08/08/24 10:02 Oxygen Delivery Method Room Air 08/08/24 10:02 BMI result Body Mass Index 29.3 Tobacco/Smoking Status: Tobacco use Status Tobacco use date assessed 08/08/24 08/08/24 10:08 Patient Tobacco Use Status Former Tobacco user 08/08/24 10:08 Tobacco use type Cigarette 08/08/24 10:08 e-Cigarette/Vaping Use Never Used 08/08/24 10:08 PHQ-9: PHQ-9 Score PHQ-9: Total score 11 08/08/24 10:15 Depression Screening Interpretation: Positive Thrive Assessment: Date of Thrive Assessment Date Thrive assessed 08/08/24 08/08/24 10:08 Results AMB Hemoglobin A1c AMB Hemoglobin A1c 6.3 % Last Edit by Phu Atwood CMA on 08/08/24 10: 23 Results Reviewed Results Reviewed: Laboratory Last Values Hgb A1c (Clinic) 6.3 % (4.0-6.0) H 08/08/24 10:22 Coding Level of Care Code Est Pt Level 4 (49465) Diagnoses Alcohol use disorder F10.90 Diabetes mellitus E11.9 Hypokalemia E87.6 Screening PSA (prostate specific antigen) Z12.5 Additional Codes KAYLA-7 Assessment Billing - KAYLA-7 Assessment Tool: KAYLA-7 Assessment 78385 ([id number]) PHQ-9 - 77548 - PHQ-9 Billing: Yes ([id number]) Assessment & Plan Assessment & Plan (1) Alcohol use disorder: Code(s): F10.90 - Alcohol use, unspecified, uncomplicated Category: Medical (2) Diabetes mellitus: Code(s): E11.9 - Type 2 diabetes mellitus without complications Category: Medical (3) Hypokalemia: Code(s): E87.6 - Hypokalemia Category: Medical (4) Screening PSA (prostate specific antigen): Code(s): Z12.5 - Encounter for screening for malignant neoplasm of prostate Category: Medical Plan . Orders: Orders Complete Blood Count Auto Diff Today E11.9 - Type 2 diabetes mellitus without complications, F10.90 - Alcohol use, unspecified, uncomplicated Comprehensive [place]. Panel Fast Today E11.9 - Type 2 diabetes mellitus without complications, F10.90 - Alcohol use, unspecified, uncomplicated Comprehensive Met. Panel Today E87.6 - Hypokalemia Microalbumin, Random (w Creat) Today E11.9 - Type 2 diabetes mellitus without complications TSH reflex Free T4 Today E11.9 - Type 2 diabetes mellitus without complications, F10.90 - Alcohol use, unspecified, uncomplicated UA CC w/rflx Micro + Cult Today E11.9 - Type 2 diabetes mellitus without complications, F10.90 - Alcohol use, unspecified, uncomplicated Lipid Panel Today E11.9 - Type 2 diabetes mellitus without complications, F10.90 - Alcohol use, unspecified, uncomplicated AMB Hemoglobin A1c Today Z13.9 - Encounter for screening, unspecified Prostate Specific Antigen Scr Today Z12.5 - Encounter for screening for malignant neoplasm of prostate Medications: Changed From bupropion HCl SR 200 mg PO DAILY To bupropion HCl SR 200 mg PO DAILY 60 tabs 0RF 60 days From quetiapine 200 - 300 mg PO BEDTIME PRN anxiety To quetiapine 200 - 300 mg (2 - 3 x 100 mg) PO BEDTIME PRN 120 tabs 0RF anxiety 60 days
--- OUTSIDE RECORDS SUMMARY | 2024-08-08 10:51 | XMS_ITS | Encounter Summary ---
Author Organization [facility] Address [address] [place] [address] Care Team Providers Care Food Safety Manager Name Role Phone Fritz Shelley MD Primary Care Provider +1- [phone] Reason for Visit * Reason Comments Appointment Encounter Details Date Type Department Care Team ([facility] st Contact Info) Description 10/22/2020 Telephone [facility] [address] [place] [phone] Nicholas Fernandez MD [address] [address] Appointment Social History Tobacco Use Types Packs/Day [...] on filedocumented in this encounter Care Teams Food Safety Manager Relationship Specialty Start Date End Date Fritz Shelley MD [address] [place] [address] [address] PCP - General Internal Medicine 12/11/19 documented as of this encounter
--- OUTSIDE RECORDS SUMMARY | 2024-08-08 10:51 | XMS_ITS | Encounter Summary ---
Author Organization [facility] Address [address] [place] [address] Care Team Providers Care Hob Grinder Name Role Phone Fritz Shelley MD Primary Care Provider +1- [phone] Reason for Visit * Reason Comments Prior Authorization xiaflex Encounter Details Date Type Department Care Team (Late st Contact Info) Description 02/19/2020 Telephone [facility] Urologic Surgery [place] 85 [facility] [address] [place] [phone] Deborah Figueroa MD [address] [facility] [address] [place] [address] Prior Authorization (xiaflex) Social History [...] on filedocumented in this encounter Care Teams Hob Grinder Relationship Specialty Start Date End Date Fritz Shelley MD [address] [place] [address] [place] [address] PCP - General Internal Medicine 12/11/19 documented as of this encounter
--- OUTSIDE RECORDS SUMMARY | 2024-08-08 10:51 | XMS_ITS | Clinical Summary ---
Author Organization [facility] Address [address] [place] [address] Care Team Providers Care Retail Team Leader Name Role Phone Fritz Shelley MD Primary Care Provider +1- [phone] Allergies No known active allergies Medications gemfibrozil [...] Vaccine ( - 2023- season) 2023 Insurance [facility] [employer] Care Teams Retail Team Leader Relationship Specialty Start Date End Date Fritz Shelley MD [address] [place] [address] [place] [address] PCP - General Internal Medicine 12/11/19
--- OUTSIDE RECORDS SUMMARY | 2024-08-08 10:51 | XMS_ITS | Encounter Summary ---
Author Organization [facility] Address [address] [place] [address] Care Team Providers Care Lorry Weigher Name Role Phone Fritz Shelley MD Primary Care Provider +1- [phone] Reason for Visit * Reason Comments Other Encounter Details Date Type Department Care Team ([facility] st Contact Info) Description 09/22/2020 Telephone [facility] Urologic Surgery [place] [address] [phone] Nicholas Fernandez MD [address] [address] Other Social History Tobacco Use Types Packs/Day [...] on filedocumented in this encounter Care Teams Lorry Weigher Relationship Specialty Start Date End Date Fritz Shelley MD [address] [place] [address] [place] [address] PCP - General Internal Medicine 12/11/19 documented as of this encounter
== END 2024-08-08 10:32 | disposition home or self-care (01) ==
LOC: HO.HMCC 09:54
PROVIDERS: PCP Nurse Practitioner Family; Visit Provider Nurse Practitioner Family
DX: F10.90 Alcohol use, unspecified, uncomplicated (principal); E11.9 Type 2 diabetes mellitus without complications; E87.6 Hypokalemia; Z12.5 Encounter for screening for malignant neoplasm of prostate; Z13.9 Encounter for screening, unspecified

== ENCOUNTER 2024-08-08 09:54 | Outpatient (REF) | payer OTHER, SELFPAY ==
--- OUTSIDE RECORDS SUMMARY | 2024-08-08 12:01 | XMS_ITS | Encounter Summary ---
Author Organization [facility] Address [address] [place] [address] Care Team Providers Care Bi Report Developer Name Role Phone Fritz Shelley MD Primary Care Provider +1- [phone] Reason for Visit * Reason Comments Appointment Encounter Details Date Type Department Care Team ([facility] st Contact Info) Description 10/22/2020 Telephone [facility] [address] [place] [phone] Nicholas Fernandez MD [address] [address] Appointment Social History Tobacco Use Types Packs/Day [...] on filedocumented in this encounter Care Teams Bi Report Developer Relationship Specialty Start Date End Date Fritz Shelley MD [address] [place] [address] [address] PCP - General Internal Medicine 12/11/19 documented as of this encounter
--- OUTSIDE RECORDS SUMMARY | 2024-08-08 12:02 | XMS_ITS | Clinical Summary ---
Author Organization [facility] Address [address] [place] [address] Care Team Providers Care Business Office Technology Instructor Name Role Phone Fritz Shelley MD Primary Care Provider +1- [phone] Allergies No known active allergies Medications gemfibrozil [...] Vaccine ( - 2023- season) 2023 Insurance [facility] [employer] Care Teams Business Office Technology Instructor Relationship Specialty Start Date End Date Fritz Shelley MD [address] [place] [address] [place] [address] PCP - General Internal Medicine 12/11/19
--- OUTSIDE RECORDS SUMMARY | 2024-08-08 12:02 | XMS_ITS | Encounter Summary ---
Author Organization [facility] Address [address] [place] [address] Care Team Providers Care Fitter Hand Name Role Phone Fritz Shelley MD Primary Care Provider +1- [phone] Reason for Visit * Reason Comments Prior Authorization xiaflex Encounter Details Date Type Department Care Team (Late st Contact Info) Description 02/19/2020 Telephone [facility] Urologic Surgery [place] [address] [facility] [address] [place] [phone] Deborah Figueroa MD [address] [facility] [address] [place] [address] Prior Authorization (xiaflex) Social History Tobacco Use [...] on filedocumented in this encounter Care Teams Fitter Hand Relationship Specialty Start Date End Date Fritz Shelley MD [address] [place] [address] [place] [address] PCP - General Internal Medicine 12/11/19 documented as of this encounter
--- OUTSIDE RECORDS SUMMARY | 2024-08-08 12:02 | XMS_ITS | Data Portability ---
Author Organization [place] - [facility], Allergy Address [address] [place] [phone] Care Team Providers Care Injection Wax Molder Name Role Phone LUDY JOHNSON Primary Care Provider [phone] Assessment Encounter Date Assessment Date Assessment LastModified [...] drug-induc ed sleep endoscopy (SURG) 2023 024 [email or web address] [id number] Not available 16:39:19 Surgeries None recorded. Imaging None recorded. Medication Orders None recorded. Patient TargetsNo targets recorded. Patient InstructionsNo instructions recorded. Reason for Referral None Reported. Results Created Date Observation Date Name Description Value Unit Range Abnormal Flag Note LastModifiedBy Organization Detail LastModifiedTime 01/16/2001/16/2024 sleep study , diagn ostic (PROC ) No observ ation record ed. [facility] (Medical Records) [address] [place], [address], 01/16/2024 12:21:38 Result Notes None recorded. Problems Name Problem SNOMED Code Status Onset Date Resolution Date Notes Provider Name and Address Organization Details Recorded Time Disorder of upper respirato ry system 502334663 Active 2015 Other specified diseases of upper respirator y tract; Note: Date Diagnosed: 05/23/2015 10:28 AM (J39.8) Not Available [facility] 02:39:14 Obstructi ve sleep apnea syndrome 93206931 Active 2023 DELMY SEGURA MD [address] [place] [address],[place] [address], [place], [phone] , [place] - [facility] 20:44:56 Tremor 80725145 Active 2023 DELMY SEGURA MD [address] [place] [address],[place] [address], [place], [address] , [place] - [facility] 20:45:03 Chronic insomnia 810471482 Active 2023 DELMY SEGURA MD [address] [place] [address],[place] [address], [place], [address] , [place] - [facility] 12:08:03 Problem Notes None recorded. Procedures Surgical History Date Name Laterality Status Provider Name and Address Organization Details Recorded Time 01/16/2024 FOL_DP completed DELMY SEGURA MD [address] [place] [address],[place] [address], [place], [phone], [facility] - [facility] 01/13/2024 20:44:48 Imaging Results Imaging Date Name Status LastModified by Organiz ation Details LastModified Time 01/16/2024 sleep study, diagnostic (PROC) completed [facility] (Medical Records) [address] [place], [address], 01/16/2024 12:21:38 Procedure Notes None recorded. Medical [...] mg tablet 2015 active Medicatio n ID: [id number] Du ration Value: 30 Brand Name: quetiapin [...] mg tablet 2015 active Medicatio n ID: [id number] Du ration Value: 30 Brand Name: sertralin [...] 600 mg tablet active Medicatio n ID: [id number] Br and Name: kosta il Send Method: [...] mg tablet 2015 active Medicatio n ID: [id number] Du ration Value: 30 Brand Name: clonazepa [...] layed release 2014 active Medicatio n ID: [id number] Du ration Value: 90 Brand Name: omeprazol [...] Updated DateTime 01/16/2024 170.18 cm 31.3 kg/m2 00845.47 g Kelsey Ba [place] - [facility] 01/16/2024 11:48:17 Social History None recorded. Functional Status None recorded. Mental Status None recorded. Family History Nothing Reported. Medical History No medical history recorded. Past Encounters Encounter ID Performer Location Encounter Start Date Encounter Closed Date Diagnosis/Indication Diagnosis SNOMED-CT Code Diagnosis ICD10 Code Diagnosis Note DELMY SEGURA MD [facility] [address] [phone] 01/16/2024 11:22:17 01/16/2024 13:49:06 Obstructive sleep apnea syndrome 05903003 G47.33 [facility] [place] Tremor 28914024 R25.1 Chronic insomnia 8576127 04 F51.04 I am concerned the patient may ultimately not be a good candidate for the inspire implantati on secondary to his chronic insomnia. Encouraged him to continue working with sleep center to get this under control Body mass index 30+ - obesity 075245653 Z68.31 Health Concerns Section Related Observation LastModified by Organization Detai ls LastModified Time None Recorded Concern Status LastModified by Organization Details LastModified Time None Recorded Advance Directives Directive None Recorded Payers Encounter Date Sequence Insurance Name Policy Number Policy Brewer Covered Member ID Brewer Member ID Guarantor Name 01/16/2024 1 [facility] - HEALTH NET PLAN (MEDICAID HMO) JORGE Juan [id number] Jose Miguel Juan Notes Date Note Type [...] 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
--- OUTSIDE RECORDS SUMMARY | 2024-08-08 12:02 | XMS_ITS | Encounter Summary ---
Author Organization [facility] Address [address] [place] [address] Care Team Providers Care Landscaping Supervisor Name Role Phone Fritz Shelley MD Primary Care Provider +1- [phone] Reason for Visit * Reason Comments Other Encounter Details Date Type Department Care Team ([facility] st Contact Info) Description 09/22/2020 Telephone [facility] Urologic Surgery [place] [address] [phone] Nicholas Fernandez MD [address] [phone] Other Social History Tobacco Use Types Packs/Day [...] on filedocumented in this encounter Care Teams Landscaping Supervisor Relationship Specialty Start Date End Date Fritz Shelley MD [address] [place] [address] [place] [id number] PCP - General Internal Medicine 12/11/19 documented as of this encounter
[2024-08-08 13:46] LABS: Appearance Urine Clear; Color Urine Dark Yellow; Glucose Urine UA Negative (Negative); Leukocyte Esterase Urine Negative (Negative); Nitrite Urine Negative (Negative); Specific Gravity - Urine 1.015 (1.005-1.025); Urine Blood Negative (Negative); Urine Ketones Negative (Negative); Urine Protein Trace mg/dL (Neg-Trace)
[2024-08-08 14:07] LABS: Alanine Aminotransferase 26 U/L (0-40); Albumin Level 4.2 g/dL (3.5-5.0); Alkaline Phosphatase 58 U/L (39-117); Anion Gap 14 (12-20); Aspartate Amino Transferase 42 U/L (5-37); Bilirubin Total 0.3 mg/dL (0.0-1.0); Blood Urea Nitrogen 8 mg/dL (9-16); Calcium 9.7 mg/dL (8.4-10.2); Carbon Dioxide 30 mmol/L (22-29); Chloride 101 mmol/L (96-108); Cholesterol 180 mg/dL (<200); Estimated Glomerular Filt Rate > 60; Glucose Random 162 mg/dL (60-115); HDL Cholesterol 56 mg/dL (>40); Potassium 3.6 mmol/L (3.3-5.1); Sodium 141 mmol/L (135-145); Total Protein 6.6 g/dL (6.5-8.0); Triglycerides 443 mg/dL (<150)
[2024-08-08 14:08] LABS: Creatinine Urine 152.37 mg/dL; Microalbum/Creatinine Ratio Ur 3.2 ug/mg cr (<30)
[2024-08-08 14:11] LABS: Prostate Specific Antigen Scr 1.17 ng/mL (<0.05-4.0)
[2024-08-08 14:25] LABS: TSH reflex Free T4 1.73 uIU/mL (0.32-4.0)
== END 2024-08-08 09:55 | disposition home or self-care (01) ==
LOC: HO.HMGCLDS 09:54
PROVIDERS: PCP Nurse Practitioner Family; Visit Provider Nurse Practitioner Family
DX: E11.9 Type 2 diabetes mellitus without complications (principal); E87.6 Hypokalemia; F10.90 Alcohol use, unspecified, uncomplicated
CPT/HCPCS: 36415; 80053; 80061; 81003; 82043; 82570; 83036; 84153; 84443; 96127; 99212

== ENCOUNTER 2024-12-15 00:55 | Emergency (ER) | payer OTHER, SELFPAY ==
[2024-12-15] VITALS (8 sets, daily range): BP systolic 103–151; BP diastolic 61–90; PULSE 90–127; RESP 12–20; TEMP 36.5–36.9; O2SAT 88–100; BMI 29.8
--- NOTE | ~2024-12-15 | XR_ITS ---
CLINICAL HISTORY: pain, swelling 3 view right ankle Comparison: None provided Findings: No definite fracture or acute osseous abnormality identified. No ankle effusion. No radiopaque foreign body. Calcaneal plantar and Achilles enthesopathy. Exam is limited by oblique angle of acquisition. IMPRESSION: 1. No acute findings. This document has been electronically signed by: Harris Brown MD, PHD on 12/15/2024 03:01:38
--- NOTE | 2024-12-15 01:03 | ECG_ITS ---
Test Reason : TACHYCARDIA Blood Pressure : */* mmHG Vent. Rate : 120 BPM Atrial Rate : 120 BPM P-R Int : 156 ms QRS Dur : 88 ms QT Int : 334 ms P-R-T Axes : 28 -61 44 degrees QTcB Int : 472 ms Sinus tachycardia Left anterior fascicular block Possible Anterolateral infarct , age undetermined Abnormal ECG When compared with ECG of 05-Aug-2024 19:58, Left anterior fascicular block is now Present Referred By: Rhona Marsh Electronically Signed By: Bahman Chavira
[2024-12-15 01:10] LABS: Glucose, Whole Blood 277 mg/dL (60-115)
[2024-12-15 01:26] LABS: Hematocrit 27.3 % (42.0-52.0); Hemoglobin 9.3 g/dl (14.0-18.0); Imm Gran Abs Auto 0.01 X10*3/uL (0.00-0.03); Imm Gran Pct Auto 0.2 % (0.0-0.4); Lymphocytes Absolute Auto 1.1 X10*3/uL (1.2-4.9); MANUAL DIFF FLAG NO; Mean Corpuscular HGB Conc 34.1 g/dl (31.0-36.0); Mean Corpuscular Hemoglobin 27.3 pg (27.0-33.0); Mean Corpuscular Volume 80.1 fL (80.0-98.0); NRBC Abs Auto 0.000 X10*3/uL (0.0-0.012); NRBC Pct Auto 0.0 /100WBC (0.0-0.2); Platelet Count 183 X10*3/uL (160-400); Red Blood Count 3.41 X10*6/uL (4.60-5.80); White Blood Count 4.7 X10*3/uL (4.8-10.8)
[2024-12-15] MEDS: diazePAM 10 MG/2 ML CARTRIDGE 5 MG IVPUSH (01:37)
[2024-12-15 01:53] LABS: Alanine Aminotransferase 22 U/L (0-40); Albumin Level 4.3 g/dL (3.5-5.0); Alkaline Phosphatase 64 U/L (39-117); Anion Gap 20 (12-20); Aspartate Amino Transferase 32 U/L (5-37); Blood Urea Nitrogen 12 mg/dL (9-16); Calcium 8.7 mg/dL (8.4-10.2); Carbon Dioxide 27 mmol/L (22-29); Chloride 100 mmol/L (96-108); Creatinine Clr Calc Pharmacy 71.2; Estimated Glomerular Filt Rate > 60; Magnesium 2.0 mg/dL (1.6-2.6); Potassium 3.3 mmol/L (3.3-5.1); Sodium 144 mmol/L (135-145); Total Protein 6.6 g/dL (6.5-8.0)
--- OUTSIDE RECORDS SUMMARY | 2024-12-15 03:00 | XMS_ITS | Encounter Summary ---
Author Organization [facility] Address [address] [place] [address] Care Team Providers Care Wood Heel Flap Inserter Name Role Phone Fritz Shelley MD Primary Care Provider +1- [phone] Reason for Visit * Reason Comments Other Encounter Details Date Type Department Care Team ([facility] st Contact Info) Description 09/22/2020 Telephone [facility] Urologic Surgery [place] [address] [phone] Nicholas Fernandez MD [address] [place] [id number] Other Social History Tobacco Use Types Packs/Day [...] on filedocumented in this encounter Care Teams Wood Heel Flap Inserter Relationship Specialty Start Date End Date Fritz Shelley MD [address] [place] [address] [place] [phone] PCP - General Internal Medicine 12/11/19 documented as of this encounter
--- OUTSIDE RECORDS SUMMARY | 2024-12-15 03:00 | XMS_ITS | Encounter Summary ---
Author Organization [facility] Address [address] [place] [address] Care Team Providers Care Green Building Architect Name Role Phone Fritz Shelley MD Primary Care Provider +1- [phone] Reason for Visit * Reason Comments Prior Authorization xiaflex Encounter Details Date Type Department Care Team (Late st Contact Info) Description 02/19/2020 Telephone [facility] Urologic Surgery [place] 85 [facility] [address] [place] [phone] Deborah Figueroa MD [address] [facility] [address] [place] [address] Prior Authorization (xiaflex) Social History Tobacco Use [...] on filedocumented in this encounter Care Teams Green Building Architect Relationship Specialty Start Date End Date Fritz Shelley MD [address] [place] [address] [place] [id number] PCP - General Internal Medicine 12/11/19 documented as of this encounter
--- OUTSIDE RECORDS SUMMARY | 2024-12-15 03:00 | XMS_ITS | Clinical Summary ---
Author Organization [facility] Address [address] [place] [address] Care Team Providers Care Wilderness Guide Name Role Phone Fritz Shelley MD Primary Care Provider +1- [phone] Allergies No known active allergies Medications gemfibrozil [...] 67 01/28/2021 3:07 PM EDT Temperature 36.6 C (97.8 F) 03/13/2021 3:06 PM EST Respiratory Rate 16 01/28/2021 3:07 PM EDT [...] Zoster (Shingles) Vaccine (1 of 2) 08/08/2017 COVID-19 Vaccine (1 - 2023- season) 2023 Influenza Vaccine 11/09/2024 Insurance [facility] Care Teams Wilderness Guide Relationship Specialty Start Date End Date Fritz Shelley MD [address] [place] [address] [place] [address] PCP - General Internal Medicine 12/11/19
--- OUTSIDE RECORDS SUMMARY | 2024-12-15 03:00 | XMS_ITS ---
Author Name [facility] Organization Unknown History of Medication Use Medication Directions Dispensed Refills Start Date End Date Stat us gemfibrozil (LOPID) 600 MG tablet Take 600 mg by mouth 2 (two) times a day. 11/02/2019 active Encounters Encounter Type Encounter Reason Primary Diagnosis Location Date Ambulatory Induration penis [facility]a [facility] 03/13/2021 Ambulatory Induration penis plastica [facility] 01/28/2021 Care Team Organization Name Specialty Phone Email Start Date End Da te [facility] JENNIFER JOLLEY Primary Care 03/14/202111/27 [facility] JENNIFER SHOLA Primary Care 06/20/202003/13
--- OUTSIDE RECORDS SUMMARY | 2024-12-15 03:00 | XMS_ITS | Encounter Summary ---
Author Organization [facility] Address [address] [place] [address] Care Team Providers Care Platform Beater Name Role Phone Fritz Shelley MD Primary Care Provider +1- [phone] Reason for Visit * Reason Comments Appointment Encounter Details Date Type Department Care Team ([facility] st Contact Info) Description 10/22/2020 Telephone [facility] [address] [place] [phone] Nicholas Fernandez MD [address] [address] Appointment Social History Tobacco Use Types Packs/Day [...] on filedocumented in this encounter Care Teams Platform Beater Relationship Specialty Start Date End Date Fritz Shelley MD [address] [place] [id number] PCP - General Internal Medicine 12/11/19 documented as of this encounter
--- NOTE | 2024-12-15 06:14 | PC.NURSE ---
RN to bedside this AM for check in and to remind patient of need for UA/Tox.. EDT at bedside updating vitals. The pt states I'm ready to discharge . This RN inquired about the pt's request to leave vs his initial reason for presentation and his request/desire for detox to which he responded I did detox as he referenced his evening of slumber. The pt is conversational, I would not say fully alert at this time as he continues to talk and answer questions with his eyes closed and slowly. The O2 via NC was removed to ensure an accurate room air saturation on the patient as he is not O2 dependent at baseline. aware and plan for patient to be discharged as his bedside visitor is agreeable to taking him home.
--- NOTE | 2024-12-15 06:18 | ED.PSYCH ---
HPI - Psych General Chief Complaint: ETOH/Substance Use Stated Complaint: Fall , R angle injury Time Seen by Provider: 12/15/24 01:03 Source: patient and EMS Mode of arrival: EMS Limitations: no limitations History of Present Illness ED Provider: Dr. Rhona Marsh HPI Narrative: patient comes to the emergency room via ambulance. According to the patient, patient drinks have gotten of alcohol every day. Last drink today was a proximally 6 hours ago. Patient reports headache, not feeling well. Denies SI or HI. Patient is unsure if he is having hallucinations, states that he is so on min sticking his tongue out of the him. Patient requesting detox. according to EMS, the patient's was concerned about the patient's left ankle. Patient states that he has no issues with his ankle, no falls no pain. Related Data Home Medications ?Medication ?Instructions ?Recorded ?Confirmed multivitamin 1 tab PO DAILY 02/28/24 08/08/24 melatonin 3 mg tablet 3 - 9 mg PO BEDTIME PRN Sleep 04/20/24 08/08/24 Nugenix 3 tab PO DAILY 06/11/24 08/08/24 Previous Rx's ?Medication ?Instructions ?Recorded rosuvastatin 40 mg tablet 40 mg PO BEDTIME #90 tabs 06/03/24 naltrexone 50 mg tablet 50 mg PO DAILY #30 tabs 08/07/24 bupropion HCl 200 mg tablet,12 hr 200 mg PO DAILY 60 days #60 tabs 08/15/24 sustained-release quetiapine 100 mg tablet 200 - 300 mg (2 - 3 x 100 mg) PO 11/14/24 BEDTIME PRN anxiety 60 days #120 tabs labetalol 300 mg tablet 300 mg PO BID #180 tabs 11/25/24 pantoprazole 40 mg tablet,delayed 40 mg PO DAILY@0630 #90 tabs 11/27/24 release metformin 1,000 mg tablet 1,000 mg PO BID 90 days #180 tabs 12/03/24 primidone 50 mg tablet 100 mg (2 x 50 mg) PO BID 30 days 12/05/24 #120 tabs Allergies Allergy/AdvReac Type Severity Reaction Status Date / Time No Known Allergies (No Known Allergy Verified 12/15/24 01:31 Allergies*) Review of Systems Review of Systems: Constitutional : No Weight loss, No Fever, No Chills, No Night Sweats, No Fatigue, No Malaise ENT/Mouth : No Hearing loss, No Ear Pain, No Nasal Congestion, No Sinus Pain, No Hoarseness, No sore throat, No Rhinorrhea, No Swallowing Difficulty Eyes: No Eye Pain, No Swelling, No Redness, No Foreign Body, No Discharge, No Vision Changes Cardiovascular : No Chest Pain, No SOB, No Dyspnea on Exertion, No Orthopnea, No Edema, No Palpitations Respiratory : No Cough, No Sputum, No Wheezing, No Smoke Exposure, No Dyspnea Gastrointestinal : No Nausea, No Vomiting, No Diarrhea, No Constipation, No abdominal Pain, No Hematochezia, No Melena Genitourinary : no irregular bleeding, No Dysuria, No Urinary Frequency, No Hematuria, No Urinary Incontinence, No Urgency, No Flank Pain, No Urinary Flow Changes, No Hesitancy Musculoskeletal : No joint pain, No Myalgias, No Joint Swelling Skin : No Skin Lesions, No rash Neuro : No Weakness, No Numbness, No Paresthesias, No Loss of Consciousness, No Dizziness, No Headache Psych : No Anxiety/Panic, No Depression, No SI/HI/AH/VH, Admits to alcohol abuse and intoxication Heme/Lymph: No Bruising, No Bleeding,No Lymphadenopathy Endocrine : No Polyuria, No Polydipsia, No Temperature Intolerance [facility] Past Medical History Medical History Alcohol use disorder 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 esophagus History of varicose veins Fatty liver Obstructive sleep apnea Essential and other specified forms of tremor Hypersomnolence Snoring Diabetes mellitus Alcoholic ketoacidosis Anxiety with depression Alcohol use disorder, severe, dependence Recurrent moderate major depressive disorder with anxiety Insomnia Alcohol withdrawal History of alcoholic hepatitis HTN (hypertension) Acute hepatitis Alcohol abuse with withdrawal Obesity (BMI 30-39.9) GERD without esophagitis Mixed hyperlipidemia Benign essential hypertension Surgical History History of right-sided carotid endarterectomy History of esophagogastroduodenoscopy (EGD) H/O colonoscopy Family History Family History Father Advanced cirrhosis of liver Alcoholic cirrhosis Substance use disorder Mother Dementia Maternal Grandfather Substance use disorder Sister Substance use disorder Maternal Grandfather Colon cancer Prostate cancer Social History Social History Household Members: Significant Other Household Members Other:: Cousin Housing: House Are you a primary residential care officer to a significant other at home: No Do you presently have visiting nurse or other home services: No Unable to assess alcohol history related to: Unknown Alcohol intake: current Alcohol intake frequency: 3 or more drinks per day Alcohol type: hard liquor Comment: seizure pads Patient Tobacco Use Status: Former Tobacco user Tobacco use type: Cigarette Years Smoked: quit 10 years ago Smoked in Last 30 Days: No e-Cigarette/Vaping Use: Never Used Second Hand Smoke Exposure: No Use of substances other than those prescribed or required for medical reasons: No Substance Use Type: Marijuana Advance Directives: Yes Advance Directives on File: Yes Advance Directives Date on File: 10/23/21 service: No Current occupational status: 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 Oriented X3. No acute distress. Eyes: Pupils equal, round and reactive to light. ENT: Pharynx normal. Neck: Normal inspection. Neck supple. No lymph nodes noted. No crepitus CVS: Normal heart rate and rhythm. Pulses normal. Normal S1 and S2 Respiratory: No respiratory distress. Breath sounds normal. No Wheezing. No rales Abdomen: Soft and nontender. No rigidity. No distention. Skin: Skin warm and dry. Normal skin color. Normal skin turgor. Extremities: No lower extremity edema. No Lacerations. No Rash Neuro: Oriented X 3. No motor deficit. No sensory deficit. Moving all extremities. No slurred speech. CN 2 through 12 grossly intact Psych: calm, cooperative, normal affect Vital Signs: Vital Signs: Last Vital Signs Temp 97.7 F 12/15/24 06:11 Pulse 90 12/15/24 12:00 Resp 14 12/15/24 12:00 BP 151/90 H 12/15/24 12:00 Pulse Ox 100 12/15/24 12:00 O2 Del Method Nasal Cannula 12/15/24 12:00 O2 Flow Rate 2 12/15/24 12:00 BMI result Body Mass Index 29.8 Course Course Course Narrative: patient on arrival Requested detox for EtOH. Reevaluation(s) Reevaluation #1: Patient has been sleeping since receiving my sign out at 07:00 in the morning Time: 12:15 Reevaluation #2: Ambulatory, awake, ready for discharge Time: 13:48 Medications Administered Discontinued Medications Generic Name Dose Route Start Last Admin Trade Name Shante PRN Reason Stop Dose Admin Diazepam 5 mg 12/15/24 01:03 12/15/24 01:37 Diazepam 10 Mg/2 Ml Cartridge IVPUSH 12/15/24 01:04 5 mg STAT STA Administration Medical Decision Making Medical Decision Making [facility] Narrative: Patient was very anxious, heart rate in the 120s. Patient was given a dose of IV diazepam. My interpretation of labs: No significant acute abnormality, patient is anemic at baseline, no abnormality in patient's chemistry, glucose 308, no abnormality it patient's LFTs, ETOH level 82. patient declined treatment for Hyperglycemia patient declined care/ detox According to the patient, he did not have any injuries or any falls. CT scan of the head/ neck was not indicated. Patient is awake and alert, patient states that he feels well, patient states that he completed his detox and is ready to be discharged patient requesting a few more minutes to discharge patient denies SI and HI, does not want detox patient's at bedside, patient agreeable to take the patient whenever his more awake and ready to be discharged. Differential Diagnosis Differential Diagnoses: The differential diagnosis associated with the presentation includes ( alcohol intoxication polysubstance abuse, anxiety, depression) Admission/Observation Consideration of admission/observation: Escalation of care including admission/observation considered ( patient was under physician observation) Lab Data [facility] Lab Attestation statement: I reviewed the patient's lab results. 12/15/24 01:21 12/15/24 01:21 Labs: Lab Results 12/15/24 12/15/24 Range/Units 01:04 01:21 WBC 4.7 L (4.8-10.8) X10*3/uL RBC 3.41 L (4.60-5.80) X10*6/uL Hgb 9.3 L (14.0-18.0) g/dl Hct 27.3 L (42.0-52.0) % MCV 80.1 (80.0-98.0) fL MCH 27.3 (27.0-33.0) pg MCHC 34.1 (31.0-36.0) g/dl RDW 15.0 (11.0-16.0) % Plt Count 183 D (160-400) X10*3/uL MPV 8.9 L (9.4-12.4) fL Immature Gran % (Auto) 0.2 (0.0-0.4) % Neut % (Auto) 64.2 (45-73) % Lymph % (Auto) 24.2 (20-40) % Sioux % (Auto) 9.5 (2-11) % Eos % (Auto) 1.5 (0-4) % Baso % (Auto) 0.4 (0-2) % Lymph # (Auto) 1.1 L (1.2-4.9) X10*3/uL Sioux # (Auto) 0.5 (0.1-1.2) X10*3/uL Eos # (Auto) 0.1 (0.0-0.4) X10*3/uL Baso # (Auto) 0.0 (0.0-0.2) X10*3/uL Abs Immat Gran (auto) 0.01 (0.00-0.03) X10*3/uL Absolute Neuts (auto) 3.0 (2.0-8.3) x10*3/uL Absolute Nucleated RBC 0.000 (0.0-0.012) X10*3/uL Nucleated RBC % (auto) 0.0 (0.0-0.2) /100WBC Sodium 144 (135-145) mmol/L Potassium 3.3 (3.3-5.1) mmol/L Chloride 100 (96-108) mmol/L Carbon Dioxide 27 (22-29) mmol/L Anion Gap 20 (12-20) BUN 12 (9-16) mg/dL Creatinine 1.20 (0.5-1.4) mg/dL Estim Creat Clear Calc 71.2 Estimated GFR > 60 POC Glucose 277 H (60-115) mg/dL Random Glucose 308 H (60-115) mg/dL Calcium 8.7 D (8.4-10.2) mg/dL Magnesium 2.0 (1.6-2.6) mg/dL Total Bilirubin 0.2 (0.0-1.0) mg/dL Direct Bilirubin < 0.2 (0.0-0.5) mg/dL AST 32 (5-37) U/L ALT 22 (0-40) U/L Alkaline Phosphatase 64 (39-117) U/L Total Protein 6.6 (6.5-8.0) g/dL Albumin 4.3 (3.5-5.0) g/dL Ethyl Alcohol 82 mg/dL Critical Care Time Critical Care Time Critical Care Time: Yes Total Critical Care Time: 35 Attestation: I have personally provided critical care time. Time includes review of lab data, radiology results, discussion with consultants, and monitoring for potential decompensation. Intervention performed as documented. Discharge Plan Discharge Clinical Impression: Alcohol intoxication Patient Disposition: Home, Self-Care Instructions: Alcohol Intoxication (ED) Additional Instructions: Alcohol use disorder You were seen in the Emergency Department today for treatment of alcohol use disorder.? You may have been given medications to help with your withdrawal symptoms.? Please do not drink alcohol with them. This is very dangerous and can cause respiratory depression or other adverse reactions depending on the medication. If you would like to cut down or stop your alcohol use please consider calling our outpatient Addiction Treatment office:? [facility] ([id number] [id number] [address] [place] [address] You have also been given a list of treatment providers in the area that can assist as well.? If you experience seizures, vomiting blood, black stools, falls, severe headache, chest pain, fevers, trouble breathing, hallucinations or any other concerns you need to call 911 or seek immediate care. Please stay hydrated. Prescriptions: No Action multivitamin Tablet 1 tab PO DAILY rosuvastatin 40 mg tablet 40 mg PO BEDTIME Qty: 90 2RF bupropion HCl 200 mg tablet sustained-release 12 hr 200 mg PO DAILY 60 Days Qty: 60 0RF quetiapine 100 mg tablet 200 - 300 mg PO BEDTIME PRN (Reason: anxiety) 60 Days Qty: 120 0RF labetalol 300 mg tablet 300 mg PO BID Qty: 180 1RF pantoprazole 40 mg tablet,delayed release (DR/EC) 40 mg PO DAILY@0630 Qty: 90 1RF metformin 1,000 mg tablet 1,000 mg PO BID 90 Days Qty: 180 1RF primidone 50 mg tablet 100 mg PO BID 30 Days Qty: 120 2RF Nugenix 3 tab PO DAILY naltrexone 50 mg tablet 50 mg PO DAILY Qty: 30 0RF melatonin 3 mg tablet 3 - 9 mg PO BEDTIME PRN (Reason: Sleep) Print Language: Solomon Islander
--- NOTE | 2024-12-15 06:32 | PC.NURSE ---
RN to bedside as pt's O2 saturation was noted to be in the low to mid 80s on room air. Upon arrival to the bedside the pt was resting with eyes closed, arousable to verbal stimuli and states that he infact was NOT ready for discharge. He states that he attempted to get up and felt unsteady on his feet and understands that he is not yet ready, was made aware and the pt is now going [facility]. This RN offered/asked if the pt would be interested [facility] and[facility]or addiction[facility]recovery team and he declined as he states that he will soon be going to a state fpc so it's not needed. RN believes the pt's hypoxia at this time is secondary to his restful state and due to him still being somnolent he was placed back on the supplemental O2 via NC at 2lpm with positive effects
== END 2024-12-15 13:58 | disposition home or self-care (01) ==
PROVIDERS: Emergency Provider Emergency Medicine
DX: F10.129 Alcohol abuse with intoxication, unspecified (principal); Y90.4 Blood alcohol level of 80-99 mg/100 ml; M25.571 Pain in right ankle and joints of right foot; R00.0 Tachycardia, unspecified; Z79.899 Other long term (current) drug therapy; Z51.81 Encounter for therapeutic drug level monitoring
CPT/HCPCS: 36415; 73610; 80048; 80076; 80307; 82947; 83735; 85025; 93005; 96374; 99284; 99285; J3360

== ENCOUNTER → 2024-12-15 01:03 | Outpatient (BNV) | payer OTHER, SELFPAY | PROVIDERS: Emergency Provider Emergency Medicine; Visit Provider Internal Medicine Cardiovascular Disease | DX: I44.4 Left anterior fascicular block (principal); R00.0 Tachycardia, unspecified | CPT/HCPCS: 93010 ==

== ENCOUNTER → 2024-12-15 02:17 | Outpatient (BNV) | payer OTHER, SELFPAY | PROVIDERS: Emergency Provider Emergency Medicine; Visit Provider General Practice | DX: M25.571 Pain in right ankle and joints of right foot (principal); R22.41 Localized swelling, mass and lump, right lower limb | CPT/HCPCS: 73610 ==

== ENCOUNTER 2024-12-17 10:50 | Inpatient (IN) | payer OTHER, SELFPAY ==
[2024-12-17] VITALS (10 sets, daily range): BP systolic 118–182; BP diastolic 77–112; PULSE 95–116; RESP 11–23; TEMP 36.4–36.8; O2SAT 86–100; BMI 25.8
--- NOTE | 2024-12-17 | ECG_ITS ---
Test Reason : TACHY Blood Pressure : */* mmHG Vent. Rate : 108 BPM Atrial Rate : 108 BPM P-R Int : 178 ms QRS Dur : 98 ms QT Int : 340 ms P-R-T Axes : 29 -59 16 degrees QTcB Int : 455 ms Sinus tachycardia Left anterior fascicular block Possible Anterolateral infarct (cited on or before 15-Dec-2024) Abnormal ECG When compared with ECG of 15-Dec-2024 01:12, ST elevation now present in Anterior leads ST no longer depressed in Lateral leads Referred By: Generic ED Physician Electronically Signed By: ISRA HERNANDEZ MD
--- NOTE | ~2024-12-17 | XR_ITS ---
EXAMINATION: XR ELBOW, LEFT CLINICAL INFORMATION: trauma COMPARISON: None available. TECHNIQUE: AP, lateral, and oblique views of the left elbow. FINDINGS: Small osteophytes are present involving the elbow joint along the radial head and minimal coronoid process. The anterior fat pad of the elbow joint is borderline anteriorly displaced. No fracture line is evident. There is enthesophyte is present on proximal ulna at the triceps attachment. There is very faint chondrocalcinosis in the humeral capitellar joint. XR/XR elbow LT 2V IMPRESSION: There is borderline displacement of the anterior fat pad of elbow joint raising question of a joint effusion. Occult radial head fracture is not entirely ruled out because of this. Correlate clinically, and if indicated, follow-up x-ray in 7-10 days of the left elbow joint. 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 Electronically signed by: Dakota Espinosa MD 12/17/2024 01:10 PM EDT
--- NOTE | ~2024-12-17 | XR_ITS ---
Exam: X-ray, bilateral knees.XR KNEE 3 VIEWS BILATERAL TECHNIQUE: Four views lower extremity joint, bilateral knees INDICATION: fall COMPARISON: None available. FINDINGS: RIGHT KNEE: Faint chondrocalcinosis is visible on the lateral joint line. Additionally, there is more dense 1 cm wide rectangular calcification paralleling the lateral tibial plateau, centrally on the frontal view. Additionally, there are tricompartmental small marginal osteophytes and the medial intercondylar tubercle is peaked. Small amount of joint fluid is visible. Small corticated ossified body is present inferior to patella. LEFT KNEE: There is no joint effusion. There are small tricompartmental marginal osteophyte. Intercondylar tubercles are peaked. No fracture lines are evident. Broadbase convexity is present along the lateral cortex of the proximal tibial metadiaphysis that appears chronic in nature. XR/XR Knee [place] 3V IMPRESSION: Right knee: There is a 1 cm wide small calcification that is rectangular in shape parallels the lateral tibial plateau in the middle third joint space of uncertain origin. This could represent a small avulsion fracture. It could also represent a central osteophyte. 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 Left knee: Mild osteoarthritis. No acute abnormality. Electronically signed by: Dakota Espinosa MD 12/17/2024 01:17 PM EDT
--- NOTE | ~2024-12-17 | CT_ITS ---
CLINICAL HISTORY: PE rule out, aspiration pna? CT angiography chest with contrast. 3D Postprocessing. Comparison: None provided Findings: The heart size is normal. RV/LV ratio is normal. Unremarkable thoracic aorta and great vessels. No aneurysm. Although main pulmonary artery contrast opacification is technically adequate, the segmental and subsegmental branches are suboptimally enhanced. Enlarged pulmonary artery. This can be seen with pulmonary artery hypertension. Esophageal wall thickening. No mediastinal fluid. Mild dependent atelectasis both lungs. The upper abdomen is unremarkable. The bones are intact. IMPRESSION: 1. No acute pulmonary embolus within the limitations of the exam. 2. No consolidation or effusion. This document has been electronically signed by: Angeline Beckwith MD on 12/17/2024 21:10:45
--- NOTE | ~2024-12-17 | CT_ITS ---
EXAMINATION: CT HEAD WITHOUT CONTRAST CLINICAL INFORMATION: Fall, head trauma, intoxicated COMPARISON: None available. TECHNIQUE: Contiguous axial imaging was performed from the skull base to vertex without intravenous administration of contrast. This CT examination was performed using dose optimization techniques as appropriate, variously including the following: *Automated exposure control *Adjustment of mA and/or kV according to patient size (this includes techniques or standardized protocols for targeted exams where dose is matched to indication/reason for exam; i.e. extremities or head) *Use of iterative reconstruction technique DLP: 804 mGY*cm FINDINGS: There is no acute ischemic change. There is no intracranial hemorrhage. There is no mass-effect or midline shift. Basal cisterns and ventricles are within normal limits for age/cerebral volume. Orbits are symmetrical and unremarkable. Paranasal sinuses and mastoid air cells are pneumatized. Scaphocephaly is noted. No other bony abnormality is evident. CT/CT head/brain wo IV con IMPRESSION: No acute intracranial abnormality. Scaphocephaly. Electronically signed by: Dakota Espinosa MD 12/17/2024 01:48 PM EDT
--- NOTE | ~2024-12-17 | XR_ITS ---
EXAMINATION: XR CHEST 2 VIEWS HISTORY: sob COMPARISON: Comparison is made with the prior examination dated 08/05/2024. FINDINGS: AP and lateral views of the chest are submitted. The lungs are expanded and clear. There is no pleural effusion, pneumothorax, or pulmonary vascular congestion. The heart is normal in size. There is degenerative disc disease of the spine. XR/XR chest 2V IMPRESSION: No acute cardiopulmonary abnormality. Electronically signed by: Colby Fox MD 12/17/2024 01:06 PM EDT
--- NOTE | ~2024-12-17 | CT_ITS ---
EXAMINATION: CT CERVICAL SPINE WITHOUT CONTRAST CLINICAL INFORMATION: Fall, intoxication COMPARISON: September 11, 2022 TECHNIQUE: Axial imaging was performed from the base of the skull through T2 without IV contrast. Coronal and sagittal reformatted images were generated from the original axial data set. ALARA: The examination used one or more of the following radiation dose reduction techniques: Automated exposure control, iterative reconstruction, and/or adjustment of mA and/or KV. DLP: 517 mGY*cm FINDINGS: Degenerative changes which are most advanced at C5-6 are similar to the prior examination. There is straightening of cervical lordosis above C6-7. No fracture lines are evident. There is no prevertebral soft tissue edema. CT/CT cervical spine wo IV con IMPRESSION: No acute fracture. Stable degenerative changes. Electronically signed by: Dakota Espinosa MD 12/17/2024 01:44 PM EDT
[2024-12-17 11:30] LABS: MANUAL DIFF FLAG NO
[2024-12-17 11:34] LABS: Hematocrit 35.1 % (42.0-52.0); Hemoglobin 11.5 g/dl (14.0-18.0); Imm Gran Abs Auto 0.03 X10*3/uL (0.00-0.03); Imm Gran Pct Auto 0.5 % (0.0-0.4); Lymphocytes Absolute Auto 1.9 X10*3/uL (1.2-4.9); Mean Corpuscular HGB Conc 32.8 g/dl (31.0-36.0); Mean Corpuscular Hemoglobin 27.1 pg (27.0-33.0); Mean Corpuscular Volume 82.8 fL (80.0-98.0); NRBC Abs Auto 0.000 X10*3/uL (0.0-0.012); NRBC Pct Auto 0.0 /100WBC (0.0-0.2); Platelet Count 261 X10*3/uL (160-400); Red Blood Count 4.24 X10*6/uL (4.60-5.80); White Blood Count 5.8 X10*3/uL (4.8-10.8)
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
[2024-12-17 12:35] LABS: Alanine Aminotransferase 24 U/L (0-40); Albumin Level 4.7 g/dL (3.5-5.0); Alkaline Phosphatase 67 U/L (39-117); Anion Gap 21 (12-20); Aspartate Amino Transferase 33 U/L (5-37); Blood Urea Nitrogen 6 mg/dL (9-16); Calcium 12.6 mg/dL (8.4-10.2); Carbon Dioxide 30 mmol/L (22-29); Chloride 104 mmol/L (96-108); Creatinine Clr Calc Pharmacy 87.6; Estimated Glomerular Filt Rate > 60; Magnesium 1.4 mg/dL (1.6-2.6); Potassium 3.6 mmol/L (3.3-5.1); Sodium 151 mmol/L (135-145); Total Protein 7.4 g/dL (6.5-8.0)
[2024-12-17 12:42] LABS: Cannabinoid Screen Urine Not Detected (Not Detect)
[2024-12-17] MEDS: Magnesium Sulfate/H2O 2 GM/50 ML PIGGYBACK IV (12:58)
--- OUTSIDE RECORDS SUMMARY | 2024-12-17 14:31 | XMS_ITS | Encounter Summary ---
Author Organization [facility] Address [address] [place] [address] Care Team Providers Care Roving Hand Name Role Phone Fritz Shelley MD Primary Care Provider +1- [phone] Reason for Visit * Reason Comments Appointment Encounter Details Date Type Department Care Team ([facility] st Contact Info) Description 10/22/2020 Telephone [facility] [address] [place] [phone] Nicholas Fernandez MD [address] [address] Appointment Social History Tobacco Use Types Packs/Day Years Used Date Smoking Tobacco: Former Smokeless Tobacco: Never Sex and Gender Information Value Date Recorded Sex Assigned at Not on file Legal Sex Male 6:32 PM EST Gender Identity Not on file Sexual Orientation Not on file documented as of this encounter Miscellaneous Notes * Telephone Encounter - Alejandor Edmond - 12/25/2020 1:02 PM EDT LM [...] on filedocumented in this encounter Care Teams Roving Hand Relationship Specialty Start Date End Date Fritz Shelley MD [address] [place] [id number] PCP - General Internal Medicine 12/11/19 documented as of this encounter
--- OUTSIDE RECORDS SUMMARY | 2024-12-17 14:31 | XMS_ITS | Encounter Summary ---
Author Organization [facility] Address [address] [place] [address] Care Team Providers Care Corporate Communications Specialist Name Role Phone Fritz Shelley MD Primary Care Provider +1- [phone] Reason for Visit * Reason Comments Other Encounter Details Date Type Department Care Team ([facility] st Contact Info) Description 09/22/2020 Telephone [facility] Urologic Surgery [place] [address] [phone] Nicholas Fernandez MD [address] [place] [id number] Other Social History Tobacco Use Types Packs/Day [...] on filedocumented in this encounter Care Teams Corporate Communications Specialist Relationship Specialty Start Date End Date Fritz Shelley MD [address] [place] [address] [place] [address] PCP - General Internal Medicine 12/11/19 documented as of this encounter
--- OUTSIDE RECORDS SUMMARY | 2024-12-17 14:31 | XMS_ITS | Encounter Summary ---
Author Organization [facility] Address [address] [place] [address] Care Team Providers Care Paper Box Maker Name Role Phone Fritz Shelley MD Primary Care Provider +1- [phone] Reason for Visit * Reason Comments Prior Authorization xiaflex Encounter Details Date Type Department Care Team (Late st Contact Info) Description 02/19/2020 Telephone [facility] Urologic Surgery [place] [address] [facility] [address] [place] [phone] Deborah Figueroa MD [address] [facility] [address] [place] [address] Prior Authorization (xiaflex) Social History Tobacco Use [...] on filedocumented in this encounter Care Teams Paper Box Maker Relationship Specialty Start Date End Date Fritz Shelley MD [address] [place] [address] [place] [address] PCP - General Internal Medicine 12/11/19 documented as of this encounter
--- OUTSIDE RECORDS SUMMARY | 2024-12-17 14:31 | XMS_ITS | Clinical Summary ---
Author Organization [facility] Address [address] [place] [address] Care Team Providers Care Diamond Saw Operator Name Role Phone Fritz Shelley MD Primary Care Provider +1- [phone] Allergies No known active allergies Medications gemfibrozil [...] Vaccine (1 of 2) 08/08/2017 Influenza Vaccine 11/09/2024 COVID-19 Vaccine ( - 2023- season) 2024 Insurance [facility] [employer] Member Subscriber Plan / Payer (Ef fective 2020-Present) Name:Jose Miguel Juan Relation to Subscriber:Self Name:Jose Miguel Juan Payer ID:[id number] (NAIC) Type:Not on file Address: [place] [id number] [facility] [place] [place] [address] Care Teams Diamond Saw Operator Relationship Specialty Start Date End Date Fritz Shelley MD [address] [place] [address] [place] [address] PCP - General Internal Medicine 12/11/19
[2024-12-17] MEDS: PHENobarbitaL sodium 130 MG/ML IM ONCE 292 MG IM (15:53)
--- NOTE | 2024-12-17 16:00 | PC.NURSE ---
Pt more alert this afternoon. Pt wanting to leave AMA. States he will start withdrawing from ETOH. Pt made aware that he will be placed on phenobarb while in the hospital. states he will stay if he receives his meds. Pt medicated per MAR. Given food and drink. Pt states he will stay at this time. Denies SI/HI. VSS. Will continue to monitor closely.
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
[2024-12-17] MEDS: PHENobarbitaL sodium 130 MG/ML VIAL IM Q3Hx2 220 MG IM ×2 (18:23→21:39)
[2024-12-17] MEDS: Thiamine HCL 100 MG in 0.9 % Sodium Chloride 100 ML 202 MG IV (18:23)
[2024-12-17] MEDS: Lactated Ringers 1,000 ML 100 ML IVCONT (18:24)
--- NOTE | 2024-12-17 18:31 | PHA.MEDREC ---
Addendum entered by Kali Goodrich RP 12/17/24 18:40: reviewed by [facility] Original Note: Pharmacy Consult ? Medication Reconciliation Pharmacy has completed the medication reconciliation. Patient states he is not taking Naltrexone 50 mg, and primidone 50 mg. Patient reported that he is not always adherent with his medications. Patient states he hasn't had his medications in a a couple weeks.
[2024-12-17 19:11] LABS: Anion Gap 16 (12-20); Blood Urea Nitrogen 6 mg/dL (9-16); Calcium 11.0 mg/dL (8.4-10.2); Carbon Dioxide 33 mmol/L (22-29); Chloride 105 mmol/L (96-108); Creatinine Clr Calc Pharmacy 89.5; Estimated Glomerular Filt Rate > 60; Potassium 3.4 mmol/L (3.3-5.1); Sodium 151 mmol/L (135-145)
[2024-12-17 20:03] LABS: Venous Blood Gas Refer to POC result
[2024-12-17 20:05] LABS: VBG HCO3 35 mmol/L (22-26); VBG O2 % Saturation 86.0 %
[2024-12-17] MEDS: iohexoL 350 MG/ML 100 ML INFUS..BTL IV (20:27)
[2024-12-17 20:59] LABS: Glucose, Whole Blood 216 mg/dL (60-115)
[2024-12-17] MEDS: Lactated Ringers 1,000 ML 999 ML IV (21:26)
--- NOTE | 2024-12-17 21:49 | PC.NURSE ---
no indication viewable on hospitalist report. [facility] contacted, awaiting response
[2024-12-18] VITALS (8 sets, daily range): BP systolic 128–168; BP diastolic 82–102; PULSE 66–80; RESP 13–20; TEMP 36.6–36.8; O2SAT 21–99; BMI 28.2
[2024-12-18 01:06] LABS: Anion Gap 14 (12-20); Blood Urea Nitrogen 14 mg/dL (9-16); Calcium 9.8 mg/dL (8.4-10.2); Carbon Dioxide 32 mmol/L (22-29); Chloride 100 mmol/L (96-108); Creatinine Clr Calc Pharmacy 83.3; Estimated Glomerular Filt Rate > 60; Potassium 3.4 mmol/L (3.3-5.1); Sodium 143 mmol/L (135-145)
[2024-12-18] MEDS: Lactated Ringers 1,000 ML 100 ML IVCONT ×2 (04:11→14:03)
[2024-12-18 04:52] LABS: Hematocrit 27.3 % (42.0-52.0); Hemoglobin 8.7 g/dl (14.0-18.0); Mean Corpuscular HGB Conc 31.9 g/dl (31.0-36.0); Mean Corpuscular Hemoglobin 26.4 pg (27.0-33.0); Mean Corpuscular Volume 82.7 fL (80.0-98.0); NRBC Abs Auto 0.000 X10*3/uL (0.0-0.012); NRBC Pct Auto 0.0 /100WBC (0.0-0.2); Platelet Count 178 X10*3/uL (160-400); Red Blood Count 3.30 X10*6/uL (4.60-5.80); White Blood Count 5.1 X10*3/uL (4.8-10.8)
[2024-12-18 05:12] LABS: Alanine Aminotransferase 19 U/L (0-40); Albumin Level 3.7 g/dL (3.5-5.0); Alkaline Phosphatase 56 U/L (39-117); Anion Gap 14 (12-20); Aspartate Amino Transferase 31 U/L (5-37); Blood Urea Nitrogen 16 mg/dL (9-16); Calcium 10.0 mg/dL (8.4-10.2); Carbon Dioxide 32 mmol/L (22-29); Chloride 100 mmol/L (96-108); Creatinine Clr Calc Pharmacy 86.7; Estimated Glomerular Filt Rate > 60; Magnesium 1.2 mg/dL (1.6-2.6); Potassium 3.4 mmol/L (3.3-5.1); Sodium 143 mmol/L (135-145); Total Protein 5.8 g/dL (6.5-8.0)
[2024-12-18 05:27] LABS: Glucose, Whole Blood 169 mg/dL (60-115)
--- NOTE | 2024-12-18 05:32 | PC.NURSE ---
trialed on RA. desat to 88% falling asleep. placed on 2L NC
[2024-12-18] MEDS: Magnesium Sulfate/H2O 2 GM/50 ML PIGGYBACK IV (06:07)
[2024-12-18 07:28] LABS: Glucose, Whole Blood 164 mg/dL (60-115)
[2024-12-18] MEDS: Thiamine HCL 100 MG in 0.9 % Sodium Chloride 100 ML 200 MG IV (08:26)
[2024-12-18] MEDS: 0.9 % Sodium Chloride Flush 3 ML SYRINGE IVFLUSH ×2 (08:28→14:04)
[2024-12-18 08:32] LABS: Anion Gap 13 (12-20); Blood Urea Nitrogen 16 mg/dL (9-16); Calcium 10.1 mg/dL (8.4-10.2); Carbon Dioxide 33 mmol/L (22-29); Chloride 100 mmol/L (96-108); Creatinine Clr Calc Pharmacy 73.8; Estimated Glomerular Filt Rate > 60; Magnesium 1.9 mg/dL (1.6-2.6); Potassium 3.4 mmol/L (3.3-5.1); Sodium 143 mmol/L (135-145)
[2024-12-18] MEDS: buPROPion HCl XL 150 MG TAB.ER.24H PO (10:08)
[2024-12-18 13:01] LABS: Glucose, Whole Blood 222 mg/dL (60-115)
--- NOTE | 2024-12-18 13:18 | HO.PM.IMPN ---
Subjective Subjective Date of Service: 12/18/24 Review of Systems Follow up alcohol abuse feeling better but still with tremors Physical Exam Exam: Exam: Appearing in no acute distress lung sounds are clear to auscultation heart regular rate rhythm, clear S1, S2 positive bowel sounds, abdomen is soft, nontender neuro patient is alert x3, no focal deficits Vital Signs: Vital Signs: Last Vital Signs Temp 98.3 F 12/18/24 12:00 Pulse 66 12/18/24 12:00 Resp 17 12/18/24 12:00 BP 128/89 12/18/24 12:00 Pulse Ox 98 12/18/24 12:00 O2 Del Method Room Air 12/18/24 12:00 O2 Flow Rate 2 12/18/24 10:00 Oxygen Flow Rate 2 12/17/24 10:59 BMI result Body Mass Index 25.8 Objective Data Active Medications Acetaminophen (Acetaminophen 325 Mg Tablet) 650 mg PO Q6H PRN PRN Reason: Pain, Mild 1-3,fever,headache Last Admin: 12/17/24 21:16 Dose: 650 mg Documented By: LUIZA Atorvastatin Calcium (Atorvastatin Calcium 80 Mg Tablet) 80 mg PO DAILY [facility] Last Admin: 12/18/24 08:26 Dose: 80 mg Documented By: JERAMY Bupropion HCl (Bupropion Hcl Xl 150 Mg Tab.Er.24h) 150 mg PO DAILY [facility] Last Admin: 12/18/24 10:08 Dose: 150 mg Documented By: JERAMY Calcium Carbonate (Calcium Carbonate 750 Mg Tab.Chew) 750 mg PO Q4H PRN PRN Reason: Heartburn Dextrose (Dextrose 50 % 25 Gm/50 Ml Syringe) 25 gm IVPUSH Q15M PRN; Protocol PRN Reason: per Hypoglycemia Standing Ord. Famotidine (Famotidine/Pf 20 Mg/2 Ml Vial) 20 mg IVPUSH BID [facility] Last Admin: 12/18/24 08:27 Dose: 20 mg Documented By: JERAMY Folic Acid (Folic Acid 1 Mg Tablet) 1 mg PO BEDTIME [facility] Glucose (Glucose Gel 15 Gm Gel..Gram.) 15 gm PO Q15M PRN; Protocol PRN Reason: per Hypoglycemia Standing Ord. Lactated Ringer's (Lr) 1,000 mls @ 100 mls/hr IVCONT .Q10H [facility] Last Admin: 12/18/24 04:11 Dose: 100 mls/hr Documented By: CHELSEA Thiamine HCl 100 mg/ Sodium (Chloride) 101 mls @ 202 mls/hr IV DAILY [facility] Last Infusion: 12/18/24 08:57 Dose: Infused Documented By: JERAMY Ampicillin Sodium/Sulbactam (Sodium 3 gm/ Sodium Chloride) 100 mls @ 200 mls/hr IV Q6H [facility] Last Infusion: 12/18/24 07:07 Dose: Infused Documented By: JERAMY Insulin Human Lispro (Insulin Lispro 100 Unit/Ml 3 Ml Vial) 0 unit SUBCUT QIDACHS [facility]; Protocol Last Admin: 12/18/24 07:31 Dose: 2 unit Documented By: HUY Ipratropium Highland (Ipratropium Highland 0.5 Mg/2.5 Ml Solution) 0.5 mg INHALE RQ6H PRN PRN Reason: Shortness of Breath Labetalol HCl (Labetalol Hcl 100 Mg Tablet) 300 mg PO BID [facility] Last Admin: 12/18/24 08:25 Dose: 300 mg Documented By: JERAMY Magnesium Hydroxide (Milk Of Magnesia 30 Ml Oral.Susp) 30 ml PO DAILY PRN PRN Reason: Constipation Melatonin (Melatonin 3 Mg Tablet) 6 mg PO BEDTIME PRN PRN Reason: Insomnia Melatonin (Melatonin 3 Mg Tablet) 3 - 9 mg PO BEDTIME PRN PRN Reason: Sleep Multivitamins/Vitamin C (Multivitamin Tablet) 1 tab PO DAILY [facility] Last Admin: 12/18/24 08:26 Dose: 1 tab Documented By: JERAMY Omeprazole (Omeprazole 20 Mg Capsule.) 20 mg PO DAILY@0630 [facility] Last Admin: 12/18/24 06:52 Dose: 20 mg Documented By: LUIZA Ondansetron HCl (Ondansetron Hcl 4 Mg/2 Ml Vial) 4 mg IVPUSH Q8H PRN PRN Reason: Nausea and Vomiting Last Admin: 12/17/24 19:52 Dose: 4 mg Documented By: LUIZA Pharmacy Consult (Consult Rx Etoh Phenob Im/Po) 1 each MISCELLANE ONCE PRN; Protocol PRN Reason: Consult order Phenobarbital (Phenobarbital 15 Mg Tablet) 45 mg PO BID [facility] Stop: 12/19/24 21:01 Last Admin: 12/18/24 08:25 Dose: 45 mg Documented By: JERAMY Phenobarbital (Phenobarbital 30 Mg Tablet) 30 mg PO BID [facility] Stop: 12/21/24 21:01 Phenobarbital (Phenobarbital 30 Mg Tablet) 30 mg PO DAILY [facility] Stop: 12/23/24 09:01 Phenobarbital Sodium (Phenobarbital Sodium 130 Mg/Ml Vial) 130 mg IM Q4H PRN PRN Reason: alcohol withdrawal Quetiapine Fumarate (Quetiapine Fumarate 100 Mg Tablet) 100 - 300 mg PO BEDTIME PRN PRN Reason: Anxiety Sodium Chloride (0.9 % Sodium Chloride Flush 3 Ml Syringe) 3 ml IVFLUSH QSHIFT [facility] Last Admin: 12/18/24 08:28 Dose: 3 ml Documented By: JERAMY Labs 12/18/24 04:32 12/18/24 08:09 Labs: Laboratory Results - last 24 hr 12/17/24 12/17/24 12/17/24 18:49 20:00 20:55 MCV MCH MCHC RDW Plt Count MPV Absolute Nucleated RBC Nucleated RBC % (auto) VBG pH 7.47 H VBG pCO2 49 VBG pO2 60 VBG HCO3 35 H VBG O2 Saturation 86.0 VBG Base Excess 10.9 Anion Gap 16 Estim Creat Clear Calc 89.5 Estimated GFR > 60 POC Glucose 216 H Random Glucose 203 H Calcium 11.0 H D Magnesium Total Bilirubin AST ALT Alkaline Phosphatase Total Protein Albumin 12/18/24 12/18/24 12/18/24 00:44 04:32 05:23 MCV 82.7 MCH 26.4 L MCHC 31.9 RDW 15.7 Plt Count 178 D MPV 9.4 Absolute Nucleated RBC 0.000 Nucleated RBC % (auto) 0.0 VBG pH VBG pCO2 VBG pO2 VBG HCO3 VBG O2 Saturation VBG Base Excess Anion Gap 14 14 Estim Creat Clear Calc 83.3 86.7 Estimated GFR > 60 > 60 POC Glucose 169 H Random Glucose 259 H 200 H Calcium 9.8 D 10.0 Magnesium 1.2 L* Total Bilirubin 0.3 AST 31 ALT 19 Alkaline Phosphatase 56 Total Protein 5.8 L Albumin 3.7 12/18/24 12/18/24 12/18/24 07:25 08:09 12:58 MCV MCH MCHC RDW Plt Count MPV Absolute Nucleated RBC Nucleated RBC % (auto) VBG pH VBG pCO2 VBG pO2 VBG HCO3 VBG O2 Saturation VBG Base Excess Anion Gap 13 Estim Creat Clear Calc 73.8 Estimated GFR > 60 POC Glucose 164 H 222 H Random Glucose 237 H Calcium 10.1 Magnesium 1.9 Total Bilirubin AST ALT Alkaline Phosphatase Total Protein Albumin Assessment and Plan (1) Alcohol withdrawal: Status: Acute Plan 59 year old man admitted with alcohol withdrawal syndrome history of daily alcohol abuse Alcohol withdrawal syndrome History of alcohol withdrawal seizures, monitor Started on phenobarbital, also add as needed IM doses poor nutrition Continue IV fluids IV Pepcid IV thiamine, multivitamin and folic acid protein to diet Addiction Medicine consultation Hyponatremia, Resolved Likely secondary to dehydration Continue IV fluids Hypomagnesemia. Resolved Secondary to dehydration alcohol abuse Replete Hypercalcemia. Resolved 12.6 Likely secondary to dehydration Continue IV fluids Hypertension Continue home medications Mental health Continue home medications DVT prophylaxis with pneumatic compression boots Full code Quality Stroke Does the patient have a stroke diagnosis?: No VTE Prior VTE?: No VTE Risk Level:: Medical - moderate - high VTE Device Contraindication: N/A - Device Ordered VTE Drug Contraindication: N/A - Med Ordered
--- NOTE | 2024-12-18 13:44 | PC.NURSE ---
pt was able to eat but reports that starting this am he was having pain when he swallows, hx barrets esophagus per pt, [employer] Daisha De La Paz informed
--- NOTE | 2024-12-18 14:17 | MHC.CM.PN ---
Attempted to meet with patient in regards to discharge planning. Patient currently sleeping. No family present. CM assessment completed using medical record. Patient has a long standing history of ETOH abuse. Patient lives with his girlfriend Gabrielle and had no services prior to coming to the hospital. No services anticipated to be needed because patient is not homebound. Copy of HCP verified to be on file. Continue to monitor for d/c needs.
[2024-12-18 17:09] LABS: Glucose, Whole Blood 182 mg/dL (60-115)
[2024-12-18 20:13] LABS: Glucose, Whole Blood 184 mg/dL (60-115)
[2024-12-19] VITALS: BP 150/76; PULSE 73; RESP 20; TEMP 36.4; O2SAT 97
[2024-12-19 00:13] VITALS: BP 139/72; PULSE 91; RESP 12; TEMP 37.1; O2SAT 91
[2024-12-19] MEDS: Lactated Ringers 1,000 ML 100 ML IVCONT (00:17)
[2024-12-19 03:40] VITALS: BP 139/80; PULSE 73; RESP 20; TEMP 36.7; O2SAT 97
[2024-12-19 07:06] VITALS: BP 162/90; PULSE 79; RESP 20; TEMP 36.2; O2SAT 97
[2024-12-19 07:10] LABS: Glucose, Whole Blood 143 mg/dL (60-115)
[2024-12-19 08:48] VITALS: BP 162/90; PULSE 79
[2024-12-19] MEDS: buPROPion HCl XL 150 MG TAB.ER.24H PO (08:48)
[2024-12-19] MEDS: 0.9 % Sodium Chloride Flush 3 ML SYRINGE IVFLUSH (08:49)
[2024-12-19] MEDS: Thiamine HCL 100 MG in 0.9 % Sodium Chloride 100 ML 202 MG IV (08:49)
--- NOTE | 2024-12-19 09:34 | HO.ADDICT_ITS ---
History of Present Illness Date of Service: 12/19/2024 Chief Complaint: Alcohol withdrawal syndrome Reason for Consult: AUD Sources of Information: patient interviewed and chart reviewed HPI Narrative: Patient is a 59 year old male with history of AUD, DM, and Bipolar disorder. Medically admitted with acute alcohol withdrawal. Seen in room 462. He is awake, alert, pleasant and engaged in interview. Patient is well know to [facility] via previous admissions for alcohol withdrawal. Reports alcohol withdrawal sx are well managed. Denies any n/v. tremor improved per patient as he has a tremor at baseline. Patient with flat, sad affect. Stating that alcohol has caused a lot of issues for him Concerned that he may be incarcerated at the end of the month when he a has a court date. Discussed ongoing drinking --he states that he drinks to calm down my tremor, it's the only thing that works He states that he has seen a neurologist for the tremor, but does not feel medications are very effective in managing sx., He is very familiar with recovery supports and resources, including [facility]. Past Psychiatric History: Inpatient: more than 10 years, [facility] recently x 3 [place] X3. In [place], X2. PHP in past OP: Chasity Fitzgerald MD, and therapist Tamiko Muñiz, both through [facility]. suicide attempts: none Past medication trials: sertraline, seroquel, prozac Reports hx of manic behaviors/hypomania Medical Evaluation Reviewed: Yes Review of Systems Constitutional: Reports as per HPI and Reports no additional constitutional complaints Diagnostics Vital Signs (24Hr): Vital Signs - 24 hr 12/18/24 10:00 12/18/24 12:00 12/18/24 14:58 Temperature 98.3 F Pulse Rate 69 66 71 Respiratory Rate 17 19 Blood Pressure 168/94 H 128/89 Pulse Oximetry 97 98 Oxygen Delivery Method Nasal Cannula Room Air Oxygen Flow Rate 2 12/18/24 16:58 12/18/24 19:15 12/19/24 00:00 Temperature 98.1 F 98.3 F 97.6 F Pulse Rate 70 77 73 Respiratory Rate 18 18 20 Blood Pressure 149/82 H 163/83 H 150/76 H Pulse Oximetry 99 93 97 Oxygen Delivery Method Nasal Cannula Room Air Room Air Oxygen Flow Rate 2 12/19/24 00:13 12/19/24 03:40 12/19/24 07:06 Temperature 98.8 F 98.1 F 97.1 F Pulse Rate 91 73 79 Respiratory Rate 12 20 20 Blood Pressure 139/72 139/80 162/90 H Pulse Oximetry 91 L 97 97 Oxygen Delivery Method Nasal Cannula Room Air Room Air Oxygen Flow Rate 2 12/19/24 08:48 Temperature Pulse Rate 79 Respiratory Rate Blood Pressure 162/90 H Pulse Oximetry Oxygen Delivery Method Oxygen Flow Rate BMI result Body Mass Index 28.2 Labs 12/19/24 09:52 12/19/24 09:52 Labs: Laboratory Results - last 48 hr 12/17/24 12/17/24 12/17/24 11:11 12:13 12:16 WBC 5.8 RBC 4.24 L D Hgb 11.5 L D Hct 35.1 L D MCV 82.8 MCH 27.1 MCHC 32.8 RDW 15.7 Plt Count 261 D MPV 10.3 Immature Gran % (Auto) 0.5 H Neut % (Auto) 56.2 Lymph % (Auto) 32.4 [place] % (Auto) 7.6 Eos % (Auto) 2.6 Baso % (Auto) 0.7 Lymph # (Auto) 1.9 [place] # (Auto) 0.4 Eos # (Auto) 0.2 Baso # (Auto) 0.0 Abs Immat Gran (auto) 0.03 Absolute Neuts (auto) 3.3 Absolute Nucleated RBC 0.000 Nucleated RBC % (auto) 0.0 VBG pH VBG pCO2 VBG pO2 VBG HCO3 VBG O2 Saturation VBG Base Excess Sodium 151 H Potassium 3.6 Chloride 104 Carbon Dioxide 30 H Anion Gap 21 H BUN 6 L Creatinine 0.96 Estim Creat Clear Calc 87.6 Estimated GFR > 60 POC Glucose Random Glucose 219 H Calcium 12.6 H* D Magnesium 1.4 L* Total Bilirubin 0.2 AST 33 ALT 24 Alkaline Phosphatase 67 Total Protein 7.4 Albumin 4.7 Urine Opiates Screen Not Detected Ur Buprenorphine Scrn Not Detected Ur Oxycodone Screen Not Detected Urine Methadone Screen Not Detected Urine Fentanyl Screen Not Detected Ur Barbiturates Screen POSITIVE H Ur Phencyclidine Scrn Not Detected Ur Amphetamines Screen Not Detected U Benzodiazepines Scrn POSITIVE H Urine Cocaine Screen Not Detected U Marijuana (THC) Screen Not Detected Ethyl Alcohol 353 H* 12/17/24 12/17/24 12/17/24 18:49 20:00 20:55 WBC RBC Hgb Hct MCV MCH MCHC RDW Plt Count MPV Immature Gran % (Auto) Neut % (Auto) Lymph % (Auto) [place] % (Auto) Eos % (Auto) Baso % (Auto) Lymph # (Auto) [place] # (Auto) Eos # (Auto) Baso # (Auto) Abs Immat Gran (auto) Absolute Neuts (auto) Absolute Nucleated RBC Nucleated RBC % (auto) VBG pH 7.47 H VBG pCO2 49 VBG pO2 60 VBG HCO3 35 H VBG O2 Saturation 86.0 VBG Base Excess 10.9 Sodium 151 H Potassium 3.4 Chloride 105 Carbon Dioxide 33 H Anion Gap 16 BUN 6 L Creatinine 0.94 Estim Creat Clear Calc 89.5 Estimated GFR > 60 POC Glucose 216 H Random Glucose 203 H Calcium 11.0 H D Magnesium Total Bilirubin AST ALT Alkaline Phosphatase Total Protein Albumin Urine Opiates Screen Ur Buprenorphine Scrn Ur Oxycodone Screen Urine Methadone Screen Urine Fentanyl Screen Ur Barbiturates Screen Ur Phencyclidine Scrn Ur Amphetamines Screen U Benzodiazepines Scrn Urine Cocaine Screen U Marijuana (THC) Screen Ethyl Alcohol 12/18/24 12/18/24 12/18/24 00:44 04:32 05:23 WBC 5.1 RBC 3.30 L D Hgb 8.7 L D Hct 27.3 L D MCV 82.7 MCH 26.4 L MCHC 31.9 RDW 15.7 Plt Count 178 D MPV 9.4 Immature Gran % (Auto) Neut % (Auto) Lymph % (Auto) [place] % (Auto) Eos % (Auto) Baso % (Auto) Lymph # (Auto) [place] # (Auto) Eos # (Auto) Baso # (Auto) Abs Immat Gran (auto) Absolute Neuts (auto) Absolute Nucleated RBC 0.000 Nucleated RBC % (auto) 0.0 VBG pH VBG pCO2 VBG pO2 VBG HCO3 VBG O2 Saturation VBG Base Excess Sodium 143 143 Potassium 3.4 3.4 Chloride 100 100 Carbon Dioxide 32 H 32 H Anion Gap 14 14 BUN 14 16 Creatinine 1.01 0.97 Estim Creat Clear Calc 83.3 86.7 Estimated GFR > 60 > 60 POC Glucose 169 H Random Glucose 259 H 200 H Calcium 9.8 D 10.0 Magnesium 1.2 L* Total Bilirubin 0.3 AST 31 ALT 19 Alkaline Phosphatase 56 Total Protein 5.8 L Albumin 3.7 Urine Opiates Screen Ur Buprenorphine Scrn Ur Oxycodone Screen Urine Methadone Screen Urine Fentanyl Screen Ur Barbiturates Screen Ur Phencyclidine Scrn Ur Amphetamines Screen U Benzodiazepines Scrn Urine Cocaine Screen U Marijuana (THC) Screen Ethyl Alcohol 12/18/24 12/18/24 12/18/24 07:25 08:09 12:58 WBC RBC Hgb Hct MCV MCH MCHC RDW Plt Count MPV Immature Gran % (Auto) Neut % (Auto) Lymph % (Auto) [place] % (Auto) Eos % (Auto) Baso % (Auto) Lymph # (Auto) [place] # (Auto) Eos # (Auto) Baso # (Auto) Abs Immat Gran (auto) Absolute Neuts (auto) Absolute Nucleated RBC Nucleated RBC % (auto) VBG pH VBG pCO2 VBG pO2 VBG HCO3 VBG O2 Saturation VBG Base Excess Sodium 143 Potassium 3.4 Chloride 100 Carbon Dioxide 33 H Anion Gap 13 BUN 16 Creatinine 1.14 Estim Creat Clear Calc 73.8 Estimated GFR > 60 POC Glucose 164 H 222 H Random Glucose 237 H Calcium 10.1 Magnesium 1.9 Total Bilirubin AST ALT Alkaline Phosphatase Total Protein Albumin Urine Opiates Screen Ur Buprenorphine Scrn Ur Oxycodone Screen Urine Methadone Screen Urine Fentanyl Screen Ur Barbiturates Screen Ur Phencyclidine Scrn Ur Amphetamines Screen U Benzodiazepines Scrn Urine Cocaine Screen U Marijuana (THC) Screen Ethyl Alcohol 12/18/24 12/18/24 12/19/24 17:02 20:01 07:07 WBC RBC Hgb Hct MCV MCH MCHC RDW Plt Count MPV Immature Gran % (Auto) Neut % (Auto) Lymph % (Auto) [place] % (Auto) Eos % (Auto) Baso % (Auto) Lymph # (Auto) [place] # (Auto) Eos # (Auto) Baso # (Auto) Abs Immat Gran (auto) Absolute Neuts (auto) Absolute Nucleated RBC Nucleated RBC % (auto) VBG pH VBG pCO2 VBG pO2 VBG HCO3 VBG O2 Saturation VBG Base Excess Sodium Potassium Chloride Carbon Dioxide Anion Gap BUN Creatinine Estim Creat Clear Calc Estimated GFR POC Glucose 182 H 184 H 143 H Random Glucose Calcium Magnesium Total Bilirubin AST ALT Alkaline Phosphatase Total Protein Albumin Urine Opiates Screen Ur Buprenorphine Scrn Ur Oxycodone Screen Urine Methadone Screen Urine Fentanyl Screen Ur Barbiturates Screen Ur Phencyclidine Scrn Ur Amphetamines Screen U Benzodiazepines Scrn Urine Cocaine Screen U Marijuana (THC) Screen Ethyl Alcohol Imaging Radiology Impressions: ITS Impressions Chest X-Ray 12/17/24 12:35 IMPRESSION: No acute cardiopulmonary abnormality. Electronically signed by: Colby Fox MD 12/17/2024 01:06 PM EDT RP Elbow X-Ray 12/17/24 12:47 IMPRESSION: There is borderline displacement of the anterior fat pad of elbow joint raising question of a joint effusion. Occult radial head fracture is not entirely ruled out because of this. Correlate clinically, and if indicated, follow-up x-ray in 7-10 days of the left elbow joint. 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 Electronically signed by: Dakota Espinosa MD 12/17/2024 01:10 PM EDT RP Knee X-Ray 12/17/24 12:49 IMPRESSION: Right knee: There is a 1 cm wide small calcification that is rectangular in shape parallels the lateral tibial plateau in the middle third joint space of uncertain origin. This could represent a small avulsion fracture. It could also represent a central osteophyte. 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 Left knee: Mild osteoarthritis. No acute abnormality. Electronically signed by: Dakota Espinosa MD 12/17/2024 01:17 PM EDT RP Cervical Spine CT 12/17/24 13:10 IMPRESSION: No acute fracture. Stable degenerative changes. Electronically signed by: Dakota Espinosa MD 12/17/2024 01:44 PM EDT RP Head CT 12/17/24 13:10 IMPRESSION: No acute intracranial abnormality. Scaphocephaly. Electronically signed by: Dakota Espinosa MD 12/17/2024 01:48 PM EDT RP Mental Status Exam Mental Status Exam Level of Consciousness: Awake, Appropriate and Alert Patient Behavior: Appropriate and Cooperative Affect Description: Calm Speech Pattern: Clear Hallucinations: None Thought Process: Intact Thought Content: positive for Intact Judgement: Fair Judgement and Insight: limited insight Medications Medications Current Medications Acetaminophen (Acetaminophen 325 Mg Tablet) 650 mg PO Q6H PRN PRN Reason: Pain, Mild 1-3,fever,headache Last Admin: 12/17/24 21:16 Dose: 650 mg Atorvastatin Calcium (Atorvastatin Calcium 80 Mg Tablet) 80 mg PO DAILY [facility] Last Admin: 12/19/24 08:48 Dose: 80 mg Bupropion HCl (Bupropion Hcl Xl 150 Mg Tab.Er.24h) 150 mg PO DAILY [facility] Last Admin: 12/19/24 08:48 Dose: 150 mg Calcium Carbonate (Calcium Carbonate 750 Mg Tab.Chew) 750 mg PO Q4H PRN PRN Reason: Heartburn Dextrose (Dextrose 50 % 25 Gm/50 Ml Syringe) 25 gm IVPUSH Q15M PRN; Protocol PRN Reason: per Hypoglycemia Standing Ord. Famotidine (Famotidine/Pf 20 Mg/2 Ml Vial) 20 mg IVPUSH BID [facility] Last Admin: 12/19/24 08:49 Dose: 20 mg Folic Acid (Folic Acid 1 Mg Tablet) 1 mg PO BEDTIME [facility] Last Admin: 12/18/24 21:33 Dose: 1 mg Glucose (Glucose Gel 15 Gm Gel..Gram.) 15 gm PO Q15M PRN; Protocol PRN Reason: per Hypoglycemia Standing Ord. Thiamine HCl 100 mg/ Sodium (Chloride) 101 mls @ 202 mls/hr IV DAILY [facility] Last Infusion: 12/19/24 09:19 Dose: Infused Insulin Human Lispro (Insulin Lispro 100 Unit/Ml 3 Ml Vial) 0 unit SUBCUT QIDACHS [facility]; Protocol Last Admin: 12/19/24 07:41 Dose: Not Given Ipratropium [place] (Ipratropium [place] 0.5 Mg/2.5 Ml Solution) 0.5 mg INHALE RQ6H PRN PRN Reason: Shortness of Breath Labetalol HCl (Labetalol Hcl 100 Mg Tablet) 300 mg PO BID [facility] Last Admin: 12/19/24 08:48 Dose: 300 mg Magnesium Hydroxide (Milk Of Magnesia 30 Ml Oral.Susp) 30 ml PO DAILY PRN PRN Reason: Constipation Melatonin (Melatonin 3 Mg Tablet) 6 mg PO BEDTIME PRN PRN Reason: Insomnia Last Admin: 12/18/24 22:11 Dose: 6 mg Melatonin (Melatonin 3 Mg Tablet) 3 - 9 mg PO BEDTIME PRN PRN Reason: Sleep Metformin HCl (Metformin Hcl 1,000 Mg Tablet) 1,000 mg PO BID [facility] Last Admin: 12/19/24 08:49 Dose: 1,000 mg Multivitamins/Vitamin C (Multivitamin Tablet) 1 tab PO DAILY [facility] Last Admin: 12/19/24 08:48 Dose: 1 tab Omeprazole (Omeprazole 20 Mg Capsule.Dr) 20 mg PO DAILY@0630 [facility] Last Admin: 12/19/24 05:54 Dose: 20 mg Ondansetron HCl (Ondansetron Hcl 4 Mg/2 Ml Vial) 4 mg IVPUSH Q8H PRN PRN Reason: Nausea and Vomiting Last Admin: 12/17/24 19:52 Dose: 4 mg Pharmacy Consult (Consult Rx Etoh Phenob Im/Po) 1 each MISCELLANE ONCE PRN; Protocol PRN Reason: Consult order Phenobarbital (Phenobarbital 15 Mg Tablet) 45 mg PO BID [facility] Stop: 12/19/24 21:01 Last Admin: 12/19/24 08:48 Dose: 45 mg Phenobarbital (Phenobarbital 30 Mg Tablet) 30 mg PO BID [facility] Stop: 12/21/24 21:01 Phenobarbital (Phenobarbital 30 Mg Tablet) 30 mg PO DAILY [facility] Stop: 12/23/24 09:01 Phenobarbital Sodium (Phenobarbital Sodium 130 Mg/Ml Vial) 130 mg IM Q4H PRN PRN Reason: alcohol withdrawal Quetiapine Fumarate (Quetiapine Fumarate 100 Mg Tablet) 100 - 300 mg PO BEDTIME PRN PRN Reason: Anxiety Sodium Chloride (0.9 % Sodium Chloride Flush 3 Ml Syringe) 3 ml IVFLUSH QSHIFT [facility] Last Admin: 12/19/24 08:49 Dose: 3 ml Allergies Allergies Allergy/AdvReac Type Severity Reaction Status Date / Time No Known Allergies (No Known Allergy Verified 12/17/24 11:04 Allergies*) Assessment & Plan Assessment & Plan (1) Alcohol use disorder, severe, dependence: Status: Acute Code(s): F10.20 - Alcohol dependence, uncomplicated Assessment and Plan: * withdrawal sx managed with phenobarbital * patient not interested in GLEN at this time * surgery nurse to follow up with additional resources as requested (IOP) Total time managing care of this patient today __20__ minutes. [facility] Past Medical History Medical History (Updated 12/17/24 @ 17:21 by Daisha De La Paz NP) Barretts esophagus History of varicose veins Fatty liver Obstructive sleep apnea Essential and other specified forms of tremor Hypersomnolence Diabetes mellitus Alcoholic ketoacidosis Alcohol use disorder, severe, dependence Recurrent moderate major depressive disorder with anxiety Insomnia History of alcoholic hepatitis HTN (hypertension) Acute hepatitis Obesity (BMI 30-39.9) GERD without esophagitis Mixed hyperlipidemia Family History Family History Father Advanced cirrhosis of liver Alcoholic cirrhosis Substance use disorder Mother Dementia Maternal Grandfather Substance use disorder Sister Substance use disorder Maternal Grandfather Colon cancer Prostate cancer Surgical History Surgical History History of right-sided carotid endarterectomy History of esophagogastroduodenoscopy (EGD) H/O colonoscopy Social History Social History Household Members: Spouse Household Members Other:: Cousin Housing: House Are you a primary geriatric care manager to a significant other at home: No Do you presently have visiting nurse or other home services: No Unable to assess alcohol history related to: Unknown Alcohol intake: current Alcohol intake frequency: 3 or more drinks per day Alcohol type: hard liquor Comment: seizure pads Patient Tobacco Use Status: Former Tobacco user Tobacco use type: Cigarette Years Smoked: quit 10 years ago e-Cigarette/Vaping Use: Never Used Second Hand Smoke Exposure: No Substance Use Type: Marijuana Advance Directives Date on File: 10/23/21 service: No Current occupational status: 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
[2024-12-19 10:11] LABS: Hematocrit 29.5 % (42.0-52.0); Hemoglobin 9.4 g/dl (14.0-18.0); Mean Corpuscular HGB Conc 31.9 g/dl (31.0-36.0); Mean Corpuscular Hemoglobin 26.6 pg (27.0-33.0); Mean Corpuscular Volume 83.3 fL (80.0-98.0); NRBC Abs Auto 0.000 X10*3/uL (0.0-0.012); NRBC Pct Auto 0.0 /100WBC (0.0-0.2); Platelet Count 188 X10*3/uL (160-400); Red Blood Count 3.54 X10*6/uL (4.60-5.80); White Blood Count 4.9 X10*3/uL (4.8-10.8)
[2024-12-19 10:39] LABS: Anion Gap 14 (12-20); Blood Urea Nitrogen 11 mg/dL (9-16); Calcium 9.6 mg/dL (8.4-10.2); Carbon Dioxide 31 mmol/L (22-29); Chloride 101 mmol/L (96-108); Creatinine Clr Calc Pharmacy 78.9; Estimated Glomerular Filt Rate > 60; Potassium 3.7 mmol/L (3.3-5.1); Sodium 142 mmol/L (135-145)
[2024-12-19 11:00] LABS: Glucose, Whole Blood 245 mg/dL (60-115)
[2024-12-19 11:03] LABS: Magnesium 1.4 mg/dL (1.6-2.6)
--- NOTE | 2024-12-19 11:17 | MHC.RECOVRN ---
TW met with pt to offer continued support relating to AUD. Pt was sitting in bed, watching TV on approach. He states, Other than being depressed I feel better, physically anyway . No obvious signs of withdrawal witnessed or reported. TW attempted to discuss GLEN however, pt was quickly dismissive and reported, I'll be going [facility] penitentiary in 2 weeks so I really don't see the point . Pt was educated that many medications are continued despite being incarcerated however pt declined to initiate GLEN at this time. Pt reports he is discharging later today and declines the need for further education, resources, or interventions. TW provided pt with a list of area AA meetings as pt reports they have been somewhat helpful in the past. Pt voiced appreciation and denies any questions or concerns at this time. Tw available as needed for ongoing recovery support.
[2024-12-19 11:20] VITALS: BP 131/87; PULSE 76; RESP 20; TEMP 36.7; O2SAT 97
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
--- NOTE | 2024-12-19 12:00 | MHC.CM.PN ---
Addendum entered by Pao Britton 12/19/24 14:28: Pts ride is no longer available, he will transport home via lyft ride. Original Note: Pt is medically cleared for discharge home self-care, he has arranged his own transport home today.
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
[2024-12-19] MEDS: Magnesium Sulfate/H2O 2 GM/50 ML PIGGYBACK IV (12:13)
== END 2024-12-19 14:46 | disposition home or self-care (01) | DRG 775 ==
LOC: HO.ED 16:59 → HO.EDOVER 17:49 → HO.IMC 12-18 15:37
PROVIDERS: Internal Medicine; Admitting Provider Nurse Practitioner Acute Care; Emergency Provider Student in an Organized Health Care Education/Training Program; PCP Nurse Practitioner Family; Visit Provider Nurse Practitioner Acute Care
DX: F10.239 Alcohol dependence with withdrawal, unspecified (principal); F10.229 Alcohol dependence with intoxication, unspecified; E87.1 Hypo-osmolality and hyponatremia; E86.0 Dehydration; Y90.8 Blood alcohol level of 240 mg/100 ml or more; E83.42 Hypomagnesemia; E83.52 Hypercalcemia; E11.9 Type 2 diabetes mellitus without complications; I10 Essential (primary) hypertension; Z79.84 Long term (current) use of oral hypoglycemic drugs; Z87.891 Personal history of nicotine dependence; Z79.899 Other long term (current) drug therapy
CPT/HCPCS: 36415; 70450; 71046; 71275; 72125; 73070; 73562; 80048; 80053; 80307; 82803; 82947; 83735; 85025; 85027; 93005; 99285; J0295; J1308; J2405; J2560; J3411; J3475; J7120; Q9967; S9485

== ENCOUNTER → 2024-12-17 11:09 | Outpatient (BNV) | payer OTHER, SELFPAY | PROVIDERS: Emergency Provider Student in an Organized Health Care Education/Training Program; Visit Provider Internal Medicine Cardiovascular Disease | DX: I44.4 Left anterior fascicular block (principal); R00.0 Tachycardia, unspecified | CPT/HCPCS: 93010 ==

== ENCOUNTER → 2024-12-17 12:10 | Outpatient (BNV) | payer OTHER, SELFPAY | PROVIDERS: Emergency Provider Student in an Organized Health Care Education/Training Program; Visit Provider Radiology Diagnostic Radiology | DX: Z03.89 Encounter for observation for other suspected diseases and conditions ruled out (principal); S09.90XA Unspecified injury of head, initial encounter; M50.30 Other cervical disc degeneration, unspecified cervical region; F10.129 Alcohol abuse with intoxication, unspecified; Q75.01 Sagittal craniosynostosis; R06.02 Shortness of breath; Z04.3 Encounter for examination and observation following other accident; M89.261 Other disorders of bone development and growth, right tibia; S52.122A Displaced fracture of head of left radius, initial encounter for closed fracture; W19.XXXA Unspecified fall, initial encounter | CPT/HCPCS: 71046; 71275 ==

== ENCOUNTER → 2024-12-17 17:36 | Outpatient (BNV) | payer OTHER, SELFPAY | PROVIDERS: Admitting Provider Nurse Practitioner Acute Care; Emergency Provider Student in an Organized Health Care Education/Training Program; PCP Nurse Practitioner Family; Visit Provider Nurse Practitioner Psychiatric/Mental Health | DX: F10.20 Alcohol dependence, uncomplicated (principal) | CPT/HCPCS: 99221 ==

== ENCOUNTER → 2024-12-17 17:36 | Outpatient (BNV) | payer OTHER, SELFPAY | PROVIDERS: Admitting Provider Nurse Practitioner Acute Care; Emergency Provider Student in an Organized Health Care Education/Training Program; PCP Nurse Practitioner Family; Visit Provider Nurse Practitioner Acute Care | DX: F10.930 Alcohol use, unspecified with withdrawal, uncomplicated (principal) | CPT/HCPCS: 99232 ==

== ENCOUNTER 2025-03-15 11:01 | Outpatient (AMB) | payer OTHER, SELFPAY ==
--- NOTE | 2025-03-15 11:10 | AM.OFFWIN_ITS ---
Intake Vital Signs 03/15/25 11:15 Height 5 ft 7 in Weight 200 lb BMI 31.3 BP 158/90 H Blood Pressure Location Rt brachial Position Sitting Pulse 70 Pulse Source Pulse Oximeter Pulse Oximetry (%) 95 Oxygen Delivery Method Room Air Intake Visit Reasons: EP-rt hand lump & pain, neck irritation Intake Note: Patient presents c/o lumps on right hand x1 year but last month have gotten painful, specifically when writing. Patient also mentions bumps on face & neck that leak clear fluid. Patient Tobacco Use Status: Former Tobacco user Allergies No Known Allergies (No Known Allergies*) Allergy (Verified 03/15/25 11:18) HPI HPI Comments History of Present Illness Details This is a 59-year-old male with past medical history significant for alcohol use disorder (currently in remission) who presented to the walk-in clinic with multiple complaints. First, patient complaining of right hand nodules, which he has noticed for the past year but they just recently became painful. he states he has a really hard time holding a pen or writing due to the nodules and pain. He denies any trauma or injury to the area. Second, patient is complaining of skin lesions of his neck and cheek that have been present for months as well. He states they occasionally have some yellow crusting and occasionally drain clear fluid. He denies any fevers or chills. [facility] Medical History (Updated 12/23/24 @ 00:01 by Blas Fischer) Barretts esophagus History of varicose veins Fatty liver Obstructive sleep apnea Essential and other specified forms of tremor Hypersomnolence Diabetes mellitus Alcoholic ketoacidosis Alcohol use disorder, severe, dependence Recurrent moderate major depressive disorder with anxiety Insomnia History of alcoholic hepatitis HTN (hypertension) Acute hepatitis Obesity (BMI 30-39.9) GERD without esophagitis Mixed hyperlipidemia Surgical History History of right-sided carotid endarterectomy History of esophagogastroduodenoscopy (EGD) H/O colonoscopy Family History Father Advanced cirrhosis of liver Alcoholic cirrhosis Substance use disorder Mother Dementia Maternal Grandfather Substance use disorder Sister Substance use disorder Maternal Grandfather Colon cancer Prostate cancer Social History (Reviewed 08/08/24 @ 10:43 by Miky Avitia [facility] Household Members: Spouse Household Members Other:: Cousin Housing: House Are you a primary landcare officer to a significant other at home: No Do you presently have visiting nurse or other home services: No Alcohol intake: current Alcohol intake frequency: 3 or more drinks per day Alcohol type: hard liquor Comment: seizure pads Patient Tobacco Use Status: Former Tobacco user Tobacco use type: Cigarette Years Smoked: quit 10 years ago e-Cigarette/Vaping Use: Never Used Second Hand Smoke Exposure: No Substance Use Type: Marijuana Advance Directives Date on File: 10/23/21 service: No Current occupational status: 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 Review of Systems Const All systems reviewed & are unremarkable except as noted in HPI and below Reports no additional complaints Eyes Reports no additional complaints ENT Reports no additional complaints Card Reports no additional complaints Resp Reports no additional complaints GI Reports no additional complaints Reports no additional complaints Musc Reports no additional complaints Skin/Breast Reports system reviewed and no additional complaints, except as documented Neuro Reports no additional complaints Psych Reports no additional complaints Endo Reports no additional complaints Santo/Lymph Reports no additional complaints Aller/Immun Reports no additional complaints Physical Exam Exam Exam: Vital signs reviewed. Constitutional: Non-toxic appearing. No acute distress. Well-developed and well-nourished. HEENT: Normocephalic and atraumatic. PERRL/EOMI. Skin: Warm and dry. There is a small pustule to the right cheek just anterior to the ear with overlying yellow crusting as well as a pustule to the left posterior neck with overlying yellow crusting. There is no purulent drainage or significant surrounding erythema. Neck: Full and painless range of motion. No cervical lymphadenopathy. Cardio: Regular rate. No lower extremity edema. No JVD. Pulmonary: No respiratory distress. No accessory muscle usage. Musculoskeletal: There are palpable taut cords/bands as well as subcutaneous nodules to the palmar aspect of the right hand overlying the third and fourth metacarpals with mild flexion contractures of the thrid and fourth phalanges. Neuro: Alert and oriented x4. Cranial nerves 2-12 grossly intact. No focal deficits appreciated. Psych: Normal mood and affect. Vital Signs: Last Vital Signs Pulse 70 03/15/25 11:15 BP 158/90 H 03/15/25 11:15 Pulse Ox 95 03/15/25 11:15 Oxygen Delivery Method Room Air 03/15/25 11:15 BMI result Body Mass Index 31.3 Assessment & Plan Assessment & Plan (1) Dupuytren contracture: Code(s): M72.0 - Palmar fascial fibromatosis [Dupuytren] (2) Folliculitis: Code(s): L73.9 - Follicular disorder, unspecified Plan 59-year-old male with history of alcohol use disorder currently in remission who presented to the walk-in clinic complaining of painful cord/ nodule to the palmar aspect of the right hand. History and physical most consistent with Dupuytren's contractures. Patient was given a referral to orthopedics although he may require referral to a hand specialist, which can not be done here. He was instructed to reach out to his primary care physician if he requires a hand specialist referral. He had also complained of skin lesions to his left posterior neck as well as his right cheek. On physical examination, there are small pustules with mild surrounding erythema and overlying yellow crusting. History and physical most consistent with folliculitis barbae versus impetigo. Patient given prescription for mupirocin topical ointment. He was instructed to continue with warm compress es. Patient instructed to return here or to the emergency department if he were to develop worsening erythema, fever /chills, or worsening purulent drainage. Patient verbalized understanding and he is in agreement with the plan. Orders: Referrals Orthopedics Referral M72.0 - Palmar fascial fibromatosis [Dupuytren] Medications: New mupirocin 2% (Centany) 1 appl topical BID 22 grams 0RF Coding Level of Care Code Est Pt Level 4 (80001) Diagnoses Dupuytren contracture M72.0 Folliculitis L73.9
[2025-03-15 11:15] VITALS: BP 158/90; PULSE 70; O2SAT 95; BMI 31.3
--- OUTSIDE RECORDS SUMMARY | 2025-03-15 13:30 | XMS_ITS | Clinical Summary ---
Author Organization [facility] Address [address] [place] [address] Care Team Providers Care Substance Abuse Nurse Name Role Phone Fritz Shelley MD Primary Care Provider [phone] Allergies No known active allergies Medications gemfibrozil [...] 2) 08/08/2017 Influenza Vaccine 11/09/2024 COVID-19 Vaccine (1 - season) 2024 RSV Vaccine 50 years and old er and Patients (1 - 1-dose 75+ series) 08/08/2042 Insurance [facility] Care Teams Substance Abuse Nurse Relationship Specialty Start Date End Date Fritz Shelley MD [address] [place] [address] [place] [id number] PCP - General Internal Medicine 12/11/19
== END 2025-03-15 12:40 | disposition home or self-care (01) ==
PROVIDERS: PCP Nurse Practitioner Family; Visit Provider Physician Assistant Medical
DX: M72.0 Palmar fascial fibromatosis [Dupuytren] (principal); L73.9 Follicular disorder, unspecified

== ENCOUNTER → 2025-03-15 11:01 | Outpatient (BNVA) | payer OTHER, SELFPAY | PROVIDERS: PCP Nurse Practitioner Family; Visit Provider Physician Assistant Medical | DX: M72.0 Palmar fascial fibromatosis [Dupuytren] (principal); L73.9 Follicular disorder, unspecified | CPT/HCPCS: 99212 ==